=== PATIENT | female | born 1950 | race Caucasian/White ===

== ENCOUNTER 2018-03-14 12:08 | Inpatient (IN) | payer OTHER ==
[2018-03-14] MEDS ORDERED: IPRATROPIUM BROM 0.5MG/2.5ML ONE (12:58)
[2018-03-14] MEDS ORDERED: ALBUTEROL 2.5 MG/3 ML NEB SOL ONE (12:58)
[2018-03-14 13:13] LABS: Absolute Lymphocytes (CBC) 0.7 K/uL (0.7-4.9); Absolute Monocytes 0.8 K/uL (0.1-1.3); Absolute Neutrophil 6.7 K/uL (1.8-8.0); Basophils % 0.3 % (0-1.3); Eosinophils % 0.3 % (0-4.4); Hematocrit 43.4 % (36.0-45.0); Lymphocytes % 9.1 % (15.3-44.8); MPV 9.2 fL (7.6-11.3); Monocytes % 9.4 % (3.3-12.3); RBC Red Blood Cell Count 4.55 M/uL (3.86-4.86)
--- NOTE | 2018-03-14 13:13 | RAD REPORT ---
EXAM DESCRIPTION: Sergio Single View03/14/2018 1:00 pm CLINICAL HISTORY: Shortness of breath COMPARISON: 2014 FINDINGS: The lungs appear clear of acute infiltrate. The heart is normal size IMPRESSION: No acute abnormalities displayed
[2018-03-14 13:14] LABS: Protime INR 0.92
[2018-03-14 14:31] LABS: ALT/SGPT 37 U/L (12-78); AST/SGOT 31 U/L (15-37); Albumin 2.9 g/dL (3.4-5.0); Alkaline Phosphatase 77 U/L (45-117); BUN Blood Urea Nitrogen 13 mg/dL (7-18); Bicarbonate 36 mmol/L (21-32); Bilirubin Direct 0.3 mg/dL (0-0.2); Bilirubin Total 0.6 mg/dL (0.2-1.0); Glucose Level 99 mg/dL (74-106); Magnesium 1.9 mg/dL (1.8-2.4); NT PRO-BNP 479 pg/mL (<125); Potassium 4.1 mmol/L (3.5-5.1); Protein, Total 6.2 g/dL (6.4-8.2); Troponin (Emerg Dept Use Only) < 0.02 ng/mL (0.0-0.045)
[2018-03-14 14:34] LABS: Sodium Level 111 mmol/L (136-145)
[2018-03-14] MEDS ORDERED: NA CHLORIDE 3% 100 ML IV ONE ×2 (15:00)
--- NOTE | 2018-03-14 15:26 | ER ---
Nurse's Notes [facility] Name: Earnest Baker Age: 67 yrs Sex: Female : 1950 Arrival Date: 03/14/2018 Time: 12:10 Bed 18 Private MD: Diagnosis: Hyponatremia ;Chronic obstructive pulmonary disease, unspecified;Urinary tract infection, site not specified Presentation: 03/14 12:10 Presenting complaint: EMS states: called out for depression for several days, pt em reports loss of appetite for 2 weeks, pt reports wants to shoot herself. Transition of care: patient was not received from another setting of care. Onset of symptoms was February 2018. Risk Assessment: Do you want to hurt yourself or someone else? Patient reports desire/thoughts of hurting themselves or someone else. Provider notified. Initial Sepsis Screen: Does the patient meet any 2 criteria? No. Patient's initial sepsis screen is negative. Does the patient have a suspected source of infection? No. Patient's initial sepsis screen is negative. Care prior to arrival: None. 12:10 Method Of Arrival: EMS: [facility] em 12:25 Acuity: AMANDA 2 iw Triage Assessment: 12:14 General: Appears in no apparent distress. comfortable, Behavior is calm, cooperative, em flat. Pain: Complains of pain in lumbar area. Historical: - Allergies: 12:14 No Known Allergies; em - Home Meds: 12:14 lisinopril 10 mg Oral tab [Active]; em - PMHx: 12:14 COPD; Hypertension; em - Immunization history:: Adult Immunizations up to date. - Social history:: Smoking status: Patient uses tobacco products, smokes one pack cigarettes per day. - Ebola Screening: : Patient negative for fever greater than or equal to 101.5 degrees Fahrenheit, and additional compatible Ebola Virus Disease symptoms Patient denies exposure to infectious person Patient denies travel to an Ebola-affected area in the 21 days before illness onset No symptoms or risks identified at this time. Screenin:19 Abuse screen: Denies threats or abuse. Nutritional screening: No deficits noted. em Tuberculosis screening: No symptoms or risk factors identified. Fall Risk None identified. Assessment: 12:14 General: Appears in no apparent distress. uncomfortable, Behavior is calm, drowsy, em flat, doesn't want to keep going with life, reports depression. Pain: Complains of pain in lumbar area Pain currently is 8 out of 10 on a pain scale. Quality of pain is described as pressure. Neuro: Level of Consciousness is awake, obeys commands, drowsy. Oriented to person, place, time, situation, Weakness Speech is slurred. Cardiovascular: Denies chest pain. Respiratory: Airway is patent Respiratory effort is even, unlabored, Respiratory pattern is regular, symmetrical, Breath sounds with wheezes bilaterally. GI: Abdomen is obese, Reports intolerance of fluids, intolerance of food, nausea. Derm: Skin is intact, Skin is pink, warm \T\ dry. Rash noted that is on buttocks. Musculoskeletal: Range of motion: intact in all extremities. 12:30 Reassessment: I agree with above assessment by Dewey Gonzalez LVN. iw 13:30 Reassessment: Patient appears in no apparent distress at this time. Patient and/or em family updated on plan of care and expected duration. Pain level reassessed. drowsy and sleepy, family at bedside. 14:30 Reassessment: Patient appears in no apparent distress at this time. Patient and/or em family updated on plan of care and expected duration. Pain level reassessed. family at bedside. 15:30 Cardiovascular: Rhythm is pt had one run of V-tach noted at 1529 on vehicle monitor technician, tw2 FABY Bustamante notified, EKG printed from monitor for her chart. 15:48 Reassessment: Patient appears in no apparent distress at this time. Patient and/or em family updated on plan of care and expected duration. Pain level reassessed. NA Chloride 3% complete. 16:23 Reassessment: Dr. Tellez at bedside to assess pt, verbal order received to hold second iw infusion of 3% sodium Chloride, orders for repeat BMP now and start patient on NS infusion at 60 ml/hr. 16:48 Reassessment: Patient appears in no apparent distress at this time. Patient and/or em family updated on plan of care and expected duration. Pain level reassessed. Patient is alert, oriented x 3, equal unlabored respirations, skin warm/dry/pink. resting comfortably in bed, pending ICU admission, pt still drowsy, answers questions appropriately, wakes up with verbal stimuli. 17:29 Reassessment: Patient appears in no apparent distress at this time. Patient and/or em family updated on plan of care and expected duration. Pain level reassessed. Patient is alert, oriented x 3, equal unlabored respirations, skin warm/dry/pink. Dr. Tellez notified of repeat BMP per FABY Best, no new orders given, pending room assignment. 18:02 Reassessment: Patient appears in no apparent distress at this time. Patient and/or em family updated on plan of care and expected duration. Pain level reassessed. Patient is alert, oriented x 3, equal unlabored respirations, skin warm/dry/pink. melt house supervisor notified, waiting for ICU room to be cleaned before room assignment. Psych: 12:15 Subjective: Patient's mood is hopeless, Delusions are denied, Hallucinations are denied em Having thoughts of suicide. Objective: Patient is uncooperative, Speech is normal, Affect is flat. Interventions: Removed personal items and placed in bag. Patient placed in hospital gown. Searched person for dangerous items. Belonging list filled out. Suicide Risk Assessment: Sad Person Scale: Sex of patient: Female: Score 0 points. Age of patient: Score 1 point if patient is over 65. Depression: Score 1 point if signs of depression are present. Organized Plan: Score 1 point if patient had a plan in place. Safety Checks: No visitors are present at this time. Commitment: Patient will be a voluntary commitment. Vital Signs: 12:14 BP 140 / 57; Pulse 73; Resp 22; Temp 97.5(O); Pulse Ox 96% on 2 lpm NC; Weight 75.75 em kg; Height 5 ft. 3 in. (160.02 cm); Pain 8/10; 13:04 BP 108 / 71; Pulse 69; Resp 20; Pulse Ox 100% on Nebulizer Mask; ag 14:00 BP 103 / 60; Pulse 70; Resp 20; Pulse Ox 100% on 2 lpm NC; em 15:00 BP 102 / 56; Pulse 77; Resp 18; Pulse Ox 99% on 2 lpm NC; em 15:51 BP 126 / 64; Pulse 69; Resp 17; Pulse Ox 97% on 2 lpm NC; em 16:15 BP 117 / 61; Pulse 66; Resp 20; Pulse Ox 98% on 2 lpm NC; em 16:55 BP 126 / 67; Pulse 71; Resp 18; Pulse Ox 99% on 2 lpm NC; em 17:37 BP 127 / 71; Pulse 77; Resp 16; Pulse Ox 98% on 2 lpm NC; iw 18:05 BP 131 / 65; Pulse 77; Resp 16; Pulse Ox 100% on 2 lpm NC; em 12:14 Body Mass Index 29.58 (75.75 kg, 160.02 cm) em ED Course: 12:10 Patient arrived in ED. em 12:14 Arm band placed on. em 12:25 Triage completed. iw 12:27 Nasir Angeles PA is PHCP. jr8 12:27 Tai Hall MD is Attending Physician. jr8 12:43 Dewey Gonzalez LVN is Primary Nurse. em 12:49 Missed attempt(s): 22 gauge hand. ag4 13:00 X-ray completed. Portable x-ray completed in exam room. Patient tolerated procedure jb2 well. 13:00 Initial lab(s) drawn, by me, sent to lab. Inserted saline lock: 20 gauge in right em antecubital area, using aseptic technique. Blood collected. 13:02 XRAY Chest (1 view) In Process Unspecified. EDMS 13:03 Safety checks: Items removed: Door open/sign placed on door: yes. Family/friend ag present: yes. Family/friends encouraged to stay with patient. Sitter present: Yes. Side rails up X2. hall monitor on. Pulse ox on. NIBP on. Sitter at bedside. 13:15 Safety checks: Items removed: yes. Door open/sign placed on door: yes. Family/friend ag present: yes. Sitter present: Yes. 13:30 Safety checks: Items removed: yes. Door open/sign placed on door: yes. Family/friend ag present: yes. Sitter present: Yes. 13:45 Safety checks: Items removed: yes. Door open/sign placed on door: yes. Family/friend ag present: no. Sitter present: Yes. 14:00 Safety checks: Items removed: yes. Door open/sign placed on door: yes. Family/friend ag present: yes. Sitter present: Yes. 14:15 Safety checks: Items removed: yes. Door open/sign placed on door: yes. Family/friend ag present: yes. Sitter present: Yes. 14:30 Safety checks: Items removed: yes. Door open/sign placed on door: yes. Family/friend ag present: yes. Sitter present: Yes. 14:30 Assisted to bedside commode. Bath given. Linen changed. ag 14:45 Safety checks: Items removed: yes. Door open/sign placed on door: yes. Family/friend ag present: yes. Sitter present: Yes. 15:24 Damion Tellez MD is Hospitalizing Provider. jr8 16:05 Lo cath inserted, using sterile technique, 18 Fr., by ks, balloon inflated, to em gravity drainage, urine specimen collected. returned sanam urine. Patient tolerated well. 18:39 Patient admitted, IV remains in place. em 18:40 No provider procedures requiring assistance completed. em Administered Medications: 12:57 Drug: Albuterol - atroVENT (3:1) (2.5 mg - 0.5 mg) 3 ml Route: Nebulizer; em 15:28 Follow up: Response: No adverse reaction em 15:24 Drug: sodium chloride 3% 100 ml Route: IV; Rate: 1 calculated rate; Site: right em antecubital; 15:48 Follow up: Response: No adverse reaction; IV Status: Completed infusion; IV Intake: em 150ml 16:45 Drug: NS 0.9% 1000 ml Route: IV; Rate: 60 ml/hr; Site: right antecubital; iw 17:22 Drug: Rocephin 1 grams Route: IV; Rate: calculated rate; Site: right antecubital; iw 17:34 Follow up: Response: No adverse reaction; IV Status: Completed infusion; IV Intake: 10mlem Intake: 15:48 IV: 150ml; Total: 150ml. em 17:34 IV: 10ml; Total: 160ml. em Outcome: 15:25 Decision to Hospitalize by Provider. jr8 18:39 Admitted to ICU accompanied by nurse, accompanied by tech, via stretcher, room 7, with em oxygen, on monitor, with chart, Report called to MANAV Watts 18:39 Condition: good 18:39 Instructed on the need for admit, Demonstrated understanding of instructions. 18:43 Patient left the ED. em Signatures: Dispatcher [employer] Jean Carlos Sims jb2 Dewey Gonzalez, PRINTING PLATE SETTER PRINTING PLATE SETTER em Yin Alex RN RN iw Nasir Angeles PA PA jr8 Martha Cárdenas Tara RN RN tw2 Shaggy Nam ag4 Corrections: (The following items were deleted from the chart) 16:50 12:14 Neuro: Level of Consciousness is awake, alert, obeys commands, Oriented to em person, place, time, situation, Weakness Speech is slurred, em 16:50 12:14 Respiratory: Airway is patent Breath sounds with wheezes bilaterally. em em 16:50 12:14 Derm: Skin is intact, Skin is pink, warm \T\ dry. em em 16:53 16:48 Reassessment: Patient appears in no apparent distress at this time. em em
--- NOTE | 2018-03-14 15:26 | EDPHYS ---
Physician Documentation [facility] Name: Earnest Baker Age: 67 yrs Sex: Female : 1950 Arrival Date: 03/14/2018 Time: 12:10 Bed 18 Private MD: ED Physician Tai Hall HPI: 03/14 14:15 This 67 yrs old Female presents to ER via EMS with complaints of Depression, jr8 cough, not sleeping well. 14:15 Patient stated that she goes through bouts of depression. Lasting longer this time. Has jr8 not been eating or sleeping well. History of COPD and feels that she is getting more short of breath. Told family that she wanted to kill herself. Denies plan. Stated that she really does not want to kill herself but is having a hard time coping with everything on top of her chronic illnesses . Severity of symptoms: At their worst the symptoms were moderate in the emergency department the symptoms are unchanged. It is unknown whether or not the patient has had similar symptoms in the past. The patient has not recently seen a physician. Historical: - Allergies: 12:14 No Known Allergies; em - Home Meds: 12:14 lisinopril 10 mg Oral tab [Active]; em - PMHx: 12:14 COPD; Hypertension; em - Immunization history:: Adult Immunizations up to date. - Social history:: Smoking status: Patient uses tobacco products, smokes one pack cigarettes per day. - Ebola Screening: : Patient negative for fever greater than or equal to 101.5 degrees Fahrenheit, and additional compatible Ebola Virus Disease symptoms Patient denies exposure to infectious person Patient denies travel to an Ebola-affected area in the 21 days before illness onset No symptoms or risks identified at this time. ROS: 14:15 Eyes: Negative for injury, pain, redness, and discharge, ENT: Negative for injury, jr8 pain, and discharge, Neck: Negative for injury, pain, and swelling, Cardiovascular: Negative for chest pain, palpitations, and edema, Abdomen/GI: Negative for abdominal pain, nausea, vomiting, diarrhea, and constipation, Back: Negative for injury and pain, MS/Extremity: Negative for injury and deformity, Skin: Negative for injury, rash, and discoloration, Neuro: Negative for headache, weakness, numbness, tingling, and seizure. 14:15 Respiratory: Positive for cough, shortness of breath, wheezing. 14:15 Psych: Positive for depression. Exam: 14:15 Eyes: Pupils equal round and reactive to light, extra-ocular motions intact. Lids and jr8 lashes normal. Conjunctiva and sclera are non-icteric and not injected. Cornea within normal limits. Periorbital areas with no swelling, redness, or edema. ENT: Nares patent. No nasal discharge, no septal abnormalities noted. Tympanic membranes are normal and external auditory canals are clear. Oropharynx with no redness, swelling, or masses, exudates, or evidence of obstruction, uvula midline. Mucous membranes moist. Neck: Trachea midline, no thyromegaly or masses palpated, and no cervical lymphadenopathy. Supple, full range of motion without nuchal rigidity, or vertebral point tenderness. No Meningismus. Cardiovascular: Regular rate and rhythm with a normal S1 and S2. No gallops, murmurs, or rubs. Normal PMI, no JVD. No pulse deficits. Abdomen/GI: Soft, non-tender, with normal bowel sounds. No distension or tympany. No guarding or rebound. No evidence of tenderness throughout. Back: No spinal tenderness. No costovertebral tenderness. Full range of motion. Skin: Warm, dry with normal turgor. Normal color with no rashes, no lesions, and no evidence of cellulitis. MS/ Extremity: Pulses equal, no cyanosis. Neurovascular intact. Full, normal range of motion. Neuro: Awake and alert, GCS 15, oriented to person, place, time, and situation. Cranial nerves II-XII grossly intact. Motor strength 5/5 in all extremities. Sensory grossly intact. Cerebellar exam normal. Normal gait. 14:15 Respiratory: the patient does not display signs of respiratory distress, Respirations: normal, symetrical, no use of accessory muscles, no grunting, no evidence of nasal flaring, no prolonged exhalations, no pursed lip breathing, no retractions, no shallow respirations, no splinting, no tachypnea, Breath sounds: rhonchi, that are mild, are located in both bases, wheezing: expiratory that is mild, is heard diffusely. Vital Signs: 12:14 BP 140 / 57; Pulse 73; Resp 22; Temp 97.5(O); Pulse Ox 96% on 2 lpm NC; Weight 75.75 em kg; Height 5 ft. 3 in. (160.02 cm); Pain 8/10; 13:04 BP 108 / 71; Pulse 69; Resp 20; Pulse Ox 100% on Nebulizer Mask; ag 14:00 BP 103 / 60; Pulse 70; Resp 20; Pulse Ox 100% on 2 lpm NC; em 15:00 BP 102 / 56; Pulse 77; Resp 18; Pulse Ox 99% on 2 lpm NC; em 15:51 BP 126 / 64; Pulse 69; Resp 17; Pulse Ox 97% on 2 lpm NC; em 16:15 BP 117 / 61; Pulse 66; Resp 20; Pulse Ox 98% on 2 lpm NC; em 16:55 BP 126 / 67; Pulse 71; Resp 18; Pulse Ox 99% on 2 lpm NC; em 17:37 BP 127 / 71; Pulse 77; Resp 16; Pulse Ox 98% on 2 lpm NC; iw 18:05 BP 131 / 65; Pulse 77; Resp 16; Pulse Ox 100% on 2 lpm NC; em 12:14 Body Mass Index 29.58 (75.75 kg, 160.02 cm) em MDM: 12:27 Patient medically screened. jr8 15:18 Data reviewed: vital signs, nurses notes, lab test result(s), radiologic studies, plain jr8 films, and as a result, I will admit patient. Data interpreted: Pulse oximetry: on room air is 100 %. Interpretation: normal. Counseling: I had a detailed discussion with the patient and/or guardian regarding: the historical points, exam findings, and any diagnostic results supporting the discharge/admit diagnosis, lab results, radiology results, the need for further work-up and treatment in the hospital. Physician consultation: Damion Tellez MD was called at 15:24, was contacted at 15:24, regarding admission, to the ICU, consult, patient's condition, and will see patient. ED course: Dr. Harrington consulted for nephrology and will see patient. Wants us to do 3% NS 100 ml IV push over 20 min. See if she opens up. If not to give second dose and then recheck bmp. Send to ICU. 03/14 12:39 Order name: CBC with Diff; Complete Time: 13:24 jr8 03/14 12:39 Order name: PT-INR; Complete Time: 13:24 jr8 03/14 13:44 Order name: Basic Metabolic Panel; Complete Time: 14:49 [facility] 03/14 13:44 Order name: Liver (Hepatic) Function; Complete Time: 14:49 [facility] 03/14 12:39 Order name: XRAY Chest (1 view); Complete Time: 13:24 [facility] 03/14 13:44 Order name: Troponin (Emerg Dept Use Only); Complete Time: 14:49 [facility] 03/14 13:44 Order name: NT PRO-BNP; Complete Time: 14:49 [facility] 03/14 13:44 Order name: Magnesium; Complete Time: 14:49 [facility] 03/14 14:49 Order name: Osmolality, Serum; Complete Time: 16:53 [facility] 03/14 16:26 Order name: BMP iw 03/14 16:59 Order name: UDS [facility] 03/14 17:00 Order name: Urine Microscopic Only [facility] 03/14 17:10 Order name: Urine Dipstick--Ancillary (enter results) 03/14 17:11 Order name: Basic Metabolic Panel; Complete Time: 17:13 [facility] 03/14 17:16 Order name: Urine Microscopic Only; Complete Time: 17:17 [facility] 03/14 17:16 Order name: Urine Dipstick-Ancillary; Complete Time: 17:17 [facility] 03/14 17:30 Order name: Urine Drug Screen; Complete Time: 18:03 [facility] 03/14 12:39 Order name: EKG; Complete Time: 12:40 [facility] 03/14 12:39 Order name: Cardiac monitoring; Complete Time: 12:44 [facility] 03/14 12:39 Order name: EKG - Nurse/Tech; Complete Time: 12:44 [facility] 03/14 12:39 Order name: IV Saline Lock; Complete Time: 12:44 [facility] 03/14 12:39 Order name: Labs collected and sent; Complete Time: 12:43 [facility] 03/14 12:39 Order name: O2 Per Protocol; Complete Time: 12:43 [facility] 03/14 12:39 Order name: O2 Sat Monitoring; Complete Time: 12:43 [facility] 03/14 15:26 Order name: Misc. Order: To give the 3% NS over 20 min. Wait 30 minutes. If better do [facility] not give second infusion and recheck BMP. If not repeat; Complete Time: 16:26 Administered Medications: 12:57 Drug: Albuterol - atroVENT (3:1) (2.5 mg - 0.5 mg) 3 ml Route: Nebulizer; em 15:28 Follow up: Response: No adverse reaction em 15:24 Drug: sodium chloride 3% 100 ml Route: IV; Rate: 1 calculated rate; Site: right em antecubital; 15:48 Follow up: Response: No adverse reaction; IV Status: Completed infusion; IV Intake: em 150ml 16:45 Drug: NS 0.9% 1000 ml Route: IV; Rate: 60 ml/hr; Site: right antecubital; iw 17:22 Drug: Rocephin 1 grams Route: IV; Rate: calculated rate; Site: right antecubital; iw 17:34 Follow up: Response: No adverse reaction; IV Status: Completed infusion; IV Intake: 10mlem Disposition: 03/15 09:31 Co-signature as Attending Physician, Tai Hall MD. Disposition: 03/14/18 15:25 Hospitalization ordered by Damion Tellez for Inpatient Admission. Preliminary diagnosis are Hyponatremia , Chronic obstructive pulmonary disease, unspecified, Urinary tract infection, site not specified. - Bed requested for Intensive Care Unit. - Status is Inpatient Admission. em - Condition is Stable. - Problem is new. - Symptoms have improved. UTI on Admission? Yes Signatures: Dispatcher [employer] EDMS Dewey Gonzalez, SPECIAL EDUCATION KINDERGARTEN TEACHER SPECIAL EDUCATION [employer]ER[employer] TEACHER em Yin Alex RN RN iw Roszak, Josh, PA PA jr8 Yasmine Butler RN RN df Starr, Gregory, MD MD Corrections: (The following items were deleted from the chart) 03/14 13:16 12:40 BASIC METABOLIC PANEL+C.LAB.BRZ ordered. EDMS EDMS 13:16 12:40 HEPATIC FUNCTION+C.LAB.BRZ ordered. EDMS EDMS 13:16 12:40 MAGNESIUM+C.LAB.BRZ ordered. EDMS EDMS 13:16 12:40 PROBNP+C.LAB.BRZ ordered. EDMS EDMS 13:16 12:40 TROPONIN (EMERG DEPT USE ONLY)+C.LAB.BRZ ordered. EDMS EDMS 13:39 13:17 Basic Metabolic Panel ordered. EDMS EDMS 13:39 13:17 Liver (Hepatic) Function ordered. [facility] EDIA 13:39 13:17 Troponin (Emerg Dept Use Only) ordered. [facility] EDIA 13:39 13:17 NT PRO-BNP ordered. [facility] EDIA 13:39 13:17 Magnesium ordered. [facility] 17:17 15:25 Hospitalization Ordered by Damion Tellez MD for Inpatient Admission. Preliminary jr8 diagnosis is Hyponatremia ; Chronic obstructive pulmonary disease, unspecified. Bed requested for Intensive Care Unit. Status is Inpatient Admission. Condition is Stable. Problem is new. Symptoms have improved. UTI on Admission? No. jr8 18:13 17:17 03/14/2018 15:25 Hospitalization Ordered by Damion Tellez MD for Inpatient df Admission. Preliminary diagnosis is Hyponatremia ; Chronic obstructive pulmonary disease, unspecified; Urinary tract infection, site not specified. Bed requested for Intensive Care Unit. Status is Inpatient Admission. Condition is Stable. Problem is new. Symptoms have improved. UTI on Admission? Yes. jr8 18:43 18:13 03/14/2018 15:25 Hospitalization Ordered by Damion Tellez MD for Inpatient em Admission. Preliminary diagnosis is Hyponatremia ; Chronic obstructive pulmonary disease, unspecified; Urinary tract infection, site not specified. Bed requested for Intensive Care Unit. Status is Inpatient Admission. Condition is Stable. Problem is new. Symptoms have improved. UTI on Admission? Yes. df
--- NOTE | 2018-03-14 16:01 | EKG ---
Test Date: 2018-03-14 Test Time: 12:51:50 Door To Door Selling Agent: LOIS MEASUREMENT RESULTS: Intervals: Rate: 74 AL: 178 QRSD: 78 QT: 378 QTc: 419 [place]: P: 73 AL: 178 QRS: 45 T: 56 INTERPRETIVE STATEMENTS: Normal sinus rhythm Anteroseptal infarct, age undetermined Abnormal ECG Compared to ECG 06/23/2014 16:11:01 No significant changes Electronically Signed On 03-14-18 16:00:53 VICE PRESIDENT OF SOFTWARE DEVELOPMENT by Art Perez
[2018-03-14] MEDS ORDERED: NA CHLORIDE 0.9% 1,000 ML ONE (16:51)
[2018-03-14] MEDS ORDERED: NA CHLORIDE 0.9% 1,000 ML IV SCH ×2 (17:00→20:00)
[2018-03-14 17:15] LABS: Urine Bacteria LOADED /HPF (<20); Urine Culture Reflex Order REFLEXED; Urine Mucus 2+ /HPF (NONE SEEN)
[2018-03-14 17:16] LABS: Urine Blood 1+ (NEG); Urine Glucose NEGATIVE (NEG); Urine Protein 1+ (NEG)
[2018-03-14 17:29] LABS: Barbiturates NEGATIVE (NEGATIVE); Benzodiazepines POSITIVE (NEGATIVE); Cocaine NEGATIVE (NEGATIVE); METHAMPHETAM NEGATIVE (NEGATIVE); Methadone NEGATIVE (NEGATIVE); Opiates POSITIVE (NEGATIVE); Phencyclidine NEGATIVE (NEGATIVE); THC Cannibis NEGATIVE (NEGATIVE)
[2018-03-14] MEDS ORDERED: CEFTRIAXONE/SWI 1gm 1 GM/10 ML SYR ONE (17:29)
[2018-03-14] MEDS ORDERED: ACETAMINOPHEN 500 MG TAB PO PRN (18:22)
[2018-03-14] MEDS ORDERED: ONDANSETRON 4 MG/2 ML VIAL IV PRN (18:22)
[2018-03-14] MEDS: ENOXAPARIN 40 MG/0.4 ML SQ SCH (20:42)
[2018-03-14] MEDS: ALBUTEROL 2.5 MG/3 ML NEB SOL NEB PRN (21:19)
[2018-03-14] MEDS: IPRATROPIUM BROM 0.5MG/2.5ML NEB PRN (21:19)
[2018-03-14 23:10] LABS: Potassium 3.9 mmol/L (3.5-5.1)
[2018-03-15] MEDS ORDERED: NA CHLORIDE 0.9% 1,000 ML IV SCH ×2 (02:00→14:00)
[2018-03-15 04:16] LABS: Absolute Lymphocytes (CBC) 0.8 K/uL (0.7-4.9); Absolute Monocytes 0.8 K/uL (0.1-1.3); Absolute Neutrophil 6.7 K/uL (1.8-8.0); Basophils % 0.3 % (0-1.3); Eosinophils % 0.2 % (0-4.4); Hematocrit 40.8 % (36.0-45.0); Lymphocytes % 9.9 % (15.3-44.8); MPV 8.8 fL (7.6-11.3); Monocytes % 9.1 % (3.3-12.3); RBC Red Blood Cell Count 4.25 M/uL (3.86-4.86)
--- NOTE | 2018-03-15 04:20 | HP ---
Date of Admission: 03/14/2018 Chief Complaint: Altered mental status and generalized weakness. Code Status: Full. History Of Present Illness: Patient is a 67-year-old female with past medical history of the COPD, h ypothyroidism, hypertension, morbid obesity. Patient also has history of depression. She was in her usual state of health until 2 weeks prior to admission when the patient started having some generali zed weakness, not tolerating her food, not eating well, not sleeping well. Patient told her family t hat she wanted to kill herself. However, in the ER, patient denies any plan to kill herself. Accord ing to the , she states that patient does get depressed from holidays and has hard time coping . Discussing with the patient directly, she denies any suicidal ideation or intention. Patient's wo rkup revealed sodium level of 111, which was normal back in February 2018. WBC count was normal. UA was positive for urinary tract infection. Patient's symptoms were constant, moderate, and progressi vely worsening. Patient was referred for admission for hyponatremia. Dr. Harrington with Nephrology was consulted by the ER. He recommended hypertonic saline 100 mL over 20 minutes, which was given. However, her repeat sodium level did not improve. Patient's mental status remained the same as well. Patient was then referred for admission. When seen in the ER, she was awake, alert, oriented x3. However, somewhat lethargic and drowsy. Of note, patient is on chronic pain medications Channahon, unabl e to tell me how much she is taking today. Past Medical History: COPD, hypertension, chronic pain syndrome, on narcotics; major depressive diso rder. Past Surgical History: None. Allergies: NO KNOWN DRUG ALLERGIES. Medications: List reviewed. Family History: No premature coronary artery disease in the family. Social History: Patient is , lives with her . Has a daughter. Does use an assistive ambulatory device for ambulation. Denies any alcohol use or illicit drug use. Patient does smoke 1 pack per day. Review of Systems: Somewhat limited due to patient's medical condition, however, 10-point system reviewed and negative e xcept as per HPI. Physical Examination: VITAL SIGNS: Blood pressure 140/57, pulse 73, respirations 22, temperature 97.5, O2 96% on 2 L via n jagdish cannula. GENERAL: Awake, but drowsy, oriented x3, in some mild distress. Elderly female, ill appearing, morb idly obese. HEENT: Normocephalic, atraumatic. PERRLA. EOMI. Dry mucous membranes. Poor dentition. Conjuncti vae anicteric. NECK: Supple. No JVD. Trachea midline. CV: S1, S2. Regular rate and rhythm. Peripheral pulses are present. No murmurs. RESPIRATORY: Moving air well bilaterally. No wheezing or stridor. No use of accessory muscles. GASTROINTESTINAL: Abdomen is soft, nontender, nondistended. Positive bowel sounds. EXTREMITIES: No clubbing, cyanosis, or edema. No calf tenderness. NEURO: Cranial nerves 2 through 12 intact grossly. There is no focal neurological deficit. Speech is normal. SKIN: Patient does have stage I decubitus ulcer on the sacrum. Has multiple ecchymoses on her lower extremities, more numerous on the left lower extremity from recent fall. Laboratory Data: Sodium 111, potassium 4.1, chloride 70, CO2 36, BUN 13, creatinine 0.65, glucose 99 , serum osmolality 233, calcium 8.2, magnesium 1.9. Troponin less than 0.02. BNP 479. INR 0.92. W BC 8.2, H and H 15.2 and 43.4, platelets 286, neutrophils 80%. Repeat sodium level is still 111. UA ; nitrite negative, leukocyte esterase positive, 5-10 rbc's, 20-50 wbc's, loaded bacteria. UDS posit luh for opiates and benzodiazepines. Chest x-ray personally reviewed, shows no acute abnormality. EKG, sinus rhythm, rate of 74, anteroseptal infarct, age undetermined. No significant changes compar ed to previous. Assessment And Plan: A 67-year-old female with: 1.Acute metabolic encephalopathy likely related to hyponatremia. 2.Severe hyponatremia. Patient has been given hypertonic saline. We will switch to normal saline a t 60 mL/hour. Goal is to increase sodium by half to 1 millimoles/hour to avoid central pontine myeli nolysis. Appreciate Dr. Harrington's input. We will continue to monitor her BMP q.6 hours. Serum os molality is low. Patient is hypovolemic. 3.Major depressive disorder, current episode. We will hold Effexor, likely cause of hyponatremia. Patient is not suicidal at this time. 4.Chronic obstructive pulmonary disease, chronic bronchitis, not on oxygen. We will continue with n ebulizer treatments as needed. 5.Acute cystitis with hematuria. We will continue with Rocephin. 6.Essential hypertension, stable. 7.Morbid obesity. 8.Stage I decubitus ulcer, present on admission. 9.Gastrointestinal and deep venous thrombosis prophylaxis addressed with PPI and Lovenox. Plan: Admit patient to ICU, place as inpatient with remote cardiac telemetry. /TASH Voice ID: [id number]
[2018-03-15 04:38] LABS: Thyroid Stimulating Hormone 1.53 uIU/mL (0.360-3.740); Uric Acid 7.2 mg/dL (2.6-6.0)
[2018-03-15 04:48] LABS: ALT/SGPT 33 U/L (12-78); AST/SGOT 27 U/L (15-37); Albumin 2.7 g/dL (3.4-5.0); Alkaline Phosphatase 69 U/L (45-117); BUN Blood Urea Nitrogen 14 mg/dL (7-18); Bicarbonate 31 mmol/L (21-32); Bilirubin Total 0.6 mg/dL (0.2-1.0); Glucose Level 98 mg/dL (74-106); Protein, Total 5.8 g/dL (6.4-8.2)
[2018-03-15 04:49] LABS: Sodium Level 114 mmol/L (136-145)
[2018-03-15] MEDS: CEFTRIAXONE/SWI 1gm 1 GM/10 ML SYR IVP SCH (08:16)
[2018-03-15] MEDS: ENOXAPARIN 40 MG/0.4 ML SQ SCH (08:16)
--- NOTE | 2018-03-15 08:21 | RAD REPORT ---
EXAM DESCRIPTION: RAD - Chest Single View - 03/14/2018 11:24 pm CLINICAL HISTORY: PICC line placement A preliminary report was provided at the time of the study and reviewed prior to final report. COMPARISON: March 14 FINDINGS: Portable chest was obtained following placement of a right upper extremity PICC line. The catheter tip is in the mid SVC.
--- NOTE | 2018-03-15 08:21 | RAD REPORT ---
EXAM DESCRIPTION: RAD - Chest Single View - 03/14/2018 10:19 pm CLINICAL HISTORY: PICC line placement A preliminary report was provided at the time of the study and reviewed prior to final report. COMPARISON: March 14 FINDINGS: Portable chest was obtained following placement of a right upper extremity PICC line. The catheter tip is overlying the left side of the chest believed to be artifact of significant rotation on this examination. Tip is likely in the proximal to mid SVC. This could be confirmed with a follow- up examination with optimal patient positioning.
[2018-03-15 12:08] LABS: BUN Blood Urea Nitrogen 14 mg/dL (7-18); Bicarbonate 31 mmol/L (21-32); Glucose Level 106 mg/dL (74-106); Potassium 4.2 mmol/L (3.5-5.1)
[2018-03-15 12:09] LABS: Sodium Level 113 mmol/L (136-145)
--- NOTE | 2018-03-15 12:32 | PN ---
Date of Progress Note: 03/15/2018 Subjective: The patient is seen and examined. Chart reviewed, and case discussed with RN and Nephro logy. The patient is still confused, however, arousable. Uneventful night. Medications: List reviewed. Physical Examination: Vital Signs: Temperature 98.3, heart rate 83, blood pressure 132/61, respirations 20, O2 of 95% on 2 L via nasal cannula. General: Awake, alert, oriented x1. A confused, elderly female, morbidly obese, ill-appearing. CV: S1 and S2. Regular rate and rhythm. Peripheral pulses present. Respiratory: Moving air well bilaterally. No wheezing. Gastrointestinal: Abdomen is soft, nontender, nondistended. Positive bowel sounds. Extremities: No clubbing or cyanosis. The patient has pedal edema. NEURO: Nonfocal. SKIN: Multiple ecchymoses on the bilateral lower extremities. Laboratory Data: Sodium 114, potassium 4, chloride 73, CO2 of 31, BUN 14, creatinine 0.65, glucose 9 8, calcium 8.1, albumin 2.7. WBC 8.3, H and H 14.1 and 40.8, platelets 246, neutrophils 80%. Urine culture growing out gram-negative rods. Chest x-ray shows right upper extremity PICC line in place. Assessment: A 67-year-old female with: 1.Acute metabolic encephalopathy secondary to hyponatremia and urinary tract infection. 2.Severe hyponatremia. We will continue with gradual replacement of sodium to avoid central pontine myelinolysis. Nephrology on board. Sodium is 114. We will adjust IV fluids as needed. We will co ntinue to monitor sodium levels periodically. Hyponatremia in the setting of hypovolemia. 3.Acute cystitis with hematuria. We will continue Rocephin. Cultures growing gram-negative rods. We will follow up on ID and sensitivity. 4.Major depressive disorder. We will hold SSRI due to hyponatremia. 5.Chronic obstructive pulmonary disease, chronic bronchitis. Not on home O2. Continue p.r.n. nebul izers. 6.Essential hypertension, stable. 7.Morbid obesity, BMI 47. 8.Stage I decubitus ulcer, present on admission. Continue offloading. 9.Gastrointestinal and deep venous thrombosis prophylaxis with PPI and Lovenox. Plan: Continue to monitor in ICU setting. SA/MODL Voice ID: [id number] Report ID: [id number]
[2018-03-15] MEDS: NA CHLORIDE 0.9% 1,000 ML IV SCH (13:47)
[2018-03-15] MEDS ORDERED: NA CHLORIDE 0.9% 1,000 ML ONE (13:54)
--- NOTE | 2018-03-15 16:52 | CON ---
Date of Consultation: 03/15/2018 Additional Consulting Physician: Dr. Tellez. Reason For Consultation: Hyponatremia. History Of Present Illness: All the information has been obtained from the record. The patient has altered mental status. This is a pleasant 67-year-old female with significant past medical history o f COPD, hypertension, obesity, depression. The patient was in her regular state of health until 2 we eks ago when the patient started feeling weak with leg pain with a questionable hallucination and saw cidal. The patient's started giving her ibuprofen 2 tablets every 8 hours for the last few d ays. The patient's mental status got deteriorated. The patient had poor intake for the last few wee ks, for that reason was brought to the hospital. When she arrived, found to have sodium down to 111 with altered mental status. The patient, over the night, was given hypertonic fluid. Workup showed urine sodium of 7, sodium in the serum has been increased from 111 to 114. The patient still has dec reased urine output. Past Medical History: Include: 1.COPD. 2.Hypertension. 3.Low back pain. Past Surgical History: Negative. Allergies: NO KNOWN DRUG ALLERGIES. Family History: Positive for coronary artery disease. Social History: Lives with . Denies smoking. Denies drinking. Denies drugs abuse. Medications: Home medications include: 1.Tramadol. 2.Lisinopril. 3.Lidocaine. 4.Levothyroxine. Current medications in the hospital include Cipro, breathing treatment, levothyroxine. Review of Systems: Not obtainable. Physical Examination: Vital Signs: When I saw the patient, blood pressure 147/62, pulse of 80. Chest: Clear to auscultation. Heart: S1, S2. Regular. Abdomen: Soft, nontender. Extremities: No edema. Neuro: Moving 4 extremities. Nonfocal. Not alert. Laboratory Data: WBC 8.3, H and H 14.1/40.8, platelets 246. Sodium 113, potassium 4.2, bicarb 31, B UN 14, creatinine 0.6, calcium 8.1, uric acid 7.2, cortisol level of 31, TSH 1.5. Urinalysis; specif ic gravity of 1.020, wbc of 50, urine sodium of 7, urine osmolality of 463. Assessment And Plan: 1.Hyponatremia, multifactorial, secondary to depletional prerenal, superimposed with nonsteroidal us e and HENRI inhibitor. I am going to bolus the patient with 1 L and increase IV fluid to 100, and we w ill repeat urine electrolyte now and after 3 hours, then we will adjust the fluid depending on that. 2.Alkalosis secondary to contraction alkalosis. We will follow up with the hydration. 3.Altered mental status, as by primary. ELI/TASH Voice ID: [id number] Report ID: [id number]
[2018-03-15] MEDS ORDERED: KETOROLAC 30 MG/ML INJ IV ONE (17:01)
[2018-03-15 17:52] LABS: Urine Appearance CLOUDY; Urine Blood 3+ (NEG); Urine Color YELLOW; Urine Glucose NEGATIVE (NEG); Urine Protein 1+ (NEG); Urine Specific Gravity 1.025 (1.005-1.030); Urine pH 6.5 (5.0-7.0)
[2018-03-15 18:33] LABS: BUN Blood Urea Nitrogen 13 mg/dL (7-18); Bicarbonate 29 mmol/L (21-32); Glucose Level 94 mg/dL (74-106); Potassium 4.1 mmol/L (3.5-5.1)
[2018-03-15 18:40] LABS: Sodium Level 114 mmol/L (136-145)
[2018-03-15 18:45] LABS: Urine Bilirubin 1+ (NEG); Urine Microscopic Reflex ORDER UMIC
[2018-03-15] MEDS ORDERED: FUROSEMIDE 20 MG/ 2ML VIAL IV ONE (18:45)
[2018-03-15 18:55] LABS: Urine Bacteria 20-50 /HPF (<20); Urine Culture Reflex Order REFLEXED
[2018-03-16] MEDS: NA CHLORIDE 0.9% 1,000 ML IV SCH ×2 (00:14→09:31)
[2018-03-16 01:00] LABS: BUN Blood Urea Nitrogen 12 mg/dL (7-18); Bicarbonate 31 mmol/L (21-32); Glucose Level 92 mg/dL (74-106); Potassium 3.8 mmol/L (3.5-5.1); Sodium Level 115 mmol/L (136-145)
[2018-03-16 05:47] LABS: Absolute Lymphocytes (CBC) 0.9 K/uL (0.7-4.9); Absolute Monocytes 0.6 K/uL (0.1-1.3); Absolute Neutrophil 4.7 K/uL (1.8-8.0); Basophils % 0.3 % (0-1.3); Eosinophils % 0.6 % (0-4.4); Hematocrit 40.9 % (36.0-45.0); Lymphocytes % 14.9 % (15.3-44.8); Monocytes % 9.3 % (3.3-12.3); RBC Red Blood Cell Count 4.23 M/uL (3.86-4.86)
[2018-03-16] MEDS: LEVOTHYROXINE SOD 0.05 MG TABLET PO SCH (05:58)
[2018-03-16 06:16] LABS: ALT/SGPT 32 U/L (12-78); AST/SGOT 23 U/L (15-37); Albumin 2.6 g/dL (3.4-5.0); Alkaline Phosphatase 68 U/L (45-117); BUN Blood Urea Nitrogen 11 mg/dL (7-18); Bicarbonate 30 mmol/L (21-32); Bilirubin Total 0.5 mg/dL (0.2-1.0); Glucose Level 85 mg/dL (74-106); Phosphorus 1.6 mg/dL (2.5-4.9); Potassium 3.9 mmol/L (3.5-5.1); Protein, Total 5.8 g/dL (6.4-8.2)
[2018-03-16 06:30] LABS: Sodium Level 117 mmol/L (136-145)
[2018-03-16] MEDS: ENOXAPARIN 40 MG/0.4 ML SQ SCH (08:54)
[2018-03-16] MEDS: CEFTRIAXONE/SWI 1gm 1 GM/10 ML SYR IVP SCH (08:54)
[2018-03-16] MEDS ORDERED: FUROSEMIDE 20 MG/ 2ML VIAL IV SCH (12:00)
--- NOTE | 2018-03-16 12:56 | RAD REPORT ---
EXAM DESCRIPTION: RAD - Chest Single View - 03/16/2018 12:51 pm CLINICAL HISTORY: crackles Chest pain. COMPARISON: Chest Single View dated 03/14/2018; Chest Single View dated 03/14/2018; Chest Single View dated 03/14/2018; Abdomen 1 View (KUB) dated 11/23/2015 FINDINGS: Portable technique limits examination quality. The lungs are grossly clear. The heart is normal in size. No displaced fractures.Right-sided PICC last e has tip in the SVC. IMPRESSION: No acute intrathoracic process suspected.
[2018-03-16] MEDS ORDERED: POTASSIUM PHOS 20 MM in NA CHLORIDE 0.9% 500 ML IV ONE (14:00)
[2018-03-16] MEDS ORDERED: SODIUM CHLORIDE 1 GM TAB PO SCH (17:00)
--- NOTE | 2018-03-16 17:20 | PN ---
Date of Progress Note: 03/16/2018 The patient seen and examined. Chart reviewed and case discussed with RN. The patient is still conf used, somewhat better than yesterday, not as drowsy and not complaining of any pain. Medications: List reviewed. Physical Examination: Vital Signs: Temperature 97.3, heart rate 78, blood pressure 154/64, respirations 23, O2 95% on 2 L via nasal cannula. General: Awake, alert, oriented x1, in no acute distress. Morbidly obese, ill-appearing female. CV: S1, S2. Regular rate and rhythm. Peripheral pulses present. Respiratory: Moving air well bilaterally. No wheezing. Gastrointestinal: Abdomen is soft, nontender, nondistended. Positive bowel sounds. Extremities: No clubbing, cyanosis. Trace pedal edema. Skin: Sacral decubitus ulcer, stage I. Neurologic: Nonfocal. Laboratory Data: Sodium 117, potassium is 3.9, chloride is 78, CO2 30, BUN 11, creatinine 0.47, gluc ose 85, calcium 7.6, phosphorus 1.6, albumin is 2.6. WBC 6.3, H and H 14.1 and 40.9, platelets 215, neutrophils 74%. Urine culture growing out E. coli sensitive to Rocephin. Assessment And Plan: A 67-year-old female with: 1.Acute metabolic encephalopathy secondary to hyponatremia and urinary tract infection, improving. The patient is still confused, however, not as lethargic. 2.Severe hyponatremia, hypovolemic. We will continue gradual replacement of sodium currently at 117 . We will adjust IV fluids as necessary. Appreciate Dr. Segovia's input. Monitor sodium levels cl osely. 3.Acute cystitis with hematuria secondary to Escherichia coli, sensitive to Rocephin. We will racheal nue with IV antibiotics. 4.Major depressive disorder. SSRI on hold due to hyponatremia. 5.Chronic obstructive pulmonary disease, chronic bronchitis. Continue nebulizer treatments. 6.Essential hypertension, stable. 7.Morbid obesity, BMI 47. 8.Stage I decubitus ulcer, present on admission, will continue offloading. 9.Gastrointestinal and deep venous thrombosis prophylaxis with PPI and Lovenox. Plan: Continue to monitor in the ICU setting. SA/MODL Voice ID: [id number] Report ID: [id number]
--- NOTE | 2018-03-16 17:45 | PN ---
Date of Progress Note: 03/16/2018 NEPHROLOGY FOLLOWUP Subjective: The patient is more awake today. The patient yesterday received Lasix, has better urine output. Her sodium is trending up. Objective: Vital Signs: Blood pressure 153/71, pulse of 82, afebrile. The patient had urine output of 850 today. Chest: Crackles, bilateral base. Heart: S1, S2. Regular. Abdomen: Soft, nontender. Extremities: Plus edema. Laboratory Data: WBC 6.3, H and H 14.1/40.9, platelets 250. Sodium up to 117, potassium 3.9, bicarb 30, BUN 11, creatinine 0.4, calcium 7.6, phosphorus of 1.6, albumin 2.6. Cortisol level within norm al limit. Urine electrolyte; sodium of 17, potassium of 18. Current Medications: The patient is on include ceftriaxone, breathing treatment, Toradol, normal timbo ine at 100 per hour. Assessment And Plan: 1.Hyponatremia, trending up. I am going to go ahead and add salt tablet. We will place the patient on regular daily dose of Lasix, and we will send for chest x-ray for evaluation for her fluid status , and we will follow up. 2.Hypertension, controlled, optimal. Continue current medication. 3.Hypokalemia, hypophosphatemia. Again, supplement and we will follow up the patient. 4.Urinary tract infection, culture growing Escherichia coli, resistant to quinolone, sensitive to ce phalosporin. We will continue cephalosporin for the time being. Patient if needed to be switched to oral can be switched to Macrobid down in the row. 5.Altered mental status, encephalopathy, recovered, resolved. ELI/TASH Voice ID: [id number] Report ID: [id number]
[2018-03-17 05:41] VITALS: BMI 48.7
[2018-03-17] MEDS: LEVOTHYROXINE SOD 0.05 MG TABLET PO SCH (06:03)
[2018-03-17 06:21] LABS: Absolute Lymphocytes (CBC) 1.1 K/uL (0.7-4.9); Absolute Monocytes 0.9 K/uL (0.1-1.3); Basophils % 0.7 % (0-1.3); Hematocrit 40.2 % (36.0-45.0); Lymphocytes % 15.5 % (15.3-44.8); MPV 9.2 fL (7.6-11.3); RBC Red Blood Cell Count 4.18 M/uL (3.86-4.86)
[2018-03-17 06:42] LABS: ALT/SGPT 31 U/L (12-78); AST/SGOT 20 U/L (15-37); Albumin 2.7 g/dL (3.4-5.0); Alkaline Phosphatase 66 U/L (45-117); BUN Blood Urea Nitrogen 8 mg/dL (7-18); Bicarbonate 36 mmol/L (21-32); Bilirubin Total 0.5 mg/dL (0.2-1.0); Glucose Level 98 mg/dL (74-106); Magnesium 1.9 mg/dL (1.8-2.4); Phosphorus 1.7 mg/dL (2.5-4.9); Potassium 3.4 mmol/L (3.5-5.1); Protein, Total 5.8 g/dL (6.4-8.2); Sodium Level 120 mmol/L (136-145)
[2018-03-17] MEDS ORDERED: POTASSIUM PHOS IN 0.9 % NACL 15 MMOL/250 ML BAG IV ONE (08:18)
[2018-03-17] MEDS: CEFTRIAXONE/SWI 1gm 1 GM/10 ML SYR IVP SCH (08:24)
[2018-03-17] MEDS: FUROSEMIDE 40 MG/4 ML VIAL IV SCH (08:24)
[2018-03-17] MEDS: ENOXAPARIN 40 MG/0.4 ML SQ SCH (08:25)
[2018-03-17] MEDS ORDERED: POTASSIUM 25 MEQ EFFERV TAB PO ONE (09:00)
[2018-03-17] MEDS: ALBUTEROL 2.5 MG/3 ML NEB SOL NEB PRN (09:16)
[2018-03-17] MEDS: IPRATROPIUM BROM 0.5MG/2.5ML NEB PRN (09:16)
[2018-03-17 14:26] LABS: Potassium 3.5 mmol/L (3.5-5.1)
--- NOTE | 2018-03-17 15:34 | PN ---
Subjective: Case discussed with RN and Nephrology. Patient more alert, however, still confused. No acute events overnight. Medications: List reviewed. Physical Examination: Vital Signs: Temperature 97.1, heart rate 81, blood pressure 128/61, respirations 21, O2 98% on nasa l cannula 2 L. General: Awake, alert, oriented x1, no acute distress. Ill-appearing elderly female, morbidly obese. CV: S1, S2. Regular rate and rhythm. Peripheral pulses present. Respiratory: Diminished breath sounds at the bases. No wheezing or stridor. Gastrointestinal: Abdomen is soft, nontender, nondistended. Positive bowel sounds. Extremities: No clubbing or cyanosis. The patient has trace pedal edema. Neurologic: Nonfocal. Skin: Had multiple ecchymoses on the lower extremities and abdomen. Laboratory Data: Sodium 120, potassium 3.4, chloride 77, CO2 of 36, BUN 8, creatinine 0.47, glucose 98, calcium 7.8, phosphorus 1.7, magnesium 1.9, albumin 2.7. WBC 7.1, H and H 13.8 and 40.2, platele ts 271. Cultures growing E coli, sensitive to Rocephin. Assessment And Plan: A 67-year-old female with 1.Acute metabolic encephalopathy secondary to hyponatremia and urinary tract infection. The patient is less agitated and less confused, however, still not oriented and not as lethargic. 2.Hyponatremia, hypovolemic. Continue gradual replacement of sodium. Avoid central pontine myelino lysis. Sodium currently at 120. We will discontinue salt tablets. Continue IV fluids. Appreciate Nephrology input. We will continue to monitor sodium levels closely. 3.Acute cystitis with hematuria secondary to Escherichia coli, sensitive to Rocephin. Continue anti biotics. 4.Major depressive disorder. SSRI on hold due to hyponatremia. 5.Chronic obstructive pulmonary disease, chronic bronchitis. Continue albuterol and ipratropium emerson atments as needed. 6.Essential hypertension, stable. 7.Morbid obesity, BMI of 47. 8.Stage I decubitus ulcer, present on admission. Continue offloading and DuoDerm as needed. 9.Gastrointestinal and deep venous thrombosis prophylaxis with PPI and Lovenox. Plan: Continue monitor in ICU setting. Adjust IV fluids, will replace electrolytes. /MODL Voice ID: [id number] Report ID: [id number]
[2018-03-17 20:32] LABS: BUN Blood Urea Nitrogen 8 mg/dL (7-18); Bicarbonate 40 mmol/L (21-32); Glucose Level 105 mg/dL (74-106); Potassium 3.8 mmol/L (3.5-5.1); Sodium Level 122 mmol/L (136-145)
[2018-03-17] MEDS ORDERED: KCL 20 MEQ/100 mL IVPB 20 MEQ/100 ML BAG IV SCH (21:00)
--- NOTE | 2018-03-18 02:35 | PN ---
Date of Progress Note: 03/17/2018 Chief Complaint: Hyponatremia. Hpi: Severe hyponatremia associated with multiple electrolyte abnormalities including hypophosphatem ia, hypokalemia, and hypomagnesemia. The patient remains in ICU. She was found to have urinary trac t infection and urine culture showed E. coli resistant to fluoroquinolones, but sensitive to cephalos porin. The patient has severe encephalopathy, although her mental status gradually improved. The alecia sher is on breathing treatment, Toradol and normal saline 100 mL per hour. She was on sodium chlori de tablets to stabilize severe hyponatremia. She was screened for adrenal insufficiency and cortisol level was within normal limits. Urine osmolality test was ordered and is pending. Urine sodium is 16 and urine potassium 23. The patient was found to have 1+ proteinuria and urinalysis showed micros copic hematuria and leukocyturia. The patient is evaluated for possible urinary tract infection and urine culture showed E. coli. The patient is treated for urinary tract infection with antibiotics. The patient was found to have severe hyponatremia. On arrival to the hospital, sodium level was 111. On March 14, sodium level was 111 and on March 15, 114. On March 16, 117, this morning was 1 20. The patient has nonoliguric urine output. Sodium chloride tablets were stopped and IV fluids we re adjusted. Sodium level was checked today on 2 more occasions and is gradually improving to 121 and 122. BUN is 8 and creatinine 0.57. Uric acid was done and was 7.2. Review of Systems: The patient is encephalopathic, confused, cannot provide review of systems. Physical Examination: Lungs: Few crackles at bases. Heart: S1, S2. Abdomen: Soft, benign. Extremities: No edema. Lab Work: Sodium 122, potassium 3.8, chloride 76, CO2 40, BUN 8, creatinine 0.57, calcium 8.4, phosp horus 1.7, magnesium 1.9. Impression And Plan: Hyponatremia, hyperosmolar severe. Plan is to check TSH level, adjust hydration with IV normal saline as needed and to limit p.o. fluid intake. The patient has nonoliguric urine output. Monitor DICTATION ENDS HERE EB/MODL Voice ID: [id number] Report ID: [id number]
[2018-03-18] MEDS: LEVOTHYROXINE SOD 0.05 MG TABLET PO SCH (05:12)
[2018-03-18 05:39] LABS: Absolute Lymphocytes (CBC) 1.2 K/uL (0.7-4.9); Absolute Monocytes 0.9 K/uL (0.1-1.3); Absolute Neutrophil 4.8 K/uL (1.8-8.0); Basophils % 0.5 % (0-1.3); Eosinophils % 1.4 % (0-4.4); Hematocrit 39.7 % (36.0-45.0); Lymphocytes % 17.3 % (15.3-44.8); MPV 8.9 fL (7.6-11.3)
[2018-03-18 06:42] LABS: ALT/SGPT 36 U/L (12-78); AST/SGOT 28 U/L (15-37); Albumin 2.7 g/dL (3.4-5.0); Alkaline Phosphatase 65 U/L (45-117); BUN Blood Urea Nitrogen 9 mg/dL (7-18); Bicarbonate 39 mmol/L (21-32); Bilirubin Total 0.4 mg/dL (0.2-1.0); Glucose Level 92 mg/dL (74-106); Phosphorus 1.7 mg/dL (2.5-4.9); Potassium 3.6 mmol/L (3.5-5.1); Protein, Total 5.9 g/dL (6.4-8.2); Sodium Level 123 mmol/L (136-145)
[2018-03-18] MEDS: FUROSEMIDE 40 MG/4 ML VIAL IV SCH (07:52)
[2018-03-18] MEDS: CEFTRIAXONE/SWI 1gm 1 GM/10 ML SYR IVP SCH (07:52)
[2018-03-18] MEDS: ENOXAPARIN 40 MG/0.4 ML SQ SCH (07:52)
[2018-03-18] MEDS ORDERED: POTASSIUM PHOS IN 0.9 % NACL 15 MMOL/250 ML BAG IV ONE (08:11)
--- NOTE | 2018-03-18 12:14 | P.PN ---
Subjective Date of Service: 03/18/18 Subjective: Improving pt admitted For AMS , hyponatremia, utox +ve na improved on IVF today Na 123, will start on salt tablet and protein supplements need fluid restriction 1200ml/day Physical Examination - Vital Signs Temperature: 98.7 F Blood Pressure: 119/96 Pulse: 81 Respirations: 28 Pulse Ox (%): 97 - Physical Exam General: Oriented x3, Mild distress HEENT: Atraumatic Neck: Supple, Without JVD or thyroid abnormality Respiratory: Diminished, Inspiratory wheezes Cardiovascular: No edema, Regular rate/rhythm, Normal S1 S2 Gastrointestinal: Normal bowel sounds, Non-distended Assessment And Plan - Current Problems (Diagnosis) (1) Hyponatremia Onset Date: 03/17/18 Current Visit: Yes Status: Acute - Plan hyponatremia likely depletional with poor oral inttake and increased fluid intake Off IVF start fluid restriction start on salt tablet and protein supplement TSH and cortisol ok uric acid 7.7 urine osmol na <10 UTI e.coli Cont abx COPD cont inhalers Pt/OT
[2018-03-18] MEDS: SODIUM CHLORIDE 1 GM TAB PO SCH ×2 (12:56→17:43)
--- NOTE | 2018-03-18 13:40 | RAD REPORT ---
EXAM DESCRIPTION: Sergio Single View03/18/2018 1:23 pm CLINICAL HISTORY: Shortness of breath COMPARISON: March 16, 2018 FINDINGS: The lungs appear clear of acute infiltrate. The heart is normal size. A central venous li ne has its tip in the superior vena cava IMPRESSION: No acute abnormalities displayed
[2018-03-18] MEDS: IPRATROPIUM BROM 0.5MG/2.5ML NEB PRN (13:45)
[2018-03-18] MEDS: ALBUTEROL 2.5 MG/3 ML NEB SOL NEB PRN (13:45)
[2018-03-18 17:29] LABS: BUN Blood Urea Nitrogen 13 mg/dL (7-18); Glucose Level 98 mg/dL (74-106); Potassium 3.5 mmol/L (3.5-5.1); Sodium Level 124 mmol/L (136-145)
[2018-03-18 17:32] LABS: Bicarbonate 42 mmol/L (21-32)
[2018-03-18] MEDS ORDERED: KCL 20 MEQ/100 mL IVPB 20 MEQ/100 ML BAG IV SCH (18:00)
--- NOTE | 2018-03-18 18:32 | P.PN ---
Subjective Date of Service: 03/18/18 Subjective: Improving Patient seen and examined at bedside. at bedside. Patient more alert and awake today. Less confused, eating better. No acute events overnight. Review of Systems 10-point ROS is otherwise unremarkable Physical Examination - Vital Signs Temperature: 97.5 F Blood Pressure: 141/76 Pulse: 88 Respirations: 27 Pulse Ox (%): 93 - Physical Exam General: Alert, In no apparent distress, Oriented x2 HEENT: Atraumatic, PERRLA, EOMI Neck: Supple, JVD not distended Respiratory: Diminished Cardiovascular: Regular rate/rhythm, Normal S1 S2 Gastrointestinal: Normal bowel sounds, No tenderness Musculoskeletal: No tenderness Integumentary: No rashes Neurological: Normal speech, Normal tone, Normal affect Lymphatics: No axilla or inguinal lymphadenopathy Assessment And Plan - Plan : A 67-year-old female with 1. Acute metabolic encephalopathy secondary to hyponatremia and urinary tract infection. The patient is less agitated and less confused, however, still not oriented and not as lethargic. 2. Hyponatremia, hypovolemic. Continue gradual replacement of sodium. Avoid central pontine myelinolysis. Sodium currently at 120. Appreciate Nephrology input. We will continue to monitor sodium levels closely. 3. Acute cystitis with hematuria secondary to Escherichia coli, sensitive to Rocephin. Continue antibiotics. 4. Major depressive disorder. SSRI on hold due to hyponatremia. 5. Chronic obstructive pulmonary disease, chronic bronchitis. Continue albuterol and ipratropium treatments as needed. 6. Essential hypertension, stable. 7. Morbid obesity, BMI of 47. 8. Stage I decubitus ulcer, present on admission. Continue offloading and DuoDerm as needed. 9. Gastrointestinal and deep venous thrombosis prophylaxis with PPI and Lovenox. Plan: Continue monitor in ICU setting. Adjust IV fluids, will replace electrolytes.
[2018-03-18] MEDS: ENSURE HIGH PROTEIN 237 ML CAN PO SCH (20:44)
[2018-03-19 05:32] LABS: Albumin 2.8 g/dL (3.4-5.0); BUN Blood Urea Nitrogen 11 mg/dL (7-18); Bicarbonate 40 mmol/L (21-32); Glucose Level 100 mg/dL (74-106); Magnesium 2.1 mg/dL (1.8-2.4); Phosphorus 2.3 mg/dL (2.5-4.9); Potassium 3.3 mmol/L (3.5-5.1); Sodium Level 125 mmol/L (136-145)
[2018-03-19] MEDS: LEVOTHYROXINE SOD 0.05 MG TABLET PO SCH (06:13)
[2018-03-19] MEDS ORDERED: KCL 20 MEQ/100 mL IVPB 20 MEQ/100 ML BAG IV SCH (06:30)
[2018-03-19] MEDS: CEFTRIAXONE/SWI 1gm 1 GM/10 ML SYR IVP SCH (08:19)
[2018-03-19] MEDS: ENOXAPARIN 40 MG/0.4 ML SQ SCH (08:19)
[2018-03-19] MEDS: SODIUM CHLORIDE 1 GM TAB PO SCH ×3 (08:20→18:25)
[2018-03-19] MEDS: FUROSEMIDE 40 MG/4 ML VIAL IV SCH (08:20)
[2018-03-19] MEDS: ENSURE HIGH PROTEIN 237 ML CAN PO SCH (08:32)
[2018-03-19] MEDS ORDERED: POTASSIUM PHOS IN 0.9 % NACL 15 MMOL/250 ML BAG IV ONE (09:00)
--- NOTE | 2018-03-19 09:20 | RAD REPORT ---
EXAM DESCRIPTION: Sergio Single View03/19/2018 8:12 am CLINICAL HISTORY: Cough COMPARISON: March 18, 2018 FINDINGS: Left lateral base is hazy. The heart is normal size. PICC line has its tip in the proximal superior vena cava IMPRESSION: Left lateral base is hazy probably secondary to overlying soft tissue. As an infiltrate can also have this appearance PA and lateral chest series recommended
--- NOTE | 2018-03-19 17:14 | PN ---
Date of Progress Note: 03/19/2018 NEPHROLOGY FOLLOWUP Subjective: The patient doing slightly better, more awake. The patient off IV fluid. The patient i s on Lasix for the last 2 days. Sodium start trending up. Physical Examination: General: When I saw the patient, the patient lying in bed comfortable, not on any distress. Vital Signs: Blood pressure 134/74, pulse of 78. The patient had urine output of 3 L. Chest: Faint crackles, bilateral base. Heart: S1, S2 regular. Abdomen: Soft, nontender. Extremities: Plus edema. Laboratory Data: WBC 7, H and H 13.5/39.7, platelets 216. Sodium 125, potassium 3.3, bicarb 40, BUN 11, creatinine 0.5, calcium 8.5, phosphorus 2.3, magnesium 2.1. Current Medications: The patient on include: 1.Ceftriaxone. 2.Lovenox. 3.Ensure. 4.Lasix 40 daily. 5.Levothyroxine. 6.Zofran. 7.Potassium phosphate. 8.Salt tablet 1 tablet 3 times a day, was started yesterday. Assessment And Plan: 1.Hyponatremia secondary to syndrome of inappropriate antidiuretic hormone secretion. I am going to continue salt tablet with Lasix. We will increase the salt tablet to 2 g and we will follow up the patient. 2.Hypertension, controlled, optimal. Continue current medication. 3.Urinary tract infection, Escherichia coli. Continue current antibiotic. We will follow up. TRENT Voice ID: [id number] Report ID: [id number]
[2018-03-19 17:37] VITALS: O2SAT 100
[2018-03-19 19:47] VITALS: BP 129/66; TEMP 97.7
--- NOTE | 2018-03-19 20:49 | P.PN ---
Subjective Date of Service: 03/19/18 Subjective: Improving Patient seen and examined at bedside. No family at bedside. Patient more alert and awake today. Less confused, eating better. No acute events overnight. Review of Systems 10-point ROS is otherwise unremarkable Physical Examination - Vital Signs Temperature: 97.7 F Blood Pressure: 129/66 Pulse: 84 Respirations: 27 Pulse Ox (%): 96 - Physical Exam General: Alert, In no apparent distress, Oriented x3 HEENT: Atraumatic, PERRLA, EOMI Neck: Supple, JVD not distended Respiratory: Clear to auscultation bilaterally, Normal air movement Cardiovascular: Regular rate/rhythm, Normal S1 S2 Gastrointestinal: Normal bowel sounds, No tenderness Musculoskeletal: No tenderness Integumentary: No rashes Neurological: Normal speech, Normal tone, Normal affect Lymphatics: No axilla or inguinal lymphadenopathy Assessment And Plan - Plan : A 67-year-old female with 1. Acute metabolic encephalopathy secondary to hyponatremia and urinary tract infection. The patient is less agitated and less confused, however, still not oriented and not as lethargic. 2. Hyponatremia, hypovolemic. Continue gradual replacement of sodium with salt tablets. Avoid central pontine myelinolysis. Sodium currently at 125. Appreciate Nephrology input. We will continue to monitor sodium levels closely. 3. Acute cystitis with hematuria secondary to Escherichia coli, sensitive to Rocephin. Continue antibiotics. 4. Major depressive disorder. SSRI on hold due to hyponatremia. 5. Chronic obstructive pulmonary disease, chronic bronchitis. Continue albuterol and ipratropium treatments as needed. 6. Essential hypertension, stable. 7. Morbid obesity, BMI of 47. 8. Stage I decubitus ulcer, present on admission. Continue offloading and DuoDerm as needed. 9. Gastrointestinal and deep venous thrombosis prophylaxis with PPI and Lovenox. Plan: Continue monitor in ICU setting. Adjust IV fluids, will replace electrolytes.
--- NOTE | 2018-03-20 07:40 | P.DS ---
Discharge Date: 03/19/18 Disposition: AMA-LEFT AGAINST MEDICAL ADVIC Discharge Condition: SERIOUS Consultations: Nephrology Brief History of Present Illness: Patient is a 67-year-old female who was admitted with severe hyponatremia. 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 This may have been from her antidepressant. Patient was treated to correct her sodium level. Patient was also alkalotic but an ABG was never performed. Patient also with taking pain medicine chronically. This was not restarted. Hospital Course: Patient and her were upset because of numerous concerns. They decided to leave against medical advice. We removed the Lo catheter and PICC line. Patient left AMA. Vital Signs/Physical Exam: Temp Pulse Resp BP Pulse Ox 97.7 F 84 27 H 129/66 96 03/19/18 20:49 03/19/18 20:49 03/19/18 20:49 03/19/18 20:49 03/19/18 20:49 Laboratory Data at Discharge: WBC 7.0 K/uL (4.3-10.9) 03/18/18 05:07 Hgb 13.5 g/dL (12.0-15.0) 03/18/18 05:07 Hct 39.7 % (36.0-45.0) 03/18/18 05:07 Plt Count 216 K/uL (152-406) D 03/18/18 05:07 PT 10.8 SECONDS (9.5-12.5) 03/14/18 12:50 INR 0.92 03/14/18 12:50 Sodium 125 mmol/L (136-145) L 03/19/18 04:45 Potassium 4.0 mmol/L (3.5-5.1) 03/19/18 15:00 BUN 11 mg/dL (7-18) 03/19/18 04:45 Creatinine 0.54 mg/dL (0.55-1.3) L 03/19/18 04:45 Glucose 100 mg/dL (74-106) 03/19/18 04:45 Uric Acid 7.2 mg/dL (2.6-6.0) H 03/15/18 03:56 Phosphorus 2.3 mg/dL (2.5-4.9) L 03/19/18 04:45 Magnesium 2.1 mg/dL (1.8-2.4) 03/19/18 04:45 Total Bilirubin 0.4 mg/dL (0.2-1.0) 03/18/18 05:07 AST 28 U/L (15-37) 03/18/18 05:07 ALT 36 U/L (12-78) 03/18/18 05:07 Alkaline Phosphatase 65 U/L (45-117) 03/18/18 05:07 Home Medications: Duloxetine HCl [Cymbalta] 1 tab PO DAILY 03/15/18 Hydrocodone Bit/Acetaminophen [[place] 7.5-325 Tablet] 1 each PO TID 03/15/18 Levothyroxine Sodium 50 mcg PO DAILY 03/15/18 Lidocaine 5% Patch [Lidoderm 5% Patch*] 1 patch TOP DAILY 03/15/18 Lisinopril 10 mg PO DAILY 03/15/18 Tramadol HCl [Ultram] 50 mg PO DAILY 03/15/18 Patient Discharge Instructions: Advice patient to return to the hospital if she continues to feel worse. Was unable to convince her to stay. Time spent managing pt's care (in minutes): 40
== END 2018-03-19 20:35 | disposition left against medical advice (07) | DRG 643 ==
LOC: ER 12:08 → ERHOLD 15:50 → 3RD-ICU 18:22
PROVIDERS: ADMIT Family Medicine; ATTEND Family Medicine
DX: E22.2 Syndrome of inappropriate secretion of antidiuretic hormone (principal); G93.41 Metabolic encephalopathy; N30.01 Acute cystitis with hematuria; Z68.42 Body mass index [BMI] 45.0-49.9, adult; E87.3 Alkalosis; E87.0 Hyperosmolality and hypernatremia; F32.9 Major depressive disorder, single episode, unspecified; J44.9 Chronic obstructive pulmonary disease, unspecified; I10 Essential (primary) hypertension; L89.151 Pressure ulcer of sacral region, stage 1; E66.01 Morbid (severe) obesity due to excess calories; E86.1 Hypovolemia; B96.20 Unspecified Escherichia coli [E. coli] as the cause of diseases classified elsewhere; E87.6 Hypokalemia; E83.39 Other disorders of phosphorus metabolism; E83.42 Hypomagnesemia; Z16.23 Resistance to quinolones and fluoroquinolones
CPT/HCPCS: 36415; 51702; 71045; 80048; 80053; 80069; 80076; 80307; 81003; 81015; 82533; 83735; 83880; 83930; 83935; 84132; 84300; 84443; 84484; 84550; 85025; 85610; 87077; 87086; 87088; 87186; 87493; 93005; 94640; 97116; 97163; 97530; 99285; J0696; J1650; J1940; J7030

== ENCOUNTER 2019-12-06 20:47 | Inpatient (IN) | payer OTHER ==
[2019-12-06 21:05] LABS: Absolute Lymphocytes (CBC) 2.3 K/uL (0.7-4.9); Basophils % 0.7 % (0-1.3); Hematocrit 45.6 % (36.0-45.0); Lymphocytes % 25.5 % (15.3-44.8); MPV 9.1 fL (7.6-11.3); RBC Red Blood Cell Count 4.66 M/uL (3.86-4.86)
[2019-12-06 21:09] LABS: Protime INR 0.97
[2019-12-06 21:17] LABS: Potassium 4.3 mmol/L (3.5-5.1)
--- NOTE | 2019-12-06 21:18 | RAD REPORT ---
EXAM DESCRIPTION: CT - Ct Stroke Brain Wo Cont - 12/06/2019 9:07 pm CLINICAL HISTORY: Confusion/alteration of awareness COMPARISON: none TECHNIQUE: Computed axial tomography of the head was obtained. All CT scans are performed using dose optimization technique as appropriate and may include automated exposure control or mA/KV adjustment according to patient size. FINDINGS: An intracranial bleed is not seen . The ventricles are normal in caliber. No extra-axial fluid collection is noted. Small low-density area right basal ganglia Fluid within the sinuses/ mastoids is not seen. IMPRESSION: Small low-density area right basal ganglia probably lacunar infarct. The age is indeterm inate. If clinically indicated further evaluation with MRI would be helpful Sudhakar of the emergency room was notified at 913 PM December 06, 2019
[2019-12-06 22:10] LABS: Urine Blood NEGATIVE (NEG); Urine Glucose NEGATIVE (NEG); Urine Protein NEGATIVE (NEG); Urine Specific Gravity 1.025 (1.005-1.030)
--- NOTE | 2019-12-06 22:15 | ER ---
Nurse's Notes [facility] Name: Earnest Baker Age: 69 yrs Sex: Female : 1950 Arrival Date: 12/06/2019 Time: 20:53 Bed 3 Private MD: Diagnosis: Cerebral Vascular Accident Presentation: 12/05 20:43 Chief complaint: EMS states: Called for patient for confusion and lift assist; Patient lp1 noted to be on floor on arrival of EMS, states patient had fall out of bed while he was at grocery store today; Patient noted to have slurred speech and confused. 20:43 Coronavirus screen: Unable to obtain; patient confused. Ebola Screen: No symptoms or lp1 risks identified at this time. Initial Sepsis Screen: Does the patient meet any 2 criteria? No. Patient's initial sepsis screen is negative. Does the patient have a suspected source of infection? No. Patient's initial sepsis screen is negative. Risk Assessment: Do you want to hurt yourself or someone else? Patient reports no desire to harm self or others. 20:43 Method Of Arrival: EMS: [facility] lp1 21:00 Onset of symptoms was December 06, 2019. lp1 21:00 Acuity: AMANDA 2 lp1 Historical: - Allergies: 21:16 No Known Allergies; lp1 - Home Meds: 21:16 lisinopril 10 mg Oral tab [Active]; lp1 - PMHx: 21:16 COPD; Hypertension; lp1 - PSHx: 21:16 Unable to obtain; lp1 - Immunization history:: Adult Immunizations unknown. - Social history:: Smoking status: unknown. Screenin:00 Patient has been NPO before screening. The patient is alert, able to follow commands. lp1 The patient exhibits slurred or garbled speech. patient appears to speak more clearly when repeated The patient does not exhibit difficulty understanding words. The patient is able to swallow own secretions with no drooling or need for suction. Patient tolerated one teaspoon of water. No drooling, immediate coughing, gurgling, or clearing of the throat was noted. The patient tolerated 90mL of water. No drooling, immediate coughing, gurgling, or clearing of the throat was noted. The patient passed the bedside swallow screening. Oral medications may be given as ordered. Contact Physician for further diet orders. Provider notified of bedside swallow screening results: Shaggy Lazo MD. 21:48 Abuse screen: Denies threats or abuse. Denies injuries from another. Nutritional lp1 screening: No deficits noted. Tuberculosis screening: No symptoms or risk factors identified. Fall Risk Total Garcia Fall Scale indicates High Risk Score (45 or more points). Fall prevention measures have been instituted. Side Rails Up X 2 Placed Close to Nursing Station Frequent Obs/Assessments Occuring As available patient and family educated on Fall Prevention Program and Strategies. Assessment: 21:00 General: Appears in no apparent distress. Behavior is restless. Pain: Denies pain. lp1 Neuro: Level of Consciousness is awake, obeys commands, confused, Oriented to person, Pc Maintenance Technician are equal bilaterally Moves all extremities. Speech is slurred, Facial droop on right, Pupils are PERRLA, Intact. Cardiovascular: Patient's skin is warm and dry. Respiratory: Airway is patent Trachea midline Respiratory effort is even, Respiratory pattern is symmetrical, Breath sounds with wheezes bilaterally. on expiration noted. GI: Abdomen is obese. : No signs and/or symptoms were reported regarding the genitourinary system. EENT: No signs and/or symptoms were reported regarding the EENT system. Derm: Skin is intact, Skin is dry, Skin is normal. Musculoskeletal: No deficits noted. 21:15 Reassessment: per small Lucanar infarct in the Right Basal Ganglia, cannot sg determine age. 21:30 Reassessment: Called , Austin Baker [phone]; States patient became lp1 confused yesterday evening about 1900, slurred speech began about 0300 this morning; Patient has been on floor since 1630 today, unable to lift her; Dr. Lazo spoke with Mr. Baker at this time for patient events. 21:40 Reassessment: Patient 88% on RA while sleeping; O2 via NC place at 2L. lp1 22:00 Reassessment: Patient appears restless in stretcher, states "Get me out of here, I want lp1 to go home"; Reoriented to place and patient continues to move around in bed; repositioned self. 23:00 Reassessment: Patient resting, eyes closed, respirations even at this time. lp1 23:50 Reassessment: Nelson chamberlain transported up to floor with patient. lp1 Vital Signs: 21:00 BP 150 / 85; Pulse 100; Resp 20; Temp 98.1(TE); Pulse Ox 94% on R/A; Weight 136.08 kg; lp1 21:30 BP 150 / 85; Pulse 90; Resp 19; Pulse Ox 94% on 2 lpm NC; lp1 22:30 BP 141 / 73; Pulse 89; Resp 22; Pulse Ox 94% on 2 lpm NC; lp1 23:00 BP 146 / 78; Pulse 86; Resp 21; Pulse Ox 94% on 2 lpm NC; lp1 23:24 BP 157 / 81; Pulse 82; Resp 20; Pulse Ox 95% on 50% Venturi mask; lp1 NIH Stroke Scale Scores: 21:00 NIHSS Score: 9 lp1 21:00 NIHSS Score: 9 7 ED Course: 20:45 Inserted saline lock: 20 gauge in right forearm, using aseptic technique. Blood lp1 collected. By MANAV Hernández. 20:[address] via stretcher. lp1 20:53 Patient arrived in ED. rr5 20:59 CT Stroke Brain w/o Contrast In Process Unspecified. EDMS 21:00 Patient has correct armband on for positive identification. Bed in low position. Side lp1 rails up X2. residential monitor on. Pulse ox on. NIBP on. 21:00 Arm band placed on left wrist. lp1 21:05 Lorraine Rose, MANAV is Primary Nurse. lp1 21:20 Stroke CXR 1 View In Process Unspecified. EDMS 21:25 Shaggy Lazo MD is Attending Physician. mh7 21:46 Triage completed. lp1 22:00 Straight cath inserted, using sterile technique, 16 Fr. Specimen obtained. lp1 22:08 UDS Sent. 4 22:14 Edgar Galvez MD is Hospitalizing Provider. mh7 23:15 covid. rr5 23:24 No provider procedures requiring assistance completed. Patient admitted, IV remains in lp1 place. Administered Medications: 22:20 Drug: Aspirin Chewable Tablet 324 mg Route: PO; lp1 23:41 Follow up: Response: No adverse reaction lp1 Outcome: 22:14 Decision to Hospitalize by Provider. mh7 23:29 Admitted to Med/surg via stretcher, room 201, with oxygen, with chart, Report called to dax Cronin RN 23:29 Condition: stable 23:29 Instructed on the need for admit, , Austin, aware of patient admission; states will come in the morning and bring patient's home medications 23:50 Patient left the ED. lp1 NIH Stroke Scale - NIH Stroke Score Date: 12/06/2019 Time: 21:00 Total Score = 9 1a. Level of Consciousness (LOC) - 1(Not Alert) 1b. Level of Consciousness (LOC) (Year \\T\\ Age) - 1(One) 1c. LOC Commands (Open \\T\\ Closes Eyes/Heel Burnisher) - 0(Both) 2. Best Gaze (Lateral Gaze Paresis) - 0(Normal) 3. Visual Field Loss - 0(No visual loss) 4. Facial Palsy - 1(Minor Paralysis) 5a. Left Arm: Motor (10-second hold) - 0(No drift) 5b. Right Arm: Motor (10-second hold) - 0(No drift) 6a. Left Leg: Motor (5-second hold - always test supine) - 1(Drift) 6b. Right Leg: Motor (5-second hold - always test supine) - 1(Drift) 7. Limb Ataxia (finger/nose \\T\\ heel/david - test with eyes open) - 0(Absent) 8. Sensory Loss (pinprick arms/legs/face) - 0(Normal) 9. Best Language: Aphasia (description/naming/reading) - 2(Severe aphasia) 10. Dysarthria (speech clarity - read or repeat words) - 2(Severe) 11. Extinction and Inattention (visual/tactile/auditory/spatial/personal) - 0(No abnormality) Initials: lp1 NIH Stroke Scale - NIH Stroke Score Date: 12/06/2019 Time: 21:00 Total Score = 9 1a. Level of Consciousness (LOC) - 1(Not Alert) 1b. Level of Consciousness (LOC) (Year \\T\\ Age) - 1(One) 1c. LOC Commands (Open \\T\\ Closes Eyes/Heel Burnisher) - 0(Both) 2. Best Gaze (Lateral Gaze Paresis) - 0(Normal) 3. Visual Field Loss - 0(No visual loss) 4. Facial Palsy - 1(Minor Paralysis) 5a. Left Arm: Motor (10-second hold) - 0(No drift) 5b. Right Arm: Motor (10-second hold) - 0(No drift) 6a. Left Leg: Motor (5-second hold - always test supine) - 1(Drift) 6b. Right Leg: Motor (5-second hold - always test supine) - 1(Drift) 7. Limb Ataxia (finger/nose \\T\\ heel/david - test with eyes open) - 0(Absent) 8. Sensory Loss (pinprick arms/legs/face) - 0(Normal) 9. Best Language: Aphasia (description/naming/reading) - 2(Severe aphasia) 10. Dysarthria (speech clarity - read or repeat words) - 2(Severe) 11. Extinction and Inattention (visual/tactile/auditory/spatial/personal) - 0(No abnormality) Initials: 7 Signatures: Dispatcher [employer] Sudhakar Pozo, RN RN sg Lorraine Rose RN RN lp1 Edgar Coronado RN RN rr5 Galen Luis 4 Shaggy Lazo MD MD 7
--- NOTE | 2019-12-06 22:16 | EDPHYS ---
Physician Documentation [facility] Name: Earnest Baker Age: 69 yrs Sex: Female : 1950 Arrival Date: 12/06/2019 Time: 20:53 Bed 3 Private MD: ED Physician Shaggy Lazo HPI: 12/05 22:57 This 69 yrs old Female presents to ER via EMS with complaints of mh7 Confusion.Weakness. 22:57 The patient's problem is reported as altered mental status, confused, weakness, that is mh7 generalized. Onset: The symptoms/episode began/occurred yesterday, at 19:00. Duration: The episode is continuous. Context: the episode(s) was witnessed, by family, , symptoms became apparent on December 05, 2019, at 19:00. occurred at home, occurred while the patient was lying down, Possible contributing factors include: Patient is a know diabetic. The symptoms are alleviated by nothing. The symptoms are aggravated by nothing. Associated signs and symptoms: Pertinent positives: confusion, weakness, Slurred speech. Severity of symptoms: At their worst the symptoms were moderate this morning, in the emergency department the symptoms are unchanged. Patient's states that she started to have confusion last night around 1900. She then started to have weakness this morning around 2:30 am and slurred speech around 3:00 am. He went to the store around 4:00 PM today she was laying in bed. he returned around 4:30 PM and she was on the floor next to the bed.. Historical: - Allergies: 21:16 No Known Allergies; lp1 - Home Meds: 21:16 lisinopril 10 mg Oral tab [Active]; lp1 - PMHx: 21:16 COPD; Hypertension; lp1 - PSHx: 21:16 Unable to obtain; lp1 - Immunization history:: Adult Immunizations unknown. - Social history:: Smoking status: unknown. ROS: 23:04 Unable to obtain ROS due to altered mental status, patient's speech is incomprehensible.mh7 Exam: 21:00 Musculoskeletal/extremity: ROM: limited active range of motion, in the right leg and mh7 left leg, Circulation is intact in all extremities. Pulses: are normal with no appreciated deficits, Perfusion: the patient is normally perfused throughout, Perfusion: the extremity is normally perfused throughout, Sensation intact. 21:00 Neuro: Orientation: to person, Mentation: confused, Memory: immediate memory is impaired, remote memory is impaired, recent memory is impaired, Cranial nerves: facial droop noted on right, Cerebellar function: the patient is unable to track right heel to left david, the patient is unable to track left heel to right david, Motor: strength is 5/5 in the right arm and left arm, strength is 4/5 in the right leg and left leg, Sensation: is normal, Gait: not tested. Deep tendon reflexes are normal, Babinski testing is normal, seizure activity, is not displayed by the patient, Abnormal movements: there are no abnormal movements. 23:04 Head/Face: Normocephalic, atraumatic. Eyes: Pupils equal round and reactive to light, mh7 extra-ocular motions intact. Lids and lashes normal. Conjunctiva and sclera are non-icteric and not injected. Cornea within normal limits. Periorbital areas with no swelling, redness, or edema. Neck: Trachea midline, no thyromegaly or masses palpated, and no cervical lymphadenopathy. Supple, full range of motion without nuchal rigidity, or vertebral point tenderness. No Meningismus. Chest/axilla: Normal chest wall appearance and motion. Nontender with no deformity. No lesions are appreciated. Cardiovascular: Regular rate and rhythm with a normal S1 and S2. No gallops, murmurs, or rubs. Normal PMI, no JVD. No pulse deficits. 23:04 Abdomen/GI: Soft, non-tender, with normal bowel sounds. No distension or tympany. No guarding or rebound. No evidence of tenderness throughout. Back: No spinal tenderness. No costovertebral tenderness. Full range of motion. Skin: Warm, dry with normal turgor. Normal color with no rashes, no lesions, and no evidence of cellulitis. 23:04 Constitutional: The patient appears in no acute distress, alert, awake, slurred speech 23:04 Respiratory: the patient does not display signs of respiratory distress, Respirations: normal, Breath sounds: rhonchi, that are mild, are scattered, Respiratory rate: 20 12/06 05:46 Musculoskeletal/extremity: ROM: mh7 05:55 Radiologist reports: small low density area right basal ganglia probable lacunar mh7 infarct indeterminate age Vital Signs: 12/05 21:00 BP 150 / 85; Pulse 100; Resp 20; Temp 98.1(TE); Pulse Ox 94% on R/A; Weight 136.08 kg; lp1 21:30 BP 150 / 85; Pulse 90; Resp 19; Pulse Ox 94% on 2 lpm NC; lp1 22:30 BP 141 / 73; Pulse 89; Resp 22; Pulse Ox 94% on 2 lpm NC; lp1 23:00 BP 146 / 78; Pulse 86; Resp 21; Pulse Ox 94% on 2 lpm NC; lp1 23:24 BP 157 / 81; Pulse 82; Resp 20; Pulse Ox 95% on 50% Venturi mask; lp1 NIH Stroke Scale Scores: 21:00 NIHSS Score: 9 lp1 21:00 NIHSS Score: 9 [facility] MDM: 21:26 Patient medically screened. [facility] 22:03 Physician consultation: Samuel Palomo MD was contacted at 21:58, regarding patient's mh7 condition, and will see patient in inpatient room. 22:12 Differential diagnosis: CVA, TIA, Dementia, Alzheimer disease, metabolic disorder, drug mh7 effects. Data reviewed: vital signs, nurses notes, EMS record, lab test result(s), cardiac enzymes, CBC, drug level(s), electrolytes, urinalysis, EKG, radiologic studies, CT scan, plain films. Data interpreted: Pulse oximetry: on 2L(s) per nasal canula, is 94 %. Interpretation: acceptable. Counseling: I had a detailed discussion with the patient and/or guardian regarding: the historical points, exam findings, and any diagnostic results supporting the discharge/admit diagnosis, the presence of at least one elevated blood pressure reading (>120/80) during this emergency department visit, lab results, radiology results, the need for further work-up and treatment in the hospital. Response to treatment: the patient's symptoms have mildly improved after treatment. 12/05 20:53 Order name: Basic Metabolic Panel; Complete Time: 21:25 rr5 12/05 20:53 Order name: CBC with Diff; Complete Time: 21:25 rr5 12/05 20:53 Order name: Protime (+inr); Complete Time: 21:25 rr5 12/05 20:53 Order name: Ptt, Activated; Complete Time: 21:25 rr5 12/05 21:28 Order name: UDS; Complete Time: 22:48 mh7 12/05 21:28 Order name: Troponin (emerg Dept Use Only); Complete Time: 21:58 mh7 12/05 20:53 Order name: CT Stroke Brain w/o Contrast; Complete Time: 21:25 rr5 12/05 20:53 Order name: Stroke CXR 1 View rr5 12/05 21:42 Order name: CPK; Complete Time: 22:06 mh7 12/05 22:08 Order name: Urine Dipstick--Ancillary (enter results) tt3 12/05 22:09 Order name: Urine Dipstick-Ancillary; Complete Time: 22:21 EDMS 12/05 22:45 Order name: FSBG - FOR PT WITH NO ID; Complete Time: 05:54 lp1 12/05 22:54 Order name: COVID-19 rr5 12/05 20:53 Order name: EKG; Complete Time: 20:54 rr5 12/05 20:53 Order name: Accucheck; Complete Time: 21:51 rr5 12/05 20:53 Order name: Cardiac monitoring; Complete Time: 21:21 rr5 12/05 20:53 Order name: EKG - Nurse/Tech; Complete Time: 21:21 rr5 12/05 20:53 Order name: IV Saline Lock; Complete Time: 21:51 rr5 12/05 20:53 Order name: Labs collected and sent; Complete Time: 21:51 rr5 12/05 20:53 Order name: NPO; Complete Time: 21:51 5 12/05 20:53 Order name: O2 Per Protocol; Complete Time: 21:51 rr5 12/05 20:53 Order name: O2 Sat Monitoring; Complete Time: 21:51 rr5 12/05 20:53 Order name: Stroke Swallow Screen; Complete Time: 21:51 5 12/05 21:28 Order name: Urine Dipstick-Ancillary (obtain specimen); Complete Time: 22:07 mh7 Administered Medications: 22:20 Drug: Aspirin Chewable Tablet 324 mg Route: PO; lp1 23:41 Follow up: Response: No adverse reaction lp1 Disposition: 12/06/19 22:14 Hospitalization ordered by Edgar Galvez for Inpatient Admission. Preliminary diagnosis is Cerebral Vascular Accident. - Bed requested for Telemetry/MedSurg (Inpatient). - Status is Inpatient Admission. lp1 - Condition is Stable. - Problem is new. - Symptoms have improved. NIH Stroke Scale - NIH Stroke Score Date: 12/06/2019 Time: 21:00 Total Score = 9 1a. Level of Consciousness (LOC) - 1(Not Alert) 1b. Level of Consciousness (LOC) (Year \T\ Age) - 1(One) 1c. LOC Commands (Open \T\ Closes Eyes/Equal Employment Opportunity Officer) - 0(Both) 2. Best Gaze (Lateral Gaze Paresis) - 0(Normal) 3. Visual Field Loss - 0(No visual loss) 4. Facial Palsy - 1(Minor Paralysis) 5a. Left Arm: Motor (10-second hold) - 0(No drift) 5b. Right Arm: Motor (10-second hold) - 0(No drift) 6a. Left Leg: Motor (5-second hold - always test supine) - 1(Drift) 6b. Right Leg: Motor (5-second hold - always test supine) - 1(Drift) 7. Limb Ataxia (finger/nose \T\ heel/david - test with eyes open) - 0(Absent) 8. Sensory Loss (pinprick arms/legs/face) - 0(Normal) 9. Best Language: Aphasia (description/naming/reading) - 2(Severe aphasia) 10. Dysarthria (speech clarity - read or repeat words) - 2(Severe) 11. Extinction and Inattention (visual/tactile/auditory/spatial/personal) - 0(No abnormality) Initials: lp1 NIH Stroke Scale - NIH Stroke Score Date: 12/06/2019 Time: 21:00 Total Score = 9 1a. Level of Consciousness (LOC) - 1(Not Alert) 1b. Level of Consciousness (LOC) (Year \T\ Age) - 1(One) 1c. LOC Commands (Open \T\ Closes Eyes/Equal Employment Opportunity Officer) - 0(Both) 2. Best Gaze (Lateral Gaze Paresis) - 0(Normal) 3. Visual Field Loss - 0(No visual loss) 4. Facial Palsy - 1(Minor Paralysis) 5a. Left Arm: Motor (10-second hold) - 0(No drift) 5b. Right Arm: Motor (10-second hold) - 0(No drift) 6a. Left Leg: Motor (5-second hold - always test supine) - 1(Drift) 6b. Right Leg: Motor (5-second hold - always test supine) - 1(Drift) 7. Limb Ataxia (finger/nose \T\ heel/david - test with eyes open) - 0(Absent) 8. Sensory Loss (pinprick arms/legs/face) - 0(Normal) 9. Best Language: Aphasia (description/naming/reading) - 2(Severe aphasia) 10. Dysarthria (speech clarity - read or repeat words) - 2(Severe) 11. Extinction and Inattention (visual/tactile/auditory/spatial/personal) - 0(No abnormality) Initials: [facility] Signatures: Dispatcher [employer] EDMS Lorraine Rose, RN RN lp1 Juan Stearns, DUE DILIGENCE COORDINATOR-C DUE DILIGENCE COORDINATOR-Cla1 Marcy Pratt, RN RN Edgar Quiñones, MANAV RN rr5 Shaggy Lazo MD MD 7 Corrections: (The following items were deleted from the chart) 23:06 22:14 Hospitalization Ordered by Edgar Galvez MD for Inpatient Admission. Preliminary diagnosis is Cerebral Vascular Accident. Bed requested for Telemetry/MedSurg (Inpatient). Status is Inpatient Admission. Condition is Stable. Problem is new. Symptoms have improved. [facility] 23:50 23:06 12/06/2019 22:14 Hospitalization Ordered by Edgar Galvez MD for lp1 Inpatient Admission. Preliminary diagnosis is Cerebral Vascular Accident. Bed requested for Telemetry/MedSurg (Inpatient). Status is Inpatient Admission. Condition is Stable. Problem is new. Symptoms have improved.
[2019-12-06 22:28] LABS: Barbiturates NEGATIVE (NEGATIVE); Benzodiazepines POSITIVE (NEGATIVE); Cocaine NEGATIVE (NEGATIVE); METHAMPHETAM NEGATIVE (NEGATIVE); Methadone NEGATIVE (NEGATIVE); Opiates POSITIVE (NEGATIVE); Phencyclidine NEGATIVE (NEGATIVE); THC Cannibis NEGATIVE (NEGATIVE)
[2019-12-06] MEDS ORDERED: ASPIRIN 81 MG CHEWABLE TABLET ONE (22:30)
--- NOTE | 2019-12-06 23:33 | P.HP ---
Certification for Inpatient Patient admitted to: Inpatient With expected LOS: >2 Midnights Patient will require the following post-hospital care: None Practitioner: I am a practitioner with admitting privileges, knowledge of patient current condition, hospital course, and medical plan of care. Services: Services provided to patient in accordance with Admission requirements found in Title 42 Section 412.3 of the Code of Federal Regulations <Juan Stearns - Last Filed: 12/06/19 23:21> Patient History Date of Service: 12/06/19 Primary Care Provider: Dr. Barrera Reason for admission: Ischemic CVA History of Present Illness: 69-year-old female with history of COPD, hypertension, hypothyroidism, major depressive disorder presented to the emergency department for slurred speech, altered mental status. Has been [place] reports that patient became confused yesterday evening around 1900 with slurred speech beginning at 3:00 a.m. this morning. Patient went to the grocery store and when he returned he found her to be laying next to the bed on the floor confused. EMS was called for that this cyst but noticed the symptoms of stroke with right- sided facial droop, slurred speech and transported to the hospital for further evaluation. Upon arrival to the emergency department patient was drowsy, oriented x1 with baseline mental status reported to be oriented x4. Has been had left the time I got to the room to examine the patient, attempted to call him but he did not answer, previous history obtained from previous medical records and ER nurses/chart. Patient reported to be baseline alert, oriented x4. Patient reportedly refused to come to hospital when she developed symptoms earlier this morning and last night. Workup in the emergency department revealed small low density area in the right basal ganglia, probably representing a lacunar infarct of indeterminate age. Recommend MRI for further evaluation. Patient very drowsy at time of exam but does appear to have some right-sided facial droop. Patient is also positive for benzodiazepines and opioids. From history patient does take Monroe at home for chronic pain. Patient will be admitted for further evaluation and management. - Past Medical/Surgical History Diabetic: No -: COPD -: Hypertension -: Chronic pain -: Major depressive disorder Past Surgical History: Unable to obtain Psychosocial/ Personal History: Unable to obtain at this time - Family History Family History: Reviewed- Non-Contributory - Social History Smoking Status: Unknown if ever smoked Alcohol use: Yes CD- Drugs: No Caffeine use: Yes Place of Residence: Home <Juan Stearns - Last Filed: 12/06/19 23:21> Date of Service: 12/09/19 <Edgar Galvez - Last Filed: 12/09/19 13:21> Allergies No Known Allergies Allergy (Verified 12/07/19 09:23) Home Medications: Hydrocodone Bit/Acetaminophen [Monroe 7.5-325 Tablet] 1 each PO TID 03/15/18 Levothyroxine Sodium 50 mcg PO DAILY 03/15/18 Lidocaine 4% Patch [Lidoderm 5% Patch*] 1 patch TOP DAILY PRN 03/15/18 Duloxetine HCl [Cymbalta] 60 mg PO DAILY 12/07/19 Montelukast Sodium [Singulair] 10 mg PO DAILY 12/07/19 Atorvastatin Calcium [Lipitor] 40 mg PO BEDTIME #30 tab 12/08/19 lisinopriL [Prinivil*] 10 mg PO DAILY #30 tab 12/08/19 Review of Systems is unable to be obtained <Juan Stearns - Last Filed: 12/06/19 23:21> Physical Examination - Physical Exam General: Other (Obtunded but arousable to verbal stimuli) HEENT: Atraumatic, Normocephalic, PERRLA, Mucous membr. moist/pink Neck: Supple Respiratory: Diminished (Bilaterally) Cardiovascular: No edema, Regular rate/rhythm, Normal S1 S2 Capillary refill: <2 Seconds Gastrointestinal: Normal bowel sounds, No tenderness Musculoskeletal: No contractures, No erythema, No tenderness Integumentary: No significant lesion, No tenderness/swelling Neurological: Other (Apparent right-sided facial droop, it exam extremely limi nick due to patient's decreased level of consciousness.), Abnormal speech (Speech is slurred) - Studies Laboratory Data (last 24 hrs) 12/06/19 20:50: PT 11.5, INR 0.97, APTT 39.6 H 12/06/19 20:50: WBC 9.0, Hgb 15.5 H, Hct 45.6 H, Plt Count 255 12/06/19 20:50: Sodium 137, Potassium 4.3, BUN 15, Creatinine 0.96, Glucose 103 <Juan Stearns - Last Filed: 12/06/19 23:21> Assessment and Plan - Plan Assessment Ischemic CVA COPD Hypertension Hypothyroidism Hyperlipidemia Suspected ANNA Plan Ischemic CVA: Aspirin, Plavix, folic acid, statin, Alber. Neurology consult in place, ED provider did speak with neurology. Patient outside the window for t- PA. Speech, physical therapy consult in place. Echo, carotid ultrasound, MRI stroke protocol ordered. Continue with fall and aspiration precautions. DVT prophylaxis Lovenox 40 mg subcutaneous once daily. Appreciate further input from neurology. COPD: Patient does not appear to take any daily medications or inhalers related to COPD. Will provide albuterol inhaler for p.r.n. use. Hypertension: Continue lisinopril 10 mg p.o. daily. Adjust as needed. Hypothyroidism: Continue levothyroxine 50 mcg p.o. daily, obtain thyroid panel morning labs. Hyperlipidemia: Initiate statin therapy. Check lipid panel with morning labs. Suspected ANNA: After examining patient she did fall asleep, patient with some snoring and saturations dropping in the high 80s. Suspect obstructive sleep apnea due to body habitus, will need further workup likely on outpatient basis. Discharge Plan: Home Plan to discharge in: Greater than 2 days - Advance Directives Does patient have a Living Will: No Does patient have a Durable POA for Healthcare: No - Code Status/Comfort Care Code Status Assessed: Yes (Patient is full code) Critical Care: No Time Spent Managing Pts Care (In Minutes): 55 <Juan Stearns - Last Filed: 12/06/19 23:21> Physician Review Additional Text: Plan of care discussed with Juan Stearns, and I agree with the management plan as noted above. <Edgar Galvez - Last Filed: 12/09/19 13:21>
[2019-12-06] MEDS ORDERED: LORazepam 2 MG/ML VIAL IV PRN (23:52)
[2019-12-06] MEDS ORDERED: ACETAMINOPHEN 500 MG TAB PO PRN (23:52)
[2019-12-06] MEDS ORDERED: ONDANSETRON 4 MG/2 ML VIAL IV PRN (23:52)
[2019-12-07 01:28] VITALS: BMI 45.0
[2019-12-07] MEDS: NA CHLORIDE 0.9% 1,000 ML IV SCH ×3 (01:38→19:52)
[2019-12-07 03:43] LABS: Creatine Phosphokinase 179 U/L (26-192); Troponin I < 0.02 ng/mL (0.0-0.045)
[2019-12-07 03:51] LABS: Absolute Lymphocytes (CBC) 1.8 K/uL (0.7-4.9); Hematocrit 44.7 % (36.0-45.0); Lymphocytes % 23.5 % (15.3-44.8); MPV 9.1 fL (7.6-11.3); RBC Red Blood Cell Count 4.56 M/uL (3.86-4.86)
[2019-12-07 03:52] LABS: Thyroid Stimulating Hormone 1.31 uIU/mL (0.360-3.740)
[2019-12-07] MEDS: LEVOTHYROXINE SOD 0.05 MG TABLET PO SCH (05:45)
--- NOTE | 2019-12-07 07:49 | RAD REPORT ---
EXAM DESCRIPTION: RAD - Chest Single View - 12/06/2019 9:20 pm CLINICAL HISTORY: stroke, Stroke protocol COMPARISON: March 2018 TECHNIQUE: AP portable chest image was obtained 12/06/2019 9:20 pm . FINDINGS: Lung volumes are low and respiratory motion is present. No infiltrate, edema or acute lung parenchymal finding. Heart and vasculature are normal. No measurable pleural effusion and no pneumot horax. No acute bony abnormality seen. No acute aortic findings suspected. IMPRESSION: No acute cardiopulmonary process.
[2019-12-07] MEDS: ENOXAPARIN 40 MG/0.4 ML SQ SCH (09:31)
[2019-12-07] MEDS: CLOPIDOGREL 75 MG TABLET PO SCH ×2 (09:32→10:30)
[2019-12-07] MEDS: FOLIC ACID 1 MG TABLET PO SCH ×2 (09:32→10:29)
[2019-12-07] MEDS: lisinopriL 10 MG TAB PO SCH ×2 (09:32→10:29)
--- NOTE | 2019-12-07 09:38 | P.PN ---
Subjective Date of Service: 12/07/19 Primary Care Provider: Dr. Barrera Chief Complaint: Ischemic CVA Subjective: No new changes (patient seems slightly more easily aroused per report. No acute events since admission) Review of Systems is unable to be obtained Physical Examination - Vital Signs Temperature: 97.2 F Blood Pressure: 165/72 Pulse: 78 Respirations: 32 Pulse Ox (%): 98 - Physical Exam General: Alert, Obese, Other (arousable to loud verbal stimuli for short periods of time ) Neck: Supple, No LAD Respiratory: Diminished (At bases bilaterally. Difficult exam due to patient's sleeping and snoring) Cardiovascular: No edema, Regular rate/rhythm, Normal S1 S2 Gastrointestinal: Soft and benign, Non-distended, No tenderness Integumentary: No rashes Neurological: Sensation intact (Difficult to fully ascertain the, however reported similar sensation on bilateral face, upper extremities, lower extremities. Initially did not feel/reacts to pain in bilateral feet, however she did a few seconds later on retest.), Other (Unable to fully evaluate cranial nerves. Patient only opens eyes and stays awake for few seconds at a time. ), Abnormal speech (And slight slurring) - Studies Laboratory Data (last 24 hrs) 12/06/19 20:50: PT 11.5, INR 0.97, APTT 39.6 H 12/06/19 20:50: WBC 9.0, Hgb 15.5 H, Hct 45.6 H, Plt Count 255 12/06/19 20:50: Sodium 137, Potassium 4.3, BUN 15, Creatinine 0.96, Glucose 103 Assessment & Plan Physician Review Additional Text: Ischemic CVA COPD Hypertension Hypothyroidism Hyperlipidemia Suspected ANNA Plan Ischemic CVA, basal ganglia -CT Brain: Small low density area in the right basal ganglial probably lacunar infarct -Aspirin, Plavix, folic acid, statin, ACEI. outside window for t-PA -Neurology consult in place, ED provider did speak with neurology. -Speech, physical therapy consult in place. -Echo, carotid ultrasound, MRI stroke protocol ordered. -Continue with fall and aspiration precautions. -difficult to fully examine neurologically at this time due to patient's inability to stay awake/converse. Will return later this morning, and will reac h out to family -DVT prophylaxis Lovenox 40 mg subcutaneous once daily. Suspected ANNA: -while asleep in ED: patient with some snoring and saturations dropping in the high 80s. Suspect obstructive sleep apnea due to body habitus, will need further workup likely on outpatient basis. COPD: Patient does not appear to take any daily medications or inhalers related to COPD. Will provide albuterol inhaler for p.r.n. use. Hypertension: Continue lisinopril 10 mg p.o. daily. Adjust as needed. Hypothyroidism: Continue levothyroxine 50 mcg p.o. daily, obtain thyroid panel morning labs. Hyperlipidemia: Initiate statin therapy. Check lipid panel with morning labs. Dispo: pending further evaluation, anticipate dc in 24-48 hrs Time Spent Managing Pts Care (In Minutes): 35
[2019-12-07 10:13] LABS: Creatine Phosphokinase 198 U/L (26-192); Troponin I < 0.02 ng/mL (0.0-0.045)
[2019-12-07] MEDS: DULOXETINE 30 MG CAP PO SCH (10:30)
[2019-12-07] MEDS: MONTELUKAST 10 MG TAB PO SCH (14:13)
[2019-12-07] MEDS ORDERED: ENSURE HIGH PROTEIN 237 ML CAN PO SCH (15:00)
--- NOTE | 2019-12-07 20:37 | RAD REPORT ---
EXAM DESCRIPTION: US - CP - 12/07/2019 8:17 pm CLINICAL HISTORY: cva Headache, drowsiness, CVA symptomology COMPARISON: Ct Stroke Brain Wo Cont dated 12/06/2019 TECHNIQUE: Real-time sonographic evaluation of both carotid systems was performed. Doppler interroga tion was performed with waveform tracing bilaterally. FINDINGS: Normal high resistance waveforms are noted in both external carotid arteries. The common c arotid arteries and internal carotid arteries show normal low resistance waveforms. Mild hard plaque is seen in both carotid bulbs. Peak systolic and end diastolic velocity values and t he ICA/CCA ratios are in the non-hemodynamically significant range. Antegrade flow seen in both vertebral arteries. IMPRESSION: Mild hard plaque is seen in both proximal internal carotid arteries. No evidence of a hemodynamically significant stenosis.
[2019-12-07] MEDS ORDERED: ATORVASTATIN 40 MG TAB PO SCH (21:00)
[2019-12-08] MEDS: NA CHLORIDE 0.9% 1,000 ML IV SCH ×2 (03:44→05:01)
[2019-12-08 06:20] LABS: Absolute Lymphocytes (CBC) 1.5 K/uL (0.7-4.9); Basophils % 0.9 % (0-1.3); Hematocrit 42.4 % (36.0-45.0); Lymphocytes % 19.8 % (15.3-44.8); MPV 9.1 fL (7.6-11.3); RBC Red Blood Cell Count 4.35 M/uL (3.86-4.86)
[2019-12-08 06:28] LABS: BUN Blood Urea Nitrogen 8 mg/dL (7-18); Bicarbonate 33 mmol/L (21-32); Glucose Level 98 mg/dL (74-106); Magnesium 2.1 mg/dL (1.8-2.4); Potassium 3.6 mmol/L (3.5-5.1); Sodium Level 138 mmol/L (136-145)
[2019-12-08] MEDS: LEVOTHYROXINE SOD 0.05 MG TABLET PO SCH (06:30)
[2019-12-08 08:18] VITALS: BP 155/80; TEMP 97.9
--- NOTE | 2019-12-08 08:44 | RAD REPORT ---
EXAM DESCRIPTION: CTHead angio12/07/2019 10:17 pm CLINICAL HISTORY: TIA COMPARISON: None TECHNIQUE: CT angiogram of the head was obtained. 3D MIPS reconstruction performed. All CT scans are performed using dose optimization technique as appropriate and may include automated exposure control or mA/KV adjustment according to patient size. FINDINGS: The basilar, internal carotid, anterior cerebral, middle cerebral and posterior cerebral a rteries are normal caliber. An aneurysm is not seen. Mild atherosclerotic disease involves the internal carotid arteries A significant stenosis is not noted. IMPRESSION: No acute abnormality is displayed
[2019-12-08] MEDS ORDERED: POTASSIUM CL SA 10 MEQ TAB PO ONE (09:00)
[2019-12-08] MEDS ORDERED: ENSURE HIGH PROTEIN 237 ML CAN PO SCH (09:00)
[2019-12-08 09:05] LABS: Arterial Blood Carboxyhemoglob 1.5 % (0-1.5); Blood O2 Saturation 96.6 % (92-98.5)
[2019-12-08 09:12] VITALS: O2SAT 97
[2019-12-08] MEDS: lisinopriL 10 MG TAB PO SCH (09:35)
[2019-12-08] MEDS: FOLIC ACID 1 MG TABLET PO SCH (09:35)
[2019-12-08] MEDS: DULOXETINE 30 MG CAP PO SCH (09:36)
[2019-12-08] MEDS: MONTELUKAST 10 MG TAB PO SCH (09:36)
[2019-12-08] MEDS: CLOPIDOGREL 75 MG TABLET PO SCH (09:36)
[2019-12-08] MEDS: ENOXAPARIN 40 MG/0.4 ML SQ SCH (09:36)
--- NOTE | 2019-12-08 11:07 | P.DS ---
Admission Date: 12/06/19 Discharge Date: 12/08/19 Primary Care Provider: Dr. Barrera Disposition: ROUTINE DISCHARGE Discharge Condition: FAIR Reason for Admission: Ischemic CVA Brief History of Present Illness: 69 year old morbidly obese woman with a history of hypothyroidism, COPD, chronic respiratory failure was brought to the emergency department due to episodes of altered mental status and slurred speech. There was also a question of left- sided facial droop. The patient was somnolent on arrival to the ED. CT head done in the ED showed a small density in basal ganglia suggestive of lacunar infarct. Patient toxicology screen was also positive for opiates and benzodiazepine. Patient was known to take [place] for chronic pain but not benzodiazepine. She was admitted for further workup for acute CVA. Hospital Course: Patient admitted to the medical floor. Work up for CVA done with carotid Doppler which was unremarkable. Patient also had a repeat CTA head we did not show any acute disease or any significant vascular issues. Noted patient was snoring loudly during sleep, and high bicarb in the blood chemistry indicating possible CO2 retention. Arterial blood gas done today showed PCO2 of 51. Patient altered mental status likely related to CO2 retention. She likely has obstructive sleep apnea compounded by the use of benzodiazepine and opioid together. This has been communicated to the patient and told she will benefit from outpatient sleep study to evaluate for obstructive sleep apnea. Patient mental status has improved. She has been up and ambulating. She currently has no complain. She has no focal weakness, no facial weakness. Patient be discharged to follow with pulmonary-Dr. Arteaga for further management. Vital Signs/Physical Exam: Temp Pulse Resp BP Pulse Ox 97.9 F 76 18 155/80 H 98 12/08/19 08:00 12/08/19 09:35 12/08/19 08:00 12/08/19 09:35 12/08/19 08:00 General: Alert, In no apparent distress, Oriented x3 HEENT: Mucous membr. moist/pink Neck: Supple, JVD not distended Respiratory: Clear to auscultation bilaterally, Normal air movement, Diminished Cardiovascular: No edema, Regular rate/rhythm, Normal S1 S2 Gastrointestinal: Normal bowel sounds, Soft and benign Musculoskeletal: No swelling, No erythema Integumentary: No rashes Neurological: Normal strength at 5/5 x4 extr Laboratory Data at Discharge: WBC 7.4 K/uL (4.3-10.9) 12/08/19 05:58 Hgb 14.3 g/dL (12.0-15.0) 12/08/19 05:58 Hct 42.4 % (36.0-45.0) 12/08/19 05:58 Plt Count 226 K/uL (152-406) 12/08/19 05:58 PT 11.5 SECONDS (9.5-12.5) 12/06/19 20:50 INR 0.97 12/06/19 20:50 APTT 39.6 SECONDS (24.3-36.9) H 12/06/19 20:50 Sodium 138 mmol/L (136-145) 12/08/19 05:58 Potassium 3.6 mmol/L (3.5-5.1) 12/08/19 05:58 BUN 8 mg/dL (7-18) 12/08/19 05:58 Creatinine 0.64 mg/dL (0.55-1.3) 12/08/19 05:58 Glucose 98 mg/dL (74-106) 12/08/19 05:58 Magnesium 2.1 mg/dL (1.8-2.4) 12/08/19 05:58 Troponin I < 0.02 ng/mL (0.0-0.045) 12/07/19 09:09 Triglycerides 95 mg/dL (<150) 12/07/19 03:14 Cholesterol 220 mg/dL (<200) H 12/07/19 03:14 HDL Cholesterol 72 mg/dL (40-60) H 12/07/19 03:14 Cholesterol/HDL Ratio 3.06 12/07/19 03:14 Home Medications: Hydrocodone Bit/Acetaminophen [[place] 7.5-325 Tablet] 1 each PO TID 03/15/18 Levothyroxine Sodium 50 mcg PO DAILY 03/15/18 Lidocaine 4% Patch [Lidoderm 5% Patch*] 1 patch TOP DAILY PRN 03/15/18 Duloxetine HCl [Cymbalta] 60 mg PO DAILY 12/07/19 Montelukast Sodium [Singulair] 10 mg PO DAILY 12/07/19 Atorvastatin Calcium [Lipitor] 40 mg PO BEDTIME #30 tab 12/08/19 lisinopriL [Prinivil*] 10 mg PO DAILY #30 tab 12/08/19 New Medications: Atorvastatin Calcium [Lipitor] 40 mg PO BEDTIME #30 tab lisinopriL [Prinivil*] 10 mg PO DAILY #30 tab Diet: AHA Activity: Ad zoë Followup: Luis A Arteaga MD [ACTIVE - CAN ADMIT] - 1-2 Weeks (Evaluate for Sleep apnea.) Time spent managing pt's care (in minutes): 40
[2019-12-09 14:04] LABS: C.diff Antigen/Toxin Ag neg : Tox neg (NEG : NEG)
--- OUTSIDE RECORDS SUMMARY | 2019-12-10 02:01 | XMS REPORT | Continuity of Care Document ---
:1950 Author Organization [facility] t Address [address] [place] [address] Dr. Escalante [address] [place] [id number] Care Team Providers Name Role Phone Unavailable Unavailable Unavailable Problems Condition Condition Condition Status Onset Resolution Last Treating Co mments Source Name Details Category Date Date Treatment Clinician Date Acquired Acquired Problem [facility] Arrhythmia Arrhythmia Problem [facility] IBS IBS Problem Active [facility] (irritable (irritable Mikaela kes - bowel bowel Mem[facility] syndrome) syndrome) l Outpati ent Clinics CKD CKD Problem Active [facility]chronic (chronic [facility] kidney kidney [facility] disease), disease), l stage IV stage IV Outpat i ent Clinics Chronic Chronic Problem Active [facility] fatigue fatigue [facility] Psoriasis Psoriasis Problem [facility] Encounter Encounter Problem Active [facility] for for [facility] - tobacco tobacco [facility] use use l cessation cessation Outp ati counseling counseling en t Clinics Coronary Coronary Problem [facility] artery artery [facility] - disease disease [facility] involving involving l [place]i coronary coronary ent artery artery Clinics without without angina angina pectoris, pectoris, unspecifie unspecifie d whether d whether [place] or transplant transplant ed heart ed heart CKD CKD Problem Active [facility] (chronic (chronic [facility] kidney kidney [facility] disease), disease), l stage III stage III Outp ati ent Clinics Cigarette Cigarette Problem Active [facility] nicotine nicotine [facility] - dependence dependence Me moria without without l complicati complicati Ou tpati on on ent Clinics HTN HTN Problem Active [facility] (hypertens (hypertens Mikaela kes - ion) ion) [facility] Depression Depression Problem [facility] COPD COPD Problem Active [facility] (chronic (chronic [facility] - obstructiv obstructiv Me moria e e l pulmonary pulmonary Outp ati disease) disease) ent Clinics Sinus Sinus Problem Active [facility] problem problem [facility] Osteoporos Osteoporos Problem Active [facility] is is [facility] Thyroid Thyroid Problem Active [facility] disease disease [facility] Anxiety Anxiety Problem [facility] Seasonal Seasonal Problem [facility] allergies allergies [facility] - [facility] Hyponatrem Hyponatrem Problem Active [facility] ia ia [facility] Prediabete Prediabete Problem Active [facility] History of History of Problem Active [facility] ASCVD ASCVD [facility] Supplement Supplement Problem Active [facility] al oxygen al oxygen Luke s - dependent dependent Mohinder paddy l [facility] Allergies, Adverse Reactions, Alerts This patient has no known allergies or adverse reactions. Medications Ordered Filled Start Stop Current Ordering Indication Dosage Frequency Signature Comments Components Source Medication Medication Date Date Medication? Clinician (SIG) Name Name Macrobid Macrobid 2019- No Na Barrera [address] [facility] 08-05 with food [facility] 00:00: 00:00 [facility] 00 :00 [facility] ent Clinics Procedures This patient has no known procedures. Encounters Start End Encounter Admission Attending Care Care Encounter Source Date/Time Date/Time Type Type Clinicians Facility Department ID 2019-08-27 2019-08-27 [facility] [id number] [facility] 08:35[facility]00 08:35:00 t [employer] [facility] 2019-08-10 2019-08-10 [facility] [id number] [facility] 14:58:00 14:58:00 t [employer] [facility] 2019-08-07 2019-08-07 [facility] [id number] [facility] 15:31:00 15:31:00 t [employer] [facility] 2019-08-06 2019-08-06 [facility] [id number] 08:00:00 08:00:00 t [employer] [facility] - Drive [facility] Medicine l Medicine Outpati ent Clinics 2019-07-06 2019-07-06 [facility] [id number] 16:34:00 16:34:00 t [employer] s - Drive [facility] l Medicine Outpati ent Clinics 2019-06-11 2019-06-11 [facility] [id number] 11:14:00 11:14:00 t [place] [facility] - Drive [facility] Medicine l Medicine Outpati ent Clinics 2019-05-28 2019-05-28 [facility] [id number] [facility] 16:13:00 16:13:00 t [employer] - Drive [facility] l Medicine Outpati ent Clinics 2019-03-19 2019-03-19 [facility] [id number] [facility] 16:53:00 16:53:00 t [place] [employer] - Drive [facility] Medicine Outpati ent Clinics 2019-03-17 2019-03-17 [facility] [id number] 08:02:00 08:02:00 t [employer] - Drive [facility] Medicine Outpati ent Clinics 2019-03-11 2019-03-11 [facility] [id number] [facility] 15:56:00 15:56:00 t [place] [employer] - Drive [facility] l Medicine Outpati ent Clinics 2019-03-11 2019-03-11 [facility] [id number] [facility] 08:53:00 08:53:00 t [place] [employer] - Drive [facility] Medicine Outpati ent Clinics 2019-03-10 2019-03-10 [facility] [id number] 13:40:00 13:40:00 t [place] - Drive [facility] Medicine Outpati ent Clinics 2018-10-28 2018-10-28 [facility] [id number] 11:44:00 11:44:00 t [place] - Drive [facility] l Medicine Outpati ent Clinics 2018-10-09 2018-10-09 [facility] [id number] [facility] 09:34:00 09:34:[address] [facility] - [address] [facility] Medicine Outpati ent Clinics 2018-09-01 2018-09-01 [facility] [id number] [address] 08:40:00 08:40:[address] [facility] s - Drive [facility] l Medicine Outpati ent Clinics 2018-08-29 2018-08-29 [facility] [id number] [facility] 13:39:00 13:39:00 t [place] [place] [facility] - Drive [facility] l Medicine Outpati ent Clinics 2018-06-13 2018-06-13 [facility] [id number] [facility] 14:41:00 14:41:00 t [place] [place] [facility] - Drive [facility] l Medicine Outpati ent Clinics 2018-06-11 2018-06-11 [facility] [id number] 09:59:00 09:59:00 t [place] [place] [facility] - Drive [facility] Medicine Outpati ent Clinics 2018-06-03 2018-06-03 [facility] [id number] [address] 11:00:00 11:00:00 t [place] [place] [facility] - Drive [facility] l Medicine Outpati ent Clinics 2018-05-12 2018-05-12 [facility] [id number] 09:43:00 09:43:00 t [place] - Drive [facility] Medicine Outpati ent Clinics 2018-04-17 2018-04-17 [facility] [id number] 13:45:00 13:45:00 t Specialty/U Mikaela kes - Specialty rology Memori a /Urology Clinic l Clinic Outpati ent Clinics 2018-04-03 2018-04-03 [facility] [id number] [address] 08:31:00 08:31:00 t [place] [place] [facility] - Drive [facility] l Medicine Outpati ent Clinics 2018-03-28 2018-03-28 [facility] [id number] 13:10:00 13:10:[address] [employer] [facility] 2018-03-28 2018-03-28 [facility] [id number] 10:52:00 10:52:00 t Specialty/U Mikaela orona - Specialty rology [facility] a /Urology Clinic l [facility] 2018-03-26 2018-03-26 [facility] [id number] 16:01:00 16:01:00 t [employer] [facility] ent [facility] 2018-03-25 2018-03-25 [facility] [id number] 08:15:00 08:15:00 t [employer] [facility] ent Clinics Results This patient has no known results.
--- NOTE | 2019-12-10 09:46 | ECHO ---
HEIGHT: 5 ft 4 in WEIGHT: 262 lb 0 oz DATE OF STUDY: 12/07/[address]: Juan Stearns NP 2-DIMENSIONAL: YES M.MODE: YES DOPPLER: YES COLOR FLOW: YES TDS: YES PORTABLE: NO DEFINITY: NO BUBBLE STUDY: NO DIAGNOSIS: CEREBRAL VASCULAR ACCIDENT CARDIAC HISTORY: CATHERIZATION: SURGERY: PROSTHETIC VALVE: PACEMAKER: MEASUREMENTS (cm) DIASTOLIC (NORMALS) SYSTOLIC (NORMALS) IVSd 0.9 (0.6-1.2) LA Diam (1.9-4.0) LVEF 65% LVIDd 4.4 (3.5-5.7) LVIDs 2.8 (2.0-3.5) %FS 35% LVPWd 1.1 (0.6-1.2) Ao Diam 2.6 (2.0-3.7) 2 DIMENSIONAL ASSESSMENT: RIGHT ATRIUM: NORMAL LEFT ATRIUM: NORMAL RIGHT VENTRICLE: NORMAL LEFT VENTRICLE: NORMAL TRICUSPID VALVE: NORMAL MITRAL VALVE: NORAML PULMONIC VALVE: NORMAL AORTIC VALVE: NORMAL PERICARDIAL EFFUSION: NONE AORTIC ROOT: NORMAL LEFT VENTRICULAR WALL MOTION: NORMAL DOPPLER/COLOR FLOW: NORMAL COMMENTS: NORMAL LEFT VENTRICULAR EJECTION FRACTION 55-60% WITH NORMAL WALL MOTION. TECHNOLOGIST: Anthony LE
== END 2019-12-08 12:44 | disposition home or self-care (01) | DRG 69 ==
LOC: ER 20:47 → ERHOLD 22:56 → 2ND 23:36
PROVIDERS: ADMIT Hospitalist; ATTEND Internal Medicine
DX: I67.82 Cerebral ischemia (principal); J96.02 Acute respiratory failure with hypercapnia; G93.41 Metabolic encephalopathy; Z68.42 Body mass index [BMI] 45.0-49.9, adult; E66.2 Morbid (severe) obesity with alveolar hypoventilation; R47.81 Slurred speech; E78.5 Hyperlipidemia, unspecified; J44.9 Chronic obstructive pulmonary disease, unspecified; I10 Essential (primary) hypertension; G89.29 Other chronic pain; E03.9 Hypothyroidism, unspecified; R41.82 Altered mental status, unspecified; R29.709 NIHSS score 9; R29.810 Facial weakness; Z79.891 Long term (current) use of opiate analgesic; Z79.899 Other long term (current) drug therapy; Z79.890 Hormone replacement therapy; Z20.828 Contact with and (suspected) exposure to other viral communicable diseases
CPT/HCPCS: 36415; 51702; 70450; 70496; 71045; 80048; 80061; 80307; 81003; 82550; 82805; 82947; 83735; 84439; 84443; 84484; 85025; 85610; 85730; 87324; 87449; 92610; 93005; 93306; 93880; 97112; 97116; 97161; 99285; J1650; J7030; Q9967; U0003

== ENCOUNTER 2020-12-17 13:17 | Inpatient (IN) | payer OTHER ==
[2020-12-17] MEDS ORDERED: VANCOMYCIN/NS 1 gm 1 GM/250 ML BAG IVPB ONE (14:00)
[2020-12-17] MEDS ORDERED: THIAMINE 200 MG/2 ML INJ ONE (14:11)
[2020-12-17] MEDS ORDERED: CEFEPIME 1 GM/VIAL ONE (14:11)
[2020-12-17] MEDS ORDERED: NA CHLORIDE 0.9% 2,000 ML ONE ×2 (14:12→16:21)
[2020-12-17] MEDS ORDERED: FAMOTIDINE 20 MG/2 ML VIAL IV ONE (14:12)
[2020-12-17] MEDS ORDERED: NA CHLORIDE 0.9% 100 ML ONE (14:12)
[2020-12-17] MEDS ORDERED: NA CHLORIDE 0.9% 1,000 ML with FOLIC ACID 1 MG, THIAMINE HCL 100 MG, MULTIVITAMINS INJ ... IV ONE ×4 (14:30)
[2020-12-17 14:31] LABS: Absolute Lymphocytes (CBC) 0.3 K/uL (0.7-4.9); Basophils % 0.1 % (0-1.3); Hematocrit 41.1 % (36.0-45.0); Lymphocytes % 4.7 % (15.3-44.8); RBC Red Blood Cell Count 4.26 M/uL (3.86-4.86)
[2020-12-17 14:39] LABS: Protime INR 0.86
[2020-12-17 14:50] LABS: Barbiturates NEGATIVE (NEGATIVE); Benzodiazepines NEGATIVE (NEGATIVE); Cocaine NEGATIVE (NEGATIVE); METHAMPHETAM NEGATIVE (NEGATIVE); Methadone NEGATIVE (NEGATIVE); Opiates POSITIVE (NEGATIVE); Phencyclidine NEGATIVE (NEGATIVE); THC Cannibis NEGATIVE (NEGATIVE)
--- NOTE | 2020-12-17 14:56 | RAD REPORT ---
EXAM DESCRIPTION: CT - Head C Spine Cap Wo Con - 12/17/2020 2:30 pm CLINICAL HISTORY: PAIN, fall, head, neck, chest and abdomen pain, found unresponsive COMPARISON: No comparisons TECHNIQUE: Axial [address] head images were obtained. Axial [address] cervical spine images were obtain ed with sagittal and coronal reconstruction images reviewed. Axial 5 mm images of the chest, abdomen and pelvis were obtained without IV contrast. Sagittal and coronal reconstruction of the chest, abdo men and pelvis performed. All CT scans are performed using dose optimization technique as appropriate and may include automated exposure control or mA/KV adjustment according to patient size. FINDINGS: No intracranial hemorrhage, mass or edema. No midline shift or abnormal fluid collection. Mastoid air cells and paranasal sinuses are clear. No skull fracture. CT cervical spine shows normal height and alignment. Prominent degenerative changes are present. No f racture or acute finding. No disc space narrowing. No suspicious soft tissue finding. Central canal d etail is inherently limited. CT chest shows no pneumothorax, pulmonary contusion or pleural fluid collection. No mediastinal hemat juan a and the aorta and pulmonary arteries are unremarkable for non contrast study. No chest will mass or abnormal axillary finding. No displaced rib fracture or other significant bony finding. CT abdomen and pelvis show no injury to the solid abdominal viscera. Diffuse fatty infiltration the l iver is present. No acute gallbladder finding. Wall assessment cannot be made accurately on this stud y. Gallstones and sludge can be occult on CT imaging. No biliary tree dilatation. No bowel injury or significant finding. No free air, free fluid or abnormal stranding. No urinary bladder abnormality. Disc and bone degenerative changes are present. 20% wedge compression fracture deformity is present i n the L3 body with posterior wall height preserved. Age of the fracture is uncertain. Acute fracture is possible. No other compression fracture deformity seen. L3 changes do not involve the pedicles or posterior elements. IMPRESSION: No significant CT Head finding. No significant CT cervical spine finding. Degenerative changes are present. No acute traumatic CT chest finding. No acute traumatic soft tissue CT abdomen or pelvis finding. L3 20% wedge compression fracture deformity is present age uncertain. Acute fracture cannot be exclud ed. Posterior wall height preserved with no encroachment into the central canal. Correlation is neede d with any mid lumbar pain symptoms.
[2020-12-17 15:18] LABS: ALT/SGPT 98 U/L (12-78); AST/SGOT 202 U/L (15-37); Albumin 3.1 g/dL (3.4-5.0); Alkaline Phosphatase 210 U/L (45-117); BUN Blood Urea Nitrogen 85 mg/dL (7-18); Bicarbonate 17 mmol/L (21-32); Bilirubin Direct 1.8 mg/dL (0-0.2); Bilirubin Total 2.4 mg/dL (0.2-1.0); CKMB Creatine Kinase MB 17.4 ng/mL (1.0-3.6); Creatine Phosphokinase 2995 U/L (26-192); Glucose Level 93 mg/dL (74-106); Lipase 94 U/L (73-393); NT PRO-BNP 1070 pg/mL (<125); Protein, Total 6.8 g/dL (6.4-8.2); Sodium Level 120 mmol/L (136-145); Troponin (Emerg Dept Use Only) 0.02 ng/mL (0.0-0.045)
[2020-12-17 15:38] LABS: Arterial Blood Carboxyhemoglob 1.7 % (0-1.5); Blood Gas Oxyhemoglobin 91.6 % (94-97); Blood O2 Saturation 94.4 % (92-98.5)
[2020-12-17 15:44] LABS: Blood Morphology Comment NOT SEEN (NOT SEEN); Platelet Estimate ADEQ; White Blood Cell Scan OK (OK)
[2020-12-17] MEDS ORDERED: ALBUTEROL 2.5 MG/3 ML NEB SOL ONE ×2 (15:57→16:17)
[2020-12-17] MEDS ORDERED: SOD POLYSTYREN SUL 15 GM/60 ML UCUP ONE (15:58)
[2020-12-17] MEDS ORDERED: INSULIN -REGULAR HUMAN 50 UNIT/0.5 ML ML ONE (15:58)
[2020-12-17] MEDS ORDERED: CALCIUM GLUCONATE 1 GM IVPB 1 GM/50 ML BAG IV ONE (15:59)
[2020-12-17] MEDS ORDERED: D50W 25 GM/50 ML SYRINGE IV ONE (15:59)
[2020-12-17] MEDS ORDERED: IPRATROPIUM BROM 0.5MG/2.5ML ONE (16:17)
--- NOTE | 2020-12-17 16:26 | RAD REPORT ---
EXAM DESCRIPTION: RAD - Pelvis - 12/17/2020 3:26 pm CLINICAL HISTORY: PAIN, fall COMPARISON: PELVIS dated 12/06/2010 TECHNIQUE: AP imaging of the pelvis was obtained. FINDINGS: Exam has technical limitations due to very large body habitus affects and imaging techniqu e. No gross fracture deformity of the pelvis. No fracture or dislocation of either proximal femur. No acute soft tissue finding seen. Lumbar degenerative change with left convex curvature noted. IMPRESSION: No fracture or acute finding identifiable. Exam has significant technical limitation. If patient has pain symptoms out of proportion to these ra diographic findings, CT imaging could be performed.
--- NOTE | 2020-12-17 16:27 | RAD REPORT ---
EXAM DESCRIPTION: RAD - Chest Single View - 12/17/2020 3:26 pm CLINICAL HISTORY: COUGH, patient found down, fall COMPARISON: December 2019 TECHNIQUE: AP portable chest image was obtained 12/17/2020 3:26 pm . FINDINGS: Lungs are clear. Heart and vasculature are normal. No measurable pleural effusion and no p neumothorax. No acute bony abnormality seen. No acute aortic findings suspected. IMPRESSION: No acute cardiopulmonary process.
--- NOTE | 2020-12-17 16:33 | ER ---
Nurse's Notes [facility] Name: Earnest Baker Age: 70 yrs Sex: Female : 1950 Arrival Date: 12/17/2020 Time: 13:27 Bed 27 Private MD: Diagnosis: Hypotension, unspecified;Acute kidney failure, unspecified;Hyperkalemia;COPD/ Chronic obstructive pulmonary disease with (acute) exacerbation;Morbid (severe) obesity due to excess calories;Alcohol abuse;Alcohol abuse with intoxication;Fall on same level, unspecified;Pain in right lower leg;Cellulitis and acute lymphangitis of other parts of limb-thigh;Severe sepsis without septic shock Presentation: 12/17 13:21 Chief complaint: EMS states: Pt found down by , unknown downtime. left [facility] for work at 0600 and came home at 1200. Pt's right leg was bent behind her, appeared to fall onto bed, pillows and floor. Pt binge drinking liquor for the past 2 weeks. Pt drowsy and oriented x3 to self, place, time on arrival. 13:21 Method Of Arrival: EMS: [facility] 13:21 Coronavirus screen: At this time, the client does not indicate any symptoms associated [facility] with coronavirus-19. Ebola Screen: No symptoms or risks identified at this time. Risk Assessment: Do you want to hurt yourself or someone else? Patient reports no desire to harm self or others. Onset of symptoms is unknown. 13:21 Acuity: AMANDA 2 7 13:21 Care prior to arrival: None. Mechanism of Injury: Fall from standing position. Trauma jl7 event details: Injury occurred in the [facility], Injury occurred: at home. Injury occurred: December 17, 2020. 14:28 Initial Sepsis Screen: Does the patient meet any 2 criteria? No. Patient's initial jl7 sepsis screen is negative. Does the patient have a suspected source of infection? No. Patient's initial sepsis screen is negative. Trauma Activation: Alert Physician: ED Physician; Name: Gurpreet; Notified At: 13:21; Arrived At: 13:21 Physician: General Surgeon; Name: ; Notified At: 13:21; Arrived At: Physician: Radiology; Name: Isela; Notified At: 13:21; Arrived At: 13:25 Physician: Respiratory; Name: ; Notified At: 13:21; Arrived At: Physician: Lab; Name: ; Notified At: 13:21; Arrived At: Historical: - Allergies: 14:17 No Known Allergies; jl7 - PMHx: 14:17 COPD; Hypertension; jl7 - Immunization history:: Client reports receiving the 2nd dose of the Covid vaccine. - Social history:: Patient uses alcohol, on a daily basis. patient/guardian reports recent binge of alcohol consumption. Smoking status: unknown. - Immunization history: Last tetanus immunization: unknown. - Family history:: not pertinent. Screenin:21 Abuse screen: Denies threats or abuse. Denies injuries from another. Tuberculosis jl7 screening: No symptoms or risk factors identified. 14:26 Nutritional screening: No deficits noted. Fall Risk Fall in past 12 months (25 points). jl7 IV access (20 points). Total Garcia Fall Scale indicates High Risk Score (45 or more points). Fall prevention measures have been instituted. Side Rails Up X 2 Placed Close to Nursing Station Frequent Obs/Assessments Occuring As available patient and family educated on Fall Prevention Program and Strategies. Primary Survey: 13:21 NO uncontrolled hemorrhage observed. A: Airway: patent. Breathing/Chest: Respiratory jl7 pattern: regular, Respiratory effort: spontaneous, grunting, Breath sounds: wheezes, bilaterally, Chest inspection: symmetrical rise and fall of the chest. Circulation: Pulses: palpable right femoral artery, right dorsalis pedis artery, left femoral artery and left dorsalis pedis artery. Skin color: mottled. Disability Verbal Stimuli. Exposure/Environment: All clothing and personal items were removed. Forensic evidence collection is not deemed to be indicated at this time. Items placed in patient belonging bag. There is no evidence of uncontrolled external bleeding. Obvious injury(ies) are noted at this time: bruising and abrasions noted to bilateral legs and arms, right leg appears externally rotated and shortened A warming method has been applied: A warm blanket has been provided to the patient. 13:45 Reassessment Airway Airway Patent Breathing/Chest Respiratory pattern Regular jl7 Respiratory effort Spontaneous Grunting Breath sounds Wheezes Chest inspection Symmetrical Circulation Heart tones Present Pulses Palpable Color [place] Temperature Warm. Assessment: 13:30 Reassessment: Pt with dried fecal matter all over body, under finger nails, bruising jl7 from left lateral thigh extending up and along buttocks and to small of back. Pt's body wiped down, brief placed on pt. 13:30 General: Appears in no apparent distress. uncomfortable, obese, unkempt, Behavior is jl7 agitated, drowsy, restless, uncooperative, Smells of urine and feces. Pain: Complains of pain in all over. Neuro: Level of Consciousness is obeys commands, Oriented to person, place, time, Speech is slurred. EENT: Oral mucosa is dry. Cardiovascular: Patient's skin is warm and dry. Respiratory: Airway is patent Respiratory effort is even, unlabored, Respiratory pattern is regular, symmetrical, Breath sounds with wheezes bilaterally. GI: Last BM was December 17, 2020. Derm: Skin temperature is cool Wound noted low back area, buttocks and right knee Bruising that is bright red, dark purple, on low back area, buttocks, left hip and lateral aspect of left thigh. 13:45 Reassessment: Gerald asked pt if she feels safe at home, pt states "Sometimes." jl7 MANAV Arambula stated "What do you mean?" Pt states "I don't want to talk about it.". 15:02 Reassessment: Patient and/or family updated on plan of care and expected duration. Pain ap3 level reassessed. Patient is alert, oriented x 3, equal unlabored respirations, skin warm/dry/pink. X-Ray at the bedside. 17:00 Reassessment: Pt refusing to sign transfer form, ERD notified and at bedside, pt jl7 continues to refuse transfer at this time. notified and reports he is on his way. 18:00 Reassessment: at bedside with Dr. Vázquez, pt continues to refuse transfer at jl7 this time. 19:00 Reassessment: VO received from MARY Martinez to stop additional NS bolus's and start 1/2 NS jl7 at 100 cc/hr. 19:12 Reassessment: APS contacted. . ap3 20:19 Reassessment: Pt cleaned up, linens and brief changed. Lo in place. Pt complaining wg of the cold room, advised we did not have control over the room temp. Pt has blankets in place. Pt is not febrile. Pt states she wants to go home but clearly unable to even stand, let alone care for self at home. Pt refusing to go to [place] because she wants to be with family. Advised that her family wants her to be in [place] and could only have one visitor in a 24 hour period here. Cardiovascular: Denies chest pain, nausea, shortness of breath, Pulses are all present. Rhythm is sinus rhythm. Respiratory: Airway is patent Trachea midline Respiratory effort is even, unlabored, Respiratory pattern is regular, symmetrical, Breath sounds are clear bilaterally. GI: Abdomen is round obese, Bowel sounds present X 4 quads. : Lo in place to gravity drainage. Derm: Bruising that is bright red, dark purple, on left leg and lateral aspect of left thigh and right gluteus johnathan and left gluteus johnathan and right leg. 12/18 14:22 Reassessment: Allison (sister) [phone]. jd3 Vital Signs: 12/17 13:21 Pulse 62; Resp 19; Temp 98.7; Weight 113.4 kg (R); jl7 13:21 BP 104 / 92; Pulse 62; Resp 20; Temp 98.9; Pulse Ox 97% ; jl7 14:00 BP 112 / 59; Pulse 73; Resp 16; Pulse Ox 99% on R/A; jl7 14:45 BP 120 / 95; Pulse 75; Resp 22; Pulse Ox 99% ; jl7 15:02 Pulse 61; Resp 20; Pulse Ox 94% on R/A; ap3 15:30 BP 101 / 79; Pulse 75; Resp 19; Pulse Ox 99% ; jl7 16:30 BP 92 / 62; Pulse 77; Resp 20; Pulse Ox 100% ; jl7 17:30 BP 90 / 56; Pulse 75; Resp 15; Pulse Ox 100% ; jl7 20:19 BP 104 / 47; Pulse 68; Resp 18; Temp 97.8; Pulse Ox 98% on R/A; Pain 5/10; wg Vitals: 20:19 Cardiac Rhythm Assessment Regular Sinus rhythm. wg [place] Coma Score: 13:21 Eye Response: to voice(3). Verbal Response: oriented(5). Motor Response: obeys jl7 commands(6). Total: 14. 14:45 Eye Response: spontaneous(4). Verbal Response: oriented(5). Motor Response: obeys jl7 commands(6). Total: 15. 15:30 Eye Response: spontaneous(4). Verbal Response: oriented(5). Motor Response: obeys jl7 commands(6). Total: 15. 16:30 Eye Response: spontaneous(4). Verbal Response: oriented(5). Motor Response: obeys jl7 commands(6). Total: 15. 17:30 Eye Response: spontaneous(4). Verbal Response: oriented(5). Motor Response: obeys jl7 commands(6). Total: 15. 12/21 09:21 Eye Response: to pain(2). Verbal Response: incomprehensible(2). Motor Response: tw5 localizes pain(5). Total: 9. Trauma Score (Adult): 12/17 13:21 Eye Response: to voice(0); Verbal Response: oriented(1); Motor Response: obeys jl7 commands(2); Systolic BP: > 89 mm Hg(4); Respiratory Rate: 10 to 29 per min(4); [place] Score: 14; Trauma Score: 11 ED Course: 13:21 Patient has correct armband on for positive identification. Placed in gown. Bed in low jl7 position. Call light in reach. Side rails up X2. 13:21 gambling monitor on. Pulse ox on. NIBP on. Warm blanket given. jl7 13:21 Arm band placed on right wrist. Patient placed in an exam room, on a stretcher, on jl7 oxygen, on cardiac nurse specialist, on pulse oximetry. 13:21 Patient maintains SpO2 saturation greater than 95% on room air. Thermoregulation: warm jl7 blanket given to patient. 13:27 Patient arrived in ED. eb 13:30 Jaxon Vázquez MD is Attending Physician. malachi 13:41 Tyesha Tobin RN is Primary Nurse. jl7 14:00 Initial lab(s) drawn, by ky, sent to lab. First set of blood cultures drawn by mic palmer Urine collected: Lo catheter specimen, cloudy, sanam colored, COVID swab sent to lab. Inserted saline lock: 22 gauge in right hand, using aseptic technique. Blood collected. 14:00 Lo cath inserted, using sterile technique, 16 Fr., by me, balloon inflated, to jl7 gravity drainage, urine specimen collected. returned sanam urine. Patient tolerated well. 14:15 Second set of blood cultures drawn by me. Inserted saline lock: 22 gauge in right jl7 antecubital area, using aseptic technique. Blood collected. 14:17 Triage completed. jl7 14:30 CT Traumagram (Head C Spine CAP wo con) In Process Unspecified. EDMS 15:25 XRAY Chest (1 view) In Process Unspecified. EDMS 15:26 Pelvis XRAY In Process Unspecified. EDMS 16:10 Assisted provider with central line placement. Set up central line tray. Triple lumen jl7 line placed in right femoral. Line placed by Jaxon Vázquez MD Placement verified by blood return, Dressed with Tape, Tegaderm, Blood was collected. Patient tolerated well. Before procedure, did Practitioner(s) obtain informed consent? No. Patient \\T\\ family education about procedure, CLABSI prevention and S/S of infection? Yes. Time-out/Briefing performed prior to start of procedure? Yes. Was handwashing/sanitizing done immediately prior to procedure? Yes. Was patient positioned to in a way to prevent air embolism? Yes. Was procedure site sterilized? Yes, with chlorhexidine. Was the site allowed to dry? Yes. Was local anesthetic and/or sedation utilized? Yes. During the procedure, did the Practitioner(s) maintain a sterile field? Yes. Were unused ports clamped during insertion? Yes. Was a 2nd qualified MD obtained after 3 unsuccessful insertion attempts? No. Was blood aspirated from each lumen? Yes. After the procedure, did the Practitioner(s) clean the site and apply a sterile dressing? Yes. 16:[address] Vázquez with Sveta Zabala from the [facility]. / per Sveta they will have to decline the transfer due to being at ICU capacity. 16:[address] Vázquez with Olga Fish Rn from the [facility]. 16:[address] Owen the hand candle molder science consultant for [facility] with Dr. bj Vázquez for patient transfer consultation. 16:44 administrative approval given by Olga Fish Rn/ patient has been accepted to [facility] ICU/ Dr. Erma Owen has accepted the patient in transfer/ report to be called to [phone]. 16:52 Tib Fib Right XRAY In Process Unspecified. EDMS 16:52 Femur Right XRAY In Process Unspecified. EDMS 17:17 Patient transferred, IV remains in place. intact, No redness/swelling at site. jl7 18:08 Edgar Galvez MD is Hospitalizing Provider. malachi 18:11 Hospitalizing Provider role handed off by Edgar Galvez MD la1 18:11 Apollo Mix DO is Hospitalizing Provider. la1 19:44 Osmolality, Serum Sent. wg 19:44 AMMONIA Sent. wg 19:44 Basic Metabolic Panel Sent. wg 19:44 CBC with Diff Sent. wg 12/18 07:40 Primary Nurse role handed off by Tyesha Tobin RN tw2 07:40 La Camara RN is Primary Nurse. tw2 Administered Medications: 12/17 14:00 Drug: Pepcid (famotidine) 20 mg Route: IVP; Site: right antecubital; jl7 14:10 Follow up: Response: No adverse reaction jl7 14:00 Drug: Thiamine 100 mg Route: IV; Rate: bolus; Site: right antecubital; jl7 14:10 Follow up: Response: No adverse reaction; IV Status: Completed infusion jl7 14:25 Drug: Cefepime 1 grams Route: IVPB; Rate: 200 ml/hr; Infused Over: 30 mins; Site: right ap3 antecubital; 14:55 Follow up: Response: No adverse reaction; IV Status: Completed infusion jl7 14:26 Drug: NS 0.9% 1000 ml Route: IV; Rate: 1 bolus; Site: right antecubital; ap3 15:30 Follow up: Response: No adverse reaction; IV Status: Completed infusion; IV Intake: jl7 1000ml 14:26 Drug: NS 0.9% 1000 ml Route: IV; Rate: 1 bolus; Site: right antecubital; ap3 16:00 Follow up: Response: No adverse reaction; IV Status: Completed infusion; IV Intake: jl7 1000ml 15:11 Drug: Banana Bag - (NS 0.9% 1000 ml, foLIC Acid 1 mg, Thiamine 100 mg, Multivitamin 1 ap3 amp) Route: IV; Rate: 150 ml/hr; Site: left wrist; 17:19 Follow up: Response: No adverse reaction; IV Status: Infusion continued upon transfer jl7 15:35 Drug: Calcium Gluconate 1 grams Route: IVPB; Infused Over: 10 mins; Site: right jl7 antecubital; 16:38 Follow up: IV Status: Completed infusion ap3 15:45 Drug: D50W 50 ml Route: IVP; Site: right antecubital; jl7 17:16 Follow up: Response: No adverse reaction jl7 15:50 Drug: Insulin Regular Human 10 units {Co-Signature: ap3 (Mindy Schafer RN).} Route: jl7 IVP; Site: right antecubital; 17:16 Follow up: Response: No adverse reaction jl7 15:52 Drug: Sodium Bicarbonate 1 amp Route: IVP; Site: right antecubital; jl7 17:16 Follow up: Response: No adverse reaction jl7 16:00 Drug: Kayexalate (polystyrene) 45 grams Route: PO; jl7 17:16 Follow up: Response: No adverse reaction jl7 16:34 Drug: NS 0.9% 1000 ml Route: IV; Rate: 1 bolus; Site: right femoral; jl7 19:02 Follow up: Response: No adverse reaction; IV Status: Completed infusion; IV Intake: jl7 1000ml 16:36 Drug: Albuterol - atroVENT (ipratropium) (3:1) (2.5 mg - 0.5 mg) 3 ml Route: Nebulizer; jl7 17:17 Follow up: Response: No adverse reaction jl7 16:50 Drug: Solu-CORTEF (hyrdoCORTISONE) 100 mg Route: IVP; Site: right wrist; ap3 17:16 Follow up: Response: No adverse reaction jl7 16:51 Drug: vancoMYCIN 1 grams Route: IVPB; Infused Over: 2 hrs; Site: right femoral; ap3 17:21 Follow up: Response: No adverse reaction; IV Status: Infusion continued upon transfer jl7 17:27 Not Given (Duplicate Order): fentaNYL (PF) 25 mcg IVP once; RASS on ADMIN: Combtv4, malachi Very Agttd3, Agttd2, Rstlss1, AlertClm0, Drwsy-1, Lt Sdtn-2, Mod Sdtn-3, Dp Sdtn-4, UnArsble-5 18:22 Drug: NS 0.9% 1000 ml Route: IV; Rate: 1 bolus; Site: right femoral; ap3 19:00 Follow up: Response: No adverse reaction; IV Status: Completed infusion; Order to jl7 discontinue infusion; IV Intake: 800ml 18:23 Drug: fentaNYL (PF) 25 mcg {Note: rass0.} Route: IVP; Site: right femoral; ap3 18:52 Follow up: Response: No adverse reaction; Pain is decreased jl7 18:23 Drug: Zofran (Ondansetron) 4 mg Route: IVP; Site: right femoral; ap3 18:53 Follow up: Response: No adverse reaction jl7 18:52 Drug: NS 0.9% 1000 ml Route: IV; Rate: 1 bolus; Site: right femoral; ap3 19:00 Follow up: IV Status: Completed infusion; Order to discontinue infusion; IV Intake: jl7 100ml 19:43 Drug: NS 0.45 % 1000 ml Route: IV; Rate: 100 ml/hr; Site: right femoral; 12/18 06:03 Follow up: IV Status: Completed infusion; IV Intake: 1000ml Intake: 12/17 15:30 IV: 1000ml; Total: 1000ml. jl7 16:00 IV: 1000ml; Total: 2000ml. jl7 19:00 IV: 3402ml; Total: 5402ml. jl7 19:00 IV: 100ml; Total: 5502ml. jl7 19:00 IV: 800ml; Total: 6302ml. jl7 19:02 IV: 1000ml; Total: 7302ml. jl7 12/18 06:03 IV: 1000ml; Total: 8302ml. Output: 12/17 19:00 Urine: 300ml (Lo); Total: 300ml. 7 Outcome: 16:33 ER care complete, transfer ordered by MD. malachi 18:11 Decision to Hospitalize by Provider. malachi 19:10 Admitted to ER Hold. Please see [facility] for further documentation. jl7 19:10 Condition: stable 19:10 Discharge instructions given to patient, family, Instructed on the need for admit, the need for transfer, Demonstrated understanding of Pt refusing transfer, wants to go home, unable to care for self at this time, instructs pt to stay at the hospital 19:34 Patient's length of stay in the Emergency Department was greater than 2 hours. jl7 Patient's length of stay was extended due to no available ICU beds in the hospital. Due to and pt refusal to be transferred to appropriate facilityPatient's length of stay extended due to 12/29 16:25 Patient left the ED. ll1 Signatures: Dispatcher [employer] EDMS Jaxon Vázquez MD MD cha Attema, Lee, PLUM[employer] PIPE FITTING-C PLUMBER PIPE FITTING-Cla1 La Camara, RN RN tw2 Tyesha Tobin RN RN jl7 Derian Frey RN RN jMindy Jackson RN RN ap3 Sveta Avilez Lynsay RN RN ll1 Dereje Munguia RN wg Wood, Tiffany tw5 Mindy Schafer RN ap3 Corrections: (The following items were deleted from the chart) 12/18 07:28 06:04 IV Status: Completed infusion; IV Intake: 1000ml wg jl7 07 06:04 IV Status: Completed infusion; IV Intake: 1000ml wg jl7
--- NOTE | 2020-12-17 16:33 | EDPHYS ---
Physician Documentation [facility] Name: Earnest Baker Age: 70 yrs Sex: Female : 1950 Arrival Date: 12/17/2020 Time: 13:27 Bed 27 Private MD: TANVI Physician Jaxon Vázquez HPI: 12/17 16:23 This 70 yrs old Female presents to ER via EMS with complaints of alcoholic , malachi found down. 16:23 The patient presents with decreased range of motion, pain. The complaints affect the malachi right hip, right gluteal fold, right inner thigh and right upper thigh. Context: The problem was sustained at home. Onset: The symptoms/episode began/occurred 2 day(s) ago. Modifying factors: The symptoms are alleviated by nothing. the symptoms are aggravated by movement. Associated signs and symptoms: Pertinent positives: nausea, weakness. obese alcoholic, low bp, dry mm, a and o x3. The patient has experienced near-syncope. Duration: This was a single episode, that is still ongoing. The patient presents with dizziness, feeling faint, generalized weakness, lightheadedness. Historical: - Allergies: 14:17 No Known Allergies; jl7 - PMHx: 14:17 COPD; Hypertension; jl7 - Immunization history:: Client reports receiving the 2nd dose of the Covid vaccine. - Social history:: Patient uses alcohol, on a daily basis. patient/guardian reports recent binge of alcohol consumption. Smoking status: unknown. - Immunization history: Last tetanus immunization: unknown. - Family history:: not pertinent. ROS: 16:23 Constitutional: Negative for fever, chills, and weight loss, Eyes: Negative for injury, malachi pain, redness, and discharge, ENT: Negative for injury, pain, and discharge, Neck: Negative for injury, pain, and swelling, Cardiovascular: Negative for chest pain, palpitations, and edema, Respiratory: Negative for shortness of breath, cough, wheezing, and pleuritic chest pain, Back: Negative for injury and pain, : Negative for injury, bleeding, discharge, and swelling, Skin: Negative for injury, rash, and discoloration, Psych: Negative for depression, anxiety, suicide ideation, homicidal ideation, and hallucinations, Allergy/Immunology: Negative for hives, rash, and allergies, Endocrine: Negative for neck swelling, polydipsia, polyuria, polyphagia, and marked weight changes, Hematologic/Lymphatic: Negative for swollen nodes, abnormal bleeding, and unusual bruising. 16:23 Cardiovascular: Negative for chest pain. 16:23 Respiratory: Positive for cough, shortness of breath, at rest. 16:23 Abdomen/GI: Positive for abdominal distension. 16:23 Back: Positive for decreased range of motion, pain at rest, pain with movement, of the lumbar area. 16:23 MS/extremity: Positive for decreased range of motion, pain, tenderness, of the right leg. Exam: 16:23 Constitutional: This is a well developed, well nourished patient who is awake, alert, malachi and in no acute distress. Head/Face: Normocephalic, atraumatic. Eyes: Pupils equal round and reactive to light, extra-ocular motions intact. Lids and lashes normal. Conjunctiva and sclera are non-icteric and not injected. Cornea within normal limits. Periorbital areas with no swelling, redness, or edema. Neck: Trachea midline, no thyromegaly or masses palpated, and no cervical lymphadenopathy. Supple, full range of motion without nuchal rigidity, or vertebral point tenderness. No Meningismus. Chest/axilla: Normal chest wall appearance and motion. Nontender with no deformity. No lesions are appreciated. Cardiovascular: Regular rate and rhythm with a normal S1 and S2. No gallops, murmurs, or rubs. Normal PMI, no JVD. No pulse deficits. Abdomen/GI: Soft, non-tender, with normal bowel sounds. No distension or tympany. No guarding or rebound. No evidence of tenderness throughout. Female : Normal external genitalia. Neuro: Awake and alert, GCS 15, oriented to person, place, time, and situation. Cranial nerves II-XII grossly intact. Motor strength 5/5 in all extremities. Sensory grossly intact. Cerebellar exam normal. Normal gait. Psych: Awake, alert, with orientation to person, place and time. Behavior, mood, and affect are within normal limits. 16:23 ENT: Mouth: Oral mucosa: dry, Tongue: is elevated, Posterior pharynx: no acute changes, Airway: normal, no evidence of obstruction. 16:23 ECG was reviewed by the Attending Physician. Vital Signs: 13:21 Pulse 62; Resp 19; Temp 98.7; Weight 113.4 kg (R); jl7 13:21 BP 104 / 92; Pulse 62; Resp 20; Temp 98.9; Pulse Ox 97% ; jl7 14:00 BP 112 / 59; Pulse 73; Resp 16; Pulse Ox 99% on R/A; jl7 14:45 BP 120 / 95; Pulse 75; Resp 22; Pulse Ox 99% ; jl7 15:02 Pulse 61; Resp 20; Pulse Ox 94% on R/A; ap3 15:30 BP 101 / 79; Pulse 75; Resp 19; Pulse Ox 99% ; jl7 16:30 BP 92 / 62; Pulse 77; Resp 20; Pulse Ox 100% ; jl7 17:30 BP 90 / 56; Pulse 75; Resp 15; Pulse Ox 100% ; jl7 20:19 BP 104 / 47; Pulse 68; Resp 18; Temp 97.8; Pulse Ox 98% on R/A; Pain 5/10; wg [place] Coma Score: 13:21 Eye Response: to voice(3). Verbal Response: oriented(5). Motor Response: obeys jl7 commands(6). Total: 14. 14:45 Eye Response: spontaneous(4). Verbal Response: oriented(5). Motor Response: obeys jl7 commands(6). Total: 15. 15:30 Eye Response: spontaneous(4). Verbal Response: oriented(5). Motor Response: obeys jl7 commands(6). Total: 15. 16:30 Eye Response: spontaneous(4). Verbal Response: oriented(5). Motor Response: obeys jl7 commands(6). Total: 15. 17:30 Eye Response: spontaneous(4). Verbal Response: oriented(5). Motor Response: obeys jl7 commands(6). Total: 15. 12/21 09:21 Eye Response: to pain(2). Verbal Response: incomprehensible(2). Motor Response: tw5 localizes pain(5). Total: 9. Trauma Score (Adult): 12/17 13:21 Eye Response: to voice(0); Verbal Response: oriented(1); Motor Response: obeys jl7 commands(2); Systolic BP: > 89 mm Hg(4); Respiratory Rate: 10 to 29 per min(4); Trudy Score: 14; Trauma Score: 11 MDM: 13:30 Patient medically screened. malachi 16:29 Differential diagnosis: closed fracture, contusion. Differential Diagnosis altered malachi mental status, sepsis. Differential Diagnosis: cardiac arrhythmia, cerebrovascular accident, GI bleed, sepsis, vasovagal episode, cardiac arrhythmia, CVA, generalized weakness, GI bleed, head injury, hypovolemia, idiopathic dizziness, near-syncope, sepsis, TIA. Data reviewed: vital signs, nurses notes, EMS record, lab test result(s), EKG, radiologic studies, CT scan, plain films. Data interpreted: quality assurance monitor: rate is 61 beats/min, Pulse oximetry: on room air. Test interpretation: by ED physician or midlevel provider: ECG, plain radiologic studies. Counseling: I had a detailed discussion with the patient and/or guardian regarding: the historical points, exam findings, and any diagnostic results supporting the discharge/admit diagnosis, lab results, radiology results, the need to transfer to another facility. 12/17 13:34 Order name: Basic Metabolic Panel [facility] 12/17 13:34 Order name: CBC with Diff [facility] 12/17 13:34 Order name: LFT's; Complete Time: 15:27 [facility] 12/17 13:34 Order name: Magnesium; Complete Time: 15:27 [facility] 12/17 13:34 Order name: NT PRO-BNP; Complete Time: 15:27 [facility] 12/17 13:34 Order name: PT-INR; Complete Time: 15:25 [facility] 12/17 13:34 Order name: Troponin (emerg Dept Use Only); Complete Time: 15:27 [facility] 12/17 13:34 Order name: CK; Complete Time: 15:27 [facility] 12/17 13:34 Order name: Ckmb; Complete Time: 15:27 [facility] 12/17 13:34 Order name: Lipase; Complete Time: 15:27 [facility] 12/17 13:34 Order name: Urine Culture; Complete Time: 16:46 [facility] 12/17 13:34 Order name: Lactate; Complete Time: 15:25 [facility] 12/17 13:34 Order name: Blood Culture Adult (2); Complete Time: 16:46 [facility] 12/17 13:34 Order name: Acetaminophen; Complete Time: 15:27 [facility] 12/17 13:34 Order name: ETOH Level; Complete Time: 15:25 [facility] 12/17 13:34 Order name: Ptt, Activated; Complete Time: 15:25 [facility] 12/17 13:34 Order name: Salicylate; Complete Time: 15:25 [facility] 12/17 13:34 Order name: Urine Drug Screen; Complete Time: 15:25 [facility] 12/17 13:35 Order name: Basic Metabolic Panel; Complete Time: 15:27 [facility] 12/17 13:35 Order name: CBC with Automated Diff; Complete Time: 16:13 [facility] 12/17 13:57 Order name: AMMONIA [facility] 12/17 13:57 Order name: Ammonia; Complete Time: 15:25 [facility] 12/17 14:22 Order name: ABG; Complete Time: 16:13 [facility] 12/17 14:40 Order name: CBC Smear Scan; Complete Time: 16:13 [facility] 12/17 16:14 Order name: Osmolality, Serum [facility] 12/17 16:14 Order name: Urine Osmolality; Complete Time: 19:03 [facility] 12/17 16:14 Order name: Urine Sodium Random; Complete Time: 17:20 [facility] 12/17 16:14 Order name: Osmolality, Serum; Complete Time: 19:03 [facility] 12/17 16:18 Order name: Chem 7: repeat; Complete Time: 17:20 12/17 16:26 Order name: SARS-COV-2 RT PCR; Complete Time: 17:26 [facility] 12/17 18:36 Order name: Lactate Sepsis 2 HR Follow-up; Complete Time: 18:46 [facility] 12/17 20:50 Order name: BMP la1 12/17 21:32 Order name: Basic Metabolic Panel; Complete Time: 22:37 [facility] 12/18 00:29 Order name: Troponin I; Complete Time: 16:46 [facility] 12/18 01:20 Order name: ABG la1 12/18 01:44 Order name: ABG Arterial Blood Gas; Complete Time: 16:46 [facility] 12/18 02:47 Order name: Basic Metabolic Panel; Complete Time: 16:46 [facility] 12/18 02:48 Order name: Lactate; Complete Time: 16:46 [facility] 12/18 05:06 Order name: CBC with Automated Diff; Complete Time: 16:46 [facility] 12/18 05:32 Order name: Lactate; Complete Time: 16:46 [facility] 12/18 05:55 Order name: Basic Metabolic Panel; Complete Time: 16:46 [facility] 12/18 05:55 Order name: Creatine Phosphokinase; Complete Time: 16:46 [facility] 12/18 05:55 Order name: CKMB Creatine Kinase MB; Complete Time: 16:46 [facility] 12/18 05:55 Order name: Lipid Profile; Complete Time: 16:46 [facility] 12/18 05:55 Order name: T4 Free; Complete Time: 16:46 [facility] 12/18 05:55 Order name: Magnesium; Complete Time: 16:46 [facility] 12/18 05:55 Order name: Thyroid Stimulating Hormone; Complete Time: 16:46 [facility] 12/18 05:59 Order name: Procalcitonin; Complete Time: 16:46 [facility] 12/18 05:59 Order name: Ammonia; Complete Time: 16:46 [facility] 12/18 06:05 Order name: Troponin I; Complete Time: 16:46 [facility] 12/18 08:35 Order name: Lactate Sepsis 2 HR Follow-up; Complete Time: 16:46 [facility] 12/18 09:54 Order name: Basic Metabolic Panel; Complete Time: 16:46 [facility] 12/18 10:32 Order name: Gram Stain--Aerobic Bottle; Complete Time: 16:46 [facility] 12/18 10:32 Order name: Gram Stain--Anaerobic Bottle; Complete Time: 16:46 [facility] 12/18 13:51 Order name: Basic Metabolic Panel; Complete Time: 16:46 [facility] 12/18 15:06 Order name: UR POTASSIUM; Complete Time: 16:46 [facility] 12/18 15:18 Order name: Ur Protein; Complete Time: 16:46 [facility] 12/18 15:18 Order name: UR SODIUM; Complete Time: 16:46 [facility] 12/18 15:30 Order name: Cortisol; Complete Time: 16:46 [facility] 12/18 16:22 Order name: Urinalysis; Complete Time: 16:46 [facility] 12/18 16:32 Order name: Urine Microscopic Only; Complete Time: 16:46 [facility] 12/18 22:07 Order name: Osmolality, Serum; Complete Time: 16:46 [facility] 12/19 04:58 Order name: CBC with Automated Diff; Complete Time: 16:46 [facility] 12/19 05:09 Order name: Ammonia; Complete Time: 16:46 [facility] 12/19 05:48 Order name: Renal Panel; Complete Time: 16:46 [facility] 12/19 05:48 Order name: Uric Acid; Complete Time: 16:46 [facility] 12/19 05:48 Order name: Creatine Phosphokinase; Complete Time: 16:46 [facility] 12/19 05:48 Order name: CKMB Creatine Kinase MB; Complete Time: 16:46 [facility] 12/19 05:48 Order name: Magnesium; Complete Time: 16:46 [facility] 12/19 06:20 Order name: PTH Intact; Complete Time: 16:46 [facility] 12/19 09:36 Order name: Alcohol Serum/Plasma; Complete Time: 16:46 [facility] 12/19 09:54 Order name: Comprehensive Metabolic Panel; Complete Time: 16:46 [facility] 12/19 09:58 Order name: ABG Arterial Blood Gas; Complete Time: 16:46 [facility] 12/19 10:58 Order name: Osmolality, Serum; Complete Time: 16:46 [facility] 12/19 11:58 Order name: Urinalysis W/Microscopic; Complete Time: 16:46 [facility] 12/19 12:12 Order name: ABG Arterial Blood Gas; Complete Time: 16:46 [facility] 12/19 15:02 Order name: Miscellaneous Test Lab; Complete Time: 16:46 [facility] 12/19 15:03 Order name: Miscellaneous Test Lab; Complete Time: 16:46 [facility] 12/19 22:20 Order name: Basic Metabolic Panel; Complete Time: 16:46 [facility] 12/20 01:13 Order name: Vancomycin Level Trough; Complete Time: 16:46 [facility] 12/20 05:34 Order name: CBC with Automated Diff; Complete Time: 16:46 [facility] 12/20 06:10 Order name: Comprehensive Metabolic Panel; Complete Time: 16:46 [facility] 12/20 06:10 Order name: Renal Panel; Complete Time: 16:46 [facility] 12/20 06:10 Order name: Creatine Phosphokinase; Complete Time: 16:46 [facility] 12/20 06:10 Order name: CKMB Creatine Kinase MB; Complete Time: 16:46 [facility] 12/20 06:10 Order name: Magnesium; Complete Time: 16:46 [facility] 12/20 06:35 Order name: Manual Differential; Complete Time: 16:46 [facility] 12/20 06:39 Order name: ABG Arterial Blood Gas; Complete Time: 16:46 [facility] 12/20 14:10 Order name: Blood Culture [facility] 12/20 15:24 Order name: Lactic Dehydrogenase; Complete Time: 16:46 [facility] 12/20 15:24 Order name: Transferrin Sat/Iron Binding; Complete Time: 16:46 [facility] 12/20 15:24 Order name: Ferritin; Complete Time: 16:46 [facility] 12/20 15:24 Order name: Vitamin B12 Level; Complete Time: 16:46 [facility] 12/20 16:18 Order name: ABG Arterial Blood Gas; Complete Time: 16:46 [facility] 12/20 18:18 Order name: CORTISOL--BASE; Complete Time: 16:46 [facility] 12/20 18:31 Order name: CORTISOL--30MIN; Complete Time: 16:46 [facility] 12/20 19:12 Order name: CORTISOL--60MIN; Complete Time: 16:46 [facility] 12/20 19:37 Order name: CORTISOL--90MIN; Complete Time: 16:46 [facility] 12/21 05:30 Order name: Phosphorus; Complete Time: 16:46 [facility] 12/21 05:46 Order name: CBC with Automated Diff; Complete Time: 16:46 [facility] 12/21 05:46 Order name: Comprehensive Metabolic Panel; Complete Time: 16:46 [facility] 12/21 05:46 Order name: Renal Panel; Complete Time: 16:46 [facility] 12/21 05:46 Order name: Magnesium; Complete Time: 16:46 [facility] 12/21 06:53 Order name: Blood Culture; Complete Time: 16:46 [facility] 12/21 07:10 Order name: ABG Arterial Blood Gas; Complete Time: 16:46 [facility] 12/21 09:48 Order name: Cortisol; Complete Time: 16:46 [facility] 12/22 05:19 Order name: Lactate; Complete Time: 16:46 [facility] 12/22 05:24 Order name: CBC with Automated Diff; Complete Time: 16:46 [facility] 12/22 05:30 Order name: Ammonia; Complete Time: 16:46 [facility] 12/22 05:31 Order name: Sedimentation Rate, [place]; Complete Time: 16:46 [facility] 12/22 05:39 Order name: Comprehensive Metabolic Panel; Complete Time: 16:46 [facility] 12/22 05:39 Order name: Phosphorus; Complete Time: 16:46 [facility] 12/22 05:39 Order name: NT PRO-BNP; Complete Time: 16:46 [facility] 12/22 05:39 Order name: C-Reactive Protein; Complete Time: 16:46 [facility] 12/22 05:39 Order name: T4 Free; Complete Time: 16:46 [facility] 12/22 05:39 Order name: Magnesium; Complete Time: 16:46 [facility] 12/22 05:39 Order name: Lipase; Complete Time: 16:46 [facility] 12/22 05:39 Order name: Thyroid Stimulating Hormone; Complete Time: 16:46 [facility] 12/22 05:39 Order name: Iron; Complete Time: 16:46 [facility] 12/22 05:39 Order name: Folic Acid, (Folate); Complete Time: 16:46 [facility] 12/22 05:57 Order name: ABG Arterial Blood Gas; Complete Time: 16:46 [facility] 12/22 06:09 Order name: Procalcitonin; Complete Time: 16:46 [facility] 12/22 14:41 Order name: Creatine Phosphokinase; Complete Time: 16:46 [facility] 12/22 14:44 Order name: ABG Arterial Blood Gas; Complete Time: 16:46 [facility] 12/22 21:45 Order name: Vitamin D,1,25 Dihydroxy; Complete Time: 16:46 [facility] 12/17 13:34 Order name: XRAY Chest (1 view); Complete Time: 16:40 [facility] 12/17 13:34 Order name: EKG; Complete Time: 13:36 [facility] 12/17 13:34 Order name: Cardiac monitoring; Complete Time: 13:42 [facility] 12/17 13:34 Order name: EKG - Nurse/Tech; Complete Time: 16:49 [facility] 12/17 13:34 Order name: IV Saline Lock; Complete Time: 14:26 [facility] 12/17 13:34 Order name: Labs collected and sent; Complete Time: 14:26 [facility] 12/17 13:34 Order name: O2 Per Protocol; Complete Time: 13:42 [facility] 12/17 13:34 Order name: O2 Sat Monitoring; Complete Time: 13:42 [facility] 12/17 13:34 Order name: Lo; Complete Time: 13:42 [facility] 12/17 13:34 Order name: CT Traumagram (Head C Spine CAP wo con); Complete Time: 15:25 [facility] 12/17 13:34 Order name: Urine Dipstick-Ancillary (obtain specimen); Complete Time: 14:26 [facility] 12/17 13:34 Order name: Pelvis XRAY; Complete Time: 16:40 [facility] 12/17 13:34 Order name: Suicide Screening ([place]); Complete Time: 13:42 [facility] 12/17 13:34 Order name: IV Saline Lock - Large Bore; Complete Time: 15:12 [facility] 12/17 15:27 Order name: Central Line Kit; Complete Time: 16:33 [facility] 12/17 16:24 Order name: Tib Fib Right XRAY; Complete Time: 18:46 eb 12/17 16:24 Order name: Femur Right XRAY; Complete Time: 18:46 eb 12/17 19:03 Order name: Misc. Order: repeat BMP \T\ 1999; Complete Time: 07:28 la1 12/18 08:52 Order name: RAD; Complete Time: 16:47 [facility] 12/18 10:01 Order name: US; Complete Time: 16:47 [facility] 12/19 07:26 Order name: RAD; Complete Time: 16:47 [facility] 12/19 17:06 Order name: MRI; Complete Time: 16:47 [facility] 12/20 14:02 Order name: RAD; Complete Time: 16:47 [facility] 12/22 13:52 Order name: RAD; Complete Time: 16:47 [facility] 12/22 16:01 Order name: RAD; Complete Time: 16:47 [facility] 12/23 06:50 Order name: Renal Panel; Complete Time: 16:46 [facility] 12/23 06:50 Order name: Magnesium; Complete Time: 16:46 [facility] 12/23 10:57 Order name: ABG Arterial Blood Gas; Complete Time: 16:46 [facility] 12/23 15:49 Order name: Hepatitis Panel,Acute; Complete Time: 16:47 [facility] 12/23 21:35 Order name: Haptoglobin; Complete Time: 16:46 [facility] 12/24 05:25 Order name: CBC with Automated Diff; Complete Time: 16:46 [facility] 12/24 05:29 Order name: Comprehensive Metabolic Panel; Complete Time: 16:46 [facility] 12/24 05:29 Order name: Phosphorus; Complete Time: 16:47 [facility] 12/24 05:29 Order name: Magnesium; Complete Time: 16:47 [facility] 12/24 06:07 Order name: ABG Arterial Blood Gas; Complete Time: 16:46 [facility] 12/24 08:52 Order name: Manual Differential; Complete Time: 16:46 [facility] 12/24 08:56 Order name: ABG Arterial Blood Gas; Complete Time: 16:46 [facility] 12/24 12:48 Order name: ABG Arterial Blood Gas; Complete Time: 16:46 [facility] 12/24 17:34 Order name: ACTH Baseline; Complete Time: 16:47 [facility] 12/24 17:35 Order name: ACTH Baseline; Complete Time: 16:47 [facility] 12/25 00:11 Order name: Glucose, Ancillary Testing; Complete Time: 16:46 [facility] 12/25 05:21 Order name: CBC with Automated Diff; Complete Time: 16:46 [facility] 12/25 05:31 Order name: Comprehensive Metabolic Panel; Complete Time: 16:46 [facility] 12/25 05:31 Order name: Renal Panel; Complete Time: 16:47 [facility] 12/25 06:14 Order name: Vitamin D, 25 (OH), TOTAL; Complete Time: 16:46 [facility] 12/25 17:21 Order name: Glucose, Ancillary Testing [facility] 12/25 17:23 Order name: Glucose, Ancillary Testing [facility] 12/26 05:27 Order name: CBC with Automated Diff [facility] 12/26 05:30 Order name: Ammonia [facility] 12/26 05:40 Order name: Comprehensive Metabolic Panel [facility] 12/26 05:40 Order name: Creatine Phosphokinase [facility] 12/26 05:40 Order name: NT PRO-BNP [facility] 12/26 05:40 Order name: Magnesium [facility] 12/26 05:56 Order name: Cortisol [facility] 12/26 06:08 Order name: Procalcitonin [facility] 12/26 07:55 Order name: Glucose, Ancillary Testing [facility] 12/26 08:40 Order name: CT EDMS 12/26 09:32 Order name: RAD EDMS 12/26 09:55 Order name: RAD EDMS 12/26 12:40 Order name: Glucose, Ancillary Testing EDMS 12/26 14:06 Order name: RAD EDMS 12/26 16:58 Order name: Glucose, Ancillary Testing ED[facility] 12/26 20:02 Order name: REILLY IFA Screen w/Reflex [facility] 12/26 20:31 Order name: REILLY, Titer and Pattern [facility] 12/27 12:13 Order name: Glucose, Ancillary Testing [facility] 12/27 12:14 Order name: CBC with Automated Diff [facility] 12/27 12:14 Order name: Comprehensive Metabolic Panel [facility] 12/27 12:14 Order name: Magnesium ED[facility] 12/27 12:14 Order name: ABG Arterial Blood Gas [facility] 12/27 12:14 Order name: Glucose, Ancillary Testing EDMS 12/27 16:59 Order name: Glucose, Ancillary Testing ED[facility] 12/28 00:41 Order name: Glucose, Ancillary Testing ED[facility] 12/28 06:15 Order name: ABG Arterial Blood Gas [facility] 12/28 06:23 Order name: CBC with Automated Diff [facility] 12/28 06:36 Order name: Comprehensive Metabolic Panel [facility] 12/28 06:36 Order name: Magnesium EDMS 12/28 08:42 Order name: Urine Culture [facility] 12/28 10:27 Order name: Glucose, Ancillary Testing EDMS 12/28 12:57 Order name: RAD EDMS 12/28 13:15 Order name: Glucose, Ancillary Testing EDMS 12/28 13:17 Order name: RAD EDMS 12/28 13:55 Order name: ABG Arterial Blood Gas ED[facility] 12/28 18:18 Order name: Glucose, Ancillary Testing EDMS 12/29 00:22 Order name: Glucose, Ancillary Testing ED[facility] 12/29 05:39 Order name: Comprehensive Metabolic Panel [facility] 12/29 05:39 Order name: Magnesium ED[facility] 12/29 05:47 Order name: CBC with Automated Diff [facility] 12/29 06:49 Order name: CBC Smear Scan [facility] 12/29 07:35 Order name: RAD [facility] 12/29 12:45 Order name: Glucose, Ancillary Testing ED[facility] EC:23 Rate is 81 beats/min. Rhythm is regular. QRS [place] is Normal. QRS interval is normal. QT malachi interval is normal. No Q waves. T waves are Peaked in leads II, III, aVF, V3, V4, V5, V6. No ST changes noted. Clinical impression: Normal ECG, Suggests hyperkalemia, and No evidence of ischemia. Interpreted by me. Reviewed by me. Administered Medications: 14:00 Drug: Pepcid (famotidine) 20 mg Route: IVP; Site: right antecubital; [facility] 14:10 Follow up: Response: No adverse reaction [facility] 14:00 Drug: Thiamine 100 mg Route: IV; Rate: bolus; Site: right antecubital; jl7 14:10 Follow up: Response: No adverse reaction; IV Status: Completed infusion jl7 14:25 Drug: Cefepime 1 grams Route: IVPB; Rate: 200 ml/hr; Infused Over: 30 mins; Site: right ap3 antecubital; 14:55 Follow up: Response: No adverse reaction; IV Status: Completed infusion jl7 14:26 Drug: NS 0.9% 1000 ml Route: IV; Rate: 1 bolus; Site: right antecubital; ap3 15:30 Follow up: Response: No adverse reaction; IV Status: Completed infusion; IV Intake: jl7 1000ml 14:26 Drug: NS 0.9% 1000 ml Route: IV; Rate: 1 bolus; Site: right antecubital; ap3 16:00 Follow up: Response: No adverse reaction; IV Status: Completed infusion; IV Intake: jl7 1000ml 15:11 Drug: Banana Bag - (NS 0.9% 1000 ml, foLIC Acid 1 mg, Thiamine 100 mg, Multivitamin 1 ap3 amp) Route: IV; Rate: 150 ml/hr; Site: left wrist; 17:19 Follow up: Response: No adverse reaction; IV Status: Infusion continued upon transfer jl7 15:35 Drug: Calcium Gluconate 1 grams Route: IVPB; Infused Over: 10 mins; Site: right jl7 antecubital; 16:38 Follow up: IV Status: Completed infusion ap3 15:45 Drug: D50W 50 ml Route: IVP; Site: right antecubital; jl7 17:16 Follow up: Response: No adverse reaction jl7 15:50 Drug: Insulin Regular Human 10 units {Co-Signature: ap3 (Mindy Schafer RN).} Route: jl IVP; Site: right antecubital; 17:16 Follow up: Response: No adverse reaction jl7 15:52 Drug: Sodium Bicarbonate 1 amp Route: IVP; Site: right antecubital; jl7 17:16 Follow up: Response: No adverse reaction jl7 16:00 Drug: Kayexalate (polystyrene) 45 grams Route: PO; jl7 17:16 Follow up: Response: No adverse reaction jl7 16:34 Drug: NS 0.9% 1000 ml Route: IV; Rate: 1 bolus; Site: right femoral; jl7 19:02 Follow up: Response: No adverse reaction; IV Status: Completed infusion; IV Intake: jl7 1000ml 16:36 Drug: Albuterol - atroVENT (ipratropium) (3:1) (2.5 mg - 0.5 mg) 3 ml Route: Nebulizer; jl7 17:17 Follow up: Response: No adverse reaction jl7 16:50 Drug: Solu-CORTEF (hyrdoCORTISONE) 100 mg Route: IVP; Site: right wrist; ap3 17:16 Follow up: Response: No adverse reaction jl7 16:51 Drug: vancoMYCIN 1 grams Route: IVPB; Infused Over: 2 hrs; Site: right femoral; ap3 17:21 Follow up: Response: No adverse reaction; IV Status: Infusion continued upon transfer jl7 17:27 Not Given (Duplicate Order): fentaNYL (PF) 25 mcg IVP once; RASS on ADMIN: Combtv4, malachi Very Agttd3, Agttd2, Rstlss1, AlertClm0, Drwsy-1, Lt Sdtn-2, Mod Sdtn-3, Dp Sdtn-4, UnArsble-5 18:22 Drug: NS 0.9% 1000 ml Route: IV; Rate: 1 bolus; Site: right femoral; ap3 19:00 Follow up: Response: No adverse reaction; IV Status: Completed infusion; Order to [facility] discontinue infusion; IV Intake: 800ml 18:23 Drug: fentaNYL (PF) 25 mcg {Note: rass0.} Route: IVP; Site: right femoral; ap3 18:52 Follow up: Response: No adverse reaction; Pain is decreased jl7 18:23 Drug: Zofran (Ondansetron) 4 mg Route: IVP; Site: right femoral; ap3 18:53 Follow up: Response: No adverse reaction jl7 18:52 Drug: NS 0.9% 1000 ml Route: IV; Rate: 1 bolus; Site: right femoral; ap3 19:00 Follow up: IV Status: Completed infusion; Order to discontinue infusion; IV Intake: jl7 100ml 19:43 Drug: NS 0.45 % 1000 ml Route: IV; Rate: 100 ml/hr; Site: right femoral; 12/18 06:03 Follow up: IV Status: Completed infusion; IV Intake: 1000ml wg Disposition Summary: 12/17/20 18:11 Hospitalization Ordered Hospitalization Status: Inpatient Admission malachi Condition: Serious(12/17/20 18:11) malachi Problem: new(12/17/20 18:11) malachi Symptoms: have improved(12/17/20 18:11) malachi Bed/Room Type: Standard malachi Provider: Apollo Mix(12/17/20 18:11) laAdalberto Location: [facility] ER HOLD(12/18/20 00:21) cg Room Assignment: ERHOLD-(12/18/20 00:28) cg Diagnosis - Hypotension, unspecified malachi - Acute kidney failure, unspecified(12/17/20 18:11) malachi - Hyperkalemia(12/17/20 18:11) malachi - COPD/ Chronic obstructive pulmonary disease with (acute) exacerbation malachi - Morbid (severe) obesity due to excess calories malachi - Alcohol abuse(12/17/20 18:11) malachi - Alcohol abuse with intoxication malachi - Fall on same level, unspecified malachi - Pain in right lower leg malachi - Cellulitis and acute lymphangitis of other parts of limb - thigh malachi - Severe sepsis without septic shock(12/17/20 18:37) malachi Forms: - Medication Reconciliation Form malachi - SBAR form malachi Signatures: Dispatcher [employer] EDMS Jaxon Vázquez MD MD cha Mickail, Joel, PA PA Juan Hankins, INCINERATOR OPERATOR-C INCINERATOR OPERATOR-Cla1 Marcy Pratt RN RN cg Tyesha Tobin RN RN jl7 Mindy Schafer RN RN ap3 Dereje Munguia RN Mindy Schafer RN ap3 Corrections: (The following items were deleted from the chart) 12/17 16:26 13:36 CORONAVIRUS+MR.LAB.BRZ ordered. EDMS EDMS 18:07 16:33 to icu malachi malachi 18:07 16:33 [facility] malachi malachi 18:07 16:33 Higher level of care malachi malachi 18:07 16:33 Serious malachi malachi 18:07 16:33 new malachi malachi 18:07 16:33 have improved malachi malachi 18:07 16:33 Weakness malachi malachi 18:07 16:33 Severe sepsis without septic shock malachi malachi 18:07 16:33 Alcohol dependence malachi malachi 18:07 16:33 Alcohol abuse malachi malachi 18:07 16:33 Acute kidney failure, unspecified malachi malachi 18:07 16:33 Hyperkalemia malachi malachi 18:07 16:33 Morbid (severe) obesity with alveolar hypoventilation malachi maalchi 18:11 18:11 Edgar Galvez malachi la1 19:27 18:11 Intensive Care Unit malachi cg 19:27 18:11 malachi cg 12/18 00:21 12/17 19:27 [facility] ER HOLD cg cg 12/18 00:21 12/17 19:27 ERHOLD- cg cg 12/18 00:28 00:21 cg cg
[2020-12-17] MEDS ORDERED: HYDROCORTISONE SUC 100 MG INJ ONE (17:08)
[2020-12-17 17:11] LABS: Potassium 5.6 mmol/L (3.5-5.1)
--- NOTE | 2020-12-17 18:37 | RAD REPORT ---
EXAM DESCRIPTION: RAD - Tib Fib Right - 12/17/2020 4:52 pm CLINICAL HISTORY: PAIN, fall with leg pain COMPARISON: <Comparisons> FINDINGS: No fracture is identified. There is no dislocation or periosteal reaction noted. No acute or suspicious bony finding. Knee joint degenerative changes are present. No foreign body or other soft tissue abnormality. IMPRESSION: Negative right tibia & fibula examination for acute finding.
--- NOTE | 2020-12-17 18:39 | RAD REPORT ---
EXAM DESCRIPTION: RAD - Femur Right - 12/17/2020 4:52 pm CLINICAL HISTORY: PAIN, fall COMPARISON: No comparisonsNo comparisonsNo comparisons FINDINGS: No fracture, dislocation or periosteal reaction noted. No acute or suspicious bony finding . Hip joint degenerative changes are present. Right femoral vascular access catheter is in place. Deg enerative changes are knee joint. No air or foreign body in the soft tissues. Very large amount of soft tissue limits detail on this ex amination. Detail at the hip joint is substantially reduced. IMPRESSION: Limited right femur examination shows no acute finding.
[2020-12-17] MEDS ORDERED: FENTANYL CITR 100 MCG/2 ML ONE (18:42)
[2020-12-17] MEDS ORDERED: ONDANSETRON 4 MG/2 ML VIAL ONE ×2 (18:43→23:16)
[2020-12-17] MEDS ORDERED: NA CHLORIDE 0.9% 1,000 ML ONE (19:02)
--- NOTE | 2020-12-17 19:45 | P.HP ---
Certification for Inpatient Patient admitted to: Inpatient With expected LOS: >2 Midnights Patient will require the following post-hospital care: None Practitioner: I am a practitioner with admitting privileges, knowledge of patient current condition, hospital course, and medical plan of care. Services: Services provided to patient in accordance with Admission requirements found in Title 42 Section 412.3 of the Code of Federal Regulations Patient History Date of Service: 12/17/20 Primary Care Provider: Dr. Barrera Reason for admission: Acute renal failure, hypotension, hyponatremia History of Present Illness: 70-year-old female with history of hypertension, COPD, hypothyroidism presented to the emergency department for weakness, fall injury. reports that he left for work around 600 and came home around noon and found patient down on the floor with right leg bent behind her. reports that she has been binge drinking whiskey the past 2 weeks, approximately 5 bottles over the course of the last 2 weeks. Patient was found covered in dried fecal matter further work-up in the emergency department revealed labs significant for sodium 120 potassium 7 chloride 80 bicarb 17 BUN 85 creatinine 2.57 GFR 18 lactic acid 5.4 CPK 2995 CK-MB 17.4 magnesium 3.0T bili 2.4D bili 1.8 AST 202 ALT 98 alk phos 210 ammonia 56 alcohol level 79. Patient oriented x3 at this time, transfer was initiated to [facility] for ICU bed/higher level of care given acute renal failure/liver injury/hyponatremia/hypotension. Patient adamantly refuses transfer to another facility states that under no circumstances does she want to leave this hospital. Patient again oriented x3, spoke with patient at length concerning the fact that we do not have ICU bed or staffing, if she were to require dialysis and was still hypotensive we would not be able to perform this and she would benefit best from higher level of care. Patient again adamantly refuses and is oriented. Patient's at bedside and has called to discuss with other family members who are all in agreement they would prefer patient be transferred but she refuses. Patient was given sepsis fluid bolus in the emergency department labs were repeated there was some improvement with sodium 126 potassium 5.6 chloride 87 bicarb 18 BUN 80 creatinine 2.41. Lactic acid was initially 5.4 and increased to 5.6. Case was discussed with nephrology, will switch fluids to half-normal saline and admit to ICU for further evaluation and management. Allergies No Known Allergies Allergy (Verified 12/07/19 09:23) Home Medications: Hydrocodone Bit/Acetaminophen [[place] 7.5-325 Tablet] 1 each PO TID 03/15/18 Levothyroxine Sodium 50 mcg PO DAILY 03/15/18 Lidocaine 4% Patch [Lidoderm 5% Patch*] 1 patch TOP DAILY PRN 03/15/18 Duloxetine HCl [Cymbalta] 60 mg PO DAILY 12/07/19 Montelukast Sodium [Singulair] 10 mg PO DAILY 12/07/19 Atorvastatin Calcium [Lipitor] 40 mg PO BEDTIME #30 tab 12/08/19 lisinopriL [Prinivil*] 10 mg PO DAILY #30 tab 12/08/19 - Past Medical/Surgical History Diabetic: No -: COPD -: Hypertension -: Chronic pain -: Major depressive disorder Past Surgical History: Unable to obtain Psychosocial/ Personal History: Unemployed,, lives at home with her - Family History Family History: Reviewed- Non-Contributory - Social History Smoking Status: Current every day smoker Counseled patient to stop smoking for: less than 10 minutes Smoking therapy provided: No (Patient refused) Alcohol use: Yes CD- Drugs: No Caffeine use: Yes Place of Residence: Home Review of Systems 10-point ROS is otherwise unremarkable General: Weakness, Malaise Musculoskeletal: Leg Pain (Right leg pain) Physical Examination - Physical Exam General: Alert, In no apparent distress, Oriented x3, Obese, Other (Unkempt) HEENT: Other (Mucous membranes dry) Neck: Supple Respiratory: Diminished Cardiovascular: No edema, Normal S1 S2 Capillary refill: <2 Seconds Gastrointestinal: Soft and benign, No tenderness, No masses, No rebound Musculoskeletal: No contractures, No erythema, No tenderness Integumentary: Erythema, Other (Area of excoriation to left thigh) Neurological: Normal speech, Normal strength at 5/5 x4 extr, Normal tone, Sensation intact - Studies Laboratory Data (last 24 hrs) 12/17/20 16:28: Sodium 126 L, Potassium 5.6 H*, BUN 80 H, Creatinine 2.41 H, Glucose 156 H 12/17/20 14:10: PT 9.9, INR 0.86, APTT 28.8 12/17/20 14:10: WBC 7.10, Hgb 14.1, Hct 41.1, Plt Count 160 12/17/20 14:10: Sodium 120 L, Potassium 7.0 H*, BUN 85 H, Creatinine 2.57 H, Glucose 93, Magnesium 3.0 H D, Total Bilirubin 2.4 H, AST 202 H, ALT 98 H, Alkaline Phosphatase 210 H, Lipase 94 Assessment and Plan - Plan Assessment: Rhabdomyolysis, acute renal failure: Hyponatremia: Acute liver injury secondary to alcohol abuse: Hypotension: Plan: Rhabdomyolysis, acute renal failure: Continue with IV fluids likely related to dehydration/prerenal. Complete abdominal ultrasound ordered. Nephrology consulted will monitor with labs. Monitor CPK levels daily. Hyponatremia: Case was discussed with nephrology, patient received 3 L normal saline fluid resuscitation in the emergency department sodium increased from 120-126, fluids switch to 0.5 NS, will monitor sodium level every 4 hours and aim for no more than 130. If sodium is greater than 130 may require D5W Acute liver injury secondary to alcohol abuse: Patient has been binge drinking approximately 5 bottles of whiskey over the course the last 2 weeks reports that she "has a lot on her mind". Patient denies suicidal ideations at this time. Will obtain ultrasound/hepatitis panel. EtOH withdrawal assessments and as needed Ativan. Hypotension currently with hypotension: Continue as above. Patient may require vasopressor therapy if blood pressure does not significantly improve, central line is in place. DVT PPX: Heparin Code status: Full Discharge Plan: Home Plan to discharge in: Greater than 2 days - Advance Directives Does patient have a Living Will: No Does patient have a Durable POA for Healthcare: No - Code Status/Comfort Care Code Status Assessed: Yes (Full code) Critical Care: No Time Spent Managing Pts Care (In Minutes): 65
[2020-12-17] MEDS ORDERED: NACHLORIDE 0.45% 1,000 ML IV ONE (19:57)
[2020-12-17 21:32] LABS: Potassium 5.7 mmol/L (3.5-5.1)
[2020-12-17] MEDS: HEPARIN 5000 UNIT/ML 1 ML VIAL SQ SCH (22:42)
[2020-12-17] MEDS: NACHLORIDE 0.45% 1,000 ML IV SCH (22:42)
[2020-12-17] MEDS: MORPHINE 2 MG/ML SYR IV PRN (22:59)
[2020-12-17] MEDS: LORazepam 2 MG/ML VIAL IV PRN (22:59)
[2020-12-17] MEDS: ONDANSETRON 4 MG/2 ML VIAL IV PRN (22:59)
[2020-12-17] MEDS ORDERED: VANCOMYCIN 1 GM in NA CHLORIDE 0.9% 250 ML IVPB ONE (23:00)
[2020-12-17] MEDS ORDERED: MORPHINE 2 MG/ML SYR ONE (23:15)
[2020-12-17] MEDS ORDERED: LORazepam 2 MG/ML VIAL ONE (23:15)
[2020-12-17] MEDS ORDERED: HEPARIN 5000 UNIT/ML 1 ML VIAL ONE (23:15)
[2020-12-18] MEDS ORDERED: NACHLORIDE 0.45% 1,000 ML IV ONE ×2 (00:29→08:15)
[2020-12-18] MEDS ORDERED: NOREPINEPHRINE 4mg/D5W 250mL 4 MG/250 ML BAG IV ONE ×2 (00:48→23:21)
[2020-12-18 01:40] LABS: Blood Gas Oxyhemoglobin 95.6 % (94-97); Blood O2 Saturation 97.6 % (92-98.5)
[2020-12-18 02:47] LABS: Potassium 5.8 mmol/L (3.5-5.1)
[2020-12-18 05:05] LABS: Absolute Lymphocytes (CBC) 0.2 K/uL (0.7-4.9); Basophils % 0.1 % (0-1.3); Hematocrit 40.9 % (36.0-45.0); Lymphocytes % 3.1 % (15.3-44.8); MPV 9.5 fL (7.6-11.3); RBC Red Blood Cell Count 4.17 M/uL (3.86-4.86)
[2020-12-18 05:53] LABS: Magnesium 2.5 mg/dL (1.8-2.4); Thyroid Stimulating Hormone 1.61 uIU/mL (0.360-3.740)
[2020-12-18 05:55] LABS: CKMB Creatine Kinase MB 44.9 ng/mL (1.0-3.6)
--- NOTE | 2020-12-18 06:26 | P.PN ---
Subjective Date of Service: 12/18/20 Primary Care Provider: Dr. Barrera Chief Complaint: Acute renal failure, hypotension, hyponatremia Subjective: Other (Patient requires BiPAP.) Physical Examination - Vital Signs Temperature: 98.7 F Blood Pressure: 101/73 Pulse: 90 Respirations: 25 Pulse Ox (%): 99 - Studies Laboratory Data (last 24 hrs) 12/17/20 16:28: Sodium 126 L, Potassium 5.6 H*, BUN 80 H, Creatinine 2.41 H, Glucose 156 H 12/17/20 14:10: PT 9.9, INR 0.86, APTT 28.8 12/17/20 14:10: WBC 7.10, Hgb 14.1, Hct 41.1, Plt Count 160 12/17/20 14:10: Sodium 120 L, Potassium 7.0 H*, BUN 85 H, Creatinine 2.57 H, Glucose 93, Magnesium 3.0 H D, Total Bilirubin 2.4 H, AST 202 H, ALT 98 H, Alkaline Phosphatase 210 H, Lipase 94 Assessment & Plan Discharge Plan: Home Plan to discharge in: Greater than 2 days Physician Review Additional Text: COVID: negative CXR: COMPARISON: December 2019 TECHNIQUE: AP portable chest image was obtained 12/17/2020 3:26 pm . FINDINGS: Lungs are clear. Heart and vasculature are normal. No measurable pleural effusion and no pneumothorax. No acute bony abnormality seen. No acute aortic findings suspected. IMPRESSION: No acute cardiopulmonary process. Pelvic xray: COMPARISON: PELVIS dated 12/06/2010 TECHNIQUE: AP imaging of the pelvis was obtained. FINDINGS: Exam has technical limitations due to very large body habitus affects and imaging technique. No gross fracture deformity of the pelvis. No fracture or dislocation of either proximal femur. No acute soft tissue finding seen. Lumbar degenerative change with left convex curvature noted. IMPRESSION: No fracture or acute finding identifiable. Exam has significant technical limitation. If patient has pain symptoms out of proportion to these radiographic findings, CT imaging could be performed. Femur xray: COMPARISON: No comparisonsNo comparisonsNo comparisons FINDINGS: No fracture, dislocation or periosteal reaction noted. No acute or suspicious bony finding. Hip joint degenerative changes are present. Right femoral vascular access catheter is in place. Degenerative changes are knee joint. No air or foreign body in the soft tissues. Very large amount of soft tissue limits detail on this examination. Detail at the hip joint is substantially reduced. IMPRESSION: Limited right femur examination shows no acute finding. Tibia Xray: COMPARISON: <Comparisons> FINDINGS: No fracture is identified. There is no dislocation or periosteal reaction noted. No acute or suspicious bony finding. Knee joint degenerative changes are present. No foreign body or other soft tissue abnormality. IMPRESSION: Negative right tibia & fibula examination for acute finding. CT Head/Chest/Ab: COMPARISON: No comparisons TECHNIQUE: Axial [address] head images were obtained. Axial [address] cervical spine images were obtained with sagittal and coronal reconstruction images reviewed. Axial 5 mm images of the chest, abdomen and pelvis were obtained without IV contrast. Sagittal and coronal reconstruction of the chest, abdomen and pelvis performed. All CT scans are performed using dose optimization technique as appropriate and may include automated exposure control or mA/KV adjustment according to patient size. FINDINGS: No intracranial hemorrhage, mass or edema. No midline shift or abnormal fluid collection. Mastoid air cells and paranasal sinuses are clear. No skull fracture. CT cervical spine shows normal height and alignment. Prominent degenerative changes are present. No fracture or acute finding. No disc space narrowing. No suspicious soft tissue finding. Central canal detail is inherently limited. CT chest shows no pneumothorax, pulmonary contusion or pleural fluid collection. No mediastinal hematoma and the aorta and pulmonary arteries are unremarkable for non contrast study. No chest will mass or abnormal axillary finding. No displaced rib fracture or other significant bony finding. CT abdomen and pelvis show no injury to the solid abdominal viscera. Diffuse fatty infiltration the liver is present. No acute gallbladder finding. Wall assessment cannot be made accurately on this study. Gallstones and sludge can be occult on CT imaging. No biliary tree dilatation. No bowel injury or significant finding. No free air, free fluid or abnormal stranding. No urinary bladder abnormality. Disc and bone degenerative changes are present. 20% wedge compression fracture deformity is present in the L3 body with posterior wall height preserved. Age of the fracture is uncertain. Acute fracture is possible. No other compression fracture deformity seen. L3 changes do not involve the pedicles or posterior elements. IMPRESSION: No significant CT Head finding. No significant CT cervical spine finding. Degenerative changes are present. No acute traumatic CT chest finding. No acute traumatic soft tissue CT abdomen or pelvis finding. L3 20% wedge compression fracture deformity is present age uncertain. Acute fracture cannot be excluded. Posterior wall height preserved with no encroachment into the central canal. Correlation is needed with any mid lumbar pain symptoms. ABUS: COMPARISON: none FINDINGS: The liver has an increased echotexture. Liver appears mildly enlarged A gallstone is not seen. The gallbladder wall is not thickened. The biliary tree is normal caliber. Small amount of sludge The right kidney measures 8 centimeters with a normal echotexture. The left kidney measures 10 centimeters with a normal echotexture. The spleen measures 7 centimeters. Small echogenic areas may represent granulomas Limited evaluation of abdominal aorta, pancreas and inferior vena cava secondary to body habitus and overlying bowel gas IMPRESSION: Increased hepatic echotexture consistent with fatty infiltration Mild hepatomegaly Physical exam: General: Alert. Patient disheveled. Currently on BiPAP. HEENT: Other (Mucous membranes dry) Neck: Supple Respiratory: Diminished bilateral. Currently on BiPAP. Cardiovascular: No edema, Normal S1 S2 Capillary refill: <2 Seconds Gastrointestinal: Soft and benign, No tenderness, No masses, No rebound Musculoskeletal: No contractures, No erythema, No tenderness Integumentary: Erythema, Other (Area of excoriation to left thigh) Neurological: Normal speech, Normal strength at 5/5 x4 extr, Normal tone, Sensation intact Impression: Acute encephalopathy secondary to acute renal failure with acute rhabdomyolysis complicated with hyponatremia, hyperkalemia, high anion gap metabolic acidosis with contraction alkalosis Elevated liver function likely related to alcohol abuse with underlying fatty liver and mild hepatomegaly Sepsis with bacteremia etiology unknown Excoriation to the left upper thigh likely from fall and rug burn Suspect underlying obstructive sleep apnea GERD Obesity, BMI greater than 45 Plan: Acute encephalopathy secondary to acute renal failure with acute rhabdomyolysis complicated with hyponatremia, hyperkalemia, hypocalcemia, high anion gap metabolic acidosis with contraction alkalosis: Continue aggressive fluids. Case discussed in detail with nephrology. Due to her worsening renal function and hyperkalemia patient will need emergent dialysis. Case discussed with surgery to place dialysis catheter. Dialysis will be performed tonight. Continue with IV fluids and bicarbonate drip. IV hydrocortisone added. Patient on antibiotic therapyRocephin and vancomycin to cover for bacteremia. Etiology unknown. Will make sure echocardiogram is obtained. Continue wean off BiPAP. Critical care/pulmonology consulted for further evaluation. Will monitor closely. Case discussed with in detail. He reports that patient has not taking any antifreeze or other unusual alcoholic cocktail. He reports patient has been drinking. Linotype Mechanic reported binge drinking. Continue to monitor CPK and lab closely. Electrolyte protocol in place. Further orders to come from nephrology. I will turn the service over to the hospitalist team tomorrow. I will go over the plan of care with him. Elevated liver function likely related to alcohol abuse with underlying fatty liver and mild hepatomegaly: Continue with above plan of care. Will monitor closely. Will obtain hepatitis panel. Will monitor for alcohol withdrawal. Provide folic acid and thiamine. Sepsis with bacteremia etiology unknown: Sepsis suspected. Etiology unknown. Will obtain echocardiogram. Continue Rocephin and vancomycin. Blood, urine cultures obtained. Patient on Levophed to maintain MAP of greater than 65 or s ystolic greater than 90. Excoriation to the left upper thigh likely from fall and rug burn: Will monitor closely. Suspect underlying obstructive sleep apnea: Continue with BiPAP. Wean off. GERD: Continue Protonix Obesity, BMI greater than 45: We will address lifestyle modification education when more alert DVT PPX: Heparin Code status: Full Discharge Plan: Home at discharge Time Spent Managing Pts Care (In Minutes): 55
[2020-12-18] MEDS ORDERED: HEPARIN 5000 UNIT/ML 1 ML VIAL ONE ×4 (08:15→22:17)
[2020-12-18] MEDS: NACHLORIDE 0.45% 1,000 ML IV SCH (08:42)
[2020-12-18] MEDS: HEPARIN 5000 UNIT/ML 1 ML VIAL SQ SCH ×2 (08:47→21:00)
--- NOTE | 2020-12-18 08:52 | RAD REPORT ---
EXAM DESCRIPTION: Sergio Single View12/18/2020 7:30 am CLINICAL HISTORY: sob COMPARISON: December 17, 2020 FINDINGS: The lungs appear clear of acute infiltrate. The heart is normal size IMPRESSION: No acute abnormalities displayed
[2020-12-18] MEDS ORDERED: FOLIC ACID 1 MG TABLET PO SCH (09:00)
[2020-12-18] MEDS ORDERED: THIAMINE HCL 100 MG TABLET PO SCH (09:00)
[2020-12-18] MEDS ORDERED: VANCOMYCIN/NS 1 gm 1 GM/250 ML BAG IVPB SCH (09:00)
--- NOTE | 2020-12-18 09:27 | P.CNS ---
Date of Consult: 12/18/20 Reason for Consult: Hyponatremia Requesting Physician: Apollo Mix Primary Care Provider: Dr. Barrera Chief Complaint: Acute renal failure, hypotension, hyponatremia History of Present Illness: 70-year-old female with history of hypertension, COPD, hypothyroidism presented to the emergency department for weakness, fall injury. reports that he left for work around 600 and came home around noon and found patient down on the floor with right leg bent behind her. reports that she has been binge drinking whiskey the past 2 weeks, approximately 5 bottles over the course of the last 2 weeks. Patient was found covered in dried fecal matter further work-up in the emergency department revealed labs significant for sodium 120 potassium 7 chloride 80 bicarb 17 BUN 85 creatinine 2.57 GFR 18 lactic acid 5.4 CPK 2995 CK-MB 17.4 magnesium 3.0T bili 2.4D bili 1.8 AST 202 ALT 98 alk phos 210 ammonia 56 alcohol level 79. Patient oriented x3 at this time, transfer was initiated to [facility] for ICU bed/higher level of care given acute renal failure/liver injury/hyponatremia/hypotension. Patient adamantly refuses transfer to another facility states that under no ci rcumstances does she want to leave this hospital. Patient again oriented x3, spoke with patient at length concerning the fact that we do not have ICU bed or staffing, if she were to require dialysis and was still hypotensive we would not be able to perform this and she would benefit best from higher level of care. Patient again adamantly refuses and is oriented. Patient's at bedside and has called to discuss with other family members who are all in agreement they would prefer patient be transferred but she refuses. Patient was given sepsis fluid bolus in the emergency department labs were repeated there was some improvement with sodium 126 potassium 5.6 chloride 87 bicarb 18 BUN 80 creatinine 2.41. Lactic acid was initially 5.4 and increased to 5.6. Case was discussed with nephrology, will switch fluids to half-normal saline and admit to ICU for further evaluation and management. 16:23 This 70 yrs old Female presents to ER via EMS with complaints of alcoholic , malachi found down. 16:23 The patient presents with decreased range of motion, pain. The complaints affect the malachi right hip, right gluteal fold, right inner thigh and right upper thigh. Context: The problem was sustained at home. Onset: The symptoms/episode began/occurred 2 day(s) ago. Modifying factors: The symptoms are alleviated by nothing. the symptoms are aggravated by movement. Associated signs and symptoms: Pertinent positives: nausea, weakness. obese alcoholic, low bp, dry mm, a and o x3. The patient has experienced near-syncope. Duration: This was a single episode, that is still ongoing. The patient presents with dizziness, feeling faint, generalized weakness, lightheadedness. Allergies No Known Allergies Allergy (Verified 12/07/19 09:23) Home medications list reviewed: Yes Home Medications: Hydrocodone Bit/Acetaminophen [[place] 7.5-325 Tablet] 1 each PO TID 03/15/18 Levothyroxine Sodium 50 mcg PO DAILY 03/15/18 Lidocaine 4% Patch [Lidoderm 5% Patch*] 1 patch TOP DAILY PRN 03/15/18 Duloxetine HCl [Cymbalta] 60 mg PO DAILY 12/07/19 Montelukast Sodium [Singulair] 10 mg PO DAILY 12/07/19 Atorvastatin Calcium [Lipitor] 40 mg PO BEDTIME #30 tab 12/08/19 lisinopriL [Prinivil*] 10 mg PO DAILY #30 tab 12/08/19 - Past Medical/Surgical History Diabetic: No -: COPD -: Hypertension -: Chronic pain -: Major depressive disorder Psychosocial/ Personal History: Unemployed,, lives at home with her - Social History Smoking Status: Unknown if ever smoked Alcohol use: Yes CD- Drugs: No Caffeine use: Yes Place of Residence: Home Review of Systems is unable to be obtained General: Weakness, Malaise Respiratory: Shortness of Breath Neurological: Weakness Physical Examination Temp Pulse Resp BP Pulse Ox 98.7 F 79 25 H 89/79 L 98 12/18/20 06:26 12/18/20 07:30 12/18/20 07:30 12/18/20 07:30 12/18/20 07:30 General: Mild distress HEENT: Atraumatic Neck: Supple Respiratory: Diminished Cardiovascular: No edema, Regular rate/rhythm Gastrointestinal: Soft and benign, Non-distended Musculoskeletal: No clubbing, No contractures Integumentary: No rashes, No cyanosis Laboratory Data (last 24 hrs) 12/17/20 16:28: Sodium 126 L, Potassium 5.6 H*, BUN 80 H, Creatinine 2.41 H, Glucose 156 H 12/17/20 14:10: PT 9.9, INR 0.86, APTT 28.8 12/17/20 14:10: WBC 7.10, Hgb 14.1, Hct 41.1, Plt Count 160 12/17/20 14:10: Sodium 120 L, Potassium 7.0 H*, BUN 85 H, Creatinine 2.57 H, Glucose 93, Magnesium 3.0 H D, Total Bilirubin 2.4 H, AST 202 H, ALT 98 H, Alkaline Phosphatase 210 H, Lipase 94 Imagings Data: EXAM DESCRIPTION: RADChest Single View12/18/2020 7:30 am CLINICAL HISTORY: sob COMPARISON: December 17, 2020 FINDINGS: The lungs appear clear of acute infiltrate. The heart is normal size IMPRESSION: No acute abnormalities displayed EXAM DESCRIPTION: CT - Head C Spine Cap Wo Con - 12/17/2020 2:30 pm CLINICAL HISTORY: PAIN, fall, head, neck, chest and abdomen pain, found unresponsive COMPARISON: No comparisons TECHNIQUE: Axial [address] head images were obtained. Axial [address] cervical spine images were obtained with sagittal and coronal reconstruction images reviewed. Axial 5 mm images of the chest, abdomen and pelvis were obtained without IV contrast. Sagittal and coronal reconstruction of the chest, abdomen and pelvis performed. All CT scans are performed using dose optimization technique as appropriate and may include automated exposure control or mA/KV adjustment according to patient size. FINDINGS: No intracranial hemorrhage, mass or edema. No midline shift or abnormal fluid collection. Mastoid air cells and paranasal sinuses are clear. No skull fracture. CT cervical spine shows normal height and alignment. Prominent degenerative changes are present. No fracture or acute finding. No disc space narrowing. No suspicious soft tissue finding. Central canal detail is inherently limited. CT chest shows no pneumothorax, pulmonary contusion or pleural fluid collection. No mediastinal hematoma and the aorta and pulmonary arteries are unremarkable for non contrast study. No chest will mass or abnormal axillary finding. No displaced rib fracture or other significant bony finding. CT abdomen and pelvis show no injury to the solid abdominal viscera. Diffuse fatty infiltration the liver is present. No acute gallbladder finding. Wall assessment cannot be made accurately on this study. Gallstones and sludge can be occult on CT imaging. No biliary tree dilatation. No bowel injury or significant finding. No free air, free fluid or abnormal stranding. No urinary bladder abnormality. Disc and bone degenerative changes are present. 20% wedge compression fracture deformity is present in the L3 body with posterior wall height preserved. Age of the fracture is uncertain. Acute fracture is possible. No other compression fracture deformity seen. L3 changes do not involve the pedicles or posterior elements. IMPRESSION: No significant CT Head finding. No significant CT cervical spine finding. Degenerative changes are present. Conclusions/Impression: BREANN in the setting of rhabdomyolysis and hypotension Acute Rhabdomyolysis -Increase IVF NS at 150ml/hr Hyponatremia in the setting of excessive EtOH intake -Continue IVF with NS -Monitor sodium q4h Hyperkalemia -Continue IVF -Kayexalate prn AG Acidosis, mild -Continue IVF to improve BREANN Hypocalcemia -Consider Calcitriol -Check PO4 level HTN complicated by hypotension -Continue IVF -IVF bolus as needed -Vasopressor as needed Hyperglycemia -RISS as needed -Check A1C Acute respiratory failure -Bipap as needed Toxic metabolic encephalopathy -Continue supportive care Case reviewed with Dr. Mix Critical Care: Yes (>30min)
[2020-12-18] MEDS ORDERED: Levofloxacin 750mg IV 750 MG/150 ML BAG IV ONE ×2 (10:00→11:05)
[2020-12-18] MEDS ORDERED: NA CHLORIDE 0.9% 1,000 ML IV SCH (10:00)
--- NOTE | 2020-12-18 10:01 | RAD REPORT ---
EXAM DESCRIPTION: US - Abdomen Exam Complete - 12/17/2020 11:54 pm CLINICAL HISTORY: Abdominal pain COMPARISON: none FINDINGS: The liver has an increased echotexture. Liver appears mildly enlarged A gallstone is not seen. The gallbladder wall is not thickened. The biliary tree is normal caliber. S mall amount of sludge The right kidney measures 8 centimeters with a normal echotexture. The left kidney measures 10 centimeters with a normal echotexture. The spleen measures 7 centimeters. Small echogenic areas may represent granulomas Limited evaluation of abdominal aorta, pancreas and inferior vena cava secondary to body habitus and overlying bowel gas IMPRESSION: Increased hepatic echotexture consistent with fatty infiltration Mild hepatomegaly
[2020-12-18] MEDS ORDERED: NA CHLORIDE 0.9% 1,000 ML ONE ×3 (11:05→14:38)
[2020-12-18] MEDS: LORazepam 2 MG/ML VIAL IV PRN (11:59)
[2020-12-18] MEDS ORDERED: LORazepam 2 MG/ML VIAL ONE (12:21)
[2020-12-18] MEDS: CEFTRIAXONE 1 GM/NS 50 ML 1 GM/50 ML BAG IV SCH ×2 (13:00→21:00)
[2020-12-18] MEDS ORDERED: NA CHLORIDE 0.9% 1,000 ML IV ONE ×2 (13:49→13:57)
[2020-12-18 13:51] LABS: Potassium 5.6 mmol/L (3.5-5.1)
[2020-12-18] MEDS ORDERED: VANCOMYCIN 2 GM in NA CHLORIDE 0.9% 500 ML IVPB SCH (14:00)
[2020-12-18] MEDS: VANCOMYCIN 2 GM in NA CHLORIDE 0.9% 500 ML IVPB SCH (14:00)
[2020-12-18] MEDS ORDERED: HYDROCORTISONE SUC 100 MG INJ ONE (14:02)
[2020-12-18] MEDS ORDERED: HYDROCORTISONE SUC 100 MG INJ IV ONE (14:18)
[2020-12-18 15:18] LABS: UR PROTEIN 308.9 mg/dL (<11.9); Urine Protein/Creatinine Ratio 1.73 ratio (<0.15)
--- NOTE | 2020-12-18 15:23 | CON ---
Date of Consultation: 12/18/2020 Reason For Consultation: Hyperkalemia, acute kidney injury, hyponatremia. History Of Present Illness: All the information has been obtained from the record as the patient is on BiPAP, altered mental status. No family by bedside. I obtained the history from the record and from the nurse by bedside. This is a 70-year-old female with significant past medical history of hypertension, COPD, hypothyroidism. The patient was brought to the emergency room because of altered mental status. The patient was found by the lying on the floor with a period of 6 hours. Upon arrival to the hospital, the patient found to be hyponatremic and hyperkalemic. For that reason, we have been consulted. The patient is still oliguric. According to the record, there is no mention for any nonsteroidal intake. The patient is taking hydrocodone as pain medication and the patient has been on lisinopril. Past Medical History: Includes: 1. Hypertension. 2. COPD. 3. Low back pain. 4. Depression. Social History: Active alcohol. Active smoker. Family History: None obtainable. Home Medications: Include hydrocodone, levothyroxine, lidocaine, Singulair, atorvastatin, lisinopril. Allergies: NO KNOWN DRUGS ALLERGY. Review of Systems: None obtainable. Physical Examination: Vital Signs: When I saw the patient; blood pressure marginally low of 91/62, pulse of 83, afebrile. The patient had urine output of 400. Chest: Crackles bilateral. Heart: S1, S2. Tachycardic. Abdomen: Soft, nontender. Extremities: No edema. Neuro: The patient moving 4 extremities without any focality. Laboratory Data: WBC 7.4, H and H 13.7/40.9, platelets 181. Upon arrival to the hospital; sodium 120, potassium 7, bicarb 17, BUN 85, creatinine 2.5, calcium 8.6. AST and ALT elevated. CK 2995. BNP 1070. Albumin 3.1. Lactic acid 5.4. Latest lab data; sodium 124, potassium 6, bicarb 18, BUN 76, creatinine 2.5, glucose 139, lactic acid of 3, calcium 7.2, magnesium 2.5. CK continued to rise of 10,435. TSH 1.6. Urinalysis is still pending. Random sodium less than 5. TSH 1.6. Cortisol still pending. Current Medications: The patient on include ceftriaxone, vancomycin, Levophed, normal saline 150 per hour, thiamin. Renal ultrasound, 8 x 10. ABG; pH 7.24, CO2 42, O2 124, base access -8. Assessment And Plan: 1. Acute kidney injury, multifactorial, secondary to prerenal, low perfusion ATN. 2. Rhabdomyolysis. 3. To rule out any intoxication, salicylate has been ruled out.with the present of Osmolar GAP to R/o ethlyn Glyco The patient has alcohol intoxication to rule out any ethylene glycol or isopropyl. The patient is still behind on IV fluid. I will bolus the patient with another L of normal saline given the acute kidney injury and worsening rhabdomyolysis that means the patient is still on activity. I am going to start the patient on bicarb drip given the hyponatremia with renal failure. The patient will need isotonic fluid. I am going to change the IV fluid to half-normal with 1.5 amp of bicarb and run it at 150 per hour and we will follow up. We will bolus the patient with another L and we will follow up. 4. Hyponatremia, multifactorial, depletional, secondary to possible BREANN / liver failure to r/u adrenal inss The urine electrolyte more support of depletional. We will send for uric acid and hypothyroidism has been ruled out with the presence of hyperkalemia. Adrenal insufficiency to be ruled out. I am going to send for cortisol level. We will follow up with the patient. Currently, as I said, we will bolus the patient with another L of normal saline and we will maintain the patient on isotonic fluid as blood pressure still marginal and volume override the electrolyte. 5. Hyperkalemia, multifactorial, secondary to renal failure and rhabdomyolysis with the presence of hyponatremia to rule out any adrenal insufficiency. We will start the patient on hydrocortisone. We will send for cortisol level and we will follow up with the patient. 6. High anion gap metabolic acidosis with contraction alkalosis secondary to renal failure to rule out any intoxication. I am going to send for an ethylene glycol level. We will send for serum osmolality and we will calculate any osmolar gap. We will start the patient on aggressive hydration depending on the osmolar gap and the result of the urine to evaluate if there is any ethylene glycol intoxication. 7. Rhabdomyolysis. The patient is still on contraction with acute kidney injury. The patient needs more IV fluid. We will bolus the patient. We will start the patient on bicarb drip. 8. Altered mental status. Reviewing the record with rhabdomyolysis to rule out any seizure induced by the alcohol intoxication, we will follow up with the primary. We will start on the banana bag. We will follow up with Neurology. 9. Hypocalcemia. Given the current symptoms, the patient's altered mental status and with the presence of rhabdomyolysis, I am going to avoid supplement for the time being to avoid any calcification. We will send for the phosphorus. 10. Alcohol intoxication as above. time spend exam the patient face to face , reviewing data including radiology and lab , placing order discussing the case with other steam finisher including hospitalist , and the surgeon for the HD cath and arranging for HD 75 min ELI/TASH Voice ID: [id number] Report ID: [id number] MTDD
[2020-12-18] MEDS: NACHLORIDE 0.45% 1,000 ML with NA BICARB 8.4% 75 MEQ IV SCH ×4 (15:31→21:10)
[2020-12-18 16:20] LABS: Urine Appearance TURBID (Clear); Urine Blood 3+ (Negative); Urine Color Red (Yellow); Urine Glucose NEGATIVE (Negative); Urine Protein 2+ (Negative)
[2020-12-18 16:21] LABS: Urine Microscopic Reflex ORDER UMIC
[2020-12-18 16:31] LABS: Urine RBC <5 /HPF (NONE SEEN)
[2020-12-18 16:32] LABS: Urine Amorphous Sediment 2+ /HPF (NONE SEEN); Urine Bacteria >50 /HPF (<20); Urine Coarse Granular Casts 0-5 /LPF (NONE SEEN)
[2020-12-18 16:35] LABS: Urine Bilirubin 3+ (Negative)
[2020-12-18] MEDS ORDERED: SODIUM CHLORIDE 0.9% 10ML INJ IV PRN (18:07)
[2020-12-18] MEDS ORDERED: LIDOCAINE 1% MPF 5 ML VIAL ONE (20:34)
--- NOTE | 2020-12-18 21:05 | OP ---
Date of Procedure: 12/17/2020 Surgeon: Gaudencio Dee MD Procedure: This is an emergent act G[place] hemodialysis catheter placement. Please see my consult p reviously discussed. Procedure In Detail: The patient was placed in flat position. A time-out was called. The right fem oral region was prepped and draped in a sterile fashion. Lidocaine 1% plain injected as local anesth etic. from the previous central line seems to be in position. We tried a wire through th at area into the femoral region into the superior vena cava. The central line was removed and dilato rs were placed through the guidewire and then a Gaston catheter was placed in that area and secured in place with 3-0 nylon. Excellent backflow and inflow. The line was flushed, reconnected 1 of the lines that patient medication she was getting through the central line through this catheter, and we expect to use catheter until other lines are available. The patient tolerated the procedure well. T he hemodialysis was called emergently. ANDREI/TASH Voice ID: [id number] Report ID: [id number]
--- NOTE | 2020-12-18 21:21 | CON ---
Date of Consultation: 12/18/2020 This is an emergent consult on emergent placement of a hemodialysis catheter. History Of Present Illness: This is a case of a 70-year-old patient apparently came to the ER, broug ht by the and he describes she has been in a 2-week binge of drinking alcohol. She was found colored and dry fecal matter, brought emergently to the ER, found to be in acute renal failure. Pipo Cabrales saw the patient and need emergent hemodialysis catheter. The patient cannot give any info rmation. Information obtained from the chart when the gave to the ER physician. Review of Systems: Unable to be obtained. Past Medical Problems: COPD, hypertension, depressive disorder, and morbid obesity. Past Surgical History: Unknown. Social History: Social habits as above. Family History: Unknown. Medications: Reviewed. Physical Examination: General: The patient is sedated. Chest: Bilateral breath sounds. Abdomen: Soft and depressible. Extremities: With lymphedema both sides, morbidly obese. She has anasarca over the body and includi ng the thigh region. No cyanosis. Neurologic: As above. Laboratory Data: Blood work shows WBC count of 7.4 with hemoglobin of 13. INR of 0.86, potassium 5. 6, creatinine is 2.8. Assessment: A 70-year-old patient with acute renal failure and they need to access. We have no acce ss to this lady. One peripheral line in that area, central line on the right femoral and I need to p ut the dialysis catheter in that region. She is still swollen and morbidly obese that basically the access is very limit. So, we are going to have to put her line on the right femoral region now. We are going to have to use that access for also some other medications just dialysis until s he becomes more stable and we can take it to the OR, and under the guidance and fluoroscopy, we can d o more procedures. This an emergency situation wanted to be done right away, so we are going to ____ catheter at this moment. She has very short neck, the chest is all swollen, and morbidly obes e, and line in that area may be somehow dangerous, so we are going to put on the right femoral region . Under aseptic condition after time-out, we proceed that to do this. The benefits, alternatives, a nd risks fully explained to the , which include infection, bleeding, damage to adjacent struct ures as complication, bleeding. They also understand this is a temporary procedure. They understood and consent was given over the phone. JULIO Voice ID: [id number] Report ID: [id number]
[2020-12-18] MEDS ORDERED: NA CHLORIDE 0.9% 50 ML ONE (21:52)
[2020-12-18] MEDS ORDERED: CEFTRIAXONE 1000 MG/VIAL ONE (21:52)
[2020-12-18] MEDS: FENTANYL CITR 100 MCG/2 ML IV PRN (22:31)
[2020-12-18] MEDS ORDERED: FENTANYL CITR 100 MCG/2 ML ONE (22:50)
[2020-12-19] MEDS ORDERED: NOREPINEPHRINE 4mg/D5W 250mL 4 MG/250 ML BAG IV ONE ×3 (01:39→23:36)
[2020-12-19] MEDS ORDERED: VANCOMYCIN 1 GM/VIAL ONE (02:20)
[2020-12-19] MEDS ORDERED: NA CHLORIDE 0.9% 250 ML ONE (02:20)
[2020-12-19 04:56] LABS: Absolute Lymphocytes (CBC) 0.3 K/uL (0.7-4.9); Basophils % 0.2 % (0-1.3); Hematocrit 35.4 % (36.0-45.0); Lymphocytes % 2.7 % (15.3-44.8); MPV 9.7 fL (7.6-11.3); RBC Red Blood Cell Count 3.59 M/uL (3.86-4.86)
[2020-12-19 05:44] LABS: Albumin 2.1 g/dL (3.4-5.0); Phosphorus 3.3 mg/dL (2.5-4.9); Potassium 4.3 mmol/L (3.5-5.1); Uric Acid 6.7 mg/dL (2.6-6.0)
[2020-12-19] MEDS: NACHLORIDE 0.45% 1,000 ML with NA BICARB 8.4% 75 MEQ IV SCH ×2 (07:00)
--- NOTE | 2020-12-19 07:25 | RAD REPORT ---
EXAM DESCRIPTION: RAD - Chest Single View - 12/19/2020 6:00 am CLINICAL HISTORY: follow up ANNA, Dyspnea COMPARISON: Chest Single View dated 12/18/2020; Chest Single View dated 12/17/2020; Chest Single Vie w dated 12/06/2019; Chest Single View dated 03/19/2018Chest Single View dated 12/18/2020; Chest Single View dated 12/17/2020; Chest Single View dated 12/06/2019; Chest Single View dated 03/19/2018 FINDINGS: Lines: None. Lungs: No evidence of edema or pneumonia. Pleural: No significant pleural effusions or pneumothorax. Cardiac: The heart size is within normal limits. Bones: No acute fractures. Other: IMPRESSION: No acute cardiopulmonary disease.
[2020-12-19] MEDS: FOLIC ACID 1 MG in NA CHLORIDE 0.9% 50 ML IV SCH (08:34)
[2020-12-19] MEDS: HEPARIN 5000 UNIT/ML 1 ML VIAL SQ SCH ×2 (08:35→20:47)
[2020-12-19] MEDS: PANTOPRAZOLE 40 MG INJ IVP SCH (08:35)
[2020-12-19] MEDS: THIAMINE 200 MG/2 ML INJ IVP SCH (08:35)
[2020-12-19] MEDS: CEFTRIAXONE 1 GM/NS 50 ML 1 GM/50 ML BAG IV SCH ×2 (08:35→20:18)
[2020-12-19] MEDS ORDERED: PANTOPRAZOLE 40 MG INJ ONE (08:40)
[2020-12-19] MEDS ORDERED: THIAMINE 200 MG/2 ML INJ ONE (08:40)
[2020-12-19] MEDS ORDERED: HEPARIN 5000 UNIT/ML 1 ML VIAL ONE ×2 (08:40→20:38)
[2020-12-19] MEDS ORDERED: FOLIC ACID 5 MG/ML VIAL IVP SCH (09:00)
[2020-12-19] MEDS ORDERED: NACHLORIDE 0.45% 1,000 ML with NA BICARB 8.4% 75 MEQ IV SCH ×2 (09:00)
--- NOTE | 2020-12-19 09:01 | EKG ---
Test Date: 2020-12-17 Test Time: 15:28:03 [employer] Technology Education Teacher: YURY MEASUREMENT RESULTS: Intervals: Rate: 81 UT: 196 QRSD: 94 QT: 436 QTc: 506 Patriot: P: 49 UT: 196 QRS: 28 T: 58 INTERPRETIVE STATEMENTS: Sinus rhythm with frequent premature ventricular complexes Low voltage QRS Cannot rule out Anteroseptal infarct, age undetermined Abnormal ECG Compared to ECG 12/06/2019 21:16:06 Ventricular premature complex(es) now present Atrial premature complex(es) no longer present Myocardial infarct finding still present Electronically Signed On 12-19-20 08:57:37 CDT by Vik Sauceda
[2020-12-19 09:50] LABS: Bilirubin Total 0.7 mg/dL (0.2-1.0); Potassium 4.2 mmol/L (3.5-5.1); Protein, Total 5.1 g/dL (6.4-8.2)
[2020-12-19 09:55] LABS: Arterial Blood Carboxyhemoglob 0.7 % (0-1.5); Blood Gas Oxyhemoglobin 97.2 % (94-97); Blood O2 Saturation 99.1 % (92-98.5)
[2020-12-19] MEDS: NACHLORIDE 0.45% 1,000 ML IV SCH ×2 (10:54→21:00)
[2020-12-19] MEDS ORDERED: NACHLORIDE 0.45% 1,000 ML IV ONE ×2 (11:14→22:04)
[2020-12-19 11:55] LABS: Urine Appearance TURBID (Clear); Urine Blood 3+ (Negative); Urine Color Red (Yellow); Urine Glucose TRACE (Negative); Urine Protein 2+ (Negative)
[2020-12-19 11:58] LABS: Urine Bilirubin 2+ (Negative)
[2020-12-19 12:07] LABS: Urine Bacteria <20 /HPF (<20); Urine Coarse Granular Casts 0-5 /LPF (NONE SEEN); Urine Mucus 2+ /HPF (NONE SEEN)
[2020-12-19 12:10] LABS: Arterial Blood Carboxyhemoglob 0.7 % (0-1.5); Blood Gas Oxyhemoglobin 96.9 % (94-97); Blood O2 Saturation 98.8 % (92-98.5)
--- NOTE | 2020-12-19 12:13 | P.CNS ---
Date of Consult: 12/19/20 Reason for Consult: Respiratory failure Primary Care Provider: Dr. Barrera Chief Complaint: Acute renal failure, hypotension, hyponatremia History of Present Illness: Patient is 70 years of age metabolic syndrome hypertension COPD alcoholic mated with electrolyte abnormality altered mental status respiratory failure and is currently on BiPAP minimally responsive Allergies No Known Allergies Allergy (Verified 12/07/19 09:23) Home Medications: Hydrocodone Bit/Acetaminophen [[place] 7.5-325 Tablet] 1 each PO TID 03/15/18 Levothyroxine Sodium 50 mcg PO DAILY 03/15/18 Lidocaine 4% Patch [Lidoderm 5% Patch*] 1 patch TOP DAILY PRN 03/15/18 Duloxetine HCl [Cymbalta] 60 mg PO DAILY 12/07/19 Montelukast Sodium [Singulair] 10 mg PO DAILY 12/07/19 Atorvastatin Calcium [Lipitor] 40 mg PO BEDTIME #30 tab 12/08/19 lisinopriL [Prinivil*] 10 mg PO DAILY #30 tab 12/08/19 - Past Medical/Surgical History Diabetic: No -: COPD -: Hypertension -: Chronic pain -: Major depressive disorder Psychosocial/ Personal History: Unemployed,, lives at home with her - Social History Smoking Status: Unknown if ever smoked Alcohol use: Yes CD- Drugs: No Caffeine use: Yes Place of Residence: Home Review of Systems is unable to be obtained Physical Examination Temp Pulse Resp BP Pulse Ox 97.9 F 76 25 H 114/56 L 100 12/19/20 11:45 12/19/20 12:00 12/19/20 12:00 12/19/20 12:00 12/19/20 12:00 General: Unresponsive Respiratory: Expiratory wheezes Cardiovascular: No edema, Normal S1 S2 Gastrointestinal: Normal bowel sounds, Soft and benign - Problems (1) Respiratory failure Current Visit: Yes Status: Acute Plan: Patient is 70 years of age alcoholic mated with multiple medical problems hypotensive metabolic acidosis respiratory failure multiorgan failure with renal insufficiency elevated liver enzymes and rhabdo blood cultures positive results pending chest x-ray clear medications reviewed no change otherwise stable patient does take pain medications at home Qualifiers: Chronicity: acute
[2020-12-19] MEDS ORDERED: ALBUMIN HUMAN 25% 100 ML IV ONE (12:46)
[2020-12-19] MEDS ORDERED: ALBUMIN HUMAN 25% 50 ML IV ONE (14:34)
--- NOTE | 2020-12-19 17:05 | RAD REPORT ---
EXAM DESCRIPTION: MRI - Brain Wo Cont - 12/19/2020 4:47 pm CLINICAL HISTORY: AMS COMPARISON: Head C Spine Cap Wo Con dated 12/17/2020 TECHNIQUE: Sagittal T1-weighted images were obtained along with axial PD, heavily T2-weighted and T2 -FLAIR images. Axial DWI and ADC mapping sequences were also obtained along with coronal heavily T2-w eighted images. FINDINGS: Exam has substantial motion degradation with repeated sequences showing only marginally im proved image quality. Diffusion sequencing shows no acute infarction. There is no evidence for hemorrhage, mass or cerebral edema. No midline shift. Atrophy is minimal. Patient does have scattered chronic ischemic change in the cerebral white matter unlikely in the brainstem as well. Basal ganglia chronic ischemic changes a re believed to be minimal with no significant thalamus chronic ischemic change. No extra-axial fluid collections. Miller-matter/white matter junction is preserved. Signal voids are seen as a normal findin g in the major intracranial vessels. Ventricles are normal. No sella or supra sella mass identified. No globe or orbital content abnormality. No acute or significant mastoid or paranasal sinus finding. IMPRESSION: Substantially motion degraded study shows no acute infarction. No hemorrhage, mass or ac [place] intracranial finding. Patient has little if any identifiable atrophy and only mild chronic ischemic change.
[2020-12-19] MEDS ORDERED: ALBUTEROL 2.5 MG/3 ML NEB SOL ONE (18:02)
[2020-12-19] MEDS ORDERED: IPRATROPIUM BROM 0.5MG/2.5ML ONE (18:03)
[2020-12-19] MEDS ORDERED: IPRATROPIUM BROM 0.5MG/2.5ML NEB SCH (20:00)
[2020-12-19] MEDS ORDERED: ALBUTEROL 2.5 MG/3 ML NEB SOL NEB SCH (20:00)
[2020-12-19] MEDS ORDERED: ALBUTEROL 2.5 MG/3 ML NEB SOL NEB PRN (20:00)
[2020-12-19] MEDS ORDERED: IPRATROPIUM BROM 0.5MG/2.5ML NEB PRN (20:00)
[2020-12-19] MEDS ORDERED: CEFTRIAXONE 1000 MG/VIAL ONE (20:38)
[2020-12-19] MEDS ORDERED: NA CHLORIDE 0.9% 50 ML ONE (20:39)
[2020-12-19 22:18] LABS: Potassium 3.9 mmol/L (3.5-5.1)
[2020-12-20] MEDS: LORazepam 2 MG/ML VIAL IV PRN ×3 (01:29→19:57)
[2020-12-20] MEDS: VANCOMYCIN 2 GM in NA CHLORIDE 0.9% 500 ML IVPB SCH (01:31)
[2020-12-20] MEDS ORDERED: LORazepam 2 MG/ML VIAL ONE ×3 (01:49→20:20)
[2020-12-20] MEDS ORDERED: NA CHLORIDE 0.9% 250 ML ONE ×2 (01:49→23:12)
[2020-12-20] MEDS ORDERED: VANCOMYCIN 1 GM/VIAL ONE (01:49)
[2020-12-20 05:28] LABS: Absolute Lymphocytes (CBC) 0.6 K/uL (0.7-4.9); Basophils % 0.2 % (0-1.3); Hematocrit 29.7 % (36.0-45.0); MPV 8.6 fL (7.6-11.3); RBC Red Blood Cell Count 3.03 M/uL (3.86-4.86)
[2020-12-20 06:08] LABS: Bilirubin Total 0.7 mg/dL (0.2-1.0); Magnesium 1.8 mg/dL (1.8-2.4); Phosphorus 2.9 mg/dL (2.5-4.9); Potassium 3.8 mmol/L (3.5-5.1); Protein, Total 4.8 g/dL (6.4-8.2)
[2020-12-20 06:34] LABS: Blood Morphology Comment NOTED (NOT SEEN); Platelet Estimate ADEQ
[2020-12-20 06:35] LABS: Basophilic Stippling 1+; Hypochromasia 1+
[2020-12-20] MEDS: NACHLORIDE 0.45% 1,000 ML IV SCH (07:00)
[2020-12-20] MEDS: FOLIC ACID 1 MG in NA CHLORIDE 0.9% 50 ML IV SCH (08:24)
[2020-12-20] MEDS: THIAMINE 200 MG/2 ML INJ IVP SCH (08:25)
[2020-12-20] MEDS: CEFTRIAXONE 1 GM/NS 50 ML 1 GM/50 ML BAG IV SCH (08:25)
[2020-12-20] MEDS: PANTOPRAZOLE 40 MG INJ IVP SCH (08:25)
[2020-12-20] MEDS: HEPARIN 5000 UNIT/ML 1 ML VIAL SQ SCH ×2 (08:25→21:00)
[2020-12-20] MEDS ORDERED: HEPARIN 5000 UNIT/ML 1 ML VIAL ONE ×2 (08:43→21:36)
[2020-12-20] MEDS ORDERED: PANTOPRAZOLE 40 MG INJ ONE (08:44)
[2020-12-20] MEDS ORDERED: THIAMINE 200 MG/2 ML INJ ONE ×2 (08:44→22:57)
[2020-12-20] MEDS ORDERED: Levofloxacin500mg IV 500 MG/100 ML BAG IV SCH (09:00)
[2020-12-20] MEDS ORDERED: NACHLORIDE 0.45% 1,000 ML IV ONE (10:10)
--- NOTE | 2020-12-20 10:50 | P.PN ---
Subjective Date of Service: 12/19/20 Chart is been reviewed. Spoke with family member including and sister. Patient is clinically doing a little bit better from her labs standpoint after multiple dialysis sessions. MRI of the brain is pending. EEG is pending. Neurologic consultation as well. Patient was some respiratory acidosis and this is being corrected by BiPAP. Repeat ABGs. Patient with alcohol abuse. The states she was drinking every day. The sister does not think she was drinking every day. Not really sure exactly what is causing her symptoms but she will be monitored closely. Hopefully her neurologic status improves. Review of Systems 10-point ROS is otherwise unremarkable Physical Examination - Vital Signs Temperature: 97.9 F Blood Pressure: 140/57 Pulse: 80 Respirations: 20 Pulse Ox (%): 94 - Physical Exam General: Alert, In no apparent distress, Oriented x3 Respiratory: Diminished, Crackles/rales Cardiovascular: Regular rate/rhythm, Normal S1 S2, No murmurs Gastrointestinal: Normal bowel sounds, Soft and benign, Non-distended, No tenderness Musculoskeletal: No clubbing, No swelling, No tenderness Neurological: Other (Patient not really waking up following the commands at this time. She does move around in bed and most occasionally) - Studies Medications List Reviewed: Yes Assessment & Plan - Problems (Diagnosis) (1) Rhabdomyolysis Current Visit: Yes Status: Acute (2) Acute renal failure Current Visit: Yes Status: Acute (3) Respiratory acidosis Current Visit: Yes Status: Acute (4) Hypercapnic respiratory failure Current Visit: Yes Status: Acute (5) Respiratory failure Current Visit: Yes Status: Acute Qualifiers: Chronicity: acute (6) COPD exacerbation Onset Date: 06/24/14 Current Visit: No Status: Acute (7) Essential hypertension Onset Date: 03/17/18 Current Visit: No Status: Acute - Plan Plan: 1. Continue with hemodialysis 2. Continue with BiPAP support 3. MRI of the brain 4. EEG 5. Continue with Nephrology and neurologic consultation 6. Adjust BiPAP to improve respiratory acidosis and monitor bicarb for metabolic acidosis-baseline is 40 7. Once mentation improves we should be able to get her off of BiPAP 8. Unlikely to have any intoxication 9. GI and DVT prophylaxis Discharge Plan: Home Plan to discharge in: Greater than 2 days - Advance Directives Does patient have a Living Will: No Does patient have a Durable POA for Healthcare: No - Code Status/Comfort Care Code Status Assessed: Yes Code Status: Full Code Critical Care: Yes Time Spent Managing PTS Care (In Minutes): 45
--- NOTE | 2020-12-20 10:51 | P.PN ---
Date of Service: 12/20/20 Subjective Patient is letahrgic; not following commands; working on weaning off BIPAP; nephrology ordered numerous studies Review of Systems 10-point ROS is otherwise unremarkable Physical Examination - Vital Signs Reviewed - Physical Exam General: Follows some commands Respiratory: Diminished, Crackles/rales Cardiovascular: Regular rate/rhythm, Normal S1 S2, No murmurs Gastrointestinal: Normal bowel sounds, Soft and benign, Non-distended, No tenderness Musculoskeletal: No clubbing, No swelling, No tenderness Neurological: Other (Patient not really waking up following the commands at this time. She does move around in bed and most occasionally) - Studies Medications List Reviewed: Yes Assessment & Plan - Problems (Diagnosis) (1) Rhabdomyolysis Current Visit: Yes Status: Acute (2) Acute renal failure Current Visit: Yes Status: Acute (3) Respiratory acidosis Current Visit: Yes Status: Acute (4) Hypercapnic respiratory failure Current Visit: Yes Status: Acute (5) Respiratory failure Current Visit: Yes Status: Acute Qualifiers: Chronicity: acute (6) COPD exacerbation Onset Date: 06/24/14 Current Visit: No Status: Acute (7) Essential hypertension Onset Date: 03/17/18 Current Visit: No Status: Acute - Plan Plan: 1. Continue with hemodialysis 2. Off BiPAP; ABGs with metabolic acidosis 3. MRI pending 4. EEG pending 5. Continue with Nephrology and neurologic consultation 6. May give bicarb to fix metabolic acidosis(baseline bicarb at 45) 7. Once mentation improves we should be able to get her off of BiPAP 8. GI and DVT prophylaxis Discharge Plan: Home Plan to discharge in: Greater than 2 days - Advance Directives Does patient have a Living Will: No Does patient have a Durable POA for Healthcare: No - Code Status/Comfort Care Code Status Assessed: Yes Code Status: Full Code Critical Care: Yes Time Spent Managing PTS Care (In Minutes): 40
--- NOTE | 2020-12-20 12:42 | P.PN ---
Subjective Date of Service: 12/20/20 Primary Care Provider: Dr. Barrera Chief Complaint: Respiratory failure Subjective: Other (Remains obtunded, in shock.) Physical Examination - Vital Signs Temperature: 97.9 F Blood Pressure: 120/55 Pulse: 85 Respirations: 20 Pulse Ox (%): 92 - Physical Exam General: Other (Appears acutely ill) HEENT: Atraumatic, Normocephalic Neck: Supple, JVD not distended Respiratory: Other (Symmetric chest expansion) Cardiovascular: No rubs, No murmurs Gastrointestinal: Soft and benign, Non-distended Musculoskeletal: No clubbing, Other (+presacral edema) Integumentary: Other (Normal temp) Neurological: Other (Obtunded) Urinary: Loza catheter External genitalia: Deferred Rectal: Deferred - Studies Medications List Reviewed: Yes Assessment And Plan - Plan # BREANN 2/2 rhabdomyolysis + ischemic ATN from shock Baseline SCr 0.5-0.7 as of Dec 2019 Currently anuric, in full blown ATN iPTH 400, indicative of renal fxn decline has been ongoing for the past several wks/mos, which means that her HD dependence is expected to last for at least several weeks HD received yesterday Cont HD daily (SLEDD mode x 3h per session if she remains in shock) or qMWF (if no longer in shock) Next HD tomorrow (SLEDD mode, BFR 200, DFR 400, 3 hrs, UF zero) Insensible water loss about 0.5 cc/d Keep fluid balance net even per day d/t full blown ATN Dc NS gtt now Plan for total volume intake 0.5cc/d, no more than 1L/d Plan to start NG tube feeding or TPN/Clinimix in the next 1-2d Cont IV pressor, titrate MAP > 65 Cont loza Strict I/O Monitor renal panel # Shock likely distributive/septic, likely pulmonary source Extremities warm, obstructive/pulmo embolism/cardiogenic etiology unlikely Abx per primary team, to add anaerobic coverage for ? aspiration event +Pyuria but urine culture neg ? contamination on initial BCx samples Reordered BCx x 2 today TSH wnl F/u serum B12 level, 8am serum cortisol + ACTH Ordered Cosyntropin stim test today # Acute alcoholic hepatitis Discriminant fxn score low CIWA protocol # Chronic respi acidosis 2/2 COPD in acute exacerbation Baseline ABG pH 7.20+, pCO2 around 60, HCO3 30-31 Bipap off this AM Recheck ABG this pm Empiric abx as above Inhalers per other services # Anemia, thrombocytopenia F/u iron panel, LDH, haptoglobin, serum B12 # Metabolic encephalopathy Brain MRI neg Give Thiamine higher dose at 500 mg IV q8h x 6 doses
--- NOTE | 2020-12-20 12:42 | P.PN ---
Subjective Date of Service: 12/20/20 Primary Care Provider: Dr. Barrera Chief Complaint: Respiratory failure Patient's condition is patient's condition is stable minimally responsive oxygenation satisfactory Review of Systems is unable to be obtained Physical Examination - Vital Signs Temperature: 97.9 F Blood Pressure: 120/55 Pulse: 85 Respirations: 20 Pulse Ox (%): 92 - Physical Exam General: Unresponsive - Studies Medications List Reviewed: Yes Assessment & Plan - Problems (Diagnosis) (1) Respiratory failure Current Visit: Yes Status: Acute Plan: Patient admitted with respiratory patient admitted with respiratory failure labs reviewed mildly anemic trial of high flow nasal oxygen chest x-ray is clear continue with IV fluids DC vancomycin change Rocephin to once a day vital signs stable start nasogastric tube feeds rhabdomyolysis renal insufficiency continue with IV fluids oxygenation satisfactory Qualifiers: Chronicity: acute
--- NOTE | 2020-12-20 12:53 | PN ---
Date of Progress Note: 12/19/2020 Chief Complaint: Acute kidney injury associated with multiple electrolyte abnormalities including hyperkalemia, hyponatremia, and metabolic acidosis. History Of Present Illness: The patient is on pressors for severe hypotension. She was found to have rhabdomyolysis, elevated liver function test. She is initiated on hemodialysis due to the fact that the patient has metabolic acidosis and oliguria. Sodium level has gradually improved over the last 48 hours. The patient was treated for severe hyperkalemia. Potassium level was 7 and there was metabolic acidosis present. Bicarbonate on arrival to the hospital was 17 and subsequently with treatment improved to 28 gradually over the last 48 hours. Patient had work-up done for metabolic acidosis and she was found to have ethanol 70 mg/dL. Serum osmolality today is 288. At the same time, sodium 135, potassium 4.2, chloride 98 , CO2 28, BUN 43, creatinine 1.79, glucose 139. She had elevated AST up to 399, ALT to 126. Calcium level is 6.7, albumin is 2.0. CK level was severely elevated 97149. The patient has rhabdomyolysis, electrolytes abnormalities are stabilizing. Review of Systems: The patient is oriented to self and place, although she is somnolent, she remains on BiPAP and she was found to have respiratory acidosis. BiPAP was adjusted by Pulmonary team. The patient is on norepinephrine drip . Patient tolerated dialysis today. Last night she was initiated on dialysis via temporary dialysis catheter and after dialysis lab work was done in the morning. It showed sodium 133, potassium 4.3, chloride 98, CO2 28, BUN 42, creatinine 1.6, glucose 169, and GFR 32, calcium 6.7, uric acid 6.7, phosphorus 3.0, magnesium 2.0, ammonia level is 19. Physical Examination: General: Patient is arousable. Lungs: Clear to auscultation bilaterally. Heart: S1, S2. Abdomen: Soft, benign. Extremities: Some peripheral edema. Impression And Plan: 1. Acute kidney injury. Patient will have dialysis tomorrow for metabolic clearance, monitor renal panel, avoid nephrotoxic medications. 2. Hyponatremia, gradually improved. Monitor electrolytes and adjust IV fluids. Repeat lab work is pending this evening. 3. Altered mental status. Encephalopathy. The patient is consulted by Pulmonary team for respiratory acidosis. MRI of the brain without contrast was done. Further recommendation from primary team. EB/MODL Voice ID: [id number] Report ID: [id number] NITESH
[2020-12-20] MEDS: THIAMINE HCL IV SCH ×2 (14:00→22:00)
[2020-12-20] MEDS: NA CHLORIDE 0.9% IV SCH ×2 (14:00→22:00)
[2020-12-20] MEDS ORDERED: THIAMINE 200 MG/2 ML INJ IVP SCH (14:00)
--- NOTE | 2020-12-20 14:01 | RAD REPORT ---
EXAM DESCRIPTION: RAD - Chest Single View - 12/20/2020 6:37 am CLINICAL HISTORY: follow up ANNA, Dyspnea COMPARISON: Portable December 19 TECHNIQUE: AP portable chest image was obtained 12/20/2020 6:37 am . FINDINGS: No acute lung parenchymal process seen. Interstitial pattern matches comparison. Cardiac s ilhouette is magnified by shallow inspiration, portable technique and rotation. No significant failur e or volume overload seen. No measurable pleural effusion and no pneumothorax. No acute bony abnormality seen. No acute aortic findings suspected. IMPRESSION: No acute cardiopulmonary process. No significant change from comparison study.
[2020-12-20 15:24] LABS: Ferritin 835.1 ng/mL (8-388)
[2020-12-20] MEDS ORDERED: COSYNTROPIN 0.25 MG VIAL IV ONE (16:00)
[2020-12-20 16:17] LABS: Arterial Blood Carboxyhemoglob 0.9 % (0-1.5); Blood Gas Oxyhemoglobin 94.2 % (94-97); Blood O2 Saturation 96.4 % (92-98.5)
[2020-12-20] MEDS: HEPARIN 500 UNIT/5 ML SYR IV PRN (18:52)
[2020-12-20] MEDS ORDERED: HEPARIN 500 UNIT/5 ML SYR IV ONE (19:09)
[2020-12-20 20:11] VITALS: BMI 49.2
[2020-12-20] MEDS: FENTANYL CITR 100 MCG/2 ML IV PRN (21:48)
[2020-12-20] MEDS ORDERED: FENTANYL CITR 100 MCG/2 ML ONE (22:11)
[2020-12-21] MEDS: LORazepam 2 MG/ML VIAL IV PRN ×6 (04:00→20:00)
[2020-12-21] MEDS ORDERED: LORazepam 2 MG/ML VIAL ONE ×4 (04:22→20:30)
[2020-12-21] MEDS ORDERED: NOREPINEPHRINE 4mg/D5W 250mL 4 MG/250 ML BAG IV ONE (04:23)
[2020-12-21] MEDS: NA CHLORIDE 0.9% IV SCH ×3 (05:41→22:00)
[2020-12-21] MEDS: THIAMINE HCL IV SCH ×3 (05:41→22:00)
[2020-12-21 05:44] LABS: Absolute Lymphocytes (CBC) 0.9 K/uL (0.7-4.9); Basophils % 0.3 % (0-1.3); Hematocrit 29.2 % (36.0-45.0); Lymphocytes % 9.1 % (15.3-44.8); MPV 9.1 fL (7.6-11.3); RBC Red Blood Cell Count 2.93 M/uL (3.86-4.86)
[2020-12-21 05:45] LABS: Bilirubin Total 0.5 mg/dL (0.2-1.0); Magnesium 1.9 mg/dL (1.8-2.4); Phosphorus 3.1 mg/dL (2.5-4.9); Potassium 4.2 mmol/L (3.5-5.1); Protein, Total 4.8 g/dL (6.4-8.2)
[2020-12-21] MEDS ORDERED: HEPARIN 500 UNIT/5 ML SYR IV ONE ×4 (06:26→10:54)
[2020-12-21 07:08] LABS: Arterial Blood Carboxyhemoglob 1.1 % (0-1.5); Blood O2 Saturation 97.3 % (92-98.5)
[2020-12-21] MEDS: HEPARIN 500 UNIT/5 ML SYR IV PRN ×4 (07:35→12:05)
[2020-12-21] MEDS ORDERED: COSYNTROPIN 0.25 MG VIAL IV ONE (08:00)
[2020-12-21] MEDS ORDERED: COSYNTROPIN 0.25 MG VIAL IV SCH (08:00)
[2020-12-21] MEDS: FENTANYL CITR 100 MCG/2 ML IV PRN ×4 (08:10→21:50)
[2020-12-21] MEDS ORDERED: FENTANYL CITR 100 MCG/2 ML ONE ×2 (08:26→22:11)
[2020-12-21] MEDS: HEPARIN 5000 UNIT/ML 1 ML VIAL SQ SCH ×2 (09:00→21:00)
[2020-12-21] MEDS: CEFTRIAXONE 1 GM/NS 50 ML 1 GM/50 ML BAG IV SCH (09:00)
[2020-12-21] MEDS: FOLIC ACID 1 MG in NA CHLORIDE 0.9% 50 ML IV SCH (09:00)
[2020-12-21] MEDS ORDERED: HEPARIN 5000 UNIT/ML 1 ML VIAL ONE ×2 (10:08→22:14)
[2020-12-21] MEDS ORDERED: Magnesium Sulfate 2gm IVPB 2 G/50 ML BAG IV ONE ×2 (12:56→14:37)
[2020-12-21] MEDS ORDERED: HYDROCORTISONE SUC 100 MG INJ IV ONE (12:56)
--- NOTE | 2020-12-21 14:18 | PN ---
Date of Progress Note: 12/21/2020 Subjective: The patient was admitted with altered mental status, acute kidney injury, rhabdomyolysis, shock. The patient upon admission found to have osmolar gap around 50. The patient was initiated on dialysis because of the marginal blood pressure. The patient being placed on SLED form to be able to dialyze her as we do not have CRRT. The patient has still mental status, only responds to voice, not opening eyes. Physical Examination: Vital Signs: Blood pressure 110/60, pulse of 88. Chest: Crackles bilateral. Heart: S1, S2. Abdomen: Soft, morbidly obese. Could not appreciate any organomegaly. Extremities: Trace edema. Neuro: The patient responds to chest rub and simple voice command. Moving 4 extremities. No focality. Not opening eyes. Laboratory Data: WBC 9.8, H and H 9.9/29.2, platelet 154. Sodium 134, potassium 4.2, bicarb 28, BUN 40, creatinine 2.5, GFR of 19, calcium 7.3, phosphorus 3.1, magnesium 1.9, AST 366, ALT 137, albumin of 2. Corrected calcium is 8.9. ABG; pH 7.26, CO2 58, O2 95. Alcohol level of 79. Vancomycin trough of 15. Serum osmolality upon admission 310, currently osmolar gap has been close. Stimulation test for cosyntropin was okay. PTH of 440. Current Medications: The patient on include ceftriaxone, norepinephrine, breathing treatment, Zofran, fentanyl, thiamin. Assessment And Plan: 1. Acute kidney injury, multifactorial, secondary to rhabdomyolysis, poor perfusion, ATN, questionable of ethylene glycol supported with osmolar gap upon presentation. Currently, the patient is oliguric. The patient is going to require to be maintained on dialysis. Unfortunately with the marginal low blood pressure, we are trying to use SLED to maintain good clearance and we will follow up. 2. Hyponatremia secondary to renal failure/depletion, recovered, resolved. 3. Liver shock/alcoholic liver as by primary. 4. Acidosis with contraction alkalosis. We will follow up. With dialysis, acidosis is going to be corrected. We will continue BiPAP as a component of acute respiratory acidosis. Also, we will follow up with Pulmonary. 5. Osmolar gap, possible intoxication. Currently, osmolar gap has been close. No need for further. We will follow up. 6. Secondary hyperparathyroidism. I am going to start the patient on calcitriol. 7. Rhabdomyolysis with acute kidney injury, anuric. We will continue on the dialysis SLED. No need for bicarb drip. 8. Altered mental status, multifactorial, possible secondary to seizure/alcohol intoxication/other intoxication. We will follow up with Neurology and primary. 9. Septic shock. The patient is on pressor. Continue current antibiotic, dose adjusted. 10. Urosepsis secondary to Klebsiella pneumonia. Continue Rocephin. Family requesting transfer. We need transfer to facility, can provide CRRT. Time spent examining the patient, [id number], reviewing data including radiology and lab, discussing the case with the hospitalist and our subspecialty 45 minutes. TRENT Voice ID: [id number] Report ID: [id number] MTDD
[2020-12-21] MEDS ORDERED: NA CHLORIDE 0.9% 1,000 ML ONE (14:35)
[2020-12-21] MEDS ORDERED: HYDROCORTISONE SUC 100 MG INJ ONE ×2 (14:36→22:08)
[2020-12-21] MEDS ORDERED: ALBUMIN HUMAN 25% 100 ML IV ONE (15:39)
[2020-12-21] MEDS ORDERED: ALBUMIN HUMAN 25% 50 ML IV ONE ×2 (16:07→16:10)
[2020-12-21] MEDS: HYDROCORTISONE SUC 100 MG INJ IV SCH (21:00)
[2020-12-22] MEDS: LORazepam 2 MG/ML VIAL IV PRN ×2 (00:13→09:14)
[2020-12-22] MEDS ORDERED: LORazepam 2 MG/ML VIAL ONE ×2 (00:35→09:37)
[2020-12-22] MEDS ORDERED: VANCOMYCIN 2 GM in NA CHLORIDE 0.9% 500 ML IVPB SCH (02:00)
[2020-12-22] MEDS: MORPHINE 2 MG/ML SYR IV PRN (02:05)
[2020-12-22] MEDS ORDERED: MORPHINE 2 MG/ML SYR ONE (02:25)
[2020-12-22 05:20] LABS: Absolute Lymphocytes (CBC) 0.6 K/uL (0.7-4.9); Basophils % 0.1 % (0-1.3); Hematocrit 27.4 % (36.0-45.0); Lymphocytes % 7.4 % (15.3-44.8); MPV 8.6 fL (7.6-11.3); RBC Red Blood Cell Count 2.77 M/uL (3.86-4.86)
[2020-12-22 05:39] LABS: Albumin 2.2 g/dL (3.4-5.0); Bilirubin Total 0.5 mg/dL (0.2-1.0); Folic Acid, (Folate) 7.8 ng/mL (3.1-17.5); Magnesium 2.3 mg/dL (1.8-2.4); Phosphorus 3.4 mg/dL (2.5-4.9); Potassium 4.3 mmol/L (3.5-5.1); Protein, Total 5.2 g/dL (6.4-8.2); Thyroid Stimulating Hormone 1.47 uIU/mL (0.360-3.740)
[2020-12-22 05:56] LABS: Arterial Blood Carboxyhemoglob 1.1 % (0-1.5); Blood Gas Oxyhemoglobin 93.6 % (94-97); Blood O2 Saturation 95.9 % (92-98.5)
[2020-12-22] MEDS: THIAMINE HCL IV SCH (06:00)
[2020-12-22] MEDS: NA CHLORIDE 0.9% IV SCH (06:00)
--- NOTE | 2020-12-22 07:57 | EEG ---
CHART: [id number] TEST ID#: [id number] DATE OF STUDY: 12/20/2020 THE EEG WAS RECORDED PORTABLE IN THE EMERGENCY ROOM (ICU HOLD) ON A 17 CHANNEL MACHINE. ELECTRODES WERE APPLIED IN THE USUAL MANNER USING THE INTERNATIONAL 10-20 SYSTEM. THE WAKING BACKGROUND RHYTHM IN THIS RECORD CONSISTS OF PORRLY DEVELOPED AND POORLY ORGANIZED WAVES OF 4-6 HZ., IN A WIDE DISTRIBUTION WHICH ATTENUATE NORMALLY WITH EYE OPENING. MODERATE VOLTAGE 1.5-3 HZ ACTIVITY IS EXPRESSED INTERMITTENTLY IN THE FRONTAL AND CENTRAL REGIONS. THERE ARE NO FOCAL OR LATERALIZING FEATURES. NO EPILEPTIFORM ACTIVITY APPEARS. SLEEP DID NOT OCCUR. HYPERVENTILATION WAS NOT PERFORMED. PHOTIC STIMULATION PRODUCED NO DRIVING BILATERALLY. IMPRESSION: THIS IS A MODERATELY ABNORMAL ROUTINE AWAKE EEG DUE TO THE PRESENCE OF A DIFFUSELY SLOW BACKGROUND AND NO EXPRESSED POSTERIOR DOMINANT RHYTHM. THESE FINDINGS INDICATE THE PRESENCE OF A MODERATE DIFFUSE DISTURBANCE IN CEREBRAL FUNCTION. HOWEVER, THIS IS A NON-SPECIFIC FINDING.
[2020-12-22] MEDS: HEPARIN 5000 UNIT/ML 1 ML VIAL SQ SCH ×2 (08:43→21:15)
[2020-12-22] MEDS: FOLIC ACID 1 MG in NA CHLORIDE 0.9% 50 ML IV SCH (08:43)
[2020-12-22] MEDS ORDERED: HEPARIN 5000 UNIT/ML 1 ML VIAL ONE ×2 (08:53→21:24)
[2020-12-22] MEDS ORDERED: HYDROCORTISONE SUC 100 MG INJ ONE ×2 (08:53→21:24)
[2020-12-22] MEDS: CEFTRIAXONE 1 GM/NS 50 ML 1 GM/50 ML BAG IV SCH (08:59)
[2020-12-22] MEDS: HYDROCORTISONE SUC 100 MG INJ IV SCH ×2 (09:00→21:15)
[2020-12-22] MEDS ORDERED: HEPARIN 500 UNIT/5 ML SYR IV ONE (09:52)
[2020-12-22] MEDS: FENTANYL CITR 100 MCG/2 ML IV PRN ×2 (11:03→21:15)
[2020-12-22] MEDS ORDERED: FENTANYL CITR 100 MCG/2 ML ONE ×2 (11:25→21:26)
--- NOTE | 2020-12-22 12:58 | P.PN ---
Subjective Date of Service: 12/22/20 Primary Care Provider: Dr. Barrera Chief Complaint: Respiratory failure Patient is currently on BiPAP unresponsive on hemodialysis Review of Systems is unable to be obtained Physical Examination - Vital Signs Temperature: 97.5 F Blood Pressure: 101/55 Pulse: 83 Respirations: 21 Pulse Ox (%): 95 - Physical Exam General: Unresponsive Respiratory: Clear to auscultation bilaterally - Studies Microbiology Data (last 24 hrs): 12/17/20 14:23 Catheterized Urine [place] Count - Final <10,000 CFU/ML. 12/17/20 14:23 Catheterized Urine - Final Klebsiella Pneumoniae Medications List Reviewed: Yes Assessment & Plan - Problems (Diagnosis) (1) Respiratory failure Current Visit: Yes Status: Acute Plan: Respiratory failure titrate O2 to a sat of 90% on nasal cannula oxygen DC BiPAP she is chronically hypercapnic we will recheck ABG abnormal liver function test vital signs otherwise stable normal white count mildly anemic patient is encephalopathic start tube feeds insert Dobbhoff patient is on Rocephin Klebsiella isolated in the blood reduce dose of hydrocortisone Qualifiers: Chronicity: acute
--- NOTE | 2020-12-22 13:00 | P.PN ---
Date of Service: 12/21/20 Subjective Patient is more awake and alert; following some commands; patient with increased tonicity; fix magnesium and add IV steroids Review of Systems 10-point ROS is otherwise unremarkable Physical Examination - Vital Signs Reviewed - Physical Exam General: Follows some commands Respiratory: Diminished, Crackles/rales Cardiovascular: Regular rate/rhythm, Normal S1 S2, No murmurs Gastrointestinal: Normal bowel sounds, Soft and benign, Non-distended, No tenderness Musculoskeletal: No clubbing, No swelling, No tenderness Neurological: Other (Patient not really waking up following the commands at this time. She does move around in bed and most occasionally) - Studies Medications List Reviewed: Yes Assessment & Plan - Problems (Diagnosis) (1) Rhabdomyolysis Current Visit: Yes Status: Acute (2) Acute renal failure Current Visit: Yes Status: Acute (3) Respiratory acidosis Current Visit: Yes Status: Acute (4) Hypercapnic respiratory failure Current Visit: Yes Status: Acute (5) Respiratory failure Current Visit: Yes Status: Acute Qualifiers: Chronicity: acute (6) COPD exacerbation Onset Date: 06/24/14 Current Visit: No Status: Acute (7) Essential hypertension Onset Date: 03/17/18 Current Visit: No Status: Acute - Plan Plan: 1. Continue with hemodialysis 2. Continue with BiPAP support; ABGs with metabolic acidosis 3. MRI of the brain poor study but no CVA 4. EEG with evidence of metabolic abnormality 5. Continue with Nephrology and neurologic consultation 6. Adjust BiPAP to improve respiratory acidosis; also bicarb to fix metabolic acidosis(baseline bicarb at 45) 7. Once mentation improves we should be able to get her off of BiPAP 8. Will speak with poison Control him 9. GI and DVT prophylaxis Discharge Plan: Home Plan to discharge in: Greater than 2 days - Advance Directives Does patient have a Living Will: No Does patient have a Durable POA for Healthcare: No - Code Status/Comfort Care Code Status Assessed: Yes Code Status: Full Code Critical Care: Yes Time Spent Managing PTS Care (In Minutes): 40
--- NOTE | 2020-12-22 13:51 | RAD REPORT ---
EXAM DESCRIPTION: RAD - Abdomen 1 View (KUB) - 12/22/2020 1:28 pm CLINICAL HISTORY: ngt COMPARISON: Abdomen 1 View (KUB) dated 11/23/2015 FINDINGS: NG tube tip overlies the stomach. IMPRESSION: The NG tube tip overlies the stomach.
[2020-12-22 14:42] LABS: Blood Gas Oxyhemoglobin 92.4 % (94-97); Blood O2 Saturation 94.7 % (92-98.5)
[2020-12-22] MEDS ORDERED: PARICALCITOL 2 MCG/ML VIAL IV SCH (15:00)
--- NOTE | 2020-12-22 16:00 | RAD REPORT ---
EXAM DESCRIPTION: RAD - Chest Single View - 12/22/2020 3:46 pm CLINICAL HISTORY: COPD COMPARISON: Abdomen 1 View (KUB) dated 12/22/2020; Chest Single View dated 12/20/2020; Chest Single View dated 12/19/2020; Chest Single View dated 12/18/2020 FINDINGS: Lines: NG tube overlying the stomach. Lungs: Mild bibasilar airspace disease. Pleural: No significant pleural effusions or pneumothorax. Cardiac: The heart size is within normal limits. Bones: No acute fractures. Other: IMPRESSION: Mild bibasilar airspace disease could represent atelectasis and/or pneumonia. .
--- NOTE | 2020-12-22 16:01 | PN ---
Date of Progress Note: 12/22/2020 Subjective: The patient was admitted with acute kidney injury, respiratory failure, rhabdomyolysis. The patient developed intoxication unknown with osmolar gap. The patient was started on dialysis, b eing dialyzed in a daily basis. Osmolar gap has been closed. The patient is still obtunded. Physical Examination: Vital Signs: Blood pressure 112/67, pulse of 91, afebrile. The patient is still oliguric/anuric, 60 over the last 24 hours. Chest: Crackles bilateral. Heart: S1, S2. Systolic murmur. Abdomen: Morbidly obese, could not appreciate any organomegaly. Extremity: Trace edema. Neuro: The patient moving 4 extremities. No focality. Laboratory Data: The patient's H and H 9.2/27.4, WBC 7.7. Sodium 135, potassium 4.3, bicarb 25, BUN 37, creatinine 2.5, GFR of 18, calcium 7.9, phosphorus 3.4, magnesium 2.3. C-reactive protein of 68 . BNP 10,100. TSH 1.4. Urine analysis negative for infection. PC ratio is 1.3. Current Medications: The patient on include: 1.Ceftriaxone. 2.Albumin. 3.Heparin. 4.Folic acid. 5.Zofran. 6.Magnesium oxide. 7.Fentanyl. 8.Thiamine. Assessment And Plan: 1.Acute kidney injury, multifactorial, poor perfusion, acute tubular necrosis/intoxication, possible secondary to rhabdo/ethylene glycol. Currently osmolar gap has been closed. I do not see the need to do dialysis for today. We will switch the patient to dialysis 3 times a week and we will monitor the patient closely as the patient just weaned from Levophed. We will give the patient a holiday for today. We will do dialysis tomorrow. We will increase the blood flow to have better clearance and we will try to establish better volume control. 2.Hyponatremia secondary to renal failure/depletion, all recovered, resolved. 3.Liver shock, alcohol liver as by primary. 4.Acidosis, multifactorial, secondary to renal failure/ethylene glycol ingestion, currently correcte d, resolve. Osmolar gap has been closed. Keep holding any bicarb drip going to be corrected with di alysis. 5.Secondary hyperparathyroidism supported of baseline of chronic kidney disease. We will start on c alcitriol. 6.Rhabdomyolysis secondary questionable to seizure. With acute kidney injury, patient anuric, we wi ll continue dialysis 3 times a day. We will follow up CK. 7.Altered mental status, questionable of status epileptic. We will follow up with primary and Neuro logy. 8.Septic shock. Continue current antibiotic for the urosepsis. Time spent examining the patient, placing order [id number], examining the patient, reviewing data i ncluding radiology and lab, discussing the case with the senior engineering team leader including Nursing, hospitalist a nd other subspecialty 45 minutes. ELI/TASH Voice ID: [id number] Report ID: [id number]
[2020-12-22 21:44] LABS: Vitamin D 1,25-Dihydroxy Total 9 pg/mL (18-72); Vitamin D,1,25-OH2, D2 <8 pg/mL
[2020-12-23] MEDS ORDERED: FENTANYL CITR 100 MCG/2 ML ONE ×2 (01:29→05:37)
[2020-12-23] MEDS: FENTANYL CITR 100 MCG/2 ML IV PRN ×2 (01:34→05:35)
--- NOTE | 2020-12-23 06:36 | P.PN ---
Subjective Date of Service: 12/23/20 Primary Care Provider: Dr. Barrera Chief Complaint: Respiratory failure Subjective: Other (Received HD yesterday. On bipap.) Physical Examination - Vital Signs Temperature: 98.5 F Blood Pressure: 104/64 Pulse: 95 Respirations: 21 Pulse Ox (%): 97 - Physical Exam General: Other (appears acutely ill.) HEENT: Atraumatic, Normocephalic Neck: Supple, JVD not distended Respiratory: Other (symmetric chest expansion) Cardiovascular: No rubs, No murmurs Gastrointestinal: Soft and benign Musculoskeletal: No clubbing, Other (+R femoral HD catheter in place) Integumentary: No warmth Neurological: Other (+AMS) Lymphatics: No axilla or inguinal lymphadenopathy Urinary: Loza catheter External genitalia: Deferred Rectal: Deferred - Studies Microbiology Data (last 24 hrs): 12/17/20 14:10 Blood - Blood Aerobic Blood Culture - Final No growth in 5 days. 12/17/20 14:10 Blood - Blood Anaerobic Blood Culture - Final No growth in 5 days. Medications List Reviewed: Yes Assessment And Plan - Plan # BREANN 2/2 rhabdomyolysis + ischemic ATN from shock Baseline SCr 0.5-0.7 as of Dec 2019 Remains anuric Now off IV pressor HD received today Cont HD qMWF until sig renal recovery HD access: R femoral HD catheter iPTH 400, indicative of renal fxn decline has been ongoing for the past several wks/mos, which means that her HD dependence is expected to last for at least several weeks Plan on IJ vein permacath placement early next wk & remove R femoral HD catheter Keep fluid balance net even per day d/t full blown ATN Plan for total volume intake no more than 1L/d Start NG tube feeding today MAP goal > 65 Cont loza Strict I/O Monitor renal panel # Shock likely distributive/septic, likely pulmonary source Resolved Extremities warm, obstructive/pulmo embolism/cardiogenic etiology unlikely Initial BCx +CoNS. ? contamination on initial BCx samples. Repeat BCx NGTD. +Pyuria but urine culture neg Abx per primary team TSH wnl, serum B12 not low Cosyntropin stim test showed no e/o primary adrenal insufficiency. 8am serum cortisol wnl F/u 8am serum ACTH. # Acute alcoholic hepatitis Discriminant fxn score low CIWA protocol # Chronic respi acidosis 2/2 COPD in acute exacerbation Baseline ABG pCO2 around 60 Bipap d/c'ed today Dc IV bicarb F/u repeat ABG Empiric abx as above Inhalers per other services # Anemia, thrombocytopenia Haptoglobin not low, LDH high--> no clear e/o TMA Iron panel showed adeq iron stores Monitor # Metabolic encephalopathy Brain MRI neg Received high dose Thiamine IV trial Monitor
[2020-12-23 06:50] LABS: Albumin 2.2 g/dL (3.4-5.0); Magnesium 2.5 mg/dL (1.8-2.4); Phosphorus 3.3 mg/dL (2.5-4.9); Potassium 4.4 mmol/L (3.5-5.1)
[2020-12-23] MEDS ORDERED: THIAMINE 200 MG/2 ML INJ IVP SCH (09:00)
[2020-12-23] MEDS: FOLIC ACID 1 MG in NA CHLORIDE 0.9% 50 ML IV SCH (09:30)
[2020-12-23] MEDS: HYDROCORTISONE SUC 100 MG INJ IV SCH (09:30)
[2020-12-23] MEDS: THIAMINE 200 MG/2 ML INJ IVP SCH (09:30)
[2020-12-23] MEDS: CEFTRIAXONE 1 GM/NS 50 ML 1 GM/50 ML BAG IV SCH (09:30)
[2020-12-23] MEDS: HEPARIN 5000 UNIT/ML 1 ML VIAL SQ SCH ×2 (09:40→21:00)
[2020-12-23] MEDS ORDERED: HYDROCORTISONE SUC 100 MG INJ ONE ×2 (09:59→19:37)
[2020-12-23] MEDS ORDERED: HEPARIN 5000 UNIT/ML 1 ML VIAL ONE ×2 (09:59→21:37)
[2020-12-23] MEDS ORDERED: THIAMINE 200 MG/2 ML INJ ONE (09:59)
[2020-12-23] MEDS ORDERED: D5W 1,000 ML with NA BICARB 8.4% 50 MEQ IV SCH ×2 (10:00)
--- NOTE | 2020-12-23 10:16 | P.PN ---
Date of Service: 12/22/20 Subjective Patient continues to be more responsive. She is really contracted in the upper lower extremity. Spoke to Neurology regarding this and they bleed increased tonicity is related to electrolyte abnormality. Patient does have a baseline bicarb of close to 40. Currently her bicarb is at 24 in the setting of a respiratory acidosis. I then we need to increase her bicarb. Will give her 2 amps of bicarb. Give her 24 hrs of Hydrocortisone. Recheck ABGs in the morning. Awaiting transfer per family's request. Started tube feedings per pulmonary request Review of Systems 10-point ROS is otherwise unremarkable Physical Examination - Vital Signs Reviewed - Physical Exam General: Follows some commands HEENT: Patient is squinting and opening her eyes to command. Pupils are equal and reactive no other abnormalities Respiratory: Diminished, Crackles/rales Cardiovascular: Regular rate/rhythm, Normal S1 S2, No murmurs Gastrointestinal: Normal bowel sounds, Soft and benign, Non-distended, No tenderness Musculoskeletal: No clubbing, No swelling, No tenderness Neurological: Other (Patient not really waking up following the commands at this time. She does move around in bed and most occasionally; rigid and increased tonicity) Skin: Patient with a rash on her left leg. Extends to the back of the leg - Studies Medications List Reviewed: Yes Assessment & Plan - Problems (Diagnosis) (1) Rhabdomyolysis Current Visit: Yes Status: Acute (2) Acute renal failure Current Visit: Yes Status: Acute (3) Respiratory acidosis Current Visit: Yes Status: Acute (4) Hypercapnic respiratory failure Current Visit: Yes Status: Acute (5) Respiratory failure Current Visit: Yes Status: Acute Qualifiers: Chronicity: acute (6) COPD exacerbation Onset Date: 06/24/14 Current Visit: No Status: Acute (7) Essential hypertension Onset Date: 03/17/18 Current Visit: No Status: Acute - Plan Plan: 1. Continue with hemodialysis 2. Off BiPAP; ABGs with metabolic acidosis as her baseline bicarb is 40; patient also with a respiratory acidosis but she is close to her baseline while she is on the BiPAP 3. MRI no acute infarct 4. EEG diffuse metabolic slowing 5. Continue with Nephrology and neurologic consultation; spoke with Neurology about her increased in density 6. May give bicarb to fix metabolic acidosis(baseline bicarb at 45) 7. Mentation is slowly improving. 8. GI and DVT prophylaxis Discharge Plan: Home Plan to discharge in: Greater than 2 days - Advance Directives Does patient have a Living Will: No Does patient have a Durable POA for Healthcare: No - Code Status/Comfort Care Code Status Assessed: Yes Code Status: Full Code Critical Care: Yes Time Spent Managing PTS Care (In Minutes): 40
[2020-12-23 10:41] LABS: Arterial Blood Carboxyhemoglob 1.1 % (0-1.5); Blood Gas Oxyhemoglobin 92.3 % (94-97); Blood O2 Saturation 94.8 % (92-98.5)
[2020-12-23] MEDS ORDERED: SODIUM BICARB 50 MEQ/50ML VIAL ONE (11:40)
[2020-12-23] MEDS ORDERED: ALBUMIN HUMAN 25% 100 ML IV ONE ×2 (12:30→19:00)
[2020-12-23] MEDS: MORPHINE 2 MG/ML SYR IV PRN (13:35)
[2020-12-23] MEDS: ONDANSETRON 4 MG/2 ML VIAL IV PRN (13:36)
[2020-12-23] MEDS ORDERED: ONDANSETRON 4 MG/2 ML VIAL ONE (13:55)
[2020-12-23] MEDS ORDERED: MORPHINE 2 MG/ML SYR ONE (13:55)
[2020-12-23] MEDS: VITAL AF 1,000 ML BOT FT SCH (15:17)
[2020-12-23 15:48] LABS: HBsAG Nonreactive (Nonreactive)
[2020-12-23] MEDS: NOREPINEPHRINE 4 MG in D5W 250 ML IV SCH (18:21)
[2020-12-23] MEDS ORDERED: HYDROCORTISONE SUC 100 MG INJ IV ONE (18:30)
[2020-12-23] MEDS ORDERED: HYDROCORTISONE SUC 100 MG INJ IV SCH (21:00)
[2020-12-23] MEDS: LORazepam 2 MG/ML VIAL IV PRN (21:28)
[2020-12-23] MEDS ORDERED: LORazepam 2 MG/ML VIAL ONE (21:52)
[2020-12-24] MEDS: LORazepam 2 MG/ML VIAL IV PRN ×3 (02:30→20:39)
[2020-12-24] MEDS ORDERED: LORazepam 2 MG/ML VIAL ONE ×3 (02:50→20:13)
[2020-12-24] MEDS: FENTANYL CITR 100 MCG/2 ML IV PRN ×4 (02:50→19:51)
[2020-12-24] MEDS ORDERED: FENTANYL CITR 100 MCG/2 ML ONE ×5 (02:51→20:14)
[2020-12-24 05:13] LABS: Absolute Lymphocytes (CBC) 0.9 K/uL (0.7-4.9); Basophils % 0.1 % (0-1.3); Hematocrit 27.7 % (36.0-45.0); Lymphocytes % 9.2 % (15.3-44.8); MPV 8.5 fL (7.6-11.3); RBC Red Blood Cell Count 2.77 M/uL (3.86-4.86)
[2020-12-24 05:28] LABS: Bilirubin Total 0.7 mg/dL (0.2-1.0); Phosphorus 2.9 mg/dL (2.5-4.9); Potassium 4.1 mmol/L (3.5-5.1)
[2020-12-24 05:29] LABS: Albumin 2.9 g/dL (3.4-5.0); Magnesium 2.4 mg/dL (1.8-2.4); Protein, Total 5.7 g/dL (6.4-8.2)
[2020-12-24 06:05] LABS: Arterial Blood Carboxyhemoglob 1.1 % (0-1.5); Blood Gas Oxyhemoglobin 93.7 % (94-97)
--- NOTE | 2020-12-24 08:02 | P.PN ---
Date of Service: 12/23/20 Subjective ABGs from this afternoon showed 7.18/86/80s/24; patient placed back on BiPAP support. Continue with IV fluids. Mentation stable; CPK improved; minimal UOP Review of Systems 10-point ROS is otherwise unremarkable Physical Examination - Vital Signs Reviewed - Physical Exam General: Follows some commands HEENT: Patient is squinting and opening her eyes to command. Pupils are equal and reactive no other abnormalities Respiratory: Diminished, Crackles/rales Cardiovascular: Regular rate/rhythm, Normal S1 S2, No murmurs Gastrointestinal: Normal bowel sounds, Soft and benign, Non-distended, No tenderness Musculoskeletal: No clubbing, No swelling, No tenderness Neurological: Tone is improved today; Skin: Patient with a rash on her left leg. Extends to the back of the leg - Studies Medications List Reviewed: Yes Assessment & Plan - Problems (Diagnosis) (1) Rhabdomyolysis Current Visit: Yes Status: Acute (2) Acute renal failure Current Visit: Yes Status: Acute (3) Respiratory acidosis Current Visit: Yes Status: Acute (4) Hypercapnic respiratory failure Current Visit: Yes Status: Acute (5) COPD exacerbation Onset Date: 06/24/14 Current Visit: No Status: Acute (6) Essential hypertension Onset Date: 03/17/18 Current Visit: No Status: Acute - Plan Plan: 1. Continue with hemodialysis 2. Off BiPAP; ABGs with respiratory and metabolic acidosis as her baseline bicarb is 40; replace BIPAP 3. MRI no acute infarct 4. EEG diffuse metabolic slowing; repeat on Saturday 5. Continue with Nephrology and neurologic consultation; spoke with Neurology about her increased tone; replaced magnesium; holding off muscle relaxers because of mentation 6. Started low dose bicarb to fix metabolic acidosis(baseline bicarb at 45) 7. Mentation is slowly improving. 8. GI and DVT prophylaxis Discharge Plan: Home Plan to discharge in: Greater than 2 days - Advance Directives Does patient have a Living Will: No Does patient have a Durable POA for Healthcare: No - Code Status/Comfort Care Code Status Assessed: Yes Code Status: Full Code Critical Care: Yes Time Spent Managing PTS Care (In Minutes): 40
[2020-12-24] MEDS ORDERED: CEFTRIAXONE 1000 MG/VIAL ONE (08:13)
[2020-12-24] MEDS ORDERED: HEPARIN 5000 UNIT/ML 1 ML VIAL ONE ×2 (08:13→20:11)
[2020-12-24] MEDS ORDERED: THIAMINE 200 MG/2 ML INJ ONE (08:13)
[2020-12-24] MEDS ORDERED: HYDROCORTISONE SUC 100 MG INJ ONE ×2 (08:13→20:52)
[2020-12-24] MEDS ORDERED: FOLIC ACID 5 MG/ML VIAL ONE (08:14)
[2020-12-24] MEDS ORDERED: NA CHLORIDE 0.9% 0 ML ONE (08:15)
[2020-12-24] MEDS: HEPARIN 5000 UNIT/ML 1 ML VIAL SQ SCH ×2 (08:29→20:22)
[2020-12-24] MEDS: FOLIC ACID 1 MG in NA CHLORIDE 0.9% 50 ML IV SCH (08:29)
[2020-12-24] MEDS: THIAMINE 200 MG/2 ML INJ IVP SCH (08:30)
[2020-12-24] MEDS: HYDROCORTISONE SUC 100 MG INJ IV SCH ×2 (08:30→20:27)
[2020-12-24] MEDS: CEFTRIAXONE 1 GM/NS 50 ML 1 GM/50 ML BAG IV SCH (08:30)
[2020-12-24 08:51] LABS: Anisocytosis SLIGHT; Blood Morphology Comment NOTED (NOT SEEN); Hypochromasia 1+; Platelet Estimate ADEQ
[2020-12-24 08:52] LABS: Basophilic Stippling 1+
[2020-12-24 08:54] LABS: Arterial Blood Carboxyhemoglob 0.8 % (0-1.5); Blood Gas Oxyhemoglobin 91.2 % (94-97); Blood O2 Saturation 93.3 % (92-98.5)
[2020-12-24] MEDS: FUROSEMIDE 40 MG/4 ML VIAL IV SCH ×2 (08:56→17:00)
[2020-12-24] MEDS ORDERED: FUROSEMIDE 40 MG/4 ML VIAL ONE ×2 (09:13→17:16)
--- NOTE | 2020-12-24 11:24 | P.PN ---
Subjective Date of Service: 12/24/20 Primary Care Provider: Dr. Barrera Chief Complaint: Respiratory failure Patient continues to remain on BiPAP unresponsive tolerating tube feeds Review of Systems is unable to be obtained Physical Examination - Vital Signs Temperature: 97.1 F Blood Pressure: 143/94 Pulse: 89 Respirations: 23 Pulse Ox (%): 97 - Physical Exam General: Unresponsive Respiratory: Clear to auscultation bilaterally, Diminished - Studies Medications List Reviewed: Yes Assessment & Plan - Problems (Diagnosis) (1) Respiratory failure Current Visit: Yes Status: Acute Plan: Respiratory failure continues to remain on BiPAP normal oxygen requirement blood gases show severe hypercapnia yesterday thyroid function test is normal abnormal liver function test CPK is elevated normal thyroid function repeat blood cultures negative DC Rocephin patient is on Lasix renal function is improving MRI is negative for stroke Qualifiers: Chronicity: acute
[2020-12-24 12:46] LABS: Arterial Blood Carboxyhemoglob 1.2 % (0-1.5); Blood Gas Oxyhemoglobin 94.2 % (94-97); Blood O2 Saturation 96.7 % (92-98.5)
[2020-12-24] MEDS: NOREPINEPHRINE 4 MG in D5W 250 ML IV SCH (14:30)
[2020-12-24] MEDS ORDERED: HYDROCODONE/APAP 5/325 MG TAB PO ONE (21:25)
[2020-12-24] MEDS ORDERED: HYDROCODONE/APAP 5/325 MG TAB ONE (22:04)
[2020-12-24] MEDS ORDERED: GLUCAGON 1 MG/VIAL IM PRN (22:58)
[2020-12-24] MEDS ORDERED: D50W 25 GM/50 ML SYRINGE IV PRN (22:58)
--- NOTE | 2020-12-25 00:29 | PN ---
Date of Progress Note: 12/24/2020 Chief Complaint: Respiratory failure, acute kidney injury. History Of Present Illness: Patient is dialysis dependent. Urine output is borderline oliguric. The patient has fluid overload. She underwent dialysis with ultrafiltration yesterday. Baseline creatinine level is 0.5-0.6 as of December 2019. The patient developed severe acute kidney injury due to multiple causes including ischemic ATN from renal hypoperfusion due to shock and rhabdomyolysis. Patient is on dialysis and has been dialyzed on Saturday, Saturday, Saturday. Patient was found to have elevated intact PTH, which may be due to severe vitamin D deficiency. 25-hydroxy vitamin D level is pending. The patient developed shock likely due to sepsis with related to pulmonary source. Blood cultures were obtained. Cosyntropin test was ordered to rule out adrenal insufficiency. The patient has history of heavy alcohol intake. She presented to the hospital with altered mental status, metabolic encephalopathy and was found to have positive alcohol level. Osmolar gap was not significantly elevated and likely ethylene glycol and methanol ingestion were not a case. Patient received dialysis during this admission. After she was admitted to the hospital, temporary dialysis catheter was placed for dialysis access and she underwent daily dialysis. Review of Systems: unobtainable. Physical Examination: General: Patient is encephalopathic. Lungs: Clear to auscultation bilaterally. Heart: S1, S2. Abdomen: Soft, benign. Extremities: Edema present. Impression And Plan: 1. Acute kidney injury, but has no evidence of significant renal function recovery, plan is to initiate diuretics in attempt to induce diuresis in attemt to control volemia. Monitor electrolytes and continue dialysis with ultrafiltration. 2. Chronic respiratory acidosis secondary to chronic obstructive pulmonary disease and hypoventilation syndrome. Patient has severe obesity. Bicarbonate drip was stopped. Patient will continue BiPAP as per Pulmonary. 3. Metabolic encephalopathy. Patient is on thiamine. 4. Alcohol intake, acute alcoholic hepatitis, management by primary team. 5. Rhabdomyolysis and ischemic acute tubular necrosis. Monitor CK level. Monitor electrolytes including phosphorus and magnesium. Adjust treatment for electrolytes abnormality accordingly. EB/MODL Voice ID: [id number] Report ID: [id number] NITESH
[2020-12-25] MEDS: FUROSEMIDE 40 MG/4 ML VIAL IV SCH ×3 (00:43→17:34)
[2020-12-25] MEDS ORDERED: FUROSEMIDE 20 MG/ 2ML VIAL ONE (01:08)
[2020-12-25 05:19] LABS: Absolute Lymphocytes (CBC) 1.2 K/uL (0.7-4.9); Hematocrit 27.1 % (36.0-45.0); Lymphocytes % 12.8 % (15.3-44.8); MPV 8.7 fL (7.6-11.3); RBC Red Blood Cell Count 2.74 M/uL (3.86-4.86)
[2020-12-25 05:30] LABS: Albumin 2.6 g/dL (3.4-5.0); Bilirubin Total 0.5 mg/dL (0.2-1.0); Phosphorus 2.5 mg/dL (2.5-4.9); Potassium 4.2 mmol/L (3.5-5.1); Protein, Total 5.3 g/dL (6.4-8.2)
[2020-12-25] MEDS: INSULIN -REGULAR HUMAN 50 UNIT/0.5 ML ML SQ SCH ×4 (05:52→18:00)
[2020-12-25] MEDS: HYDROCODONE/APAP 5/325 MG TAB PO PRN ×3 (05:56→21:03)
[2020-12-25] MEDS ORDERED: HYDROCODONE/APAP 5/325 MG TAB ONE ×3 (06:20→21:27)
[2020-12-25] MEDS: HEPARIN 5000 UNIT/ML 1 ML VIAL SQ SCH ×2 (09:00→21:00)
[2020-12-25] MEDS: FOLIC ACID 1 MG in NA CHLORIDE 0.9% 50 ML IV SCH (09:00)
[2020-12-25] MEDS: HYDROCORTISONE SUC 100 MG INJ IV SCH (09:00)
[2020-12-25] MEDS: THIAMINE 200 MG/2 ML INJ IVP SCH (09:00)
--- NOTE | 2020-12-25 09:23 | P.PN ---
Date of Service: 12/24/20 Subjective Patient clinically is stable. Mentation is still diminished. She is moving around and tried to open her eyes up at times. She does follow commands every now and then. Blood gases are improved this morning. Still waiting for transfer to tertiary care facility per family's request. Patient is starting to make some urine. Patient with increased urine output. Blood pressure is stable. Continue with map greater than 70 for increase renal perfusion. Review of Systems 10-point ROS is otherwise unremarkable Physical Examination - Vital Signs Reviewed - Physical Exam General: Follows some commands occasionally; HEENT: Patient is squinting and opening her eyes to command. Pupils are equal and reactive; grimaces; no other abnormalities Respiratory: Diminished, Crackles/rales Cardiovascular: Regular rate/rhythm, Normal S1 S2, No murmurs Gastrointestinal: Normal bowel sounds, Soft and benign, Non-distended, No tenderness Musculoskeletal: No clubbing, No swelling, No tenderness Neurological: Tone is improved today; Skin: Patient with a rash on her left leg. Extends to the back of the leg - Studies Medications List Reviewed: Yes Assessment & Plan - Problems (Diagnosis) (1) Rhabdomyolysis Current Visit: Yes Status: Acute (2) Acute renal failure Current Visit: Yes Status: Acute (3) Respiratory acidosis Current Visit: Yes Status: Acute (4) Hypercapnic respiratory failure Current Visit: Yes Status: Acute (5) COPD exacerbation Onset Date: 06/24/14 Current Visit: No Status: Acute (6) Essential hypertension Onset Date: 03/17/18 Current Visit: No Status: Acute - Plan Plan: 1. Continue with hemodialysis 2. BiPAP at night. Continue monitoring ABGs. 3. MRI no acute infarct 4. EEG diffuse metabolic slowing; repeat on Saturday 5. Increased tonicity. This is somewhat improved; hold off all muscle relaxing because of mentation; CPK is improving 6. Started low dose bicarb to fix metabolic acidosis(baseline bicarb at 45) 7. Mentation is slowly improving. 8. GI and DVT prophylaxis Discharge Plan: Home Plan to discharge in: Greater than 2 days - Advance Directives Does patient have a Living Will: No Does patient have a Durable POA for Healthcare: No - Code Status/Comfort Care Code Status Assessed: Yes Code Status: Full Code Critical Care: Yes Time Spent Managing PTS Care (In Minutes): 35
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
[2020-12-25] MEDS ORDERED: HYDROCORTISONE SUC 100 MG INJ ONE (09:52)
[2020-12-25] MEDS ORDERED: FUROSEMIDE 40 MG/4 ML VIAL ONE ×2 (09:52→17:58)
[2020-12-25] MEDS ORDERED: HEPARIN 5000 UNIT/ML 1 ML VIAL ONE ×2 (09:52→21:26)
[2020-12-25] MEDS ORDERED: FOLIC ACID 1 MG TABLET ONE (09:52)
[2020-12-25] MEDS: NOREPINEPHRINE 4 MG in D5W 250 ML IV SCH (14:09)
[2020-12-25] MEDS: predniSONE 20 MG TAB PO SCH (21:03)
[2020-12-25] MEDS ORDERED: predniSONE 20 MG TAB ONE (21:26)
[2020-12-25] MEDS ORDERED: ALBUMIN HUMAN 25% 50 ML IV ONE ×2 (22:36→23:13)
[2020-12-26] MEDS: LORazepam 2 MG/ML VIAL IV PRN (00:15)
[2020-12-26] MEDS: FENTANYL CITR 100 MCG/2 ML IV PRN ×2 (00:15→20:30)
[2020-12-26] MEDS ORDERED: LORazepam 2 MG/ML VIAL ONE (00:40)
[2020-12-26] MEDS ORDERED: FENTANYL CITR 100 MCG/2 ML ONE ×2 (00:42→20:48)
[2020-12-26] MEDS: FUROSEMIDE 40 MG/4 ML VIAL IV SCH ×3 (01:00→17:10)
[2020-12-26] MEDS ORDERED: FUROSEMIDE 20 MG/ 2ML VIAL ONE (02:35)
[2020-12-26 05:19] LABS: Absolute Lymphocytes (CBC) 1.7 K/uL (0.7-4.9); Basophils % 0.2 % (0-1.3); Hematocrit 27.2 % (36.0-45.0); Lymphocytes % 16.5 % (15.3-44.8); MPV 9.1 fL (7.6-11.3); RBC Red Blood Cell Count 2.76 M/uL (3.86-4.86)
[2020-12-26 05:39] LABS: Albumin 2.7 g/dL (3.4-5.0); Bilirubin Total 0.5 mg/dL (0.2-1.0); Magnesium 2.2 mg/dL (1.8-2.4); Potassium 4.1 mmol/L (3.5-5.1); Protein, Total 5.3 g/dL (6.4-8.2)
[2020-12-26] MEDS: INSULIN -REGULAR HUMAN 50 UNIT/0.5 ML ML SQ SCH ×5 (06:00→23:36)
--- NOTE | 2020-12-26 08:40 | RAD REPORT ---
EXAM DESCRIPTION: CT - Head Brain Wo Cont - 12/26/2020 6:24 am CLINICAL HISTORY: AMS Headache, drowsiness COMPARISON: Head angio dated 12/07/2019; Ct Stroke Brain Wo Cont dated 12/06/2019 TECHNIQUE: All CT scans are performed using dose optimization technique as appropriate and may inclu de automated exposure control or mA/KV adjustment according to patient size. FINDINGS: No intracranial hemorrhage, hydrocephalus or extra-axial fluid collection.Mild generalized brain atrophy is present with mild periventricular and deep white matter chronic microvascular ische ofelia changes.No areas of brain edema or evidence of midline shift. The paranasal sinuses and mastoids are clear. The calvarium is intact. IMPRESSION: No acute intracranial abnormality.
[2020-12-26] MEDS: HEPARIN 5000 UNIT/ML 1 ML VIAL SQ SCH ×2 (08:52→20:52)
[2020-12-26] MEDS: predniSONE 20 MG TAB PO SCH ×2 (08:53→20:51)
[2020-12-26] MEDS: THIAMINE 200 MG/2 ML INJ IVP SCH (08:53)
[2020-12-26] MEDS: FOLIC ACID 1 MG in NA CHLORIDE 0.9% 50 ML IV SCH (08:53)
[2020-12-26] MEDS ORDERED: predniSONE 20 MG TAB ONE ×2 (09:13→21:14)
[2020-12-26] MEDS ORDERED: FUROSEMIDE 40 MG/4 ML VIAL ONE ×2 (09:14→17:36)
[2020-12-26] MEDS ORDERED: HEPARIN 5000 UNIT/ML 1 ML VIAL ONE ×2 (09:14→21:13)
--- NOTE | 2020-12-26 09:31 | RAD REPORT ---
EXAM DESCRIPTION: RAD - Chest Single View - 12/26/2020 6:06 am CLINICAL HISTORY: pneumonia Chest pain. COMPARISON: Chest Single View dated 12/22/2020; Abdomen 1 View (KUB) dated 12/22/2020; Chest Single View dated 12/20/2020; Chest Single View dated 12/19/2020 FINDINGS: Portable technique limits examination quality. Mild bilateral interstitial lung opacities are unchanged since comparative study. The heart is normal in size. Enteric tube tip descends into the upper abdomen. IMPRESSION: Stable chest since 12/22/2020.
--- NOTE | 2020-12-26 09:54 | RAD REPORT ---
EXAM DESCRIPTION: RAD - Abdomen 1 View (KUB) - 12/26/2020 8:22 am CLINICAL HISTORY: NG placement Pain COMPARISON: Abdomen 1 View (KUB) dated 12/22/2020; Abdomen 1 View (KUB) dated 11/23/2015 FINDINGS: Tip of the enteric tube is in the stomach.
[2020-12-26] MEDS: NOREPINEPHRINE 4 MG in D5W 250 ML IV SCH (10:08)
[2020-12-26] MEDS: HYDROCODONE/APAP 5/325 MG TAB PO PRN ×3 (11:20→22:08)
[2020-12-26] MEDS ORDERED: HYDROCODONE/APAP 5/325 MG TAB ONE ×3 (11:38→21:14)
[2020-12-26] MEDS ORDERED: ALTEPLASE 2 MG/VIAL IV SCH (12:00)
--- NOTE | 2020-12-26 13:21 | P.PN ---
Subjective Date of Service: 12/26/20 Primary Care Provider: Dr. Barrera Chief Complaint: Respiratory failure Subjective: Other (Patient remains with altered mental status. Overall stable.) Physical Examination - Vital Signs Temperature: 98.5 F Blood Pressure: 154/74 Pulse: 87 Respirations: 20 Pulse Ox (%): 95 - Studies Medications List Reviewed: Yes Assessment & Plan Discharge Plan: LTAC Plan to discharge in: 48 Hours Physician Review Additional Text: COVID: negative CXR: COMPARISON: December 2019 TECHNIQUE: AP portable chest image was obtained 12/17/2020 3:26 pm . FINDINGS: Lungs are clear. Heart and vasculature are normal. No measurable pleural effusion and no pneumothorax. No acute bony abnormality seen. No acute aortic findings suspected. IMPRESSION: No acute cardiopulmonary process. Pelvic xray: COMPARISON: PELVIS dated 12/06/2010 TECHNIQUE: AP imaging of the pelvis was obtained. FINDINGS: Exam has technical limitations due to very large body habitus affects and imaging technique. No gross fracture deformity of the pelvis. No fracture or dislocation of either proximal femur. No acute soft tissue finding seen. Lumbar degenerative change with left convex curvature noted. IMPRESSION: No fracture or acute finding identifiable. Exam has significant technical limitation. If patient has pain symptoms out of proportion to these radiographic findings, CT imaging could be performed. Femur xray: COMPARISON: No comparisonsNo comparisonsNo comparisons FINDINGS: No fracture, dislocation or periosteal reaction noted. No acute or suspicious bony finding. Hip joint degenerative changes are present. Right femoral vascular access catheter is in place. Degenerative changes are knee joint. No air or foreign body in the soft tissues. Very large amount of soft tissue limits detail on this examination. Detail at the hip joint is substantially reduced. IMPRESSION: Limited right femur examination shows no acute finding. Tibia Xray: COMPARISON: <Comparisons> FINDINGS: No fracture is identified. There is no dislocation or periosteal reaction noted. No acute or suspicious bony finding. Knee joint degenerative changes are present. No foreign body or other soft tissue abnormality. IMPRESSION: Negative right tibia & fibula examination for acute finding. CT Head/Chest/Ab: COMPARISON: No comparisons TECHNIQUE: Axial [address] head images were obtained. Axial [address] cervical spine images were obtained with sagittal and coronal reconstruction images reviewed. Axial 5 mm images of the chest, abdomen and pelvis were obtained without IV contrast. Sagittal and coronal reconstruction of the chest, abdomen and pelvis performed. All CT scans are performed using dose optimization technique as appropriate and may include automated exposure control or mA/KV adjustment according to patient size. FINDINGS: No intracranial hemorrhage, mass or edema. No midline shift or abnormal fluid collection. Mastoid air cells and paranasal sinuses are clear. No skull fracture. CT cervical spine shows normal height and alignment. Prominent degenerative changes are present. No fracture or acute finding. No disc space narrowing. No suspicious soft tissue finding. Central canal detail is inherently limited. CT chest shows no pneumothorax, pulmonary contusion or pleural fluid collection. No mediastinal hematoma and the aorta and pulmonary arteries are unremarkable for non contrast study. No chest will mass or abnormal axillary finding. No displaced rib fracture or other significant bony finding. CT abdomen and pelvis show no injury to the solid abdominal viscera. Diffuse fatty infiltration the liver is present. No acute gallbladder finding. Wall assessment cannot be made accurately on this study. Gallstones and sludge can be occult on CT imaging. No biliary tree dilatation. No bowel injury or significant finding. No free air, free fluid or abnormal stranding. No urinary bladder abnormality. Disc and bone degenerative changes are present. 20% wedge compression fracture deformity is present in the L3 body with posterior wall height preserved. Age of the fracture is uncertain. Acute fracture is possible. No other compression fracture deformity seen. L3 changes do not involve the pedicles or posterior elements. IMPRESSION: No significant CT Head finding. No significant CT cervical spine finding. Degenerative changes are present. No acute traumatic CT chest finding. No acute traumatic soft tissue CT abdomen or pelvis finding. L3 20% wedge compression fracture deformity is present age uncertain. Acute fracture cannot be excluded. Posterior wall height preserved with no encroachment into the central canal. Correlation is needed with any mid lumbar pain symptoms. ABUS: COMPARISON: none FINDINGS: The liver has an increased echotexture. Liver appears mildly enlarged A gallstone is not seen. The gallbladder wall is not thickened. The biliary tree is normal caliber. Small amount of sludge The right kidney measures 8 centimeters with a normal echotexture. The left kidney measures 10 centimeters with a normal echotexture. The spleen measures 7 centimeters. Small echogenic areas may represent granulomas Limited evaluation of abdominal aorta, pancreas and inferior vena cava secondary to body habitus and overlying bowel gas IMPRESSION: Increased hepatic echotexture consistent with fatty infiltration Mild hepatomegaly MRI Brain: COMPARISON: Head C Spine Cap Wo Con dated 12/17/2020 TECHNIQUE: Sagittal T1-weighted images were obtained along with axial PD, heavily T2-weighted and T2-FLAIR images. Axial DWI and ADC mapping sequences were also obtained along with coronal heavily T2-weighted images. FINDINGS: Exam has substantial motion degradation with repeated sequences showing only marginally improved image quality. Diffusion sequencing shows no acute infarction. There is no evidence for hemorrhage, mass or cerebral edema. No midline shift. Atrophy is minimal. Patient does have scattered chronic ischemic change in the cerebral white matter unlikely in the brainstem as well. Basal ganglia chronic ischemic changes are believed to be minimal with no significant thalamus chronic ischemic change. No extra-axial fluid collections. Miller-matter/white matter junction is preserved. Signal voids are seen as a normal finding in the major intracranial vessels. V entricles are normal. No sella or supra sella mass identified. No globe or orbital content abnormality. No acute or significant mastoid or paranasal sinus finding. IMPRESSION: Substantially motion degraded study shows no acute infarction. No hemorrhage, mass or acute intracranial finding. Patient has little if any identifiable atrophy and only mild chronic ischemic change. Follow up CT Head: COMPARISON: Head angio dated 12/07/2019; Ct Stroke Brain Wo Cont dated 12/06/2019 TECHNIQUE: All CT scans are performed using dose optimization technique as appropriate and may include automated exposure control or mA/KV adjustment according to patient size. FINDINGS: No intracranial hemorrhage, hydrocephalus or extra-axial fluid collection.Mild generalized brain atrophy is present with mild periventricular and deep white matter chronic microvascular ischemic changes.No areas of brain edema or evidence of midline shift. The paranasal sinuses and mastoids are clear. The calvarium is intact. IMPRESSION: No acute intracranial abnormality. Follow up CXR 12/26/2020: COMPARISON: Chest Single View dated 12/22/2020; Abdomen 1 View (KUB) dated ; Chest Single View dated 12/20/2020; Chest Single View dated 12/19/2020 FINDINGS: Portable technique limits examination quality. Mild bilateral interstitial lung opacities are unchanged since comparative study. The heart is normal in size. Enteric tube tip descends into the upper abdomen. IMPRESSION: Stable chest since 12/22/2020. Physical exam: General: Patient remains altered. Overall stable. Currently on BiPAP. HEENT: Other (Mucous membranes dry) Neck: Supple Respiratory: Diminished bilateral. Currently on BiPAP. Cardiovascular: No edema, Normal S1 S2 Capillary refill: <2 Seconds Gastrointestinal: Soft and benign, No tenderness, No masses, No rebound Musculoskeletal: No contractures, No erythema, No tenderness Integumentary: Erythema, Other (Area of excoriation to left thigh) Neurological: Patient remains with altered mental status changes. Impression: Acute encephalopathy secondary to acute renal failure with acute rhabdomyolysis complicated with hyponatremia, hyperkalemia, high anion gap metabolic acidosis with contraction alkalosis Elevated liver function likely related to alcohol abuse with underlying fatty liver and mild hepatomegaly Sepsis with bacteremiaStaph epidermidis and UTIKlebsiella Excoriation to the left upper thigh likely from fall and rug burn Acute on chronic respiratory failure with hypercapnia suspect underlying obstructive sleep apnea with hypoventilation syndrome GERD Obesity, BMI greater than 45 Plan: Acute encephalopathy secondary to acute renal failure with acute rhabdomyolysis complicated with hyponatremia, hyperkalemia, hypocalcemia, high anion gap metabolic acidosis with contraction alkalosis: Patient remains on hemodialysis. Patient likely would require hemodialysis in the future. Surgery to evaluate dialysis catheter as there was some dysfunction this morning. Nephrology continues with Lasix. Rhabdomyolysis resolved. Patient no longer on antibiotic therapy. Repeat blood culture negative. Will repeat urine culture. Repeat CT scan unremarkable. MRI shows no acute stroke. Patient still with encephalopathy likely metabolic. Nurse reports that has agreed to long- term acute care facility placement. Will discuss with . Continue with nephrology recommendations. Elevated liver function likely related to alcohol abuse with underlying fatty liver and mild hepatomegaly: Liver function tests have improved. Continue with folic acid and thiamine. Sepsis with bacteremiaStaph epidermidis and UTIKlebsiella: Patient has been treated with antibiotic therapy. Repeat blood culture negative. Will repeat urine culture. Patient remains on Levophed. Wean off to maintain MAP of greater than 70. Excoriation to the left upper thigh likely from fall and rug burn: Will monitor closely. Continue with wound care Acute on chronic respiratory failure with hypercapnia suspect underlying obstructive sleep apnea with hypoventilation syndrome: Patient remains on BiPAP. Continue to wean off. Continue with pulmonology recommendations. GERD: Continue Protonix Obesity, BMI greater than 45: Will address lifestyle modification education when more alert DVT PPX: Heparin Code status: Full code Discharge Plan: We will pursue long-term care facility placement. Nurse report is agreeable to long-term acute care facility placement. Time Spent Managing Pts Care (In Minutes): 55
--- NOTE | 2020-12-26 14:04 | RAD REPORT ---
EXAM DESCRIPTION: RAD - Abdomen 1 View (KUB) - 12/26/2020 1:58 pm CLINICAL HISTORY: Device placement nasogastric tube placement FINDINGS: The tip of a nasogastric tube lies within the distal stomach.
[2020-12-27] MEDS: FUROSEMIDE 40 MG/4 ML VIAL IV SCH ×3 (01:00→17:46)
[2020-12-27] MEDS ORDERED: FUROSEMIDE 20 MG/ 2ML VIAL ONE (01:27)
[2020-12-27] MEDS: LORazepam 2 MG/ML VIAL IV PRN ×2 (01:45→20:45)
[2020-12-27] MEDS ORDERED: LORazepam 2 MG/ML VIAL ONE ×2 (02:07→21:34)
[2020-12-27] MEDS: FENTANYL CITR 100 MCG/2 ML IV PRN ×3 (02:15→19:52)
[2020-12-27] MEDS ORDERED: FENTANYL CITR 100 MCG/2 ML ONE ×3 (02:43→20:13)
[2020-12-27] MEDS: HYDROCODONE/APAP 5/325 MG TAB PO PRN ×3 (03:00→17:54)
[2020-12-27] MEDS ORDERED: HYDROCODONE/APAP 5/325 MG TAB ONE ×3 (03:18→18:21)
[2020-12-27] MEDS ORDERED: HEPARIN 500 UNIT/5 ML SYR IV ONE (05:18)
[2020-12-27 05:26] LABS: Absolute Lymphocytes (CBC) 0.9 K/uL (0.7-4.9); Basophils % 0.1 % (0-1.3); Hematocrit 28.7 % (36.0-45.0); Lymphocytes % 8.5 % (15.3-44.8); MPV 9.1 fL (7.6-11.3); RBC Red Blood Cell Count 2.89 M/uL (3.86-4.86)
[2020-12-27 05:30] LABS: Albumin 2.8 g/dL (3.4-5.0); Bilirubin Total 0.5 mg/dL (0.2-1.0); Magnesium 2.3 mg/dL (1.8-2.4); Potassium 4.2 mmol/L (3.5-5.1); Protein, Total 5.4 g/dL (6.4-8.2)
[2020-12-27 05:45] LABS: Arterial Blood Carboxyhemoglob 1.1 % (0-1.5); Blood Gas Oxyhemoglobin 93.1 % (94-97); Blood O2 Saturation 95.4 % (92-98.5)
[2020-12-27] MEDS: INSULIN -REGULAR HUMAN 50 UNIT/0.5 ML ML SQ SCH ×3 (06:00→17:52)
--- NOTE | 2020-12-27 06:33 | P.PN ---
Subjective Date of Service: 12/27/20 Primary Care Provider: Dr. Barrera Chief Complaint: Respiratory failure Subjective: Other (Patient more alert this morning. Currently on BiPAP.) Physical Examination - Vital Signs Temperature: 93 F Blood Pressure: 118/55 Pulse: 85 Respirations: 22 Pulse Ox (%): 99 - Studies Medications List Reviewed: Yes Assessment & Plan Discharge Plan: LTAC Plan to discharge in: 48 Hours Physician Review Additional Text: COVID: negative CXR: COMPARISON: December 2019 TECHNIQUE: AP portable chest image was obtained 12/17/2020 3:26 pm . FINDINGS: Lungs are clear. Heart and vasculature are normal. No measurable pleural effusion and no pneumothorax. No acute bony abnormality seen. No acute aortic findings suspected. IMPRESSION: No acute cardiopulmonary process. Pelvic xray: COMPARISON: PELVIS dated 12/06/2010 TECHNIQUE: AP imaging of the pelvis was obtained. FINDINGS: Exam has technical limitations due to very large body habitus affects and imaging technique. No gross fracture deformity of the pelvis. No fracture or dislocation of either proximal femur. No acute soft tissue finding seen. Lumbar degenerative change with left convex curvature noted. IMPRESSION: No fracture or acute finding identifiable. Exam has significant technical limitation. If patient has pain symptoms out of proportion to these radiographic findings, CT imaging could be performed. Femur xray: COMPARISON: No comparisonsNo comparisonsNo comparisons FINDINGS: No fracture, dislocation or periosteal reaction noted. No acute or suspicious bony finding. Hip joint degenerative changes are present. Right femoral vascular access catheter is in place. Degenerative changes are knee joint. No air or foreign body in the soft tissues. Very large amount of soft tissue limits detail on this examination. Detail at the hip joint is substantially reduced. IMPRESSION: Limited right femur examination shows no acute finding. Tibia Xray: COMPARISON: <Comparisons> FINDINGS: No fracture is identified. There is no dislocation or periosteal reaction noted. No acute or suspicious bony finding. Knee joint degenerative changes are present. No foreign body or other soft tissue abnormality. IMPRESSION: Negative right tibia & fibula examination for acute finding. CT Head/Chest/Ab: COMPARISON: No comparisons TECHNIQUE: Axial [address] head images were obtained. Axial [address] cervical spine images were obtained with sagittal and coronal reconstruction images reviewed. Axial 5 mm images of the chest, abdomen and pelvis were obtained without IV contrast. Sagittal and coronal reconstruction of the chest, abdomen and pelvis performed. All CT scans are performed using dose optimization technique as appropriate and may include automated exposure control or mA/KV adjustment according to patient size. FINDINGS: No intracranial hemorrhage, mass or edema. No midline shift or abnormal fluid collection. Mastoid air cells and paranasal sinuses are clear. No skull fracture. CT cervical spine shows normal height and alignment. Prominent degenerative changes are present. No fracture or acute finding. No disc space narrowing. No suspicious soft tissue finding. Central canal detail is inherently limited. CT chest shows no pneumothorax, pulmonary contusion or pleural fluid collection. No mediastinal hematoma and the aorta and pulmonary arteries are unremarkable for non contrast study. No chest will mass or abnormal axillary finding. No displaced rib fracture or other significant bony finding. CT abdomen and pelvis show no injury to the solid abdominal viscera. Diffuse f atty infiltration the liver is present. No acute gallbladder finding. Wall assessment cannot be made accurately on this study. Gallstones and sludge can be occult on CT imaging. No biliary tree dilatation. No bowel injury or significant finding. No free air, free fluid or abnormal stranding. No urinary bladder abnormality. Disc and bone degenerative changes are present. 20% wedge compression fracture deformity is present in the L3 body with posterior wall height preserved. Age of the fracture is uncertain. Acute fracture is possible. No other compression fracture deformity seen. L3 changes do not involve the pedicles or posterior elements. IMPRESSION: No significant CT Head finding. No significant CT cervical spine finding. Degenerative changes are present. No acute traumatic CT chest finding. No acute traumatic soft tissue CT abdomen or pelvis finding. L3 20% wedge compression fracture deformity is present age uncertain. Acute fracture cannot be excluded. Posterior wall height preserved with no encroachment into the central canal. Correlation is needed with any mid lumbar pain symptoms. ABUS: COMPARISON: none FINDINGS: The liver has an increased echotexture. Liver appears mildly enlarged A gallstone is not seen. The gallbladder wall is not thickened. The biliary tree is normal caliber. Small amount of sludge The right kidney measures 8 centimeters with a normal echotexture. The left kidney measures 10 centimeters with a normal echotexture. The spleen measures 7 centimeters. Small echogenic areas may represent granulomas Limited evaluation of abdominal aorta, pancreas and inferior vena cava secondary to body habitus and overlying bowel gas IMPRESSION: Increased hepatic echotexture consistent with fatty infiltration Mild hepatomegaly MRI Brain: COMPARISON: Head C Spine Cap Wo Con dated 12/17/2020 TECHNIQUE: Sagittal T1-weighted images were obtained along with axial PD, heavily T2-weighted and T2-FLAIR images. Axial DWI and ADC mapping sequences were also obtained along with coronal heavily T2-weighted images. FINDINGS: Exam has substantial motion degradation with repeated sequences s howing only marginally improved image quality. Diffusion sequencing shows no acute infarction. There is no evidence for hemorrhage, mass or cerebral edema. No midline shift. Atrophy is minimal. Patie nt does have scattered chronic ischemic change in the cerebral white matter unlikely in the brainstem as well. Basal ganglia chronic ischemic changes are believed to be minimal with no significant thalamus chronic ischemic change. No extra-axial fluid collections. Miller-matter/white matter junction is preserved. Signal voids are seen as a normal finding in the major intracranial vessels. Ventricles are normal. No sella or supra sella mass identified. No globe or orbital content abnormality. No acute or significant mastoid or paranasal sinus finding. IMPRESSION: Substantially motion degraded study shows no acute infarction. No hemorrhage, mass or acute intracranial finding. Patient has little if any identifiable atrophy and only mild chronic ischemic change. Follow up CT Head: COMPARISON: Head angio dated 12/07/2019; Ct Stroke Brain Wo Cont dated 12/06/2019 TECHNIQUE: All CT scans are performed using dose optimization technique as appropriate and may include automated exposure control or mA/KV adjustment according to patient size. FINDINGS: No intracranial hemorrhage, hydrocephalus or extra-axial fluid collection.Mild generalized brain atrophy is present with mild periventricular and deep white matter chronic microvascular ischemic changes.No areas of brain edema or evidence of midline shift. The paranasal sinuses and mastoids are clear. The calvarium is intact. IMPRESSION: No acute intracranial abnormality. Follow up CXR 12/26/2020: COMPARISON: Chest Single View dated 12/22/2020; Abdomen 1 View (KUB) dated 12/22/2020; Chest Single View dated 12/20/2020; Chest Single View dated 12/19/2020 FINDINGS: Portable technique limits examination quality. Mild bilateral interstitial lung opacities are unchanged since comparative study. The heart is normal in size. Enteric tube tip descends into the upper abdomen. IMPRESSION: Stable chest since 12/22/2020. Physical exam: General: Patient remains altered. Overall stable. Currently on BiPAP. HEENT: Other (Mucous membranes dry) Neck: Supple Respiratory: Diminished bilateral. Currently on BiPAP. Cardiovascular: No edema, Normal S1 S2 Capillary refill: <2 Seconds Gastrointestinal: Soft and benign, No tenderness, No masses, No rebound Musculoskeletal: No contractures, No erythema, No tenderness Integumentary: Erythema, Other (Area of excoriation to left thigh) Neurological: Patient remains with altered mental status changes. Impression: Acute encephalopathy secondary to acute renal failure with acute rhabdomyolysis complicated with hyponatremia, hyperkalemia, high anion gap metabolic acidosis with contraction alkalosis Elevated liver function likely related to alcohol abuse with underlying fatty liver and mild hepatomegaly Sepsis with bacteremiaStaph epidermidis and UTIKlebsiella Excoriation to the left upper thigh likely from fall and rug burn Acute on chronic respiratory failure with hypercapnia suspect underlying obstructive sleep apnea with hypoventilation syndrome GERD Obesity, BMI greater than 45 Plan: Acute encephalopathy secondary to acute renal failure with acute rhabdomyolysis complicated with hyponatremia, hyperkalemia, hypocalcemia, high anion gap metabolic acidosis with contraction alkalosis: Patient remains on BiPAP. Surgery evaluated hemodialysis catheter. Surgery to replace hemodialysis catheter tomorrow. Will discuss with nephrology as patient will continue with dialysis. Continue with Lasix. Nephrology continues with Lasix. Rhabdomyolysis resolved. Patient no longer on antibiotic therapy. Repeat blood culture negative. Await repeat urine culture. Repeat CT scan unremarkable. MRI shows no acute stroke. Patient still with encephalopathy likely metabolic but improving. Spoke with yesterday concerning long-term acute care facility placement. He agrees with plan.. Elevated liver function likely related to alcohol abuse with underlying fatty liver and mild hepatomegaly: Liver function tests have improved. Continue with folic acid and thiamine. Sepsis with bacteremiaStaph epidermidis and UTIKlebsiella: Patient has been treated with antibiotic therapy. Repeat blood culture negative. Will repeat urine culture. Patient remains on Levophed. Wean off to maintain MAP of greater than 70. Excoriation to the left upper thigh likely from fall and rug burn: Will monitor closely. Continue with wound care Acute on chronic respiratory failure with hypercapnia suspect underlying obstructive sleep apnea with hypoventilation syndrome: Patient remains on BiPAP. Continue to wean off. Continue with pulmonology recommendations. GERD: Continue Protonix Obesity, BMI greater than 45: Will address lifestyle modification education when more alert DVT PPX: Heparin Code status: Full code Discharge Plan: Continue to pursue long-term care facility placement. is agreeable to long-term acute care facility placement. Time Spent Managing Pts Care (In Minutes): 55
[2020-12-27] MEDS: FOLIC ACID 1 MG in NA CHLORIDE 0.9% 50 ML IV SCH (09:10)
[2020-12-27] MEDS: HEPARIN 5000 UNIT/ML 1 ML VIAL SQ SCH ×2 (09:10→20:52)
[2020-12-27] MEDS: predniSONE 20 MG TAB PO SCH ×2 (09:10→21:00)
[2020-12-27] MEDS: THIAMINE 200 MG/2 ML INJ IV SCH (09:22)
[2020-12-27] MEDS ORDERED: predniSONE 20 MG TAB ONE ×2 (09:33→20:14)
[2020-12-27] MEDS ORDERED: HEPARIN 5000 UNIT/ML 1 ML VIAL ONE ×2 (09:33→20:11)
[2020-12-27] MEDS ORDERED: FUROSEMIDE 40 MG/4 ML VIAL ONE ×2 (09:33→18:09)
[2020-12-27] MEDS ORDERED: THIAMINE 200 MG/2 ML INJ ONE (09:47)
[2020-12-27] MEDS ORDERED: NA CHLORIDE 0.9% 250 ML ONE (09:51)
[2020-12-27] MEDS: NOREPINEPHRINE 4 MG in D5W 250 ML IV SCH (11:02)
[2020-12-27] MEDS: VITAL AF 1,000 ML BOT FT SCH (17:53)
--- NOTE | 2020-12-27 18:07 | PN ---
Date of Progress Note: 12/27/2020 Subjective: The patient was admitted with acute kidney injury, multifactorial, secondary to poor perfusion, ATN, questionable ethylene glycol intoxication, superimposed with rhabdo. The patient has not been awake. The patient received dialysis, was still oliguric. Physical Examination: Vital Signs: Blood pressure 118/55, pulse of 85, afebrile. The patient converted from oliguric to nonoliguric. Currently, the patient had urine output of 1 L. Chest: Crackles bilateral. Heart: S1, S2. Systolic murmur. Abdomen: Morbidly obese. Could not appreciate any organomegaly. Extremities: +1 edema. Laboratory Data: WBC 10.3, H and H 9.5/28.7. Sodium 140, potassium 4.2, bicarb 32, BUN 87, creatinine 3.4 continues to trend up. The patient's last dialysis was Saturday. GFR of 13. PTH 440. Current Medications: The patient on include; 1. Heparin. 2. Lasix 80 t.i.d. 3. Breathing treatment. 4. Zofran. 5. Hydrocodone. 6. Zemplar. 7. Thiamin. Assessment And Plan: 1. Acute kidney injury, multifactorial secondary to rhabdomyolysis, poor perfusion, ATN, toxic ATN secondary to ethyken gkyol ???currently nonoliguric, still on the over volume side. The patient had malfunction of her dialysis catheter. The patient is scheduled for PermCath tomorrow. We will dialyze after. 2. Altered mental status, possible secondary to uremia. Mostly, it was secondary to hypercapnic respiratory failure as her CO2 of 79. The patient was placed on BiPAP. 3. Intoxication, ethylene glycol, with osmolar gap has been closed. We will continue dialysis 3 times a week. 4. Rhabdomyolysis secondary to possible fall and seizure with acute kidney injury and acidosis, resolved. 5. Acidosis secondary to renal failure, intoxication. Follow up with primary. Currently being corrected with dialysis, off any bicarb. 6. Hypercapnic respiratory failure as by Pulmonary. 7. Secondary hyperparathyroidism. Continue calcitriol. 8. Hypotension, currently normal blood pressure. We will follow up. time spent exam the patient face to face placing order , reviewing the date lab and radiology , discussing with nursing stafe and discussing the case with other mental health consultant ICU and hospitalist [employer] TRENT Voice ID: [id number] Report ID: [id number] NITESH
--- NOTE | 2020-12-27 19:31 | PN ---
Date of Progress Note: 12/27/2020 Chief Complaint: Respiratory failure and acute kidney injury. History Of Present Illness: The patient remains borderline oliguric. The patient was to have dialys is today, although catheter was not functioning and the patient is scheduled to have a catheter repla cement. The patient needs a dialysis access, urine output is marginal. Despite diuretics, the patie nt has fluid overload and dialysis will be resumed as soon as the patient has a working catheter. Th e patient needs dialysis for volume control and azotemia continue. Today, electrolytes are stable. The patient developed severe acute kidney injury, and when she came to the hospital, her creatinine l evel was elevated and potassium was up to 7. She had metabolic acidosis. She had ATN secondary to r enal hypoperfusion with superimposed rhabdomyolysis. CK level was significantly elevated. Review of Systems: The patient remains confused and she cannot provide review of systems. She denies pain. Physical Examination: Lungs: Clear to auscultation bilaterally. Heart: S1 and S2. Abdomen: Soft and benign. Extremities: Edema present. Impression And Plan: 1.Acute kidney injury. There is no evidence of significant renal function recovering. Serum creati nine the patient has fluid overload and she will continue with hemodialysis for volume con trol and metabolic clearance. Diuretics will be although used in attempt to control volemia. Monito r electrolytes and renal panel and make further recommendation accordingly. 2.Chronic respiratory acidosis secondary to obstructive pulmonary disease and hypoventilation syndro me. The patient has severe obesity. She was primarily treated with bicarbonate to control potassium and metabolic acidosis. Currently, bicarbonate level has improved and bicarbonate drip is stopped. 3.Metabolic encephalopathy. The patient is on thiamine. The patient has history of heavy alcohol i ntake. 4.Alcohol intake. Acute alcoholic hepatitis management per primary team. EB/MODL Voice ID: [id number] Report ID: [id number]
[2020-12-28] MEDS: FUROSEMIDE 40 MG/4 ML VIAL IV SCH ×2 (01:00→09:42)
[2020-12-28] MEDS ORDERED: FUROSEMIDE 20 MG/ 2ML VIAL ONE ×2 (01:55→22:23)
[2020-12-28] MEDS: LORazepam 2 MG/ML VIAL IV PRN ×2 (04:00→21:30)
[2020-12-28] MEDS: FENTANYL CITR 100 MCG/2 ML IV PRN ×2 (04:24→21:44)
[2020-12-28] MEDS ORDERED: LORazepam 2 MG/ML VIAL ONE ×2 (04:34→21:38)
[2020-12-28] MEDS ORDERED: FENTANYL CITR 100 MCG/2 ML ONE ×3 (04:36→21:39)
[2020-12-28] MEDS: INSULIN -REGULAR HUMAN 50 UNIT/0.5 ML ML SQ SCH ×4 (06:00→18:00)
[2020-12-28 06:14] LABS: Arterial Blood Carboxyhemoglob 1.2 % (0-1.5); Blood Gas Oxyhemoglobin 86.9 % (94-97)
[2020-12-28 06:20] LABS: Absolute Lymphocytes (CBC) 1.5 K/uL (0.7-4.9); Basophils % 0.4 % (0-1.3); Hematocrit 27.8 % (36.0-45.0); MPV 9.7 fL (7.6-11.3); RBC Red Blood Cell Count 2.81 M/uL (3.86-4.86)
--- NOTE | 2020-12-28 06:20 | P.PN ---
Subjective Date of Service: 12/28/20 Primary Care Provider: Dr. Barrera Chief Complaint: Respiratory failure Subjective: Other (Increase sedation noted.) Physical Examination - Vital Signs Temperature: 98 F Blood Pressure: 122/69 Pulse: 79 Respirations: 20 Pulse Ox (%): 99 - Studies Medications List Reviewed: Yes Assessment & Plan Discharge Plan: LTAC Plan to discharge in: Greater than 2 days Physician Review Additional Text: COVID: negative CXR: COMPARISON: December 2019 TECHNIQUE: AP portable chest image was obtained 12/17/2020 3:26 pm . FINDINGS: Lungs are clear. Heart and vasculature are normal. No measurable pleural effusion and no pneumothorax. No acute bony abnormality seen. No acute aortic findings suspected. IMPRESSION: No acute cardiopulmonary process. Pelvic xray: COMPARISON: PELVIS dated 12/06/2010 TECHNIQUE: AP imaging of the pelvis was obtained. FINDINGS: Exam has technical limitations due to very large body habitus affects and imaging technique. No gross fracture deformity of the pelvis. No fracture or dislocation of either proximal femur. No acute soft tissue finding seen. Lumbar degenerative change with left convex curvature noted. IMPRESSION: No fracture or acute finding identifiable. Exam has significant technical limitation. If patient has pain symptoms out of proportion to these radiographic findings, CT imaging could be performed. Femur xray: COMPARISON: No comparisonsNo comparisonsNo comparisons FINDINGS: No fracture, dislocation or periosteal reaction noted. No acute or suspicious bony finding. Hip joint degenerative changes are present. Right femoral vascular access catheter is in place. Degenerative changes are knee joint. No air or foreign body in the soft tissues. Very large amount of soft tissue limits detail on this examination. Detail at the hip joint is substantially reduced. IMPRESSION: Limited right femur examination shows no acute finding. Tibia Xray: COMPARISON: <Comparisons> FINDINGS: No fracture is identified. There is no dislocation or periosteal reaction noted. No acute or suspicious bony finding. Knee joint degenerative changes are present. No foreign body or other soft tissue abnormality. IMPRESSION: Negative right tibia & fibula examination for acute finding. CT Head/Chest/Ab: COMPARISON: No comparisons TECHNIQUE: Axial [address] head images were obtained. Axial [address] cervical spine images were obtained with sagittal and coronal reconstruction images reviewed. Axial 5 mm images of the chest, abdomen and pelvis were obtained without IV contrast. Sagittal and coronal reconstruction of the chest, abdomen and pelvis performed. All CT scans are performed using dose optimization technique as appropriate and may include automated exposure control or mA/KV adjustment according to patient size. FINDINGS: No intracranial hemorrhage, mass or edema. No midline shift or abnormal fluid collection. Mastoid air cells and paranasal sinuses are clear. No skull fracture. CT cervical spine shows normal height and alignment. Prominent degenerative changes are present. No fracture or acute finding. No disc space narrowing. No suspicious soft tissue finding. Central canal detail is inherently limited. CT chest shows no pneumothorax, pulmonary contusion or pleural fluid collection. No mediastinal hematoma and the aorta and pulmonary arteries are unremarkable for non contrast study. No chest will mass or abnormal axillary finding. No displaced rib fracture or other significant bony finding. CT abdomen and pelvis show no injury to the solid abdominal viscera. Diffuse fatty infiltration the liver is present. No acute gallbladder finding. Wall assessment cannot be made accurately on this study. Gallstones and sludge can be occult on CT imaging. No biliary tree dilatation. No bowel injury or significant finding. No free air, free fluid or abnormal stranding. No urinary bladder abnormality. Disc and bone degenerative changes are present. 20% wedge compression fracture deformity is present in the L3 body with posterior wall height preserved. Age of the fracture is uncertain. Acute fracture is possible. No other compression fracture deformity seen. L3 changes do not involve the pedicles or posterior elements. IMPRESSION: No significant CT Head finding. No significant CT cervical spine finding. Degenerative changes are present. No acute traumatic CT chest finding. No acute traumatic soft tissue CT abdomen or pelvis finding. L3 20% wedge compression fracture deformity is present age uncertain. Acute fracture cannot be excluded. Posterior wall height preserved with no encroachment into the central canal. Correlation is needed with any mid lumbar pain symptoms. ABUS: COMPARISON: none FINDINGS: The liver has an increased echotexture. Liver appears mildly enlarged A gallstone is not seen. The gallbladder wall is not thickened. The biliary tree is normal caliber. Small amount of sludge The right kidney measures 8 centimeters with a normal echotexture. The left kidney measures 10 centimeters with a normal echotexture. The spleen measures 7 centimeters. Small echogenic areas may represent granulomas Limited evaluation of abdominal aorta, pancreas and inferior vena cava secondary to body habitus and overlying bowel gas IMPRESSION: Increased hepatic echotexture consistent with fatty infiltration Mild hepatomegaly MRI Brain: COMPARISON: Head C Spine Cap Wo Con dated 12/17/2020 TECHNIQUE: Sagittal T1-weighted images were obtained along with axial PD, heavily T2-weighted and T2-FLAIR images. Axial DWI and ADC mapping sequences were also obtained along with coronal heavily T2-weighted images. FINDINGS: Exam has substantial motion degradation with repeated sequences showing only marginally improved image quality. Diffusion sequencing shows no acute infarction. There is no evidence for hemorrhage, mass or cerebral edema. No midline shift. Atrophy is minimal. Patient does have scattered chronic ischemic change in the cerebral white matter unlikely in the brainstem as well. Basal ganglia chronic ischemic changes are believed to be minimal with no significant thalamus chronic ischemic change. No extra-axial fluid collections. Miller-matter/white matter junction is preserved. Signal voids are seen as a normal finding in the major intracranial vessels. Ventricles are normal. No sella or supra sella mass identified. No globe or orbital content abnormality. No acute or significant mastoid or paranasal sinus finding. IMPRESSION: Substantially motion degraded study shows no acute infarction. No hemorrhage, mass or acute intracranial finding. Patient has little if any identifiable atrophy and only mild chronic ischemic change. Follow up CT Head: COMPARISON: Head angio dated 12/07/2019; Ct Stroke Brain Wo Cont dated 12/06/2019 TECHNIQUE: All CT scans are performed using dose optimization technique as appropriate and may include automated exposure control or mA/KV adjustment according to patient size. FINDINGS: No intracranial hemorrhage, hydrocephalus or extra-axial fluid collection.Mild generalized brain atrophy is present with mild periventricular and deep white matter chronic microvascular ischemic changes.No areas of brain edema or evidence of midline shift. The paranasal sinuses and mastoids are clear. The calvarium is intact. IMPRESSION: No acute intracranial abnormality. Follow up CXR 12/26/2020: COMPARISON: Chest Single View dated 12/22/2020; Abdomen 1 View (KUB) dated 12/22/2020; Chest Single View dated 12/20/2020; Chest Single View dated 12/19/2020 FINDINGS: Portable technique limits examination quality. Mild bilateral interstitial lung opacities are unchanged since comparative study. The heart is normal in size. Enteric tube tip descends into the upper abdomen. IMPRESSION: Stable chest since 12/22/2020. Physical exam: General: Increase sedation noted. Currently on BiPAP. Patient responds to pain. HEENT: Other (Mucous membranes dry) Neck: Supple Respiratory: Diminished bilateral. Currently on BiPAP. Cardiovascular: No edema, Normal S1 S2 Capillary refill: <2 Seconds Gastrointestinal: Soft and benign, No tenderness, No masses, No rebound Musculoskeletal: No contractures, No erythema, No tenderness Integumentary: Erythema, Other (Area of excoriation to left thigh) Neurological: Increase sedation noted Impression: Acute encephalopathy secondary to acute renal failure with acute rhabdomyolysis complicated with hyponatremia, hyperkalemia, high anion gap metabolic acidosis with contraction alkalosis Elevated liver function likely related to alcohol abuse with underlying fatty liver and mild hepatomegaly Sepsis with bacteremiaStaph epidermidis and UTIKlebsiella now with repeat urine culture showing yeast Excoriation to the left upper thigh likely from fall and rug burn Acute on chronic respiratory failure with hypercapnia suspect underlying obstructive sleep apnea with hypoventilation syndrome GERD Obesity, BMI greater than 45 Plan: Acute encephalopathy secondary to acute renal failure with acute rhabdomyolysis complicated with hyponatremia, hyperkalemia, hypocalcemia, high anion gap metabolic acidosis with contraction alkalosis: Case discussed at length with pulmonology. Patient remains on BiPAP due to acute respiratory failure with hypercapnia. Spoke at length with surgery as dialysis catheter to be placed. Nephrology plans for dialysis today. Continue to monitor closely. Repeat urine culture shows yeast. Will start Diflucan. Continue with dialysis and monitor closely. Will discuss with with plan of care. Continue to pursue long- term acute care facility placement. Elevated liver function likely related to alcohol abuse with underlying fatty liver and mild hepatomegaly: Liver function tests have improved. Continue with folic acid and thiamine. Sepsis with bacteremiaStaph epidermidis and UTIKlebsiella now with repeat urine culture showing yeast: Repeat urine culture shows yeast. Will start Diflucan. Will repeat urine culture. Patient remains on Levophed. Wean off to maintain MAP of greater than 70. Excoriation to the left upper thigh likely from fall and rug burn: Will monitor closely. Continue with wound care Acute on chronic respiratory failure with hypercapnia suspect underlying obstructive sleep apnea with hypoventilation syndrome: Continue BiPAP. Continue with pulmonology recommendations. GERD: Continue Protonix Obesity, BMI greater than 45: Will address lifestyle modification education when more alert DVT PPX: Heparin Code status: Full code Discharge Plan: Continue to pursue long-term care facility placement. is agreeable to long-term acute care facility placement. Time Spent Managing Pts Care (In Minutes): 55
[2020-12-28 06:35] LABS: Albumin 2.7 g/dL (3.4-5.0); Bilirubin Total 0.5 mg/dL (0.2-1.0); Magnesium 2.2 mg/dL (1.8-2.4); Potassium 3.8 mmol/L (3.5-5.1); Protein, Total 5.3 g/dL (6.4-8.2)
[2020-12-28] MEDS: HEPARIN 5000 UNIT/ML 1 ML VIAL SQ SCH ×2 (08:02→21:00)
[2020-12-28] MEDS ORDERED: FUROSEMIDE 40 MG/4 ML VIAL ONE (08:39)
[2020-12-28] MEDS ORDERED: predniSONE 20 MG TAB ONE ×2 (08:39→21:40)
[2020-12-28] MEDS ORDERED: THIAMINE 200 MG/2 ML INJ ONE (08:40)
[2020-12-28] MEDS: FOLIC ACID 1 MG in NA CHLORIDE 0.9% 50 ML IV SCH (09:41)
[2020-12-28] MEDS: THIAMINE 200 MG/2 ML INJ IV SCH (09:42)
[2020-12-28] MEDS: predniSONE 20 MG TAB PO SCH ×2 (09:42→21:47)
[2020-12-28] MEDS ORDERED: NA CHLORIDE 0.9% 500 ML ONE (11:17)
[2020-12-28] MEDS ORDERED: NS 0.9% VIAL 10 ML ONE (11:24)
[2020-12-28] MEDS ORDERED: NA CHLORIDE 0.9% 100 ML IV ONE (11:24)
[2020-12-28] MEDS ORDERED: HEPARIN 5000 UNIT/ML 1 ML VIAL ONE ×2 (11:24→21:39)
[2020-12-28] MEDS ORDERED: LIDOCAINE 1% MPF 5 ML VIAL ONE (11:26)
[2020-12-28] MEDS ORDERED: MIDAZOLAM HCL 2 MG/2 ML INJ ONE (11:26)
[2020-12-28] MEDS ORDERED: ONDANSETRON 4 MG/2 ML VIAL ONE (11:26)
[2020-12-28] MEDS ORDERED: propofoL 200 MG/20 ML VIAL IV ONE (11:26)
[2020-12-28] MEDS ORDERED: CIPROFLOXACIN 400mg IV 400 MG/200 ML BAG IV ONE (12:06)
[2020-12-28] MEDS ORDERED: Phenylephrine HCl 10 MG/ML 1 ML VIAL ONE (12:07)
--- NOTE | 2020-12-28 12:36 | P.BOP ---
Preoperative diagnosis: ESRD, morbid obesity Postoperative diagnosis: same Primary procedure: 1. Placement right internal jugular tunneled hemoslpt dialysis cath Secondary procedure: 2. Interpretation of fluoroscopy Other procedure(s): 3. Right neck ultrasound Estimated blood loss: <10cc Specimen: none Findings: as above Anesthesia: MAC Complications: None Transferred to: Recovery Room Condition: Good
--- NOTE | 2020-12-28 12:57 | RAD REPORT ---
EXAM DESCRIPTION: RAD - Fluoroscopy <1 Hour - 12/28/2020 12:38 pm CLINICAL HISTORY: Venous catheter insertion. SPLIT CATH INSERTION COMPARISON: No comparisons FINDINGS: Fluoroscopic imaging is submitted from placement of a venous catheter. Details of the pro cedure not available. Fluoroscopy time: 0.5 minutes
--- NOTE | 2020-12-28 13:08 | PN ---
Date of Progress Note: 12/28/2020 Subjective: The patient was admitted with acute kidney injury secondary to rhabdo, ethylene glycol intoxication, altered mental status. The patient was started on dialysis. The patient's catheter did not work yesterday. The patient is scheduled for catheter exchange today. Physical Examination: Vital Signs: Blood pressure 128/65, pulse of 85, afebrile. The patient had good urine output of 1800. Chest: Clear to auscultation. Heart: S1, S2. Regular. Abdomen: Soft, nontender. Extremity: Trace edema. Neuro: Only responds to pain with open eyes. Not oriented. Laboratory Data: WBC 10.6, H and H 9.3/27.8. Sodium 141, potassium 3.8, bicarb 33, BUN 94, creatinine 3.4, GFR of 13, calcium 9, phosphorus 2.5, magnesium 2.2. Albumin is 2.7. Current Medications: The patient on include; 1. Albuterol. 2. Lorazepam. 3. Lasix 80 t.i.d. 4. Breathing treatment. 5. Prednisone. Assessment And Plan: 1. Acute kidney injury, multifactorial, secondary to rhabdomyolysis, poor perfusion, ATN, ethylene glycol intoxication, nonoliguric, normal volume. We will continue dialysis for the time being and we will follow up. 2. Hypertension, currently low blood pressure. We will keep utilizing the blood pressure to establish better volume control for the patient. I am going to change Lasix to oral to avoid hypotension. 3. Rhabdomyolysis secondary to fall, recovered. 4. Intoxication with ethylene glycol. Osmolar gap has been closed. We will continue dialysis. 5. Altered mental status as by primary. 6. Acidosis secondary to renal failure. Intoxication has been resolved. Continue dialysis. 7. Malfunction of dialysis catheter. Plan for exchange today. 8. Altered mental status secondary to hypercapnic respiratory failure as by primary. Continue BiPAP. 9. COVID pneumonia as by primary. time spent exam the patient face to face placing order , reviewing the date lab and radiology , discussing with nursing stafe and discussing the case with other medical economics consultant ICU and hospitalist [employer] ELI/TASH Voice ID: [id number] Report ID: [id number] NITESH
--- NOTE | 2020-12-28 13:17 | RAD REPORT ---
EXAM DESCRIPTION: RAD - Chest Single View - 12/28/2020 1:06 pm CLINICAL HISTORY: S/P HD CATH PLACEMENT Chest pain. COMPARISON: Abdomen 1 View (KUB) dated 12/26/2020; Abdomen 1 View (KUB) dated 12/26/2020; Chest Sing le View dated 12/26/2020; Chest Single View dated 12/22/2020 FINDINGS: Portable technique limits examination quality. Right-sided venous catheter has been placed with its tip in the upper SVC. A mild twisting is seen tu mageu the lower right neck region. No pneumothorax is evident. Enteric tube descends in the stomach.
--- NOTE | 2020-12-28 13:38 | OP ---
Date of Procedure: 12/28/2020 Surgeon: Gaudencio Dee MD Preoperative Diagnoses: End-stage renal disease, respiratory failure, morbid obesity. Postoperative Diagnoses: End-stage renal disease, respiratory failure, morbid obesity. Procedures: 1.Placement of right internal jugular tunnel HemoSplit hemodialysis catheter. 2.Interpretation of fluoroscopy. 3.Right neck ultrasound. Estimated Blood Loss: Less than 10 mL. Anesthesia: MAC plus local. Specimen: None. Findings: Patent jugular vein. Complications: None. Implant: HemoSplit hemodialysis catheter. Indications: This is the case of a 70-year-old patient, who has been for the last several weeks in [facility] ICU due to multiple problems that include also renal failure. She had an emergent femoral cathete r placed when she came initially. That catheter now is not more functional for hemodialysis, so they want a new dialysis catheter on the upper body area. She has still recurrent basal contractures. S he is still requiring assistant director of admissions with ventilation, but they also need the help for hemodialysis, so it was requested as an emergency. The benefits, alternatives, and risks were explained to the hospital , which include, but not limited to infection, bleeding, damage to adjacent structures, anesthesia co mplication, hemothorax, pneumothorax, PE, endocarditis, TN, and even . He also understands this may not relieve any symptoms. They might need more than one surgical intervention. They understood , signed a consent. Once again, before surgery, we sat together with the primary doctors, Dr. Mix , Dr. Elliott and discussed the pros and cons of this intervention with the request from [facility] a nd we understand the risks, but also the benefits, so decision was done to proceed specially after di scussion with the . Procedure In Detail: The patient was brought to the operating room, placed in supine position. Anes thesia was induced without complication. The right neck and chest were prepped and draped in usual s terile fashion. Lidocaine was applied for area to be incised after the time-out. Ultrasound of the neck was done to localize the internal jugular vein and 18-gauge needle was placed after found to be patent. An 18-gauge needle was placed in internal jugular vein at the first attempt. Guidewire was passed through. Needle was removed. Guidewire was got into superior vena cava using fluoroscopy. W e proceeded to make a small incision in the right upper chest, tunneled catheter underneath the skin to meet that new incision in the right upper neck. At that moment, I proceeded to place dilators thr ough the guidewire using fluoroscopy guidance and we have introducer catheter. Guidewire was removed . The catheter was placed in. This was in Trendelenburg position and then the introducer was peeled off. Excellent backflow and inflow. The line was secured in place with 3-0 nylon. The skin was cl osed in subcuticular fashion with 3-0 chromic and then 3-0 nylon to secure the catheter. The patient was brought back to normal position and the patient sent to recovery in stable condition and chest x -ray will be ordered stat. I discussed the case with the primary doctor and also Dr. Segovia. She is still requiring IV access. The IV access on her is very limited due to the body habitus, so they will be using the right femoral line as a central line to provide access that include the vasoconstri ctors and then they will remove it when it is no longer needed. She understands the limitations for her IV access. ANDREI/TASH Voice ID: [id number] Report ID: [id number]
[2020-12-28 13:49] LABS: Arterial Blood Carboxyhemoglob 0.9 % (0-1.5)
[2020-12-28 13:50] LABS: Blood Gas Oxyhemoglobin 96.7 % (94-97)
[2020-12-28] MEDS ORDERED: FLUCONAZOLE 100mg IVPB 100 MG/50 ML BAG IV SCH (15:00)
--- NOTE | 2020-12-28 15:11 | PN ---
Date of Progress Note: 12/28/2020 Reason For Service: Placement of a hemodialysis catheter. History Of Present Illness: This is a case of a 70-year-old patient who has been in the hospital for several weeks with multiple medical problems that include also a respiratory failure, for which she need bankruptcy assistant. She also comes with vital signs instability, for what she needs Levophed. We did an emergent femoral catheter several weeks ago, but that catheter does not want to function properly an ymore, and they are still to give a dialysis in this patient. She is still unresponsive and she is o n a BiPAP machine, still there, but I understand her situation of having to get dialysis f or this patient, so they asked for an emergent placement of a new hemodialysis catheter. She is morb idly obese, structures, but once again it is needed. She comes to the recovery today. We saw the patient yesterday and before we go to surgery. We also noticed the patient is un responsive, so we brought up here the interlocking installer and also the primary doctor. We have a conferenc e here next to the patient between us, anesthesia, primary doctor trying to determine the emergent of the situation and the need for that and apparently still need hemodialysis catheter. So, Anesthesia will proceed with the same plan with placement of hemodialysis catheter. We previously explained be fore the patient's family, in this case the ; the benefits, alternatives, and risks of placeme nt of a HemoSplit hemodialysis catheter on a normal situation, which include infection, bleeding, dam age to adjacent structures, anesthesia complication, DVT, pulmonary emboli, pneumothorax, hemothorax, SC, even . She is right now on blood pressure with Levophed, so that create some ot her risk which at this time maybe even . Still dialysis is needed and the catheter in the groin is not working anymore. It did at this time. It has been there for a long time. I understand that it cannot be used now for hemodialysis. So, we are going to try to place a new one in with the risk s and benefits fully explained. Her blood work today shows hemoglobin of 9.3 with WBC count of 10.6 and INR of last time was 0.8. ABG is still pending. Potassium is 3.8, with creatinine of 3.41. The Anesthesia will re-evaluate with the and then with the help with the primary doctor, they will decide if it is possible to undergo the surgery and if she is at least susceptible then we have to proceed accordingly. ANDREI/TASH Voice ID: [id number] Report ID: [id number]
[2020-12-28] MEDS: HYDROCODONE/APAP 5/325 MG TAB PO PRN (18:01)
[2020-12-28] MEDS: NOREPINEPHRINE 4 MG in D5W 250 ML IV SCH (18:25)
[2020-12-28] MEDS: FUROSEMIDE 40 MG TABLET PO SCH (21:00)
[2020-12-28] MEDS ORDERED: NOREPINEPHRINE 4mg/D5W 250mL 4 MG/250 ML BAG IV ONE (21:27)
[2020-12-29 00:05] VITALS: TEMP 98
[2020-12-29] MEDS: HYDROCODONE/APAP 5/325 MG TAB PO PRN ×2 (01:45→14:02)
[2020-12-29] MEDS ORDERED: HYDROCODONE/APAP 5/325 MG TAB ONE ×2 (02:10→14:27)
[2020-12-29] MEDS: FENTANYL CITR 100 MCG/2 ML IV PRN ×2 (02:48→11:02)
[2020-12-29] MEDS: LORazepam 2 MG/ML VIAL IV PRN ×2 (02:49→12:18)
[2020-12-29] MEDS ORDERED: LORazepam 2 MG/ML VIAL ONE ×2 (03:13→12:43)
[2020-12-29] MEDS ORDERED: FENTANYL CITR 100 MCG/2 ML ONE ×2 (03:13→11:27)
[2020-12-29] MEDS: INSULIN -REGULAR HUMAN 50 UNIT/0.5 ML ML SQ SCH ×3 (05:28→12:00)
[2020-12-29 05:37] LABS: Albumin 2.4 g/dL (3.4-5.0); Bilirubin Total 0.5 mg/dL (0.2-1.0); Magnesium 2.1 mg/dL (1.8-2.4)
[2020-12-29 05:38] LABS: Absolute Lymphocytes (CBC) 0.4 K/uL (0.7-4.9); Basophils % 0.3 % (0-1.3); Hematocrit 27.3 % (36.0-45.0); Lymphocytes % 3.9 % (15.3-44.8); MPV 9.8 fL (7.6-11.3); RBC Red Blood Cell Count 2.75 M/uL (3.86-4.86)
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
[2020-12-29 06:46] LABS: Platelet Estimate ADEQ; White Blood Cell Scan OK (OK)
[2020-12-29 06:47] LABS: Basophilic Stippling 1+; Blood Morphology Comment NOTED (NOT SEEN); Target Cells FEW
--- NOTE | 2020-12-29 07:35 | RAD REPORT ---
EXAM DESCRIPTION: RAD - Chest Single View - 12/29/2020 5:26 am CLINICAL HISTORY: Follow up resp. failure COMPARISON: December 28 TECHNIQUE: AP portable chest image was obtained 12/29/2020 5:26 am . FINDINGS: Lungs are clear. Heart and vasculature are normal. No measurable pleural effusion and no p neumothorax. No acute bony abnormality seen. No acute aortic finding. Right-sided double-lumen vascul ar access catheter is unchanged. Enteric tube remains in place with the tip below the diaphragm, off the field of view. IMPRESSION: No acute cardiopulmonary process. No significant change from comparison study.
[2020-12-29 08:27] VITALS: O2SAT 97
[2020-12-29] MEDS ORDERED: FUROSEMIDE 40 MG/4 ML VIAL ONE (08:49)
[2020-12-29] MEDS ORDERED: HEPARIN 5000 UNIT/ML 1 ML VIAL ONE (08:49)
[2020-12-29] MEDS ORDERED: predniSONE 20 MG TAB ONE (08:49)
[2020-12-29] MEDS ORDERED: THIAMINE 200 MG/2 ML INJ ONE (08:49)
[2020-12-29] MEDS: HEPARIN 5000 UNIT/ML 1 ML VIAL SQ SCH (08:53)
[2020-12-29] MEDS: predniSONE 20 MG TAB PO SCH (08:53)
[2020-12-29] MEDS: THIAMINE 200 MG/2 ML INJ IV SCH (08:53)
[2020-12-29] MEDS: FOLIC ACID 1 MG in NA CHLORIDE 0.9% 50 ML IV SCH (08:53)
[2020-12-29] MEDS: FUROSEMIDE 40 MG TABLET PO SCH (08:58)
[2020-12-29] MEDS ORDERED: FUROSEMIDE 40 MG TABLET ONE (09:24)
[2020-12-29 12:10] VITALS: BP 133/68
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
[2020-12-29] MEDS ORDERED: ARFORMOTEROL TARTRATE 15 MCG/2 ML VIAL.NEB NEB SCH (13:01)
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
[2020-12-29] MEDS ORDERED: MIDODRINE HCL 5 MG TABLET PO SCH (14:00)
== END 2020-12-29 16:00 | DRG 871 ==
LOC: ER 13:17 → ERHOLD 19:07
PROVIDERS: ADMIT Family Medicine; ATTEND Family Medicine
PROC: 06HM33Z Insertion of Infusion Device into Right Femoral Vein, Percutaneous Approach (ICD-10-PCS; 2020-12-17)
PROC: 5A09557 Assistance with Respiratory Ventilation, Greater than 96 Consecutive Hours, Continuous Positive Airway Pressure (ICD-10-PCS; 2020-12-17)
PROC: 5A1D70Z Performance of Urinary Filtration, Intermittent, Less than 6 Hours Per Day (ICD-10-PCS; 2020-12-18)
PROC: 5A1D70Z Performance of Urinary Filtration, Intermittent, Less than 6 Hours Per Day (ICD-10-PCS; 2020-12-19)
PROC: 5A1D70Z Performance of Urinary Filtration, Intermittent, Less than 6 Hours Per Day (ICD-10-PCS; 2020-12-21)
PROC: 5A1D70Z Performance of Urinary Filtration, Intermittent, Less than 6 Hours Per Day (ICD-10-PCS; 2020-12-23)
PROC: 5A1D70Z Performance of Urinary Filtration, Intermittent, Less than 6 Hours Per Day (ICD-10-PCS; 2020-12-26)
PROC: 05HM33Z Insertion of Infusion Device into Right Internal Jugular Vein, Percutaneous Approach (ICD-10-PCS; 2020-12-28)
PROC: 5A1D70Z Performance of Urinary Filtration, Intermittent, Less than 6 Hours Per Day (ICD-10-PCS; 2020-12-28)
PROC: 0JH63XZ Insertion of Tunneled Vascular Access Device into Chest Subcutaneous Tissue and Fascia, Percutaneous Approach (ICD-10-PCS; principal; 2020-12-28 11:15)
DX: A41.1 Sepsis due to other specified staphylococcus (principal); J96.22 Acute and chronic respiratory failure with hypercapnia; J96.21 Acute and chronic respiratory failure with hypoxia; N17.0 Acute kidney failure with tubular necrosis; G93.41 Metabolic encephalopathy; R65.21 Severe sepsis with septic shock; N39.0 Urinary tract infection, site not specified; M62.82 Rhabdomyolysis; E87.1 Hypo-osmolality and hyponatremia; E87.2 Acidosis; E87.3 Alkalosis; Z68.43 Body mass index [BMI] 50.0-59.9, adult; E66.2 Morbid (severe) obesity with alveolar hypoventilation; N25.81 Secondary hyperparathyroidism of renal origin; J44.1 Chronic obstructive pulmonary disease with (acute) exacerbation; B96.1 Klebsiella pneumoniae [K. pneumoniae] as the cause of diseases classified elsewhere; E87.5 Hyperkalemia; K70.0 Alcoholic fatty liver; S70.312A Abrasion, left thigh, initial encounter; W18.30XA Fall on same level, unspecified, initial encounter; K21.9 Gastro-esophageal reflux disease without esophagitis; G47.33 Obstructive sleep apnea (adult) (pediatric); J44.9 Chronic obstructive pulmonary disease, unspecified; E03.9 Hypothyroidism, unspecified; K70.10 Alcoholic hepatitis without ascites; R40.4 Transient alteration of awareness; F10.129 Alcohol abuse with intoxication, unspecified; F17.210 Nicotine dependence, cigarettes, uncomplicated; Z20.822 Contact with and (suspected) exposure to COVID-19
CPT/HCPCS: 36415; 51702; 70450; 70551; 71045; 71250; 72125; 72170; 74018; 76000; 76700; 80048; 80053; 80061; 80069; 80074; 80076; 80202; 80307; 80320; 80329; 81001; 81003; 81015; 82024; 82085; 82140; 82306; 82533; 82550; 82553; 82570; 82607; 82652; 82728; 82746; 82805; 82947; 83010; 83540; 83605; 83615; 83690; 83735; 83880; 83930; 83935; 83970; 84100; 84132; 84145; 84156; 84300; 84439; 84443; 84466; 84484; 84550; 85025; 85610; 85652; 85730; 86038; 86140; 87040; 87077; 87086; 87088; 87186; 87205; 90935; 92610; 93005; 94640; 94660; 95816; 99285; C1752; C9113; J0610; J0692; J0696; J0744; J0834; J1450; J1642; J1644; J1720; J1940; J2250; J2270; J2370; J2405; J2704; J3010; J3370; J3411; J3475; J7030; J7040; J7050; J7060; J7512; P9047; U0003

== ENCOUNTER 2021-02-17 13:23 | Inpatient (IN) | payer OTHER ==
--- OUTSIDE RECORDS SUMMARY | 2021-02-17 13:27 | XMS REPORT | Continuity of Care Document ---
:1950 Author Organization [facility] t Address [address] [place] [address] Care Team Providers Name Role Phone Syed Stout Attending Clinician Syed RADER Attending Clinician Unavailable Doctor Unassigned, Name Attending Clinician Unavailable Anh DUMONT Attending Clinician Unavailable Payers Payer Name Policy Type Policy Number Effective Date Expiration Date S ource Problems Condition Condition Condition Status Onset Resolution Last Treating Co mments Source Name Details Category Date Date Treatment Clinician Date No known No known Disease Unive rs active active ity of problems problems [facility] Allergies, Adverse Reactions, Alerts Allergy Allergy Status Severity Reaction(s) Onset Inactive Treating Comm ents Source Name Type Date Date Clinician NO KNOWN Drug Active Univers ALLERGIE Class ity of S [facility] Social History Social Habit Start Date Stop Date Quantity Comments Source History [facility] University o f Alcohol Std [place] [facility] History [facility] University o f Alcohol Binge [place] [facility] Exposure to Not sure University of SARS-CoV-2 [facility] (event) Branch Tobacco use and 2020-10-14 2020-10-14 Never used Universit y of exposure 00:00:00 00:00:00 [facility] Branch Alcohol intake 2020-10-14 2020-10-14 Lifetime University of 00:00:00 00:00:00 non-drinker [facility] (finding) Branch History SDOH 2020-10-14 2020-10-14 1 University o f Alcohol Frequency 00:00:00 00:00:00 [facility] edical [place] Sex Assigned At 1950-10-231950-10-23 Universit y of 00:00:00 00:00:00 [facility] Smoking Status Start Date Stop Date Source Unknown if ever smoked [facility] Never smoker [facility] Medications Ordered Filled Start Stop Current Ordering Indication Dosage Frequency Signature Comments Components Source Medication Medication Date Date Medication? Clinician (SIG) Name Name triamcinolo 2020- No [id number] 40mg Univers ne 10-14 ity of acetonide 17:00: 15:50 [place] (KENALOG) 00 :00 Medical injection Branch 40 mg triamcinolo 2020- No [id number] 40mg Univers ne 10-14 ity of acetonide 17:00: 15:49 [place] (KENALOG) 00 :00 Medical injection Branch 40 mg triamcinolo 2020- No [id number] 40mg 40 mg, Univers ne 10-14 Intramuscu ity of acetonide 17:00: 15:49 [place] 00 :00 1 dose, Medical injection Fri Branch 40 mg 10/14/20 at 1200, Routine triamcinolo 2020- No [id number] 40mg 40 mg, Univers ne 10-14 Intramuscu ity of acetonide 17:00: 15:50 [place]CE[place] ([place] 00 :00 1 dose, Medical injection Fri Branch 40 mg 10/14/20 at 1200, Routine triamcinolo 2020- No [id number] 40mg Univers ne 10-14 ity of acetonide 17:00: 15:50 [place] (KENALOG) 00 :00 Medical injection Branch 40 mg triamcinolo 2020- No [id number] 40mg Univers ne 10-14 ity of acetonide 17:00: 15:49 [place] (KENALOG) 00 :00 Medical injection Branch 40 mg triamcinolo 2020- No [id number] 40mg 40 mg, Univers ne 10-14 Intramuscu ity of acetonide 17:00: 15:49 [place]CE, [place] ([place] 00 :00 1 dose, Medical injection Fri Branch 40 mg 10/14/20 at 1200, Routine triamcinolo 2020-0 1- No [id number] 40mg 40 mg, Univers ne 10-14 Intramuscu ity of acetonide 17:00: 15:50 [place]CE, [place] (KE[place]LOG) 00 :00 1 dose, Medical injection Fri Branch 40 mg 10/14/20 at 1200, Routine albuterol 2020-0 Yes Univers 2.5 mg /3 7-29 ity of mL (0.083 00:00: [place] %) 00 Medical nebulizer Branch solution TRELEGY Yes Univers ELLIPTA 7-29 ity of 100-62.5-25 00:00: [place] mcg DsDv 00 Medical Branch gabapentin 0 Yes Univers 300 mg 7-29 ity of capsule 00:00: [place] 00 Medical Branch ipratropium 0 Yes Univer s 0.02 % 7-29 ity of nebulizer 00:00: [place] solution 00 Medical Branch albuterol Yes Univers 2.5 mg /3 7-29 ity of mL (0.083 00:00: [place] %) 00 Medical nebulizer Branch solution TRELEGY Yes Univers ELLIPTA 7-29 ity of 100-62.5-25 00:00: [place] mcg DsDv 00 Medical Branch gabapentin 0 Yes Univers 300 mg 7-29 ity of capsule 00:00: [place] 00 Medical Branch ipratropium 0 Yes Univer s 0.02 % 7-29 ity of nebulizer 00:00: [place] solution 00 Medical Branch albuterol 0 Yes Univers 2.5 mg /3 7-29 ity of mL (0.083 00:00: [place] %) 00 Medical nebulizer Branch solution TRELEGY 0 Yes Univers ELLIPTA 7-29 ity of 100-62.5-25 00:00: [place] mcg DsDv 00 Medical Branch gabapentin 0 Yes Univers 300 mg 7-29 ity of capsule 00:00: [place] 00 Medical Branch ipratropium 0 Yes Univer s 0.02 % 7-29 ity of nebulizer 00:00: [place] solution 00 Medical Branch albuterol 2020-0 Yes Univers 2.5 mg /3 7-29 ity of mL (0.083 00:00: [place] %) 00 Medical nebulizer Branch solution TRELEGY 0 Yes Univers ELLIPTA 7-29 ity of 100-62.5-25 00:00: [place] mcg DsDv 00 Medical Branch gabapentin 2020-0 Yes Univers 300 mg 7-29 ity of capsule 00:00: [place] 00 Medical Branch ipratropium 2020-0 Yes Univer s 0.02 % 7-29 ity of nebulizer 00:00: [place] solution 00 Medical Branch albuterol 2020-0 Yes Univers 2.5 mg /3 7-29 ity of mL (0.083 00:00: [place] %) 00 Medical nebulizer Branch solution TRELEGY 0 Yes Univers ELLIPTA 7-29 ity of 100-62.5-25 00:00: [place] mcg DsDv 00 Medical Branch gabapentin 2020-0 Yes Univers 300 mg 7-29 ity of capsule 00:00: [place] 00 Medical Branch ipratropium 2020-0 Yes Univer s 0.02 % 7-29 ity of nebulizer 00:00: [place] solution 00 Medical Branch fluticasone 2020-0 Yes Univer s propionate 6-23 ity of 50 00:00: [place] mcg/actuati 00 Medical on nasal Branch spray fluticasone 2020-0 Yes Univer s propionate 6-23 ity of 50 00:00: [place] mcg/actuati 00 Medical on nasal Branch spray fluticasone 2020-0 Yes Univer s propionate 6-23 ity of 50 00:00: [place] mcg/actuati 00 Medical on nasal Branch spray fluticasone 2020-0 Yes Univer s propionate 6-23 ity of 50 00:00: [place] mcg/actuati 00 Medical on nasal Branch spray fluticasone 2020-0 Yes Univer s propionate 6-23 ity of 50 00:00: [place] mcg/actuati 00 Medical on nasal Branch spray DULoxetine 2020-0 Yes Univers 60 mg 6-07 ity of capsule 00:00: [place] 00 Medical Branch atorvastati 2020-0 Yes Univer s n 40 mg 6-07 ity of tablet 00:00: [place] 00 Medical Branch levothyroxi 2020-0 Yes Univer s ne 50 mcg 6-07 ity of tablet 00:00: [place] 00 Medical Branch DULoxetine 2020-0 Yes Univers 60 mg 6-07 ity of capsule 00:00: [place] 00 Medical Branch atorvastati 2020-0 Yes Univer s n 40 mg 6-07 ity of tablet 00:00: [place] 00 Medical Branch levothyroxi 2020-0 Yes Univer s ne 50 mcg 6-07 ity of tablet 00:00: [place] 00 Medical Branch DULoxetine 1-0 Yes Univers 60 mg 6-07 ity of capsule 00:00: [place] 00 Medical Branch atorvastati 2020-0 Yes Univer s n 40 mg 6-07 ity of tablet 00:00: [place] [facility] levothyroxi 2020-0 Yes Univer s ne 50 mcg 6-07 ity of tablet 00:00: [place] [facility] DULoxetine 2020-0 Yes Univers 60 mg 6-07 ity of capsule 00:00: [place] [facility] atorvastati 2020-0 Yes Univer s n 40 mg 6-07 ity of tablet 00:00: [place] [facility] levothyroxi 2020-0 Yes Univer s ne 50 mcg 6-07 ity of tablet 00:00: [place] [address] Medical Branch DULoxetine 2020-0 Yes Univers 60 mg 6-07 ity of capsule 00:00: [place] [address] Medical Branch atorvastati 2020-0 Yes Univer s n 40 mg 6-07 ity of tablet 00:00: [place] [facility] levothyroxi 2020-0 Yes Univer s ne 50 mcg 6-07 ity of tablet 00:00: [place] 00 Medical Branch lisinopriL 2020-0 Yes Univers 20 mg 6-05 ity of tablet 00:00: [place] 00 Medical Branch potassium 2021-0 Yes Univers chloride 10 6-05 ity of mEq CR 00:00: [place] tablet 00 Medical Branch lisinopriL 2021-0 Yes Univers 20 mg 6-05 ity of tablet 00:00: [place] [address] Medical Branch potassium 2021-0 Yes Univers chloride 10 6-05 ity of mEq CR 00:00: [place] tablet 00 Medical Branch lisinopriL 2020-0 Yes Univers 20 mg 6-05 ity of tablet 00:00: [place] 00 Medical Branch potassium 2021-0 Yes Univers chloride 10 6-05 ity of mEq CR 00:00: [place] tablet 00 Medical Branch lisinopriL 2021-0 Yes Univers 20 mg 6-05 ity of tablet 00:00: [place] 00 [facility] potassium 2020-0 Yes Univers chloride 10 6-05 ity of mEq CR 00:00: [place] tablet 00 [facility] lisinopriL Yes Univers 20 mg 6-05 ity of tablet 00:00: [place] 00 [facility] potassium 2020-0 Yes Univers chloride 10 6-05 ity of mEq CR 00:00: [place] tablet 00 [facility] Macrobid Macrobid 2020- No Na Barrera [address] [facility] 08-05 [facility] Vital Signs Vital Name Observation Time Observation Value Comments Source Body height 2020-10-14 15:20:00 157.5 cm [facility] Body weight 2020-10-14 15:20:00 106.595 kg [facility] BMI 2020-10-14 15:20:00 42.98 kg/m2 [facility] Procedures Procedure Date / Time Performed Performing Clinician Faisal e XR KNEE 3 VW BILATERAL 2020-10-14 15:09:03 Aureliano aRder [facility] ASSIGNMENT OF BENEFITS 2020-10-14 14:47:40 Doctor Unassigned, No [facility] Encounters Start End Encounter Admission Attending Care Care Encounter Source Date/Time Date/Time Type Type Clinicians Facility Department ID 2020-10-14 2020-10-14 [facility] [id number] Univers 09:51:55 23:59:00 Encounter Aureliano [place] [id number] ity of [place] [id number] [place] [facility] [id number] [facility] hunter [address] [place] 2020-10-14 2020-10-14 [facility] [id number] Univers 10:14:41 11:07:28 Visit [facility] [id number] it y of Surgical [id number] Yaya as Specialti [id number] Me dical es 198 [facility] 2020-10-14 2020-10-14 Outpatient R DIOR [facility] [id number] Univers 00:00:00 00:00:00 AURELIANO [id number] [facility] 2020-10-14 2020-10-14 Outpatient Sendy RADER [facility] [id number] Univers 00:00:00 00:00:00 AURELIANO [facility] 2020-10-14 2020-10-14 Orders Doctor [place] [id number] Univers 00:00:00 00:00:00 Only Unassigned, [place] [id number] ity [facility] [id number] Yaya as [id number] [address] 2020-10-07 2020-10-07 Outpatient Sendy DUMONT [facility] [id number] Univers 08:30:00 08:30:00 ELLE [facility] 2020-10-03 2020-10-03 Outpatient [facility] [id number] [facility] 00[facility] 2020-09-27 2020-09-27 Outpatient [facility] [id number] [facility] 00:00[facility] 2020-09-27 2020-09-27 Outpatient [facility] [id number] [facility] 00[facility]00[facility]00 [facility] 2020-08-24 2020-08-24 Outpatient [facility] [id number] [facility] 00[facility] 2020-08-24 2020-08-24 Outpatient [facility] [id number] [facility] 00:[facility]00 [facility] 2020-03-30 2020-03-30 Outpatient [facility] [id number] [facility] 00:[facility] 2020-02-08 2020-02-08 Outpatient [facility] [id number] [facility] 2019-12-28 2019-12-28 Outpatient [facility] [id number] [facility] 2019-12-21 2019-12-21 Outpatient [facility] [id number] [facility] 2019-12-21 2019-12-21 Outpatient [facility] [id number] [facility] 2019-12-14 2019-12-14 Outpatient [facility] [id number] [facility] 2019-08-27 2019-08-27 [facility] [id number] 08:35:00 08:35:00 t [place] [facility] [employer] Luke s - Drive [facility] Medicine l Medicine Outpati ent Clinics 2019-08-10 2019-08-10 [facility] [id number] 14:58:00 14:58:00 t [place] [facility] [employer] It s - Drive [facility] Medicine l Medicine Outpati ent Clinics 2019-08-07 2019-08-07 [facility] [id number] 15:31:00 15:31:00 t Need[place] Need[place] [employer] s - Drive [facility] l Medicine Outpati ent Clinics 2019-08-06 2019-08-06 [facility] [id number] 08:00:00 08:00:00 t [place] [employer] s - Drive [facility] Medicine l Medicine Outpati ent Clinics 2019-07-06 2019-07-06 [facility] [id number] [facility] 16:34:00 16:34:00 t [place] [employer] [employer] s - Drive [facility] Medicine l Medicine Outpati ent Clinics 2019-06-11 2019-06-11 [facility] [id number] [facility] 11:14:00 11:14:00 t [place] [employer] [employer] s - Drive [facility] Medicine l Medicine Outpati ent Clinics 2019-05-28 2019-05-28 [facility] [id number] [facility] 16:13:00 16:13:[address] Luke s - Drive [facility] Medicine l Medicine Outpati ent Clinics 2019-03-19 2019-03-19 [facility] [id number] [facility] 16:53:00 16:53:[address] Luke s - Drive [facility] Medicine l Medicine Outpati ent Clinics 2019-03-17 2019-03-17 [facility] [id number] [facility] 08:02:00 08:02:[address] Luke s - Drive [facility] Medicine l Medicine Outpati ent Clinics 2019-03-11 2019-03-11 [facility] [id number] [facility] 15:56:00 15:56:[address] Luke s - Drive [facility] Medicine Outpati ent Clinics 2019-03-11 2019-03-11 [facility] [id number] 08:53:00 08:53:[address] Luke s - Drive [facility] [place] Medicine Outpati ent Clinics 2019-03-10 2019-03-10 [facility] [id number] [facility] 13:40:00 13:40:[address] Luke s - Drive [facility] Medicine Medicine Outpati ent Clinics 2018-10-28 2018-10-28 [facility] [id number] [facility] 11:44:00 11:44:[address] Luke s - Drive [facility] Medicine l Medicine Outpati ent Clinics 2018-10-09 2018-10-09 [facility] [id number] 09:34:00 09:34:[address] Luke s - Drive [facility] Medicine l Medicine Outpati ent Clinics 2018-09-01 2018-09-01 [facility] [id number] [facility] [facility] 08:40:00 08:40:[address] Luke s - Drive [facility] l Medicine Outpati ent Clinics 2018-08-29 2018-08-29 [facility] [id number] [facility] 13:39:00 13:39:[address] Luke s - Drive [facility] l Medicine Outpati ent Clinics 2018-06-13 2018-06-13 [facility] [id number] 14:41:00 14:41:00 t [place] [facility] [employer] Luke s - Drive [facility] Medicine Medicine Outpati ent Clinics 2018-06-11 2018-06-11 [facility] [id number] 09:59:00 09:59:00 t [place] [employer] [employer] s - Drive [facility] [place] Medicine Outpati ent Clinics 2018-06-03 2018-06-03 [facility] [id number] [facility] 11:00:00 11:00:00 t [place] [employer] s - Drive [facility] [place] Medicine Outpati ent Clinics 2018-05-12 2018-05-12 [facility] [id number] [facility] 09:43:00 09:43:00 t [place] [employer] s - Drive [facility] [place] Medicine Outpati ent Clinics 2018-04-17 2018-04-17 [facility] [id number] [facility] 13:45:00 13:45:00 t Specialty/U Mikaela kes - Specialty rology Memori a /Urology Clinic l Clinic Outpati ent Clinics 2018-04-03 2018-04-03 [facility] [id number] [facility] 08:31:00 08:31:00 t [place] [employer] s - Drive [facility] [place] Medicine Outpati ent Clinics 2018-03-28 2018-03-28 [facility] [id number] 13:10:00 13:10:00 t [place] [employer] s - Drive [facility] [place] Medicine Outpati ent Clinics 2018-03-28 2018-03-28 [facility] [id number] [facility] 10:52:00 10:52:00 t Specialty/U Mikaela kes - Specialty rology Memori a /Urology Clinic l Clinic Outpati ent Clinics 2018-03-26 2018-03-26 [facility] [id number] 16:01:00 16:01:00 t [place] [employer] s - Drive [facility] [place] Medicine Outpati ent Clinics 2018-03-25 2018-03-25 [facility] [id number] [facility] 08:15:00 08:15:00 [facility] 2017-12-16 2017-12-16 Outpatient [facility] [id number] [facility] 00:[facility] 00:00:00 [facility] ent [facility] Results Test Description Test Time Test Comments Results Result Sourc e Comments XR KNEE 3 VW 2020-10-02 1. University o f BILATERAL 3 ?Osteoarthritis. [facility] 17:10:44 RL: [id number] Branch HISTORY: ?bilateral knee pain COMPARISON: ?None. FINDINGS: 3 views of the bilateral knees demonstrate normal alignment. ?No fracture,foreign body, or focal osseous lesion is identified. Right greater than left osteoarthritis is present with joint spacenarrowing and osteophyte formation. [facility], Radiant Results Inft User - 10/14/2020 12:11 PM CDT HISTORY: bilateral knee pain COMPARISON: None.FINDINGS:3 views of the bilateral knees demonstrate normal alignment. No fracture,foreign body, or focal osseous lesion is identified.Right greater than left osteoarthritis is present with joint spacenarrowing and osteophyte formation.IMPRESSIO N1. Osteoarthritis.RL: 1105
[2021-02-17 13:48] LABS: Absolute Lymphocytes (CBC) 1.4 K/uL (0.7-4.9); Hematocrit 30.2 % (36.0-45.0); Lymphocytes % 26.1 % (15.3-44.8); MPV 9.5 fL (7.6-11.3); RBC Red Blood Cell Count 3.06 M/uL (3.86-4.86)
[2021-02-17 13:57] LABS: Protime INR 1.02
[2021-02-17 14:10] LABS: ALT/SGPT 30 U/L (12-78); AST/SGOT 21 U/L (15-37); Albumin 2.5 g/dL (3.4-5.0); Alkaline Phosphatase 98 U/L (45-117); BUN Blood Urea Nitrogen 15 mg/dL (7-18); Bicarbonate 40 mmol/L (21-32); Bilirubin Direct 0.2 mg/dL (0-0.2); Bilirubin Total 0.5 mg/dL (0.2-1.0); Glucose Level 104 mg/dL (74-106); Magnesium 1.7 mg/dL (1.8-2.4); NT PRO-BNP 552 pg/mL (<125); Potassium 4.1 mmol/L (3.5-5.1); Protein, Total 5.6 g/dL (6.4-8.2); Sodium Level 139 mmol/L (136-145); Troponin (Emerg Dept Use Only) < 0.02 ng/mL (0.0-0.045)
--- NOTE | 2021-02-17 14:21 | RAD REPORT ---
EXAM DESCRIPTION: RAD - Chest Single View - 02/17/2021 2:15 pm CLINICAL HISTORY: CHEST PAIN COMPARISON: Chest Single View dated 12/29/2020; Chest Single View dated 12/28/2020; Abdomen 1 View ( KUB) dated 12/26/2020; Abdomen 1 View (KUB) dated 12/26/2020 FINDINGS: Lines: None. Lungs: No evidence of edema or pneumonia. Pleural: No significant pleural effusions or pneumothorax. Cardiac: The heart size is within normal limits. Bones: No acute fractures. Other: IMPRESSION: No acute cardiopulmonary disease.
--- NOTE | 2021-02-17 16:02 | EDPHYS ---
Physician Documentation [facility] Name: Earnest Baker Age: 70 yrs Sex: Female : 1950 Arrival Date: 02/17/2021 Time: 13:24 Bed 2 Private MD: ED Physician Lobo Sauceda HPI: 02/17 17:27 This 70 yrs old Female presents to ER via EMS with complaints of Chest Pain. kdr 17:27 The patient or guardian reports chest pain that is located primarily in the substernal kdr area, anterior chest wall, left. Onset: suddenly, this morning. The pain radiates to the left arm, the left shoulder. Associated signs and symptoms: Pertinent positives: diaphoresis, shortness of breath. The chest pain is described as aching, dull, a heaviness, a pressure. Duration: The patient or guardian reports multiple episodes, that are intermittent, that wax and wane, with no pattern. Modifying factors: The symptoms are alleviated by nothing. the symptoms are aggravated by nothing. Severity of pain: At its worst the pain was mild in the emergency department the pain has resolved. The patient has not experienced similar symptoms in the past. The patient has not recently seen a physician. Patient complains of 6 out of 10 chest pain that began about an hour and a half in earnest prior to arrival. She did have some chest discomfort shortly after awaking this morning but it got precipitously worse just prior to arrival. She has not had pain exactly like this before but has had chest pain in the past. She felt diaphoretic and short of breath with the pain . Historical: - Allergies: 15:59 No Known Allergies; al4 - Home Meds: 15:59 duloxetine 30 mg oral cpDR 1 cap once daily [Active]; ergocalciferol (vitamin D2) 1,250 al4 mcg (50,000 unit) oral cap every saturday [Active]; folic acid 1 mg Oral tab 1 tab once daily [Active]; Lasix 40 mg Oral tab 1 tab once daily [Active]; melatonin 5 mg Oral tab nightly [Active]; multivitamin with minerals oral cap daily [Active]; potassium chloride 20 mEq oral TbER 1 tab once daily [Active]; prednisone 10 mg Oral tab 1 tab once daily [Active]; Prilosec 20 mg Oral cpDR 1 cap 2 times per day [Active]; thiamine HCl (vitamin B1) 100 mg oral tab daily [Active]; zinc sulfate 220 mg Oral cap daily [Active]; 17:54 lisinopril 10 mg Oral tab [Active]; al4 - PMHx: 13:29 COPD; Hypertension; al4 13:50 Hypothyroidism; Diabetes mellitus; Gastroesophageal reflux disease; al4 - Immunization history:: Client reports receiving the 2nd dose of the Covid vaccine, Pneumococcal vaccine is not up to date, Flu vaccine is not up to date. - Social history:: Smoking status: Patient/guardian denies using tobacco. ROS: 17:27 Constitutional: Negative for fever, chills, and weight loss, Eyes: Negative for injury, kdr pain, redness, and discharge, Neck: Negative for injury, pain, and swelling, Respiratory: Negative for shortness of breath, cough, wheezing, and pleuritic chest pain, Abdomen/GI: Negative for abdominal pain, nausea, vomiting, diarrhea, and constipation, Back: Negative for injury and pain, : Negative for injury, bleeding, discharge, and swelling, MS/Extremity: Negative for injury and deformity, Skin: Negative for injury, rash, and discoloration, Neuro: Negative for headache, weakness, numbness, tingling, and seizure activity. Psych: Negative for depression, anxiety, suicide ideation, homicidal ideation, and hallucinations, Allergy/Immunology: Negative for hives, rash, and allergies, Endocrine: Negative for neck swelling, polydipsia, polyuria, polyphagia, and marked weight changes, Hematologic/Lymphatic: Negative for swollen nodes, abnormal bleeding, and unusual bruising. 17:27 Cardiovascular: Positive for chest pain, Negative for edema, orthopnea, palpitations. Exam: 17:27 Constitutional: This is a well developed, well nourished patient who is awake, alert, kdr and in no acute distress. Patient is very obese and essentially bedbound Head/Face: Normocephalic, atraumatic. Eyes: Pupils equal round and reactive to light, extra-ocular motions intact. Lids and lashes normal. Conjunctiva and sclera are non-icteric and not injected. Cornea within normal limits. Periorbital areas with no swelling, redness, or edema. Neck: Trachea midline, no thyromegaly or masses palpated, and no cervical lymphadenopathy. Supple, full range of motion without nuchal rigidity, or vertebral point tenderness. No Meningismus. Chest/axilla: Normal chest wall appearance and motion. Nontender with no deformity. No lesions are appreciated. Cardiovascular: Regular rate and rhythm with a normal S1 and S2. No gallops, murmurs, or rubs. Normal PMI, no JVD. No pulse deficits. Respiratory: Lungs have equal breath sounds bilaterally, clear to auscultation and percussion. No rales, rhonchi or wheezes noted. No increased work of breathing, no retractions or nasal flaring. Abdomen/GI: Soft, non-tender, with normal bowel sounds. No distension or tympany. No guarding or rebound. No evidence of tenderness throughout. Back: No spinal tenderness. No costovertebral tenderness. Full range of motion. Skin: Warm, dry with normal turgor. Normal color with no rashes, no lesions, and no evidence of cellulitis. MS/ Extremity: Pulses equal, no cyanosis. Neurovascular intact. Full, normal range of motion. Neuro: Awake and alert, GCS 15, oriented to person, place, time, and situation. Cranial nerves II-XII grossly intact. Motor strength 5/5 in all extremities. Sensory grossly intact. Cerebellar exam normal. Normal gait. Psych: Awake, alert, with orientation to person, place and time. Behavior, mood, and affect are within normal limits. 17:27 Cardiovascular: Edema: 1+ edema to level of left ankle, left foot, left toes, right kdr ankle, right foot and right toes. Vital Signs: 13:26 BP 130 / 76; Pulse 99; Resp 18 S; Temp 98.6; Pulse Ox 100% on NC; Pain 7/10; al4 14:00 BP 127 / 70; Pulse 90; Resp 24 S; Pulse Ox 100% on NC; al4 15:00 BP 120 / 77; Pulse 93; Resp 23 S; Pulse Ox 100% on NC; al4 17:00 BP 123 / 80; Pulse 75; Resp 24 S; Pulse Ox 95% on NC; jd3 18:00 BP 131 / 65; Pulse 81; Resp 26 S; Pulse Ox 95% on R/A; al4 21:55 tw5 21:55 Patient refusing nursing staff to obtain vitals " I am not staying here!" tw5 MDM: 16:01 Patient medically screened. kdr 17:27 Data reviewed: vital signs, nurses notes, lab test result(s), radiologic studies. kdr Counseling: I had a detailed discussion with the patient and/or guardian regarding: the historical points, exam findings, and any diagnostic results supporting the discharge/admit diagnosis, lab results, radiology results, the need for further work-up and treatment in the hospital. 02/17 13:34 Order name: Basic Metabolic Panel; Complete Time: 16:00 kdr 02/17 13:34 Order name: CBC with Diff; Complete Time: 16:00 kdr 02/17 13:34 Order name: LFT's; Complete Time: 16:00 kdr 02/17 13:34 Order name: Magnesium; Complete Time: 16:00 kdr 02/17 13:34 Order name: NT PRO-BNP; Complete Time: 16:00 kdr 02/17 13:34 Order name: PT-INR; Complete Time: 16:00 kdr 02/17 13:34 Order name: Troponin (emerg Dept Use Only); Complete Time: 16:00 kdr 02/17 13:34 Order name: XRAY Chest (1 view); Complete Time: 16:00 kdr 02/17 13:34 Order name: EKG; Complete Time: 13:35 kdr 02/17 13:34 Order name: Cardiac monitoring; Complete Time: 13:35 kdr 02/17 13:34 Order name: EKG - Nurse/Tech; Complete Time: 13:35 kdr 02/17 13:34 Order name: IV Saline Lock; Complete Time: 13:35 kdr 02/17 18:41 Order name: COVID-19 SARS RT PCR (Document "Date of Onset" if Symptomatic) cs9 02/17 21:39 Order name: SARS-COV-2 RT PCR EDMS 02/17 13:34 Order name: Labs collected and sent; Complete Time: 13:35 kdr 02/17 13:34 Order name: O2 Per Protocol; Complete Time: 13:35 kdr 02/17 13:34 Order name: O2 Sat Monitoring; Complete Time: 13:35 kdr Administered Medications: No medications were administered Disposition Summary: 02/17/21 16:01 Hospitalization Ordered Hospitalization Status: Observation kdr Location: Telemetry/MedSurg (observation) kdr Condition: Fair kdr Problem: new kdr Symptoms: have improved kdr Bed/Room Type: Standard kdr Provider: Kavitha Saucedo(02/17/21 16:04) kdr Room Assignment: 218(02/17/21 22:04) prema Diagnosis - Chest pain, unspecified kdr Forms: - Medication Reconciliation Form kdr - SBAR form kdr Signatures: Dispatcher [employer] EDJaniya Loco RN RN mw Lobo Sauceda MD MD kdr Enmanuel Farnsworth Corrections: (The following items were deleted from the chart) 16:04 16:01 Rj Carrasquillo kdr kdr 22:04 16:01 kdr prema
--- NOTE | 2021-02-17 16:02 | ER ---
Nurse's Notes [facility] Name: Earnest Baker Age: 70 yrs Sex: Female : 1950 Arrival Date: 02/17/2021 Time: 13:24 Bed 2 Private MD: Diagnosis: Chest pain, unspecified Presentation: 02/17 13:26 Chief complaint: EMS states: "patient is complaining of chest pain 6/10 aggravated with al4 movement and L arm numbness. chest pain started about an hour and a half ago.". Coronavirus screen: Vaccine status: Patient reports receiving the 2nd dose of the covid vaccine. Ebola Screen: No symptoms or risks identified at this time. Initial Sepsis Screen: Does the patient meet any 2 criteria? No. Patient's initial sepsis screen is negative. Does the patient have a suspected source of infection? No. Patient's initial sepsis screen is negative. Risk Assessment: Do you want to hurt yourself or someone else? Patient reports no desire to harm self or others. Onset of symptoms was February 17, 2021. 13:26 Method Of Arrival: EMS: [facility] al4 13:26 Acuity: AMANDA 3 al4 Historical: - Allergies: 15:59 No Known Allergies; al4 - Home Meds: 15:59 duloxetine 30 mg oral cpDR 1 cap once daily [Active]; ergocalciferol (vitamin D2) 1,250 al4 mcg (50,000 unit) oral cap every saturday [Active]; folic acid 1 mg Oral tab 1 tab once daily [Active]; Lasix 40 mg Oral tab 1 tab once daily [Active]; melatonin 5 mg Oral tab nightly [Active]; multivitamin with minerals oral cap daily [Active]; potassium chloride 20 mEq oral TbER 1 tab once daily [Active]; prednisone 10 mg Oral tab 1 tab once daily [Active]; Prilosec 20 mg Oral cpDR 1 cap 2 times per day [Active]; thiamine HCl (vitamin B1) 100 mg oral tab daily [Active]; zinc sulfate 220 mg Oral cap daily [Active]; 17:54 lisinopril 10 mg Oral tab [Active]; al4 - PMHx: 13:29 COPD; Hypertension; al4 13:50 Hypothyroidism; Diabetes mellitus; Gastroesophageal reflux disease; al4 - Immunization history:: Client reports receiving the 2nd dose of the Covid vaccine, Pneumococcal vaccine is not up to date, Flu vaccine is not up to date. - Social history:: Smoking status: Patient/guardian denies using tobacco. Screenin:59 Abuse screen: Denies threats or abuse. Nutritional screening: No deficits noted. al4 Tuberculosis screening: No symptoms or risk factors identified. 17:51 Fall Risk IV access (20 points). Ambulatory Aid- Crutches/Cane/Walker (15 pts). Gait- al4 Weak (10 pts.). Mental Status- Overestimates/Forgets Limitations (15 pts.). Total Garcia Fall Scale indicates High Risk Score (45 or more points). Fall prevention measures have been instituted. Side Rails Up X 2 Placed Close to Nursing Station Frequent Obs/Assessments Occuring As available patient and family educated on Fall Prevention Program and Strategies. Assessment: 13:51 General: Appears in no apparent distress. comfortable, Behavior is calm, cooperative. al4 Pain: Complains of pain in left chest Pain radiates to left arm Pain began 2 hours ago. Neuro: Level of Consciousness is awake, alert, obeys commands, Oriented to person, place, time. Cardiovascular: Reports chest pain, "shortness of breath and sweating when pain started" Heart tones present Capillary refill < 3 seconds Patient's skin is warm and dry. Respiratory: Airway is patent Respiratory effort is unlabored, Respiratory pattern is symmetrical, tachypnea Breath sounds are clear. GI: No signs and/or symptoms were reported involving the gastrointestinal system. Bowel sounds present X 4 quads. Abd is soft and non tender. : No signs and/or symptoms were reported regarding the genitourinary system. EENT: No signs and/or symptoms were reported regarding the EENT system. Derm: No signs and/or symptoms reported regarding the dermatologic system. Musculoskeletal: Reports weakness in left arm numbness in left arm. 14:37 Reassessment: Delia Baker() [phone]. call with disposition/ride home. jd3 15:00 Reassessment: No changes from previously documented assessment. Patient is alert, al4 oriented x 3, equal unlabored respirations, skin warm/dry/pink. 16:00 Reassessment: No changes from previously documented assessment. Patient and/or family al4 updated on plan of care and expected duration. Pain level reassessed. 17:00 Reassessment: Patient and/or family updated on plan of care and expected duration. Pain al4 level reassessed. Patient is alert, oriented x 3, equal unlabored respirations, skin warm/dry/pink. 17:53 Reassessment: No changes from previously documented assessment. Patient and/or family al4 updated on plan of care and expected duration. Pain level reassessed. Patient is alert, oriented x 3, equal unlabored respirations, skin warm/dry/pink. 18:30 Reassessment: pt reported wanting to leave AMA. provider notified and Delia(family) jd3 notified. 18:45 Reassessment: Patient is alert, oriented x 3, equal unlabored respirations, skin jd3 warm/dry/pink. pt refusing to stay in hospital. pt signed AMA form. 18:50 Reassessment: pt unable to bear weight and lowered to the ground when attempting to jd3 move to wheelchair with with 2 nurse lift assist. 18:55 Reassessment: pt lifted to wheelchair with 4 nurse staff lift assist to wheelchair jd3 while Delia(family) arrived. 19:05 Reassessment: Patient is alert, oriented x 3, equal unlabored respirations, skin jd3 warm/dry/pink. pt assisted out to Delia's (family) vehicle while Delia is yelling at pt on how she should not be coming home. saying "what the fuck you mean your are going home. you can't even fucking stand up!" nursing staff explained that we can not hold pt against her will. nursing staff X 2: [place] attempted with Delia's help to help pt into vehicle. pt again unable to bear weight and lower to the ground. pt with deepak herrera, delia, and other pt's family assited pt back to wheelchair and brought back into ER lobby Delia refused to help any further repeating profane language and drove off. placed next to the pt phone with wheelchair in the ER lobby. Inessa EM charge nurse notified of situation. 19:36 Reassessment: pt assisted back to room with the help of Inessa EM charge nurse. jd3 19:40 Reassessment: Patient is alert, oriented x 3, equal unlabored respirations, skin jd3 warm/dry/pink. pt wheeling self out of room towards ER lobby. observed by Inessa EM and Deepak automotive lube technician. 20:36 General: Patient requested to be put back in the bed. Security had to be called to tw5 bedside to help lift patient. Took 5 people to get Ms. Baker into the bed. 21:49 General: Reports Patient is under the belief that she is able to walk up her stair at tw5 her house. Was talking to her cousin at the bedside and states " I will just get help.". Vital Signs: 13:26 BP 130 / 76; Pulse 99; Resp 18 S; Temp 98.6; Pulse Ox 100% on NC; Pain 7/10; al4 14:00 BP 127 / 70; Pulse 90; Resp 24 S; Pulse Ox 100% on NC; al4 15:00 BP 120 / 77; Pulse 93; Resp 23 S; Pulse Ox 100% on NC; al4 17:00 BP 123 / 80; Pulse 75; Resp 24 S; Pulse Ox 95% on NC; jd3 18:00 BP 131 / 65; Pulse 81; Resp 26 S; Pulse Ox 95% on R/A; al4 21:55 tw5 21:55 Patient refusing nursing staff to obtain vitals " I am not staying here!" tw5 ED Course: 13:24 Patient arrived in ED. ds1 13:29 Triage completed. al4 13:30 Arm band placed on. al4 13:34 Lobo Sauceda MD is Attending Physician. kdr 13:35 EKG done, by ED staff, reviewed by Lobo Sauceda MD. mb7 13:46 Enmanuel Farnsworth is Primary Nurse. al4 13:59 Patient has correct armband on for positive identification. Bed in low position. Side al4 rails up X2. bus driver/monitor on. Pulse ox on. NIBP on. Door closed. Noise minimized. 13:59 Oxygen administration via nasal cannula \\T\\ 3L/min. al4 14:15 XRAY Chest (1 view) In Process Unspecified. EDMS 16:01 Rj Carrasquillo is Hospitalizing Provider. kdr 16:04 Kavitha Saucedo MD is Hospitalizing Provider. kdr 18:25 IV discontinued, intact, bleeding controlled, No redness/swelling at site. Pressure jd3 dressing applied. 18:25 No provider procedures requiring assistance completed. jay 19:15 Primary Nurse role handed off by Enmanuel Farnsworth tw5 19:15 Ara Aguayo is Primary Nurse. tw5 22:44 COVID-19 SARS RT PCR (Document "Date of Onset" if Symptomatic) Sent. tw5 Administered Medications: No medications were administered Outcome: 16:01 Decision to Hospitalize by Provider. kdr 22:22 Admitted to Med/surg Report called to Attempted to call report. Was told Matt with is tw5 with another patient at this moment and will have to call back. 22:44 Condition: unchanged tw5 23:10 Patient left the ED. tw5 Signatures: Dispatcher [employer] EDMS Lobo Sauceda MD MD [facility] Shante Garcia ds1 Derian Frey RN RN Ara Sutton tw5 Pam Barba mb7 Enmanuel Farnsworth al4 Corrections: (The following items were deleted from the chart) 13:31 13:26 BP 130 / 76; Pulse 99bpm; Resp 18bpm; Spontaneous; Pulse Ox 100% Nasal Cannula; al4 Pain 7/10; al4 18:38 17:00 BP 123 / 80; Pulse 25bpm; Resp 20bpm; Spontaneous; Pulse Ox 95% Nasal Cannula; [id number] 19:23 13:51 Respiratory: Airway is patent Respiratory effort is unlabored, Respiratory al4 pattern is regular, symmetrical, al4 19:23 13:51 Respiratory: Airway is patent Respiratory effort is unlabored, Respiratory al4 pattern is regular, symmetrical, al4 19:23 19:22 Respiratory: Breath sounds are clear al4 al4 19:42 17:00 BP 123 / 80; Pulse 75bpm; Resp 20bpm; Spontaneous; Pulse Ox 95% Nasal Cannula; [id number] 19:43 13:51 Respiratory: Airway is patent Respiratory effort is unlabored, Respiratory al4 pattern is regular, symmetrical, Breath sounds are clear al4
--- NOTE | 2021-02-17 20:47 | P.HP ---
Certification for Inpatient Patient admitted to: Observation With expected LOS: <2 Midnights Patient will require the following post-hospital care: None Practitioner: I am a practitioner with admitting privileges, knowledge of patient current condition, hospital course, and medical plan of care. Services: Services provided to patient in accordance with Admission requirements found in Title 42 Section 412.3 of the Code of Federal Regulations Patient History Date of Service: 02/17/21 Reason for admission: chest pain History of Present Illness: Ms. Baker is a 70 yo F with COPD, HTN, DM, GERD, alcohol use disorder who presents to the ED for 6/10 chest pain and left arm numbness that began this afternoon. Pain is worse with movement. Initial troponin and EKG without acute findings. Patient is trying to leave AMA but is too weak to leave the facility. Patient refuses to answer questions about why she is here. came to tack picker the patient, but they were unable to lift her into the car, so the drove off. Will admit patient for observation. Allergies No Known Allergies Allergy (Verified 12/07/19 09:23) Home Medications: Hydrocodone Bit/Acetaminophen [[place] 7.5-325 Tablet] 1 each PO TID 03/15/18 Levothyroxine Sodium 50 mcg PO DAILY 03/15/18 Lidocaine 4% Patch [Lidoderm 5% Patch*] 1 patch TOP DAILY PRN 03/15/18 Duloxetine HCl [Cymbalta] 60 mg PO DAILY 12/07/19 Montelukast Sodium [Singulair] 10 mg PO DAILY 12/07/19 Atorvastatin Calcium [Lipitor] 40 mg PO BEDTIME #30 tab 12/08/19 lisinopriL [Prinivil*] 10 mg PO DAILY #30 tab 12/08/19 - Past Medical/Surgical History Diabetic: No -: COPD -: Hypertension -: Chronic pain -: Major depressive disorder Past Surgical History: Unable to obtain Psychosocial/ Personal History: Unemployed,, lives at home with her - Social History Smoking Status: Current every day smoker Alcohol use: Yes CD- Drugs: No Caffeine use: Yes Place of Residence: Home Review of Systems is unable to be obtained Physical Examination - Physical Exam General: Alert, In no apparent distress HEENT: Atraumatic, PERRLA, Mucous membr. moist/pink, EOMI, Sclerae nonicteric Neck: Supple, 2+ carotid pulse no bruit, No LAD, Without JVD or thyroid abnormality Respiratory: Clear to auscultation bilaterally, Normal air movement Cardiovascular: Regular rate/rhythm, Normal S1 S2 Gastrointestinal: Normal bowel sounds, No tenderness Musculoskeletal: No tenderness Integumentary: No rashes Neurological: Normal speech, Normal tone Lymphatics: No axilla or inguinal lymphadenopathy - Studies Laboratory Data (last 24 hrs) 02/17/21 13:40: PT 11.7, INR 1.02 02/17/21 13:40: WBC 5.40, Hgb 9.7 L, Hct 30.2 L, Plt Count 243 02/17/21 13:40: Sodium 139, Potassium 4.1, BUN 15, Creatinine 0.48 L, Glucose 104, Magnesium 1.7 L, Total Bilirubin 0.5, AST 21, ALT 30, Alkaline Phosphatase 98 Assessment and Plan - Problems (Diagnosis) (1) COPD (chronic obstructive pulmonary disease) Current Visit: Yes Status: Chronic Qualifiers: COPD type: unspecified COPD Qualified Code(s): J44.9 - Chronic obstructive pulmonary disease, unspecified (2) T2DM (type 2 diabetes mellitus) Current Visit: Yes Status: Chronic Qualifiers: Diabetes mellitus senior care insulin use: unspecified watermelon inspector insulin use status Diabetes mellitus complication status: without complication Qualified Code(s): E11.9 - Type 2 diabetes mellitus without complications (3) GERD (gastroesophageal reflux disease) Current Visit: Yes Status: Chronic Qualifiers: Esophagitis presence: without esophagitis Qualified Code(s): K21.9 - Gastro-esophageal reflux disease without esophagitis (4) Hypothyroid Current Visit: Yes Status: Chronic Qualifiers: Hypothyroidism type: unspecified Qualified Code(s): E03.9 - Hypothyroidism, unspecified (5) Alcohol use disorder Current Visit: Yes Status: Acute (6) Chest pain Current Visit: Yes Status: Acute Qualifiers: Chest pain type: unspecified Qualified Code(s): R07.9 - Chest pain, unspecified (7) Essential hypertension Onset Date: 03/17/18 Current Visit: No Status: Chronic - Plan on tele, repeat EKG trend troponins, lipid and thyroid panel pending continue asa, metoprolol, statin PRN morphine and nitroglycerin anemia workup pending alcohol withdrawal assessment reconcile and continue home medications DVT ppx Discharge Plan: Home Plan to discharge in: 24 Hours - Advance Directives Does patient have a Living Will: No Does patient have a Durable POA for Healthcare: No - Code Status/Comfort Care Code Status Assessed: Yes (full code ) Critical Care: No Time Spent Managing Pts Care (In Minutes): 70
[2021-02-18] MEDS: ATORVASTATIN 40 MG TAB PO SCH ×2 (00:49→21:30)
[2021-02-18] MEDS ORDERED: HYDRALAZINE HCL 20 MG/ML VIAL IV PRN (00:49)
[2021-02-18] MEDS ORDERED: NITROGLYCERIN 0.4 MG/TAB SL PRN (00:49)
[2021-02-18] MEDS ORDERED: ACETAMINOPHEN 500 MG TAB PO PRN (00:49)
[2021-02-18] MEDS ORDERED: ONDANSETRON 4 MG/2 ML VIAL IV PRN (00:49)
[2021-02-18] MEDS: INSULIN -REGULAR HUMAN 50 UNIT/0.5 ML ML SQ SCH ×5 (00:49→21:00)
[2021-02-18] MEDS ORDERED: ALBUTEROL 2.5 MG/3 ML NEB SOL NEB PRN (00:49)
[2021-02-18 06:00] LABS: Absolute Lymphocytes (CBC) 2.5 K/uL (0.7-4.9); Hematocrit 29.3 % (36.0-45.0); Lymphocytes % 31.7 % (15.3-44.8); MPV 9.7 fL (7.6-11.3); RBC Red Blood Cell Count 2.96 M/uL (3.86-4.86)
[2021-02-18 06:26] LABS: ALT/SGPT 28 U/L (12-78); AST/SGOT 18 U/L (15-37); Albumin 2.4 g/dL (3.4-5.0); Alkaline Phosphatase 87 U/L (45-117); BUN Blood Urea Nitrogen 16 mg/dL (7-18); Bicarbonate 38 mmol/L (21-32); Bilirubin Total 0.5 mg/dL (0.2-1.0); Ferritin 408.9 ng/mL (8-388); Glucose Level 77 mg/dL (74-106); HDL Cholesterol 76 mg/dL (40-60); LDL Cholesterol, Calculated 57 (<130); Magnesium 1.6 mg/dL (1.8-2.4); Phosphorus 2.6 mg/dL (2.5-4.9); Potassium 3.3 mmol/L (3.5-5.1); Protein, Total 5.4 g/dL (6.4-8.2); Sodium Level 136 mmol/L (136-145); Transferrin 152 mg/dL (200-360); Troponin I 0.02 ng/mL (0.0-0.045)
[2021-02-18] MEDS: METOPROLOL TAR 25 MG TAB PO SCH ×2 (06:29→18:36)
[2021-02-18 07:08] LABS: Urine Appearance CLOUDY (Clear); Urine Bilirubin NEGATIVE (Negative); Urine Blood NEGATIVE (Negative); Urine Color YELLOW (Yellow); Urine Glucose NEGATIVE (Negative); Urine Protein NEGATIVE (Negative); Urine Specific Gravity 1.015 (1.005-1.030); Urine pH 7.5 (5.0-7.0)
[2021-02-18 07:09] LABS: Urine Microscopic Reflex ORDER UMIC
[2021-02-18 07:33] LABS: Urine Bacteria >50 /HPF (<20); Urine RBC NONE SEEN /HPF (NONE SEEN)
[2021-02-18] MEDS ORDERED: MAGNESIUM SULFATE 1 gm IVPB 1 GM/100 ML BAG IV ONE (09:00)
[2021-02-18] MEDS ORDERED: POTASSIUM CL SA 10 MEQ TAB PO ONE (09:00)
[2021-02-18] MEDS: ENOXAPARIN 40 MG/0.4 ML SQ SCH (10:15)
[2021-02-18] MEDS: ASPIRIN EC 81 MG TAB PO SCH (10:15)
--- NOTE | 2021-02-18 12:28 | P.PN ---
Subjective Date of Service: 02/18/21 Chief Complaint: chest pain Subjective: No new changes (Admitted for atypical chest pain, patient very weak to be discharged Noted with UTI Seen today, very poor historian and slow to respond, has no recollection of why she is here) Physical Examination - Vital Signs Temperature: 98.2 F Blood Pressure: 157/68 Pulse: 85 Respirations: 20 Pulse Ox (%): 95 - Studies Laboratory Data (last 24 hrs) 02/17/21 13:40: PT 11.7, INR 1.02 02/17/21 13:40: WBC 5.40, Hgb 9.7 L, Hct 30.2 L, Plt Count 243 02/17/21 13:40: Sodium 139, Potassium 4.1, BUN 15, Creatinine 0.48 L, Glucose 104, Magnesium 1.7 L, Total Bilirubin 0.5, AST 21, ALT 30, Alkaline Phosphatase 98 Assessment And Plan - Current Problems (Diagnosis) (1) Chest pain Current Visit: Yes Status: Acute Qualifiers: Chest pain type: unspecified Qualified Code(s): R07.9 - Chest pain, unspe cified (2) COPD (chronic obstructive pulmonary disease) Current Visit: Yes Status: Chronic Qualifiers: COPD type: unspecified COPD Qualified Code(s): J44.9 - Chronic obstructive pulmonary disease, unspecified (3) GERD (gastroesophageal reflux disease) Current Visit: Yes Status: Chronic Qualifiers: Esophagitis presence: without esophagitis Qualified Code(s): K21.9 - Gastro-esophageal reflux disease without esophagitis (4) Hypothyroid Current Visit: Yes Status: Chronic Qualifiers: Hypothyroidism type: unspecified Qualified Code(s): E03.9 - Hypothyroidism, unspecified (5) T2DM (type 2 diabetes mellitus) Current Visit: Yes Status: Chronic Qualifiers: Diabetes mellitus parts counterman insulin use: unspecified parts counterman insulin use status Diabetes mellitus complication status: without complication Qualified Code(s): E11.9 - Type 2 diabetes mellitus without complications (6) Acute cystitis with hematuria Onset Date: 03/17/18 Current Visit: No Status: Acute (7) Acute renal failure Current Visit: No Status: Acute - Plan Physical examination Obese elderly female, on nasal cannula O2 HEENTPERRLA, EOMI, mild periorbital edema Neckno JVD no thyroid mass Respiratorydecreased breath sounds at bases, no overt crepitations Cardiovascular S1-S2 rate and rhythm regular GIfull, soft, bowel sounds positive Extremities1+ pedal edema bilaterally,no CT Neuro- lethargic + Labsreviewed Impression Acute UTI Metabolic encephalopathy Hypertension Atypical chest painresolved Mild fluid overload Hypertension History of COPD/hypothyroidism diabetes mellitus Plan We will start empiric antibiotics, follow urine culture We will hold off Cymbalta since mild drowsy state We will dose Lasix x1 today although chest x-ray within normal range Avoid sedative and meds inducing sedation /TSH within normal range, continue Synthroid Continue insulin sliding scale with Accu-Cheks We discussed with family regarding patient baseline status We will consult PT to help with ambulation We will consult case management for possible SNF
[2021-02-18] MEDS ORDERED: INFLUENZA VACCINE (for 6+ mo) 0.5 ML DOSE IMVAC ONE (14:00)
[2021-02-18] MEDS ORDERED: PNEUMOCOCCAL VACCINE 0.5 ML IMVAC ONE (14:00)
[2021-02-18] MEDS: MORPHINE 2 MG/ML SYR IV PRN (15:10)
[2021-02-18] MEDS: FERROUS SULFATE 325 MG TAB PO SCH (21:30)
[2021-02-19] MEDS: MORPHINE 2 MG/ML SYR IV PRN ×2 (02:21→20:38)
[2021-02-19 05:57] LABS: Hematocrit 29.3 % (36.0-45.0); MPV 9.4 fL (7.6-11.3); RBC Red Blood Cell Count 2.93 M/uL (3.86-4.86)
[2021-02-19] MEDS: METOPROLOL TAR 25 MG TAB PO SCH ×2 (06:00→17:32)
[2021-02-19 06:37] LABS: ALT/SGPT 31 U/L (12-78); AST/SGOT 26 U/L (15-37); Albumin 2.3 g/dL (3.4-5.0); Alkaline Phosphatase 85 U/L (45-117); BUN Blood Urea Nitrogen 10 mg/dL (7-18); Bicarbonate 36 mmol/L (21-32); Bilirubin Total 0.5 mg/dL (0.2-1.0); Glucose Level 77 mg/dL (74-106); Potassium 3.6 mmol/L (3.5-5.1); Protein, Total 5.3 g/dL (6.4-8.2); Sodium Level 138 mmol/L (136-145)
[2021-02-19] MEDS: INSULIN -REGULAR HUMAN 50 UNIT/0.5 ML ML SQ SCH ×4 (07:30→20:38)
[2021-02-19] MEDS: FERROUS SULFATE 325 MG TAB PO SCH ×2 (08:43→20:37)
[2021-02-19] MEDS: FOLIC ACID 1 MG TABLET PO SCH (08:43)
[2021-02-19] MEDS: ZINC SULFATE 220 MG CAP PO SCH (08:43)
[2021-02-19] MEDS: POTASSIUM CL SA 10 MEQ TAB PO SCH (08:43)
[2021-02-19] MEDS: ENOXAPARIN 40 MG/0.4 ML SQ SCH (08:43)
[2021-02-19] MEDS: predniSONE 10 MG TAB PO SCH (08:43)
[2021-02-19] MEDS: PANTOPRAZOLE 40MG TABLET PO SCH (08:43)
[2021-02-19] MEDS: THIAMINE HCL 100 MG TABLET PO SCH (08:43)
[2021-02-19] MEDS: ASPIRIN EC 81 MG TAB PO SCH (08:43)
[2021-02-19] MEDS: CEFTRIAXONE 1,000 MG in NA CHLORIDE 0.9% 50 ML IVPB SCH (08:44)
[2021-02-19] MEDS ORDERED: FUROSEMIDE 40 MG TABLET PO SCH (09:00)
--- NOTE | 2021-02-19 14:00 | P.PN ---
Subjective Date of Service: 02/19/21 Chief Complaint: chest pain Subjective: New changes, C/O voiced (right leg weakness, states chronic and reason for her snf stay - more awake today - states she left rehab and came here for myalgia , back and chest pain - will like to go back to snf) Physical Examination - Vital Signs Temperature: 97.6 F Blood Pressure: 136/73 Pulse: 88 Respirations: 19 Pulse Ox (%): 96 - Physical Exam General: Alert, In no apparent distress, Oriented x3, Obese HEENT: Atraumatic, Normocephalic, PERRLA Neck: Supple, 2+ carotid pulse no bruit, JVD not distended Respiratory: Clear to auscultation bilaterally, Diminished Cardiovascular: Normal pulses, Regular rate/rhythm, Normal S1 S2 Gastrointestinal: Normal bowel sounds, Soft and benign, Non-distended Musculoskeletal: No clubbing, No swelling Neurological: Normal speech, Sensation intact, Cranial nerves 3-12 intact, Normal reflexes 2+, Abnormal strength (bilateral leg weakness with symmetrical 3/5 power , ) External genitalia: No edema, No lesions Assessment And Plan - Current Problems (Diagnosis) (1) Chest pain Current Visit: Yes Status: Acute Qualifiers: Chest pain type: unspecified Qualified Code(s): R07.9 - Chest pain, unspecified (2) COPD (chronic obstructive pulmonary disease) Current Visit: Yes Status: Chronic Qualifiers: COPD type: unspecified COPD Qualified Code(s): J44.9 - Chronic obstructive pulmonary disease, unspecified (3) GERD (gastroesophageal reflux disease) Current Visit: Yes Status: Chronic Qualifiers: Esophagitis presence: without esophagitis Qualified Code(s): K21.9 - Gastro-esophageal reflux disease without esophagitis (4) Hypothyroid Current Visit: Yes Status: Chronic Qualifiers: Hypothyroidism type: unspecified Qualified Code(s): E03.9 - Hypothyroidism, unspecified (5) T2DM (type 2 diabetes mellitus) Current Visit: Yes Status: Chronic Qualifiers: Diabetes mellitus long term care pharmacist insulin use: unspecified long term care pharmacist insulin use status Diabetes mellitus complication status: without complication Qualified Code(s): E11.9 - Type 2 diabetes mellitus without complications (6) Acute cystitis with hematuria Onset Date: 03/17/18 Current Visit: No Status: Acute (7) Acute renal failure Current Visit: No Status: Acute - Plan Labsreviewed Impression Acute UTI Metabolic encephalopathy Hypertension Atypical chest painresolved Mild fluid overload Hypertension History of COPD/hypothyroidism diabetes mellitus Asthenia LE weakness- symmetrical , may be due to Asthenia Plan -We will consult physical therapy since persistent lower extremity weakness which has been giving her immobility issues for the last several weeks including a recent rehab stay after which she was discharged from rehab and came to the emergency room. Patient is was more for social admit as has refused to take at home from the emergency room and his admission for atypical chest pain Cardiac enzymes have been negative Patient self requesting going back to rehab, does not want to go home yet We will consult case management to look into issue if asymmetrical gait with physical therapy might need imaging of the lower back Continue empiric antibiotics, follow pending urine culture Continue to hold sedativeshold Cymbalta although more awake today -Still on chronic home O2 although chest x-ray within normal range Continue insulin sliding scale with Accu-Cheks Dispositionfor possible SNF
[2021-02-19] MEDS: ATORVASTATIN 40 MG TAB PO SCH (20:37)
[2021-02-20] MEDS: METOPROLOL TAR 25 MG TAB PO SCH ×2 (05:32→17:09)
[2021-02-20 06:01] LABS: Absolute Lymphocytes (CBC) 2.2 K/uL (0.7-4.9); Hematocrit 31.9 % (36.0-45.0); Lymphocytes % 30.6 % (15.3-44.8); MPV 9.4 fL (7.6-11.3); RBC Red Blood Cell Count 3.16 M/uL (3.86-4.86)
[2021-02-20 06:35] LABS: ALT/SGPT 34 U/L (12-78); AST/SGOT 22 U/L (15-37); Albumin 2.5 g/dL (3.4-5.0); Alkaline Phosphatase 93 U/L (45-117); BUN Blood Urea Nitrogen 11 mg/dL (7-18); Bilirubin Total 0.5 mg/dL (0.2-1.0); Glucose Level 94 mg/dL (74-106); Potassium 3.8 mmol/L (3.5-5.1); Protein, Total 5.7 g/dL (6.4-8.2); Sodium Level 140 mmol/L (136-145)
[2021-02-20 06:51] LABS: Bicarbonate 41 mmol/L (21-32)
[2021-02-20] MEDS: INSULIN -REGULAR HUMAN 50 UNIT/0.5 ML ML SQ SCH ×4 (07:30→20:25)
[2021-02-20] MEDS: PANTOPRAZOLE 40MG TABLET PO SCH (08:14)
[2021-02-20] MEDS: THIAMINE HCL 100 MG TABLET PO SCH (08:14)
[2021-02-20] MEDS: FERROUS SULFATE 325 MG TAB PO SCH ×2 (08:14→20:34)
[2021-02-20] MEDS: FOLIC ACID 1 MG TABLET PO SCH (08:14)
[2021-02-20] MEDS: POTASSIUM CL SA 10 MEQ TAB PO SCH (08:14)
[2021-02-20] MEDS: ASPIRIN EC 81 MG TAB PO SCH (08:14)
[2021-02-20] MEDS: ZINC SULFATE 220 MG CAP PO SCH (08:14)
[2021-02-20] MEDS: ENOXAPARIN 40 MG/0.4 ML SQ SCH (08:15)
[2021-02-20] MEDS: predniSONE 10 MG TAB PO SCH (08:15)
[2021-02-20] MEDS: CEFTRIAXONE 1,000 MG in NA CHLORIDE 0.9% 50 ML IVPB SCH (08:16)
--- NOTE | 2021-02-20 08:16 | EKG ---
Test Date: 2021-02-17 Test Time: 13:30:17 Hog Killer: MBB MEASUREMENT RESULTS: Intervals: Rate: 93 HI: 150 QRSD: 72 QT: 352 QTc: 437 [place]: P: 77 HI: 150 QRS: 48 T: 39 INTERPRETIVE STATEMENTS: Normal sinus rhythm Septal infarct, age undetermined Abnormal ECG Compared to ECG 12/17/2020 15:28:03 Ventricular premature complex(es) no longer present Myocardial infarct finding still present Electronically Signed On 02-20-21 08:12:47 CLIENT PARTNER by Vik Sauceda
[2021-02-20] MEDS: acetaZOLAMIDE 250 MG TAB PO SCH (08:24)
[2021-02-20] MEDS ORDERED: PNEUMOCOCCAL VACCINE 0.5 ML IMVAC ONE (12:00)
[2021-02-20] MEDS ORDERED: INFLUENZA VACCINE (for 6+ mo) 0.5 ML DOSE IMVAC ONE (12:00)
[2021-02-20] MEDS: MORPHINE 2 MG/ML SYR IV PRN (14:44)
--- NOTE | 2021-02-20 15:17 | P.PN ---
Subjective Date of Service: 02/20/21 Chief Complaint: chest pain Subjective: Improving, Doing well Physical Examination - Vital Signs Temperature: 96.9 F Blood Pressure: 116/56 Pulse: 76 Respirations: 17 Pulse Ox (%): 98 Assessment & Plan Discharge Plan: Other (detention facility) Plan to discharge in: 48 Hours Physician Review Additional Text: COVID: Negative Physical exam: General: Alert, In no apparent distress, Oriented x3, Obese HEENT: Atraumatic, Normocephalic, PERRLA Neck: Supple, 2+ carotid pulse no bruit, JVD not distended Respiratory: Clear to auscultation bilaterally, Diminished Cardiovascular: Normal pulses, Regular rate/rhythm, Normal S1 S2 Gastrointestinal: Normal bowel sounds, Soft and benign, Non-distended Musculoskeletal: No clubbing, No swelling Neurological: Normal speech, Sensation intact, Cranial nerves 3-12 intact, Normal reflexes 2+, Abnormal strength (bilateral leg weakness with symmetrical 3/5 power , ) External genitalia: No edema, No lesions Impression: Chest pain UTI COPD with hypercapnia Anemia chronic disease with iron deficiency GERD Diabetes mellitus type 2 Plan: Patient with UTI. Continue IV Rocephin. Blood cultures, urine culture pending. No further chest pain noted. Cardiac enzymes unremarkable. COPD with hypercapnia noted. Discontinue Lasix. Will start Diamox. Continue COPD treatment. Continue Protonix. Monitor hemoglobin hematocrit. Continue iron supplementation. Hemoglobin A1c well controlled5.0. Will monitor Accu-Cheks. Physical therapy and Occupational Therapy to evaluate. Patient desires to go to skilled placement. Social work to help with this. CODE STATUS: Full code DVT prophylaxis: Lovenox [facility] [id number] minutes: We will pursue skilled placement. Time Spent Managing Pts Care (In Minutes): 55
[2021-02-20] MEDS: ARFORMOTEROL TARTRATE 15 MCG/2 ML VIAL.NEB NEB SCH (20:15)
[2021-02-20] MEDS: ATORVASTATIN 40 MG TAB PO SCH (20:34)
[2021-02-20] MEDS: ASCORBIC ACID 500 MG TABLET PO SCH (20:34)
[2021-02-20] MEDS: JUVEN PACKET PO SCH (21:00)
[2021-02-21 04:33] LABS: Absolute Lymphocytes (CBC) 2.6 K/uL (0.7-4.9); Hematocrit 30.8 % (36.0-45.0); Lymphocytes % 36.8 % (15.3-44.8); MPV 9.3 fL (7.6-11.3); RBC Red Blood Cell Count 3.05 M/uL (3.86-4.86)
[2021-02-21 04:50] LABS: ALT/SGPT 28 U/L (12-78); AST/SGOT 17 U/L (15-37); Albumin 2.4 g/dL (3.4-5.0); Alkaline Phosphatase 89 U/L (45-117); BUN Blood Urea Nitrogen 11 mg/dL (7-18); Bicarbonate 38 mmol/L (21-32); Bilirubin Total 0.4 mg/dL (0.2-1.0); Glucose Level 97 mg/dL (74-106); Potassium 3.8 mmol/L (3.5-5.1); Protein, Total 5.5 g/dL (6.4-8.2); Sodium Level 140 mmol/L (136-145)
[2021-02-21] MEDS: METOPROLOL TAR 25 MG TAB PO SCH ×2 (05:01→17:05)
[2021-02-21] MEDS: MORPHINE 2 MG/ML SYR IV PRN (05:01)
--- NOTE | 2021-02-21 06:13 | P.PN ---
Subjective Date of Service: 02/21/21 Primary Care Provider: unknown Chief Complaint: chest pain Subjective: Doing well Physical Examination - Vital Signs Temperature: 97.2 F Blood Pressure: 140/62 Pulse: 82 Respirations: 18 Pulse Ox (%): 94 Assessment & Plan Discharge Plan: Other (SNF) Plan to discharge in: 48 Hours Physician Review Additional Text: COVID: Negative Physical exam: General: Alert, In no apparent distress, Oriented x3, Obese, vital signs stable. HEENT: Atraumatic, Normocephalic, PERRLA Neck: Supple, 2+ carotid pulse no bruit, JVD not distended Respiratory: Clear anteriorly. Currently on 2 L per nasal cannula. Cardiovascular: Normal pulses, Regular rate/rhythm, Normal S1 S2 Gastrointestinal: Normal bowel sounds, Soft and benign, Non-distended Musculoskeletal: No clubbing, No swelling Neurological: Strength good. No significant edema to the lower extremity. External genitalia: No edema, No lesions Impression: Chest pain, resolved Complicated UTI, urine culture positive for Klebsiella pneumoniaeESBL and E. coli COPD with hypercapnia complicated with hypoventilation syndrome and likely underlying sleep apnea Anemia chronic disease with iron deficiency GERD Diabetes mellitus type 2 Hypertension Hyperlipidemia Chronic pain with neuropathy Plan: Chest pain, resolved: No further chest pain noted. Cardiac enzymes unremarkable. No further work-up required at this time. Complicated UTI, urine culture positive for Klebsiella pneumoniaeESBL and E. coli: Will change IV antibiotic therapy to IV meropenem. Cultures reviewed. Klebsiella pneumoniaeESBL was indeterminate. E. coli sensitive to meropenem. Will consult infectious disease for recommendations. Will order PICC line as the patient will require IV antibiotic therapy. Continue IV meropenem 1 g twice daily for at least 7 days. Currently day 1. Await recommendations from infectious disease as additional medication may be required. Will have physical therapy and Occupational Therapy evaluate patient. Patient will need to go to skilled facility. Patient agreeable. Will discuss with director of social work. COPD with hypercapnia complicated with hypoventilation syndrome and likely underlying sleep apnea: Patient doing well. Continue with COPD treatmentalbuterol/Atrovent/Brovana. Wean off prednisone. Lasix was discontinued. Patient now on Diamox 250 mg 1 pill daily. CO2 improved. Continue to wean off oxygen. Anemia chronic disease with iron deficiency: Continue iron supplementationiron 325 mg 1 pill twice daily. GERD: Continue Protonix 40 mg daily. Diabetes mellitus type 2: Hemoglobin A1c 5.0. Well-controlled. Continue Accu- Cheks and sliding scale. Hypertension: Stable on metoprolol 12.5 mg 1 pill twice daily. Will monitor and adjust appropriately. Hyperlipidemia: Continue Lipitor 40 mg daily. Chronic pain with neuropathy: Continue with Cymbalta 30 mg daily. Will provide medication for pain. Physical therapy and Occupational Therapy to help ambulate. CODE STATUS: Full code DVT prophylaxis: Lovenox [facility] [id number] minutes: Continue to pursue skilled placement. Patient now with complicated UTI. Will need IV antibiotic therapy at skilled facility as well. Await further recomme ndations from infectious disease. Time Spent Managing Pts Care (In Minutes): 55
[2021-02-21] MEDS: INSULIN -REGULAR HUMAN 50 UNIT/0.5 ML ML SQ SCH ×4 (07:30→19:59)
[2021-02-21] MEDS ORDERED: TRAMADOL HCL 50 MG TAB PO PRN (07:46)
[2021-02-21] MEDS: ENOXAPARIN 40 MG/0.4 ML SQ SCH (08:22)
[2021-02-21] MEDS: POTASSIUM CL SA 10 MEQ TAB PO SCH (08:23)
[2021-02-21] MEDS: THIAMINE HCL 100 MG TABLET PO SCH (08:23)
[2021-02-21] MEDS: MULTIVIT W/ MINERAL TAB PO SCH (08:23)
[2021-02-21] MEDS: DULOXETINE 30 MG CAP PO SCH (08:23)
[2021-02-21] MEDS: ASPIRIN EC 81 MG TAB PO SCH (08:23)
[2021-02-21] MEDS: FERROUS SULFATE 325 MG TAB PO SCH ×2 (08:23→20:09)
[2021-02-21] MEDS: ZINC SULFATE 220 MG CAP PO SCH (08:23)
[2021-02-21] MEDS: PANTOPRAZOLE 40MG TABLET PO SCH (08:23)
[2021-02-21] MEDS: ASCORBIC ACID 500 MG TABLET PO SCH ×2 (08:23→20:09)
[2021-02-21] MEDS: predniSONE 10 MG TAB PO SCH (08:24)
[2021-02-21] MEDS: JUVEN PACKET PO SCH ×2 (08:24→20:15)
[2021-02-21] MEDS: FOLIC ACID 1 MG TABLET PO SCH (08:24)
[2021-02-21] MEDS: acetaZOLAMIDE 250 MG TAB PO SCH (08:24)
[2021-02-21] MEDS: ARFORMOTEROL TARTRATE 15 MCG/2 ML VIAL.NEB NEB SCH ×2 (08:36→19:50)
[2021-02-21] MEDS ORDERED: Meropenem 1,000 MG in NA CHLORIDE 0.9% 100 ML IV SCH (09:00)
[2021-02-21] MEDS ORDERED: POTASSIUM CL SA 10 MEQ TAB PO ONE (09:00)
[2021-02-21] MEDS ORDERED: [UNRECOGNIZED DRUG - OTHER] PO SCH (09:00)
--- NOTE | 2021-02-21 11:42 | P.CNS ---
Date of Consult: 02/21/21 Primary Care Provider: unknown Chief Complaint: chest pain History of Present Illness: The patient is a 7-year-old female with a past medical history of COPD, hypertension, morbid obesity, diabetes, GERD common alcohol use disorder presented to the emergency department secondary to chest pain left arm numbness. Initial troponin an EKG without acute findings. Patient tried to leave AMA but was too weak to leave the facility. Urine culture obtained on 02/18 growing ESBL producing Klebsiella and E coli. Infectious disease has been consulted to manage patient's antibiotic regimen. Patient initially placed on meropenem on 02/21. Patient currently denies nausea/vomiting/diarrhea/shortness breast/chest pain. Currently utilizing 2 L of oxygen via nasal cannula, states that she uses a set home has well. Allergies No Known Allergies Allergy (Verified 12/07/19 09:23) Home Medications: Acetaminophen [Tylenol] 2 tab PO Q6H PRN 02/18/21 Acetaminophen-Codeine Tablet 300-30 1 tab PO Q6HP PRN 02/18/21 [place] Packet 1 packet PO BID 02/18/21 Ascorbic Acid 500 mg PO BID 02/18/21 Duloxetine HCl 30 mg PO DAILY 02/18/21 Ergocalciferol (Vitamin D2) [Vitamin D 50,000 Unit Cap] 50,000 unit PO SEECOM 02/18/21 Folic Acid 1 mg PO DAILY 02/18/21 Furosemide [Lasix] 40 mg PO DAILY 02/18/21 Glucagon [Gvoke Syringe] 1 mg IM Q6HP PRN 02/18/21 Insulin Aspart [Novolog Flexpen] See Protocol SQ BID 02/18/21 Ipratropium/Albuterol Sulfate [Iprat-Albut 0.5-3(2.5) mg/3 ml] 3 ml IH Q6H PRN 02/18/21 Melatonin 5 mg PO BEDTIME 02/18/21 Multivitamins-Minerals 1 tab PO DAILY 02/18/21 Omeprazole Magnesium [Prilosec Otc] 20 mg PO DAILY 02/18/21 Potassium Chloride 2 tab PO DAILY 02/18/21 Prednisone [Sterapred Ds] 10 mg PO DAILY 02/18/21 Promethazine HCl 25 mg PO Q6H PRN 02/18/21 Protein Liquid 30 ml PO BID 02/18/21 Thiamine HCl 100 mg PO DAILY 02/18/21 Zinc Sulfate [Zinc Sulfate*] 220 mg PO DAILY 02/18/21 - Past Medical/Surgical History Diabetic: No -: COPD -: Hypertension -: Chronic pain -: Major depressive disorder Psychosocial/ Personal History: Unemployed,, lives at home with her - Social History Smoking Status: Unknown if ever smoked Alcohol use: Yes CD- Drugs: No Caffeine use: No Place of Residence: [facility] Review of Systems 10-point ROS is otherwise unremarkable Physical Examination Temp Pulse Resp BP Pulse Ox 97.2 F 77 18 99/49 L 97 02/21/21 11:08 02/21/21 11:08 02/21/21 11:08 02/21/21 11:08 02/21/21 11:08 General: Obese HEENT: Atraumatic, Normocephalic Neck: Supple, 2+ carotid pulse no bruit Respiratory: Clear to auscultation bilaterally, Normal air movement Cardiovascular: No edema, Regular rate/rhythm Gastrointestinal: Normal bowel sounds, Non-distended Musculoskeletal: No clubbing, No swelling, No contractures Conclusions/Impression: Antibiotics: Gentamicin Start: 02/21 Assessment/plan Urinary tract infection Urine culture obtained on 02/18 growing Klebsiella pneumoniae ESBL producing an E coli. Klebsiella producing E ESBL showing intermittent sensitivity to meropenem with an BRINA of 2. As such meropenem discontinued completion placed on gentamicin. Dose will be adjusted for body weight. Will obtain peak and trough levels on , closely monitoring a peak and trough levels with help of pharmacy. Continue to closely monitor renal function, recommend daily BMP. Recommend treating for 7 days. Anemia Protein caloric malnutrition: Moderate Diabetes S COPD Morbid obesity Hypothyroidism -medical management per primary team with -plan of care discussed Dr. Palacios -thank you for consultation
[2021-02-21] MEDS: NA CHLORIDE 0.9% IV SCH ×2 (13:42→20:11)
--- NOTE | 2021-02-21 19:31 | RAD REPORT ---
EXAM DESCRIPTION: RAD - Chest Single View - 02/21/2021 7:14 pm CLINICAL HISTORY: picc line placement COMPARISON: Chest Single View dated 02/17/2021; Chest Single View dated 12/29/2020; Chest Single Vie w dated 12/28/2020; Abdomen 1 View (KUB) dated 12/26/2020 FINDINGS: Lines: Right subclavian approach PICC with tip overlying the SVC in satisfactory position . Lungs: No evidence of edema or pneumonia. Pleural: No significant pleural effusions or pneumothorax. Cardiac: Mild cardiomegaly. Bones: No acute fractures. Other: IMPRESSION: No acute cardiopulmonary disease. PICC tip in satisfactory position overlying the SVC.
[2021-02-21] MEDS: LACTOBACILLUS/ACIDOPHILUS TAB PO SCH (20:09)
[2021-02-21] MEDS: HYDROCODONE/APAP 5/325 MG TAB PO PRN (20:09)
[2021-02-21] MEDS: ATORVASTATIN 40 MG TAB PO SCH (20:25)
[2021-02-22 00:22] VITALS: BMI 43.6
[2021-02-22] MEDS: NA CHLORIDE 0.9% IV SCH ×3 (03:36→21:04)
[2021-02-22 04:42] LABS: ALT/SGPT 29 U/L (12-78); AST/SGOT 21 U/L (15-37); Albumin 2.2 g/dL (3.4-5.0); Alkaline Phosphatase 102 U/L (45-117); BUN Blood Urea Nitrogen 16 mg/dL (7-18); Bicarbonate 34 mmol/L (21-32); Bilirubin Total 0.4 mg/dL (0.2-1.0); Glucose Level 106 mg/dL (74-106); Potassium 3.6 mmol/L (3.5-5.1); Protein, Total 5.2 g/dL (6.4-8.2); Sodium Level 138 mmol/L (136-145)
[2021-02-22] MEDS: METOPROLOL TAR 25 MG TAB PO SCH ×2 (06:07→16:43)
--- NOTE | 2021-02-22 06:13 | P.PN ---
Subjective Date of Service: 02/22/21 Primary Care Provider: unknown Chief Complaint: chest pain Physical Examination - Vital Signs Temperature: 97.3 F Blood Pressure: 122/53 Pulse: 68 Respirations: 19 Pulse Ox (%): 100 - Studies Microbiology Data (last 24 hrs): 02/18/21 06:53 Clean Catch Urine [place] Count - Final >100,000 CFU/ML. 02/18/21 06:53 Clean Catch Urine - Final Klebsiella Pneumoniae Esbl Escherichia Coli Assessment & Plan Physician Review Additional Text: COVID: Negative Physical exam: General: Alert, In no apparent distress, Oriented x3, Obese, vital signs stable. HEENT: Atraumatic, Normocephalic, PERRLA Neck: Supple, 2+ carotid pulse no bruit, JVD not distended Respiratory: Clear anteriorly. Currently on 2 L per nasal cannula. Cardiovascular: Normal pulses, Regular rate/rhythm, Normal S1 S2 Gastrointestinal: Normal bowel sounds, Soft and benign, Non-distended Musculoskeletal: No clubbing, No swelling Neurological: Strength good. No significant edema to the lower extremity. External genitalia: No edema, No lesions Impression: Chest pain, resolved Complicated UTI, urine culture positive for Klebsiella pneumoniaeESBL and E. coli COPD with hypercapnia complicated with hypoventilation syndrome and likely underlying sleep apnea Anemia chronic disease with iron deficiency GERD Diabetes mellitus type 2 Hypertension Hyperlipidemia Chronic pain with neuropathy Plan: Chest pain, resolved: No further chest pain noted. Cardiac enzymes unremarkable. No further work-up required at this time. Complicated UTI, urine culture positive for Klebsiella pneumoniaeESBL and E. coli: Will change IV antibiotic therapy to IV meropenem. Cultures reviewed. Klebsiella pneumoniaeESBL was indeterminate. E. coli sensitive to meropenem. Will consult infectious disease for recommendations. Will order PICC line as the patient will require IV antibiotic therapy. Continue IV meropenem 1 g twice daily for at least 7 days. Currently day 1. Await recommendations from infe ctious disease as additional medication may be required. Will have physical therapy and Occupational Therapy evaluate patient. Patient will need to go to skilled facility. Patient agreeable. Will discuss with hospice social worker. COPD with hypercapnia complicated with hypoventilation syndrome and likely underlying sleep apnea: Patient doing well. Continue with COPD treatm entalbuterol/Atrovent/Brovana. Wean off prednisone. Lasix was discontinued. Patient now on Diamox 250 mg 1 pill daily. CO2 improved. Continue to wean off oxygen. Anemia chronic disease with iron deficiency: Continue iron supplementationiron 325 mg 1 pill twice daily. GERD: Continue Protonix 40 mg daily. Diabetes mellitus type 2: Hemoglobin A1c 5.0. Well-controlled. Continue Accu- Cheks and sliding scale. Hypertension: Stable on metoprolol 12.5 mg 1 pill twice daily. Will monitor and adjust appropriately. Hyperlipidemia: Continue Lipitor 40 mg daily. Chronic pain with neuropathy: Continue with Cymbalta 30 mg daily. Will provide medication for pain. Physical therapy and Occupational Therapy to help ambulate. CODE STATUS: Full code DVT prophylaxis: Lovenox [facility] [id number] minutes: Continue to pursue skilled placement. Patient now with complicated UTI. Will need IV antibiotic therapy at skilled facility as well. Await further recommendations from infectious disease.
[2021-02-22] MEDS: INSULIN -REGULAR HUMAN 50 UNIT/0.5 ML ML SQ SCH ×4 (07:30→21:00)
[2021-02-22] MEDS: ARFORMOTEROL TARTRATE 15 MCG/2 ML VIAL.NEB NEB SCH ×2 (08:05→20:00)
[2021-02-22] MEDS: IPRATROPIUM BROM 0.5MG/2.5ML NEB PRN (08:05)
[2021-02-22] MEDS: DULOXETINE 30 MG CAP PO SCH (09:00)
[2021-02-22] MEDS: JUVEN PACKET PO SCH ×2 (09:00→21:00)
[2021-02-22] MEDS: ENOXAPARIN 40 MG/0.4 ML SQ SCH (09:06)
[2021-02-22] MEDS: FOLIC ACID 1 MG TABLET PO SCH (09:07)
[2021-02-22] MEDS: ASCORBIC ACID 500 MG TABLET PO SCH ×2 (09:07→21:00)
[2021-02-22] MEDS: FERROUS SULFATE 325 MG TAB PO SCH ×2 (09:07→21:05)
[2021-02-22] MEDS: LACTOBACILLUS/ACIDOPHILUS TAB PO SCH ×3 (09:07→21:04)
[2021-02-22] MEDS: HYDROCODONE/APAP 5/325 MG TAB PO PRN ×3 (09:07→22:41)
[2021-02-22] MEDS: ASPIRIN EC 81 MG TAB PO SCH (09:08)
[2021-02-22] MEDS: ZINC SULFATE 220 MG CAP PO SCH (09:08)
[2021-02-22] MEDS: PANTOPRAZOLE 40MG TABLET PO SCH (09:08)
[2021-02-22] MEDS: predniSONE 10 MG TAB PO SCH (09:08)
[2021-02-22] MEDS: MULTIVIT W/ MINERAL TAB PO SCH (09:08)
[2021-02-22] MEDS: THIAMINE HCL 100 MG TABLET PO SCH (09:08)
[2021-02-22] MEDS: POTASSIUM CL SA 10 MEQ TAB PO SCH (09:08)
[2021-02-22] MEDS: acetaZOLAMIDE 250 MG TAB PO SCH (09:08)
--- NOTE | 2021-02-22 09:59 | P.PN ---
Subjective Date of Service: 02/22/21 Primary Care Provider: unknown Chief Complaint: chest pain Subjective: Improving, Doing well Physical Examination - Vital Signs Temperature: 97.7 F Blood Pressure: 120/91 Pulse: 70 Respirations: 18 Pulse Ox (%): 95 - Studies Microbiology Data (last 24 hrs): 02/18/21 06:53 Clean Catch Urine [place] Count - Final >100,000 CFU/ML. 02/18/21 06:53 Clean Catch Urine - Final Klebsiella Pneumoniae Esbl Escherichia Coli Assessment & Plan Discharge Plan: Other (half-way facility) Plan to discharge in: 24 Hours Physician Review Additional Text: COVID: Negative Physical exam: General: Alert, In no apparent distress, Oriented x3, Obese, vital signs stable. HEENT: Atraumatic, Normocephalic, PERRLA Neck: Supple, 2+ carotid pulse no bruit, JVD not distended Respiratory: Clear anteriorly. Currently on 2 L per nasal cannula. Cardiovascular: Normal pulses, Regular rate/rhythm, Normal S1 S2 Gastrointestinal: Normal bowel sounds, Soft and benign, Non-distended Musculoskeletal: No clubbing, No swelling Neurological: Strength good. No significant edema to the lower extremity. External genitalia: No edema, No lesions Impression: Chest pain, resolved Complicated UTI, urine culture positive for Klebsiella pneumoniaeESBL and E. coli COPD with hypercapnia complicated with hypoventilation syndrome and likely underlying sleep apnea Anemia chronic disease with iron deficiency GERD Diabetes mellitus type 2 Hypertension Hyperlipidemia Chronic pain with neuropathy Plan: Chest pain, resolved: No further chest pain noted. Cardiac enzymes unremarkable. No further work-up required at this time. Complicated UTI, urine culture positive for Klebsiella pneumoniaeESBL and E. coli: Discussed with infectious disease yesterday. Patient now on Vabomere 4 gm IV TID for 7 days. Day 2. Continue with IV antibiotic therapy. Recheck urine culture tomorrow to monitor resolution. Social work working to get skilled placement. Awaiting to see if skilled placement will approve for antibiotic at the facility. If not patient will need to continue with treatment of IV tabetic therapy in the hospital then transition to skilled placement. COPD with hypercapnia complicated with hypoventilation syndrome and likely underlying sleep apnea: Patient doing well. Continue with COPD treatmentalbuterol/Atrovent/Brovana. Wean off prednisone. Patient stable on Diamox 250 mg 1 pill daily. Continue to wean off oxygen. Anemia chronic disease with iron deficiency: Continue iron supplementationiron 325 mg 1 pill twice daily. GERD: Continue Protonix 40 mg daily. Diabetes mellitus type 2: Hemoglobin A1c 5.0. Well-controlled. Continue Accu- Cheks and sliding scale. Hypertension: Stable on metoprolol 12.5 mg 1 pill twice daily. Will monitor and adjust appropriately. Hyperlipidemia: Continue Lipitor 40 mg daily. Chronic pain with neuropathy: Continue with Cymbalta 30 mg daily. Will provide medication for pain. Physical therapy and Occupational Therapy to help ambulate. CODE STATUS: Full code DVT prophylaxis: Lovenox [facility] [id number] minutes: Continue to pursue skilled placement. Patient now with complicated UTI. Will need to verify if assisted will approve antibioticVabomere. If so patient can be discharged to facility as PICC line is in place. If this is not approved then patient will need to remain in the hospital to continue treatment of complicated UTI. Then patient can be transitioned to skilled placement Time Spent Managing Pts Care (In Minutes): 55
--- NOTE | 2021-02-22 10:52 | P.PN ---
Subjective Date of Service: 02/22/21 Primary Care Provider: unknown Chief Complaint: chest pain Patient seen examined at bedside, resting comfortably. Tolerating antibiotics well with no nausea/vomiting/diarrhea. Review of Systems 10-point ROS is otherwise unremarkable Physical Examination - Vital Signs Temperature: 97.7 F Blood Pressure: 120/91 Pulse: 70 Respirations: 18 Pulse Ox (%): 95 - Studies Laboratory Last Values WBC 6.50 K/uL (4.3-10.9) D 02/19/21 05:18 RBC 2.93 M/uL (3.86-4.86) L 02/19/21 05:18 Hgb 9.5 g/dL (12.0-15.0) L 02/19/21 05:18 Hct 29.3 % (36.0-45.0) L 02/19/21 05:18 MCV 99.9 fL (80-100) 02/19/21 05:18 MCH 32.5 pg (27.0-35.0) 02/19/21 05:18 MCHC 32.6 g/dL (32.0-36.0) 02/19/21 05:18 RDW 17.4 % (12.1-15.2) H 02/19/21 05:18 Plt Count 211 K/uL (152-406) 02/19/21 05:18 MPV 9.4 fL (7.6-11.3) 02/19/21 05:18 Neutrophils % 57.3 % (41.7-73.7) 02/19/21 05:18 Lymphocytes % 31.0 % (15.3-44.8) 02/19/21 05:18 Monocytes % 10.0 % (3.3-12.3) 02/19/21 05:18 Eosinophils % 1.1 % (0-4.4) 02/19/21 05:18 Basophils % 0.6 % (0-1.3) 02/19/21 05:18 Absolute Neutrophils 3.7 K/uL (1.8-8.0) 02/19/21 05:18 Absolute Lymphocytes 2.0 K/uL (0.7-4.9) 02/19/21 05:18 Absolute Monocytes 0.6 K/uL (0.1-1.3) 02/19/21 05:18 Absolute Eosinophils 0.1 K/uL (0-0.5) 02/19/21 05:18 Absolute Basophils 0.0 K/uL (0-0.5) 02/19/21 05:18 PT 11.7 SECONDS (9.5-12.5) 02/17/21 13:40 INR 1.02 02/17/21 13:40 Sodium 138 mmol/L (136-145) 02/19/21 05:18 Potassium 3.6 mmol/L (3.5-5.1) 02/19/21 05:18 Chloride 96 mmol/L (98-107) L 02/19/21 05:18 Carbon Dioxide 36 mmol/L (21-32) H 02/19/21 05:18 BUN 10 mg/dL (7-18) 02/19/21 05:18 Creatinine 0.39 mg/dL (0.55-1.3) L 02/19/21 05:18 Estimated GFR > 90 mL/min (=/>90) 02/19/21 05:18 Glucose 77 mg/dL (74-106) 02/19/21 05:18 POC Glucose 95 mg/dL (65-120) 02/19/21 11:32 Hemoglobin A1c 5.0 % (4.2-6.3) 02/18/21 05:18 Calcium 8.5 mg/dL (8.5-10.1) 02/19/21 05:18 Phosphorus 2.6 mg/dL (2.5-4.9) 02/18/21 05:18 Magnesium 1.9 mg/dL (1.8-2.4) 02/19/21 05:18 Iron 34.0 ug/dL (50-170) L 02/18/21 05:18 TIBC 213 ug/dL (250-460) L 02/18/21 05:18 Transferrin 152 mg/dL (200-360) L 02/18/21 05:18 Transferrin % Sat 16.0 % (20.0-50.0) L 02/18/21 05:18 Ferritin 408.9 ng/mL (8-388) H 02/18/21 05:18 Total Bilirubin 0.5 mg/dL (0.2-1.0) 02/19/21 05:18 Direct Bilirubin 0.2 mg/dL (0-0.2) 02/17/21 13:40 AST 26 U/L (15-37) 02/19/21 05:18 ALT 31 U/L (12-78) 02/19/21 05:18 Alkaline Phosphatase 85 U/L (45-117) 02/19/21 05:18 Rapid Troponin I < 0.02 ng/mL (0.0-0.045) 02/17/21 13:40 Troponin I 0.02 ng/mL (0.0-0.045) 02/18/21 05:18 NT-Pro-B Natriuret Pep 552 pg/mL (<125) H 02/17/21 13:40 Serum Total Protein 5.3 g/dL (6.4-8.2) L 02/19/21 05:18 Albumin 2.3 g/dL (3.4-5.0) L 02/19/21 05:18 Globulin 3.0 g/dL (2.3-3.5) 02/19/21 05:18 Albumin/Globulin Ratio 0.8 (1.1-1.8) L 02/19/21 05:18 Triglycerides 104 mg/dL (<150) 02/18/21 05:18 Cholesterol 154 mg/dL (<200) 02/18/21 05:18 LDL Cholesterol, Calc 57 (<130) 02/18/21 05:18 HDL Cholesterol 76 mg/dL (40-60) H 02/18/21 05:18 Cholesterol/HDL Ratio 2.03 02/18/21 05:18 Vitamin B12 435 pg/mL (193-986) 02/18/21 05:18 TSH 4.330 uIU/mL (0.360-3.740) H 02/18/21 05:18 Free T4 1.14 ng/dL (0.76-1.46) 02/18/21 05:18 Urine Color Yellow (Yellow) 02/18/21 06:53 Urine Appearance Cloudy (Clear) 02/18/21 06:53 Urine pH 7.5 (5.0-7.0) H 02/18/21 06:53 Ur Specific [place] 1.015 (1.005-1.030) 02/18/21 06:53 Glucose (UA)(Auto) Negative (Negative) 02/18/21 06:53 Urine Ketones Negative (Negative) 02/18/21 06:53 Urine Blood Negative (Negative) 02/18/21 06:53 Urine Nitrite Positive (Negative) H 02/18/21 06:53 Urine Bilirubin Negative (Negative) 02/18/21 06:53 Urine Urobilinogen 1.0 mg/dL (0.2-1.0) 02/18/21 06:53 Ur Leukocyte Esterase Trace (Negative) H 02/18/21 06:53 Urine RBC None seen /HPF (NONE SEEN) 02/18/21 06:53 Urine WBC 5-10 /HPF (<5) H 02/18/21 06:53 Ur Squamous Epith Cells <5 /HPF (NONE SEEN) 02/18/21 06:53 Urine Bacteria >50 /HPF (<20) H 02/18/21 06:53 Urine Culture Reflexed Reflexed 02/18/21 06:53 Urine Total Protein Negative (Negative) 02/18/21 06:53 Plasma/Serum Alcohol < 10 mg/dL (<10) 02/18/21 01:00 SARS-CoV-2 Rap RNA(RT-PCR) Negative (NEGATIVE) 02/17/21 20:13 Microbiology Data (last 24 hrs): 02/18/21 06:53 Clean Catch Urine Girard Count - Final >100,000 CFU/ML. 02/18/21 06:53 Clean Catch Urine - Final Klebsiella Pneumoniae Esbl Escherichia Coli Assessment And Plan - Plan Physical exam: General: Obese HEENT: Atraumatic, Normocephalic Neck: Supple, 2+ carotid pulse no bruit Respiratory: Clear to auscultation bilaterally, Normal air movement Cardiovascular: No edema, Regular rate/rhythm Gastrointestinal: Normal bowel sounds, Non-distended Musculoskeletal: No clubbing, No swelling, No contractures Conclusions/Impression: Antibiotics: vabomere Start: 02/21 Assessment/plan Urinary tract infection Urine culture obtained on 02/18 growing Klebsiella pneumoniae ESBL producing an E coli. Klebsiella producing E ESBL showing intermittent sensitivity to meropenem with an BRINA of 2. Patient started vabomere. Continue to closely monitor renal function, recommend treating for 7 days. Anemia Protein caloric malnutrition: Moderate Diabetes COPD Morbid obesity Hypothyroidism -medical management per primary team with -plan of care discussed Dr. Palacios -thank you for consultation
[2021-02-22] MEDS: ATORVASTATIN 40 MG TAB PO SCH (21:04)
[2021-02-23] MEDS: NA CHLORIDE 0.9% IV SCH ×3 (03:47→20:50)
[2021-02-23 04:33] LABS: BUN Blood Urea Nitrogen 15 mg/dL (7-18); Bicarbonate 31 mmol/L (21-32); Glucose Level 94 mg/dL (74-106); Potassium 3.8 mmol/L (3.5-5.1); Sodium Level 138 mmol/L (136-145)
[2021-02-23] MEDS: METOPROLOL TAR 25 MG TAB PO SCH ×2 (05:41→18:15)
--- NOTE | 2021-02-23 06:03 | P.PN ---
Subjective Date of Service: 02/23/21 Primary Care Provider: unknown Chief Complaint: chest pain Subjective: Doing well Physical Examination - Vital Signs Temperature: 97.7 F Blood Pressure: 122/59 Pulse: 72 Respirations: 18 Pulse Ox (%): 93 Assessment & Plan Discharge Plan: Other ([facility] Plan to discharge in: Greater than 2 days Physician Review Additional Text: COVID: Negative Physical exam: General: Alert, In no apparent distress, Oriented x3, Obese, vital signs stable. HEENT: Atraumatic, Normocephalic, PERRLA Neck: Supple, 2+ carotid pulse no bruit, JVD not distended Respiratory: Clear anteriorly. Currently on 2 L per nasal cannula. Cardiovascular: Normal pulses, Regular rate/rhythm, Normal S1 S2 Gastrointestinal: Normal bowel sounds, Soft and benign, Non-distended Musculoskeletal: No clubbing, No swelling Neurological: Strength good. No significant edema to the lower extremity. External genitalia: No edema, No lesions Impression: Chest pain, resolved Complicated UTI, urine culture positive for Klebsiella pneumoniaeESBL and E. coli COPD with hypercapnia complicated with hypoventilation syndrome and likely underlying sleep apnea Anemia chronic disease with iron deficiency GERD Diabetes mellitus type 2 Hypertension Hyperlipidemia Chronic pain with neuropathy Plan: Chest pain, resolved: Patient doing well at this time. No further chest pain noted. Cardiac enzymes unremarkable. No further work-up required at this time. Complicated UTI, urine culture positive for Klebsiella pneumoniaeESBL and E. coli: Patient doing well on Vabomere 4 gm IV TID for 7 days. Day 3. Continue with IV antibiotic therapy. Recheck urine culture today. Case discussed in detail with social work. Social work reports patient not able to get this IV antibiotic therapy at the skilled facility due to cost. Therefore patient will need to remain in the hospital to continue IV antibiotic treatment. Once treatment has completed then a new authorization for [facility] will need to be resubmitted. This can occur on Saturday. COPD with hypercapnia complicated with hypoventilation syndrome and likely underlying sleep apnea: Patient doing well. Continue with COPD treatmentalbuterol/Atrovent/Brovana. Wean off prednisone. Patient stable on Diamox 250 mg 1 pill daily. Continue to wean off oxygen. Anemia chronic disease with iron deficiency: Continue iron supplementationiron 325 mg 1 pill twice daily. GERD: Continue Protonix 40 mg daily. Diabetes mellitus type 2: Hemoglobin A1c 5.0. Well-controlled. Continue Accu-Cheks and sliding scale. Hypertension: Stable on metoprolol 12.5 mg 1 pill twice daily. Will monitor and adjust appropriately. Hyperlipidemia: Continue Lipitor 40 mg daily. Chronic pain with neuropathy: Continue with Cymbalta 30 mg daily. Will provide medication for pain. Physical therapy and Occupational Therapy to help ambulate. CODE STATUS: Full code DVT prophylaxis: Dial[employer] Advance care [id number] minutes: Patient cannot go to skilled facility due to cost of IV antibiotic therapy at this time. Patient will need to complete treatment of IV tabetic therapy in the hospital. Last day of treatment will be Saturday. On that day new authorization for skilled can be resubmitted. Time Spent Managing Pts Care (In Minutes): 55
[2021-02-23] MEDS: INSULIN -REGULAR HUMAN 50 UNIT/0.5 ML ML SQ SCH ×4 (07:30→20:51)
[2021-02-23] MEDS: PANTOPRAZOLE 40MG TABLET PO SCH (08:58)
[2021-02-23] MEDS: FERROUS SULFATE 325 MG TAB PO SCH ×2 (08:58→20:50)
[2021-02-23] MEDS: THIAMINE HCL 100 MG TABLET PO SCH (08:58)
[2021-02-23] MEDS: ASCORBIC ACID 500 MG TABLET PO SCH ×2 (08:58→20:50)
[2021-02-23] MEDS: FOLIC ACID 1 MG TABLET PO SCH (08:58)
[2021-02-23] MEDS: acetaZOLAMIDE 250 MG TAB PO SCH (08:58)
[2021-02-23] MEDS: ZINC SULFATE 220 MG CAP PO SCH (08:58)
[2021-02-23] MEDS: MULTIVIT W/ MINERAL TAB PO SCH (08:59)
[2021-02-23] MEDS: LACTOBACILLUS/ACIDOPHILUS TAB PO SCH ×3 (08:59→20:50)
[2021-02-23] MEDS: predniSONE 10 MG TAB PO SCH (08:59)
[2021-02-23] MEDS: DULOXETINE 30 MG CAP PO SCH (08:59)
[2021-02-23] MEDS: POTASSIUM CL SA 10 MEQ TAB PO SCH (08:59)
[2021-02-23] MEDS: ASPIRIN EC 81 MG TAB PO SCH (08:59)
[2021-02-23] MEDS: ENOXAPARIN 40 MG/0.4 ML SQ SCH (09:00)
[2021-02-23] MEDS: JUVEN PACKET PO SCH ×2 (09:00→20:52)
[2021-02-23] MEDS: ARFORMOTEROL TARTRATE 15 MCG/2 ML VIAL.NEB NEB SCH ×2 (09:55→20:35)
--- NOTE | 2021-02-23 11:11 | P.PN ---
Subjective Date of Service: 02/23/21 Primary Care Provider: unknown Chief Complaint: chest pain Patient seen examined at bedside, no acute events. Review of Systems 10-point ROS is otherwise unremarkable Physical Examination - Vital Signs Temperature: 97.7 F Blood Pressure: 122/59 Pulse: 72 Respirations: 18 Pulse Ox (%): 93 - Studies Laboratory Last Values WBC 6.50 K/uL (4.3-10.9) D 02/19/21 05:18 RBC 2.93 M/uL (3.86-4.86) L 02/19/21 05:18 Hgb 9.5 g/dL (12.0-15.0) L 02/19/21 05:18 Hct 29.3 % (36.0-45.0) L 02/19/21 05:18 MCV 99.9 fL (80-100) 02/19/21 05:18 MCH 32.5 pg (27.0-35.0) 02/19/21 05:18 MCHC 32.6 g/dL (32.0-36.0) 02/19/21 05:18 RDW 17.4 % (12.1-15.2) H 02/19/21 05:18 Plt Count 211 K/uL (152-406) 02/19/21 05:18 MPV 9.4 fL (7.6-11.3) 02/19/21 05:18 Neutrophils % 57.3 % (41.7-73.7) 02/19/21 05:18 Lymphocytes % 31.0 % (15.3-44.8) 02/19/21 05:18 Monocytes % 10.0 % (3.3-12.3) 02/19/21 05:18 Eosinophils % 1.1 % (0-4.4) 02/19/21 05:18 Basophils % 0.6 % (0-1.3) 02/19/21 05:18 Absolute Neutrophils 3.7 K/uL (1.8-8.0) 02/19/21 05:18 Absolute Lymphocytes 2.0 K/uL (0.7-4.9) 02/19/21 05:18 Absolute Monocytes 0.6 K/uL (0.1-1.3) 02/19/21 05:18 Absolute Eosinophils 0.1 K/uL (0-0.5) 02/19/21 05:18 Absolute Basophils 0.0 K/uL (0-0.5) 02/19/21 05:18 PT 11.7 SECONDS (9.5-12.5) 02/17/21 13:40 INR 1.02 02/17/21 13:40 Sodium 138 mmol/L (136-145) 02/19/21 05:18 Potassium 3.6 mmol/L (3.5-5.1) 02/19/21 05:18 Chloride 96 mmol/L (98-107) L 02/19/21 05:18 Carbon Dioxide 36 mmol/L (21-32) H 02/19/21 05:18 BUN 10 mg/dL (7-18) 02/19/21 05:18 Creatinine 0.39 mg/dL (0.55-1.3) L 02/19/21 05:18 Estimated GFR > 90 mL/min (=/>90) 02/19/21 05:18 Glucose 77 mg/dL (74-106) 02/19/21 05:18 POC Glucose 95 mg/dL (65-120) 02/19/21 11:32 Hemoglobin A1c 5.0 % (4.2-6.3) 02/18/21 05:18 Calcium 8.5 mg/dL (8.5-10.1) 02/19/21 05:18 Phosphorus 2.6 mg/dL (2.5-4.9) 02/18/21 05:18 Magnesium 1.9 mg/dL (1.8-2.4) 02/19/21 05:18 Iron 34.0 ug/dL (50-170) L 02/18/21 05:18 TIBC 213 ug/dL (250-460) L 02/18/21 05:18 Transferrin 152 mg/dL (200-360) L 02/18/21 05:18 Transferrin % Sat 16.0 % (20.0-50.0) L 02/18/21 05:18 Ferritin 408.9 ng/mL (8-388) H 02/18/21 05:18 Total Bilirubin 0.5 mg/dL (0.2-1.0) 02/19/21 05:18 Direct Bilirubin 0.2 mg/dL (0-0.2) 02/17/21 13:40 AST 26 U/L (15-37) 02/19/21 05:18 ALT 31 U/L (12-78) 02/19/21 05:18 Alkaline Phosphatase 85 U/L (45-117) 02/19/21 05:18 Rapid Troponin I < 0.02 ng/mL (0.0-0.045) 02/17/21 13:40 Troponin I 0.02 ng/mL (0.0-0.045) 02/18/21 05:18 NT-Pro-B Natriuret Pep 552 pg/mL (<125) H 02/17/21 13:40 Serum Total Protein 5.3 g/dL (6.4-8.2) L 02/19/21 05:18 Albumin 2.3 g/dL (3.4-5.0) L 02/19/21 05:18 Globulin 3.0 g/dL (2.3-3.5) 02/19/21 05:18 Albumin/Globulin Ratio 0.8 (1.1-1.8) L 02/19/21 05:18 Triglycerides 104 mg/dL (<150) 02/18/21 05:18 Cholesterol 154 mg/dL (<200) 02/18/21 05:18 LDL Cholesterol, Calc 57 (<130) 02/18/21 05:18 HDL Cholesterol 76 mg/dL (40-60) H 02/18/21 05:18 Cholesterol/HDL Ratio 2.03 02/18/21 05:18 Vitamin B12 435 pg/mL (193-986) 02/18/21 05:18 TSH 4.330 uIU/mL (0.360-3.740) H 02/18/21 05:18 Free T4 1.14 ng/dL (0.76-1.46) 02/18/21 05:18 Urine Color Yellow (Yellow) 02/18/21 06:53 Urine Appearance Cloudy (Clear) 02/18/21 06:53 Urine pH 7.5 (5.0-7.0) H 02/18/21 06:53 Ur Specific [place] 1.015 (1.005-1.030) 02/18/21 06:53 Glucose (UA)(Auto) Negative (Negative) 02/18/21 06:53 Urine Ketones Negative (Negative) 02/18/21 06:53 Urine Blood Negative (Negative) 02/18/21 06:53 Urine Nitrite Positive (Negative) H 02/18/21 06:53 Urine Bilirubin Negative (Negative) 02/18/21 06:53 Urine Urobilinogen 1.0 mg/dL (0.2-1.0) 02/18/21 06:53 Ur Leukocyte Esterase Trace (Negative) H 02/18/21 06:53 Urine RBC None seen /HPF (NONE SEEN) 02/18/21 06:53 Urine WBC 5-10 /HPF (<5) H 02/18/21 06:53 Ur Squamous Epith Cells <5 /HPF (NONE SEEN) 02/18/21 06:53 Urine Bacteria >50 /HPF (<20) H 02/18/21 06:53 Urine Culture Reflexed Reflexed 02/18/21 06:53 Urine Total Protein Negative (Negative) 02/18/21 06:53 Plasma/Serum Alcohol < 10 mg/dL (<10) 02/18/21 01:00 SARS-CoV-2 Rap RNA(RT-PCR) Negative (NEGATIVE) 02/17/21 20:13 Assessment And Plan - Plan Physical exam: General: Obese HEENT: Atraumatic, Normocephalic Neck: Supple, 2+ carotid pulse no bruit Respiratory: Clear to auscultation bilaterally, Normal air movement Cardiovascular: No edema, Regular rate/rhythm Gastrointestinal: Normal bowel sounds, Non-distended Musculoskeletal: No clubbing, No swelling, No contractures Conclusions/Impression: Antibiotics: vabomere Start: 02/21 Assessment/plan Urinary tract infection Urine culture obtained on 02/18 growing Klebsiella pneumoniae ESBL producing an E coli. Klebsiella producing E ESBL showing intermittent sensitivity to meropenem with an BRINA of 2. As such, patient started vabomere. Continue to closely monitor renal function, recommend treating for 7 days. Anemia Protein caloric malnutrition: Moderate Diabetes COPD Morbid obesity Hypothyroidism -medical management per primary team with -plan of care discussed Dr. Palacios -thank you for consultation
[2021-02-23] MEDS: HYDROCODONE/APAP 5/325 MG TAB PO PRN (14:04)
[2021-02-23] MEDS: IPRATROPIUM BROM 0.5MG/2.5ML NEB PRN (20:35)
[2021-02-23] MEDS: ATORVASTATIN 40 MG TAB PO SCH (20:50)
[2021-02-24] MEDS: NA CHLORIDE 0.9% IV SCH ×3 (04:58→20:48)
[2021-02-24] MEDS: METOPROLOL TAR 25 MG TAB PO SCH ×2 (05:01→17:59)
--- NOTE | 2021-02-24 06:11 | P.PN ---
Subjective Date of Service: 02/24/21 Primary Care Provider: unknown Chief Complaint: chest pain Subjective: Improving, Doing well Physical Examination - Vital Signs Temperature: 97.3 F Blood Pressure: 139/71 Pulse: 79 Respirations: 17 Pulse Ox (%): 97 Assessment & Plan Discharge Plan: Other (snf facility) Plan to discharge in: Greater than 2 days Physician Review Additional Text: COVID: Negative Physical exam: General: Alert, In no apparent distress, Oriented x3, Obese, vital signs stable. HEENT: Atraumatic, Normocephalic, PERRLA Neck: Supple, 2+ carotid pulse no bruit, JVD not distended Respiratory: Clear anteriorly. Currently on 2 L per nasal cannula. Cardiovascular: Normal pulses, Regular rate/rhythm, Normal S1 S2 Gastrointestinal: Normal bowel sounds, Soft and benign, Non-distended Musculoskeletal: No clubbing, No swelling Neurological: Strength good. No significant edema to the lower extremity. External genitalia: No edema, No lesions Impression: Chest pain, resolved Complicated UTI, urine culture positive for Klebsiella pneumoniaeESBL and E. coli COPD with hypercapnia complicated with hypoventilation syndrome and likely underlying sleep apnea Anemia chronic disease with iron deficiency GERD Diabetes mellitus type 2 Hypertension Hyperlipidemia Chronic pain with neuropathy Plan: Chest pain, resolved: Patient continues to do well.. No further chest pain noted. Cardiac enzymes unremarkable. No further work-up required at this time. Complicated UTI, urine culture positive for Klebsiella pneumoniaeESBL and E. coli: Patient doing well on Vabomere 4 gm IV TID for 7 days. Day four. Continue with IV antibiotic therapy. Recheck urine culture today to monitor resolution of infection. Case discussed in detail with social work. Social work reports patient not able to get this IV antibiotic therapy at the skilled facility due to cost. Therefore patient will need to remain in the hospital to continue IV antibiotic treatment. Once treatment has completed then a new authorization for skilled will need to be resubmitted. This can occur on Saturday. COPD with hypercapnia complicated with hypoventilation syndrome and likely underlying sleep apnea: Patient doing well. Continue with COPD treatmentalbuterol/Atrovent/Brovana. Wean off prednisone. Patient stable on Diamox 250 mg 1 pill daily. Continue to wean off oxygen. Anemia chronic disease with iron deficiency: Continue iron supplementationiron 325 mg 1 pill twice daily. GERD: Continue Protonix 40 mg daily. Diabetes mellitus type 2: Hemoglobin A1c 5.0. Well-controlled. Continue Accu- Cheks and sliding scale. Hypertension: Stable on metoprolol 12.5 mg 1 pill twice daily. Will monitor and adjust appropriately. Hyperlipidemia: Continue Lipitor 40 mg daily. Chronic pain with neuropathy: Continue with Cymbalta 30 mg daily. Will provide medication for pain. Physical therapy and Occupational Therapy to help ambulate. CODE STATUS: Full code DVT prophylaxis: Lovenox [facility] care [id number] minutes: Patient cannot go to skilled facility due to cost of IV antibiotic therapy at this time. Patient will need to complete treatment of IV tabetic therapy in the hospital. Last day of treatment will be Saturday. On that day new authorization for skilled can be resubmitted. Time Spent Managing Pts Care (In Minutes): 55
[2021-02-24] MEDS: INSULIN -REGULAR HUMAN 50 UNIT/0.5 ML ML SQ SCH ×4 (07:30→20:49)
[2021-02-24] MEDS: ARFORMOTEROL TARTRATE 15 MCG/2 ML VIAL.NEB NEB SCH ×2 (08:21→20:20)
[2021-02-24] MEDS: JUVEN PACKET PO SCH ×2 (09:00→21:00)
[2021-02-24] MEDS: POTASSIUM CL SA 10 MEQ TAB PO SCH (09:39)
[2021-02-24] MEDS: FERROUS SULFATE 325 MG TAB PO SCH ×2 (09:39→20:49)
[2021-02-24] MEDS: ASCORBIC ACID 500 MG TABLET PO SCH ×2 (09:39→20:49)
[2021-02-24] MEDS: DULOXETINE 30 MG CAP PO SCH (09:39)
[2021-02-24] MEDS: THIAMINE HCL 100 MG TABLET PO SCH (09:39)
[2021-02-24] MEDS: acetaZOLAMIDE 250 MG TAB PO SCH (09:39)
[2021-02-24] MEDS: ZINC SULFATE 220 MG CAP PO SCH (09:39)
[2021-02-24] MEDS: ASPIRIN EC 81 MG TAB PO SCH (09:39)
[2021-02-24] MEDS: ENOXAPARIN 40 MG/0.4 ML SQ SCH (09:39)
[2021-02-24] MEDS: FOLIC ACID 1 MG TABLET PO SCH (09:39)
[2021-02-24] MEDS: MULTIVIT W/ MINERAL TAB PO SCH (09:39)
[2021-02-24] MEDS: PANTOPRAZOLE 40MG TABLET PO SCH (09:39)
[2021-02-24] MEDS: LACTOBACILLUS/ACIDOPHILUS TAB PO SCH ×3 (09:45→20:49)
[2021-02-24] MEDS: predniSONE 10 MG TAB PO SCH (09:45)
--- NOTE | 2021-02-24 12:10 | P.PN ---
Subjective Date of Service: 02/24/21 Primary Care Provider: unknown Chief Complaint: chest pain Patient seen examined at bedside, no acute events. Review of Systems 10-point ROS is otherwise unremarkable Physical Examination - Vital Signs Temperature: 97.0 F Blood Pressure: 118/58 Pulse: 87 Respirations: 16 Pulse Ox (%): 93 - Studies Laboratory Last Values WBC 6.50 K/uL (4.3-10.9) D 02/19/21 05:18 RBC 2.93 M/uL (3.86-4.86) L 02/19/21 05:18 Hgb 9.5 g/dL (12.0-15.0) L 02/19/21 05:18 Hct 29.3 % (36.0-45.0) L 02/19/21 05:18 MCV 99.9 fL (80-100) 02/19/21 05:18 MCH 32.5 pg (27.0-35.0) 02/19/21 05:18 MCHC 32.6 g/dL (32.0-36.0) 02/19/21 05:18 RDW 17.4 % (12.1-15.2) H 02/19/21 05:18 Plt Count 211 K/uL (152-406) 02/19/21 05:18 MPV 9.4 fL (7.6-11.3) 02/19/21 05:18 Neutrophils % 57.3 % (41.7-73.7) 02/19/21 05:18 Lymphocytes % 31.0 % (15.3-44.8) 02/19/21 05:18 Monocytes % 10.0 % (3.3-12.3) 02/19/21 05:18 Eosinophils % 1.1 % (0-4.4) 02/19/21 05:18 Basophils % 0.6 % (0-1.3) 02/19/21 05:18 Absolute Neutrophils 3.7 K/uL (1.8-8.0) 02/19/21 05:18 Absolute Lymphocytes 2.0 K/uL (0.7-4.9) 02/19/21 05:18 Absolute Monocytes 0.6 K/uL (0.1-1.3) 02/19/21 05:18 Absolute Eosinophils 0.1 K/uL (0-0.5) 02/19/21 05:18 Absolute Basophils 0.0 K/uL (0-0.5) 02/19/21 05:18 PT 11.7 SECONDS (9.5-12.5) 02/17/21 13:40 INR 1.02 02/17/21 13:40 Sodium 138 mmol/L (136-145) 02/19/21 05:18 Potassium 3.6 mmol/L (3.5-5.1) 02/19/21 05:18 Chloride 96 mmol/L (98-107) L 02/19/21 05:18 Carbon Dioxide 36 mmol/L (21-32) H 02/19/21 05:18 BUN 10 mg/dL (7-18) 02/19/21 05:18 Creatinine 0.39 mg/dL (0.55-1.3) L 02/19/21 05:18 Estimated GFR > 90 mL/min (=/>90) 02/19/21 05:18 Glucose 77 mg/dL (74-106) 02/19/21 05:18 POC Glucose 95 mg/dL (65-120) 02/19/21 11:32 Hemoglobin A1c 5.0 % (4.2-6.3) 02/18/21 05:18 Calcium 8.5 mg/dL (8.5-10.1) 02/19/21 05:18 Phosphorus 2.6 mg/dL (2.5-4.9) 02/18/21 05:18 Magnesium 1.9 mg/dL (1.8-2.4) 02/19/21 05:18 Iron 34.0 ug/dL (50-170) L 02/18/21 05:18 TIBC 213 ug/dL (250-460) L 02/18/21 05:18 Transferrin 152 mg/dL (200-360) L 02/18/21 05:18 Transferrin % Sat 16.0 % (20.0-50.0) L 02/18/21 05:18 Ferritin 408.9 ng/mL (8-388) H 02/18/21 05:18 Total Bilirubin 0.5 mg/dL (0.2-1.0) 02/19/21 05:18 Direct Bilirubin 0.2 mg/dL (0-0.2) 02/17/21 13:40 AST 26 U/L (15-37) 02/19/21 05:18 ALT 31 U/L (12-78) 02/19/21 05:18 Alkaline Phosphatase 85 U/L (45-117) 02/19/21 05:18 Rapid Troponin I < 0.02 ng/mL (0.0-0.045) 02/17/21 13:40 Troponin I 0.02 ng/mL (0.0-0.045) 02/18/21 05:18 NT-Pro-B Natriuret Pep 552 pg/mL (<125) H 02/17/21 13:40 Serum Total Protein 5.3 g/dL (6.4-8.2) L 02/19/21 05:18 Albumin 2.3 g/dL (3.4-5.0) L 02/19/21 05:18 Globulin 3.0 g/dL (2.3-3.5) 02/19/21 05:18 Albumin/Globulin Ratio 0.8 (1.1-1.8) L 02/19/21 05:18 Triglycerides 104 mg/dL (<150) 02/18/21 05:18 Cholesterol 154 mg/dL (<200) 02/18/21 05:18 LDL Cholesterol, Calc 57 (<130) 02/18/21 05:18 HDL Cholesterol 76 mg/dL (40-60) H 02/18/21 05:18 Cholesterol/HDL Ratio 2.03 02/18/21 05:18 Vitamin B12 435 pg/mL (193-986) 02/18/21 05:18 TSH 4.330 uIU/mL (0.360-3.740) H 02/18/21 05:18 Free T4 1.14 ng/dL (0.76-1.46) 02/18/21 05:18 Urine Color Yellow (Yellow) 02/18/21 06:53 Urine Appearance Cloudy (Clear) 02/18/21 06:53 Urine pH 7.5 (5.0-7.0) H 02/18/21 06:53 Ur Specific [place] 1.015 (1.005-1.030) 02/18/21 06:53 Glucose (UA)(Auto) Negative (Negative) 02/18/21 06:53 Urine Ketones Negative (Negative) 02/18/21 06:53 Urine Blood Negative (Negative) 02/18/21 06:53 Urine Nitrite Positive (Negative) H 02/18/21 06:53 Urine Bilirubin Negative (Negative) 02/18/21 06:53 Urine Urobilinogen 1.0 mg/dL (0.2-1.0) 02/18/21 06:53 Ur Leukocyte Esterase Trace (Negative) H 02/18/21 06:53 Urine RBC None seen /HPF (NONE SEEN) 02/18/21 06:53 Urine WBC 5-10 /HPF (<5) H 02/18/21 06:53 Ur Squamous Epith Cells <5 /HPF (NONE SEEN) 02/18/21 06:53 Urine Bacteria >50 /HPF (<20) H 02/18/21 06:53 Urine Culture Reflexed Reflexed 02/18/21 06:53 Urine Total Protein Negative (Negative) 02/18/21 06:53 Plasma/Serum Alcohol < 10 mg/dL (<10) 02/18/21 01:00 SARS-CoV-2 Rap RNA(RT-PCR) Negative (NEGATIVE) 02/17/21 20:13 Assessment And Plan - Plan Physical exam: General: Obese HEENT: Atraumatic, Normocephalic Neck: Supple, 2+ carotid pulse no bruit Respiratory: Clear to auscultation bilaterally, Normal air movement Cardiovascular: No edema, Regular rate/rhythm Gastrointestinal: Normal bowel sounds, Non-distended Musculoskeletal: No clubbing, No swelling, No contractures Conclusions/Impression: Antibiotics: vabomere Start: 02/21 Assessment/plan Urinary tract infection Urine culture obtained on 02/18 growing Klebsiella pneumoniae ESBL producing an E coli. Klebsiella producing E ESBL showing intermittent sensitivity to meropenem with an BRINA of 2. As such, patient started vabomere. Continue to closely monitor renal function, recommend treating for 7 days. Anemia Protein caloric malnutrition: Moderate Diabetes COPD Morbid obesity Hypothyroidism -medical management per primary team with -plan of care discussed Dr. Palacios -thank you for consultation Physician Review Additional Text: tment of IV tabetic therapy in the hospital. Last day of treatment will be Saturday. On that day new authorization for skilled can be resubmitted.
[2021-02-24] MEDS: HYDROCODONE/APAP 5/325 MG TAB PO PRN ×2 (12:14→20:48)
[2021-02-24] MEDS: ATORVASTATIN 40 MG TAB PO SCH (20:49)
[2021-02-25] MEDS: NA CHLORIDE 0.9% IV SCH ×3 (04:31→20:26)
[2021-02-25] MEDS: METOPROLOL TAR 25 MG TAB PO SCH ×2 (05:06→18:04)
--- NOTE | 2021-02-25 05:52 | P.PN ---
Subjective Date of Service: 02/25/21 Primary Care Provider: unknown Chief Complaint: chest pain Subjective: Improving, Doing well Physical Examination - Vital Signs Temperature: 97.5 F Blood Pressure: 124/53 Pulse: 89 Respirations: 16 Pulse Ox (%): 96 Assessment & Plan Discharge Plan: Home (Home with home health) Plan to discharge in: 48 Hours Physician Review Additional Text: COVID: Negative Physical exam: General: Alert, In no apparent distress, Oriented x3, Obese, vital signs stable. HEENT: Atraumatic, Normocephalic, PERRLA Neck: Supple, 2+ carotid pulse no bruit, JVD not distended Respiratory: Clear anteriorly. Currently on 2 L per nasal cannula. Cardiovascular: Normal pulses, Regular rate/rhythm, Normal S1 S2 Gastrointestinal: Normal bowel sounds, Soft and benign, Non-distended Musculoskeletal: No clubbing, No swelling Neurological: Strength good. No significant edema to the lower extremity. External genitalia: No edema, No lesions Impression: Chest pain, resolved Complicated UTI, urine culture positive for Klebsiella pneumoniaeESBL and E. coli COPD with hypercapnia complicated with hypoventilation syndrome and likely underlying sleep apnea Anemia chronic disease with iron deficiency GERD Diabetes mellitus type 2 Hypertension Hyperlipidemia Chronic pain with neuropathy Plan: Chest pain, resolved: Patient continues to do well. No further chest pain noted. Cardiac enzymes unremarkable. No further work-up required at this time. Complicated UTI, urine culture positive for Klebsiella pneumoniaeESBL and E. coli: Patient continues to do well. Patient remains on Vabomere 4 gm IV TID for 7 days. Day 5. Continue with IV antibiotic therapy for total of 7 days. Recheck urine culture done yesterday. Await results for resolution. Patient considering going home after treatment. This was addressed again today. She benjamin d considered skilled placement but would prefer to go home with home health. COPD with hypercapnia complicated with hypoventilation syndrome and likely underlying sleep apnea: Patient doing well. Continue with COPD treatmentalbuterol/Atrovent/Brovana. Wean off prednisone. Patient stable on Diamox 250 mg 1 pill daily. Continue to wean off oxygen. Anemia chronic disease with iron deficiency: Continue iron supplementationiron 325 mg 1 pill twice daily. GERD: Continue Protonix 40 mg daily. Diabetes mellitus type 2: Hemoglobin A1c 5.0. Well-controlled. Continue Accu- Cheks and sliding scale. Hypertension: Stable on metoprolol 12.5 mg 1 pill twice daily. Will monitor and adjust appropriately. Hyperlipidemia: Continue Lipitor 40 mg daily. Chronic pain with neuropathy: Continue with Cymbalta 30 mg daily. Will provide medication for pain. Physical therapy and Occupational Therapy to help ambulate. CODE STATUS: Full code DVT prophylaxis: Lovenox Advance care [id number] minutes: Patient remains in hospital to continue IV antibiotic treatment. Once resolved patient desires to go home at discharge with home health. She had initially planned for skilled placement but she would prefer to go home at discharge. Continue physical therapy. Time Spent Managing Pts Care (In Minutes): 55
[2021-02-25] MEDS: INSULIN -REGULAR HUMAN 50 UNIT/0.5 ML ML SQ SCH ×4 (07:30→19:38)
[2021-02-25] MEDS: JUVEN PACKET PO SCH ×2 (09:00→19:38)
[2021-02-25] MEDS: HYDROCODONE/APAP 5/325 MG TAB PO PRN (09:24)
[2021-02-25] MEDS: LACTOBACILLUS/ACIDOPHILUS TAB PO SCH ×3 (09:24→20:26)
[2021-02-25] MEDS: POTASSIUM CL SA 10 MEQ TAB PO SCH (09:24)
[2021-02-25] MEDS: ZINC SULFATE 220 MG CAP PO SCH (09:25)
[2021-02-25] MEDS: predniSONE 10 MG TAB PO SCH (09:25)
[2021-02-25] MEDS: ASCORBIC ACID 500 MG TABLET PO SCH ×2 (09:25→20:26)
[2021-02-25] MEDS: FOLIC ACID 1 MG TABLET PO SCH (09:25)
[2021-02-25] MEDS: PANTOPRAZOLE 40MG TABLET PO SCH (09:25)
[2021-02-25] MEDS: MULTIVIT W/ MINERAL TAB PO SCH (09:25)
[2021-02-25] MEDS: DULOXETINE 30 MG CAP PO SCH (09:25)
[2021-02-25] MEDS: FERROUS SULFATE 325 MG TAB PO SCH ×2 (09:25→20:26)
[2021-02-25] MEDS: THIAMINE HCL 100 MG TABLET PO SCH (09:26)
[2021-02-25] MEDS: acetaZOLAMIDE 250 MG TAB PO SCH (09:26)
[2021-02-25] MEDS: ASPIRIN EC 81 MG TAB PO SCH (09:26)
[2021-02-25] MEDS: ENOXAPARIN 40 MG/0.4 ML SQ SCH (09:27)
[2021-02-25] MEDS: ARFORMOTEROL TARTRATE 15 MCG/2 ML VIAL.NEB NEB SCH ×2 (11:05→19:30)
[2021-02-25] MEDS ORDERED: LACTULOSE 20 GM/30 ML UCUP PO PRN (11:21)
[2021-02-25] MEDS: ATORVASTATIN 40 MG TAB PO SCH (20:26)
[2021-02-26] MEDS: NA CHLORIDE 0.9% IV SCH ×3 (02:59→20:42)
[2021-02-26] MEDS: METOPROLOL TAR 25 MG TAB PO SCH ×2 (05:26→18:21)
--- NOTE | 2021-02-26 06:02 | P.PN ---
Subjective Date of Service: 02/26/21 Primary Care Provider: unknown Chief Complaint: chest pain Subjective: Improving, Doing well Physical Examination - Vital Signs Temperature: 97.5 F Blood Pressure: 110/67 Pulse: 89 Respirations: 16 Pulse Ox (%): 98 - Studies Laboratory Data (last 24 hrs) 02/18/21 05:18: Hct 32.2 Assessment & Plan Discharge Plan: Home (Home with home health and physical therapy) Plan to discharge in: 24 Hours Physician Review Additional Text: COVID: Negative Physical exam: General: Alert, In no apparent distress, Oriented x3, Obese, vital signs stable. HEENT: Atraumatic, Normocephalic, PERRLA Neck: Supple, 2+ carotid pulse no bruit, JVD not distended Respiratory: Clear anteriorly. Currently on 2 L per nasal cannula. Cardiovascular: Normal pulses, Regular rate/rhythm, Normal S1 S2 Gastrointestinal: Normal bowel sounds, Soft and benign, Non-distended Musculoskeletal: No clubbing, No swelling Neurological: Strength good. No significant edema to the lower extremity. External genitalia: No edema, No lesions Impression: Chest pain, resolved Complicated UTI, urine culture positive for Klebsiella pneumoniaeESBL and E. coli COPD with hypercapnia complicated with hypoventilation syndrome and likely underlying sleep apnea Anemia chronic disease with iron deficiency GERD Diabetes mellitus type 2 Hypertension Hyperlipidemia Chronic pain with neuropathy Plan: Chest pain, resolved: Patient continues to do well. No further chest pain noted. Cardiac enzymes unremarkable. No further work-up required at this time. Anticipate discharge tomorrow with home health and physical therapy after final day of treatment of UTI. Complicated UTI, urine culture positive for Klebsiella pneumoniaeESBL and E. coli: Patient continues to do well. Patient remains on Vabomere 4 gm IV TID for 7 days. Day 6. Continue with IV antibiotic therapy for total of 7 days which will end tomorrow. Repeat urine culture so far negative. Patient desires to go home at discharge. Patient was considering skilled placement. We will plan for discharge tomorrow. Social work to help arrange for home health and physical therapy along with home oxygen. I will turn the service over to the hospitalist team tomorrow. I will go over plan of care with him. COPD with hypercapnia complicated with hypoventilation syndrome and likely underlying sleep apnea: Patient doing well. Continue with COPD treatmentalbuterol/Atrovent/Brovana. Wean off prednisone. Patient stable on Diamox 250 mg 1 pill daily. Continue home oxygen. Currently on 2 L per nasal cannula. Anemia chronic disease with iron deficiency: Continue iron supplementationiron 325 mg 1 pill twice daily. GERD: Continue Protonix 40 mg daily. Diabetes mellitus type 2: Hemoglobin A1c 5.0. Well-controlled. No need for medication. Continue Accu-Cheks and sliding scale. Hypertension: Stable on metoprolol 12.5 mg 1 pill twice daily. Will monitor and adjust appropriately. Hyperlipidemia: Continue Lipitor 40 mg daily. Chronic pain with neuropathy: Continue with Cymbalta 30 mg daily. Will provide medication for pain. Physical therapy and Occupational Therapy to help ambulate. CODE STATUS: Full code DVT prophylaxis: Mary Advance care [id number] minutes: Patient remains in hospital to continue IV antibiotic treatment. She will finish this treatment tomorrow. Patient initially desired skilled placement but prefers to go home at discharge. Anticipate home discharge tomorrow with home health and physical therapy along with home oxygen. Time Spent Managing Pts Care (In Minutes): 55
[2021-02-26 06:17] LABS: Absolute Lymphocytes (CBC) 2.7 K/uL (0.7-4.9); Hematocrit 30.1 % (36.0-45.0); Lymphocytes % 36.8 % (15.3-44.8); MPV 9.4 fL (7.6-11.3)
[2021-02-26] MEDS: INSULIN -REGULAR HUMAN 50 UNIT/0.5 ML ML SQ SCH ×4 (07:30→20:43)
[2021-02-26] MEDS: ARFORMOTEROL TARTRATE 15 MCG/2 ML VIAL.NEB NEB SCH ×2 (08:42→19:20)
[2021-02-26] MEDS: ZINC SULFATE 220 MG CAP PO SCH (11:03)
[2021-02-26] MEDS: POTASSIUM CL SA 10 MEQ TAB PO SCH (11:03)
[2021-02-26] MEDS: JUVEN PACKET PO SCH ×2 (11:03→21:00)
[2021-02-26] MEDS: ENOXAPARIN 40 MG/0.4 ML SQ SCH (11:03)
[2021-02-26] MEDS: PANTOPRAZOLE 40MG TABLET PO SCH (11:03)
[2021-02-26] MEDS: LACTOBACILLUS/ACIDOPHILUS TAB PO SCH ×3 (11:03→20:42)
[2021-02-26] MEDS: FOLIC ACID 1 MG TABLET PO SCH (11:04)
[2021-02-26] MEDS: DULOXETINE 30 MG CAP PO SCH (11:04)
[2021-02-26] MEDS: ASPIRIN EC 81 MG TAB PO SCH (11:04)
[2021-02-26] MEDS: ASCORBIC ACID 500 MG TABLET PO SCH ×2 (11:04→20:42)
[2021-02-26] MEDS: DOCUSATE NA 100 MG CAP PO SCH (11:04)
[2021-02-26] MEDS: THIAMINE HCL 100 MG TABLET PO SCH (11:04)
[2021-02-26] MEDS: FERROUS SULFATE 325 MG TAB PO SCH ×2 (11:04→20:42)
[2021-02-26] MEDS: acetaZOLAMIDE 250 MG TAB PO SCH (11:04)
[2021-02-26] MEDS: MULTIVIT W/ MINERAL TAB PO SCH (11:04)
[2021-02-26] MEDS: ATORVASTATIN 40 MG TAB PO SCH (20:42)
[2021-02-26] MEDS: HYDROCODONE/APAP 5/325 MG TAB PO PRN (20:42)
[2021-02-27] MEDS: NA CHLORIDE 0.9% IV SCH ×2 (06:06→12:01)
[2021-02-27] MEDS: METOPROLOL TAR 25 MG TAB PO SCH ×2 (06:06→17:47)
[2021-02-27 06:50] LABS: Absolute Lymphocytes (CBC) 2.3 K/uL (0.7-4.9); BUN Blood Urea Nitrogen 18 mg/dL (7-18); Bicarbonate 30 mmol/L (21-32); Glucose Level 87 mg/dL (74-106); Hematocrit 30.1 % (36.0-45.0); Lymphocytes % 37.5 % (15.3-44.8); Magnesium 2.4 mg/dL (1.8-2.4); Phosphorus 2.6 mg/dL (2.5-4.9); Potassium 3.6 mmol/L (3.5-5.1); RBC Red Blood Cell Count 2.99 M/uL (3.86-4.86); Sodium Level 139 mmol/L (136-145)
[2021-02-27] MEDS: INSULIN -REGULAR HUMAN 50 UNIT/0.5 ML ML SQ SCH ×3 (07:30→16:20)
[2021-02-27] MEDS: ARFORMOTEROL TARTRATE 15 MCG/2 ML VIAL.NEB NEB SCH (08:18)
[2021-02-27] MEDS: THIAMINE HCL 100 MG TABLET PO SCH (08:39)
[2021-02-27] MEDS: ENOXAPARIN 40 MG/0.4 ML SQ SCH (08:39)
[2021-02-27] MEDS: MULTIVIT W/ MINERAL TAB PO SCH (08:39)
[2021-02-27] MEDS: FOLIC ACID 1 MG TABLET PO SCH (08:39)
[2021-02-27] MEDS: JUVEN PACKET PO SCH (08:39)
[2021-02-27] MEDS: acetaZOLAMIDE 250 MG TAB PO SCH (08:40)
[2021-02-27] MEDS: DULOXETINE 30 MG CAP PO SCH (08:40)
[2021-02-27] MEDS: ZINC SULFATE 220 MG CAP PO SCH (08:40)
[2021-02-27] MEDS: POTASSIUM CL SA 10 MEQ TAB PO SCH (08:40)
[2021-02-27] MEDS: PANTOPRAZOLE 40MG TABLET PO SCH (08:40)
[2021-02-27] MEDS: FERROUS SULFATE 325 MG TAB PO SCH (08:40)
[2021-02-27] MEDS: DOCUSATE NA 100 MG CAP PO SCH (08:40)
[2021-02-27] MEDS: LACTOBACILLUS/ACIDOPHILUS TAB PO SCH ×2 (08:41→14:03)
[2021-02-27] MEDS: ASCORBIC ACID 500 MG TABLET PO SCH (08:41)
[2021-02-27] MEDS: ASPIRIN EC 81 MG TAB PO SCH (08:41)
[2021-02-27] MEDS ORDERED: POTASSIUM 25 MEQ EFFERV TAB PO ONE (09:00)
[2021-02-27 09:06] VITALS: O2SAT 97
--- NOTE | 2021-02-27 11:56 | P.PN ---
Subjective Date of Service: 02/27/21 Primary Care Provider: unknown Chief Complaint: chest pain Patient seen examined at bedside, denies N/V/D tolerating antibioitcs well. Review of Systems 10-point ROS is otherwise unremarkable Physical Examination - Vital Signs Temperature: 97.0 F Blood Pressure: 122/60 Pulse: 58 Respirations: 16 Pulse Ox (%): 95 - Studies Laboratory Last Values WBC 6.50 K/uL (4.3-10.9) D 02/19/21 05:18 RBC 2.93 M/uL (3.86-4.86) L 02/19/21 05:18 Hgb 9.5 g/dL (12.0-15.0) L 02/19/21 05:18 Hct 29.3 % (36.0-45.0) L 02/19/21 05:18 MCV 99.9 fL (80-100) 02/19/21 05:18 MCH 32.5 pg (27.0-35.0) 02/19/21 05:18 MCHC 32.6 g/dL (32.0-36.0) 02/19/21 05:18 RDW 17.4 % (12.1-15.2) H 02/19/21 05:18 Plt Count 211 K/uL (152-406) 02/19/21 05:18 MPV 9.4 fL (7.6-11.3) 02/19/21 05:18 Neutrophils % 57.3 % (41.7-73.7) 02/19/21 05:18 Lymphocytes % 31.0 % (15.3-44.8) 02/19/21 05:18 Monocytes % 10.0 % (3.3-12.3) 02/19/21 05:18 Eosinophils % 1.1 % (0-4.4) 02/19/21 05:18 Basophils % 0.6 % (0-1.3) 02/19/21 05:18 Absolute Neutrophils 3.7 K/uL (1.8-8.0) 02/19/21 05:18 Absolute Lymphocytes 2.0 K/uL (0.7-4.9) 02/19/21 05:18 Absolute Monocytes 0.6 K/uL (0.1-1.3) 02/19/21 05:18 Absolute Eosinophils 0.1 K/uL (0-0.5) 02/19/21 05:18 Absolute Basophils 0.0 K/uL (0-0.5) 02/19/21 05:18 PT 11.7 SECONDS (9.5-12.5) 02/17/21 13:40 INR 1.02 02/17/21 13:40 Sodium 138 mmol/L (136-145) 02/19/21 05:18 Potassium 3.6 mmol/L (3.5-5.1) 02/19/21 05:18 Chloride 96 mmol/L (98-107) L 02/19/21 05:18 Carbon Dioxide 36 mmol/L (21-32) H 02/19/21 05:18 BUN 10 mg/dL (7-18) 02/19/21 05:18 Creatinine 0.39 mg/dL (0.55-1.3) L 02/19/21 05:18 Estimated GFR > 90 mL/min (=/>90) 02/19/21 05:18 Glucose 77 mg/dL (74-106) 02/19/21 05:18 POC Glucose 95 mg/dL (65-120) 02/19/21 11:32 Hemoglobin A1c 5.0 % (4.2-6.3) 02/18/21 05:18 Calcium 8.5 mg/dL (8.5-10.1) 02/19/21 05:18 Phosphorus 2.6 mg/dL (2.5-4.9) 02/18/21 05:18 Magnesium 1.9 mg/dL (1.8-2.4) 02/19/21 05:18 Iron 34.0 ug/dL (50-170) L 02/18/21 05:18 TIBC 213 ug/dL (250-460) L 02/18/21 05:18 Transferrin 152 mg/dL (200-360) L 02/18/21 05:18 Transferrin % Sat 16.0 % (20.0-50.0) L 02/18/21 05:18 Ferritin 408.9 ng/mL (8-388) H 02/18/21 05:18 Total Bilirubin 0.5 mg/dL (0.2-1.0) 02/19/21 05:18 Direct Bilirubin 0.2 mg/dL (0-0.2) 02/17/21 13:40 AST 26 U/L (15-37) 02/19/21 05:18 ALT 31 U/L (12-78) 02/19/21 05:18 Alkaline Phosphatase 85 U/L (45-117) 02/19/21 05:18 Rapid Troponin I < 0.02 ng/mL (0.0-0.045) 02/17/21 13:40 Troponin I 0.02 ng/mL (0.0-0.045) 02/18/21 05:18 NT-Pro-B Natriuret Pep 552 pg/mL (<125) H 02/17/21 13:40 Serum Total Protein 5.3 g/dL (6.4-8.2) L 02/19/21 05:18 Albumin 2.3 g/dL (3.4-5.0) L 02/19/21 05:18 Globulin 3.0 g/dL (2.3-3.5) 02/19/21 05:18 Albumin/Globulin Ratio 0.8 (1.1-1.8) L 02/19/21 05:18 Triglycerides 104 mg/dL (<150) 02/18/21 05:18 Cholesterol 154 mg/dL (<200) 02/18/21 05:18 LDL Cholesterol, Calc 57 (<130) 02/18/21 05:18 HDL Cholesterol 76 mg/dL (40-60) H 02/18/21 05:18 Cholesterol/HDL Ratio 2.03 02/18/21 05:18 Vitamin B12 435 pg/mL (193-986) 02/18/21 05:18 Folate >1000 ng/mL RBC (>280) 02/18/21 05:18 TSH 4.330 uIU/mL (0.360-3.740) H 02/18/21 05:18 Free T4 1.14 ng/dL (0.76-1.46) 02/18/21 05:18 Urine Color Yellow (Yellow) 02/18/21 06:53 Urine Appearance Cloudy (Clear) 02/18/21 06:53 Urine pH 7.5 (5.0-7.0) H 02/18/21 06:53 Ur Specific [place] 1.015 (1.005-1.030) 02/18/21 06:53 Glucose (UA)(Auto) Negative (Negative) 02/18/21 06:53 Urine Ketones Negative (Negative) 02/18/21 06:53 Urine Blood Negative (Negative) 02/18/21 06:53 Urine Nitrite Positive (Negative) H 02/18/21 06:53 Urine Bilirubin Negative (Negative) 02/18/21 06:53 Urine Urobilinogen 1.0 mg/dL (0.2-1.0) 02/18/21 06:53 Ur Leukocyte Esterase Trace (Negative) H 02/18/21 06:53 Urine RBC None seen /HPF (NONE SEEN) 02/18/21 06:53 Urine WBC 5-10 /HPF (<5) H 02/18/21 06:53 Ur Squamous Epith Cells <5 /HPF (NONE SEEN) 02/18/21 06:53 Urine Bacteria >50 /HPF (<20) H 02/18/21 06:53 Urine Culture Reflexed Reflexed 02/18/21 06:53 Urine Total Protein Negative (Negative) 02/18/21 06:53 Plasma/Serum Alcohol < 10 mg/dL (<10) 02/18/21 01:00 SARS-CoV-2 Rap RNA(RT-PCR) Negative (NEGATIVE) 02/17/21 20:13 Assessment And Plan - Plan Physical exam: General: Obese HEENT: Atraumatic, Normocephalic Neck: Supple, 2+ carotid pulse no bruit Respiratory: Clear to auscultation bilaterally, Normal air movement Cardiovascular: No edema, Regular rate/rhythm Gastrointestinal: Normal bowel sounds, Non-distended Musculoskeletal: No clubbing, No swelling, No contractures Conclusions/Impression: Antibiotics: vabomere Start: 02/21 Assessment/plan Urinary tract infection Urine culture obtained on 02/18 growing Klebsiella pneumoniae ESBL producing an E coli. Klebsiella producing E ESBL showing intermittent sensitivity to me ropenem with an BRINA of 2. As such, patient started vabomere. Continue to closely monitor renal function, recommend treating for 7 days. Anemia Protein caloric malnutrition: Moderate Diabetes COPD Morbid obesity Hypothyroidism -medical management per primary team with -plan of care discussed Dr. Palacios -thank you for consultation
[2021-02-27 16:51] VITALS: BP 134/63; TEMP 97.1
--- NOTE | 2021-03-06 00:32 | P.DS ---
Discharge Date: 02/27/21 Primary Care Provider: unknown Disposition: ROUTINE DISCHARGE Discharge Condition: GOOD Reason for Admission: chest pain Brief History of Present Illness: Ms. Baker is a 70 yo F with COPD, HTN, DM, GERD, alcohol use disorder who presents to the ED for 6/10 chest pain and left arm numbness that began this afternoon. Pain is worse with movement. Initial troponin and EKG without acute findings. Patient is trying to leave AMA but is too weak to leave the facility. Patient refuses to answer questions about why she is here. came to picker box operator the patient, but they were unable to lift her into the car, so the drove off. Will admit patient for observation. Hospital Course: Patient has been treated with antibiotics in the are arranged as an outpatient. At this time, patient is stable for discharge. Patient does not want to be in the hospital any longer. Will transport her by ambulance. Vital Signs/Physical Exam: Temp Pulse Resp BP Pulse Ox 97.1 F 76 18 134/63 94 02/27/21 16:00 02/27/21 17:47 02/27/21 16:00 02/27/21 17:47 02/27/21 16:00 General: Alert, In no apparent distress, Oriented x3 Laboratory Data at Discharge: WBC 6.20 K/uL (4.3-10.9) D 02/27/21 06:20 Hgb 9.6 g/dL (12.0-15.0) L 02/27/21 06:20 Hct 30.1 % (36.0-45.0) L 02/27/21 06:20 Plt Count 197 K/uL (152-406) 02/27/21 06:20 PT 11.7 SECONDS (9.5-12.5) 02/17/21 13:40 INR 1.02 02/17/21 13:40 Sodium 139 mmol/L (136-145) 02/27/21 06:20 Potassium 3.6 mmol/L (3.5-5.1) 02/27/21 06:20 BUN 18 mg/dL (7-18) 02/27/21 06:20 Creatinine 0.35 mg/dL (0.55-1.3) L 02/27/21 06:20 Glucose 87 mg/dL (74-106) 02/27/21 06:20 Phosphorus 2.6 mg/dL (2.5-4.9) 02/27/21 06:20 Magnesium 2.4 mg/dL (1.8-2.4) D 02/27/21 06:20 Total Bilirubin 0.4 mg/dL (0.2-1.0) 02/22/21 03:50 AST 21 U/L (15-37) 02/22/21 03:50 ALT 29 U/L (12-78) 02/22/21 03:50 Alkaline Phosphatase 102 U/L (45-117) 02/22/21 03:50 Troponin I 0.02 ng/mL (0.0-0.045) 02/18/21 05:18 Triglycerides 104 mg/dL (<150) 02/18/21 05:18 Cholesterol 154 mg/dL (<200) 02/18/21 05:18 HDL Cholesterol 76 mg/dL (40-60) H 02/18/21 05:18 Cholesterol/HDL Ratio 2.03 02/18/21 05:18 Home Medications: Acetaminophen [Tylenol] 2 tab PO Q6H PRN 02/18/21 Acetaminophen-Codeine Tablet 300-30 1 tab PO Q6HP PRN 02/18/21 [place] Packet 1 packet PO BID 02/18/21 Ascorbic Acid 500 mg PO BID 02/18/21 Duloxetine HCl 30 mg PO DAILY 02/18/21 Ergocalciferol (Vitamin D2) [Vitamin D 50,000 Unit Cap] 50,000 unit PO SEECOM 02/18/21 Folic Acid 1 mg PO DAILY 02/18/21 Furosemide [Lasix] 40 mg PO DAILY 02/18/21 Glucagon [Gvoke Pfs 1-Pack Syringe] 1 mg IM Q6HP PRN 02/18/21 Insulin Aspart [Novolog Flexpen] See Protocol SQ BID 02/18/21 Ipratropium/Albuterol Sulfate [Iprat-Albut 0.5-3(2.5) mg/3 ml] 3 ml IH Q6H PRN 02/18/21 Melatonin 5 mg PO BEDTIME 02/18/21 Multivitamins-Minerals 1 tab PO DAILY 02/18/21 Omeprazole Magnesium [Prilosec Otc] 20 mg PO DAILY 02/18/21 Potassium Chloride 2 tab PO DAILY 02/18/21 Prednisone [Sterapred Ds] 10 mg PO DAILY 02/18/21 Promethazine HCl 25 mg PO Q6H PRN 02/18/21 Protein Liquid 30 ml PO BID 02/18/21 Thiamine HCl 100 mg PO DAILY 02/18/21 Zinc Sulfate [Zinc Sulfate*] 220 mg PO DAILY 02/18/21 Atorvastatin Calcium [Lipitor] 40 mg PO BEDTIME #30 tab 02/27/21 Docusate [Colace Cap*] 100 mg PO DAILY #30 cap 02/27/21 Hydrocodone 5/APAP 325 [[place] 5/325*] 1 tab PO Q6H PRN #30 tab 02/27/21 Spencer [Spencer*] 1 pkt PO BID #60 powd.pack 02/27/21 Metoprolol Tartrate [Lopressor*] 12.5 mg PO BID 6AM 6PM #60 tab 02/27/21 New Medications: Docusate [Colace Cap*] 100 mg PO DAILY #30 cap Spencer [Spencer*] 1 pkt PO BID #60 powd.pack Atorvastatin Calcium [Lipitor] 40 mg PO BEDTIME #30 tab Metoprolol Tartrate [Lopressor*] 12.5 mg PO BID 6AM 6PM #60 tab Hydrocodone 5/APAP 325 [[place] 5/325*] 1 tab PO Q6H PRN #30 tab PRN Reason: Pain Scale 8-10 (Severe) Physician Discharge Instructions: OK TO DC IV AND DC HOME FOLLOW-UP WITH PRIMARY CARE PROVIDER IN 1-2 WEEKS FOLLOW-UP WITH CARDIOLOGY IN 1-2 WEEKS RETURN TO THE ER IF symptoms are worsening CALL or TEXT DR. BENNETT AT [phone] IF ANY QUESTIONS REGARDING HOSPITAL STAY. PLEASE CALL THE FLOOR AT [phone] IF ANY MEDICATION OR NURSING QUESTIONS. Diet: Low sodium Activity: Fall precautions Followup: Nick Gonsales MD [Primary Care Provider] - (call to schedule appointment) Time spent managing pt's care (in minutes): 35
== END 2021-02-27 18:41 | disposition home or self-care (01) | DRG 689 ==
LOC: ER 13:23 → ERHOLD 18:39 → 2ND 22:46 → OBSVTOIN 02-19 15:06
PROVIDERS: ADMIT Internal Medicine; ATTEND Hospitalist
DX: N30.01 Acute cystitis with hematuria (principal); G93.41 Metabolic encephalopathy; N17.9 Acute kidney failure, unspecified; Z68.41 Body mass index [BMI] 40.0-44.9, adult; E66.2 Morbid (severe) obesity with alveolar hypoventilation; E44.0 Moderate protein-calorie malnutrition; L89.152 Pressure ulcer of sacral region, stage 2; E03.9 Hypothyroidism, unspecified; J44.9 Chronic obstructive pulmonary disease, unspecified; E87.70 Fluid overload, unspecified; I10 Essential (primary) hypertension; D63.8 Anemia in other chronic diseases classified elsewhere; E11.40 Type 2 diabetes mellitus with diabetic neuropathy, unspecified; D50.9 Iron deficiency anemia, unspecified; E78.5 Hyperlipidemia, unspecified; K21.9 Gastro-esophageal reflux disease without esophagitis; F17.200 Nicotine dependence, unspecified, uncomplicated; B96.20 Unspecified Escherichia coli [E. coli] as the cause of diseases classified elsewhere; B96.1 Klebsiella pneumoniae [K. pneumoniae] as the cause of diseases classified elsewhere; R07.89 Other chest pain; R06.89 Other abnormalities of breathing; R53.1 Weakness; Z79.890 Hormone replacement therapy; Z79.52 Long term (current) use of systemic steroids; Z79.899 Other long term (current) drug therapy; Z79.4 Long term (current) use of insulin; Z79.82 Long term (current) use of aspirin; Z56.0 Unemployment, unspecified; Z20.822 Contact with and (suspected) exposure to COVID-19; Z23 Encounter for immunization
CPT/HCPCS: 36415; 36569; 71045; 80048; 80053; 80061; 80076; 80320; 81003; 81015; 82607; 82728; 82747; 82947; 83036; 83540; 83735; 83880; 84100; 84132; 84439; 84443; 84466; 84484; 85025; 85610; 87077; 87086; 87088; 87186; 90471; 90732; 93005; 94640; 94760; 97110; 97161; 97530; 99285; G0378; J1650; J2185; J2270; J2405; J3475; J7512; J7605; Q2035; U0003

== ENCOUNTER 2021-03-07 10:33 | Emergency (ER) | payer OTHER ==
--- OUTSIDE RECORDS SUMMARY | 2021-03-07 10:37 | XMS REPORT | Continuity of Care Document ---
:1950 Author Organization [facility] t Address [address] [place] [address] Care Team Providers Name Role Phone Syed [...] rs active active ity of problems problems [facility] Allergies, Adverse Reactions, Alerts Allergy Allergy Status Severity Reaction(s) Onset Inactive Treating Comm ents Source Name Type Date Date Clinician NO KNOWN Drug Active Univers ALLERGIE Class ity of S [facility] Social History Social Habit Start Date Stop Date Quantity Comments Source History [facility] University o f Alcohol Std [place] [facility] Drinks Branch History [facility] University o f Alcohol Binge [place] [facility] Exposure to Not sure University of SARS-CoV-2 [facility] (event) Branch Tobacco use and 2020-10-14 2020-10-14 Never used Universit y of exposure 00:00:00 00:00:00 [facility] Branch Alcohol intake 2020-10-14 2020-10-14 Lifetime University of 00:00:00 00:00:00 non-drinker [place] [facility] (finding) Branch History SDOH 2020-10-14 2020-10-14 1 University o f Alcohol Frequency 00:00:00 00:00:00 [facility] edical Branch Sex Ass[birth year] At [birth year] Universit y of 00:00:00 00:00:00 [facility] Smoking Status Start Date Stop Date Source Unknown if ever smoked [facility] Never smoker [facility] Medications Ordered Filled Start Stop Current Ordering Indication Dosage Frequency Signature Comments Components Source Medication Medication Date Date Medication? Clinician (SIG) Name Name triamcinolo 2020- No [id number] 40mg Univers ne 10-14 ity of acetonide 17:00: 15:50 [place] (KENALOG) 00 :00 Medical injection Branch 40 mg triamcinolo 2020- No [id number] 40mg Univers ne 10-14 ity of acetonide 17:00: 15:49 [place] (KENALOG) 00 :00 Medical injection Branch 40 mg triamcinolo 2020- No [id number] 40mg 40 mg, Univers ne 10-14 Intramuscu ity of acetonide 17:00: 15:49 [place] 00 :00 1 dose, Medical injection Fri Branch 40 mg 10/14/20 at 1200, Routine triamcinolo 2020- No [id number] 40mg 40 mg, Univers ne 10-14 Intramuscu ity of acetonide 17:00: 15:50 [place] 00 :00 1 dose, Medical injection Fri Branch 40 mg 10/14/20 at 1200, Routine triamcinolo 2020- No [id number] 40mg Univers ne 10-14 ity of acetonide 17:00: 15:50 [place] (KENALOG) 00 :00 Medical injection Branch 40 mg triamcinolo 2020- No [id number] 40mg Univers ne 10-14 ity of acetonide 17:00: 15:49 [place] (KENALOG) 00 :00 Medical injection Branch 40 mg triamcinolo 2020- No [id number] 40mg 40 mg, Univers ne 10-14 Intramuscu ity of acetonide 17:00: 15:49 [place] ([place] 00 :00 1 dose, Medical injection Fri Branch 40 mg 10/14/20 at 1200, Routine triamcinolo 2020-0 2020- No [id number] 40mg 40 mg, Univers ne 10-14 Intramuscu ity of acetonide 17:00: 15:50 [place]CE[place] ([place] 00 :00 1 dose, Medical injection Fri Branch 40 mg 10/14/20 at 1200, Routine albuterol Yes Univers 2.5 mg /3 7-29 ity of mL (0.083 00:00: [place] %) 00 Medical nebulizer Branch solution TRELEGY Yes Univers ELLIPTA 7-29 ity of 100-62.5-25 00:00: [place] mcg DsDv 00 Medical Branch gabapentin Yes Univers 300 mg 7-29 ity of capsule 00:00: [place] 00 Medical Branch ipratropium Yes Univer s 0.02 % 7-29 ity of nebulizer 00:00: [place] solution 00 Medical Branch albuterol Yes Univers 2.5 mg /3 7-29 ity of mL (0.083 00:00: [place] %) 00 Medical nebulizer Branch solution TRELEGY Yes Univers ELLIPTA 7-29 ity of 100-62.5-25 00:00: [place] mcg DsDv Medical Branch gabapentin Yes Univers 300 mg 7-29 ity of capsule 00:00: [place] 00 Medical Branch ipratropium 0 Yes Univer s 0.02 % 7-29 ity of nebulizer 00:00: [place] solution 00 Medical Branch albuterol Yes Univers 2.5 mg /3 7-29 ity of mL (0.083 00:00: [place] %) 00 Medical nebulizer Branch solution TRELEGY Yes Univers ELLIPTA 7-29 ity of 100-62.5-25 00:00: [place] mcg DsDv Medical Branch gabapentin Yes Univers 300 mg 7-29 ity of capsule 00:00: [place] 00 Medical Branch ipratropium Yes Univer s 0.02 % 7-29 ity [...] 00:00: [place] solution 00 Medical Branch fluticasone 0 Yes Univer s propionate 6-23 ity of 50 00:00: [place] mcg/actuati 00 Medical on nasal Branch spray fluticasone 0 Yes Univer s propionate 6-23 ity of 50 00:00: [place] mcg/actuati 00 Medical on nasal Branch spray fluticasone 0 Yes Univer s propionate 6-23 ity of 50 00:00: [place] mcg/actuati 00 Medical on nasal Branch spray fluticasone 2020-0 Yes Univer s propionate 6-23 ity of 50 00:00: [place] mcg/actuati 00 Medical on nasal Branch spray fluticasone 2020-0 Yes Univer s propionate 6-23 ity of 50 00:00: [place] mcg/actuati 00 Medical on nasal Branch spray levothyroxi 2020-0 Yes Univer s ne 50 mcg 6-07 ity of tablet 00:00: [place] 00 Medical Branch DULoxetine 2020-0 Yes Univers 60 mg 6-07 ity of capsule 00:00: [place] 00 Medical Branch atorvastati 2020-0 Yes Univer s n 40 mg 6-07 ity of tablet 00:00: [place] 00 Medical Branch levothyroxi 202-0 Yes Univer s ne 50 mcg 6-07 ity of tablet 00:00: [place] 00 Medical Branch DULoxetine 2021-0 Yes Univers 60 mg 6-07 ity of capsule 00:00: [place] [facility] atorvastati 2020-0 Yes Univer s n 40 mg 6-07 ity of tablet 00:00: [place] [facility] levothyroxi 2020-0 Yes Univer s ne 50 mcg 6-07 ity of tablet 00:00: [place] [facility] DULoxetine 2020-0 Yes Univers 60 mg 6-07 ity of capsule 00:00: [place] [facility] atorvastati 2020-0 Yes Univer s n 40 mg 6-07 ity of tablet 00:00: [place] [facility] levothyroxi 2020-0 Yes Univer s ne 50 mcg 6-07 ity of tablet 00:00: [place] [address] Medical Branch DULoxetine 2020-0 Yes Univers 60 mg 6-07 ity of capsule 00:00: [place] [facility] atorvastati 2020-0 Yes Univer s n 40 mg 6-07 ity of tablet 00:00: [place] [address] Medical Branch levothyroxi 2020-0 Yes Univer s ne 50 mcg 6-07 ity of tablet 00:00: [place] [facility] DULoxetine 2020-0 Yes Univers 60 mg 6-07 ity of capsule 00:00: [place] [facility] atorvastati 2020-0 Yes Univer s n 40 mg 6-07 ity of tablet 00:00: [place] [facility] lisinopriL 2021-0 Yes Univers 20 mg 6-05 ity of tablet 00:00: [place] 00 Medical Branch potassium 2021-0 Yes Univers chloride 10 6-05 ity of mEq CR 00:00: [place] tablet 00 Medical Branch lisinopriL 2021-0 Yes Univers 20 mg 6-05 ity of tablet 00:00: [place] [facility] potassium 2021-0 Yes Univers chloride 10 6-05 ity of mEq CR 00:00: [place] tablet 00 Medical Branch lisinopriL 2021-0 Yes Univers 20 mg 6-05 ity of tablet 00:00: [place] [address] Medical Branch potassium 2021-0 Yes Univers chloride 10 6-05 ity of mEq CR 00:00: [place] tablet 00 Medical Branch lisinopriL 2021-0 Yes Univers 20 mg 6-05 ity of tablet 00:00: [place] 00 [facility] potassium 2020- Yes Univers chloride 10 6-05 ity of mEq CR 00:00: [place] tablet 00 [facility] lisinopriL Yes Univers 20 mg 6-05 ity of tablet 00:00: [place] 00 [facility] potassium 2020-0 Yes Univers chloride 10 6-05 ity of mEq CR 00:00: [place] tablet 00 [facility] Macrobid Macrobid 2020- No Na Barrera [address] [facility] 08-05 [facility] food [facility] Vital Signs Vital Name Observation Time Observation Value Comments Source Body height 2020-10-14 15:20:00 157.5 cm [facility] Body weight 2020-10-14 15:20:00 106.595 kg [facility] BMI 2020-10-14 15:20:00 42.98 kg/m2 [facility] Procedures Procedure Date / Time Performed Performing Clinician Faiasl e XR KNEE 3 VW BILATERAL 2020-10-14 15:09:03 Shonda Rader [facility] ASSIGNMENT OF BENEFITS 2020-10-14 14:47:40 Doctor Unassigned, No [facility] Encounters Start End Encounter Admission Attending Care Care Encounter Source Date/Time Date/Time Type Type Clinicians Facility Department ID 2020-10-14 2020-10-14 [facility] [id number] Univers 09:51:55 23:59:00 Encounter Shonda Lynch Nolan [id number] ity of [place] [id number] [facility] [id number] [facility] hunter 807 Branch 2020-10-14 2020-10-14 [facility] [id number] Univers 10:14:41 11:07:28 Visit [facility] [id number] it y of Surgical [id number] Yaya as Specialti [id number] [place] dical es 198 [facility] 2020-10-14 2020-10-14 Outpatient R [facility] [id number] Univers 00:00:00 00:00:00 SHONDA [id number] [facility] [place] [facility] 2020-10-14 2020-10-14 Outpatient Sendy [facility] [id number] Univers 00:00:00 00:00:00 SHONDA [facility] [place] [facility] 2020-10-14 2020-10-14 Orders Doctor VASYL [id number] Univers 00:00:00 00:00:00 Only Unassigned, NIKOLE [id number] ity [facility] [id number] Yaya as [id number] [address] 2020-10-07 2020-10-07 Outpatient Sendy [facility] [id number] Univers 08:30:00 08:30:00 EL[facility] [place] [facility] 2020-10-03 2020-10-03 [facility] [id number] [facility] 00[facility]00 [facility] 2020-09-27 2020-09-27 [facility] [id number] [facility] 00[facility]00[facility]00 00[facility]00[facility] 2020-09-27 2020-09-27 [facility] [id number] [facility] 00[facility]00[facility]00 00[facility]00[facility] 2020-08-24 2020-08-24 [facility] [id number] [facility] 00[facility]00[facility]00 00[facility]00[facility] 2020-08-24 2020-08-24 [facility] [id number] [facility] 2020-03-30 2020-03-30 [facility] [id number] [facility] 00[facility]00[facility]00 00[facility]00[facility] 2020-02-08 2020-02-08 [facility] [id number] [facility] 2019-12-28 2019-12-28 Outpatient [facility] [id number] [facility] 2019-12-21 2019-12-21 Outpatient [facility] [id number] [facility] 2019-12-21 2019-12-21 Out[facility] [id number] [facility] 2019-12-14 2019-12-14 Out[facility] [id number] [facility] 2019-08-27 2019-08-27 [facility] [id number] [facility] 08:35:00 08:35:[address] [facility] - Drive [facility] Medicine l Medicine Outpati ent Clinics 2019-08-10 2019-08-10 [facility] [id number] [address] 14:58:00 14:58:00 [facility] [employer] [facility] - Drive [facility] Medicine l Medicine Outpati ent Clinics 2019-08-07 2019-08-07 [facility] [id number] 15:31:00 15:31:00 t [employer] [facility] - Drive [facility] Medicine l Medicine Outpati ent Clinics 2019-08-06 2019-08-06 [facility] [id number] 08:00:00 08:00:00 [facility] [employer] [facility] - Drive [facility] Medicine l Medicine Outpati ent Clinics 2019-07-06 2019-07-06 [facility] [id number] [address] 16:34:00 16:34:00 [facility] [employer] [facility] Medicine l Medicine Outpati ent Clinics 2019-06-11 2019-06-11 [facility] [id number] 11:14:00 11:14:00 [facility] [employer] [facility] Medicine l Medicine Outpati ent Clinics 2019-05-28 2019-05-28 [facility] [id number] 16:13:00 16:13:[address] Luke s - Drive [facility] Medicine l Medicine Outpati ent Clinics 2019-03-19 2019-03-19 [facility] [id number] 16:53:00 16:53:[address] Luke s - Drive [facility] l Medicine Outpati ent Clinics 2019-03-17 2019-03-17 [facility] [id number] 08:02:00 08:02:[address] Luke s - Drive [facility] Medicine l Medicine Outpati ent Clinics 2019-03-11 2019-03-11 [facility] [id number] 15:56:00 15:56:[address] Luke s - Drive [facility] l Medicine Outpati ent Clinics 2019-03-11 2019-03-11 [facility] [id number] 08:53:00 08:53:[address] Luke s - Drive [facility] l Medicine Outpati ent Clinics 2019-03-10 2019-03-10 [facility] [id number] 13:40:00 13:40:[address] Luke s - Drive [facility] l Medicine Outpati ent Clinics 2018-10-28 2018-10-28 [facility] [id number] 11:44:00 11:44:[address] Luke s - Drive [facility] l Medicine Outpati ent Clinics 2018-10-09 2018-10-09 [facility] [id number] 09:34:00 09:34:[address] Luke s - Drive [facility] l Medicine Outpati ent Clinics 2018-09-01 2018-09-01 [facility] [id number] 08:40:00 08:40:[address] Luke s - Drive [facility] l Medicine Outpati ent Clinics 2018-08-29 2018-08-29 [facility] [id number] 13:39:00 13:39:[address] Luke s - Drive [facility] l Medicine Outpati ent Clinics 2018-06-13 2018-06-13 [facility] [id number] 14:41:00 14:41:00 [facility] [employer] [facility] - [facility] Medicine Outpati ent Clinics 2018-06-11 2018-06-11 [facility] [id number] 09:59:00 09:59:00 t [place] - Drive [facility] Medicine Outpati ent Clinics 2018-06-03 2018-06-03 [facility] [id number] 11:00:00 11:00:00 [facility] [employer] [facility] - [facility] l Medicine Outpati ent Clinics 2018-05-12 2018-05-12 [facility] [id number] 09:43:00 09:43:00 t [place] - Drive [facility] Medicine Outpati ent Clinics 2018-04-17 2018-04-17 [facility] [id number] 13:45:00 13:45:00 t Specialty/U Mikaela kes - Specialty rology Memori a /Urology Clinic l Clinic Outpati ent Clinics 2018-04-03 2018-04-03 [facility] [id number] [facility] 08:31:00 08:31:00 t Force [place] [facility] - [facility] l Medicine Outpati ent Clinics 2018-03-28 2018-03-28 [facility] [id number] 13:10:00 13:10:00 t Force [place] s - Drive [facility] Medicine Outpati ent Clinics 2018-03-28 2018-03-28 [facility] [id number] 10:52:00 10:52:00 t Specialty/U Mikaela kes - Specialty rology Memori a /Urology Clinic l Clinic Outpati ent Clinics 2018-03-26 2018-03-26 [facility] [id number] 16:01:00 16:01:00 t Force [place] s - Drive [facility] Medicine Outpati ent Clinics 2018-03-25 2018-03-25 [facility] [id number] 08:15:00 08:15:00 t [facility] Medicine Outthe medical center ent Clinics 2017-12-16 2017-12-16 Outpatient [facility] [id number] [facility] 00:[facility] 00:[facility]:00 [facility] ent [facility] Results Test Description Test Time Test Comments Results Result Sourc e Comments XR KNEE 3 VW 2020-10-02 1. University o f BILATERAL 3 ?Osteoarthritis. [facility] 17:10:44 RL: [id number] Branch HISTORY: ?bilateral knee [...]
--- NOTE | 2021-03-07 11:57 | RAD REPORT ---
EXAM DESCRIPTION: Sergio Single View03/07/2021 11:49 am CLINICAL HISTORY: Shortness of breath COMPARISON: February 21, 2021 FINDINGS: The lungs appear clear of acute infiltrate. The heart is normal size IMPRESSION: No acute abnormalities displayed
[2021-03-07 13:10] LABS: Absolute Lymphocytes (CBC) 1.8 K/uL (0.7-4.9); Hematocrit 33.5 % (36.0-45.0); Lymphocytes % 29.4 % (15.3-44.8); RBC Red Blood Cell Count 3.36 M/uL (3.86-4.86)
[2021-03-07 13:12] LABS: Urine Blood Trace-intact (Negative); Urine Glucose Negative (Negative); Urine Protein 1+ (Negative); Urine Specific Gravity 1.025 (1.005-1.030)
[2021-03-07 13:33] LABS: BUN Blood Urea Nitrogen 10 mg/dL (7-18); Bicarbonate 32 mmol/L (21-32); Glucose Level 85 mg/dL (74-106); NT PRO-BNP 760 pg/mL (<125); Potassium 3.4 mmol/L (3.5-5.1); Sodium Level 142 mmol/L (136-145)
[2021-03-07 13:52] LABS: Urine Bacteria <20 /HPF (<20); Urine RBC <5 /HPF (NONE SEEN)
[2021-03-07 13:53] LABS: Urine Mucus 2+ /HPF (NONE SEEN)
--- NOTE | 2021-03-07 14:41 | EDPHYS ---
Physician Documentation [facility] Name: Earnest Baker Age: 70 yrs Sex: Female : 1950 Arrival Date: 03/07/2021 Time: 10:35 Bed 4 Private MD: ED Physician Brad Galvez HPI: 03/07 10:40 This 70 yrs old Female presents to ER via Unassigned with complaints of Trouble rn urinating. 10:40 The patient presents with urinary symptoms, dysuria, frequency. Onset: The rn symptoms/episode began/occurred yesterday. Modifying factors: The symptoms are alleviated by nothing, the symptoms are aggravated by nothing. Associated signs and symptoms: Pertinent positives: dysuria, urinary frequency, Pertinent negatives: fever, hematuria, vomiting. Severity of symptoms: At their worst the symptoms were moderate, in the emergency department the symptoms are unchanged. The patient has experienced a previous episode. The patient has been recently seen by a physician:. Patient reports difficulty urinating since last night, reports dysuria and increased frequency, states feels like decreased output total. EMS states her bed was soaked with urine. Patient reports drinks water and then has to urinate immediately. No fever. No trauma. Reports has had kidney failure before and wanted to make sure her kidneys are okay.. Historical: - Allergies: 10:51 No Known Allergies; bp - Home Meds: 10:51 duloxetine 30 mg Oral cpDR 1 cap once daily [Active]; ergocalciferol (vitamin D2) 1,250 bp mcg (50,000 unit) Oral cap every Saturday [Active]; folic acid 1 mg Oral tab 1 tab once daily [Active]; Lasix 40 mg Oral tab 1 tab once daily [Active]; lisinopril 10 mg Oral tab [Active]; melatonin 5 mg Oral tab nightly [Active]; multivitamin with minerals Oral cap daily [Active]; potassium chloride 20 mEq Oral TbER 1 tab once daily [Active]; thiamine HCl (vitamin B1) 100 mg Oral tab daily [Active]; Prilosec 20 mg Oral cpDR 1 cap 2 times per day [Active]; zinc sulfate 220 mg Oral cap daily [Active]; prednisone 10 mg Oral tab 1 tab once daily [Active]; - PMHx: 10:51 COPD; diabetes mellitus; Gastroesophageal reflux disease; Hypertension; Hypothyroidism; bp - Immunization history:: Adult Immunizations up to date. - Social history:: Smoking status: Patient denies any tobacco usage or history of. - Family history:: not pertinent. - Hospitalizations: : The patient was recently seen at [facility]. ROS: 10:40 Constitutional: Negative for fever, chills, and weight loss, Eyes: Negative for injury, rn pain, redness, and discharge, Neck: Negative for injury, pain, and swelling, Cardiovascular: Negative for chest pain, palpitations, and edema, Respiratory: Negative for shortness of breath, cough, wheezing, and pleuritic chest pain, Abdomen/GI: Negative for abdominal pain, nausea, vomiting, diarrhea, and constipation, Back: Negative for injury and pain, : Negative for injury, bleeding, discharge, and swelling, MS/Extremity: Negative for injury and deformity, Skin: Negative for injury, rash, and discoloration, Neuro: Negative for headache, numbness, tingling, and seizure. Exam: 10:40 Constitutional: Overweight female, no acute distress, mild tachypnea Head/Face: rn Normocephalic, atraumatic. Eyes: Periorbital areas with no swelling, redness, or edema. ENT: Moist mucous membranes Cardiovascular: Regular rate and rhythm. No pulse deficits. Respiratory: Mild tachypnea, no retractions, speaking full sentences Abdomen/GI: Soft, non-tender Skin: Warm, dry MS/ Extremity: Pulses equal, no cyanosis. Neurovascular intact. Full, normal range of motion. Equal circumference. No edema Neuro: Awake and alert, GCS 15 Vital Signs: 10:49 Pulse 80; Resp 17; Temp 98; Pulse Ox 98% ; bp 11:30 BP 160 / 87; Pulse 82; Resp 16; Pulse Ox 93% ; bp 12:30 BP 155 / 93; Pulse 77; Resp 16; Pulse Ox 96% ; bp 13:30 BP 157 / 79; Pulse 80; Resp 19; Pulse Ox 96% ; bp MDM: 10:35 Patient medically screened. rn 14:37 Differential diagnosis: urinary tract infection, dehydration, COPD, CHF. Data reviewed: rn vital signs, nurses notes, lab test result(s), radiologic studies, plain films, and as a result, I will discharge patient. Counseling: I had a detailed discussion with the patient and/or guardian regarding: the historical points, exam findings, and any diagnostic results supporting the discharge/admit diagnosis, lab results, radiology results, the need for outpatient follow up, to return to the emergency department if symptoms worsen or persist or if there are any questions or concerns that arise at home. Response to treatment: the patient's symptoms have mildly improved after treatment, and as a result, I will discharge patient. Special discussion: I discussed with the patient/guardian in detail that at this point there is no indication for admission to the hospital. It is understood, however, that if the symptoms persist or worsen the patient needs to return immediately for re-evaluation. ED course: No acute findings to suggest UTI or pyelonephritis. . 03/07 10:37 Order name: CBC with Diff rn 03/07 10:37 Order name: Basic Metabolic Panel; Complete Time: 14:36 rn 03/07 10:37 Order name: Urine Culture rn 03/07 10:37 Order name: Urine Microscopic Only; Complete Time: 14:36 rn 03/07 10:37 Order name: Blood Culture Adult (2) rn 03/07 10:37 Order name: Procalcitonin; Complete Time: 14:36 rn 03/07 10:37 Order name: IV Start; Complete Time: 13:05 rn 03/07 10:37 Order name: Urine Dipstick-Ancillary (obtain specimen); Complete Time: 13:30 rn 03/07 10:37 Order name: BNP; Complete Time: 14:36 rn 03/07 10:37 Order name: XRAY Chest (1 view); Complete Time: 12:04 rn 03/07 10:38 Order name: CBC with Automated Diff; Complete Time: 14:36 EDMS 03/07 13:13 Order name: Urine Dipstick-Ancillary; Complete Time: 14:36 EDMS Administered Medications: No medications were administered Disposition Summary: 03/07/21 14:40 Discharge Ordered Location: Home rn Problem: new rn Symptoms: have improved rn Condition: Stable rn Diagnosis - Person with feared health complaint in whom no diagnosis is made rn Followup: rn - With: Private Physician - When: As needed - Reason: Recheck today's complaints, Re-evaluation by your physician Discharge Instructions: - Discharge Summary Sheet rn - Chronic Obstructive Pulmonary Disease rn Forms: - Medication Reconciliation Form rn - Thank You Letter rn - Antibiotic director international - Prescription Opioid Use rn - SBAR form bp Signatures: Dispatcher [employer] Brad Lucero MD MD rn Peltier, Brian, RN RN bp
--- NOTE | 2021-03-07 14:41 | ER ---
Nurse's Notes [facility] Name: Earnest Baker Age: 70 yrs Sex: Female : 1950 Arrival Date: 03/07/2021 Time: 10:35 Bed 4 Private MD: Diagnosis: Person with feared health complaint in whom no diagnosis is made Presentation: 03/07 10:49 Chief complaint: EMS states: URINARY PROBLEMS. Coronavirus screen: At this time, the bp client does not indicate any symptoms associated with coronavirus-19. Ebola Screen: No symptoms or risks identified at this time. Initial Sepsis Screen: Does the patient meet any 2 criteria? No. Patient's initial sepsis screen is negative. Does the patient have a suspected source of infection? No. Patient's initial sepsis screen is negative. Risk Assessment: Do you want to hurt yourself or someone else? Patient reports no desire to harm self or others. Onset of symptoms was March 07, 2021. 10:49 Method Of Arrival: EMS: [facility] bp 10:49 Acuity: AMANDA 3 bp Triage Assessment: 10:51 General: Appears distressed, uncomfortable, obese, Behavior is cooperative, appropriate bp for age, anxious. Pain: Denies pain. EENT: No deficits noted. Neuro: Level of Consciousness is awake, alert, obeys commands, Oriented to Appropriate for age. Cardiovascular: No deficits noted. Respiratory: No deficits noted. GI: No signs and/or symptoms were reported involving the gastrointestinal system. : Reports inability to void. Derm: No deficits noted. Musculoskeletal: No deficits noted. Historical: - Allergies: 10:51 No Known Allergies; bp - Home Meds: 10:51 duloxetine 30 mg Oral cpDR 1 cap once daily [Active]; ergocalciferol (vitamin D2) 1,250 bp mcg (50,000 unit) Oral cap every Saturday [Active]; folic acid 1 mg Oral tab 1 tab once daily [Active]; Lasix 40 mg Oral tab 1 tab once daily [Active]; lisinopril 10 mg Oral tab [Active]; melatonin 5 mg Oral tab nightly [Active]; multivitamin with minerals Oral cap daily [Active]; potassium chloride 20 mEq Oral TbER 1 tab once daily [Active]; thiamine HCl (vitamin B1) 100 mg Oral tab daily [Active]; Prilosec 20 mg Oral cpDR 1 cap 2 times per day [Active]; zinc sulfate 220 mg Oral cap daily [Active]; prednisone 10 mg Oral tab 1 tab once daily [Active]; - PMHx: 10:51 COPD; diabetes mellitus; Gastroesophageal reflux disease; Hypertension; Hypothyroidism; bp - Immunization history:: Adult Immunizations up to date. - Social history:: Smoking status: Patient denies any tobacco usage or history of. - Family history:: not pertinent. - Hospitalizations: : The patient was recently seen at [facility]. Screenin:19 Abuse screen: Denies threats or abuse. Nutritional screening: No deficits noted. [facility] Tuberculosis screening: No symptoms or risk factors identified. Fall Risk Fall in past 12 months (25 points). Ambulatory Aid- Furniture (30 pts.). Assessment: 11:30 Reassessment: SEE TRIAGE NOTE. bp 13:30 Reassessment: No changes from previously documented assessment. Patient and/or family bp updated on plan of care and expected duration. Pain level reassessed. 16:00 Reassessment: PT D/C HOME VIA EMS. bp Vital Signs: 10:49 Pulse 80; Resp 17; Temp 98; Pulse Ox 98% ; bp 11:30 BP 160 / 87; Pulse 82; Resp 16; Pulse Ox 93% ; bp 12:30 BP 155 / 93; Pulse 77; Resp 16; Pulse Ox 96% ; bp 13:30 BP 157 / 79; Pulse 80; Resp 19; Pulse Ox 96% ; bp ED Course: 10:35 Patient arrived in ED. rn 10:35 Brad Galvez MD is Attending Physician. rn 10:49 Dylan Chambers, MANAV is Primary Nurse. bp 10:50 Triage completed. bp 10:51 Arm band placed on. bp 11:49 XRAY Chest (1 view) In Process Unspecified. EDMS 12:55 First set of blood cultures drawn by nv. Inserted saline lock: 22 gauge in right dh3 antecubital area, using aseptic technique. Blood collected. 12:58 Initial lab(s) drawn, by nv, sent to lab. Second set of blood cultures drawn by nv. 3 13:10 Straight cath inserted, using sterile technique, 14 Fr. Specimen obtained. [facility] 13:19 Bed in low position. Call light in reach. Side rails up X 1. jh6 13:30 CBC with Diff Sent. bp Administered Medications: No medications were administered Outcome: 14:40 Discharge ordered by . rn 16:36 Patient left the ED. [facility] Signatures: Dispatcher [employer] EDMS Brad Galvez MD MD rn Herrera, Re 3 Dylan Chambers RN RN Beau Gill RN RN [facility] Nilda Vega RN RN 6 Corrections: (The following items were deleted from the chart) 13:04 12:58 Initial lab(s) drawn, by nv, sent to lab. Second set of blood cultures drawn [place] [id number]
[2021-03-07 16:43] VITALS: TEMP 98
[2021-03-07 16:46] VITALS: O2SAT 96
[2021-03-07 16:48] VITALS: BP 157/79
== END 2021-03-07 16:36 | disposition home or self-care (01) ==
LOC: ER 10:33
DX: Z71.1 Person with feared health complaint in whom no diagnosis is made (principal); I10 Essential (primary) hypertension; E11.9 Type 2 diabetes mellitus without complications; J44.9 Chronic obstructive pulmonary disease, unspecified
CPT/HCPCS: 36415; 51702; 71045; 80048; 81003; 81015; 83880; 84145; 85025; 87040; 87086; 87088; 99284

== ENCOUNTER 2021-05-04 15:55 | Inpatient (IN) | payer OTHER ==
--- OUTSIDE RECORDS SUMMARY | 2021-05-04 15:58 | XMS REPORT | Continuity of Care Document ---
:1950 Author Organization [facility] t Address [address] [place] [address] Care Team Providers Name Role Phone Andrse Barrera Attending Clinician Unavailable Syed Stout Attending Clinician Syed RADER Attending Clinician Unavailable Doctor Unassigned, Name Attending Clinician Unavailable Andres DUMONT Attending Clinician Unavailable Payers Payer Name Policy Type Policy Number Effective Date Expiration Date S ource Problems Condition Condition Condition Status Onset Resolution Last Treating Co mments Source Name Details Category Date Date Treatment Clinician Date No known No known Disease Unive rs active active ity of problems problems [facility] Allergies, Adverse Reactions, Alerts Allergy Allergy Status Severity Reaction(s) Onset Inactive Treating Comm ents Source Name Type Date Date Clinician NO KNOWN Drug Active Univers ALLERGIE Class ity of S [facility] Social History Social Habit Start Date Stop Date Quantity Comments Source History SDTN University o f Alcohol Std [place] [facility] Branch History SDTN University o f Alcohol Binge [place] [facility] Exposure to Not sure University of SARS-CoV-2 [facility] (event) Branch Tobacco use and 2020-10-14 2020-10-14 Never used Universit y of exposure 00:00:00 00:00:00 [facility] Alcohol intake 2020-10-14 2020-10-14 Lifetime University of 00:00:00 00:00:00 non-drinker [facility] (finding) Branch History SDOH 2020-10-14 2020-10-14 1 University o f Alcohol Frequency 00:00:00 00:00:00 [facility] Sex Assigned At [birth year] Universit y of 00:00:00 00:00:00 [facility] Smoking Status Start Date Stop Date Source Unknown if ever smoked [facility] Never smoker [facility] Medications Ordered Filled Start Stop Current Ordering Indication Dosage Frequency Signature Comments Components Source Medication Medication Date Date Medication? Clinician (SIG) Name Name triamcinolo 2020- No [id number] 40mg Univers ne 10-14 ity of acetonide 17:00: 15:50 [place] (KENALOG) 00 :00 Medical injection Branch 40 mg triamcinolo 2020- No [id number] 40mg Univers ne 10-14 ity of acetonide 17:00: 15:49 [place] (KENALOG) 00 :00 Medical injection Branch 40 mg triamcinolo 2020- No [id number] 40mg 40 mg, Univers ne 10-14 Intramuscu ity of acetonide 17:00: 15:49 [place] 00 :00 1 dose, Medical injection Fri Branch 40 mg 10/14/20 at 1200, Routine triamcinolo 2020- No [id number] 40mg 40 mg, Univers ne 10-14 Intramuscu ity of acetonide 17:00: 15:50 [place] 00 :00 1 dose, Medical injection Fri Branch 40 mg 10/14/20 at 1200, Routine triamcinolo 2020- No [id number] 40mg Univers ne 10-14 ity of acetonide 17:00: 15:50 [place] (KENALOG) 00 :00 Medical injection Branch 40 mg triamcinolo 2020- No [id number] 40mg Univers ne 10-14 ity of acetonide 17:00: 15:49 [place] (KENALOG) 00 :00 Medical injection Branch 40 mg triamcinolo 2020- No [id number] 40mg 40 mg, Univers ne 10-14 Intramuscu ity of acetonide 17:00: 15:49 [place]CE[place] ([place] 00 :00 1 dose, Medical injection Fri Branch 40 mg 10/14/20 at 1200, Routine triamcinolo 2020-0 2020- No [id number] 40mg 40 mg, Univers ne 10-14- Intramuscu ity of acetonide 17:00: 15:50 lar, [...] ipratropium 2020-0 Yes Univer s 0.02 % 7- ity of nebulizer 00:00: [place] solution 00 [...] tablet 00:00: [place] 00 Medical Branch DULoxetine 1-0 Yes Univers 60 mg 6-07 ity of capsule 00:00: [place] [facility] atorvastati 2020-0 Yes Univer s n 40 mg 6-07 ity of tablet 00:00: [place] [facility] levothyroxi 2020-0 Yes Univer s ne 50 mcg 6-07 ity of tablet 00:00: [place] [facility] DULoxetine 1-0 Yes Univers 60 mg 6-07 ity of capsule 00:00: [place] [facility] atorvastati 2020-0 Yes Univer s n 40 mg 6-07 ity of tablet 00:00: [place] [address] Medical Branch levothyroxi 2020-0 Yes Univer s ne 50 mcg 6-07 ity of tablet 00:00: [place] [address] Medical Branch DULoxetine 2020-0 Yes Univers 60 mg 6-07 ity of capsule 00:00: [place] [address] Medical Branch atorvastati 2020-0 Yes Univer s n 40 mg 6-07 ity of tablet 00:00: [place] [facility] levothyroxi 2020-0 Yes Univer s ne 50 mcg 6-07 ity of tablet 00:00: [place] [address] Medical Branch DULoxetine 2020-0 Yes Univers 60 mg 6-07 ity of capsule 00:00: [place] [address] Medical Branch atorvastati 2020-0 Yes Univer s n 40 mg 6-07 ity of tablet 00:00: [place] [address] Medical Branch levothyroxi 2020-0 Yes Univer s ne 50 mcg 6-07 ity of tablet 00:00: [place] [facility] lisinopriL 2021-0 Yes Univers 20 mg 6-05 ity of tablet 00:00: [place] [address] Medical Branch potassium 2021-0 Yes Univers chloride 10 6-05 ity of mEq CR 00:00: [place] tablet 00 Medical Branch lisinopriL 2021-0 Yes Univers 20 mg 6-05 ity of tablet 00:00: [place] [address] Medical Branch potassium 2021-0 Yes Univers chloride 10 6-05 ity of mEq CR 00:00: [place] tablet 00 Medical Branch lisinopriL 2021-0 Yes Univers 20 mg 6-05 ity of tablet 00:00: [place] [address] Medical Branch potassium 2021-0 Yes Univers chloride 10 6-05 ity of mEq CR 00:00: [place] tablet 00 Medical Branch lisinopriL Yes Univers 20 mg 6-05 ity of tablet 00:00: [place] 00 [facility] potassium 2020-0 Yes Univers chloride 10 6-05 ity of mEq CR 00:00: [place] tablet 00 [facility] lisinopriL Yes Univers 20 mg 6-05 ity of tablet 00:00: [place] 00 [facility] potassium 2020-0 Yes Univers chloride 10 6-05 ity of mEq CR 00:00: [place] tablet 00 [facility] Macrobid Macrobid 0 2020- No Na Barrera [address] [facility] 08-05 with food [facility] Vital Signs Vital Name Observation Time Observation Value Comments Source Body height 2020-10-14 15:20:00 157.5 cm [facility] Body weight 2020-10-14 15:20:00 106.595 kg [facility] BMI 2020-10-14 15:20:00 42.98 kg/m2 [facility] Procedures Procedure Date / Time Performed Performing Clinician [facility] e XR KNEE 3 VW BILATERAL 2020-10-14 15:09:03 Shonda Rader [facility] ASSIGNMENT OF BENEFITS 2020-10-14 14:47:40 Doctor Unassigned, No [facility] Encounters Start End Encounter Admission Attending Care Care Encounter Source Date/Time Date/Time Type Type Clinicians Facility Department ID 2021-05-04 Outpatient Sophia Barrera STLMLC ST[facility] [id number] [facility] 09:33[facility]01 [facility] 2021-03-31 Outpatient Barrera, Na STLMLC STLMLC [id number] [facility] 12:05:00 [facility] 2021-03-29 Outpatient Bruce Na STLMLC STLMLC [id number] [facility] 14:32:33 [facility] 2021-03-29 Outpatient Bruce Na STLMLC STLMLC [id number] [facility] 13:38:02 [id number] [facility] 2021-03-29 Outpatient Barrera, Na STLMLC STLMLC [id number] [facility] 13:32:46 [id number] [facility] 2021-03-29 Outpatient Barrera, Na STLMLC STLMLC [id number] [facility] 13:30:24 [id number] [facility] 2021-03-29 Outpatient Barrera, Na STLMLC STLMLC [id number] [facility] 13:28:10 [id number] [facility] 2021-03-29 Outpatient Barrera, Na STLMLC STLMLC [id number] [facility] 13:18:02 [id number] [facility] 2021-03-29 Outpatient Barrera, Na STLMLC STLMLC [id number] [facility] 12:24:39 [id number] [facility] 2021-03-29 Outpatient Barrera, Na STLMLC STLMLC [id number] [facility] 12:21:13 [id number] [facility] 2021-03-29 Outpatient Barrera, Na STLMLC STLMLC [id number] [facility] 12:08:19 [id number] [facility] 2021-03-29 Outpatient Barrera, Na STLMLC STLMLC [id number] [facility] 12:03:10 [id number] [facility] 2021-03-29 Outpatient Barrera, Na STLMLC STLMLC [id number] [facility] 11:56:37 [id number] [facility] 2021-03-29 Outpatient Barrera, Na STLMLC STLMLC [id number] [facility] 11:56:07 [id number] [facility] 2021-03-29 Outpatient Barrera, Na STLMLC STLMLC [id number] [facility] 11:55:44 [id number] [facility] 2021-03-29 Outpatient Barrera, Na STLMLC STLMLC [id number] [facility] 11:17:10 [id number] [facility] 2021-03-29 Outpatient Barrera, Na STLMLC STLMLC [id number] [facility] 11:06:23 [id number] [facility] 2021-03-29 Outpatient Bruce, Na STLMLC STLMLC [id number] [facility] [facility] 10:58:22 [id number] [facility] 2021-04-24 2021-04-24 ambulatory [facility]LMLC [facility] [id number] [facility] 2021-04-24 2021-04-24 ambulatory [facility]LMLC [facility] [id number] [facility] 2021-04-18 2021-04-18 ambulatory [facility]MLC [facility] [id number] [facility] 2021-04-07 2021-04-07 ambulatory [facility]LMLC [facility] [id number] [facility] 2021-04-07 2021-04-07 ambulatory [facility]LMLC [facility] [id number] [facility] 2021-03-31 2021-03-31 ambulatory [facility]MLC [facility] [id number] [facility] 2021-03-28 2021-03-28 ambulatory [facility]C [facility] [id number] [facility] 2021-03-17 2021-03-17 ambulatory [facility]MLC [facility] [id number] [facility] 2021-03-16 2021-03-16 ambulatory [facility]MLC [facility] [id number] [facility] 2021-03-16 2021-03-16 ambulatory [facility]MLC [facility] [id number] [facility] 2021-03-13 2021-03-13 [facility] [id number] [facility] 2021-03-10 2021-03-10 ambulatory [facility]MLC [facility] [id number] [facility]00 [facility] 2020-10-14 2020-10-14 [facility] [id number] Univers 09:51:55 23:59:00 Encounter Shonda Lynch Ethel [id number] ity [id number] [id number] [facility] 807 [place] 2020-10-14 2020-10-14 [facility] [id number] Univers 10:14:41 11:07:28 Visit [facility] [id number] it y of Surgical [id number] Yaya as Specialti [id number] Al dical es 198 [facility] 2020-10-14 2020-10-14 [facility] [id number] Univers 00:00:00 00:00:00 SHONDA [id number] ity [facility] 2020-10-14 2020-10-14 [facility] [id number] Univers 00:00:00 00:00:00 SHONDA y [facility] 2020-10-14 2020-10-14 Orders Doctor VASYL [id number] Univers 00:00:00 00:00:00 Only Unassigned, NIKOLE [id number] ity of [facility] [id number] Yaya as [id number] [facility] 009 Branch 2020-10-07 2020-10-07 [facility]patient [facility] [id number] Univers 08:30:00 08:30:00 ELLE ity [facility] 2020-10-03 2020-10-03 [facility] [id number] [facility] 2020-09-27 2020-09-27 Outpatient [facility] [id number] [facility] 2020-09-27 2020-09-27 Outpatient [facility] [id number] [facility] 2020-08-24 2020-08-24 Outpatient [facility]C [facility] [id number] [facility] 2020-08-24 2020-08-24 Outpatient [facility] [id number] [facility] 2020-03-30 2020-03-30 Outpatient [facility] [id number] [facility] 2020-02-08 2020-02-08 Outpatient [facility] [id number] [facility] 2019-12-28 2019-12-28 Outpatient [facility] [id number] [facility] 2019-12-21 2019-12-21 Outpatient [facility] [id number] [facility] 2019-12-21 2019-12-21 Outpatient [facility] [id number] [facility] 2019-12-14 2019-12-14 Outpatient [facility]C [facility] [id number] [facility] 2019-08-27 2019-08-27 [facility] [id number] 08:35:00 08:35:00 [employer] [place] [facility] Outpati ent Clinics 2019-08-10 2019-08-10 [facility] [id number] 14:58:00 14:58:00 t Stewart Stewart [employer] [place] s - [facility] Medicine l Medicine Outpati ent Clinics 2019-08-07 2019-08-07 [facility] [id number] [facility] 15:31:00 15:31:00 t Stewart Stewart [employer] [place] s - Drive [facility] Medicine l Medicine Outpati ent Clinics 2019-08-06 2019-08-06 [facility] [id number] 08:00:00 08:00:00 t Stewart Stewart [employer] [place] s - Drive [facility] Medicine l Medicine Outpati ent Clinics 2019-07-06 2019-07-06 [facility] [id number] 16:34:00 16:34:00 t Stewart Stewart [employer] [place] s - Kyp [facility] l Medicine Outpati ent Clinics 2019-06-11 2019-06-11 [facility] [id number] 11:14:00 11:14:00 t Stewart Stewart [employer] [place] s - Kyp [facility] Medicine l Medicine Outpati ent Clinics 2019-05-28 2019-05-28 [facility] [id number] 16:13:00 16:13:00 t Stewart [employer] s - Kyp [facility] l Medicine Outpati ent Clinics 2019-03-19 2019-03-19 [facility] [id number] 16:53:00 16:53:00 t Stewart Stewart [employer] [place] s - Kyp [facility] Medicine Medicine Outpati ent Clinics 2019-03-17 2019-03-17 [facility] [id number] [facility] 08:02:00 08:02:00 t Stewart Stewart [employer] [place] s - Kyp [facility] Medicine l Medicine Outpati ent Clinics 2019-03-11 2019-03-11 [facility] [id number] [facility] 15:56:00 15:56:00 t Stewart Stewart [employer] [place] s - Drive [facility] l Medicine Outpati ent Clinics 2019-03-11 2019-03-11 [facility] [id number] 08:53:00 08:53:[address] Luke s - Drive [facility] Medicine l Medicine Outpati ent Clinics 2019-03-10 2019-03-10 [facility] [id number] 13:40:00 13:40:[address] Luke s - Drive [facility] l Medicine Outpati ent Clinics 2018-10-28 2018-10-28 [facility] [id number] [facility] 11:44:00 11:44:[address] Luke s - Drive [facility] l Medicine Outpati ent Clinics 2018-10-09 2018-10-09 [facility] [id number] [facility] 09:34:00 09:34:[address] Luke s - [address] [facility] Medicine Outpati ent Clinics 2018-09-01 2018-09-01 [facility] [id number] [facility] 08:40:00 08:40:00 t Stewart [employer] Luke s - Drive [facility] Medicine Outpati ent Clinics 2018-08-29 2018-08-29 [facility] [id number] [facility] 13:39:00 13:39:00 t Stewart [employer] [place] s - Drive [facility] Medicine Medicine Outpati ent Clinics 2018-06-13 2018-06-13 [facility] [id number] [facility] 14:41:00 14:41:00 t Stewart Stewart [employer] [place] s - Drive [facility] Medicine Outpati ent Clinics 2018-06-11 2018-06-11 [facility] [id number] 09:59:00 09:59:[address] Luke s - Drive [facility] Medicine Medicine Outpati ent Clinics 2018-06-03 2018-06-03 [facility] [id number] [facility] 11:00:00 11:00:00 t Stewart Stewart [employer] [place] s - Drive [facility] Medicine Outpati ent Clinics 2018-05-12 2018-05-12 [facility] [id number] 09:43:00 09:43:[address] Luke s - Drive [facility] Medicine l Medicine Outpati ent Clinics 2018-04-17 2018-04-17 [facility] [id number] 13:45:00 13:45:00 t Specialty/U Mikaela kes - Specialty rology Memori a /Urology Clinic l Clinic Outpsychiatric ent Clinics 2018-04-03 2018-04-03 [facility] [id number] 08:31:00 08:31:00 t [facility] ent [facility] 2018-03-28 2018-03-28 [facility] [id number] 13:10:00 13:10:00 t [facility] ent [facility] 2018-03-28 2018-03-28 [facility] [id number] [facility] 10:52:00 10:52:00 t Specialty/U Mikaela [facility] ent [facility] 2018-03-26 2018-03-26 [facility] [id number] [facility] 16:01:00 16:01:00 t [facility] ent [facility] 2018-03-25 2018-03-25 [facility] [id number] [facility] 08:15:00 08:15:00 [facility] ent [facility] 2017-12-16 2017-12-16 Outpatient [facility]C [facility] [id number] [facility] 00:[facility] 00:00:00 [facility] Results Test Description Test Time Test Comments Results Result [facility] e Comments XR KNEE 3 VW 2020-10-02 1. University o f BILATERAL 3 ?Osteoarthritis. [facility] dicsd 17:10:44 RL: [id number] Branch HISTORY: ?bilateral knee [...]
[2021-05-04 16:40] LABS: Absolute Lymphocytes (CBC) 1.6 K/uL (0.7-4.9); Hematocrit 41.8 % (36.0-45.0); Lymphocytes % 24.4 % (15.3-44.8); MPV 9.2 fL (7.6-11.3); RBC Red Blood Cell Count 4.22 M/uL (3.86-4.86)
[2021-05-04] MEDS ORDERED: IPRATROPIUM BROM 0.5MG/2.5ML ONE (16:50)
[2021-05-04] MEDS ORDERED: NA CHLORIDE 0.9% 1,000 ML ONE ×2 (16:50→18:25)
[2021-05-04] MEDS ORDERED: NA CHLORIDE 0.9% 100 ML IV ONE (16:50)
[2021-05-04] MEDS ORDERED: PIPERACIL/TAZO 3.375 GM VIAL IV ONE (16:50)
[2021-05-04] MEDS ORDERED: ALBUTEROL 2.5 MG/3 ML NEB SOL ONE (16:50)
[2021-05-04] MEDS ORDERED: METHYLPREDNISOLONE 125 MG INJ ONE (16:50)
[2021-05-04 16:58] LABS: Arterial Blood Carboxyhemoglob 12.6 % (0-1.5); Blood Gas Oxyhemoglobin 79.3 % (94-97); Blood O2 Saturation 92.1 % (92-98.5)
[2021-05-04 16:59] LABS: ALT/SGPT 18 U/L (12-78); AST/SGOT 16 U/L (15-37); Albumin 3.2 g/dL (3.4-5.0); Alkaline Phosphatase 76 U/L (45-117); BUN Blood Urea Nitrogen 7 mg/dL (7-18); Bicarbonate 36 mmol/L (21-32); Bilirubin Total 0.2 mg/dL (0.2-1.0); Glucose Level 130 mg/dL (74-106); Magnesium 2.2 mg/dL (1.8-2.4); NT PRO-BNP 2109 pg/mL (<125); Potassium 4.9 mmol/L (3.5-5.1); Protein, Total 7.6 g/dL (6.4-8.2); Sodium Level 136 mmol/L (136-145)
[2021-05-04] MEDS ORDERED: RSI MEDICATION KIT IV ONE (17:04)
[2021-05-04 17:05] LABS: Bilirubin Direct < 0.1 mg/dL (0-0.2)
--- NOTE | 2021-05-04 17:21 | ER ---
Nurse's Notes [facility] Name: Earnest Baker Age: 70 yrs Sex: Female : 1950 Arrival Date: 05/04/2021 Time: 15:56 Bed 4 Private MD: Diagnosis: COPD/ Chronic obstructive pulmonary disease with (acute) exacerbation;Hypoxemia;Acute respiratory failure with hypercapnia;Obesity, unspecified Presentation: 05/04 15:59 Chief complaint: EMS states: EMS called for breathing but unresponsive, pt found in ph supine position w/ NC in place \T\ 2L/min, large amount of extension tubing to oxygen concentrator, initial Spo2 80%, pt responsive to painful stimuli only, Spo2 improved to 97 on 4L NC, BP 154/84, HR 110, smells strongly of urine. Coronavirus screen: At this time, unable to obtain information related to travel outside the [place] Ebola Screen: No symptoms or risks identified at this time. Initial Sepsis Screen: Does the patient meet any 2 criteria? Altered Mental Status. HR > 90 bpm. Yes Does the patient have a suspected source of infection? Yes: Dysuria/Frequency/Urgency/UTI. Risk Assessment: Do you want to hurt yourself or someone else? Unable to obtain. Onset of symptoms was May 04, 2021. 15:59 Method Of Arrival: EMS: [facility] 15:59 Acuity: AMANDA 2 ph Historical: - Allergies: 16:06 No Known Allergies; ph - PMHx: 16:06 COPD; diabetes mellitus; Gastroesophageal reflux disease; Hypertension; Hypothyroidism; ph - Immunization history:: Adult Immunizations unknown. - Social history:: Smoking status: unknown. Screenin:07 Abuse screen: Denies threats or abuse. Denies injuries from another. Nutritional ph screening: No deficits noted. Tuberculosis screening: No symptoms or risk factors identified. Fall Risk None identified. Assessment: 16:30 General: Behavior is unresponsive. Pain: Unable to use pain scale. Patient is ph unresponsive. Neuro: Level of Consciousness is unresponsive, opens eyes to voice or tactile stimuli. Cardiovascular: Capillary refill < 3 seconds in bilateral fingers Patient's skin is warm and dry. Respiratory: Airway is patent Respiratory effort is labored, Respiratory pattern is symmetrical. GI: Abdomen is round non-distended. Derm: Skin is intact, Skin is pink, warm \T\ dry. 17:00 Reassessment: ABGs abnormal, Dr Vázquez at bedside for intubation. ph 17:54 Reassessment: pts sister Vonnie ph#[phone] visited pt. took pts upper and lower tw2 dentures and gold chain necklace home at this time. 18:05 Reassessment: pt blinking eyes, and bucking the vent, medicated as per VO per Dr. irina Vázquez at 100%. 19:18 General: Appears obese. General: Patient appears restless. Opening eyes. . Pain: Unable tw5 to use pain scale. Patient is intubated. Neuro: Level of Consciousness is intubated. Cardiovascular: Capillary refill < 3 seconds is brisk in bilateral fingers. Respiratory: Ventilator assessment: ET Tube: 7.5 24 at the lip. 19:31 General: spoke to vonnie, the sister, gave her an update. . tw5 Vital Signs: 15:59 BP 166 / 89; Pulse 102; Resp 18; Temp 98.3(TE); Pulse Ox 100% on 5 lpm NC; ph 17:15 BP 132 / 68; Pulse 107; Resp 20 A; Pulse Ox 100% on 80% FiO2 ETT vent; tw2 17:45 BP 123 / 65; Pulse 96; Resp 14; Pulse Ox 100% on ETT vent; tw2 18:00 BP 148 / 88; Pulse 88; Resp 19; Pulse Ox 100% on R/A; tw2 18:15 BP 105 / 69; Pulse 87; Resp 16; Pulse Ox 100% on ETT vent; tw2 18:30 BP 123 / 70; Pulse 92; Resp 21; Pulse Ox 100% on ETT vent; tw2 18:45 BP 99 / 76; Pulse 86; Resp 17; Pulse Ox 100% on ETT vent; tw2 18:49 BP 96 / 60; Pulse 85; Resp 17; Pulse Ox 100% on ETT vent; tw2 18:53 BP 100 / 84; Pulse 86; Resp 17; Pulse Ox 100% on ETT vent; tw2 19:06 Weight 110 kg; ph 19:15 BP 111 / 79; Pulse 83; Resp 16; Pulse Ox 100% on ETT vent; tw5 19:25 BP 124 / 104; tw5 19:29 BP 95 / 49; Pulse 81; Pulse Ox 100% on ETT vent; ph 21:20 BP 114 / 48; Pulse 74; Resp 16; Pulse Ox 93% on ETT vent; ph 17:15 per Mita,RT rate 20, tv 490, will adjust to pts condition. tw2 ED Course: 15:56 Patient arrived in ED. ds1 16:06 Triage completed. ph 16:06 Arm band placed on Patient placed in an exam room, on desk monitor, on pulse ph oximetry. 16:07 Patient has correct armband on for positive identification. Bed in low position. Side ph rails up X2. security monitor on. Pulse ox on. NIBP on. 16:18 Jaxon Vázquez MD is Attending Physician. malachi 16:20 Inserted saline lock: 20 gauge in left antecubital area, using aseptic technique. Blood tp1 collected. 16:30 Bernarda Marin RN is Primary Nurse. ph 16:55 Lo cath inserted, using sterile technique, 16 Fr., by ED staff, balloon inflated, to ph gravity drainage, urine specimen collected. 17:11 Assisted provider with intubation using 7.5 mm ETT via oral route. ET tube secured at tw2 22cm at the lips. Set up intubation tray. Intubated by Jaxon Vázquez MD. 17:19 Edgar Galvez MD is Hospitalizing Provider. malachi 17:25 OG tube inserted by MANAV Smiley, verified by auscultation and return of gastric tw2 contents. 17:44 XRAY Chest (1 view) In Process Unspecified. EDMS 17:46 CXR XRAY In Process Unspecified. EDMS 19:10 Primary Nurse role handed off by Bernarda Marin RN cs9 19:15 Ara Aguayo is Primary Nurse. tw5 19:25 Patient admitted, IV remains in place. ph Restraints: 18:15 Non-Violent Restraint: Order obtained. Initiated on May 04, 2021 at 18:15 Unable to ph provide Restraint education. pt intubated and sedated, sister at bedside educated about the need for restraints. Actions/Behavior observed: Confused/disoriented, has impaired decision making, has decreased level of consciousness, unable to follow instructions, repeated attempts to remove artifical airway/mechanical resp support, Alternative interventions: Ineffective. Clinical justification for use: airway protection, line protection, Cognition: Unable to assess. Circulation: Within defined parameters (based on Cardiovascular assessment) Skin integrity: Within defined parameters (based on Integumentary assessment) Signs of injury related to restraint: No injuries noted. Restraint status: Side rails up x 4 Soft wrist restraint (Right) Started. Soft wrist restraint (Left) Soft ankle restraint (Right) Started. Administered Medications: 17:05 Drug: NS 0.9% 1000 ml Route: IV; Rate: 1 bolus; Site: left antecubital; ph 19:00 Follow up: Response: No adverse reaction; IV Status: Completed infusion; IV Intake: ph 1000ml 17:10 Drug: Etomidate 20 mg Route: IVP; Site: left antecubital; tw2 19:16 Follow up: Response: No adverse reaction tw5 17:10 Drug: Rocuronium 75 mg Route: IVP; Site: left antecubital; tw2 19:16 Follow up: Response: No adverse reaction tw5 17:13 CANCELLED (Duplicate Order): Etomidate 20 mg IVP once tw2 17:13 Not Given (Duplicate Order): Rocuronium 75 mg IVP once tw2 18:00 Drug: Zosyn (piperacillin-tazobactam) 3.375 grams Route: IVPB; Infused Over: 60 mins; ph Site: right antecubital; 19:00 Follow up: Response: No adverse reaction; IV Status: Completed infusion ph 18:08 Drug: Versed (midazolam) 4 mg Route: IVP; Site: left antecubital; tw2 19:16 Follow up: Response: No adverse reaction tw5 18:15 Drug: SOLU-Medrol (methylPrednisoLONE) 125 mg Route: IVP; Site: left antecubital; ph 19:26 Follow up: Response: No adverse reaction ph 18:15 Drug: NS 0.9% 1000 ml Route: IV; Rate: 125 ml/hr; Site: left antecubital; ph 19:26 Follow up: Response: No adverse reaction; IV Status: Infusion continued upon admission ph 18:35 Drug: Albuterol - atroVENT (ipratropium) (3:1) (2.5 mg - 0.5 mg) 3 ml Route: Nebulizer; ph 19:26 Follow up: Response: No adverse reaction ph 19:15 Drug: Propofol 5 mcg/kg/min Route: IV; Rate: calculated rate; Site: left antecubital; tw5 19:15 Follow up: BP 111 / 79; Pulse 83 bpm; Resp 16 bpm; Pulse Ox 100% FiO2 Vent; Rate change tw5 15 mcg/kg/min 19:25 Follow up: BP 124 / 104; Rate change 20 mcg/kg/min tw5 19:35 Drug: Ativan (LORazepam) 2 mg Route: IVP; Site: left antecubital; ph Intake: 19:00 IV: 1000ml; Total: 1000ml. ph Outcome: 17:20 Decision to Hospitalize by Provider. malachi 20:53 Admitted to ICU Report called to report given to renee tw5 21:27 Admitted to ICU ph 21:36 Admitted to ICU Report called to MANAV De La Rosa ph 22:12 Patient left the ED. tw5 Signatures: Dispatcher [employer] EDMS Jaxon Vázquez MD MD cha Sanford, Shante ds1 Bernarda Marin RN RN ph La Camara RN RN tw2 Olivier, Ara tw5 Yaquelin Herr [facility] Ara Alvarado 1 Corrections: (The following items were deleted from the chart) 21:21 19:29 BP 95 / 49; Pulse 81bpm; Pulse Ox 100% RA; tw5 ph
--- NOTE | 2021-05-04 17:21 | EDPHYS ---
Physician Documentation [facility] Name: Earnest Baker Age: 70 yrs Sex: Female : 1950 Arrival Date: 05/04/2021 Time: 15:56 Bed 4 Private MD: ED Physician Jaxon Vázquez HPI: 05/04 17:14 This 70 yrs old Female presents to ER via EMS with complaints of Altered malachi Mental Status. 17:14 The patient presents with confusion, decreased mental status, decreased responsiveness. malachi Onset: The symptoms/episode began/occurred 1 day(s) ago. Possible causes: CVA or TIA, drug use, alcohol, head injury, low blood sugar, sepsis. Associated signs and symptoms: Pertinent positives: obtunded, on oxygen at home. Current symptoms: In the emergency department the patient's symptoms are unchanged from the initial presentation. Patient's baseline: Neuro:. The patient has not experienced similar symptoms in the past. Historical: - Allergies: 16:06 No Known Allergies; ph - PMHx: 16:06 COPD; diabetes mellitus; Gastroesophageal reflux disease; Hypertension; Hypothyroidism; ph - Immunization history:: Adult Immunizations unknown. - Social history:: Smoking status: unknown. ROS: 17:15 Constitutional: Negative for fever, chills, and weight loss, Eyes: Negative for injury, malachi pain, redness, and discharge, ENT: Negative for injury, pain, and discharge, Neck: Negative for injury, pain, and swelling, Abdomen/GI: Negative for abdominal pain, nausea, vomiting, diarrhea, and constipation, Back: Negative for injury and pain, : Negative for injury, bleeding, discharge, and swelling, MS/Extremity: Negative for injury and deformity, Skin: Negative for injury, rash, and discoloration, Psych: Negative for depression, anxiety, suicide ideation, homicidal ideation, and hallucinations, Allergy/Immunology: Negative for hives, rash, and allergies, Endocrine: Negative for neck swelling, polydipsia, polyuria, polyphagia, and marked weight changes, Hematologic/Lymphatic: Negative for swollen nodes, abnormal bleeding, and unusual bruising. 17:15 Cardiovascular: Positive for palpitations. 17:15 Respiratory: Positive for shortness of breath. 17:15 Neuro: Positive for altered mental status. Exam: 17:15 Constitutional: This is a well developed, well nourished patient who is awake, alert, malachi and in no acute distress. Head/Face: Normocephalic, atraumatic. Eyes: Pupils equal round and reactive to light, extra-ocular motions intact. Lids and lashes normal. Conjunctiva and sclera are non-icteric and not injected. Cornea within normal limits. Periorbital areas with no swelling, redness, or edema. ENT: Nares patent. No nasal discharge, no septal abnormalities noted. Tympanic membranes are normal and external auditory canals are clear. Oropharynx with no redness, swelling, or masses, exudates, or evidence of obstruction, uvula midline. Mucous membranes moist. Neck: Trachea midline, no thyromegaly or masses palpated, and no cervical lymphadenopathy. Supple, full range of motion without nuchal rigidity, or vertebral point tenderness. No Meningismus. Chest/axilla: Normal chest wall appearance and motion. Nontender with no deformity. No lesions are appreciated. Cardiovascular: Regular rate and rhythm with a normal S1 and S2. No gallops, murmurs, or rubs. Normal PMI, no JVD. No pulse deficits. Abdomen/GI: Soft, non-tender, with normal bowel sounds. No distension or tympany. No guarding or rebound. No evidence of tenderness throughout. Back: No spinal tenderness. No costovertebral tenderness. Full range of motion. Skin: Warm, dry with normal turgor. Normal color with no rashes, no lesions, and no evidence of cellulitis. 17:15 Respiratory: moderate respiratory distress is noted, Breath sounds: decreased breath sounds, that are moderate, rhonchi, that are moderate, are scattered, stridor, is not appreciated, + upper airway congestion. Respiratory rate: 102 Vital Signs: 15:59 BP 166 / 89; Pulse 102; Resp 18; Temp 98.3(TE); Pulse Ox 100% on 5 lpm NC; ph 17:15 BP 132 / 68; Pulse 107; Resp 20 A; Pulse Ox 100% on 80% FiO2 ETT vent; tw2 17:45 BP 123 / 65; Pulse 96; Resp 14; Pulse Ox 100% on ETT vent; tw2 18:00 BP 148 / 88; Pulse 88; Resp 19; Pulse Ox 100% on R/A; tw2 18:15 BP 105 / 69; Pulse 87; Resp 16; Pulse Ox 100% on ETT vent; tw2 18:30 BP 123 / 70; Pulse 92; Resp 21; Pulse Ox 100% on ETT vent; tw2 18:45 BP 99 / 76; Pulse 86; Resp 17; Pulse Ox 100% on ETT vent; tw2 18:49 BP 96 / 60; Pulse 85; Resp 17; Pulse Ox 100% on ETT vent; tw2 18:53 BP 100 / 84; Pulse 86; Resp 17; Pulse Ox 100% on ETT vent; tw2 19:06 Weight 110 kg; ph 19:15 BP 111 / 79; Pulse 83; Resp 16; Pulse Ox 100% on ETT vent; tw5 19:25 BP 124 / 104; tw5 19:29 BP 95 / 49; Pulse 81; Pulse Ox 100% on ETT vent; ph 21:20 BP 114 / 48; Pulse 74; Resp 16; Pulse Ox 93% on ETT vent; ph 17:15 per Mita,RT rate 20, tv 490, will adjust to pts condition. tw2 Procedures: 17:24 Intubation: Ventilated with 100% NRB prior to procedure. Intubated orally using # 4 malachi Vicki blade with 7.5 mm ETT. was successful on first attempt. Ventilated with Ambu bag. ventilator. Tube secured with ETT lord at right side of mouth measured 24 cm at lip. Placement verified by CXR, CO2 detector with (+) color change, auscultating bilateral breath sounds, O2 saturation after procedure was 100 %. Patient tolerated well. MDM: 16:18 Patient medically screened. malachi 17:23 Differential diagnosis: asthma, Bronchitis Chronic Obstructive Pulmonary Disease malachi Myocardial Infarction pneumonia, pulmonary edema, Sepsis Unstable Angina. Antibiotic administration: zosyn. Differential Diagnosis altered mental status, sepsis, flu. Differential Diagnosis: CVA, electrolyte abnormality, alcohol intoxication, hypoglycemia, intracranial bleed, meningitis, overdose, pneumonia, sepsis, TIA, volume depletion. The patient's Wells Deep Vein Thrombosis Score was calculated as follows: Heart Rate >100 BPM (1.5 Pts) Total Score: 0-2 Pts- Low Risk. The patient's pulmonary embolism risk score was calculated as follows: the patients heart rate is greater than 100 beats per minute (1.5 Pts) Total Score: 0-2 points. This patient was found to be at low risk for a pulmonary embolism by using the Well's assessment criteria. Immunization status: Pneumococcal vaccine: Influenza vaccine: Data reviewed: vital signs, nurses notes, EMS record, lab test result(s), EKG, radiologic studies, CT scan, plain films. Data interpreted: house designer: rate is 107 beats/min, rhythm is regular, Pulse oximetry: on room air is 96 %. Test interpretation: by ED physician or midlevel provider: ECG, plain radiologic studies. Counseling: I had a detailed discussion with the patient and/or guardian regarding: the historical points, exam findings, and any diagnostic results supporting the discharge/admit diagnosis, lab results, radiology results, the need for further work-up and treatment in the hospital. 05/04 16:32 Order name: Basic Metabolic Panel; Complete Time: 17:43 [facility] 05/04 16:32 Order name: CBC with Diff; Complete Time: 17:43 [facility] 05/04 16:32 Order name: LFT's; Complete Time: 17:43 [facility] 05/04 16:32 Order name: Magnesium; Complete Time: 17:43 [facility] 05/04 16:32 Order name: NT PRO-BNP; Complete Time: 17:43 [facility] 05/04 16:32 Order name: PT-INR; Complete Time: 17:43 [facility] 05/04 16:32 Order name: Troponin HS; Complete Time: 17:43 [facility] 05/04 16:32 Order name: Blood Culture Adult (2) [facility] 05/04 16:32 Order name: COVID-19/FLU A+B/RSV (Document "Date of Onset" if Symptomatic) [facility] 05/04 16:32 Order name: Procalcitonin; Complete Time: 17:43 [facility] 05/04 16:32 Order name: Lactate; Complete Time: 17:43 [facility] 05/04 16:32 Order name: ABG; Complete Time: 17:43 [facility] 05/04 16:42 Order name: AMMONIA [facility] 05/04 16:42 Order name: Ammonia EDMS 05/04 16:32 Order name: XRAY Chest (1 view); Complete Time: 18:01 [facility] 05/04 16:32 Order name: CT Head Brain wo Cont [facility] 05/04 17:03 Order name: Acetaminophen [facility] 05/04 17:03 Order name: ETOH Level [facility] 05/04 17:03 Order name: Ptt, Activated [facility] 05/04 17:03 Order name: Salicylate [facility] 05/04 17:03 Order name: Urine Drug Screen [facility] 05/04 17:14 Order name: CXR XRAY; Complete Time: 18:01 05/04 19:42 Order name: Urine Dipstick-Ancillary EDTX 05/04 20:44 Order name: CT EDTX 05/04 16:32 Order name: EKG; Complete Time: 16:33 [facility] 05/04 16:32 Order name: Cardiac monitoring; Complete Time: 16:33 [facility] 05/04 16:32 Order name: EKG - Nurse/Tech; Complete Time: 21:21 [facility] 05/04 16:32 Order name: IV Saline Lock; Complete Time: 16:33 [facility] 05/04 16:32 Order name: Labs collected and sent; Complete Time: 16:33 [facility] 05/04 16:32 Order name: O2 Per Protocol; Complete Time: 16:33 [facility] 05/04 16:32 Order name: O2 Sat Monitoring; Complete Time: 16:33 [facility] 05/04 16:32 Order name: Lo; Complete Time: 16:55 [facility] 05/04 16:32 Order name: Blood Glucose Level; Complete Time: 17:26 [facility] 05/04 17:03 Order name: Urine Dipstick-Ancillary (obtain specimen); Complete Time: 19:42 [facility] 05/04 17:12 Order name: NG Tube; Complete Time: 17:25 [facility] 05/04 17:14 Order name: Intubation Setup; Complete Time: 17:25 [facility] 05/04 18:02 Order name: Restraint:Violent/Self Destructive (Adult:18yo or >); Complete Time: 18:13 [facility] Administered Medications: 17:05 Drug: NS 0.9% 1000 ml Route: IV; Rate: 1 bolus; Site: left antecubital; ph 19:00 Follow up: Response: No adverse reaction; IV Status: Completed infusion; IV Intake: ph 1000ml 17:10 Drug: Etomidate 20 mg Route: IVP; Site: left antecubital; tw2 19:16 Follow up: Response: No adverse reaction tw5 17:10 Drug: Rocuronium 75 mg Route: IVP; Site: left antecubital; tw2 19:16 Follow up: Response: No adverse reaction tw5 17:13 CANCELLED (Duplicate Order): Etomidate 20 mg IVP once tw2 17:13 Not Given (Duplicate Order): Rocuronium 75 mg IVP once tw2 18:00 Drug: Zosyn (piperacillin-tazobactam) 3.375 grams Route: IVPB; Infused Over: 60 mins; ph Site: right antecubital; 19:00 Follow up: Response: No adverse reaction; IV Status: Completed infusion ph 18:08 Drug: Versed (midazolam) 4 mg Route: IVP; Site: left antecubital; tw2 19:16 Follow up: Response: No adverse reaction tw5 18:15 Drug: SOLU-Medrol (methylPrednisoLONE) 125 mg Route: IVP; Site: left antecubital; ph 19:26 Follow up: Response: No adverse reaction ph 18:15 Drug: NS 0.9% 1000 ml Route: IV; Rate: 125 ml/hr; Site: left antecubital; ph 19:26 Follow up: Response: No adverse reaction; IV Status: Infusion continued upon admission ph 18:35 Drug: Albuterol - atroVENT (ipratropium) (3:1) (2.5 mg - 0.5 mg) 3 ml Route: Nebulizer; ph 19:26 Follow up: Response: No adverse reaction ph 19:15 Drug: Propofol 5 mcg/kg/min Route: IV; Rate: calculated rate; Site: left antecubital; tw5 19:15 Follow up: BP 111 / 79; Pulse 83 bpm; Resp 16 bpm; Pulse Ox 100% FiO2 Vent; Rate change tw5 15 mcg/kg/min 19:25 Follow up: BP 124 / 104; Rate change 20 mcg/kg/min tw5 19:35 Drug: Ativan (LORazepam) 2 mg Route: IVP; Site: left antecubital; ph Disposition Summary: 05/04/21 17:20 Hospitalization Ordered Hospitalization Status: Inpatient Admission malachi Provider: Edgar Galvez cha Condition: Serious malachi Problem: new malachi Symptoms: have improved malachi Bed/Room Type: Standard malachi Location: Intensive Care Unit(05/04/21 20:06) cg Room Assignment: 5-(05/04/21 20:06) cg Diagnosis - COPD/ Chronic obstructive pulmonary disease with (acute) exacerbation malachi - Hypoxemia malachi - Acute respiratory failure with hypercapnia malachi - Obesity, unspecified malachi Forms: - Medication Reconciliation Form malachi - SBAR form malachi Signatures: Dispatcher [employer] Jaxon Ann MD MD cha Attema, Lee, DIAMOND SETTER APPRENTICE-C DIAMOND SETTER APPRENTICE-Cla1 Bernarda Marin, RN RN Terence, Marcy RN RN La Camara RN RN tw2 Gerson Griffiths RN RN ja1 Ara Aguayo tw5 Corrections: (The following items were deleted from the chart) 17:13 17:12 Etomidate 20 mg IVP once ordered. [facility] tw2 17:25 17:03 Suicide Screening ([place]) ordered. [facility] ph 18:39 17:20 Int[facility] Care Unit [facility] 18:39 17:20 [facility] ja1 20:06 18:39 [facility]g 20:06 18:39 ERHOLD- ja1 cg
--- NOTE | 2021-05-04 17:58 | RAD REPORT ---
EXAM DESCRIPTION: RAD - Chest Single View - 05/04/2021 5:44 pm CLINICAL HISTORY: COUGH COMPARISON: Portable 03/07/2021 TECHNIQUE: AP portable chest image was obtained 05/04/2021 5:44 pm . FINDINGS: Lung volumes are low. Stranding is seen in each lung base that is most likely atelectasis. Interstitial edema or infiltrate would be possible. No diffuse or significant pulmonary edema patter n. Small pleural effusion on the left is possible. Heart size within normal range for portable imagin g. No pneumothorax. No acute bony abnormality seen. No acute aortic findings suspected. IMPRESSION: Limited shallow inspiration film showing lung base interstitial infiltrate, edema or ate lectasis, all accentuated due to shallow inspiration. Small left pleural effusion not excluded.
--- NOTE | 2021-05-04 17:59 | RAD REPORT ---
EXAM DESCRIPTION: RAD - Chest Single View - 05/04/2021 5:46 pm CLINICAL HISTORY: post intubation COMPARISON: Portable 05/04/2021 TECHNIQUE: AP portable chest image was obtained 05/04/2021 5:46 pm . FINDINGS: Endotracheal tube been placed. Tip is top of the aortic arch 4 cm above the foster. NG tub e has placed extending below the diaphragm. Tip is not visualized is likely in the gastric antrum. Lung field aeration has improved. Lung base interstitial markings are less prominent. No significant pulmonary edema or focal infiltrative process. Heart and vasculature are normal. No pneumothorax is seen. Hazy left hemidiaphragm left costophrenic angle blunting remain could indicate small left pleural effusion. No acute bony abnormality seen. No acute aortic findings suspected. IMPRESSION: Endotracheal tube in place with the tip top of the aortic arch 4 cm above the foster -go od positioning NG tube in place with the tip in the gastric antrum region well below the diaphragm.
[2021-05-04] MEDS ORDERED: MIDAZOLAM HCL 2 MG/2 ML INJ ONE ×2 (18:08)
[2021-05-04] MEDS ORDERED: propofoL 1,000 MG/100 ML VIAL IV ONE (18:31)
--- NOTE | 2021-05-04 19:18 | P.HP ---
Certification for Inpatient Patient admitted to: Inpatient With expected LOS: >2 Midnights Patient will require the following post-hospital care: None Practitioner: I am a practitioner with admitting privileges, knowledge of patient current condition, hospital course, and medical plan of care. Services: Services provided to patient in accordance with Admission requirements found in Title 42 Section 412.3 of the Code of Federal Regulations Patient History Date of Service: 05/04/21 Reason for admission: Respiratory failure History of Present Illness: 70-year-old female with history of COPD on chronic home oxygen therapy presents the emergency department unresponsive. Patient was transported by EMS who found her hypoxic while on her home oxygen with very long tubing with saturations in the 70s to 80s. Upon arrival to the emergency room and patient was intubated. Initial blood gas demonstrated hypercapnic respiratory failure also noted moderate elevation in BNP chest x-ray demonstrated good placement of ET tube with poor inspiration film. ED provider wishes to admit to ICU for acute on chronic hypercapnic respiratory failure. Allergies No Known Allergies Allergy (Verified 12/07/19 09:23) Home Medications: Acetaminophen [Tylenol] 2 tab PO Q6H PRN 02/18/21 Acetaminophen-Codeine Tablet 300-30 1 tab PO Q6HP PRN 02/18/21 Arginald Packet 1 packet PO BID 02/18/21 Ascorbic Acid 500 mg PO BID 02/18/21 Duloxetine HCl 30 mg PO DAILY 02/18/21 Ergocalciferol (Vitamin D2) [Vitamin D 50,000 Unit Cap] 50,000 unit PO SEECOM 02/18/21 Folic Acid 1 mg PO DAILY 02/18/21 Furosemide [Lasix] 40 mg PO DAILY 02/18/21 Glucagon [Gvoke Pfs 1-Pack Syringe] 1 mg IM Q6HP PRN 02/18/21 Insulin Aspart [Novolog Flexpen] See Protocol SQ BID 02/18/21 Ipratropium/Albuterol Sulfate [Iprat-Albut 0.5-3(2.5) mg/3 ml] 3 ml IH Q6H PRN 02/18/21 Melatonin 5 mg PO BEDTIME 02/18/21 Multivitamins-Minerals 1 tab PO DAILY 02/18/21 Omeprazole Magnesium [Prilosec Otc] 20 mg PO DAILY 02/18/21 Potassium Chloride 2 tab PO DAILY 02/18/21 Prednisone [Sterapred Ds] 10 mg PO DAILY 02/18/21 Promethazine HCl 25 mg PO Q6H PRN 02/18/21 Protein Liquid 30 ml PO BID 02/18/21 Thiamine HCl 100 mg PO DAILY 02/18/21 Zinc Sulfate [Zinc Sulfate*] 220 mg PO DAILY 02/18/21 Atorvastatin Calcium [Lipitor] 40 mg PO BEDTIME #30 tab 02/27/21 Docusate [Colace Cap*] 100 mg PO DAILY #30 cap 02/27/21 Hydrocodone 5/APAP 325 [[place]field 5/325*] 1 tab PO Q6H PRN #30 tab 02/27/21 Spencer [Spencer*] 1 pkt PO BID #60 powd.pack 02/27/21 Metoprolol Tartrate [Lopressor*] 12.5 mg PO BID 6AM 6PM #60 tab 02/27/21 - Past Medical/Surgical History Diabetic: No -: COPDon home oxygen -: Hypertension -: Chronic pain -: Major depressive disorder Past Surgical History: Unable to obtain Psychosocial/ Personal History: Unemployed,, lives at home with her - Family History Father History Unknown: Yes - Social History Smoking Status: Unknown if ever smoked Alcohol use: Yes CD- Drugs: No Caffeine use: No Place of Residence: Home Review of Systems is unable to be obtained (Intubated) Physical Examination - Physical Exam General: Unresponsive (On vent) Neck: Supple Respiratory: Diminished, Expiratory wheezes Cardiovascular: Normal pulses, Normal S1 S2 Capillary refill: <2 Seconds Gastrointestinal: Normal bowel sounds, No masses, No guarding Musculoskeletal: No contractures, No erythema, No tenderness Integumentary: No tenderness/swelling, No erythema, No warmth Neurological: Other (Sedated, on ventilator) - Studies Laboratory Data (last 24 hrs) 05/04/21 16:19: PT 11.5, INR 1.00 05/04/21 16:19: WBC 6.70, Hgb 13.6, Hct 41.8, Plt Count 340 05/04/21 16:19: Sodium 136, Potassium 4.9, BUN 7, Creatinine 0.82, Glucose 130 H, Magnesium 2.2, Total Bilirubin 0.2, AST 16, ALT 18, Alkaline Phosphatase 76 Assessment and Plan - Plan Assessment: Acute on chronic hypoxic, hypercapnic respiratory failure secondary to COPD with exacerbation, hypoventilation syndrome Diabetes mellitus type 2not insulin-dependent Hypertension Hyperlipidemia Chronic pain with neuropathy Plan: Acute on chronic hypoxic, hypercapnic respiratory failure secondary to COPD with exacerbation, hypoventilation syndrome: Patient was intubated in the emergency department continue with ICU level of care, ventilator management by pulmonary. Scheduled nebs, steroids. Admit to ICU. Repeat ABG this evening again in the morning. Patient mentation already improving, requiring sedation at this time. Appreciate further input from pulmonology. Diabetes mellitus type 2not insulin-dependent: During previous admission patient was no longer on medication for diabetes, unable to obtain more information at this time as patient is on ventilator. Will place on mild sliding scale. Get A1c in the morning. Hypertension: As needed antihypertensives at this time as patient will be n.p.o. Continue medications when appropriate. Hyperlipidemia: Continue home medications when appropriate Chronic pain with neuropathy: Continue home medications when appropriate. DVT PPX: Lovenox Code status:Full Discharge Plan: Home Plan to discharge in: Greater than 2 days - Advance Directives Does patient have a Living Will: No Does patient have a Durable POA for Healthcare: No - Code Status/Comfort Care Code Status Assessed: Yes (Full) Critical Care: No Time Spent Managing Pts Care (In Minutes): 55
[2021-05-04] MEDS ORDERED: LORazepam 2 MG/ML VIAL ONE (19:32)
[2021-05-04 19:42] LABS: Urine Blood Negative (Negative); Urine Glucose Negative (Negative); Urine Protein 1+ (Negative); Urine Specific Gravity 1.025 (1.005-1.030)
[2021-05-04 19:43] LABS: SARS-COV-2 RT PCR NEGATIVE (NEGATIVE)
[2021-05-04 20:20] LABS: Barbiturates NEGATIVE (NEGATIVE); Benzodiazepines NEGATIVE (NEGATIVE); Cocaine NEGATIVE (NEGATIVE); METHAMPHETAM NEGATIVE (NEGATIVE); Methadone NEGATIVE (NEGATIVE); Opiates POSITIVE (NEGATIVE); Phencyclidine NEGATIVE (NEGATIVE); THC Cannibis NEGATIVE (NEGATIVE)
--- NOTE | 2021-05-04 20:42 | RAD REPORT ---
EXAM DESCRIPTION: CT - Head Brain Wo Cont - 05/04/2021 8:20 pm CLINICAL HISTORY: MENTAL STATUS CHANGE COMPARISON: Head Brain Wo Cont dated 12/26/2020 TECHNIQUE: Axial 5 mm thick images of the head were obtained without IV contrast. All CT scans are performed using dose optimization technique as appropriate and may include automated exposure control or mA/KV adjustment according to patient size. FINDINGS: No intracranial hemorrhage, mass, edema or shift of mid-line structures. No acute cortical based infarction identified. No cortical edema or sulcal effacement. No significant atrophy changes are present. Ventricles are normal size. No abnormal extra-axial fluid collections. Cerebral white ma tter chronic ischemic changes are present similar to comparison. Mastoid air cells are clear. No air-fluid level in the paranasal sinuses. ET tube and NG tube are navdeep ce. No acute bony findings. IMPRESSION: No acute intracranial finding identifiable. Chronic ischemic pattern matches the December 2020 study. No significant atrophy.
[2021-05-04] MEDS ORDERED: ONDANSETRON 4 MG/2 ML VIAL IV PRN (21:28)
[2021-05-04] MEDS: ALBUTEROL 2.5 MG/3 ML NEB SOL NEB SCH (21:28)
[2021-05-04] MEDS: INSULIN -REGULAR HUMAN 50 UNIT/0.5 ML ML SQ SCH (21:28)
[2021-05-04] MEDS: IPRATROPIUM BROM 0.5MG/2.5ML NEB SCH (21:28)
[2021-05-04] MEDS: D5 0.45 NS 1,000 ML IV SCH (22:30)
[2021-05-04] MEDS: FAMOTIDINE 20 MG/2 ML VIAL IV SCH (23:02)
[2021-05-04] MEDS: propofoL 1,000 MG/100 ML VIAL IV PRN (23:40)
[2021-05-05] MEDS: METHYLPREDNISOLONE 40 MG INJ IV SCH ×3 (00:06→16:40)
[2021-05-05] MEDS: ALBUTEROL 2.5 MG/3 ML NEB SOL NEB SCH ×4 (01:11→20:10)
[2021-05-05] MEDS: IPRATROPIUM BROM 0.5MG/2.5ML NEB SCH ×4 (01:11→20:10)
[2021-05-05 04:43] LABS: Arterial Blood Carboxyhemoglob 1.5 % (0-1.5); Blood Gas Oxyhemoglobin 92.4 % (94-97); Blood O2 Saturation 94.9 % (92-98.5)
[2021-05-05] MEDS: propofoL 1,000 MG/100 ML VIAL IV PRN ×5 (04:55→23:08)
[2021-05-05 05:02] LABS: Absolute Lymphocytes (CBC) 0.5 K/uL (0.7-4.9); Hematocrit 37.6 % (36.0-45.0); Lymphocytes % 14.9 % (15.3-44.8); MPV 9.1 fL (7.6-11.3); RBC Red Blood Cell Count 3.92 M/uL (3.86-4.86)
[2021-05-05 05:23] LABS: Albumin 2.7 g/dL (3.4-5.0); Bilirubin Total 0.2 mg/dL (0.2-1.0); Potassium 3.8 mmol/L (3.5-5.1); Protein, Total 6.5 g/dL (6.4-8.2)
[2021-05-05 05:24] LABS: Magnesium 1.9 mg/dL (1.8-2.4)
--- NOTE | 2021-05-05 06:00 | P.PN ---
Date of Service: 05/05/21 Subjective: Remains intubated/sedated ABG improving No acute events since admission ROS: Unable to be obtained, intubated Physical exam GEN: Intubated, sedated HEENT: Normal conjunctiva, sclera anicteric CV: Regular rate and rhythm Pulm: Wheeze bilaterally ABD: Soft, nontender, nondistended Integumentary: No rashes Neuro: Normal speech, normal affect Problem List Acute on chronic hypoxic, hypercapnic respiratory failure secondary to COPD with exacerbation, hypoventilation syndrome Diabetes mellitus type 2not insulin-dependent Hypertension Hyperlipidemia Chronic pain with neuropathy Continue ICU level care Continue ventilator management, per pulmonary Continue nebs, steroids ABG with improved hypercarbia Likely extubation in the next 24 hours, wean vent Improving Restart home medications once taking p.o. VTE: Lovenox Code: Full Dispo: Likely home, ~2-3 days
[2021-05-05] MEDS: INSULIN -REGULAR HUMAN 50 UNIT/0.5 ML ML SQ SCH ×4 (07:30→20:51)
[2021-05-05] MEDS ORDERED: ENOXAPARIN 40 MG/0.4 ML SQ SCH (09:00)
[2021-05-05] MEDS ORDERED: Levofloxacin 750mg IV 750 MG/150 ML BAG IV SCH (09:00)
[2021-05-05] MEDS: FAMOTIDINE 20 MG/2 ML VIAL IV SCH ×2 (09:14→20:52)
[2021-05-05] MEDS: HYDROMORPHONE HCL 1 MG/ML INJ IV PRN ×2 (10:35→18:19)
--- NOTE | 2021-05-05 10:44 | P.CNS ---
Date of Consult: 05/05/21 Reason for Consult: Respiratory failure Chief Complaint: Respiratory failure History of Present Illness: Patient is 70 years of age with a history of COPD chronic oxygen therapy admitted with hypoxemic hypercapnic respiratory failure patient is intubated hemodynamically stable on a propofol drip has home O2 Allergies No Known Allergies Allergy (Verified 12/07/19 09:23) Home Medications: Cetirizine HCl [Zyrtec] 10 mg PO DAILY 05/05/21 Gabapentin 600 mg PO TID 05/05/21 Levothyroxine [Synthroid*] 50 mcg PO DAILY 05/05/21 Trazodone [Desyrel*] 50 mg PO BEDTIME PRN 05/05/21 - Past Medical/Surgical History Diabetic: No -: COPDon home oxygen -: Hypertension -: Chronic pain -: Major depressive disorder Psychosocial/ Personal History: Unemployed,, lives at home with her - Family History Father History Unknown: Yes - Social History Smoking Status: Unknown if ever smoked Alcohol use: Yes CD- Drugs: No Caffeine use: No Place of Residence: Home Review of Systems is unable to be obtained Physical Examination Temp Pulse Resp BP Pulse Ox 97.6 F 72 20 123/60 100 05/05/21 08:00 05/05/21 09:00 05/05/21 09:00 05/05/21 09:00 05/05/21 09:00 General: Unresponsive Respiratory: Diminished, Expiratory wheezes Cardiovascular: Normal S1 S2, Edema Gastrointestinal: Normal bowel sounds, Soft and benign Laboratory Data (last 24 hrs) 05/04/21 16:19: PT 11.5, INR 1.00 05/04/21 16:19: WBC 6.70, Hgb 13.6, Hct 41.8, Plt Count 340 05/04/21 16:19: Sodium 136, Potassium 4.9, BUN 7, Creatinine 0.82, Glucose 130 H, Magnesium 2.2, Total Bilirubin 0.2, AST 16, ALT 18, Alkaline Phosphatase 76 - Problems (1) Hypercapnic respiratory failure Current Visit: No Status: Acute Plan: Patient is 70 years of age admitted with acute on chronic respiratory failure hypoxic hypercarbia titrate sat down to 90% wean off propofol chest x-ray shows interstitial changes labs reviewed plan to wean off the ventilator patient may qualify for a noninvasive ventilator Qualifiers: Chronicity: acute on chronic Qualified Code(s): J96.22 - Acute and chronic respiratory failure with hypercapnia
--- NOTE | 2021-05-05 10:46 | RAD REPORT ---
EXAM DESCRIPTION: RAD - Chest Single View - 05/05/2021 5:16 am CLINICAL HISTORY: Left picc line placement COMPARISON: None. TECHNIQUE: XR CHEST 1 VIEW 05/05/2021 4:21 AM MICROBIOLOGY QUALITY CONTROL TECHNICIAN FINDINGS: The heart is borderline in size. There are minimal interstitial changes throughout both christopher ngs. There is no pleural effusion. There is no pneumothorax. There are no acute osseous findings. Lef t PICC line tip is in the mid SVC. Endotracheal tube tip is in the midtrachea. NG tube tip is in the stomach. IMPRESSION: Support equipment as described. Electronically signed by: Shubham Saldivar MD 05/05/2021 6:43 AM MICROBIOLOGY QUALITY CONTROL TECHNICIAN Due to temporary technical issues with the PACS/Fluency reporting system, reports are being signed by the in house radiologist without review as a courtesy to ensure prompt reporting. The interpreting r adiologist is fully responsible for the content of the report.
[2021-05-05] MEDS: LORazepam 2 MG/ML VIAL IV PRN ×2 (11:10→15:36)
[2021-05-05] MEDS: D5 0.45 NS 1,000 ML IV SCH (11:11)
--- NOTE | 2021-05-05 11:30 | EKG ---
Test Date: 2021-05-04 Test Time: 21:14:37 User Support Specialist: ANDREW MEASUREMENT RESULTS: Intervals: Rate: 81 IL: 154 QRSD: 64 QT: 354 QTc: 411 [place]: P: 38 IL: 154 QRS: 24 T: 37 INTERPRETIVE STATEMENTS: Sinus rhythm with occasional premature ventricular complexes Low voltage QRS Cannot rule out Anteroseptal infarct, age undetermined Abnormal ECG Compared to ECG 02/17/2021 13:30:17 Ventricular premature complex(es) now present Low QRS voltage now present Myocardial infarct finding still present Electronically Signed On 05-05-21 11:28:55 SINGE WINDER by Vik Sauceda
--- NOTE | 2021-05-05 14:17 | RAD REPORT ---
EXAM DESCRIPTION: CT - Chest Angio - 05/05/2021 1:25 pm CLINICAL HISTORY: sob COMPARISON: None. TECHNIQUE: Dynamically enhanced axial 3 mm thick images of the chest were obtained during administra tion of <100> mL Isovue 370 IV contrast. Coronal and oblique reconstruction images were generated and reviewed. Exam utilizes a protocol for optimal evaluation of pulmonary arterial tree. Maximum intensity projections 3D imaging was utilized All CT scans are performed using dose optimization technique as appropriate and may include automated exposure control or mA/KV adjustment according to patient size. FINDINGS: A pulmonary embolus is not seen. A thoracic aortic aneurysm is not noted. A pleural effusion is not seen. A pericardial effusion is not seen. A lung consolidation is not present. Mild right lower lobe atelectasis Endotracheal tube with its tip several centimeters above the foster in good position. Nasogastric tub e within the proximal stomach IMPRESSION: Negative for a pulmonary embolism.
--- NOTE | 2021-05-05 16:43 | RAD REPORT ---
EXAM DESCRIPTION: USExtrem Venous W Compress Bil05/05/2021 4:27 pm CLINICAL HISTORY: Leg swelling COMPARISON: 2008 FINDINGS: The common femoral, superficial femoral, popliteal and posterior tibial veins bilaterally are compressible and demonstrate augmentation. Doppler demonstrates good flow. IMPRESSION: No evidence of deep venous thrombosis involving either lower extremity.
[2021-05-05] MEDS ORDERED: ENOXAPARIN 100 MG/ML SYR SQ SCH (21:00)
[2021-05-06] MEDS: HYDROMORPHONE HCL 1 MG/ML INJ IV PRN ×3 (00:16→21:44)
[2021-05-06] MEDS: D5 0.45 NS 1,000 ML IV SCH (00:24)
[2021-05-06] MEDS: METHYLPREDNISOLONE 40 MG INJ IV SCH ×3 (00:24→16:34)
[2021-05-06] MEDS: ALBUTEROL 2.5 MG/3 ML NEB SOL NEB SCH ×4 (01:40→19:33)
[2021-05-06] MEDS: IPRATROPIUM BROM 0.5MG/2.5ML NEB SCH ×4 (01:40→19:33)
[2021-05-06] MEDS: propofoL 1,000 MG/100 ML VIAL IV PRN ×4 (02:37→21:05)
[2021-05-06] MEDS: LORazepam 2 MG/ML VIAL IV PRN (02:37)
[2021-05-06 05:36] LABS: Absolute Lymphocytes (CBC) 0.5 K/uL (0.7-4.9); Hematocrit 35.7 % (36.0-45.0); Lymphocytes % 3.9 % (15.3-44.8); MPV 9.5 fL (7.6-11.3); RBC Red Blood Cell Count 3.69 M/uL (3.86-4.86)
[2021-05-06 05:40] LABS: Arterial Blood Carboxyhemoglob 0.8 % (0-1.5); Blood Gas Oxyhemoglobin 88.7 % (94-97); Blood O2 Saturation 90.7 % (92-98.5)
[2021-05-06 05:50] LABS: Albumin 2.6 g/dL (3.4-5.0); Bilirubin Total 0.2 mg/dL (0.2-1.0); Magnesium 2.2 mg/dL (1.8-2.4); Protein, Total 6.1 g/dL (6.4-8.2)
--- NOTE | 2021-05-06 05:58 | P.PN ---
Date of Service: 05/06/21 Subjective: improving No acute events overnight Patient more alert, difficult to wean sedation due to agitation Vent weaning ROS: Unable to be obtained, intubated Physical exam GEN: Intubated, sedated, opens eyes, seems to understand some HEENT: Normal conjunctiva, sclera anicteric CV: Regular rate and rhythm Pulm: Wheeze bilaterally, on vent ABD: Soft, nontender, nondistended Integumentary: No rashes Neuro: Normal speech, normal affect loza in place Problem List Acute on chronic hypoxic, hypercapnic respiratory failure secondary to COPD with exacerbation, hypoventilation syndrome Diabetes mellitus type 2not insulin-dependent Hypertension Hyperlipidemia Chronic pain with neuropathy Continue ICU level care Continue ventilator management, per pulmonary wean as tolerated, possible extubation today Continue nebs, steroids ABG with improved hypercarbia Improving Restart home medications once taking p.o. VTE: Lovenox Code: Full Dispo: Likely home, ~2-3 days Son updated at bedside
[2021-05-06] MEDS: INSULIN -REGULAR HUMAN 50 UNIT/0.5 ML ML SQ SCH ×4 (07:20→21:00)
--- NOTE | 2021-05-06 07:47 | RAD REPORT ---
EXAM DESCRIPTION: RAD - Chest Single View - 05/06/2021 6:55 am CLINICAL HISTORY: vented COMPARISON: Chest Single View dated 05/05/2021; Chest Single View dated 05/04/2021; Chest Single View da nick 05/04/2021; Chest Single View dated 03/07/2021; Chest Angio dated 05/05/2021 FINDINGS: Lines: Endotracheal tube at the aortic arch in satisfactory position. Left subclavian appr oach PICC with tip overlying the SVC. Enteric tube below the diaphragm. Lungs: Basilar opacities are noted bilaterally. Pleural: No significant pleural effusions or pneumothorax. Cardiac: The heart size is within normal limits. Bones: No acute fractures. Other: IMPRESSION: Increased basilar opacities may reflect atelectasis . Support apparatus in stable positi oning.
[2021-05-06] MEDS: FAMOTIDINE 20 MG/2 ML VIAL IV SCH ×2 (08:09→20:32)
[2021-05-06 08:36] LABS: Platelet Estimate ADEQ
[2021-05-06 08:37] LABS: Blood Morphology Comment NOT SEEN (NOT SEEN)
--- NOTE | 2021-05-06 09:31 | P.PN ---
Subjective Date of Service: 05/06/21 Chief Complaint: Respiratory failure Subjective: Improving (Patient's condition is stable improving) Review of Systems is unable to be obtained Physical Examination - Vital Signs Temperature: 97.1 F Blood Pressure: 117/49 Pulse: 79 Respirations: 28 Pulse Ox (%): 95 - Physical Exam General: Unresponsive Respiratory: Clear to auscultation bilaterally, Diminished Cardiovascular: No edema, Regular rate/rhythm Assessment And Plan - Current Problems (Diagnosis) (1) Hypercapnic respiratory failure Current Visit: No Status: Acute Plan: Respiratory failure patient is improving plan to wean off from propofol and from the ventilator labs all reviewed cultures negative chest x-ray no change endotracheal tube satisfactory add some IV antibiotic sputum cultures hemodynamically stable stable Qualifiers: Chronicity: acute on chronic Qualified Code(s): J96.22 - Acute and chronic respiratory failure with hypercapnia
[2021-05-06] MEDS: ENOXAPARIN 40 MG/0.4 ML SQ SCH (10:59)
[2021-05-06] MEDS: Levofloxacin 750mg IV 750 MG/150 ML BAG IV SCH (11:00)
[2021-05-06 19:06] LABS: Urine Appearance TURBID (Clear); Urine Blood 3+ (Negative); Urine Color DK YELLOW (Yellow); Urine Glucose NEGATIVE (Negative); Urine Protein 2+ (Negative); Urine Specific Gravity 1.015 (1.005-1.030)
[2021-05-06 19:24] LABS: Urine Microscopic Reflex ORDER UMIC
[2021-05-06 19:30] LABS: Urine Bacteria 20-50 /HPF (<20); Urine RBC <5 /HPF (NONE SEEN)
[2021-05-06 19:33] LABS: Urine Bilirubin 1+ (Negative)
[2021-05-07] MEDS: propofoL 1,000 MG/100 ML VIAL IV PRN ×3 (00:28→09:02)
[2021-05-07] MEDS: METHYLPREDNISOLONE 40 MG INJ IV SCH ×3 (02:13→16:33)
[2021-05-07] MEDS: IPRATROPIUM BROM 0.5MG/2.5ML NEB SCH ×5 (02:24→19:45)
[2021-05-07] MEDS: ALBUTEROL 2.5 MG/3 ML NEB SOL NEB SCH ×4 (02:24→19:45)
[2021-05-07] MEDS: HYDROMORPHONE HCL 1 MG/ML INJ IV PRN ×6 (03:04→22:45)
[2021-05-07] MEDS: D5 0.45 NS 1,000 ML IV SCH ×3 (03:53→18:23)
[2021-05-07] MEDS: LORazepam 2 MG/ML VIAL IV PRN ×3 (04:20→22:27)
[2021-05-07 05:54] LABS: BUN Blood Urea Nitrogen 12 mg/dL (7-18); Bicarbonate 34 mmol/L (21-32); Glucose Level 144 mg/dL (74-106); Magnesium 2.4 mg/dL (1.8-2.4); Sodium Level 139 mmol/L (136-145)
--- NOTE | 2021-05-07 05:59 | P.PN ---
Date of Service: 05/07/21 Subjective: Patient very agitated/combative when propofol was weaned yesterday Vent settings as have been weaned ROS: Unable to be obtained, intubated Physical exam GEN: Intubated, sedated HEENT: Normal conjunctiva, sclera anicteric CV: Regular rate and rhythm Pulm: Diminished bilaterally at bases, mechanical ventilation ABD: Soft, nontender, nondistended Neuro: Sedated loza in place Problem List Acute on chronic hypoxic, hypercapnic respiratory failure secondary to COPD with exacerbation, hypoventilation syndrome Diabetes mellitus type 2not insulin-dependent Hypertension Hyperlipidemia Chronic pain with neuropathy Continue ICU level care Continue ventilator management, per pulmonary Likely extubation today Continue nebs, steroids ABG with improved hypercarbia Will need to monitor for alcohol withdrawal, review of EMR has noted alcohol dependence/abuse previously. Current status unknown Restart home medications once taking p.o. VTE: Lovenox Code: Full Dispo: Likely home, ~2 days
[2021-05-07] MEDS: INSULIN -REGULAR HUMAN 50 UNIT/0.5 ML ML SQ SCH ×4 (07:28→21:00)
[2021-05-07] MEDS: ENOXAPARIN 40 MG/0.4 ML SQ SCH (07:49)
[2021-05-07] MEDS: FAMOTIDINE 20 MG/2 ML VIAL IV SCH (07:50)
--- NOTE | 2021-05-07 10:04 | P.PN ---
Subjective Date of Service: 05/07/21 Chief Complaint: Respiratory failure Subjective: Improving (Patient's condition is stable continues to remain very agitated at the bedside) Review of Systems is unable to be obtained Physical Examination - Vital Signs Temperature: 97.3 F Blood Pressure: 122/69 Pulse: 67 Respirations: 13 Pulse Ox (%): 99 - Physical Exam General: Unresponsive Respiratory: Clear to auscultation bilaterally, Diminished Cardiovascular: Edema Assessment And Plan - Current Problems (Diagnosis) (1) Hypercapnic respiratory failure Current Visit: No Status: Acute Plan: Respiratory failure condition stable we will plan to wean off propofol and extubate use BiPAP probably chronic respiratory failure may qualify for a noninvasive ventilator patient has home O2 bronchodilators still continues to smoke chest x-ray clear sputum cultures pending Qualifiers: Chronicity: acute on chronic Qualified Code(s): J96.22 - Acute and chronic respiratory failure with hypercapnia
[2021-05-07] MEDS: Levofloxacin 750mg IV 750 MG/150 ML BAG IV SCH (11:51)
[2021-05-07] MEDS: HALOPERIDOL LACT 5 MG/ML INJ IV PRN (21:10)
[2021-05-07] MEDS ORDERED: ZIPRASIDONE MESYLA 20 MG/VIAL IM ONE (21:30)
[2021-05-07] MEDS ORDERED: WATER FOR INJ,STERILE 10 ML IM PRN (21:30)
[2021-05-08] MEDS: METHYLPREDNISOLONE 40 MG INJ IV SCH ×3 (00:37→20:07)
[2021-05-08] MEDS: IPRATROPIUM BROM 0.5MG/2.5ML NEB SCH ×4 (02:00→19:19)
[2021-05-08] MEDS: ALBUTEROL 2.5 MG/3 ML NEB SOL NEB SCH ×4 (02:00→19:19)
[2021-05-08] MEDS: LORazepam 2 MG/ML VIAL IV PRN ×2 (02:50→11:49)
[2021-05-08] MEDS: HYDROMORPHONE HCL 1 MG/ML INJ IV PRN ×3 (05:55→20:08)
--- NOTE | 2021-05-08 06:08 | P.PN ---
Date of Service: 05/08/21 Subjective: Extubated yesterday Agitated overnight, required Geodon ROS: awakens to voice, tired Physical exam GEN: sleeping, received sedative HEENT: Normal conjunctiva, sclera anicteric CV: Regular rate and rhythm Pulm: Diminished bilaterally at bases, on nasal cannula, transmitted upper airway noises ABD: Soft, nontender, nondistended Neuro: Moves all extremities loza in place Problem List Acute on chronic hypoxic, hypercapnic respiratory failure secondary to COPD with exacerbation, hypoventilation syndrome Diabetes mellitus type 2not insulin-dependent Hypertension Hyperlipidemia Chronic pain with neuropathy Continue ICU level care, continue monitor closely Extubated on 05/07, agitated and confused after extubation/night Continue nebs, steroids Nursing bedside swallow today Medication for delirium as needed History of alcohol dependence, family report has not had alcohol in quite some time Restart home medications once taking p.o. VTE: Lovenox Code: Full Dispo: Likely home, ~2 days
[2021-05-08 06:13] LABS: Hematocrit 38.4 % (36.0-45.0); MPV 9.6 fL (7.6-11.3); RBC Red Blood Cell Count 3.98 M/uL (3.86-4.86)
[2021-05-08 06:14] LABS: BUN Blood Urea Nitrogen 12 mg/dL (7-18); Bicarbonate 34 mmol/L (21-32); Glucose Level 114 mg/dL (74-106); Magnesium 2.5 mg/dL (1.8-2.4); Sodium Level 140 mmol/L (136-145)
[2021-05-08] MEDS: D5 0.45 NS 1,000 ML IV SCH ×2 (06:49→23:12)
--- NOTE | 2021-05-08 07:00 | ECHO ---
HEIGHT: 5 ft 4 in WEIGHT: 209 lb 0 oz DATE OF STUDY: 05/05/[address]: Luis A Arteaga MD 2-DIMENSIONAL: YES M.MODE: YES DOPPLER: YES COLOR FLOW: YES TDS: YES PORTABLE: NO DEFINITY: NO BUBBLE STUDY: NO DIAGNOSIS: RESPIRATORY FAILURE CARDIAC HISTORY: CATHERIZATION: SURGERY: PROSTHETIC VALVE: PACEMAKER: MEASUREMENTS (cm) DIASTOLIC (NORMALS) SYSTOLIC (NORMALS) IVSd 1.0 (0.6-1.2) LA Diam (1.9-4.0) LVEF 66% LVIDd 4.3 (3.5-5.7) LVIDs 2.7 (2.0-3.5) %FS 36% LVPWd 1.1 (0.6-1.2) Ao Diam (2.0-3.7) 2 DIMENSIONAL ASSESSMENT: RIGHT ATRIUM: NORMAL LEFT ATRIUM: NORMAL RIGHT VENTRICLE: NORMAL LEFT VENTRICLE: NORMAL TRICUSPID VALVE: NORMAL MITRAL VALVE: MITRAL ANNULAR CALCIFICATION PULMONIC VALVE: NORMAL AORTIC VALVE: NORMAL PERICARDIAL EFFUSION: NONE AORTIC ROOT: NORMAL LEFT VENTRICULAR WALL MOTION: NORMAL. DOPPLER/COLOR FLOW: MILD TRICUSPID REGURGITATION - NORMAL RIGHT VENTRICULAR SYSTOLIC PRESSURE. COMMENTS: MILD TRICUSPID REGURGITATION - NORMAL RIGHT VENTRICULAR SYSTOLIC PRESSURE. MITRAL ANNULAR CALCIFICATION. NORMAL LEFT VENTRICULAR SIZE AND FUNCTION. TECHNOLOGIST: FARIDA LEDEZMA
[2021-05-08] MEDS: INSULIN -REGULAR HUMAN 50 UNIT/0.5 ML ML SQ SCH ×4 (07:30→20:07)
[2021-05-08] MEDS ORDERED: ROCURONIUM 50 MG/5 ML VIAL IV ONE (08:55)
[2021-05-08] MEDS ORDERED: ETOMIDATE 20 MG/10 ML VIAL IV ONE (08:57)
[2021-05-08] MEDS ORDERED: GABAPENTIN 300 MG CAP PO SCH (09:00)
[2021-05-08] MEDS: LEVOTHYROXINE SOD 0.05 MG TABLET PO SCH (09:00)
[2021-05-08] MEDS: Levofloxacin 750mg IV 750 MG/150 ML BAG IV SCH (09:21)
[2021-05-08] MEDS: ENOXAPARIN 40 MG/0.4 ML SQ SCH (09:21)
--- NOTE | 2021-05-08 12:06 | P.PN ---
Subjective Date of Service: 05/08/21 Chief Complaint: COPD exacerbation Patient unresponsive today was extubated yesterday out snoring presumably has obstructive sleep apnea in addition to COPD Review of Systems is unable to be obtained Physical Examination - Vital Signs Temperature: 96.9 F Blood Pressure: 142/77 Pulse: 93 Respirations: 17 Pulse Ox (%): 97 - Physical Exam General: Delirious, Unresponsive Respiratory: Clear to auscultation bilaterally, Normal air movement Cardiovascular: No edema, Regular rate/rhythm Assessment And Plan - Current Problems (Diagnosis) (1) Hypercapnic respiratory failure Current Visit: No Status: Acute Plan: Patient extubated yesterday currently stable DC antibiotics arterial blood gases BiPAP as needed white count is normal labs medication list reviewed Qualifiers: Chronicity: acute on chronic Qualified Code(s): J96.22 - Acute and chronic respiratory failure with hypercapnia
[2021-05-08] MEDS: HALOPERIDOL LACT 5 MG/ML INJ IV PRN ×2 (12:47→20:41)
[2021-05-08 12:55] LABS: Blood Gas Oxyhemoglobin 94.1 % (94-97); Blood O2 Saturation 96.4 % (92-98.5)
[2021-05-08] MEDS ORDERED: DEXMEDETOMIDINE HCL 200 MCG in NA CHLORIDE 0.9% 98 ML IV SCH ×4 (14:00)
[2021-05-09] MEDS: IPRATROPIUM BROM 0.5MG/2.5ML NEB SCH ×4 (00:45→19:11)
[2021-05-09] MEDS: ALBUTEROL 2.5 MG/3 ML NEB SOL NEB SCH ×4 (00:45→19:11)
[2021-05-09] MEDS: HYDROMORPHONE HCL 1 MG/ML INJ IV PRN ×5 (04:16→22:24)
[2021-05-09 05:11] VITALS: BMI 35.5
[2021-05-09 05:37] LABS: BUN Blood Urea Nitrogen 15 mg/dL (7-18); Bicarbonate 34 mmol/L (21-32); Glucose Level 177 mg/dL (74-106); Magnesium 2.5 mg/dL (1.8-2.4); Potassium 4.2 mmol/L (3.5-5.1); Sodium Level 140 mmol/L (136-145)
[2021-05-09] MEDS: INSULIN -REGULAR HUMAN 50 UNIT/0.5 ML ML SQ SCH ×4 (07:30→20:14)
[2021-05-09] MEDS: D5 0.45 NS 1,000 ML IV SCH ×2 (08:08→21:28)
[2021-05-09] MEDS: LEVOTHYROXINE SOD 0.05 MG TABLET PO SCH (08:12)
[2021-05-09] MEDS: METHYLPREDNISOLONE 40 MG INJ IV SCH ×2 (08:12→20:14)
[2021-05-09] MEDS: ENOXAPARIN 40 MG/0.4 ML SQ SCH (08:12)
[2021-05-09] MEDS: HALOPERIDOL LACT 5 MG/ML INJ IV PRN ×2 (14:33→21:47)
[2021-05-09] MEDS ORDERED: WATER FOR INJ,STERILE 10 ML IM PRN (15:18)
[2021-05-09] MEDS ORDERED: ZIPRASIDONE MESYLA 20 MG/VIAL IM ONE (16:00)
--- NOTE | 2021-05-09 16:11 | P.PN ---
Subjective Date of Service: 05/09/21 Chief Complaint: COPD exacerbation Patient was seen initially sleeping quietly on Precedex drip this morning. Precedex drip weaned off but she became agitated and pulled out her PICC line. Her oxygen saturation is 99% on 2 L O2. Asked nurse to try her on room air. Physical Examination - Vital Signs Temperature: 98.0 F Blood Pressure: 135/70 Pulse: 101 Respirations: 24 Pulse Ox (%): 92 Assessment And Plan - Plan Physical exam GEN: Sedated with Precedex drip HEENT: Normal conjunctiva, sclera anicteric CV: Regular rate and rhythm Pulm: Diminished bilaterally at bases, no rales or crackles. ABD: Soft, nontender, nondistended Neuro: Moves all extremities loza in place Problem List Acute on chronic hypoxic, hypercapnic respiratory failure secondary to COPD with exacerbation, hypoventilation syndrome Diabetes mellitus type 2not insulin-dependent Hypertension Hyperlipidemia Chronic pain with neuropathy Continue ICU level care. Trial of room air Continue nebs, steroids Nursing staff report patient is eating well. Advance diet as tolerated Haldol and Geodon as needed for agitation. Watch for alcohol withdrawal symptoms. Restart home medications once taking p.o. VTE: Lovenox Code: Full
[2021-05-09] MEDS ORDERED: DEXMEDETOMIDINE HCL 200 MCG in NA CHLORIDE 0.9% 98 ML IV SCH (17:00)
[2021-05-10] MEDS: HALOPERIDOL LACT 5 MG/ML INJ IV PRN (01:18)
[2021-05-10] MEDS: IPRATROPIUM BROM 0.5MG/2.5ML NEB SCH ×4 (01:24→19:18)
[2021-05-10] MEDS: ALBUTEROL 2.5 MG/3 ML NEB SOL NEB SCH ×2 (01:24→08:00)
[2021-05-10 04:57] LABS: Absolute Lymphocytes (CBC) 0.5 K/uL (0.7-4.9); Hematocrit 36.9 % (36.0-45.0); Lymphocytes % 7.5 % (15.3-44.8); MPV 9.2 fL (7.6-11.3); RBC Red Blood Cell Count 3.93 M/uL (3.86-4.86)
[2021-05-10 05:14] LABS: BUN Blood Urea Nitrogen 15 mg/dL (7-18); Bicarbonate 32 mmol/L (21-32); Glucose Level 116 mg/dL (74-106); Sodium Level 139 mmol/L (136-145)
[2021-05-10] MEDS: INSULIN -REGULAR HUMAN 50 UNIT/0.5 ML ML SQ SCH ×4 (07:30→21:00)
[2021-05-10] MEDS ORDERED: ALBUTEROL 2.5 MG/3 ML NEB SOL NEB PRN (08:23)
--- NOTE | 2021-05-10 08:23 | P.PN ---
Subjective Date of Service: 05/10/21 Chief Complaint: COPD exacerbation Patient doing well was extubated yesterday little disoriented Review of Systems Respiratory: Shortness of Breath Physical Examination - Vital Signs Temperature: 97.2 F Blood Pressure: 150/85 Pulse: 96 Respirations: 18 Pulse Ox (%): 96 - Physical Exam General: Cooperative Respiratory: Clear to auscultation bilaterally, Diminished Cardiovascular: No edema, Regular rate/rhythm - Studies Microbiology Data (last 24 hrs): 05/04/21 16:19 Blood - Blood Aerobic Blood Culture - Final No growth in 5 days. 05/04/21 16:19 Blood - Blood Anaerobic Blood Culture - Final No growth in 5 days. 05/04/21 16:09 Blood - Blood Aerobic Blood Culture - Final No growth in 5 days. 05/04/21 16:09 Blood - Blood Anaerobic Blood Culture - Final No growth in 5 days. Assessment And Plan - Current Problems (Diagnosis) (1) Hypercapnic respiratory failure Current Visit: No Status: Resolved Plan: Patient extubated yesterday currently stable DC antibiotics arterial blood gases BiPAP as needed white count is normal labs medication list reviewed Qualifiers: Chronicity: acute on chronic Qualified Code(s): J96.22 - Acute and chronic respiratory failure with hypercapnia (2) COPD exacerbation Onset Date: 06/24/14 Current Visit: No Status: Acute Plan: Patient admitted with COPD exacerbation doing well little disoriented I suspect she is chronic hypoxic hypercapnic respiratory failure we will try and set her up for a noninvasive ventilator at home we have the severity of her situation BiPAP will not be indicated patient will need a long-acting bronchodilator at home [facility] prednisone can be transferred to the floor evaluate for discharge
[2021-05-10] MEDS: ENOXAPARIN 40 MG/0.4 ML SQ SCH (08:33)
[2021-05-10] MEDS: LEVOTHYROXINE SOD 0.05 MG TABLET PO SCH (08:33)
[2021-05-10] MEDS: predniSONE 20 MG TAB PO SCH ×2 (08:33→20:58)
[2021-05-10] MEDS: DULERA 200/5 (MOMETASONE/FORMOTEROL) INHALER IH SCH ×2 (08:34→20:58)
[2021-05-10] MEDS ORDERED: HOME MED 1 EA UNK (Cetirizine Hcl [Zyrtec] 10 MG Capsule) PO SCH (09:00)
[2021-05-10] MEDS ORDERED: CETIRIZINE HCL 5 MG TABLET PO SCH (09:00)
[2021-05-10] MEDS: HYDROMORPHONE HCL 1 MG/ML INJ IV PRN (09:44)
[2021-05-10] MEDS: TRAMADOL HCL 50 MG TAB PO PRN (11:09)
[2021-05-10] MEDS: ALBUTEROL 2.5 MG/3 ML NEB SOL NEB PRN (19:18)
[2021-05-11] MEDS: TRAMADOL HCL 50 MG TAB PO PRN ×2 (01:00→08:47)
[2021-05-11] MEDS: IPRATROPIUM BROM 0.5MG/2.5ML NEB SCH ×4 (01:42→19:35)
[2021-05-11] MEDS: ALBUTEROL 2.5 MG/3 ML NEB SOL NEB PRN ×3 (01:42→14:40)
[2021-05-11] MEDS: LEVOTHYROXINE 0.05 MG PO SCH (05:56)
[2021-05-11] MEDS: INSULIN -REGULAR HUMAN 50 UNIT/0.5 ML ML SQ SCH ×4 (07:30→21:00)
[2021-05-11] MEDS: ENOXAPARIN 40 MG/0.4 ML SQ SCH (08:48)
[2021-05-11] MEDS: CETIRIZINE HCL 10 MG PO SCH (08:49)
[2021-05-11] MEDS: predniSONE 20 MG TAB PO SCH ×2 (08:55→20:59)
[2021-05-11] MEDS: DULERA 200/5 (MOMETASONE/FORMOTEROL) INHALER IH SCH ×2 (09:00→21:00)
--- NOTE | 2021-05-11 13:18 | P.PN ---
Subjective Date of Service: 05/11/21 Chief Complaint: COPD exacerbation No agitation reported. Patient is awake and interactive but pleasantly confused. She is tolerating oxygen by nasal cannula. Physical Examination - Vital Signs Temperature: 98.3 F Blood Pressure: 143/76 Pulse: 91 Respirations: 20 Pulse Ox (%): 96 Assessment And Plan - Plan Physical exam GEN: Awake, confused, not in acute distress. HEENT: Sclera anicteric CV: Regular rate and rhythm Pulm: Diminished bilaterally at bases, no rales or crackles. ABD: Soft, nontender, nondistended Neuro: No focal motor deficit Genitourinary: Lo catheter. Problem List Acute on chronic hypoxic, hypercapnic respiratory failure secondary to COPD with exacerbation, hypoventilation syndrome Diabetes mellitus type 2not insulin-dependent Hypertension Hyperlipidemia Chronic pain with neuropathy Wean oxygen as tolerated Continue nebs, steroids (on oral prednisone) Patient with chronic hypercapnic respiratory failure and obesity hypoventilation. Pulmonary is arranging for home NIV. Advance diet as tolerated Haldol and Geodon as needed for agitation. No symptoms of alcohol withdrawal. VTE: Lovenox Code: Full Disposition: I am told prefers patient to be discharged to home and he declined facility placement.
[2021-05-12] MEDS: IPRATROPIUM BROM 0.5MG/2.5ML NEB SCH ×2 (01:35→08:05)
[2021-05-12] MEDS: LEVOTHYROXINE 0.05 MG PO SCH (06:14)
[2021-05-12 06:37] LABS: Absolute Lymphocytes (CBC) 1.3 K/uL (0.7-4.9); Hematocrit 39.9 % (36.0-45.0); Lymphocytes % 22.4 % (15.3-44.8); MPV 9.4 fL (7.6-11.3); RBC Red Blood Cell Count 4.22 M/uL (3.86-4.86)
[2021-05-12] MEDS: INSULIN -REGULAR HUMAN 50 UNIT/0.5 ML ML SQ SCH ×2 (07:30→11:30)
[2021-05-12] MEDS: ALBUTEROL 2.5 MG/3 ML NEB SOL NEB PRN (08:05)
[2021-05-12 08:16] LABS: BUN Blood Urea Nitrogen 16 mg/dL (7-18); Bicarbonate 32 mmol/L (21-32); Glucose Level 104 mg/dL (74-106); Sodium Level 140 mmol/L (136-145)
[2021-05-12 08:17] LABS: Potassium 3.9 mmol/L (3.5-5.1)
[2021-05-12] MEDS: DULERA 200/5 (MOMETASONE/FORMOTEROL) INHALER IH SCH (09:00)
[2021-05-12] MEDS: CETIRIZINE HCL 10 MG PO SCH (09:00)
[2021-05-12] MEDS: predniSONE 20 MG TAB PO SCH (09:34)
[2021-05-12] MEDS: ENOXAPARIN 40 MG/0.4 ML SQ SCH (09:34)
[2021-05-12 09:43] VITALS: O2SAT 95
[2021-05-12 10:56] LABS: Arterial Blood Carboxyhemoglob 1.2 % (0-1.5); Blood Gas Oxyhemoglobin 87.8 % (94-97); Blood O2 Saturation 90.1 % (92-98.5)
[2021-05-12] MEDS ORDERED: POTASSIUM 25 MEQ EFFERV TAB PO ONE (11:03)
--- NOTE | 2021-05-12 11:09 | P.DS ---
Admission Date: 05/04/21 Discharge Date: 05/12/21 Disposition: DC HOME/HOME HEALTH CARE Discharge Condition: FAIR Reason for Admission: COPD exacerbation Brief History of Present Illness: History of Present Illness: 70-year-old female with history of COPD on chronic home oxygen therapy presented to the emergency department unresponsive. Patient was transported by EMS who found her hypoxic while on her home oxygen with very long tubing with saturations in the 70s to 80s. Upon arrival to the emergency room and patient was intubated. Initial blood gas demonstrated hypercapnic respiratory failure, also noted moderate elevation in BNP chest x-ray demonstrated good placement of ET tube. Patient admitted to ICU for acute on chronic hypercapnic respiratory failure. Hospital Course: Problem List Acute on chronic hypoxic, hypercapnic respiratory failure secondary to COPD with exacerbation, hypoventilation syndrome Diabetes mellitus type 2not insulin-dependent Hypertension Hyperlipidemia Chronic pain with neuropathy Patient admitted to the ICU and started on aggressive bronchodilator therapy, IV steroid and IV antibiotics. He was seen in consultation by pulmonary. Patient was kept intubated for days and subsequently weaned to BiPAP. She was somehow agitated and confused after extubation and this lingered for a couple of days. She needed Haldol, Geodon and Ativan as needed for agitation. Patient eventually tolerated low-flow oxygen by nasal cannula. Patient more awake today, communicating meaningfully. Not in respiratory distress. Patient desires to go home today, arterial blood gas on room air shows mild CO2 retention and mild hypoxia. Patient deemed stable for discharge per pulmonary. Pulmonary-Dr. Arteaga and social contact worker making arrangements for NIV at home. She is prescribed long-acting inhaler and low-dose prednisone per pulmonary recommendation. Vital Signs/Physical Exam: Temp Pulse Resp BP Pulse Ox 97.2 F 84 20 164/81 H 92 05/12/21 07:46 05/12/21 07:46 05/12/21 07:46 05/12/21 07:46 05/12/21 07:46 General: Alert, In no apparent distress, Obese HEENT: Mucous membr. moist/pink Neck: JVD not distended Respiratory: Diminished (Bilateral) Cardiovascular: Regular rate/rhythm, Normal S1 S2, Edema (Legs) Gastrointestinal: Normal bowel sounds, Non-distended, No tenderness Musculoskeletal: No clubbing, No swelling Integumentary: No rashes Neurological: Other (No focal motor deficit.) Laboratory Data at Discharge: WBC 5.90 K/uL (4.3-10.9) 05/12/21 06:22 Hgb 13.1 g/dL (12.0-15.0) 05/12/21 06:22 Hct 39.9 % (36.0-45.0) 05/12/21 06:22 Plt Count 228 K/uL (152-406) 05/12/21 06:22 PT 11.5 SECONDS (9.5-12.5) 05/04/21 16:19 INR 1.00 05/04/21 16:19 APTT 35.8 SECONDS (24.3-36.9) 05/05/21 04:59 Sodium 140 mmol/L (136-145) 05/12/21 06:22 Potassium 3.9 mmol/L (3.5-5.1) 05/12/21 06:22 BUN 16 mg/dL (7-18) 05/12/21 06:22 Creatinine 0.63 mg/dL (0.55-1.3) 05/12/21 06:22 Glucose 104 mg/dL (74-106) 05/12/21 06:22 Magnesium 2.5 mg/dL (1.8-2.4) H 05/09/21 04:30 Total Bilirubin 0.2 mg/dL (0.2-1.0) 05/06/21 05:00 AST 10 U/L (15-37) L 05/06/21 05:00 ALT 13 U/L (12-78) 05/06/21 05:00 Alkaline Phosphatase 50 U/L (45-117) 05/06/21 05:00 Home Medications: Cetirizine HCl [Zyrtec] 10 mg PO DAILY 05/05/21 Levothyroxine [Synthroid*] 50 mcg PO DAILY 05/05/21 Gabapentin 300 mg PO BEDTIME #30 05/12/21 Mometasone/Formoterol [Dulera 200 Mcg/5 Mcg Inhaler] 2 puff IH BID #1 inhaler 05/12/21 predniSONE [Deltasone*] 10 mg PO DAILY #70 tab 05/12/21 New Medications: predniSONE [Deltasone*] 10 mg PO DAILY #70 tab Mometasone/Formoterol [Dulera 200 Mcg/5 Mcg Inhaler] 2 puff IH BID #1 inhaler Gabapentin 300 mg PO BEDTIME #30 Followup: OOTJANEL [Primary Care Provider] - Time spent managing pt's care (in minutes): 38
[2021-05-12 11:58] VITALS: BP 131/69; TEMP 97.4
== END 2021-05-12 13:28 | disposition home health service (06) | DRG 208 ==
LOC: ER 15:55 → ERHOLD 18:32 → 3RD-ICU 20:54 → 2ND 05-10 17:30
PROVIDERS: ADMIT Hospitalist; ATTEND Hospitalist
PROC: 0BH17EZ Insertion of Endotracheal Airway into Trachea, Via Natural or Artificial Opening (ICD-10-PCS; principal; 2021-05-04)
PROC: 5A1945Z Respiratory Ventilation, 24-96 Consecutive Hours (ICD-10-PCS; 2021-05-04)
PROC: 02HV33Z Insertion of Infusion Device into Superior Vena Cava, Percutaneous Approach (ICD-10-PCS; 2021-05-05)
DX: J44.1 Chronic obstructive pulmonary disease with (acute) exacerbation (principal); J96.22 Acute and chronic respiratory failure with hypercapnia; J96.21 Acute and chronic respiratory failure with hypoxia; E66.2 Morbid (severe) obesity with alveolar hypoventilation; G93.40 Encephalopathy, unspecified; I10 Essential (primary) hypertension; E78.5 Hyperlipidemia, unspecified; G89.29 Other chronic pain; G62.9 Polyneuropathy, unspecified; Z68.35 Body mass index [BMI] 35.0-35.9, adult; E11.9 Type 2 diabetes mellitus without complications; Z99.81 Dependence on supplemental oxygen; Z20.822 Contact with and (suspected) exposure to COVID-19
CPT/HCPCS: 0241U; 31500; 36415; 36569; 51702; 70450; 71045; 71275; 80048; 80053; 80076; 80307; 80320; 80329; 81003; 81015; 82140; 82805; 82947; 83036; 83605; 83735; 83880; 84145; 84484; 85025; 85027; 85610; 85730; 87040; 87086; 87088; 93005; 93306; 93970; 94002; 94003; 94640; 94660; 96361; 96365; 96375; 99285; J1170; J1630; J1650; J2250; J2543; J2704; J2920; J2930; J3486; J7030; J7512; J7606; J7799; Q9967

== ENCOUNTER 2021-08-19 11:48 | Emergency (ER) | payer OTHER ==
--- OUTSIDE RECORDS SUMMARY | 2021-08-19 11:51 | XMS REPORT | Continuity of Care Document ---
:1950 Author Organization [facility] t Address [address] [place] [address] [address] [place] [address] Care Team Providers Name Role Phone Anh Barrera Attending Clinician Unavailable Dior GLOVER, S Attending Clinician Syed RADER Attending Clinician Unavailable [...] rs active active ity of problems problems [facility] Allergies, Adverse Reactions, Alerts Allergy Allergy Status Severity Reaction(s) Onset Inactive Treating Comm ents Source Name Type Date Date Clinician NO KNOWN Drug Active Univers ALLERGIE Class ity of S [facility] Social History Social Habit Start Date Stop Date Quantity Comments Source History SDAK University o f Alcohol Std [place] [facility] Drinks Branch History SDAK University o f Alcohol Binge [place] [facility] Exposure to Not sure University of SARS-CoV-2 [place] [facility] (event) [facility] Tobacco use and 2020-10-14 2020-10-14 Never used Universit y of exposure 00:00:00 00:00:00 [facility] Branch Alcohol intake 2020-10-14 2020-10-14 Lifetime University of 00:00:00 00:00:00 non-drinker [place] [facility] (finding) Branch History SDOH 2020-10-14 2020-10-14 1 University o f Alcohol Frequency 00:00:00 00:00:00 [facility] Sex Assigned At [birth year] Universit y of 00:00:00 00:00:00 [facility] Smoking Status Start Date Stop Date Source [facility] [place] [facility] [place] Never smoker [facility] Medications Ordered Filled Start Stop Current Ordering Indication Dosage Frequency Signature Comments Components Source Medication Medication Date Date Medication? Clinician (SIG) Name Name triamcinolo 2020- No [id number] 40mg Univers ne 10-14 ity of acetonide 17:00: 15:50 [place] (KENALOG) 00 :00 Medical injection Branch 40 mg triamcinolo 2020- No [id number] 40mg Univers ne 10-14 ity of acetonide 17:00: 15:49 [place] (KENALOG) 00 :00 Medical injection Branch 40 mg triamcinolo 2020- No [id number] 40mg 40 mg, Univers ne 10-14 Intramuscu ity of acetonide 17:00: 15:49 [place] 00 :00 1 dose, Medical injection Fri Branch 40 mg 10/14/20 at 1200, Routine triamcinolo 2020- No [id number] 40mg 40 mg, Univers ne 10-14 Intramuscu ity of acetonide 17:00: 15:50 [place] 00 :00 1 dose, Medical injection Fri Branch 40 mg 10/14/20 at 1200, Routine triamcinolo 2020- No [id number] 40mg Univers ne 10-14 ity of acetonide 17:00: 15:50 [place] (KENALOG) 00 :00 Medical injection Branch 40 mg triamcinolo 2020- No [id number] 40mg Univers ne 10-14 ity of acetonide 17:00: 15:49 [place] (KENALOG) 00 :00 Medical injection Branch 40 mg triamcinolo 2020- No [id number] 40mg 40 mg, Univers ne 10-14 Intramuscu ity of acetonide 17:00: 15:49 [place]CE, [place] ([place] 00 :00 1 dose, Medical injection Fri Branch 40 mg 10/14/20 at 1200, Routine triamcinolo 2020-0 1- No [id number] 40mg 40 mg, Univers ne 10-14 Intramuscu [...] %) 00 Medical nebulizer Branch solution TRELEGY 2020-0 Yes Univers ELLIPTA 7-29 ity of 100-62.5-25 00:00: [place] mcg DsDv 00 Medical Branch gabapentin 2020-0 Yes Univers 300 mg 7-29 ity of capsule 00:00: [place] 00 Medical Branch ipratropium 2020-0 Yes Univer s 0.02 % 7-29 ity of nebulizer 00:00: [place] solution 00 Medical Branch albuterol 2021-0 Yes Univers 2.5 mg /3 7-29 ity [...] 50 mcg 6-07 ity of tablet 00:00: [place] 00 Medical Branch DULoxetine 2021-0 Yes Univers 60 mg 6-07 ity of capsule 00:00: [place] [facility] atorvastati 2020-0 Yes Univer s n 40 mg 6-07 ity of tablet 00:00: [place] [facility] levothyroxi 2020-0 Yes Univer s ne 50 mcg 6-07 ity of tablet 00:00: [place] [facility] DULoxetine 1-0 Yes Univers 60 mg 6-07 ity of capsule 00:00: [place] [facility] atorvastati 2020-0 Yes Univer s n 40 mg 6-07 ity of tablet 00:00: [place] [facility] levothyroxi 2020-0 Yes Univer s ne 50 mcg 6-07 ity of tablet 00:00: [place] [facility] DULoxetine 2020-0 Yes Univers 60 mg 6-07 ity of capsule 00:00: [place] [facility] atorvastati 2020-0 Yes Univer s n 40 mg 6-07 ity of tablet 00:00: [place] [facility] levothyroxi 2020-0 Yes Univer s ne 50 mcg 6-07 ity of tablet 00:00: [place] [address] Medical Branch DULoxetine 2020-0 Yes Univers 60 mg 6-07 ity of capsule 00:00: [place] [facility] atorvastati 2020-0 Yes Univer s n 40 mg 6-07 ity of tablet 00:00: [place] [facility] levothyroxi 2020-0 Yes Univer s ne 50 mcg 6-07 ity of tablet 00:00: [place] [facility] potassium 2021-0 Yes Univers chloride 10 6-05 ity of mEq CR 00:00: [place] tablet 00 Medical Branch lisinopriL 1-0 Yes Univers 20 mg 6-05 ity of tablet 00:00: [place] [address] Medical Branch potassium 2021-0 Yes Univers chloride 10 6-05 ity of mEq CR 00:00: [place] tablet 00 Medical Branch lisinopriL 2021-0 Yes Univers 20 mg 6-05 ity of tablet 00:00: [place] [address] Medical Branch potassium 2021-0 Yes Univers chloride 10 6-05 ity of mEq CR 00:00: [place] tablet 00 Medical Branch lisinopriL 2020-0 Yes Univers 20 mg 6-05 ity of tablet 00:00: [place] [address] [facility] potassium 2020-0 Yes Univers chloride 10 6-05 ity of mEq CR 00:00: [place] tablet 00 [facility] Branch lisinopriL 2020-0 Yes Univers 20 mg 6-05 ity of tablet 00:00: [place] [address] [facility] potassium 2020-0 Yes Univers chloride 10 6-05 ity of mEq CR 00:00: [place] tablet [address] [facility] lisinopriL 2020-0 Yes Univers 20 mg 6-05 ity of tablet 00:00: [place] [address] [facility] Macrobid Macrobid 2019-0 2020- No Na Barrera 1 capsule Common 08-05 with food Spirit 00:00: 00:00 - [facility] 00 :00 [facility] Vital Signs Vital Name Observation Time Observation Value Comments Source Body height 2020-10-14 15:20:00 157.5 cm [facility] Body weight 2020-10-14 15:20:00 106.595 kg [facility] BMI 2020-10-14 15:20:00 42.98 kg/m2 [facility] Procedures Procedure Date / Time Performed Performing Clinician Faisal e XR KNEE 3 VW BILATERAL 2020-10-14 15:09:03 [facility] ASSIGNMENT OF BENEFITS 2020-10-14 14:47:40 Doctor Unassigned, No [facility] Encounters Start End Encounter Admission Attending Care Care Encounter Source Date/Time Date/Time Type Type Clinicians Facility Department ID 2021-08-15 Outpatient Barrera, Na STLMLC STLMLC [id number] Common 10:25:00 [facility] 2021-07-05 Outpatient Barrera, Na STLMLC STLMLC [id number] Common 14:12:01 [facility] 2021-06-27 Outpatient Barrera, Na STLMLC STLMLC [id number] 2 Common 09:59:00 [facility] 2021-06-07 Outpatient Barrera, Na STLMLC STLMLC [id number] 2 Common 15:30:01 [facility] 2021-05-04 Outpatient Barrera, Na STLMLC STLMLC [id number] 2 Common 09:33:01 [facility] 2021-03-31 Outpatient Barrera, Na STLMLC STLMLC [id number] 2 Common 12:05:00 [facility] 2021-03-29 Outpatient Barrera, Na STLMLC STLMLC [id number] Common 14:32:33 [facility] 2021-03-29 Outpatient Barrera, Na STLMLC STLMLC [id number] Common 13:38:02 [id number] [facility] 2021-03-29 Outpatient Barrera, Na STLMLC STLMLC [id number] Common 13:32:46 [id number] [facility] 2021-03-29 Outpatient Barrera, Na STLMLC STLMLC [id number] 2 Common 13:30:24 [id number] [facility] 2021-03-29 Outpatient Barrera, Na STLMLC STLMLC [id number] Common 13:28:10 [id number] [facility] 2021-03-29 Outpatient Barrera, Na STLMLC STLMLC [id number] 2 Common 13:18:02 [id number] [facility] 2021-03-29 Outpatient Barrera, Na STLMLC STLMLC [id number] Common 12:24:39 [id number] [facility] 2021-03-29 Outpatient Barrera, Na STLMLC STLMLC [id number] 2 Common 12:21:13 [id number] [facility] 2021-03-29 Outpatient Barrera, Na STLMLC STLMLC [id number] 2 Common 12:08:19 [id number] [facility] 2021-03-29 Outpatient Barrera, Na STLMLC STLMLC [id number] 2 Common 12:03:10 [id number] [facility] 2021-03-29 Outpatient Barrera, Na STLMLC STLMLC [id number] 2 Common 11:56:37 [id number] [facility] 2021-03-29 Outpatient Barrera, Na STLMLC STLMLC [id number] 2 Common 11:56:07 [id number] [facility] 2021-03-29 Outpatient Barrera, Na STLMLC STLMLC [id number] 2 Common 11:55:44 [id number] [facility] 2021-03-29 Outpatient Barrera, Na STLMLC STLMLC [id number] 2 Common 11:17:10 [id number] [facility] 2021-03-29 Outpatient Barrera, Na STLMLC STLMLC [id number] 2 Common 11:06:23 [id number] [facility] 2021-03-29 Outpatient Barrera, Na STLMLC STLMLC [id number] 2 Common 10:58:22 [id number] [facility] 2021-08-18 2021-08-18 ambulatory STLMLC STLMLC [id number] Common 00:00:00 00:00:00 [facility] 2021-08-16 2021-08-16 ambulatory STLMLC STLMLC [id number] Common 00:00:00 00:00:00 [facility] 2021-08-15 2021-08-15 ambulatory STLMLC STLMLC [id number] Common 00:00:00 00:00:00 [facility] 2021-08-08 2021-08-08 ambulatory STLMLC STLMLC [id number] Common 00:00:00 00:00:00 [facility] 2021-07-05 2021-07-05 ambulatory STLMLC STLMLC [id number] Common 00:00:00 00:00:00 [facility] 2021-07-03 2021-07-03 ambulatory STLMLC STLMLC [id number] Common 00:00:00 00:00:00 [facility] 2021-06-28 2021-06-28 ambulatory STLMLC STLMLC [id number] Common 00:00:00 00:00:00 [facility] 2021-06-21 2021-06-21 ambulatory STLMLC STLMLC [id number] Common 00:00:00 00:00:00 [facility] 2021-06-20 2021-06-20 ambulatory STLMLC STLMLC [id number] Common 00:00:00 00:00:00 [facility] 2021-06-07 2021-06-07 ambulatory STLMLC STLMLC [id number] Common 00:00:00 00:00:00 [facility] 2021-06-01 2021-06-01 ambulatory STLMLC STLMLC [id number] Common 00:00:00 00:00:00 [facility] 2021-06-01 2021-06-01 ambulatory STLMLC STLMLC [id number] Common 00:00:00 00:00:00 [facility] 2021-06-01 2021-06-01 ambulatory STLMLC STLMLC [id number] Common 00:00:00 00:00:00 [facility] 2021-05-22 2021-05-22 ambulatory STLMLC STLMLC [id number] Common 00:00:00 00:00:00 [facility] 2021-05-05 2021-05-05 ambulatory STLMLC STLMLC [id number] Common 00:00:00 00:00:00 [facility] 2021-04-24 2021-04-24 ambulatory STLMLC STLMLC [id number] Common 00:00:00 00:00:00 [facility] 2021-04-24 2021-04-24 ambulatory STLMLC STLMLC [id number] Common 00:00:00 00:00:00 [facility] 2021-04-18 2021-04-18 ambulatory STLMLC STLMLC [id number] Common 00:00:00 00:00:00 [facility] 2021-04-07 2021-04-07 ambulatory STLMLC STLMLC [id number] Common 00:00:00 00:00:00 [facility] 2021-04-07 2021-04-07 ambulatory STLMLC STLMLC [id number] Common 00:00:00 00:00:00 [facility] 2021-03-31 2021-03-31 ambulatory STLMLC STLMLC [id number] Common 00:00:00 00:00:00 [facility] 2021-03-28 2021-03-28 ambulatory STLMLC STLMLC [id number] Common 00:00:00 00:00:00 [facility] 2021-03-17 2021-03-17 ambulatory STLMLC STLMLC [id number] Common 00:00:00 00:00:00 [facility] 2021-03-16 2021-03-16 ambulatory STLMLC STLMLC [id number] Common 00:00:00 00:00:00 [facility] 2021-03-16 2021-03-16 ambulatory STLMLC STLMLC [id number] Common 00:00:00 00:00:00 [facility] 2021-03-13 2021-03-13 ambulatory STLMLC STLMLC [id number] Common 00:00:00 00:00:00 [facility] 2021-03-10 2021-03-10 ambulatory STLMLC STLMLC [id number] Common 00:00:00 00:00:00 [facility] 2020-10-14 2020-10-14 [facility] [id number] Univers 09:51:55 23:59:00 Encounter Shonda Lynch [place] [id number] ity of [place] [id number] [facility] [id number] [facility] [address] [place] 2020-10-14 2020-10-14 [facility] [id number] Univers 10:14:41 11:07:28 Visit [facility] [id number] it y of Surgical [id number] Yaya as [facility] [id number] Ca dical es [address] [facility] 2020-10-14 2020-10-14 [facility]patient [facility] [id number] Univers 00:00:00 00:00:00 SHONDA [id number] ity [facility] 2020-10-14 2020-10-14 [facility] [id number] Univers 00:00:00 00:00:00 SHONDA dalal [facility] 2020-10-14 2020-10-14 Orders Doctor VASYL [id number] Univers 00:00:00 00:00:00 Only Unassigned, NIKOLE [id number] [facility] [id number] [facility] [id number] [address] 2020-10-07 2020-10-07 Outpatient Send[facility] [id number] Univers 08:30:00 08:30:00 [facility] 2020-10[facility]03 2020-10-03 Outpatient STLMLC STLMLC [id number] Common 00:00:00 00:00:00 [facility] 2020-09-27 2020-09-27 Outpatient STLMLC STLMLC [id number] Common 00:00:00 00:00:00 [facility] 2020-09-27 2020-09-27 Outpatient STLMLC STLMLC [id number] Common 00:00:00 00:00:00 [facility] 2020-08-24 2020-08-24 Outpatient STLMLC STLMLC [id number] Common 00:00:00 00:00:00 [facility] 2020-08-24 2020-08-24 Outpatient STLMLC STLMLC [id number] Common 00:00:00 00:00:00 [facility] 2020-03-30 2020-03-30 Outpatient STLMLC STLMLC [id number] Common 00:00:00 00:00:00 [facility] 2020-02-08 2020-02-08 Outpatient STLMLC STLMLC [id number] Common 00:00:00 00:00:00 [facility] 2019-12-28 2019-12-28 Outpatient STLMLC STLMLC [id number] Common 00:00:00 00:00:00 [facility] 2019-12-21 2019-12-21 Outpatient STLMLC STLMLC [id number] Common 00:00:00 00:00:00 [facility] 2019-12-21 2019-12-21 Outpatient STLMLC STLMLC [id number] Common 00:00:00 00:00:00 [facility] 2019-12-14 2019-12-14 Outpatient STLMLC STLMLC [id number] Common 00:00:00 00:00:00 [facility] 2019-08-27 2019-08-27 [id number] Common 08:35:00 08:35:[address] [facility] 2019-08-10 2019-08-10 [facility] [id number] Common 14:58:00 14:58:[address] [facility] 2019-08-07 2019-08-07 [facility] [id number] Common 15:31:00 15:31:[address] [facility] 2019-08-06 2019-08-06 [facility] [id number] Common 08:00:00 08:00:[address] [facility] 2019-07-06 2019-07-06 [facility] [id number] Common 16:34:00 16:34:[address] [facility] 2019-06-11 2019-06-11 [facility] [id number] Common 11:14:00 11:14:[address] [facility] 2019-05-28 2019-05-28 [facility] [id number] Common 16:13:00 16:13:[address] [facility] 2019-03-19 2019-03-19 [facility] [id number] Common 16:53:00 16:53:[address] [facility] 2019-03-17 2019-03-17 [facility] [id number] Common 08:02:00 08:02:[address] [facility] 2019-03-11 2019-03-11 [facility] [id number] Common 15:56:00 15:56:[address] [facility] 2019-03-11 2019-03-11 [facility] [id number] Common 08:53:00 08:53:[address] [facility] 2019-03-10 2019-03-10 [facility] [id number] Common 13:40:00 13:40:[address] [facility] 2018-10-28 2018-10-28 [facility] [id number] Common 11:44:00 11:44:[address] [facility] 2018-10-09 2018-10-09 [facility] [id number] Common 09:34:00 09:34:[address] [facility] 2018-09-01 2018-09-01 [facility] [id number] Common 08:40:00 08:40:[address] [facility] 2018-08-29 2018-08-29 [facility] [id number] Common 13:39:00 13:39:[address] [facility] 2018-06-13 2018-06-13 [facility] [id number] Common 14:41:00 14:41:[address] [facility] 2018-06-11 2018-06-11 [facility] [id number] Common 09:59:00 09:59:[address] [facility] 2018-06-03 2018-06-03 [facility] [id number] Common 11:00:00 11:00:[address] [facility] 2018-05-12 2018-05-12 [facility] [id number] Common 09:43:00 09:43:[address] [facility] 2018-04-17 2018-04-17 [facility] [id number] Common 13:45:00 13:45:00 t Specialty/U Sp vesta Specialty rology - [facility] 2018-04-03 2018-04-03 [facility] [id number] Common 08:31:00 08:31:[address] [facility] 2018-03-28 2018-03-28 [facility] [id number] Common 13:10:00 13:10:[address] [facility] 2018-03-28 2018-03-28 [facility] [id number] Common 10:52:00 10:52:00 t Specialty/U Sp vesta Specialty rology - [facility] 2018-03-26 2018-03-26 [facility] [id number] Common 16:01:00 16:01:[address] [facility] 2018-03-25 2018-03-25 [facility] [id number] Common 08:15:00 08:15:[address] [facility] 2017-12-16 2017-12-16 Outpatient STLMLC STLMLC [id number] Common 00:00:00 00:00:00 [facility] Results Test Description Test Time Test Comments Results Result Sour e Comments XR KNEE 3 VW 2020-10-02 1. University o f BILATERAL 3 [facility] 17:10:44 RL: [id number] Branch HISTORY: ?bilateral knee [...]
--- NOTE | 2021-08-19 13:27 | RAD REPORT ---
EXAM DESCRIPTION: RAD - Chest Single View - 08/19/2021 1:13 pm CLINICAL HISTORY: Cough Chest pain. COMPARISON: Chest Single View dated 05/06/2021; Chest Single View dated 05/05/2021; Chest Single View da nick 05/04/2021; Chest Single View dated 05/04/2021 FINDINGS: Portable technique limits examination quality. Interstitial prominence is seen bilaterally probably related to bronchitis. The heart is upper limit normal in size. No displaced fractures.
--- NOTE | 2021-08-19 13:42 | ER ---
Nurse's Notes [facility] Name: Earnest Baker Age: 70 yrs Sex: Female : 1950 Arrival Date: 08/19/2021 Time: 11:49 Bed 8 Private MD: Sophia Barrera Diagnosis: Coronavirus infection, unspecified Presentation: 08/19 11:58 Chief complaint: Patient states: cough and congestion. Coronavirus screen: congestion, aa5 cough unrelated to allergies. Ebola Screen: No symptoms or risks identified at this time. Initial Sepsis Screen: Does the patient meet any 2 criteria? RR > 20 per min. Does the patient have a suspected source of infection? Yes: Productive cough/pneumonia. Risk Assessment: Do you want to hurt yourself or someone else? Patient reports no desire to harm self or others. Onset of symptoms was August 2021. 11:58 Acuity: AMANDA 3 aa5 11:58 Method Of Arrival: Wheelchair aa5 Triage Assessment: 14:05 General: Appears in no apparent distress. Behavior is calm, cooperative. Respiratory: benjamin Reports shortness of breath cough that is. Historical: - Allergies: 11:59 No Known Allergies; aa5 - PMHx: 11:59 COPD; diabetes mellitus; Gastroesophageal reflux disease; Hypertension; Hypothyroidism; aa5 Home Oxygen; - Immunization history:: Adult Immunizations unknown. - Social history:: Smoking status: Patient reports the use of cigarette tobacco products, smokes one-half pack cigarettes per day. Screenin:04 Abuse screen: Denies threats or abuse. Denies injuries from another. Nutritional benjamin screening: No deficits noted. Tuberculosis screening: No symptoms or risk factors identified. Fall Risk None identified. Assessment: 14:04 Pain: Denies pain. Cardiovascular: Patient's skin is warm and dry. Respiratory: Airway benjamin is patent Breath sounds are coarse bilaterally. Breath sounds are diminished. 14:04 Respiratory: Reports shortness of breath cough that is. benjamin Vital Signs: 11:59 BP 98 / 54; Pulse 82; Resp 24 S; Weight 99.79 kg (R); Height 5 ft. 2 in. (157.48 cm) aa5 (R); 12:12 BP 121 / 73; Pulse 78; Resp 18; Temp 98.3; Pulse Ox 92% on 4 lpm NC; benjamin 11:59 Body Mass Index 40.24 (99.79 kg, 157.48 cm) aa5 ED Course: 11:49 Patient arrived in ED. as 11:49 Sophia Barrera MD is Private Physician. as 11:53 Brigitte Yap FNP-C is [facility]. kb 11:53 Dasha Prince MD is Attending Physician. kb 11:58 Arm band placed on. aa5 11:59 Triage completed. aa5 12:12 Andreina Hernandez, RN is Primary Nurse. benjamin 13:11 X-ray completed. Portable x-ray completed in exam room. Patient tolerated procedure mh1 well. 13:14 Chest Single View XRAY In Process Unspecified. EDMS 14:04 Patient has correct armband on for positive identification. Bed in low position. benjamin 14:04 No provider procedures requiring assistance completed. Patient did not have IV access benjamin during this emergency room visit. Administered Medications: No medications were administered Medication: 14:04 VIS not applicable for this client. benjamin Outcome: 13:42 Discharge ordered by . kb 14:04 Discharged to home via wheelchair. benjamin 14:04 Condition: good 14:04 Discharge instructions given to patient. 14:05 Patient left the ED. benjamin Signatures: Dispatcher [employer] EDMS Brigitte Yap FNP-C FNP-Janiya [facility] Bhavya Dee Audri, RN RN aa Andreina Hernandez RN RN benjamin
--- NOTE | 2021-08-19 13:42 | EDPHYS ---
Physician Documentation [facility] Name: Earnest Baker Age: 70 yrs Sex: Female : 1950 Arrival Date: 08/19/2021 Time: 11:49 Bed 8 Private MD: Sophia Barrera ED Physician Dasha Prince HPI: 08/19 14:39 This 70 yrs old Female presents to ER via Wheelchair with complaints of Congestion, kb Shortness Of Breath. 12:01 "I'm sick and need some antibiotics. I couldn't get a hold of my doctor so I came here kb for a prescription. I just want a prescription for antibiotics with a refill and to go home.". 14:39 The patient or guardian reports cough, that is intermittent. kb 14:39 Onset: The symptoms/episode began/occurred 3 day(s) ago. Severity of symptoms: At their kb worst the symptoms were mild, moderate, in the emergency department the symptoms are unchanged. Modifying factors: The symptoms are alleviated by nothing, the symptoms are aggravated by nothing. Associated signs and symptoms: The patient has no apparent associated signs or symptoms. The patient has not experienced similar symptoms in the past. The patient has not recently seen a physician. Historical: - Allergies: 11:59 No Known Allergies; aa5 - PMHx: 11:59 COPD; diabetes mellitus; Gastroesophageal reflux disease; Hypertension; Hypothyroidism; aa5 Home Oxygen; - Immunization history:: Adult Immunizations unknown. - Social history:: Smoking status: Patient reports the use of cigarette tobacco products, smokes one-half pack cigarettes per day. ROS: 14:39 Constitutional: Negative for fever, chills, and weight loss. kb 14:39 ENT: Positive for sinus congestion. 14:39 Respiratory: Positive for cough. 14:39 All other systems are negative. Exam: 14:39 Constitutional: This is a well developed, well nourished patient who is awake, alert, kb and in no acute distress. Head/Face: Normocephalic, atraumatic. ENT: Moist Mucous membranes Cardiovascular: Regular rate and rhythm with a normal S1 and S2. No gallops, murmurs, or rubs. No pulse deficits. Respiratory: Respirations even and unlabored. No increased work of breathing. Talking in full sentences Skin: Warm, dry with normal turgor. Normal color. MS/ Extremity: Pulses equal, no cyanosis. Neurovascular intact. Full, normal range of motion. Neuro: Awake and alert, GCS 15, oriented to person, place, time, and situation. Moves all extremities. Normal gait. Psych: Awake, alert, with orientation to person, place and time. Behavior, mood, and affect are within normal limits. Vital Signs: 11:59 BP 98 / 54; Pulse 82; Resp 24 S; Weight 99.79 kg (R); Height 5 ft. 2 in. (157.48 cm) aa5 (R); 12:12 BP 121 / 73; Pulse 78; Resp 18; Temp 98.3; Pulse Ox 92% on 4 lpm NC; benjamin 11:59 Body Mass Index 40.24 (99.79 kg, 157.48 cm) aa5 MDM: 11:59 Patient medically screened. kb 14:39 Data reviewed: vital signs, nurses notes. Data interpreted: Pulse oximetry: on 3.5L(s) kb per nasal canula, home o2 is 97 %. Interpretation: normal. Counseling: I had a detailed discussion with the patient and/or guardian regarding: the historical points, exam findings, and any diagnostic results supporting the discharge/admit diagnosis, lab results, radiology results, the need for outpatient follow up, a family practitioner, to return to the emergency department if symptoms worsen or persist or if there are any questions or concerns that arise at home. 08/19 12:00 Order name: Flu; Complete Time: 13:31 kb 08/19 12:00 Order name: COVID-19 SARS RT PCR (Document "Date of Onset" if Symptomatic); Complete kb Time: 13:40 08/19 12:00 Order name: Chest Single View XRAY; Complete Time: 13:31 kb Administered Medications: No medications were administered Disposition Summary: 08/19/21 13:42 Discharge Ordered Location: Home kb Condition: Stable kb Diagnosis - Coronavirus infection, unspecified kb Followup: kb - With: Emergency Department - When: As needed - Reason: Worsening of condition Followup: kb - With: Private Physician - When: 2 - 3 days - Reason: Recheck today's complaints, Continuance of care, Re-evaluation by your physician Discharge Instructions: - Discharge Summary Sheet kb - Viral Respiratory Infection, [id number] kb - COVID-19 kb Forms: - Medication Reconciliation Form kb - Thank You Letter kb - Antibiotic Education kb - Prescription Opioid Use kb Signatures: Dispatcher [employer] Brigitte Gaines, CHRISSIE-Bambi DICKENS-Nicolle Lala, RN RN aa5 Corrections: (The following items were deleted from the chart) 14:40 14:39 Data interpreted: Pulse oximetry: on room air is 92 %. Interpretation: normal. kb kb
[2021-08-19 14:27] VITALS: BP 121/73; TEMP 98.3; O2SAT 92
== END 2021-08-19 14:05 | disposition home or self-care (01) ==
LOC: ER 11:48
DX: U07.1 COVID-19 (principal); J44.9 Chronic obstructive pulmonary disease, unspecified; E11.9 Type 2 diabetes mellitus without complications; I10 Essential (primary) hypertension; E03.9 Hypothyroidism, unspecified; F17.210 Nicotine dependence, cigarettes, uncomplicated
CPT/HCPCS: 87804 ×2; 71045; U0003; 99283

== ENCOUNTER 2022-01-27 03:08 | Inpatient (IN) | payer OTHER ==
--- OUTSIDE RECORDS SUMMARY | 2022-01-27 03:22 | XMS REPORT | Continuity of Care Document ---
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 2021-0 No QD traZODone HCl 50 MG HCl 50 MG -14 HCl 50 MG 00:00: 00 Macrobid Macrobid 2021- No 1{capsu BID Macrobid 100 MG 100 MG 03-17 le_with 100 MG 00:00: 00:00 _food} 00 :00 Macrobid Macrobid 2021- No 1{capsu BID Macrobid 100 MG 100 MG 03-17 le_with 100 MG 00:00: 00:00 _food} 00 :00 Macrobid Macrobid 2021- No 1{capsu BID Macrobid 100 MG 100 MG 03-17 le_with 100 MG 00:00: 00:00 _food} 00 :00 triamcinolo 2020- No [id number] 40mg [facility] of acetonide 17:00: 15:50 [place] (KE[place]LOG) 00 :00 Medical injection Branch 40 mg triamcinolo 2020- No [id number] 40mg [facility] ne 10-14 ity of acetonide 17:00: 15:49 [place] (KENALOG) 00 :00 Medical injection Branch 40 mg triamcinolo 2020- No [id number] 40mg 40 mg, [facility] ne 10-14 Intramuscu ity of acetonide 17:00: 15:49 [place] 00 :00 1 dose, Medical injection Fri Branch 40 mg 10/14/20 at 1200, Routine triamcinolo 2020- No [id number] 40mg 40 mg, [facility] ne 10-14 Intramuscu ity of acetonide 17:00: 15:50 [place] 00 :00 1 dose, Medical injection Fri Branch 40 mg 10/14/20 at 1200, Routine triamcinolo 2020- No [id number] 40mg [facility] ne 10-14 ity of acetonide 17:00: 15:50 [place] (KENALOG) 00 :00 Medical injection Branch 40 mg triamcinolo 2020- No [id number] 40mg [facility] ne 10-14 ity of acetonide 17:00: 15:49 [place] (KENALOG) 00 :00 Medical injection Branch 40 mg triamcinolo 2020- No [id number] 40mg 40 mg, [facility] ne 10-14 Intramuscu ity of acetonide 17:00: 15:49 [place], [place] 00 :00 1 dose, Medical injection Fri Branch 40 mg 10/14/20 at 1200, Routine triamcinolo 2020- No [id number] 40mg 40 mg, [facility] ne 10-14 Intramuscu [...] %) 00 Medical nebulizer Branch solution TRELEGY 2021-0 Yes [facility] ELLIPTA 7-29 ity of 100-62.5-25 [...] nebulizer 00:00: [place] solution 00 Medical Branch Cetirizine Cetirizine 2020-0 No 1{table Cetirizine HCl 10 MG HCl 10 MG 6-23 t} HCl 10 MG 00:00: 00 Cetirizine Cetirizine 2020-0 No 1{table Cetirizine HCl 10 MG HCl 10 MG 6-23 t} HCl 10 MG 00:00: 00 Cetirizine Cetirizine 2020-0 No 1{table Cetirizine HCl 10 MG HCl 10 MG 6-23 t} HCl 10 MG 00:00: 00 Cetirizine Cetirizine 2020-0 No 1{table Cetirizine HCl 10 MG HCl 10 MG 6-23 t} HCl 10 MG 00:00: 00 Cetirizine Cetirizine 2020-0 No 1{table Cetirizine HCl 10 MG HCl 10 MG 6-23 t} HCl 10 MG 00:00: 00 Cetirizine Cetirizine 2020-0 No 1{table Cetirizine HCl 10 MG HCl 10 MG 6-23 t} HCl 10 MG 00:00: 00 Cetirizine Cetirizine 2020-0 No 1{table Cetirizine HCl 10 MG HCl 10 MG 6-23 t} HCl 10 MG 00:00: 00 Cetirizine Cetirizine 2020-0 No 1{table Cetirizine HCl 10 MG HCl 10 MG 6-23 t} HCl 10 MG 00:00: 00 Cetirizine Cetirizine 2020-0 No 1{table Cetirizine HCl 10 MG HCl 10 MG 6-23 t} HCl 10 MG 00:00: 00 Cetirizine Cetirizine 2020-0 No 1{table Cetirizine HCl 10 MG HCl 10 MG 6-23 t} HCl 10 MG 00:00: 00 Cetirizine Cetirizine 2020-0 No 1{table Cetirizine HCl 10 MG HCl 10 MG 6-23 t} HCl 10 MG 00:00: 00 Cetirizine Cetirizine 2020-0 No 1{table Cetirizine HCl 10 MG HCl 10 MG 6-23 t} HCl 10 MG 00:00: 00 Cetirizine Cetirizine 2020-0 No 1{table Cetirizine HCl 10 MG HCl 10 MG 6-23 t} HCl 10 MG 00:00: 00 Cetirizine Cetirizine 2020-0 No 1{table Cetirizine HCl 10 MG HCl 10 MG 6-23 t} HCl 10 MG 00:00: 00 Cetirizine Cetirizine 2020-0 No 1{table Cetirizine HCl 10 MG HCl 10 MG 6-23 t} HCl 10 MG 00:00: 00 Cetirizine Cetirizine 2020-0 No 1{table Cetirizine HCl 10 MG HCl 10 MG 6-23 t} HCl 10 MG 00:00: 00 Cetirizine Cetirizine 2020-0 No 1{table Cetirizine HCl 10 MG HCl 10 MG 6-23 t} HCl 10 MG 00:00: 00 Cetirizine Cetirizine 2020-0 No 1{table Cetirizine HCl 10 MG HCl 10 MG 6-23 t} HCl 10 MG 00:00: 00 Cetirizine Cetirizine 2020-0 No 1{table Cetirizine HCl 10 MG HCl 10 MG 6-23 t} HCl 10 MG 00:00: 00 Cetirizine Cetirizine 2020-0 No 1{table Cetirizine HCl 10 MG HCl 10 MG 6-23 t} HCl 10 MG 00:00: 00 Cetirizine Cetirizine 2020-0 No 1{table Cetirizine HCl 10 MG HCl 10 MG 6-23 t} HCl 10 MG 00:00: 00 Cetirizine Cetirizine 2020-0 No 1{table Cetirizine HCl 10 MG HCl 10 MG 6-23 t} HCl 10 MG 00:00: 00 Cetirizine Cetirizine 2020-0 No 1{table Cetirizine HCl 10 MG HCl 10 MG 6-23 t} HCl 10 MG 00:00: 00 Cetirizine Cetirizine 2020-0 No 1{table HCl 10 MG HCl 10 MG 6-23 t} 00:00: 00 Cetirizine Cetirizine 2020-0 No 1{table Cetirizine HCl 10 MG HCl 10 MG 6-23 t} HCl 10 MG 00:00: 00 Cetirizine Cetirizine 2020-0 No 1{table HCl 10 MG HCl 10 MG 6-23 t} 00:00: 00 Cetirizine Cetirizine 2020-0 No 1{table Cetirizine HCl 10 MG HCl 10 MG 6-23 t} HCl 10 MG 00:00: 00 Cetirizine Cetirizine 2020-0 No 1{table Cetirizine HCl 10 MG HCl 10 MG 6-23 t} HCl 10 MG 00:00: 00 Cetirizine Cetirizine 2020-0 No 1{table Cetirizine HCl 10 MG HCl 10 MG 6-23 t} HCl 10 MG 00:00: 00 Cetirizine Cetirizine 2020-0 No 1{table Cetirizine HCl 10 MG HCl 10 MG 6-23 t} HCl 10 MG 00:00: 00 Cetirizine Cetirizine 2020-0 No 1{table Cetirizine HCl 10 MG HCl 10 MG 6-23 t} HCl 10 MG 00:00: 00 Cetirizine Cetirizine 2020-0 No 1{table Cetirizine HCl 10 MG HCl 10 MG 6-23 t} HCl 10 MG 00:00: 00 Cetirizine Cetirizine 2020-0 No 1{table Cetirizine HCl 10 MG HCl 10 MG 6-23 t} HCl 10 MG 00:00: 00 Cetirizine Cetirizine 2020-0 No 1{table Cetirizine HCl 10 MG HCl 10 MG 6-23 t} HCl 10 MG 00:00: 00 Cetirizine Cetirizine 2020-0 No 1{table Cetirizine HCl 10 MG HCl 10 MG 6-23 t} HCl 10 MG 00:00: 00 Cetirizine Cetirizine 2020-0 No 1{table Cetirizine HCl 10 MG HCl 10 MG 6-23 t} HCl 10 MG 00:00: 00 Cetirizine Cetirizine 2020-0 No 1{table Cetirizine HCl 10 MG HCl 10 MG 6-23 t} HCl 10 MG 00:00: 00 Cetirizine Cetirizine 2020-0 No 1{table Cetirizine HCl 10 MG HCl 10 MG 6-23 t} HCl 10 MG 00:00: 00 Cetirizine Cetirizine 2020-0 No 1{table Cetirizine HCl 10 MG HCl 10 MG 6-23 t} HCl 10 MG 00:00: 00 Cetirizine Cetirizine 2020-0 No 1{table Cetirizine HCl 10 MG HCl 10 MG 6-23 t} HCl 10 MG 00:00: 00 Cetirizine Cetirizine 2020-0 No 1{table Cetirizine HCl 10 MG HCl 10 MG 6-23 t} HCl 10 MG 00:00: 00 Cetirizine Cetirizine 2020-0 No 1{table Cetirizine HCl 10 MG HCl 10 MG 6-23 t} HCl 10 MG 00:00: 00 Cetirizine Cetirizine 2020-0 No 1{table Cetirizine HCl 10 MG HCl 10 MG 6-23 t} HCl 10 MG 00:00: 00 Cetirizine Cetirizine 2020-0 No 1{table Cetirizine HCl 10 MG HCl 10 MG 6-23 t} HCl 10 MG 00:00: 00 Cetirizine Cetirizine 2020-0 No 1{table Cetirizine HCl 10 MG HCl 10 MG 6-23 t} HCl 10 MG 00:00: 00 Cetirizine Cetirizine 2020-0 No 1{table Cetirizine HCl 10 MG HCl 10 MG 6-23 t} HCl 10 MG 00:00: 00 Cetirizine Cetirizine 2020-0 No 1{table Cetirizine HCl 10 MG HCl 10 MG 6-23 t} HCl 10 MG 00:00: 00 fluticasone 2020-0 Yes [facility] propionate 6-23 ity of 50 00:00: [place] mcg/actuati 00 Medical on nasal Branch spray fluticasone 2020-0 Yes [facility]iver s propionate 6-23 ity of 50 00:00: [place] mcg/actuati 00 Medical on nasal Branch spray fluticasone 0 Yes [facility]iver s propionate 6-23 ity of 50 00:00: [place] mcg/actuati Medical on nasal Branch spray fluticasone 2020-0 Yes Univer s propionate 6-23 ity of 50 00:00: [place] mcg/actuati 00 Medical on nasal Branch spray fluticasone 2020-0 Yes Univer s propionate 6-23 ity of 50 00:00: [place] mcg/actuati 00 Medical on nasal Branch spray DULoxetine 2020-0 Yes [facility] 60 mg 6-07 ity of capsule 00:00: [place] 00 Medical Branch atorvastati 2021-0 Yes Univer s n 40 mg 6-07 ity of tablet 00:00: [place] 00 Medical Branch levothyroxi 2021-0 Yes Univer s ne 50 mcg 6-07 ity of tablet 00:00: [place] 00 Medical Branch DULoxetine 2021-0 Yes [facility] 60 mg 6-07 ity of capsule 00:00: [place] 00 Medical Branch atorvastati 2021-0 Yes Univer s n 40 mg 6-07 ity of tablet 00:00: [place] 00 Medical Branch levothyroxi 2021-0 Yes Univer s ne 50 mcg 6-07 ity of tablet 00:00: [place] [id number] Medical Branch DULoxetine 2021-0 Yes [facility] 60 mg 6-07 ity of capsule 00:00: [place] [facility] atorvastati 2020-0 Yes Univer s n 40 mg 6-07 ity of tablet 00:00: [place] [address] Medical Branch levothyroxi 2021-0 Yes Univer s ne 50 mcg 6-07 ity of tablet 00:00: [place] [address] Medical Branch DULoxetine 1-0 Yes [facility] 60 mg 6-07 ity of capsule 00:00: [place] [address] Medical Branch atorvastati 1-0 Yes Univer s n 40 mg 6-07 ity of tablet 00:00: [place] [facility] levothyroxi 2021-0 Yes Univer s ne 50 mcg 6-07 ity of tablet 00:00: [place] [address] Medical Branch DULoxetine 2021-0 Yes [facility] 60 mg 6-07 ity of capsule 00:00: [place] [facility] atorvastati 2021-0 Yes Univer s n 40 mg 6-07 ity of tablet 00:00: [place] 00 Medical Branch levothyroxi 2021-0 Yes Univer s ne 50 mcg 6-07 ity of tablet 00:00: [place] [address] Medical Branch lisinopriL 2021-0 Yes [facility] 20 mg 6-05 ity of tablet 00:00: [place] 00 Medical Branch potassium 2021-0 Yes [facility] chloride 10 6-05 ity of mEq CR 00:00: [place] tablet 00 Medical Branch lisinopriL 2021-0 Yes [facility] 20 mg 6-05 ity of tablet 00:00: [place] [address] Medical Branch potassium 2021-0 Yes [facility] chloride 10 6-05 ity of mEq CR 00:00: [place] tablet 00 Medical Branch lisinopriL 0 Yes [facility] 20 mg 6-05 ity of tablet 00:00: [place] [facility] Branch potassium 2020-0 Yes [facility] chloride 10 6-05 ity of mEq CR 00:00: [place] tablet Medical Branch lisinopriL 2020-0 Yes [facility] 20 mg 6-05 ity of tablet 00:00: [place] [facility] potassium 2020-0 Yes [facility] chloride 10 6-05 ity of mEq CR 00:00: [place] tablet Medical Branch lisinopriL 2020-0 Yes [facility] 20 mg 6-05 ity of tablet 00:00: [place] [facility] potassium 2020-0 Yes [facility] chloride 10 6-05 ity of mEq CR 00:00: [place] tablet Medical Branch Macrobid Macrobid 2020-0 2020- No Na Barrera 1 capsule Common 08-05 with food Spirit 00:00: 00:00 - [facility] 00 :00 [facility] Oxygen- Oxygen- 2020-0 No Oxygen- Portable Portable 4-01 Portable concentrato concentrato 00:00: concentrat r r 00 or Oxygen- Oxygen- 2020-0 No Oxygen- Portable Portable 4-01 Portable concentrato concentrato 00:00: concentrat r r 00 or Oxygen- Oxygen- 2020-0 No Oxygen- Portable Portable 4-01 Portable concentrato concentrato 00:00: concentrat r r 00 or Oxygen- Oxygen- 2020-0 No Oxygen- Portable Portable 4-01 Portable concentrato concentrato 00:00: concentrat r r 00 or Oxygen- Oxygen- 2020-0 No Oxygen- Portable Portable 4-01 Portable concentrato concentrato 00:00: concentrat r r 00 or Oxygen- Oxygen- 2020-0 No Oxygen- Portable Portable 4-01 Portable concentrato concentrato 00:00: concentrat r r 00 or Oxygen- Oxygen- 2020-0 No Oxygen- Portable Portable 4-01 Portable concentrato concentrato 00:00: concentrat r r 00 or Oxygen- Oxygen- 2020-0 No Oxygen- Portable Portable 4-01 Portable concentrato concentrato 00:00: concentrat r r 00 or Oxygen- Oxygen- 2020-0 No Oxygen- Portable Portable 4-01 Portable concentrato concentrato 00:00: concentrat r r 00 or Oxygen- Oxygen- 2020-0 No Oxygen- Portable Portable 4-01 Portable concentrato concentrato 00:00: concentrat r r 00 or Oxygen- Oxygen- 2020-0 No Oxygen- Portable Portable 4-01 Portable concentrato concentrato 00:00: concentrat r r 00 or Oxygen- Oxygen- 2020-0 No Oxygen- Portable Portable 4-01 Portable concentrato concentrato 00:00: concentrat r r 00 or Oxygen- Oxygen- 2020-0 No Oxygen- Portable Portable 4-01 Portable concentrato concentrato 00:00: concentrat r r 00 or Oxygen- Oxygen- 2020-0 No Oxygen- Portable Portable 4-01 Portable concentrato concentrato 00:00: concentrat r r 00 or Oxygen- Oxygen- 2020-0 No Oxygen- Portable Portable 4-01 Portable concentrato concentrato 00:00: concentrat r r 00 or Oxygen- Oxygen- 2020-0 No Oxygen- Portable Portable 4-01 Portable concentrato concentrato 00:00: concentrat r r 00 or Oxygen- Oxygen- 2020-0 No Oxygen- Portable Portable 4-01 Portable concentrato concentrato 00:00: concentrat r r 00 or Oxygen- Oxygen- 2020-0 No Oxygen- Portable Portable 4-01 Portable concentrato concentrato 00:00: concentrat r r 00 or Oxygen- Oxygen- 2020-0 No Oxygen- Portable Portable 4-01 Portable concentrato concentrato 00:00: concentrat r r 00 or Oxygen- Oxygen- 2020-0 No Oxygen- Portable Portable 4-01 Portable concentrato concentrato 00:00: concentrat r r 00 or Oxygen- Oxygen- 2020-0 No Oxygen- Portable Portable 4-01 Portable concentrato concentrato 00:00: concentrat r r 00 or Oxygen- Oxygen- 2020-0 No Oxygen- Portable Portable 4-01 Portable concentrato concentrato 00:00: concentrat r r 00 or Oxygen- Oxygen- 2020-0 No Oxygen- Portable Portable 4-01 Portable concentrato concentrato 00:00: concentrat r r 00 or Oxygen- Oxygen- 2020-0 No Portable Portable 4-01 concentrato concentrato 00:00: r r 00 Oxygen- Oxygen- 2020-0 No Oxygen- Portable Portable 4-01 Portable concentrato concentrato 00:00: concentrat r r 00 or Oxygen- Oxygen- 2020-0 No Portable Portable 4-01 concentrato concentrato 00:00: r r 00 Oxygen- Oxygen- 2020-0 No Oxygen- Portable Portable 4-01 Portable concentrato concentrato 00:00: concentrat r r 00 or Oxygen- Oxygen- 2020-0 No Oxygen- Portable Portable 4-01 Portable concentrato concentrato 00:00: concentrat r r 00 or Oxygen- Oxygen- 2020-0 No Oxygen- Portable Portable 4-01 Portable concentrato concentrato 00:00: concentrat r r 00 or Oxygen- Oxygen- 2020-0 No Oxygen- Portable Portable 4-01 Portable concentrato concentrato 00:00: concentrat r r 00 or Oxygen- Oxygen- 2020-0 No Oxygen- Portable Portable 4-01 Portable concentrato concentrato 00:00: concentrat r r 00 or Oxygen- Oxygen- 2020-0 No Oxygen- Portable Portable 4-01 Portable concentrato concentrato 00:00: concentrat r r 00 or Oxygen- Oxygen- 2020-0 No Oxygen- Portable Portable 4-01 Portable concentrato concentrato 00:00: concentrat r r 00 or Oxygen- Oxygen- 2020-0 No Oxygen- Portable Portable 4-01 Portable concentrato concentrato 00:00: concentrat r r 00 or Oxygen- Oxygen- 2020-0 No Oxygen- Portable Portable 4-01 Portable concentrato concentrato 00:00: concentrat r r 00 or Oxygen- Oxygen- 2020-0 No Oxygen- Portable Portable 4-01 Portable concentrato concentrato 00:00: concentrat r r 00 or Oxygen- Oxygen- 2020-0 No Oxygen- Portable Portable 4-01 Portable concentrato concentrato 00:00: concentrat r r 00 or Oxygen- Oxygen- 2020-0 No Oxygen- Portable Portable 4-01 Portable concentrato concentrato 00:00: concentrat r r 00 or Oxygen- Oxygen- 2020-0 No Oxygen- Portable Portable 4-01 Portable concentrato concentrato 00:00: concentrat r r 00 or Oxygen- Oxygen- 2020-0 No Oxygen- Portable Portable 4-01 Portable concentrato concentrato 00:00: concentrat r r 00 or Oxygen- Oxygen- 2020-0 No Oxygen- Portable Portable 4-01 Portable concentrato concentrato 00:00: concentrat r r 00 or Oxygen- Oxygen- 2020-0 No Oxygen- Portable Portable 4-01 Portable concentrato concentrato 00:00: concentrat r r 00 or Oxygen- Oxygen- 2020-0 No Oxygen- Portable Portable 4-01 Portable concentrato concentrato 00:00: concentrat r r 00 or Oxygen- Oxygen- 2020-0 No Oxygen- Portable Portable 4-01 Portable concentrato concentrato 00:00: concentrat r r 00 or Oxygen- Oxygen- 2020-0 No Oxygen- Portable Portable 4- Portable concentrato concentrato 00:00: concentrat r r 00 or Oxygen- Oxygen- 2020-0 No Oxygen- Portable Portable 4- Portable concentrato concentrato 00:00: concentrat r r 00 or Oxygen- Oxygen- 2020-0 No Oxygen- Portable Portable 4- Portable concentrato concentrato 00:00: concentrat r r 00 or Syringe 23G Syringe 23G 2020-0 No Syringe X 1" 3 ML X 1" 3 ML 1-17 23G X 1" 3 00:00: ML 00 Syringe 23G Syringe 23G 2020-0 No Syringe X 1" 3 ML X 1" 3 ML 1-17 23G X 1" 3 00:00: ML 00 Syringe 23G Syringe 23G 2020-0 No Syringe X 1" 3 ML X 1" 3 ML 1-17 23G X 1" 3 00:00: ML 00 Syringe 23G Syringe 23G 2020-0 No Syringe X 1" 3 ML X 1" 3 ML 1-17 23G X 1" 3 00:00: ML 00 Syringe 23G Syringe 23G 2020-0 No Syringe X 1" 3 ML X 1" 3 ML 1-17 23G X 1" 3 00:00: ML 00 Syringe 23G Syringe 23G 2020-0 No Syringe X 1" 3 ML X 1" 3 ML 1-17 23G X 1" 3 00:00: ML 00 Syringe 23G Syringe 23G 2020-0 No Syringe X 1" 3 ML X 1" 3 ML 1-17 23G X 1" 3 00:00: ML 00 Syringe 23G Syringe 23G 2020-0 No Syringe X 1" 3 ML X 1" 3 ML 1-17 23G X 1" 3 00:00: ML 00 Syringe 23G Syringe 23G 2020-0 No Syringe X 1" 3 ML X 1" 3 ML 1-17 23G X 1" 3 00:00: ML 00 Syringe 23G Syringe 23G 2020-0 No Syringe X 1" 3 ML X 1" 3 ML 1-17 23G X 1" 3 00:00: ML 00 Syringe 23G Syringe 23G 2020-0 No Syringe X 1" 3 ML X 1" 3 ML 1-17 23G X 1" 3 00:00: ML 00 Syringe 23G Syringe 23G 2020-0 No Syringe X 1" 3 ML X 1" 3 ML 1-17 23G X 1" 3 00:00: ML 00 Syringe 23G Syringe 23G 2020-0 No Syringe X 1" 3 ML X 1" 3 ML 1-17 23G X 1" 3 00:00: ML 00 Syringe 23G Syringe 23G 2020-0 No Syringe X 1" 3 ML X 1" 3 ML 1-17 23G X 1" 3 00:00: ML 00 Syringe 23G Syringe 23G 2020-0 No Syringe X 1" 3 ML X 1" 3 ML 1-17 23G X 1" 3 00:00: ML 00 Syringe 23G Syringe 23G 2020-0 No Syringe X 1" 3 ML X 1" 3 ML 1-17 23G X 1" 3 00:00: ML 00 Syringe 23G Syringe 23G 2020-0 No Syringe X 1" 3 ML X 1" 3 ML 1-17 23G X 1" 3 00:00: ML 00 Syringe 23G Syringe 23G 2020-0 No Syringe X 1" 3 ML X 1" 3 ML 1-17 23G X 1" 3 00:00: ML 00 Syringe 23G Syringe 23G 2020-0 No Syringe X 1" 3 ML X 1" 3 ML 1-17 23G X 1" 3 00:00: ML 00 Syringe 23G Syringe 23G 2020-0 No Syringe X 1" 3 ML X 1" 3 ML 1-17 23G X 1" 3 00:00: ML 00 Syringe 23G Syringe 23G 2020-0 No Syringe X 1" 3 ML X 1" 3 ML 1-17 23G X 1" 3 00:00: ML 00 Syringe 23G Syringe 23G 2020-0 No Syringe X 1" 3 ML X 1" 3 ML 1-17 23G X 1" 3 00:00: ML 00 Syringe 23G Syringe 23G 2020-0 No Syringe X 1" 3 ML X 1" 3 ML 1-17 23G X 1" 3 00:00: ML 00 Syringe 23G Syringe 23G 2020-0 No X 1" 3 ML X 1" 3 ML 1-17 00:00: 00 Syringe 23G Syringe 23G 2020-0 No Syringe X 1" 3 ML X 1" 3 ML 1-17 23G X 1" 3 00:00: ML 00 Syringe 23G Syringe 23G 2020-0 No X 1" 3 ML X 1" 3 ML 1-17 00:00: 00 Syringe 23G Syringe 23G 2020-0 No Syringe X 1" 3 ML X 1" 3 ML 1-17 23G X 1" 3 00:00: ML 00 Syringe 23G Syringe 23G 2020-0 No Syringe X 1" 3 ML X 1" 3 ML 1-17 23G X 1" 3 00:00: ML 00 Syringe 23G Syringe 23G 2020-0 No Syringe X 1" 3 ML X 1" 3 ML 1-17 23G X 1" 3 00:00: ML 00 Syringe 23G Syringe 23G 2020-0 No Syringe X 1" 3 ML X 1" 3 ML 1-17 23G X 1" 3 00:00: ML 00 Syringe 23G Syringe 23G 2020-0 No Syringe X 1" 3 ML X 1" 3 ML 1-17 23G X 1" 3 00:00: ML 00 Syringe 23G Syringe 23G 2020-0 No Syringe X 1" 3 ML X 1" 3 ML 1-17 23G X 1" 3 00:00: ML 00 Syringe 23G Syringe 23G 2020-0 No Syringe X 1" 3 ML X 1" 3 ML 1-17 23G X 1" 3 00:00: ML 00 Syringe 23G Syringe 23G 2020-0 No Syringe X 1" 3 ML X 1" 3 ML 1-17 23G X 1" 3 00:00: ML 00 Syringe 23G Syringe 23G 2020-0 No Syringe X 1" 3 ML X 1" 3 ML 1-17 23G X 1" 3 00:00: ML 00 Syringe 23G Syringe 23G 2020-0 No Syringe X 1" 3 ML X 1" 3 ML 1-17 23G X 1" 3 00:00: ML 00 Syringe 23G Syringe 23G 2020-0 No Syringe X 1" 3 ML X 1" 3 ML 1-17 23G X 1" 3 00:00: ML 00 Syringe 23G Syringe 23G 2020-0 No Syringe X 1" 3 ML X 1" 3 ML 1-17 23G X 1" 3 00:00: ML 00 Syringe 23G Syringe 23G 2020-0 No Syringe X 1" 3 ML X 1" 3 ML 1-17 23G X 1" 3 00:00: ML 00 Syringe 23G Syringe 23G 2020-0 No Syringe X 1" 3 ML X 1" 3 ML 1-17 23G X 1" 3 00:00: ML 00 Syringe 23G Syringe 23G 2020-0 No Syringe X 1" 3 ML X 1" 3 ML 1-17 23G X 1" 3 00:00: ML 00 Syringe 23G Syringe 23G 2020-0 No Syringe X 1" 3 ML X 1" 3 ML 1-17 23G X 1" 3 00:00: ML 00 Syringe 23G Syringe 23G 2020-0 No Syringe X 1" 3 ML X 1" 3 ML 1-17 23G X 1" 3 00:00: ML 00 Syringe 23G Syringe 23G 2020-0 No Syringe X 1" 3 ML X 1" 3 ML 1-17 23G X 1" 3 00:00: ML 00 Syringe 23G Syringe 23G 2020-0 No Syringe X 1" 3 ML X 1" 3 ML 1-17 23G X 1" 3 00:00: ML 00 Syringe 23G Syringe 23G 2020-0 No Syringe X 1" 3 ML X 1" 3 ML 1-17 23G X 1" 3 00:00: ML 00 Syringe 23G Syringe 23G 2020-0 No Syringe X 1" 3 ML X 1" 3 ML 1-17 23G X 1" 3 00:00: ML 00 Flonase 50 Flonase 50 2019-0 No 2{spray QD Flonase 50 MCG/ACT MCG/ACT 8-27 _in_eac MCG/ACT 00:00: h_nostr 00 [place]} Flonase 50 Flonase 50 2019-0 No 2{spray QD Flonase 50 MCG/ACT MCG/ACT 8-27 _in_eac MCG/ACT 00:00: h_nostr 00 [place]} Flonase 50 Flonase 50 2019-0 No 2{spray QD Flonase 50 MCG/ACT MCG/ACT 8-27 _in_eac MCG/ACT 00:00: h_nostr 00 [place]} Flonase 50 Flonase 50 2019-0 No 2{spray QD Flonase 50 MCG/ACT MCG/ACT 8-27 _in_eac MCG/ACT 00:00: h_nostr 00 [place]} Flonase 50 Flonase 50 2019-0 No 2{spray QD Flonase 50 MCG/ACT MCG/ACT 8-27 _in_eac MCG/ACT 00:00: h_nostr 00 [place]} Flonase 50 Flonase 50 2019-0 No 2{spray QD Flonase 50 MCG/ACT MCG/ACT 8-27 _in_eac MCG/ACT 00:00: h_nostr 00 [place]} Flonase 50 Flonase 50 2019-0 No 2{spray QD Flonase 50 MCG/ACT MCG/ACT 8-27 _in_eac MCG/ACT 00:00: h_nostr 00 [place]} Flonase 50 Flonase 50 2019-0 No 2{spray QD Flonase 50 MCG/ACT MCG/ACT 8-27 _in_eac MCG/ACT 00:00: h_nostr 00 [place]} Flonase 50 Flonase 50 2019-0 No 2{spray QD Flonase 50 MCG/ACT MCG/ACT 8-27 _in_eac MCG/ACT 00:00: h_nostr 00 [place]} Flonase 50 Flonase 50 2019-0 No 2{spray QD Flonase 50 MCG/ACT MCG/ACT 8-27 _in_eac MCG/ACT 00:00: h_nostr 00 [place]} Flonase 50 Flonase 50 2019-0 No 2{spray QD Flonase 50 MCG/ACT MCG/ACT 8-27 _in_eac MCG/ACT 00:00: h_nostr 00 [place]} Flonase 50 Flonase 50 2019-0 No 2{spray QD Flonase 50 MCG/ACT MCG/ACT 8-27 _in_eac MCG/ACT 00:00: h_nostr 00 [place]} Flonase 50 Flonase 50 2019-0 No 2{spray QD Flonase 50 MCG/ACT MCG/ACT 8-27 _in_eac MCG/ACT 00:00: h_nostr 00 il} Flonase 50 Flonase 50 2019-0 No 2{spray QD Flonase 50 MCG/ACT MCG/ACT 8-27 _in_eac MCG/ACT 00:00: h_nostr 00 il} Flonase 50 Flonase 50 2019-0 No 2{spray QD Flonase 50 MCG/ACT MCG/ACT 8-27 _in_eac MCG/ACT 00:00: h_nostr 00 il} Flonase 50 Flonase 50 2019-0 No 2{spray QD Flonase 50 MCG/ACT MCG/ACT 8-27 _in_eac MCG/ACT 00:00: h_nostr 00 il} Flonase 50 Flonase 50 2019-0 No 2{spray QD Flonase 50 MCG/ACT MCG/ACT 8-27 _in_eac MCG/ACT 00:00: h_nostr 00 il} Flonase 50 Flonase 50 2019-0 No 2{spray QD Flonase 50 MCG/ACT MCG/ACT 8-27 _in_eac MCG/ACT 00:00: h_nostr 00 il} Flonase 50 Flonase 50 2018- No 2{spray QD Flonase 50 MCG/ACT MCG/ACT 8-27 _in_eac MCG/ACT 00:00: h_nostr 00 il} Flonase 50 Flonase 50 2018- No 2{spray QD Flonase 50 MCG/ACT MCG/ACT 8-27 _in_eac MCG/ACT 00:00: h_nostr 00 il} Flonase 50 Flonase 50 2018- No 2{spray QD Flonase 50 MCG/ACT MCG/ACT 8-27 _in_eac MCG/ACT 00:00: h_nostr 00 il} Flonase 50 Flonase 50 2018-0 No 2{spray QD Flonase 50 MCG/ACT MCG/ACT 8-27 _in_eac MCG/ACT 00:00: h_nostr 00 il} Flonase 50 Flonase 50 2019-0 No 2{spray QD Flonase 50 MCG/ACT MCG/ACT 8-27 _in_eac MCG/ACT 00:00: h_nostr 00 il} Flonase 50 Flonase 50 2019-0 No 2{spray QD MCG/ACT MCG/ACT 8-27 _in_eac 00:00: h_nostr 00 il} Flonase 50 Flonase 50 2019-0 No 2{spray QD Flonase 50 MCG/ACT MCG/ACT 8-27 _in_eac MCG/ACT 00:00: h_nostr 00 il} Flonase 50 Flonase 50 2019-0 No 2{spray QD MCG/ACT MCG/ACT 8-27 _in_eac 00:00: h_nostr 00 il} Flonase 50 Flonase 50 2019-0 No 2{spray QD Flonase 50 MCG/ACT MCG/ACT 8-27 _in_eac MCG/ACT 00:00: h_nostr 00 il} Flonase 50 Flonase 50 2019-0 No 2{spray QD Flonase 50 MCG/ACT MCG/ACT 8-27 _in_eac MCG/ACT 00:00: h_nostr 00 il} Flonase 50 Flonase 50 2019-0 No 2{spray QD Flonase 50 MCG/ACT MCG/ACT 8-27 _in_eac MCG/ACT 00:00: h_nostr 00 il} Flonase 50 Flonase 50 2019-0 No 2{spray QD Flonase 50 MCG/ACT MCG/ACT 8-27 _in_eac MCG/ACT 00:00: h_nostr 00 il} Flonase 50 Flonase 50 2019-0 No 2{spray QD Flonase 50 MCG/ACT MCG/ACT 8-27 _in_eac MCG/ACT 00:00: h_nostr 00 il} Flonase 50 Flonase 50 2019-0 No 2{spray QD Flonase 50 MCG/ACT MCG/ACT 8-27 _in_eac MCG/ACT 00:00: h_nostr 00 il} Flonase 50 Flonase 50 2019-0 No 2{spray QD Flonase 50 MCG/ACT MCG/ACT 8-27 _in_eac MCG/ACT 00:00: h_nostr 00 il} Flonase 50 Flonase 50 2019-0 No 2{spray QD Flonase 50 MCG/ACT MCG/ACT 8-27 _in_eac MCG/ACT 00:00: h_nostr 00 il} Flonase 50 Flonase 50 2019-0 No 2{spray QD Flonase 50 MCG/ACT MCG/ACT 8-27 _in_eac MCG/ACT 00:00: h_nostr 00 il} Flonase 50 Flonase 50 2019-0 No 2{spray QD Flonase 50 MCG/ACT MCG/ACT 8-27 _in_eac MCG/ACT 00:00: h_nostr 00 il} Flonase 50 Flonase 50 2019-0 No 2{spray QD Flonase 50 MCG/ACT MCG/ACT 8-27 _in_eac MCG/ACT 00:00: h_nostr 00 il} Flonase 50 Flonase 50 2019-0 No 2{spray QD Flonase 50 MCG/ACT MCG/ACT 8-27 _in_eac MCG/ACT 00:00: h_nostr 00 il} Flonase 50 Flonase 50 2019-0 No 2{spray QD Flonase 50 MCG/ACT MCG/ACT 8-27 _in_eac MCG/ACT 00:00: h_nostr 00 il} Flonase 50 Flonase 50 2019-0 No 2{spray QD Flonase 50 MCG/ACT MCG/ACT 8-27 _in_eac MCG/ACT 00:00: h_nostr 00 il} Flonase 50 Flonase 50 2018-0 No 2{spray QD Flonase 50 MCG/ACT MCG/ACT 8-27 _in_eac MCG/ACT 00:00: h_nostr 00 il} Flonase 50 Flonase 50 2018- No 2{spray QD Flonase 50 MCG/ACT MCG/ACT 8-27 _in_eac MCG/ACT 00:00: h_nostr 00 il} Flonase 50 Flonase 50 2018- No 2{spray QD Flonase 50 MCG/ACT MCG/ACT 8-27 _in_eac MCG/ACT 00:00: h_nostr 00 il} Flonase 50 Flonase 50 2018-0 No 2{spray QD Flonase 50 MCG/ACT MCG/ACT 8-27 _in_eac MCG/ACT 00:00: h_nostr 00 il} Flonase 50 Flonase 50 2019-0 No 2{spray QD Flonase 50 MCG/ACT MCG/ACT 8-27 _in_eac MCG/ACT 00:00: h_nostr 00 il} Flonase 50 Flonase 50 2019-0 No 2{spray QD Flonase 50 MCG/ACT MCG/ACT 8-27 _in_eac MCG/ACT 00:00: h_nostr 00 il} Flonase 50 Flonase 50 2018-0 No 2{spray QD Flonase 50 MCG/ACT MCG/ACT 8-27 _in_eac MCG/ACT 00:00: h_nostr 00 il} Montelukast Montelukast 2019-0 No 1{table QD Montelukas Sodium 10 Sodium 10 7-01 t} t Sodium MG MG 00:00: 10 MG 00 Kenalog Kenalog 2019-0 No 40mg Common (Triamcinol (Triamcinol 7-01 S pirit one) one) 00:00: - [facility] [place] Montelukast 2019-0 No 1{table QD Montelukas Sodium 10 Sodium 10 7-01 t} t Sodium MG MG 00:00: 10 MG 00 Kenalog Kenalog 2019-0 No 40mg Common (Triamcinol (Triamcinol 7-01 S pirit one) one) 00:00: - [facility] 00 [facility] [place] Montelukast 2019-0 No 1{table QD Montelukas Sodium 10 Sodium 10 7-01 t} t Sodium MG MG 00:00: 10 MG 00 Kenalog Kenalog 2019-0 No 40mg Common (Triamcinol (Triamcinol 7-01 S pirit one) one) 00:00: - [facility] 00 [facility] [place] 2019-0 No 1{table QD Montelukas Sodium 10 Sodium 10 7-01 t} t Sodium MG MG 00:00: 10 MG 00 Kenalog Kenalog 2019-0 No 40mg Common (Triamcinol (Triamcinol 7-01 S pirit one) one) 00:00: - [facility] 00 [facility] [place] Montelukast 2019-0 No 1{table QD Montelukas Sodium 10 Sodium 10 7-01 t} t Sodium MG MG 00:00: 10 MG 00 Kenalog Kenalog 2019-0 No 40mg Common (Triamcinol (Triamcinol 7-01 S pirit one) one) 00:00: - [facility] Montelukast Montelukast 2019-0 No 1{table QD Montelukas Sodium 10 Sodium 10 7-01 t} t Sodium MG MG 00:00: 10 MG 00 Kenalog Kenalog 2019-0 No 40mg Common (Triamcinol (Triamcinol 7-01 S pirit one) one) 00:00: - [facility] 00 [facility] [place] Montelukast 2019-0 No 1{table QD Montelukas Sodium 10 Sodium 10 7-01 t} t Sodium MG MG 00:00: 10 MG 00 Kenalog Kenalog 2019-0 No 40mg Common (Triamcinol (Triamcinol 7-01 S pirit one) one) 00:00: - [facility] 00 [facility] 2019-0 No 1{table QD Montelukas Sodium 10 Sodium 10 7-01 t} t Sodium MG MG 00:00: 10 MG 00 Kenalog Kenalog 2019-0 No 40mg Common (Triamcinol (Triamcinol 7-01 S pirit one) one) 00:00: - [facility] 00 [facility] 2019-0 No 1{table QD Montelukas Sodium 10 Sodium 10 7- t} t Sodium MG MG 00:00: 10 MG 00 Kenalog Kenalog 2019-0 No 40mg Common (Triamcinol (Triamcinol 7-01 S pirit one) one) 00:00: - [facility] 00 [facility] 2019-0 No 1{table QD Montelukas Sodium 10 Sodium 10 7- t} t Sodium MG MG 00:00: 10 MG 00 Kenalog Kenalog 2019-0 No 40mg Common (Triamcinol (Triamcinol 7-01 S pirit one) one) 00:00: - [facility] 00 [facility] 2019-0 No 1{table QD Montelukas Sodium 10 Sodium 10 7- t} t Sodium MG MG 00:00: 10 MG 00 Kenalog Kenalog 2019-0 No 40mg Common (Triamcinol (Triamcinol 7-01 S pirit one) one) 00:00: - [facility] 00 [facility] Kenalog Kenalog 2019-0 No 40mg Common (Triamcinol (Triamcinol 7-01 S pirit one) one) 00:00: - [facility] 00 [facility] Kenalog Kenalog 2019-0 No 40mg Common (Triamcinol (Triamcinol 7-01 S pirit one) one) 00:00: - [facility] 00 [facility] Kenalog Kenalog 2019-0 No 40mg Common (Triamcinol (Triamcinol 7-01 S pirit one) one) 00:00: - [facility] 00 [facility] Montelukast Montelukast 2019-0 No 1{table QD Montelukas Sodium 10 Sodium 10 7-01 t} t Sodium MG MG 00:00: 10 MG 00 Kenalog Kenalog 2019-0 No 40mg Common (Triamcinol (Triamcinol 7-01 S pirit one) one) 00:00: - [facility] 00 [facility] Kenalog Kenalog 2019-0 No 40mg Common (Triamcinol (Triamcinol 7-01 S pirit one) one) 00:00: - [facility] 00 [facility] Montelukast Montelukast 2019-0 No 1{table QD Montelukas Sodium 10 Sodium 10 7-01 t} t Sodium MG MG 00:00: 10 MG 00 Kenalog Kenalog 2019-0 No 40mg Common (Triamcinol (Triamcinol 7-01 S pirit one) one) 00:00: - [facility] 00 [facility] Kenalog Kenalog 2019-0 No 40mg Common (Triamcinol (Triamcinol 7-01 S pirit one) one) 00:00: - [facility] 00 [facility] Montelukast Montelukast 2019-0 No 1{table QD Montelukas Sodium 10 Sodium 10 7-01 t} t Sodium MG MG 00:00: 10 MG 00 Montelukast Montelukast 2019-0 No 1{table QD Montelukas Sodium 10 Sodium 10 7-01 t} t Sodium MG MG 00:00: 10 MG 00 Montelukast Montelukast 2019-0 No 1{table QD Montelukas Sodium 10 Sodium 10 7-01 t} t Sodium MG MG 00:00: 10 MG 00 Montelukast Montelukast 2019-0 No 1{table QD Montelukas Sodium 10 Sodium 10 7-01 t} t Sodium MG MG 00:00: 10 MG 00 Montelukast Montelukast 2019-0 No 1{table QD Montelukas Sodium 10 Sodium 10 7-01 t} t Sodium MG MG 00:00: 10 MG 00 Montelukast Montelukast 2019-0 No 1{table QD Sodium 10 Sodium 10 7-01 t} MG MG 00:00: 00 Montelukast Montelukast 2019-0 No 1{table QD Montelukas Sodium 10 Sodium 10 7-01 t} t Sodium MG MG 00:00: 10 MG 00 Montelukast Montelukast 2019-0 No 1{table QD Sodium 10 Sodium 10 7-01 t} MG MG 00:00: 00 Montelukast Montelukast 2019-0 No 1{table QD Montelukas Sodium 10 Sodium 10 7- t} t Sodium MG MG 00:00: 10 MG 00 Montelukast Montelukast 2019-0 No 1{table QD Montelukas Sodium 10 Sodium 10 7- t} t Sodium MG MG 00:00: 10 MG 00 Montelukast Montelukast 2019-0 No 1{table QD Montelukas Sodium 10 Sodium 10 7-01 t} t Sodium MG MG 00:00: 10 MG 00 Montelukast Montelukast 2019-0 No 1{table QD Montelukas Sodium 10 Sodium 10 7- t} t Sodium MG MG 00:00: 10 MG 00 Kenalog Kenalog 2019-0 No 40mg Common (Triamcinol (Triamcinol 7-01 S pirit one) one) 00:00: - [facility] 00 [facility] Montelukast Montelukast 2019-0 No 1{table QD Montelukas Sodium 10 Sodium 10 7-01 t} t Sodium MG MG 00:00: 10 MG 00 Kenalog Kenalog 2019-0 No 40mg Common (Triamcinol (Triamcinol 7-01 S pirit one) one) 00:00: - [facility] 00 [facility] Montelukast Montelukast 2019-0 No 1{table QD Montelukas Sodium 10 Sodium 10 7-01 t} t Sodium MG MG 00:00: 10 MG 00 Kenalog Kenalog 2019-0 No 40mg Common (Triamcinol (Triamcinol 7-01 S pirit one) one) 00:00: - [facility] 00 [facility] Montelukast Montelukast 2019-0 No 1{table QD Montelukas Sodium 10 Sodium 10 7-01 t} t Sodium MG MG 00:00: 10 MG 00 Kenalog Kenalog 2019-0 No 40mg Common (Triamcinol (Triamcinol 7-01 S pirit one) one) 00:00: - [facility] 00 [facility] 2019-0 No 1{table QD Montelukas Sodium 10 Sodium 10 7-01 t} t Sodium MG MG 00:00: 10 MG 00 Kenalog Kenalog 2019-0 No 40mg Common (Triamcinol (Triamcinol 7-01 S pirit one) one) [facility]table [facility]D Montelukas Sodium 10 Sodium 10 7-01 t} t Sodium MG MG 00:00: 10 MG 00 Kenalog Kenalog 2019-0 No 40mg Common (Triamcinol (Triamcinol 7-01 S pirit one) one) 00:[facility]: [facility]{table QD Montelukas Sodium 10 Sodium 10 7-01 t} t Sodium MG MG 00:00: 10 MG 00 Kenalog Kenalog 2019-0 No 40mg Common (Triamcinol (Triamcinol 7-01 S pirit one) one) 00:[facility]: [facility] No [facility]{table QD Montelukas Sodium 10 Sodium 10 7-01 t} t Sodium MG MG 00:00: 10 MG 00 Kenalog Kenalog 2019-0 No 40mg Common (Triamcinol (Triamcinol 7-01 S pirit one) one) 00:00: - [facility] No [facility]{table QD Montelukas Sodium 10 Sodium 10 7-01 t} t Sodium MG MG 00:00: 10 MG 00 Kenalog Kenalog 2019-0 No 40mg Common (Triamcinol (Triamcinol 7-01 S pirit one) one) 00:00: [facility] No 1{table QD Montelukas Sodium 10 Sodium 10 7-01 t} t Sodium MG MG 00:00: 10 MG 00 Kenalog Kenalog 2019-0 No 40mg Common (Triamcinol (Triamcinol 7-01 S pirit one) one) 00:00: - [facility] 00 [facility] [place] 2019-0 No 1{table QD Montelukas Sodium 10 Sodium 10 7-01 t} t Sodium MG MG 00:00: 10 MG 00 Kenalog Kenalog 2019-0 No 40mg Common (Triamcinol (Triamcinol 7-01 S pirit one) one) 00:00: - [facility] 00 [facility] [place] 2019-0 No 1{table QD Montelukas Sodium 10 Sodium 10 7-01 t} t Sodium MG MG 00:00: 10 MG 00 Kenalog Kenalog 2019-0 No 40mg Common (Triamcinol (Triamcinol 7-01 S pirit one) one) 00:00: - [facility] 00 [facility] [place] 2019-0 No 1{table QD Montelukas Sodium 10 Sodium 10 7-01 t} t Sodium MG MG 00:00: 10 MG 00 Kenalog Kenalog 2019-0 No 40mg Common (Triamcinol (Triamcinol 7-01 S pirit one) one) 00:00: - [facility] 00 [facility] [place] [place] 2019-0 No 1{table QD Montelukas Sodium 10 Sodium 10 7-01 t} t Sodium MG MG 00:00: 10 MG 00 Kenalog Kenalog 2019-0 No 40mg Common (Triamcinol (Triamcinol 7-01 S pirit one) one) 00:00: - [facility] 00 [facility] [place] Montelukast 2019-0 No 1{table QD Montelukas Sodium 10 Sodium 10 7-01 t} t Sodium MG MG 00:00: 10 MG 00 Kenalog Kenalog 2019-0 No 40mg Common (Triamcinol (Triamcinol 7-01 S pirit one) one) 00:00: - [facility] 00 [facility] [place] Montelukast 2019-0 No 1{table QD Montelukas Sodium 10 Sodium 10 7-01 t} t Sodium MG MG 00:00: 10 MG 00 Kenalog Kenalog 2019-0 No 40mg Common (Triamcinol (Triamcinol 7-01 S pirit one) one) 00:00: - [facility] 00 [facility] Montelukast Montelukast 2019-0 No 1{table QD Montelukas Sodium 10 Sodium 10 7-01 t} t Sodium MG MG 00:00: 10 MG 00 Kenalog Kenalog 2019-0 No 40mg Common (Triamcinol (Triamcinol 7-01 S pirit one) one) 00:00: - [facility] 00 [facility] Montelukast Montelukast 2019-0 No 1{table QD Montelukas Sodium 10 Sodium 10 7-01 t} t Sodium MG MG 00:00: 10 MG 00 Kenalog Kenalog 2019-0 No 40mg Common (Triamcinol (Triamcinol 7-01 S pirit one) one) 00:00: - [facility] 00 [facility] Kenalog Kenalog 2019-0 No 40mg Common (Triamcinol (Triamcinol 4-02 S pirit one) one) 00:00: - [facility] 00 [facility] Kenalog Kenalog 2019-0 No 40mg Common (Triamcinol (Triamcinol 4-02 S pirit one) one) 00:00: - [facility] 00 [facility] Kenalog Kenalog 2019-0 No 40mg Common (Triamcinol (Triamcinol 4-02 S pirit one) one) 00:00: - [facility] 00 [facility] Kenalog Kenalog 2019-0 No 40mg Common (Triamcinol (Triamcinol 4-02 S pirit one) one) 00:00: - [facility] 00 [facility] Kenalog Kenalog 2019-0 No 40mg Common (Triamcinol (Triamcinol 4-02 S pirit one) one) 00:00: - [facility] 00 [facility] Kenalog Kenalog 2019-0 No 40mg Common (Triamcinol (Triamcinol 4-02 S pirit one) one) 00:00: - [facility] 00 [facility] Kenalog Kenalog 2019-0 No 40mg Common (Triamcinol (Triamcinol 4-02 S pirit one) one) 00:00: - [facility] 00 [facility] Kenalog Kenalog 2019-0 No 40mg Common (Triamcinol (Triamcinol 4-02 S pirit one) one) 00:00: - [facility] 00 [facility] Kenalog Kenalog 2019-0 No 40mg Common (Triamcinol (Triamcinol 4-02 S pirit one) one) 00:00: - [facility] 00 [facility] Kenalog Kenalog 2019-0 No 40mg Common (Triamcinol (Triamcinol 4-02 S pirit one) one) 00:00: - [facility] 00 [facility] Kenalog Kenalog 2019-0 No 40mg Common (Triamcinol (Triamcinol 4-02 S pirit one) one) 00:00: - [facility] 00 [facility] Kenalog Kenalog 2019-0 No 40mg Common (Triamcinol (Triamcinol 4-02 S pirit one) one) 00:00: - [facility] 00 [facility] Kenalog Kenalog 2019-0 No 40mg Common (Triamcinol (Triamcinol 4-02 S pirit one) one) 00:00: - [facility] 00 [facility] Kenalog Kenalog 2019-0 No 40mg Common (Triamcinol (Triamcinol 4-02 S pirit one) one) 00:00: - [facility] 00 [facility] Kenalog Kenalog 2019-0 No 40mg Common (Triamcinol (Triamcinol 4-02 S pirit one) one) 00:00: - [facility] 00 [facility] Kenalog Kenalog 2019-0 No 40mg Common (Triamcinol (Triamcinol 4-02 S pirit one) one) 00:00: - [facility] 00 [facility] Kenalog Kenalog 2019-0 No 40mg Common (Triamcinol (Triamcinol 4-02 S pirit one) one) 00:00: - [facility] 00 [facility] Kenalog Kenalog 2019-0 No 40mg Common (Triamcinol (Triamcinol 4-02 S pirit one) one) 00:00: - [facility] 00 [facility] Kenalog Kenalog 2019-0 No 40mg Common (Triamcinol (Triamcinol 4-02 S pirit one) one) 00:00: - [facility] 00 [facility] Kenalog Kenalog 2019-0 No 40mg Common (Triamcinol (Triamcinol 4-02 S pirit one) one) 00:00: - [facility] 00 [facility] Kenalog Kenalog 2019-0 No 40mg Common (Triamcinol (Triamcinol 4-02 S pirit one) one) 00:00: - [facility] 00 [facility] Kenalog Kenalog 2019-0 No 40mg Common (Triamcinol (Triamcinol 4-02 S pirit one) one) 00:00: - [facility] 00 [facility] Kenalog Kenalog 2019-0 No 40mg Common (Triamcinol (Triamcinol 4-02 S pirit one) one) 00:00: - [facility] 00 [facility] Kenalog Kenalog 2019-0 No 40mg Common (Triamcinol (Triamcinol 4-02 S pirit one) one) 00:00: - [facility] 00 [facility] Kenalog Kenalog 2019-0 No 40mg Common (Triamcinol (Triamcinol 4-02 S pirit one) one) 00:00: - [facility] 00 [facility] Kenalog Kenalog 2019-0 No 40mg Common (Triamcinol (Triamcinol 4-02 S pirit one) one) 00:00: - [facility] 00 [facility] Kenalog Kenalog 2019-0 No 40mg Common (Triamcinol (Triamcinol 4-02 S pirit one) one) 00:00: - [facility] 00 [facility] Kenalog Kenalog 2019-0 No 40mg Common (Triamcinol (Triamcinol 4-02 S pirit one) one) 00:00: - [facility] 00 [facility] Kenalog Kenalog 2019-0 No 40mg Common (Triamcinol (Triamcinol 4-02 S pirit one) one) 00:00: - [facility] 00 [facility] Kenalog Kenalog 2019-0 No 40mg Common (Triamcinol (Triamcinol 4-02 S pirit one) one) 00:00: - [facility] 00 [facility] Kenalog Kenalog 2019-0 No 40mg Common (Triamcinol (Triamcinol 4-02 S pirit one) one) 00:00: - [facility] 00 [facility] Kenalog Kenalog 2019-0 No 40mg Common (Triamcinol (Triamcinol 4-02 S pirit one) one) 00:00: - [facility] 00 [facility] Kenalog Kenalog 2019-0 No 40mg Common (Triamcinol (Triamcinol 4-02 S pirit one) one) 00:00: - [facility] 00 [facility] Kenalog Kenalog 2019-0 No 40mg Common (Triamcinol (Triamcinol 4-02 S pirit one) one) 00:00: - [facility] 00 [facility] Kenalog Kenalog 2019-0 No 40mg Common (Triamcinol (Triamcinol 4-02 S pirit one) one) 00:00: - [facility] 00 [facility] [place] Kenalog 2019-0 No 40mg Common (Triamcinol (Triamcinol 4-02 S pirit one) one) 00:00: - [facility] 00 [facility] Augmentin Augmentin No 1{table BID Augmentin 500-125 MG 500-125 MG t} 500-125 MG Potassium Potassium No Potassium Chloride ER Chloride ER Chloride 10 MEQ 10 MEQ ER 10 MEQ predniSONE predniSONE No QD predniSONE 10 MG 10 MG 10 MG Cetirizine Cetirizine No 1{table Cetirizine HCl 10 MG HCl 10 MG t} HCl 10 MG valACYclovi valACYclovi No 1{table BID valACYclov r HCl 1 GM r HCl 1 GM t} ir HCl 1 GM traZODone traZODone No QD traZODone HCl 100 MG HCl 100 MG HCl 100 MG Famotidine Famotidine No 1{table BID Famotidine 20 MG 20 MG t} 20 MG Ipratropium Ipratropium No Ipratropiu [place] 0.02 % 0.02 % 0.02 % guaiFENesin guaiFENesin No 5{ml} QID guaiFENesi -Codeine -Codeine n-Codeine 100-10 100-10 100-10 MG/5ML MG/5ML MG/5ML Ipratropium Ipratropium No 3{ml_as QID Ipratropiu -Albuterol -Albuterol _needed m-Albutero 0.5-2.5 (3) 0.5-2.5 (3) } l 0.5-2.5 MG/3ML MG/3ML (3) MG/3ML Augmentin Augmentin No 1{table BID Augmentin 500-125 MG 500-125 MG t} 500-125 MG Albuterol Albuterol No 3{ml_as Albuterol Sulfate Sulfate _needed Sulfate (2.5 (2.5 } (2.5 MG/3ML) MG/3ML) MG/3ML) 0.083% 0.083% 0.083% guaiFENesin guaiFENesin No 5{ml} QID guaiFENesi -Codeine -Codeine n-Codeine 100-10 100-10 100-10 MG/5ML MG/5ML MG/5ML Lidocaine 5 Lidocaine 5 No 1{appli TID Lidocaine % % cation_ 5 % to_affe cted_ar ea_as_n eeded} Levothyroxi Levothyroxi No Levothyrox ne Sodium ne Sodium ine Sodium 50 MCG 50 MCG 50 MCG Augmentin Augmentin No 1{table BID Augmentin 500-125 MG 500-125 MG t} 500-125 MG Famotidine Famotidine No 1{table BID Famotidine 20 MG 20 MG t} 20 MG Atorvastati Atorvastati No 1{table QD Atorvastat n Calcium n Calcium t_at_be in Calcium 40 MG 40 MG dtime} 40 MG predniSONE predniSONE No QD predniSONE 10 MG 10 MG 10 MG Omeprazole Omeprazole No 1{capsu QD Omeprazole 40 MG 40 MG le} 40 MG Ipratropium Ipratropium No 3{ml_as QID Ipratropiu -Albuterol -Albuterol _needed m-Albutero 0.5-2.5 (3) 0.5-2.5 (3) } l 0.5-2.5 MG/3ML MG/3ML (3) MG/3ML HYDROcodone HYDROcodone No 1{table QID HYDROcodon -Acetaminop -Acetaminop t_as_ne e-Acetamin hen 10-325 hen 10-325 eded} ophen MG MG 10-325 MG Gabapentin Gabapentin No 2{capsu TID Gabapentin 300 MG 300 MG le} 300 MG Augmentin Augmentin No 1{table BID Augmentin 500-125 MG 500-125 MG t} 500-125 MG Ipratropium Ipratropium No Ipratropiu [place] 0.02 % 0.02 % 0.02 % valACYclovi valACYclovi No 1{table BID valACYclov r HCl 1 GM r HCl 1 GM t} ir HCl 1 GM Cheratussin Cheratussin No 5{ml} Cheratussi AC 100-10 AC 100-10 n AC MG/5ML MG/5ML 100-10 MG/5ML Cetirizine Cetirizine No 1{table Cetirizine HCl 10 MG HCl 10 MG t} HCl 10 MG traZODone traZODone No QD traZODone HCl 100 MG HCl 100 MG HCl 100 MG Triamcinolo Triamcinolo No BID Triamcinol ne ne one Acetonide Acetonide Acetonide 0.1 % 0.1 % 0.1 % Lisinopril Lisinopril No Lisinopril 20 MG 20 MG 20 MG Montelukast Montelukast No 1{table QD Montelukas Sodium 10 Sodium 10 t} t Sodium MG MG 10 MG Flonase 50 Flonase 50 No 2{spray QD Flonase 50 MCG/ACT MCG/ACT _in_eac MCG/ACT h_nostr il} Potassium Potassium No Potassium Chloride ER Chloride ER Chloride 10 MEQ 10 MEQ ER 10 MEQ Albuterol Albuterol No 3{ml_as Albuterol Sulfate Sulfate _needed Sulfate (2.5 (2.5 } (2.5 MG/3ML) MG/3ML) MG/3ML) 0.083% 0.083% 0.083% guaiFENesin guaiFENesin No 5{ml} QID guaiFENesi -Codeine -Codeine n-Codeine 100-10 100-10 100-10 MG/5ML MG/5ML MG/5ML Lidocaine 5 Lidocaine 5 No 1{appli TID Lidocaine % % cation_ 5 % to_affe cted_ar ea_as_n eeded} Levothyroxi Levothyroxi No Levothyrox ne Sodium ne Sodium ine Sodium 50 MCG 50 MCG 50 MCG Augmentin Augmentin No 1{table BID Augmentin 500-125 MG 500-125 MG t} 500-125 MG Famotidine Famotidine No 1{table BID Famotidine 20 MG 20 MG t} 20 MG Atorvastati Atorvastati No 1{table QD Atorvastat n Calcium n Calcium t_at_be in Calcium 40 MG 40 MG dtime} 40 MG predniSONE predniSONE No QD predniSONE 10 MG 10 MG 10 MG Omeprazole Omeprazole No 1{capsu QD Omeprazole 40 MG 40 MG le} 40 MG Ipratropium Ipratropium No 3{ml_as QID Ipratropiu -Albuterol -Albuterol _needed m-Albutero 0.5-2.5 (3) 0.5-2.5 (3) } l 0.5-2.5 MG/3ML MG/3ML (3) MG/3ML HYDROcodone HYDROcodone No 1{table QID HYDROcodon -Acetaminop -Acetaminop t_as_ne e-Acetamin hen 10-325 hen 10-325 eded} ophen MG MG 10-325 MG Gabapentin Gabapentin No 2{capsu TID Gabapentin 300 MG 300 MG le} 300 MG Augmentin Augmentin No 1{table BID Augmentin 500-125 MG 500-125 MG t} 500-125 MG Ipratropium Ipratropium No Ipratropiu [place] 0.02 % 0.02 % 0.02 % valACYclovi valACYclovi No 1{table BID valACYclov r HCl 1 GM r HCl 1 GM t} ir HCl 1 GM Cheratussin Cheratussin No 5{ml} Cheratussi AC 100-10 AC 100-10 n AC MG/5ML MG/5ML 100-10 MG/5ML Cetirizine Cetirizine No 1{table Cetirizine HCl 10 MG HCl 10 MG t} HCl 10 MG traZODone traZODone No QD traZODone HCl 100 MG HCl 100 MG HCl 100 MG Triamcinolo Triamcinolo No BID Triamcinol ne ne one Acetonide Acetonide Acetonide 0.1 % 0.1 % 0.1 % Lisinopril Lisinopril No Lisinopril 20 MG 20 MG 20 MG Montelukast Montelukast No 1{table QD Montelukas Sodium 10 Sodium 10 t} t Sodium MG MG 10 MG Flonase 50 Flonase 50 No 2{spray QD Flonase 50 MCG/ACT MCG/ACT _in_eac MCG/ACT h_nostr il} Potassium Potassium No Potassium Chloride ER Chloride ER Chloride 10 MEQ 10 MEQ ER 10 MEQ Albuterol Albuterol No 3{ml_as Albuterol Sulfate Sulfate _needed Sulfate (2.5 (2.5 } (2.5 MG/3ML) MG/3ML) MG/3ML) 0.083% 0.083% 0.083% guaiFENesin guaiFENesin No 5{ml} QID guaiFENesi -Codeine -Codeine n-Codeine 100-10 100-10 100-10 MG/5ML MG/5ML MG/5ML Lidocaine 5 Lidocaine 5 No 1{appli TID Lidocaine % % cation_ 5 % to_affe cted_ar ea_as_n eeded} Levothyroxi Levothyroxi No Levothyrox ne Sodium ne Sodium ine Sodium 50 MCG 50 MCG 50 MCG Augmentin Augmentin No 1{table BID Augmentin 500-125 MG 500-125 MG t} 500-125 MG Famotidine Famotidine No 1{table BID Famotidine 20 MG 20 MG t} 20 MG Atorvastati Atorvastati No 1{table QD Atorvastat n Calcium n Calcium t_at_be in Calcium 40 MG 40 MG dtime} 40 MG predniSONE predniSONE No QD predniSONE 10 MG 10 MG 10 MG Omeprazole Omeprazole No 1{capsu QD Omeprazole 40 MG 40 MG le} 40 MG Cheratussin Cheratussin No 5{ml} Cheratussi AC 100-10 AC 100-10 n AC MG/5ML MG/5ML 100-10 MG/5ML Ipratropium Ipratropium No 3{ml_as QID Ipratropiu -Albuterol -Albuterol _needed m-Albutero 0.5-2.5 (3) 0.5-2.5 (3) } l 0.5-2.5 MG/3ML MG/3ML (3) MG/3ML HYDROcodone HYDROcodone No 1{table QID HYDROcodon -Acetaminop -Acetaminop t_as_ne e-Acetamin hen 10-325 hen 10-325 eded} ophen MG MG 10-325 MG Gabapentin Gabapentin No 2{capsu TID Gabapentin 300 MG 300 MG le} 300 MG Augmentin Augmentin No 1{table BID Augmentin 500-125 MG 500-125 MG t} 500-125 MG Ipratropium Ipratropium No Ipratropiu [place] m [place] 0.02 % 0.02 % 0.02 % valACYclovi valACYclovi No 1{table BID valACYclov r HCl 1 GM r HCl 1 GM t} ir HCl 1 GM Cheratussin Cheratussin No 5{ml} Cheratussi AC 100-10 AC 100-10 n AC MG/5ML MG/5ML 100-10 MG/5ML Triamcinolo Triamcinolo No BID Triamcinol ne ne one Acetonide Acetonide Acetonide 0.1 % 0.1 % 0.1 % Cetirizine Cetirizine No 1{table Cetirizine HCl 10 MG HCl 10 MG t} HCl 10 MG traZODone traZODone No QD traZODone HCl 100 MG HCl 100 MG HCl 100 MG Triamcinolo Triamcinolo No BID Triamcinol ne ne one Acetonide Acetonide Acetonide 0.1 % 0.1 % 0.1 % Lisinopril Lisinopril No Lisinopril 20 MG 20 MG 20 MG Montelukast Montelukast No 1{table QD Montelukas Sodium 10 Sodium 10 t} t Sodium MG MG 10 MG Flonase 50 Flonase 50 No 2{spray QD Flonase 50 MCG/ACT MCG/ACT _in_eac MCG/ACT h_nostr il} Potassium Potassium No Potassium Chloride ER Chloride ER Chloride 10 MEQ 10 MEQ ER 10 MEQ Levothyroxi Levothyroxi No Levothyrox ne Sodium ne Sodium ine Sodium 50 MCG 50 MCG 50 MCG Gabapentin Gabapentin No 2{capsu TID Gabapentin 300 MG 300 MG le} 300 MG Cetirizine Cetirizine No 1{table Cetirizine HCl 10 MG HCl 10 MG t} HCl 10 MG Azithromyci Azithromyci No QD Azithromyc n 250 MG n 250 MG in 250 MG Augmentin Augmentin No 1{table BID Augmentin 500-125 MG 500-125 MG t} 500-125 MG Ipratropium Ipratropium No 3{ml_as QID Ipratropiu -Albuterol -Albuterol _needed m-Albutero 0.5-2.5 (3) 0.5-2.5 (3) } l 0.5-2.5 MG/3ML MG/3ML (3) MG/3ML traZODone traZODone No QD traZODone HCl 100 MG HCl 100 MG HCl 100 MG valACYclovi valACYclovi No 1{table BID valACYclov r HCl 1 GM r HCl 1 GM t} ir HCl 1 GM HYDROcodone HYDROcodone No 1{table QID HYDROcodon -Acetaminop -Acetaminop t_as_ne e-Acetamin hen 10-325 hen 10-325 eded} ophen MG MG 10-325 MG Lidocaine 5 Lidocaine 5 No 1{appli TID Lidocaine % % cation_ 5 % to_affe cted_ar ea_as_n eeded} Flonase 50 Flonase 50 No 2{spray QD Flonase 50 MCG/ACT MCG/ACT _in_eac MCG/ACT h_nostr il} Potassium Potassium No Potassium Chloride ER Chloride ER Chloride 10 MEQ 10 MEQ ER 10 MEQ Atorvastati Atorvastati No 1{table QD Atorvastat n Calcium n Calcium t_at_be in Calcium 40 MG 40 MG dtime} 40 MG Augmentin Augmentin No 1{table BID Augmentin 500-125 MG 500-125 MG t} 500-125 MG Albuterol Albuterol No 3{ml_as Albuterol Sulfate Sulfate _needed Sulfate (2.5 (2.5 } (2.5 MG/3ML) MG/3ML) MG/3ML) 0.083% 0.083% 0.083% guaiFENesin guaiFENesin No 5{ml} QID guaiFENesi -Codeine -Codeine n-Codeine 100-10 100-10 100-10 MG/5ML MG/5ML MG/5ML Atorvastati Atorvastati No 1{table QD Atorvastat n Calcium n Calcium t_at_be in Calcium 40 MG 40 MG dtime} 40 MG predniSONE predniSONE No QD predniSONE 10 MG 10 MG 10 MG Ipratropium Ipratropium No Ipratropiu [place] 0.02 % 0.02 % 0.02 % Lisinopril Lisinopril No Lisinopril 20 MG 20 MG 20 MG Triamcinolo Triamcinolo No BID Triamcinol ne ne one Acetonide Acetonide Acetonide 0.1 % 0.1 % 0.1 % Lidocaine 5 Lidocaine 5 No 1{appli TID Lidocaine % % cation_ 5 % to_affe cted_ar ea_as_n eeded} Montelukast Montelukast No 1{table QD Montelukas Sodium 10 Sodium 10 t} t Sodium MG MG 10 MG Omeprazole Omeprazole No 1{capsu QD Omeprazole 40 MG 40 MG le} 40 MG Cheratussin Cheratussin No 5{ml} Cheratussi AC 100-10 AC 100-10 n AC MG/5ML MG/5ML 100-10 MG/5ML Famotidine Famotidine No 1{table BID Famotidine 20 MG 20 MG t} 20 MG predniSONE predniSONE No QD predniSONE 10 MG 10 MG 10 MG Flonase 50 Flonase 50 No 2{spray QD Flonase 50 MCG/ACT MCG/ACT _in_eac MCG/ACT h_nostr il} Omeprazole Omeprazole No 1{capsu QD Omeprazole 40 MG 40 MG le} 40 MG HYDROcodone HYDROcodone No 1{table QID HYDROcodon -Acetaminop -Acetaminop t_as_ne e-Acetamin hen 10-325 hen 10-325 eded} ophen MG MG 10-325 MG Albuterol Albuterol No 3{ml_as Albuterol Sulfate Sulfate _needed Sulfate (2.5 (2.5 } (2.5 MG/3ML) MG/3ML) MG/3ML) 0.083% 0.083% 0.083% Levothyroxi Levothyroxi No Levothyrox ne Sodium ne Sodium ine Sodium 50 MCG 50 MCG 50 MCG Lisinopril Lisinopril No Lisinopril 20 MG 20 MG 20 MG Gabapentin Gabapentin No 2{capsu TID Gabapentin 300 MG 300 MG le} 300 MG Augmentin Augmentin No 1{table BID Augmentin 500-125 MG 500-125 MG t} 500-125 MG Potassium Potassium No Potassium Chloride ER Chloride ER Chloride 10 MEQ 10 MEQ ER 10 MEQ predniSONE predniSONE No QD predniSONE 10 MG 10 MG 10 MG Cetirizine Cetirizine No 1{table Cetirizine HCl 10 MG HCl 10 MG t} HCl 10 MG valACYclovi valACYclovi No 1{table BID valACYclov r HCl 1 GM r HCl 1 GM t} ir HCl 1 GM traZODone traZODone No QD traZODone HCl 100 MG HCl 100 MG HCl 100 MG Famotidine Famotidine No 1{table BID Famotidine 20 MG 20 MG t} 20 MG Ipratropium Ipratropium No Ipratropiu [place] 0.02 % 0.02 % 0.02 % guaiFENesin guaiFENesin No 5{ml} QID guaiFENesi -Codeine -Codeine n-Codeine 100-10 100-10 100-10 MG/5ML MG/5ML MG/5ML Ipratropium Ipratropium No 3{ml_as QID Ipratropiu -Albuterol -Albuterol _needed m-Albutero 0.5-2.5 (3) 0.5-2.5 (3) } l 0.5-2.5 MG/3ML MG/3ML (3) MG/3ML Augmentin Augmentin No 1{table BID Augmentin 500-125 MG 500-125 MG t} 500-125 MG Cheratussin Cheratussin No 5{ml} Cheratussi AC 100-10 AC 100-10 n AC MG/5ML MG/5ML 100-10 MG/5ML Triamcinolo Triamcinolo No BID Triamcinol ne ne one Acetonide Acetonide Acetonide 0.1 % 0.1 % 0.1 % Atorvastati Atorvastati No 1{table QD Atorvastat n Calcium n Calcium t_at_be in Calcium 40 MG 40 MG dtime} 40 MG Lidocaine 5 Lidocaine 5 No 1{appli TID Lidocaine % % cation_ 5 % to_affe cted_ar ea_as_n eeded} Flonase 50 Flonase 50 No 2{spray QD Flonase 50 MCG/ACT MCG/ACT _in_eac MCG/ACT h_nostr il} Omeprazole Omeprazole No 1{capsu QD Omeprazole 40 MG 40 MG le} 40 MG HYDROcodone HYDROcodone No 1{table QID HYDROcodon -Acetaminop -Acetaminop t_as_ne e-Acetamin hen 10-325 hen 10-325 eded} ophen MG MG 10-325 MG Albuterol Albuterol No 3{ml_as Albuterol Sulfate Sulfate _needed Sulfate (2.5 (2.5 } (2.5 MG/3ML) MG/3ML) MG/3ML) 0.083% 0.083% 0.083% Levothyroxi Levothyroxi No Levothyrox ne Sodium ne Sodium ine Sodium 50 MCG 50 MCG 50 MCG Lisinopril Lisinopril No Lisinopril 20 MG 20 MG 20 MG Gabapentin Gabapentin No 2{capsu TID Gabapentin 300 MG 300 MG le} 300 MG Augmentin Augmentin No 1{table BID Augmentin 500-125 MG 500-125 MG t} 500-125 MG Potassium Potassium No Potassium Chloride ER Chloride ER Chloride 10 MEQ 10 MEQ ER 10 MEQ predniSONE predniSONE No QD predniSONE 10 MG 10 MG 10 MG Cetirizine Cetirizine No 1{table Cetirizine HCl 10 MG HCl 10 MG t} HCl 10 MG valACYclovi valACYclovi No 1{table BID valACYclov r HCl 1 GM r HCl 1 GM t} ir HCl 1 GM traZODone traZODone No QD traZODone HCl 100 MG HCl 100 MG HCl 100 MG Famotidine Famotidine No 1{table BID Famotidine 20 MG 20 MG t} 20 MG Ipratropium Ipratropium No Ipratropiu [place] 0.02 % 0.02 % 0.02 % guaiFENesin guaiFENesin No 5{ml} QID guaiFENesi -Codeine -Codeine n-Codeine 100-10 100-10 100-10 MG/5ML MG/5ML MG/5ML Ipratropium Ipratropium No 3{ml_as QID Ipratropiu -Albuterol -Albuterol _needed m-Albutero 0.5-2.5 (3) 0.5-2.5 (3) } l 0.5-2.5 MG/3ML MG/3ML (3) MG/3ML Augmentin Augmentin No 1{table BID Augmentin 500-125 MG 500-125 MG t} 500-125 MG Albuterol Albuterol No 3{ml_as Albuterol Sulfate Sulfate _needed Sulfate (2.5 (2.5 } (2.5 MG/3ML) MG/3ML) MG/3ML) 0.083% 0.083% 0.083% guaiFENesin guaiFENesin No 5{ml} QID guaiFENesi -Codeine -Codeine n-Codeine 100-10 100-10 100-10 MG/5ML MG/5ML MG/5ML Lidocaine 5 Lidocaine 5 No 1{appli TID Lidocaine % % cation_ 5 % to_affe cted_ar ea_as_n eeded} Levothyroxi Levothyroxi No Levothyrox ne Sodium ne Sodium ine Sodium 50 MCG 50 MCG 50 MCG Augmentin Augmentin No 1{table BID Augmentin 500-125 MG 500-125 MG t} 500-125 MG Famotidine Famotidine No 1{table BID Famotidine 20 MG 20 MG t} 20 MG Atorvastati Atorvastati No 1{table QD Atorvastat n Calcium n Calcium t_at_be in Calcium 40 MG 40 MG dtime} 40 MG predniSONE predniSONE No QD predniSONE 10 MG 10 MG 10 MG Omeprazole Omeprazole No 1{capsu QD Omeprazole 40 MG 40 MG le} 40 MG Ipratropium Ipratropium No 3{ml_as QID Ipratropiu -Albuterol -Albuterol _needed m-Albutero 0.5-2.5 (3) 0.5-2.5 (3) } l 0.5-2.5 MG/3ML MG/3ML (3) MG/3ML HYDROcodone HYDROcodone No 1{table QID HYDROcodon -Acetaminop -Acetaminop t_as_ne e-Acetamin hen 10-325 hen 10-325 eded} ophen MG MG 10-325 MG Gabapentin Gabapentin No 2{capsu TID Gabapentin 300 MG 300 MG le} 300 MG Augmentin Augmentin No 1{table BID Augmentin 500-125 MG 500-125 MG t} 500-125 MG Ipratropium Ipratropium No Ipratropiu [place] 0.02 % 0.02 % 0.02 % valACYclovi valACYclovi No 1{table BID valACYclov r HCl 1 GM r HCl 1 GM t} ir HCl 1 GM Cheratussin Cheratussin No 5{ml} Cheratussi AC 100-10 AC 100-10 n AC MG/5ML MG/5ML 100-10 MG/5ML Cetirizine Cetirizine No 1{table Cetirizine HCl 10 MG HCl 10 MG t} HCl 10 MG traZODone traZODone No QD traZODone HCl 100 MG HCl 100 MG HCl 100 MG Triamcinolo Triamcinolo No BID Triamcinol ne ne one Acetonide Acetonide Acetonide 0.1 % 0.1 % 0.1 % Lisinopril Lisinopril No Lisinopril 20 MG 20 MG 20 MG Montelukast Montelukast No 1{table QD Montelukas Sodium 10 Sodium 10 t} t Sodium MG MG 10 MG Flonase 50 Flonase 50 No 2{spray QD Flonase 50 MCG/ACT MCG/ACT _in_eac MCG/ACT h_nostr il} Potassium Potassium No Potassium Chloride ER Chloride ER Chloride 10 MEQ 10 MEQ ER 10 MEQ Ventolin Ventolin No 2{puffs QID Ventolin HFA 108 (90 HFA 108 (90 _as_nee HFA 108 Base) Base) ded} (90 Base) MCG/ACT MCG/ACT MCG/ACT Ipratropium Ipratropium No Ipratropiu [place] 0.02 % 0.02 % 0.02 % Lisinopril Lisinopril No Lisinopril 20 MG 20 MG 20 MG Atorvastati Atorvastati No Atorvastat n Calcium n Calcium in Calcium 40 MG 40 MG 40 MG Omeprazole Omeprazole No 1{capsu QD Omeprazole 40 MG 40 MG le} 40 MG HYDROcodone HYDROcodone No 1{table QID HYDROcodon -Acetaminop -Acetaminop t_as_ne e-Acetamin hen 10-325 hen 10-325 eded} ophen MG MG 10-325 MG Triamcinolo Triamcinolo No BID Triamcinol ne ne one Acetonide Acetonide Acetonide 0.1 % 0.1 % 0.1 % Potassium Potassium No Potassium Chloride ER Chloride ER Chloride 10 MEQ 10 MEQ ER 10 MEQ Flonase 50 Flonase 50 No 2{spray QD Flonase 50 MCG/ACT MCG/ACT _in_eac MCG/ACT h_nostr il} Albuterol Albuterol No 3{ml_as Albuterol Sulfate Sulfate _needed Sulfate (2.5 (2.5 } (2.5 MG/3ML) MG/3ML) MG/3ML) 0.083% 0.083% 0.083% Trelegy Trelegy No 1{puff} QD Trelegy Ellipta Ellipta Ellipta 100-62.5-25 100-62.5-25 100-62.5-2 MCG/INH MCG/INH 5 MCG/INH Levothyroxi Levothyroxi No Levothyrox ne Sodium ne Sodium ine Sodium 50 MCG 50 MCG 50 MCG DULoxetine DULoxetine No DULoxetine HCl 60 MG HCl 60 MG HCl 60 MG Gabapentin Gabapentin No 2{capsu TID Gabapentin 300 MG 300 MG le} 300 MG Flonase 50 Flonase 50 No 2{spray QD Flonase 50 MCG/ACT MCG/ACT _in_eac MCG/ACT h_nostr il} Lisinopril Lisinopril No Lisinopril 20 MG 20 MG 20 MG Omeprazole Omeprazole No 1{capsu QD Omeprazole 40 MG 40 MG le} 40 MG DULoxetine DULoxetine No DULoxetine HCl 60 MG HCl 60 MG HCl 60 MG Trelegy Trelegy No 1{puff} QD Trelegy Ellipta Ellipta Ellipta 100-62.5-25 100-62.5-25 100-62.5-2 MCG/INH MCG/INH 5 MCG/INH Ventolin Ventolin No 2{puffs QID Ventolin HFA 108 (90 HFA 108 (90 _as_nee HFA 108 Base) Base) ded} (90 Base) MCG/ACT MCG/ACT MCG/ACT Atorvastati Atorvastati No Atorvastat n Calcium n Calcium in Calcium 40 MG 40 MG 40 MG Albuterol Albuterol No 3{ml_as Albuterol Sulfate Sulfate _needed Sulfate (2.5 (2.5 } (2.5 MG/3ML) MG/3ML) MG/3ML) 0.083% 0.083% 0.083% Potassium Potassium No Potassium Chloride ER Chloride ER Chloride 10 MEQ 10 MEQ ER 10 MEQ Ipratropium Ipratropium No Ipratropiu [place] 0.02 % 0.02 % 0.02 % Levothyroxi Levothyroxi No Levothyrox ne Sodium ne Sodium ine Sodium 50 MCG 50 MCG 50 MCG Gabapentin Gabapentin No 2{capsu TID Gabapentin 300 MG 300 MG le} 300 MG Triamcinolo Triamcinolo No BID Triamcinol ne ne one Acetonide Acetonide Acetonide 0.1 % 0.1 % 0.1 % HYDROcodone HYDROcodone No 1{table QID HYDROcodon -Acetaminop -Acetaminop t_as_ne e-Acetamin hen 10-325 hen 10-325 eded} ophen MG MG 10-325 MG Flonase 50 Flonase 50 No 2{spray QD Flonase 50 MCG/ACT MCG/ACT _in_eac MCG/ACT h_nostr il} Lisinopril Lisinopril No Lisinopril 20 MG 20 MG 20 MG Omeprazole Omeprazole No 1{capsu QD Omeprazole 40 MG 40 MG le} 40 MG DULoxetine DULoxetine No DULoxetine HCl 60 MG HCl 60 MG HCl 60 MG Trelegy Trelegy No 1{puff} QD Trelegy Ellipta Ellipta Ellipta 100-62.5-25 100-62.5-25 100-62.5-2 MCG/INH MCG/INH 5 MCG/INH Ventolin Ventolin No 2{puffs QID Ventolin HFA 108 (90 HFA 108 (90 _as_nee HFA 108 Base) Base) ded} (90 Base) MCG/ACT MCG/ACT MCG/ACT Atorvastati Atorvastati No Atorvastat n Calcium n Calcium in Calcium 40 MG 40 MG 40 MG Albuterol Albuterol No 3{ml_as Albuterol Sulfate Sulfate _needed Sulfate (2.5 (2.5 } (2.5 MG/3ML) MG/3ML) MG/3ML) 0.083% 0.083% 0.083% Potassium Potassium No Potassium Chloride ER Chloride ER Chloride 10 MEQ 10 MEQ ER 10 MEQ Ipratropium Ipratropium No Ipratropiu [place] 0.02 % 0.02 % 0.02 % Levothyroxi Levothyroxi No Levothyrox ne Sodium ne Sodium ine Sodium 50 MCG 50 MCG 50 MCG Gabapentin Gabapentin No 2{capsu TID Gabapentin 300 MG 300 MG le} 300 MG Triamcinolo Triamcinolo No BID Triamcinol ne ne one Acetonide Acetonide Acetonide 0.1 % 0.1 % 0.1 % HYDROcodone HYDROcodone No 1{table QID HYDROcodon -Acetaminop -Acetaminop t_as_ne e-Acetamin hen 10-325 hen 10-325 eded} ophen MG MG 10-325 MG Flonase 50 Flonase 50 No 2{spray QD Flonase 50 MCG/ACT MCG/ACT _in_eac MCG/ACT h_nostr il} Lisinopril Lisinopril No Lisinopril 20 MG 20 MG 20 MG Omeprazole Omeprazole No 1{capsu QD Omeprazole 40 MG 40 MG le} 40 MG DULoxetine DULoxetine No DULoxetine HCl 60 MG HCl 60 MG HCl 60 MG Trelegy Trelegy No 1{puff} QD Trelegy Ellipta Ellipta Ellipta 100-62.5-25 100-62.5-25 100-62.5-2 MCG/INH MCG/INH 5 MCG/INH Ventolin Ventolin No 2{puffs QID Ventolin HFA 108 (90 HFA 108 (90 _as_nee HFA 108 Base) Base) ded} (90 Base) MCG/ACT MCG/ACT MCG/ACT Atorvastati Atorvastati No Atorvastat n Calcium n Calcium in Calcium 40 MG 40 MG 40 MG Albuterol Albuterol No 3{ml_as Albuterol Sulfate Sulfate _needed Sulfate (2.5 (2.5 } (2.5 MG/3ML) MG/3ML) MG/3ML) 0.083% 0.083% 0.083% Potassium Potassium No Potassium Chloride ER Chloride ER Chloride 10 MEQ 10 MEQ ER 10 MEQ Ipratropium Ipratropium No Ipratropiu [place] 0.02 % 0.02 % 0.02 % Levothyroxi Levothyroxi No Levothyrox ne Sodium ne Sodium ine Sodium 50 MCG 50 MCG 50 MCG Gabapentin Gabapentin No 2{capsu TID Gabapentin 300 MG 300 MG le} 300 MG Triamcinolo Triamcinolo No BID Triamcinol ne ne one Acetonide Acetonide Acetonide 0.1 % 0.1 % 0.1 % HYDROcodone HYDROcodone No 1{table QID HYDROcodon -Acetaminop -Acetaminop t_as_ne e-Acetamin hen 10-325 hen 10-325 eded} ophen MG MG 10-325 MG DULoxetine DULoxetine No DULoxetine HCl 60 MG HCl 60 MG HCl 60 MG Flonase 50 Flonase 50 No 2{spray QD Flonase 50 MCG/ACT MCG/ACT _in_eac MCG/ACT h_nostr il} Omeprazole Omeprazole No 1{capsu QD Omeprazole 40 MG 40 MG le} 40 MG Gabapentin Gabapentin No 2{capsu TID Gabapentin 300 MG 300 MG le} 300 MG Trelegy Trelegy No 1{puff} QD Trelegy Ellipta Ellipta Ellipta 100-62.5-25 100-62.5-25 100-62.5-2 MCG/INH MCG/INH 5 MCG/INH Ventolin Ventolin No 2{puffs QID Ventolin HFA 108 (90 HFA 108 (90 _as_nee HFA 108 Base) Base) ded} (90 Base) MCG/ACT MCG/ACT MCG/ACT Atorvastati Atorvastati No Atorvastat n Calcium n Calcium in Calcium 40 MG 40 MG 40 MG Albuterol Albuterol No 3{ml_as Albuterol Sulfate Sulfate _needed Sulfate (2.5 (2.5 } (2.5 MG/3ML) MG/3ML) MG/3ML) 0.083% 0.083% 0.083% HYDROcodone HYDROcodone No 1{table QID HYDROcodon -Acetaminop -Acetaminop t_as_ne e-Acetamin hen 10-325 hen 10-325 eded} ophen MG MG 10-325 MG Ipratropium Ipratropium No Ipratropiu [place] 0.02 % 0.02 % 0.02 % Levothyroxi Levothyroxi No Levothyrox ne Sodium ne Sodium ine Sodium 50 MCG 50 MCG 50 MCG Potassium Potassium No Potassium Chloride ER Chloride ER Chloride 10 MEQ 10 MEQ ER 10 MEQ Triamcinolo Triamcinolo No BID Triamcinol ne ne one Acetonide Acetonide Acetonide 0.1 % 0.1 % 0.1 % Lisinopril Lisinopril No Lisinopril 20 MG 20 MG 20 MG DULoxetine DULoxetine No HCl 60 MG HCl 60 MG Flonase 50 Flonase 50 No 2{spray QD MCG/ACT MCG/ACT _in_eac h_nostr il} Omeprazole Omeprazole No 1{capsu QD 40 MG 40 MG le} Gabapentin Gabapentin No 2{capsu TID 300 MG 300 MG le} Trelegy Trelegy No 1{puff} QD Ellipta Ellipta 100-62.5-25 100-62.5-25 MCG/INH MCG/INH Ventolin Ventolin No 2{puffs QID HFA 108 (90 HFA 108 (90 _as_nee Base) Base) ded} MCG/ACT MCG/ACT Atorvastati Atorvastati No n Calcium n Calcium 40 MG 40 MG Albuterol Albuterol No 3{ml_as Sulfate Sulfate _needed (2.5 (2.5 } MG/3ML) MG/3ML) 0.083% 0.083% HYDROcodone HYDROcodone No 1{table QID -Acetaminop -Acetaminop t_as_ne hen 10-325 hen 10-325 eded} MG MG Ipratropium Ipratropium No [place] 0.02 % 0.02 % Levothyroxi Levothyroxi No ne Sodium ne Sodium 50 MCG 50 MCG Potassium Potassium No Chloride ER Chloride ER 10 MEQ 10 MEQ Triamcinolo Triamcinolo No BID ne ne Acetonide Acetonide 0.1 % 0.1 % Lisinopril Lisinopril No 20 MG 20 MG DULoxetine DULoxetine No DULoxetine HCl 60 MG HCl 60 MG HCl 60 MG Flonase 50 Flonase 50 No 2{spray QD Flonase 50 MCG/ACT MCG/ACT _in_eac MCG/ACT h_nostr il} Omeprazole Omeprazole No 1{capsu QD Omeprazole 40 MG 40 MG le} 40 MG Gabapentin Gabapentin No 2{capsu TID Gabapentin 300 MG 300 MG le} 300 MG Trelegy Trelegy No 1{puff} QD Trelegy Ellipta Ellipta Ellipta 100-62.5-25 100-62.5-25 100-62.5-2 MCG/INH MCG/INH 5 MCG/INH Ventolin Ventolin No 2{puffs QID Ventolin HFA 108 (90 HFA 108 (90 _as_nee HFA 108 Base) Base) ded} (90 Base) MCG/ACT MCG/ACT MCG/ACT Atorvastati Atorvastati No Atorvastat n Calcium n Calcium in Calcium 40 MG 40 MG 40 MG Albuterol Albuterol No 3{ml_as Albuterol Sulfate Sulfate _needed Sulfate (2.5 (2.5 } (2.5 MG/3ML) MG/3ML) MG/3ML) 0.083% 0.083% 0.083% HYDROcodone HYDROcodone No 1{table QID HYDROcodon -Acetaminop -Acetaminop t_as_ne e-Acetamin hen 10-325 hen 10-325 eded} ophen MG MG 10-325 MG Ipratropium Ipratropium No Ipratropiu [place] 0.02 % 0.02 % 0.02 % Levothyroxi Levothyroxi No Levothyrox ne Sodium ne Sodium ine Sodium 50 MCG 50 MCG 50 MCG Potassium Potassium No Potassium Chloride ER Chloride ER Chloride 10 MEQ 10 MEQ ER 10 MEQ Triamcinolo Triamcinolo No BID Triamcinol ne ne one Acetonide Acetonide Acetonide 0.1 % 0.1 % 0.1 % Lisinopril Lisinopril No Lisinopril 20 MG 20 MG 20 MG DULoxetine DULoxetine No HCl 60 MG HCl 60 MG Flonase 50 Flonase 50 No 2{spray QD MCG/ACT MCG/ACT _in_eac h_nostr il} Omeprazole Omeprazole No 1{capsu QD 40 MG 40 MG le} Gabapentin Gabapentin No 2{capsu TID 300 MG 300 MG le} Trelegy Trelegy No 1{puff} QD Ellipta Ellipta 100-62.5-25 100-62.5-25 MCG/INH MCG/INH Ventolin Ventolin No 2{puffs QID HFA 108 (90 HFA 108 (90 _as_nee Base) Base) ded} MCG/ACT MCG/ACT Atorvastati Atorvastati No n Calcium n Calcium 40 MG 40 MG Albuterol Albuterol No 3{ml_as Sulfate Sulfate _needed (2.5 (2.5 } MG/3ML) MG/3ML) 0.083% 0.083% HYDROcodone HYDROcodone No 1{table QID -Acetaminop -Acetaminop t_as_ne hen 10-325 hen 10-325 eded} MG MG Ipratropium Ipratropium No [place] 0.02 % 0.02 % Levothyroxi Levothyroxi No ne Sodium ne Sodium 50 MCG 50 MCG Potassium Potassium No Chloride ER Chloride ER 10 MEQ 10 MEQ Triamcinolo Triamcinolo No BID ne ne Acetonide Acetonide 0.1 % 0.1 % Lisinopril Lisinopril No 20 MG 20 MG DULoxetine DULoxetine No DULoxetine HCl 60 MG HCl 60 MG HCl 60 MG Flonase 50 Flonase 50 No 2{spray QD Flonase 50 MCG/ACT MCG/ACT _in_eac MCG/ACT h_nostr il} Omeprazole Omeprazole No 1{capsu QD Omeprazole 40 MG 40 MG le} 40 MG Gabapentin Gabapentin No 2{capsu TID Gabapentin 300 MG 300 MG le} 300 MG Trelegy Trelegy No 1{puff} QD Trelegy Ellipta Ellipta Ellipta 100-62.5-25 100-62.5-25 100-62.5-2 MCG/INH MCG/INH 5 MCG/INH Ventolin Ventolin No 2{puffs QID Ventolin HFA 108 (90 HFA 108 (90 _as_nee HFA 108 Base) Base) ded} (90 Base) MCG/ACT MCG/ACT MCG/ACT Atorvastati Atorvastati No Atorvastat n Calcium n Calcium in Calcium 40 MG 40 MG 40 MG Albuterol Albuterol No 3{ml_as Albuterol Sulfate Sulfate _needed Sulfate (2.5 (2.5 } (2.5 MG/3ML) MG/3ML) MG/3ML) 0.083% 0.083% 0.083% HYDROcodone HYDROcodone No 1{table QID HYDROcodon -Acetaminop -Acetaminop t_as_ne e-Acetamin hen 10-325 hen 10-325 eded} ophen MG MG 10-325 MG Ipratropium Ipratropium No Ipratropiu [place] 0.02 % 0.02 % 0.02 % Levothyroxi Levothyroxi No Levothyrox ne Sodium ne Sodium ine Sodium 50 MCG 50 MCG 50 MCG Potassium Potassium No Potassium Chloride ER Chloride ER Chloride 10 MEQ 10 MEQ ER 10 MEQ Triamcinolo Triamcinolo No BID Triamcinol ne ne one Acetonide Acetonide Acetonide 0.1 % 0.1 % 0.1 % Lisinopril Lisinopril No Lisinopril 20 MG 20 MG 20 MG DULoxetine DULoxetine No DULoxetine HCl 60 MG HCl 60 MG HCl 60 MG Flonase 50 Flonase 50 No 2{spray QD Flonase 50 MCG/ACT MCG/ACT _in_eac MCG/ACT h_nostr il} Omeprazole Omeprazole No 1{capsu QD Omeprazole 40 MG 40 MG le} 40 MG Gabapentin Gabapentin No 2{capsu TID Gabapentin 300 MG 300 MG le} 300 MG Trelegy Trelegy No 1{puff} QD Trelegy Ellipta Ellipta Ellipta 100-62.5-25 100-62.5-25 100-62.5-2 MCG/INH MCG/INH 5 MCG/INH Ventolin Ventolin No 2{puffs QID Ventolin HFA 108 (90 HFA 108 (90 _as_nee HFA 108 Base) Base) ded} (90 Base) MCG/ACT MCG/ACT MCG/ACT Atorvastati Atorvastati No Atorvastat n Calcium n Calcium in Calcium 40 MG 40 MG 40 MG Albuterol Albuterol No 3{ml_as Albuterol Sulfate Sulfate _needed Sulfate (2.5 (2.5 } (2.5 MG/3ML) MG/3ML) MG/3ML) 0.083% 0.083% 0.083% HYDROcodone HYDROcodone No 1{table QID HYDROcodon -Acetaminop -Acetaminop t_as_ne e-Acetamin hen 10-325 hen 10-325 eded} ophen MG MG 10-325 MG Ipratropium Ipratropium No Ipratropiu [place] 0.02 % 0.02 % 0.02 % Levothyroxi Levothyroxi No Levothyrox ne Sodium ne Sodium ine Sodium 50 MCG 50 MCG 50 MCG Potassium Potassium No Potassium Chloride ER Chloride ER Chloride 10 MEQ 10 MEQ ER 10 MEQ Triamcinolo Triamcinolo No BID Triamcinol ne ne one Acetonide Acetonide Acetonide 0.1 % 0.1 % 0.1 % Lisinopril Lisinopril No Lisinopril 20 MG 20 MG 20 MG DULoxetine DULoxetine No DULoxetine HCl 60 MG HCl 60 MG HCl 60 MG Flonase 50 Flonase 50 No 2{spray QD Flonase 50 MCG/ACT MCG/ACT _in_eac MCG/ACT h_nostr il} Gabapentin Gabapentin No 2{capsu TID Gabapentin 300 MG 300 MG le} 300 MG Omeprazole Omeprazole No 1{capsu QD Omeprazole 40 MG 40 MG le} 40 MG traZODone traZODone No traZODone HCl 50 MG HCl 50 MG HCl 50 MG Trelegy Trelegy No 1{puff} QD Trelegy Ellipta Ellipta Ellipta 100-62.5-25 100-62.5-25 100-62.5-2 MCG/INH MCG/INH 5 MCG/INH Ventolin Ventolin No 2{puffs QID Ventolin HFA 108 (90 HFA 108 (90 _as_nee HFA 108 Base) Base) ded} (90 Base) MCG/ACT MCG/ACT MCG/ACT Atorvastati Atorvastati No Atorvastat n Calcium n Calcium in Calcium 40 MG 40 MG 40 MG Albuterol Albuterol No 3{ml_as Albuterol Sulfate Sulfate _needed Sulfate (2.5 (2.5 } (2.5 MG/3ML) MG/3ML) MG/3ML) 0.083% 0.083% 0.083% HYDROcodone HYDROcodone No 1{table QID HYDROcodon -Acetaminop -Acetaminop t_as_ne e-Acetamin hen 10-325 hen 10-325 eded} ophen MG MG 10-325 MG Ipratropium Ipratropium No Ipratropiu [place] 0.02 % 0.02 % 0.02 % Levothyroxi Levothyroxi No Levothyrox ne Sodium ne Sodium ine Sodium 50 MCG 50 MCG 50 MCG Potassium Potassium No Potassium Chloride ER Chloride ER Chloride 10 MEQ 10 MEQ ER 10 MEQ Triamcinolo Triamcinolo No BID Triamcinol ne ne one Acetonide Acetonide Acetonide 0.1 % 0.1 % 0.1 % Lisinopril Lisinopril No Lisinopril 20 MG 20 MG 20 MG DULoxetine DULoxetine No DULoxetine HCl 60 MG HCl 60 MG HCl 60 MG Flonase 50 Flonase 50 No 2{spray QD Flonase 50 MCG/ACT MCG/ACT _in_eac MCG/ACT h_nostr il} Gabapentin Gabapentin No 2{capsu TID Gabapentin 300 MG 300 MG le} 300 MG Omeprazole Omeprazole No 1{capsu QD Omeprazole 40 MG 40 MG le} 40 MG traZODone traZODone No traZODone HCl 50 MG HCl 50 MG HCl 50 MG Trelegy Trelegy No 1{puff} QD Trelegy Ellipta Ellipta Ellipta 100-62.5-25 100-62.5-25 100-62.5-2 MCG/INH MCG/INH 5 MCG/INH Ventolin Ventolin No 2{puffs QID Ventolin HFA 108 (90 HFA 108 (90 _as_nee HFA 108 Base) Base) ded} (90 Base) MCG/ACT MCG/ACT MCG/ACT Atorvastati Atorvastati No Atorvastat n Calcium n Calcium in Calcium 40 MG 40 MG 40 MG Albuterol Albuterol No 3{ml_as Albuterol Sulfate Sulfate _needed Sulfate (2.5 (2.5 } (2.5 MG/3ML) MG/3ML) MG/3ML) 0.083% 0.083% 0.083% HYDROcodone HYDROcodone No 1{table QID HYDROcodon -Acetaminop -Acetaminop t_as_ne e-Acetamin hen 10-325 hen 10-325 eded} ophen MG MG 10-325 MG Ipratropium Ipratropium No Ipratropiu [place] 0.02 % 0.02 % 0.02 % Levothyroxi Levothyroxi No Levothyrox ne Sodium ne Sodium ine Sodium 50 MCG 50 MCG 50 MCG Potassium Potassium No Potassium Chloride ER Chloride ER Chloride 10 MEQ 10 MEQ ER 10 MEQ Triamcinolo Triamcinolo No BID Triamcinol ne ne one Acetonide Acetonide Acetonide 0.1 % 0.1 % 0.1 % Lisinopril Lisinopril No Lisinopril 20 MG 20 MG 20 MG DULoxetine DULoxetine No DULoxetine HCl 60 MG HCl 60 MG HCl 60 MG Flonase 50 Flonase 50 No 2{spray QD Flonase 50 MCG/ACT MCG/ACT _in_eac MCG/ACT h_nostr il} Gabapentin Gabapentin No 2{capsu TID Gabapentin 300 MG 300 MG le} 300 MG Omeprazole Omeprazole No 1{capsu QD Omeprazole 40 MG 40 MG le} 40 MG traZODone traZODone No traZODone HCl 50 MG HCl 50 MG HCl 50 MG Trelegy Trelegy No 1{puff} QD Trelegy Ellipta Ellipta Ellipta 100-62.5-25 100-62.5-25 100-62.5-2 MCG/INH MCG/INH 5 MCG/INH Ventolin Ventolin No 2{puffs QID Ventolin HFA 108 (90 HFA 108 (90 _as_nee HFA 108 Base) Base) ded} (90 Base) MCG/ACT MCG/ACT MCG/ACT Atorvastati Atorvastati No Atorvastat n Calcium n Calcium in Calcium 40 MG 40 MG 40 MG Albuterol Albuterol No 3{ml_as Albuterol Sulfate Sulfate _needed Sulfate (2.5 (2.5 } (2.5 MG/3ML) MG/3ML) MG/3ML) 0.083% 0.083% 0.083% HYDROcodone HYDROcodone No 1{table QID HYDROcodon -Acetaminop -Acetaminop t_as_ne e-Acetamin hen 10-325 hen 10-325 eded} ophen MG MG 10-325 MG Ipratropium Ipratropium No Ipratropiu [place] 0.02 % 0.02 % 0.02 % Levothyroxi Levothyroxi No Levothyrox ne Sodium ne Sodium ine Sodium 50 MCG 50 MCG 50 MCG Potassium Potassium No Potassium Chloride ER Chloride ER Chloride 10 MEQ 10 MEQ ER 10 MEQ Triamcinolo Triamcinolo No BID Triamcinol ne ne one Acetonide Acetonide Acetonide 0.1 % 0.1 % 0.1 % Lisinopril Lisinopril No Lisinopril 20 MG 20 MG 20 MG DULoxetine DULoxetine No DULoxetine HCl 60 MG HCl 60 MG HCl 60 MG Flonase 50 Flonase 50 No 2{spray QD Flonase 50 MCG/ACT MCG/ACT _in_eac MCG/ACT h_nostr il} Gabapentin Gabapentin No 2{capsu TID Gabapentin 300 MG 300 MG le} 300 MG Omeprazole Omeprazole No 1{capsu QD Omeprazole 40 MG 40 MG le} 40 MG traZODone traZODone No traZODone HCl 50 MG HCl 50 MG HCl 50 MG Trelegy Trelegy No 1{puff} QD Trelegy Ellipta Ellipta Ellipta 100-62.5-25 100-62.5-25 100-62.5-2 MCG/INH MCG/INH 5 MCG/INH Ventolin Ventolin No 2{puffs QID Ventolin HFA 108 (90 HFA 108 (90 _as_nee HFA 108 Base) Base) ded} (90 Base) MCG/ACT MCG/ACT MCG/ACT Atorvastati Atorvastati No Atorvastat n Calcium n Calcium in Calcium 40 MG 40 MG 40 MG Albuterol Albuterol No 3{ml_as Albuterol Sulfate Sulfate _needed Sulfate (2.5 (2.5 } (2.5 MG/3ML) MG/3ML) MG/3ML) 0.083% 0.083% 0.083% HYDROcodone HYDROcodone No 1{table QID HYDROcodon -Acetaminop -Acetaminop t_as_ne e-Acetamin hen 10-325 hen 10-325 eded} ophen MG MG 10-325 MG Ipratropium Ipratropium No Ipratropiu [place] 0.02 % 0.02 % 0.02 % Levothyroxi Levothyroxi No Levothyrox ne Sodium ne Sodium ine Sodium 50 MCG 50 MCG 50 MCG Potassium Potassium No Potassium Chloride ER Chloride ER Chloride 10 MEQ 10 MEQ ER 10 MEQ Triamcinolo Triamcinolo No BID Triamcinol ne ne one Acetonide Acetonide Acetonide 0.1 % 0.1 % 0.1 % Lisinopril Lisinopril No Lisinopril 20 MG 20 MG 20 MG HYDROcodone HYDROcodone No 1{table QID HYDROcodon -Acetaminop -Acetaminop t_as_ne e-Acetamin hen 10-325 hen 10-325 eded} ophen MG MG 10-325 MG Albuterol Albuterol No 3{ml_as Albuterol Sulfate Sulfate _needed Sulfate (2.5 (2.5 } (2.5 MG/3ML) MG/3ML) MG/3ML) 0.083% 0.083% 0.083% traZODone traZODone No traZODone HCl 50 MG HCl 50 MG HCl 50 MG Levothyroxi Levothyroxi No Levothyrox ne Sodium ne Sodium ine Sodium 50 MCG 50 MCG 50 MCG Flonase 50 Flonase 50 No 2{spray QD Flonase 50 MCG/ACT MCG/ACT _in_eac MCG/ACT h_nostr il} Triamcinolo Triamcinolo No BID Triamcinol ne ne one Acetonide Acetonide Acetonide 0.1 % 0.1 % 0.1 % Trelegy Trelegy No 1{puff} QD Trelegy Ellipta Ellipta Ellipta 100-62.5-25 100-62.5-25 100-62.5-2 MCG/INH MCG/INH 5 MCG/INH Omeprazole Omeprazole No 1{capsu QD Omeprazole 40 MG 40 MG le} 40 MG Potassium Potassium No Potassium Chloride ER Chloride ER Chloride 10 MEQ 10 MEQ ER 10 MEQ Lisinopril Lisinopril No Lisinopril 20 MG 20 MG 20 MG Ventolin Ventolin No 2{puffs QID Ventolin HFA 108 (90 HFA 108 (90 _as_nee HFA 108 Base) Base) ded} (90 Base) MCG/ACT MCG/ACT MCG/ACT DULoxetine DULoxetine No DULoxetine HCl 60 MG HCl 60 MG HCl 60 MG Gabapentin Gabapentin No 2{capsu TID Gabapentin 300 MG 300 MG le} 300 MG Atorvastati Atorvastati No Atorvastat n Calcium n Calcium in Calcium 40 MG 40 MG 40 MG Ipratropium Ipratropium No Ipratropiu [place] 0.02 % 0.02 % 0.02 % HYDROcodone HYDROcodone No 1{table QID HYDROcodon -Acetaminop -Acetaminop t_as_ne e-Acetamin hen 10-325 hen 10-325 eded} ophen MG MG 10-325 MG Albuterol Albuterol No 3{ml_as Albuterol Sulfate Sulfate _needed Sulfate (2.5 (2.5 } (2.5 MG/3ML) MG/3ML) MG/3ML) 0.083% 0.083% 0.083% traZODone traZODone No traZODone HCl 50 MG HCl 50 MG HCl 50 MG Levothyroxi Levothyroxi No Levothyrox ne Sodium ne Sodium ine Sodium 50 MCG 50 MCG 50 MCG Flonase 50 Flonase 50 No 2{spray QD Flonase 50 MCG/ACT MCG/ACT _in_eac MCG/ACT h_nostr il} Triamcinolo Triamcinolo No BID Triamcinol ne ne one Acetonide Acetonide Acetonide 0.1 % 0.1 % 0.1 % Trelegy Trelegy No 1{puff} QD Trelegy Ellipta Ellipta Ellipta 100-62.5-25 100-62.5-25 100-62.5-2 MCG/INH MCG/INH 5 MCG/INH Omeprazole Omeprazole No 1{capsu QD Omeprazole 40 MG 40 MG le} 40 MG Potassium Potassium No Potassium Chloride ER Chloride ER Chloride 10 MEQ 10 MEQ ER 10 MEQ Lisinopril Lisinopril No Lisinopril 20 MG 20 MG 20 MG Ventolin Ventolin No 2{puffs QID Ventolin HFA 108 (90 HFA 108 (90 _as_nee HFA 108 Base) Base) ded} (90 Base) MCG/ACT MCG/ACT MCG/ACT DULoxetine DULoxetine No DULoxetine HCl 60 MG HCl 60 MG HCl 60 MG Gabapentin Gabapentin No 2{capsu TID Gabapentin 300 MG 300 MG le} 300 MG Atorvastati Atorvastati No Atorvastat n Calcium n Calcium in Calcium 40 MG 40 MG 40 MG Ipratropium Ipratropium No Ipratropiu [place] 0.02 % 0.02 % 0.02 % HYDROcodone HYDROcodone No 1{table QID HYDROcodon -Acetaminop -Acetaminop t_as_ne e-Acetamin hen 10-325 hen 10-325 eded} ophen MG MG 10-325 MG Albuterol Albuterol No 3{ml_as Albuterol Sulfate Sulfate _needed Sulfate (2.5 (2.5 } (2.5 MG/3ML) MG/3ML) MG/3ML) 0.083% 0.083% 0.083% traZODone traZODone No traZODone HCl 50 MG HCl 50 MG HCl 50 MG Levothyroxi Levothyroxi No Levothyrox ne Sodium ne Sodium ine Sodium 50 MCG 50 MCG 50 MCG Flonase 50 Flonase 50 No 2{spray QD Flonase 50 MCG/ACT MCG/ACT _in_eac MCG/ACT h_nostr il} Triamcinolo Triamcinolo No BID Triamcinol ne ne one Acetonide Acetonide Acetonide 0.1 % 0.1 % 0.1 % Trelegy Trelegy No 1{puff} QD Trelegy Ellipta Ellipta Ellipta 100-62.5-25 100-62.5-25 100-62.5-2 MCG/INH MCG/INH 5 MCG/INH Omeprazole Omeprazole No 1{capsu QD Omeprazole 40 MG 40 MG le} 40 MG Potassium Potassium No Potassium Chloride ER Chloride ER Chloride 10 MEQ 10 MEQ ER 10 MEQ Lisinopril Lisinopril No Lisinopril 20 MG 20 MG 20 MG Ventolin Ventolin No 2{puffs QID Ventolin HFA 108 (90 HFA 108 (90 _as_nee HFA 108 Base) Base) ded} (90 Base) MCG/ACT MCG/ACT MCG/ACT DULoxetine DULoxetine No DULoxetine HCl 60 MG HCl 60 MG HCl 60 MG Gabapentin Gabapentin No 2{capsu TID Gabapentin 300 MG 300 MG le} 300 MG Atorvastati Atorvastati No Atorvastat n Calcium n Calcium in Calcium 40 MG 40 MG 40 MG Ipratropium Ipratropium No Ipratropiu [place] 0.02 % 0.02 % 0.02 % HYDROcodone HYDROcodone No 1{table QID HYDROcodon -Acetaminop -Acetaminop t_as_ne e-Acetamin hen 10-325 hen 10-325 eded} ophen MG MG 10-325 MG Albuterol Albuterol No 3{ml_as Albuterol Sulfate Sulfate _needed Sulfate (2.5 (2.5 } (2.5 MG/3ML) MG/3ML) MG/3ML) 0.083% 0.083% 0.083% traZODone traZODone No traZODone HCl 50 MG HCl 50 MG HCl 50 MG Levothyroxi Levothyroxi No Levothyrox ne Sodium ne Sodium ine Sodium 50 MCG 50 MCG 50 MCG Flonase 50 Flonase 50 No 2{spray QD Flonase 50 MCG/ACT MCG/ACT _in_eac MCG/ACT h_nostr il} Triamcinolo Triamcinolo No BID Triamcinol ne ne one Acetonide Acetonide Acetonide 0.1 % 0.1 % 0.1 % Trelegy Trelegy No 1{puff} QD Trelegy Ellipta Ellipta Ellipta 100-62.5-25 100-62.5-25 100-62.5-2 MCG/INH MCG/INH 5 MCG/INH Omeprazole Omeprazole No 1{capsu QD Omeprazole 40 MG 40 MG le} 40 MG Potassium Potassium No Potassium Chloride ER Chloride ER Chloride 10 MEQ 10 MEQ ER 10 MEQ Lisinopril Lisinopril No Lisinopril 20 MG 20 MG 20 MG Ventolin Ventolin No 2{puffs QID Ventolin HFA 108 (90 HFA 108 (90 _as_nee HFA 108 Base) Base) ded} (90 Base) MCG/ACT MCG/ACT MCG/ACT DULoxetine DULoxetine No DULoxetine HCl 60 MG HCl 60 MG HCl 60 MG Gabapentin Gabapentin No 2{capsu TID Gabapentin 300 MG 300 MG le} 300 MG Atorvastati Atorvastati No Atorvastat n Calcium n Calcium in Calcium 40 MG 40 MG 40 MG Ipratropium Ipratropium No Ipratropiu [place] 0.02 % 0.02 % 0.02 % Gabapentin Gabapentin No QD Gabapentin 300 MG 300 MG 300 MG Atorvastati Atorvastati No Atorvastat n Calcium n Calcium in Calcium 40 MG 40 MG 40 MG Flonase 50 Flonase 50 No 2{spray QD Flonase 50 MCG/ACT MCG/ACT _in_eac MCG/ACT h_nostr il} DULoxetine DULoxetine No DULoxetine HCl 60 MG HCl 60 MG HCl 60 MG Trelegy Trelegy No 1{puff} QD Trelegy Ellipta Ellipta Ellipta 100-62.5-25 100-62.5-25 100-62.5-2 MCG/INH MCG/INH 5 MCG/INH Lisinopril Lisinopril No Lisinopril 20 MG 20 MG 20 MG Ventolin Ventolin No 2{puffs QID Ventolin HFA 108 (90 HFA 108 (90 _as_nee HFA 108 Base) Base) ded} (90 Base) MCG/ACT MCG/ACT MCG/ACT valACYclovi valACYclovi No 1{table BID valACYclov r HCl 1 GM r HCl 1 GM t} ir HCl 1 GM Omeprazole Omeprazole No 1{capsu QD Omeprazole 40 MG 40 MG le} 40 MG Albuterol Albuterol No 3{ml_as Albuterol Sulfate Sulfate _needed Sulfate (2.5 (2.5 } (2.5 MG/3ML) MG/3ML) MG/3ML) 0.083% 0.083% 0.083% Lidocaine 5 Lidocaine 5 No 1{appli TID Lidocaine % % cation_ 5 % to_affe cted_ar ea_as_n eeded} Levothyroxi Levothyroxi No Levothyrox ne Sodium ne Sodium ine Sodium 50 MCG 50 MCG 50 MCG Gabapentin Gabapentin No 2{capsu TID Gabapentin 300 MG 300 MG le} 300 MG traZODone traZODone No traZODone HCl 50 MG HCl 50 MG HCl 50 MG Potassium Potassium No Potassium Chloride ER Chloride ER Chloride 10 MEQ 10 MEQ ER 10 MEQ Ipratropium Ipratropium No Ipratropiu [place] 0.02 % 0.02 % 0.02 % HYDROcodone HYDROcodone No 1{table QID HYDROcodon -Acetaminop -Acetaminop t_as_ne e-Acetamin hen 10-325 hen 10-325 eded} ophen MG MG 10-325 MG Triamcinolo Triamcinolo No BID Triamcinol ne ne one Acetonide Acetonide Acetonide 0.1 % 0.1 % 0.1 % Gabapentin Gabapentin No QD Gabapentin 300 MG 300 MG 300 MG Atorvastati Atorvastati No Atorvastat n Calcium n Calcium in Calcium 40 MG 40 MG 40 MG Flonase 50 Flonase 50 No 2{spray QD Flonase 50 MCG/ACT MCG/ACT _in_eac MCG/ACT h_nostr il} DULoxetine DULoxetine No DULoxetine HCl 60 MG HCl 60 MG HCl 60 MG Trelegy Trelegy No 1{puff} QD Trelegy Ellipta Ellipta Ellipta 100-62.5-25 100-62.5-25 100-62.5-2 MCG/INH MCG/INH 5 MCG/INH Lisinopril Lisinopril No Lisinopril 20 MG 20 MG 20 MG Ventolin Ventolin No 2{puffs QID Ventolin HFA 108 (90 HFA 108 (90 _as_nee HFA 108 Base) Base) ded} (90 Base) MCG/ACT MCG/ACT MCG/ACT valACYclovi valACYclovi No 1{table BID valACYclov r HCl 1 GM r HCl 1 GM t} ir HCl 1 GM Omeprazole Omeprazole No 1{capsu QD Omeprazole 40 MG 40 MG le} 40 MG Albuterol Albuterol No 3{ml_as Albuterol Sulfate Sulfate _needed Sulfate (2.5 (2.5 } (2.5 MG/3ML) MG/3ML) MG/3ML) 0.083% 0.083% 0.083% Lidocaine 5 Lidocaine 5 No 1{appli TID Lidocaine % % cation_ 5 % to_affe cted_ar ea_as_n eeded} Levothyroxi Levothyroxi No Levothyrox ne Sodium ne Sodium ine Sodium 50 MCG 50 MCG 50 MCG Gabapentin Gabapentin No 2{capsu TID Gabapentin 300 MG 300 MG le} 300 MG traZODone traZODone No traZODone HCl 50 MG HCl 50 MG HCl 50 MG Potassium Potassium No Potassium Chloride ER Chloride ER Chloride 10 MEQ 10 MEQ ER 10 MEQ Ipratropium Ipratropium No Ipratropiu [place] 0.02 % 0.02 % 0.02 % HYDROcodone HYDROcodone No 1{table QID HYDROcodon -Acetaminop -Acetaminop t_as_ne e-Acetamin hen 10-325 hen 10-325 eded} ophen MG MG 10-325 MG Triamcinolo Triamcinolo No BID Triamcinol ne ne one Acetonide Acetonide Acetonide 0.1 % 0.1 % 0.1 % Atorvastati Atorvastati No Atorvastat n Calcium n Calcium in Calcium 40 MG 40 MG 40 MG Omeprazole Omeprazole No 1{capsu QD Omeprazole 40 MG 40 MG le} 40 MG Lisinopril Lisinopril No Lisinopril 20 MG 20 MG 20 MG valACYclovi valACYclovi No 1{table BID valACYclov r HCl 1 GM r HCl 1 GM t} ir HCl 1 GM HYDROcodone HYDROcodone No 1{table QID HYDROcodon -Acetaminop -Acetaminop t_as_ne e-Acetamin hen 10-325 hen 10-325 eded} ophen MG MG 10-325 MG Albuterol Albuterol No 3{ml_as Albuterol Sulfate Sulfate _needed Sulfate (2.5 (2.5 } (2.5 MG/3ML) MG/3ML) MG/3ML) 0.083% 0.083% 0.083% Potassium Potassium No Potassium Chloride ER Chloride ER Chloride 10 MEQ 10 MEQ ER 10 MEQ Lidocaine 5 Lidocaine 5 No 1{appli TID Lidocaine % % cation_ 5 % to_affe cted_ar ea_as_n eeded} Ventolin Ventolin No 2{puffs QID Ventolin HFA 108 (90 HFA 108 (90 _as_nee HFA 108 Base) Base) ded} (90 Base) MCG/ACT MCG/ACT MCG/ACT Triamcinolo Triamcinolo No BID Triamcinol ne ne one Acetonide Acetonide Acetonide 0.1 % 0.1 % 0.1 % Levothyroxi Levothyroxi No Levothyrox ne Sodium ne Sodium ine Sodium 50 MCG 50 MCG 50 MCG Ipratropium Ipratropium No Ipratropiu [place] 0.02 % 0.02 % 0.02 % traZODone traZODone No QD traZODone HCl 100 MG HCl 100 MG HCl 100 MG Flonase 50 Flonase 50 No 2{spray QD Flonase 50 MCG/ACT MCG/ACT _in_eac MCG/ACT h_nostr il} Gabapentin Gabapentin No 2{capsu TID Gabapentin 300 MG 300 MG le} 300 MG traZODone traZODone No QD traZODone HCl 100 MG HCl 100 MG HCl 100 MG Triamcinolo Triamcinolo No BID Triamcinol ne ne one Acetonide Acetonide Acetonide 0.1 % 0.1 % 0.1 % Flonase 50 Flonase 50 No 2{spray QD Flonase 50 MCG/ACT MCG/ACT _in_eac MCG/ACT h_nostr il} Potassium Potassium No Potassium Chloride ER Chloride ER Chloride 10 MEQ 10 MEQ ER 10 MEQ Augmentin Augmentin No 1{table BID Augmentin 500-125 MG 500-125 MG t} 500-125 MG Lidocaine 5 Lidocaine 5 No 1{appli TID Lidocaine % % cation_ 5 % to_affe cted_ar ea_as_n eeded} valACYclovi valACYclovi No 1{table BID valACYclov r HCl 1 GM r HCl 1 GM t} ir HCl 1 GM Gabapentin Gabapentin No 2{capsu TID Gabapentin 300 MG 300 MG le} 300 MG Omeprazole Omeprazole No 1{capsu QD Omeprazole 40 MG 40 MG le} 40 MG HYDROcodone HYDROcodone No 1{table QID HYDROcodon -Acetaminop -Acetaminop t_as_ne e-Acetamin hen 10-325 hen 10-325 eded} ophen MG MG 10-325 MG Albuterol Albuterol No 3{ml_as Albuterol Sulfate Sulfate _needed Sulfate (2.5 (2.5 } (2.5 MG/3ML) MG/3ML) MG/3ML) 0.083% 0.083% 0.083% Levothyroxi Levothyroxi No Levothyrox ne Sodium ne Sodium ine Sodium 50 MCG 50 MCG 50 MCG Ventolin Ventolin No 2{puffs QID Ventolin HFA 108 (90 HFA 108 (90 _as_nee HFA 108 Base) Base) ded} (90 Base) MCG/ACT MCG/ACT MCG/ACT Ipratropium Ipratropium No Ipratropiu [place] 0.02 % 0.02 % 0.02 % Atorvastati Atorvastati No Atorvastat n Calcium n Calcium in Calcium 40 MG 40 MG 40 MG Lisinopril Lisinopril No Lisinopril 20 MG 20 MG 20 MG traZODone traZODone No QD traZODone HCl 100 MG HCl 100 MG HCl 100 MG Triamcinolo Triamcinolo No BID Triamcinol ne ne one Acetonide Acetonide Acetonide 0.1 % 0.1 % 0.1 % Flonase 50 Flonase 50 No 2{spray QD Flonase 50 MCG/ACT MCG/ACT _in_eac MCG/ACT h_nostr il} Potassium Potassium No Potassium Chloride ER Chloride ER Chloride 10 MEQ 10 MEQ ER 10 MEQ Augmentin Augmentin No 1{table BID Augmentin 500-125 MG 500-125 MG t} 500-125 MG Lidocaine 5 Lidocaine 5 No 1{appli TID Lidocaine % % cation_ 5 % to_affe cted_ar ea_as_n eeded} valACYclovi valACYclovi No 1{table BID valACYclov r HCl 1 GM r HCl 1 GM t} ir HCl 1 GM Gabapentin Gabapentin No 2{capsu TID Gabapentin 300 MG 300 MG le} 300 MG Omeprazole Omeprazole No 1{capsu QD Omeprazole 40 MG 40 MG le} 40 MG HYDROcodone HYDROcodone No 1{table QID HYDROcodon -Acetaminop -Acetaminop t_as_ne e-Acetamin hen 10-325 hen 10-325 eded} ophen MG MG 10-325 MG Albuterol Albuterol No 3{ml_as Albuterol Sulfate Sulfate _needed Sulfate (2.5 (2.5 } (2.5 MG/3ML) MG/3ML) MG/3ML) 0.083% 0.083% 0.083% Levothyroxi Levothyroxi No Levothyrox ne Sodium ne Sodium ine Sodium 50 MCG 50 MCG 50 MCG Ventolin Ventolin No 2{puffs QID Ventolin HFA 108 (90 HFA 108 (90 _as_nee HFA 108 Base) Base) ded} (90 Base) MCG/ACT MCG/ACT MCG/ACT Ipratropium Ipratropium No Ipratropiu [place] 0.02 % 0.02 % 0.02 % Atorvastati Atorvastati No Atorvastat n Calcium n Calcium in Calcium 40 MG 40 MG 40 MG Lisinopril Lisinopril No Lisinopril 20 MG 20 MG 20 MG traZODone traZODone No QD traZODone HCl 100 MG HCl 100 MG HCl 100 MG Triamcinolo Triamcinolo No BID Triamcinol ne ne one Acetonide Acetonide Acetonide 0.1 % 0.1 % 0.1 % Flonase 50 Flonase 50 No 2{spray QD Flonase 50 MCG/ACT MCG/ACT _in_eac MCG/ACT h_nostr il} Potassium Potassium No Potassium Chloride ER Chloride ER Chloride 10 MEQ 10 MEQ ER 10 MEQ Augmentin Augmentin No 1{table BID Augmentin 500-125 MG 500-125 MG t} 500-125 MG Lidocaine 5 Lidocaine 5 No 1{appli TID Lidocaine % % cation_ 5 % to_affe cted_ar ea_as_n eeded} valACYclovi valACYclovi No 1{table BID valACYclov r HCl 1 GM r HCl 1 GM t} ir HCl 1 GM Gabapentin Gabapentin No 2{capsu TID Gabapentin 300 MG 300 MG le} 300 MG Omeprazole Omeprazole No 1{capsu QD Omeprazole 40 MG 40 MG le} 40 MG HYDROcodone HYDROcodone No 1{table QID HYDROcodon -Acetaminop -Acetaminop t_as_ne e-Acetamin hen 10-325 hen 10-325 eded} ophen MG MG 10-325 MG Albuterol Albuterol No 3{ml_as Albuterol Sulfate Sulfate _needed Sulfate (2.5 (2.5 } (2.5 MG/3ML) MG/3ML) MG/3ML) 0.083% 0.083% 0.083% Levothyroxi Levothyroxi No Levothyrox ne Sodium ne Sodium ine Sodium 50 MCG 50 MCG 50 MCG Ventolin Ventolin No 2{puffs QID Ventolin HFA 108 (90 HFA 108 (90 _as_nee HFA 108 Base) Base) ded} (90 Base) MCG/ACT MCG/ACT MCG/ACT Ipratropium Ipratropium No Ipratropiu [place] 0.02 % 0.02 % 0.02 % Atorvastati Atorvastati No Atorvastat n Calcium n Calcium in Calcium 40 MG 40 MG 40 MG Lisinopril Lisinopril No Lisinopril 20 MG 20 MG 20 MG traZODone traZODone No QD traZODone HCl 100 MG HCl 100 MG HCl 100 MG Triamcinolo Triamcinolo No BID Triamcinol ne ne one Acetonide Acetonide Acetonide 0.1 % 0.1 % 0.1 % Flonase 50 Flonase 50 No 2{spray QD Flonase 50 MCG/ACT MCG/ACT _in_eac MCG/ACT h_nostr il} Potassium Potassium No Potassium Chloride ER Chloride ER Chloride 10 MEQ 10 MEQ ER 10 MEQ Augmentin Augmentin No 1{table BID Augmentin 500-125 MG 500-125 MG t} 500-125 MG Lidocaine 5 Lidocaine 5 No 1{appli TID Lidocaine % % cation_ 5 % to_affe cted_ar ea_as_n eeded} valACYclovi valACYclovi No 1{table BID valACYclov r HCl 1 GM r HCl 1 GM t} ir HCl 1 GM Gabapentin Gabapentin No 2{capsu TID Gabapentin 300 MG 300 MG le} 300 MG Omeprazole Omeprazole No 1{capsu QD Omeprazole 40 MG 40 MG le} 40 MG HYDROcodone HYDROcodone No 1{table QID HYDROcodon -Acetaminop -Acetaminop t_as_ne e-Acetamin hen 10-325 hen 10-325 eded} ophen MG MG 10-325 MG Albuterol Albuterol No 3{ml_as Albuterol Sulfate Sulfate _needed Sulfate (2.5 (2.5 } (2.5 MG/3ML) MG/3ML) MG/3ML) 0.083% 0.083% 0.083% Levothyroxi Levothyroxi No Levothyrox ne Sodium ne Sodium ine Sodium 50 MCG 50 MCG 50 MCG Ventolin Ventolin No 2{puffs QID Ventolin HFA 108 (90 HFA 108 (90 _as_nee HFA 108 Base) Base) ded} (90 Base) MCG/ACT MCG/ACT MCG/ACT Ipratropium Ipratropium No Ipratropiu [place] 0.02 % 0.02 % 0.02 % Atorvastati Atorvastati No Atorvastat n Calcium n Calcium in Calcium 40 MG 40 MG 40 MG Lisinopril Lisinopril No Lisinopril 20 MG 20 MG 20 MG Triamcinolo Triamcinolo No BID Triamcinol ne ne one Acetonide Acetonide Acetonide 0.1 % 0.1 % 0.1 % Flonase 50 Flonase 50 No 2{spray QD Flonase 50 MCG/ACT MCG/ACT _in_eac MCG/ACT h_nostr il} traZODone traZODone No QD traZODone HCl 100 MG HCl 100 MG HCl 100 MG Potassium Potassium No Potassium Chloride ER Chloride ER Chloride 10 MEQ 10 MEQ ER 10 MEQ Augmentin Augmentin No 1{table BID Augmentin 500-125 MG 500-125 MG t} 500-125 MG valACYclovi valACYclovi No 1{table BID valACYclov r HCl 1 GM r HCl 1 GM t} ir HCl 1 GM Levothyroxi Levothyroxi No Levothyrox ne Sodium ne Sodium ine Sodium 50 MCG 50 MCG 50 MCG Ventolin Ventolin No 2{puffs QID Ventolin HFA 108 (90 HFA 108 (90 _as_nee HFA 108 Base) Base) ded} (90 Base) MCG/ACT MCG/ACT MCG/ACT Albuterol Albuterol No 3{ml_as Albuterol Sulfate Sulfate _needed Sulfate (2.5 (2.5 } (2.5 MG/3ML) MG/3ML) MG/3ML) 0.083% 0.083% 0.083% HYDROcodone HYDROcodone No 1{table QID HYDROcodon -Acetaminop -Acetaminop t_as_ne e-Acetamin hen 10-325 hen 10-325 eded} ophen MG MG 10-325 MG Lidocaine 5 Lidocaine 5 No 1{appli TID Lidocaine % % cation_ 5 % to_affe cted_ar ea_as_n eeded} Gabapentin Gabapentin No 2{capsu TID Gabapentin 300 MG 300 MG le} 300 MG Omeprazole Omeprazole No 1{capsu QD Omeprazole 40 MG 40 MG le} 40 MG Ipratropium Ipratropium No Ipratropiu [place] 0.02 % 0.02 % 0.02 % Atorvastati Atorvastati No Atorvastat n Calcium n Calcium in Calcium 40 MG 40 MG 40 MG Lisinopril Lisinopril No Lisinopril 20 MG 20 MG 20 MG Lidocaine 5 Lidocaine 5 No 1{appli TID Lidocaine % % cation_ 5 % to_affe cted_ar ea_as_n eeded} Lisinopril Lisinopril No Lisinopril 20 MG 20 MG 20 MG Triamcinolo Triamcinolo No BID Triamcinol ne ne one Acetonide Acetonide Acetonide 0.1 % 0.1 % 0.1 % Albuterol Albuterol No 3{ml_as Albuterol Sulfate Sulfate _needed Sulfate (2.5 (2.5 } (2.5 MG/3ML) MG/3ML) MG/3ML) 0.083% 0.083% 0.083% Levothyroxi Levothyroxi No Levothyrox ne Sodium ne Sodium ine Sodium 50 MCG 50 MCG 50 MCG valACYclovi valACYclovi No 1{table BID valACYclov r HCl 1 GM r HCl 1 GM t} ir HCl 1 GM HYDROcodone HYDROcodone No 1{table QID HYDROcodon -Acetaminop -Acetaminop t_as_ne e-Acetamin hen 10-325 hen 10-325 eded} ophen MG MG 10-325 MG Atorvastati Atorvastati No Atorvastat n Calcium n Calcium in Calcium 40 MG 40 MG 40 MG Omeprazole Omeprazole No 1{capsu QD Omeprazole 40 MG 40 MG le} 40 MG Potassium Potassium No Potassium Chloride ER Chloride ER Chloride 10 MEQ 10 MEQ ER 10 MEQ Ventolin Ventolin No 2{puffs QID Ventolin HFA 108 (90 HFA 108 (90 _as_nee HFA 108 Base) Base) ded} (90 Base) MCG/ACT MCG/ACT MCG/ACT Flonase 50 Flonase 50 No 2{spray QD Flonase 50 MCG/ACT MCG/ACT _in_eac MCG/ACT h_nostr il} Gabapentin Gabapentin No 2{capsu TID Gabapentin 300 MG 300 MG le} 300 MG Ipratropium Ipratropium No Ipratropiu [place] 0.02 % 0.02 % 0.02 % traZODone traZODone No QD traZODone HCl 100 MG HCl 100 MG HCl 100 MG Augmentin Augmentin No 1{table BID Augmentin 500-125 MG 500-125 MG t} 500-125 MG Levothyroxi Levothyroxi No Levothyrox ne Sodium ne Sodium ine Sodium 50 MCG 50 MCG 50 MCG valACYclovi valACYclovi No 1{table BID valACYclov r HCl 1 GM r HCl 1 GM t} ir HCl 1 GM Triamcinolo Triamcinolo No BID Triamcinol ne ne one Acetonide Acetonide Acetonide 0.1 % 0.1 % 0.1 % Gabapentin Gabapentin No 2{capsu TID Gabapentin 300 MG 300 MG le} 300 MG Albuterol Albuterol No 3{ml_as Albuterol Sulfate Sulfate _needed Sulfate (2.5 (2.5 } (2.5 MG/3ML) MG/3ML) MG/3ML) 0.083% 0.083% 0.083% Atorvastati Atorvastati No Atorvastat n Calcium n Calcium in Calcium 40 MG 40 MG 40 MG Ipratropium Ipratropium No Ipratropiu [place] 0.02 % 0.02 % 0.02 % Ventolin Ventolin No 2{puffs QID Ventolin HFA 108 (90 HFA 108 (90 _as_nee HFA 108 Base) Base) ded} (90 Base) MCG/ACT MCG/ACT MCG/ACT Lisinopril Lisinopril No Lisinopril 20 MG 20 MG 20 MG Flonase 50 Flonase 50 No 2{spray QD Flonase 50 MCG/ACT MCG/ACT _in_eac MCG/ACT h_nostr il} HYDROcodone HYDROcodone No 1{table QID HYDROcodon -Acetaminop -Acetaminop t_as_ne e-Acetamin hen 10-325 hen 10-325 eded} ophen MG MG 10-325 MG Lidocaine 5 Lidocaine 5 No 1{appli TID Lidocaine % % cation_ 5 % to_affe cted_ar ea_as_n eeded} Potassium Potassium No Potassium Chloride ER Chloride ER Chloride 10 MEQ 10 MEQ ER 10 MEQ Augmentin Augmentin No 1{table BID Augmentin 500-125 MG 500-125 MG t} 500-125 MG Omeprazole Omeprazole No 1{capsu QD Omeprazole 40 MG 40 MG le} 40 MG traZODone traZODone No QD traZODone HCl 100 MG HCl 100 MG HCl 100 MG Levothyroxi Levothyroxi No Levothyrox ne Sodium ne Sodium ine Sodium 50 MCG 50 MCG 50 MCG valACYclovi valACYclovi No 1{table BID valACYclov r HCl 1 GM r HCl 1 GM t} ir HCl 1 GM Triamcinolo Triamcinolo No BID Triamcinol ne ne one Acetonide Acetonide Acetonide 0.1 % 0.1 % 0.1 % Gabapentin Gabapentin No 2{capsu TID Gabapentin 300 MG 300 MG le} 300 MG Albuterol Albuterol No 3{ml_as Albuterol Sulfate Sulfate _needed Sulfate (2.5 (2.5 } (2.5 MG/3ML) MG/3ML) MG/3ML) 0.083% 0.083% 0.083% Atorvastati Atorvastati No Atorvastat n Calcium n Calcium in Calcium 40 MG 40 MG 40 MG Ipratropium Ipratropium No Ipratropiu [place] 0.02 % 0.02 % 0.02 % Ventolin Ventolin No 2{puffs QID Ventolin HFA 108 (90 HFA 108 (90 _as_nee HFA 108 Base) Base) ded} (90 Base) MCG/ACT MCG/ACT MCG/ACT Lisinopril Lisinopril No Lisinopril 20 MG 20 MG 20 MG Flonase 50 Flonase 50 No 2{spray QD Flonase 50 MCG/ACT MCG/ACT _in_eac MCG/ACT h_nostr il} HYDROcodone HYDROcodone No 1{table QID HYDROcodon -Acetaminop -Acetaminop t_as_ne e-Acetamin hen 10-325 hen 10-325 eded} ophen MG MG 10-325 MG Lidocaine 5 Lidocaine 5 No 1{appli TID Lidocaine % % cation_ 5 % to_affe cted_ar ea_as_n eeded} Potassium Potassium No Potassium Chloride ER Chloride ER Chloride 10 MEQ 10 MEQ ER 10 MEQ Augmentin Augmentin No 1{table BID Augmentin 500-125 MG 500-125 MG t} 500-125 MG Omeprazole Omeprazole No 1{capsu QD Omeprazole 40 MG 40 MG le} 40 MG traZODone traZODone No QD traZODone HCl 100 MG HCl 100 MG HCl 100 MG Atorvastati Atorvastati No Atorvastat n Calcium n Calcium in Calcium 40 MG 40 MG 40 MG Albuterol Albuterol No 3{ml_as Albuterol Sulfate Sulfate _needed Sulfate (2.5 (2.5 } (2.5 MG/3ML) MG/3ML) MG/3ML) 0.083% 0.083% 0.083% Levothyroxi Levothyroxi No Levothyrox ne Sodium ne Sodium ine Sodium 50 MCG 50 MCG 50 MCG Ipratropium Ipratropium No Ipratropiu [place] 0.02 % 0.02 % 0.02 % Ventolin Ventolin No 2{puffs QID Ventolin HFA 108 (90 HFA 108 (90 _as_nee HFA 108 Base) Base) ded} (90 Base) MCG/ACT MCG/ACT MCG/ACT Gabapentin Gabapentin No 2{capsu TID Gabapentin 300 MG 300 MG le} 300 MG Lisinopril Lisinopril No Lisinopril 20 MG 20 MG 20 MG Potassium Potassium No Potassium Chloride ER Chloride ER Chloride 10 MEQ 10 MEQ ER 10 MEQ Lidocaine 5 Lidocaine 5 No 1{appli TID Lidocaine % % cation_ 5 % to_affe cted_ar ea_as_n eeded} valACYclovi valACYclovi No 1{table BID valACYclov r HCl 1 GM r HCl 1 GM t} ir HCl 1 GM HYDROcodone HYDROcodone No 1{table QID HYDROcodon -Acetaminop -Acetaminop t_as_ne e-Acetamin hen 10-325 hen 10-325 eded} ophen MG MG 10-325 MG Triamcinolo Triamcinolo No BID Triamcinol ne ne one Acetonide Acetonide Acetonide 0.1 % 0.1 % 0.1 % Flonase 50 Flonase 50 No 2{spray QD Flonase 50 MCG/ACT MCG/ACT _in_eac MCG/ACT h_nostr il} Augmentin Augmentin No 1{table BID Augmentin 500-125 MG 500-125 MG t} 500-125 MG Omeprazole Omeprazole No 1{capsu QD Omeprazole 40 MG 40 MG le} 40 MG traZODone traZODone No QD traZODone HCl 100 MG HCl 100 MG HCl 100 MG Levothyroxi Levothyroxi No Levothyrox ne Sodium ne Sodium ine Sodium 50 MCG 50 MCG 50 MCG traZODone traZODone No QD traZODone HCl 100 MG HCl 100 MG HCl 100 MG valACYclovi valACYclovi No 1{table BID valACYclov r HCl 1 GM r HCl 1 GM t} ir HCl 1 GM HYDROcodone HYDROcodone No 1{table QID HYDROcodon -Acetaminop -Acetaminop t_as_ne e-Acetamin hen 10-325 hen 10-325 eded} ophen MG MG 10-325 MG Lidocaine 5 Lidocaine 5 No 1{appli TID Lidocaine % % cation_ 5 % to_affe cted_ar ea_as_n eeded} Atorvastati Atorvastati No Atorvastat n Calcium n Calcium in Calcium 40 MG 40 MG 40 MG Flonase 50 Flonase 50 No 2{spray QD Flonase 50 MCG/ACT MCG/ACT _in_eac MCG/ACT h_nostr il} Lisinopril Lisinopril No Lisinopril 20 MG 20 MG 20 MG Ventolin Ventolin No 2{puffs QID Ventolin HFA 108 (90 HFA 108 (90 _as_nee HFA 108 Base) Base) ded} (90 Base) MCG/ACT MCG/ACT MCG/ACT Potassium Potassium No Potassium Chloride ER Chloride ER Chloride 10 MEQ 10 MEQ ER 10 MEQ Omeprazole Omeprazole No 1{capsu QD Omeprazole 40 MG 40 MG le} 40 MG Augmentin Augmentin No 1{table BID Augmentin 500-125 MG 500-125 MG t} 500-125 MG Gabapentin Gabapentin No 2{capsu TID Gabapentin 300 MG 300 MG le} 300 MG Albuterol Albuterol No 3{ml_as Albuterol Sulfate Sulfate _needed Sulfate (2.5 (2.5 } (2.5 MG/3ML) MG/3ML) MG/3ML) 0.083% 0.083% 0.083% Triamcinolo Triamcinolo No BID Triamcinol ne ne one Acetonide Acetonide Acetonide 0.1 % 0.1 % 0.1 % Ipratropium Ipratropium No Ipratropiu [place] 0.02 % 0.02 % 0.02 % Levothyroxi Levothyroxi No Levothyrox ne Sodium ne Sodium ine Sodium 50 MCG 50 MCG 50 MCG traZODone traZODone No QD traZODone HCl 100 MG HCl 100 MG HCl 100 MG valACYclovi valACYclovi No 1{table BID valACYclov r HCl 1 GM r HCl 1 GM t} ir HCl 1 GM HYDROcodone HYDROcodone No 1{table QID HYDROcodon -Acetaminop -Acetaminop t_as_ne e-Acetamin hen 10-325 hen 10-325 eded} ophen MG MG 10-325 MG Lidocaine 5 Lidocaine 5 No 1{appli TID Lidocaine % % cation_ 5 % to_affe cted_ar ea_as_n eeded} Atorvastati Atorvastati No Atorvastat n Calcium n Calcium in Calcium 40 MG 40 MG 40 MG Flonase 50 Flonase 50 No 2{spray QD Flonase 50 MCG/ACT MCG/ACT _in_eac MCG/ACT h_nostr il} Lisinopril Lisinopril No Lisinopril 20 MG 20 MG 20 MG Ventolin Ventolin No 2{puffs QID Ventolin HFA 108 (90 HFA 108 (90 _as_nee HFA 108 Base) Base) ded} (90 Base) MCG/ACT MCG/ACT MCG/ACT Potassium Potassium No Potassium Chloride ER Chloride ER Chloride 10 MEQ 10 MEQ ER 10 MEQ Omeprazole Omeprazole No 1{capsu QD Omeprazole 40 MG 40 MG le} 40 MG Augmentin Augmentin No 1{table BID Augmentin 500-125 MG 500-125 MG t} 500-125 MG Gabapentin Gabapentin No 2{capsu TID Gabapentin 300 MG 300 MG le} 300 MG Albuterol Albuterol No 3{ml_as Albuterol Sulfate Sulfate _needed Sulfate (2.5 (2.5 } (2.5 MG/3ML) MG/3ML) MG/3ML) 0.083% 0.083% 0.083% Triamcinolo Triamcinolo No BID Triamcinol ne ne one Acetonide Acetonide Acetonide 0.1 % 0.1 % 0.1 % Ipratropium Ipratropium No Ipratropiu [place] 0.02 % 0.02 % 0.02 % HYDROcodone HYDROcodone No 1{table QID HYDROcodon -Acetaminop -Acetaminop t_as_ne e-Acetamin hen 10-325 hen 10-325 eded} ophen MG MG 10-325 MG Lidocaine 5 Lidocaine 5 No 1{appli TID Lidocaine % % cation_ 5 % to_affe cted_ar ea_as_n eeded} Atorvastati Atorvastati No Atorvastat n Calcium n Calcium in Calcium 40 MG 40 MG 40 MG Flonase 50 Flonase 50 No 2{spray QD Flonase 50 MCG/ACT MCG/ACT _in_eac MCG/ACT h_nostr il} Potassium Potassium No Potassium Chloride ER Chloride ER Chloride 10 MEQ 10 MEQ ER 10 MEQ Lisinopril Lisinopril No Lisinopril 20 MG 20 MG 20 MG Omeprazole Omeprazole No 1{capsu QD Omeprazole 40 MG 40 MG le} 40 MG Augmentin Augmentin No 1{table BID Augmentin 500-125 MG 500-125 MG t} 500-125 MG valACYclovi valACYclovi No 1{table BID valACYclov r HCl 1 GM r HCl 1 GM t} ir HCl 1 GM Levothyroxi Levothyroxi No Levothyrox ne Sodium ne Sodium ine Sodium 50 MCG 50 MCG 50 MCG traZODone traZODone No QD traZODone HCl 100 MG HCl 100 MG HCl 100 MG Ventolin Ventolin No 2{puffs QID Ventolin HFA 108 (90 HFA 108 (90 _as_nee HFA 108 Base) Base) ded} (90 Base) MCG/ACT MCG/ACT MCG/ACT Albuterol Albuterol No 3{ml_as Albuterol Sulfate Sulfate _needed Sulfate (2.5 (2.5 } (2.5 MG/3ML) MG/3ML) MG/3ML) 0.083% 0.083% 0.083% Gabapentin Gabapentin No 2{capsu TID Gabapentin 300 MG 300 MG le} 300 MG Triamcinolo Triamcinolo No BID Triamcinol ne ne one Acetonide Acetonide Acetonide 0.1 % 0.1 % 0.1 % Ipratropium Ipratropium No Ipratropiu [place] 0.02 % 0.02 % 0.02 % Flonase 50 Flonase 50 No 2{spray QD Flonase 50 MCG/ACT MCG/ACT _in_eac MCG/ACT h_nostr il} HYDROcodone HYDROcodone No 1{table QID HYDROcodon -Acetaminop -Acetaminop t_as_ne e-Acetamin hen 10-325 hen 10-325 eded} ophen MG MG 10-325 MG Potassium Potassium No Potassium Chloride ER Chloride ER Chloride 10 MEQ 10 MEQ ER 10 MEQ Lisinopril Lisinopril No Lisinopril 20 MG 20 MG 20 MG Atorvastati Atorvastati No Atorvastat n Calcium n Calcium in Calcium 40 MG 40 MG 40 MG Omeprazole Omeprazole No 1{capsu QD Omeprazole 40 MG 40 MG le} 40 MG Augmentin Augmentin No 1{table BID Augmentin 500-125 MG 500-125 MG t} 500-125 MG Levothyroxi Levothyroxi No Levothyrox ne Sodium ne Sodium ine Sodium 50 MCG 50 MCG 50 MCG valACYclovi valACYclovi No 1{table BID valACYclov r HCl 1 GM r HCl 1 GM t} ir HCl 1 GM Lidocaine 5 Lidocaine 5 No 1{appli TID Lidocaine % % cation_ 5 % to_affe cted_ar ea_as_n eeded} traZODone traZODone No QD traZODone HCl 100 MG HCl 100 MG HCl 100 MG Ventolin Ventolin No 2{puffs QID Ventolin HFA 108 (90 HFA 108 (90 _as_nee HFA 108 Base) Base) ded} (90 Base) MCG/ACT MCG/ACT MCG/ACT Albuterol Albuterol No 3{ml_as Albuterol Sulfate Sulfate _needed Sulfate (2.5 (2.5 } (2.5 MG/3ML) MG/3ML) MG/3ML) 0.083% 0.083% 0.083% Gabapentin Gabapentin No 2{capsu TID Gabapentin 300 MG 300 MG le} 300 MG Triamcinolo Triamcinolo No BID Triamcinol ne ne one Acetonide Acetonide Acetonide 0.1 % 0.1 % 0.1 % Ipratropium Ipratropium No Ipratropiu [place] 0.02 % 0.02 % 0.02 % guaiFENesin guaiFENesin No 5{ml} QID guaiFENesi -Codeine -Codeine n-Codeine 100-10 100-10 100-10 MG/5ML MG/5ML MG/5ML predniSONE predniSONE No QD predniSONE 10 MG 10 MG 10 MG valACYclovi valACYclovi No 1{table BID valACYclov r HCl 1 GM r HCl 1 GM t} ir HCl 1 GM Augmentin Augmentin No 1{table BID Augmentin 500-125 MG 500-125 MG t} 500-125 MG Cetirizine Cetirizine No 1{table Cetirizine HCl 10 MG HCl 10 MG t} HCl 10 MG Ventolin Ventolin No 2{puffs QID Ventolin HFA 108 (90 HFA 108 (90 _as_nee HFA 108 Base) Base) ded} (90 Base) MCG/ACT MCG/ACT MCG/ACT Flonase 50 Flonase 50 No 2{spray QD Flonase 50 MCG/ACT MCG/ACT _in_eac MCG/ACT h_nostr il} traZODone traZODone No QD traZODone HCl 100 MG HCl 100 MG HCl 100 MG Ipratropium Ipratropium No 3{ml_as QID Ipratropiu -Albuterol -Albuterol _needed m-Albutero 0.5-2.5 (3) 0.5-2.5 (3) } l 0.5-2.5 MG/3ML MG/3ML (3) MG/3ML Augmentin Augmentin No 1{table BID Augmentin 500-125 MG 500-125 MG t} 500-125 MG Ipratropium Ipratropium No Ipratropiu [place] 0.02 % 0.02 % 0.02 % Albuterol Albuterol No 3{ml_as Albuterol Sulfate Sulfate _needed Sulfate (2.5 (2.5 } (2.5 MG/3ML) MG/3ML) MG/3ML) 0.083% 0.083% 0.083% Potassium Potassium No Potassium Chloride ER Chloride ER Chloride 10 MEQ 10 MEQ ER 10 MEQ Omeprazole Omeprazole No 1{capsu QD Omeprazole 40 MG 40 MG le} 40 MG Famotidine Famotidine No 1{table BID Famotidine 20 MG 20 MG t} 20 MG Triamcinolo Triamcinolo No BID Triamcinol ne ne one Acetonide Acetonide Acetonide 0.1 % 0.1 % 0.1 % Cheratussin Cheratussin No 5{ml} Cheratussi AC 100-10 AC 100-10 n AC MG/5ML MG/5ML 100-10 MG/5ML Gabapentin Gabapentin No 2{capsu TID Gabapentin 300 MG 300 MG le} 300 MG Lidocaine 5 Lidocaine 5 No 1{appli TID Lidocaine % % cation_ 5 % to_affe cted_ar ea_as_n eeded} Lisinopril Lisinopril No Lisinopril 20 MG 20 MG 20 MG HYDROcodone HYDROcodone No 1{table QID HYDROcodon -Acetaminop -Acetaminop t_as_ne e-Acetamin hen 10-325 hen 10-325 eded} ophen MG MG 10-325 MG Atorvastati Atorvastati No Atorvastat n Calcium n Calcium in Calcium 40 MG 40 MG 40 MG Levothyroxi Levothyroxi No Levothyrox ne Sodium ne Sodium ine Sodium 50 MCG 50 MCG 50 MCG Omeprazole Omeprazole No 1{capsu QD Omeprazole 40 MG 40 MG le} 40 MG Triamcinolo Triamcinolo No BID Triamcinol ne ne one Acetonide Acetonide Acetonide 0.1 % 0.1 % 0.1 % valACYclovi valACYclovi No 1{table BID valACYclov r HCl 1 GM r HCl 1 GM t} ir HCl 1 GM Cheratussin Cheratussin No 5{ml} Cheratussi AC 100-10 AC 100-10 n AC MG/5ML MG/5ML 100-10 MG/5ML Lisinopril Lisinopril No Lisinopril 20 MG 20 MG 20 MG Lidocaine 5 Lidocaine 5 No 1{appli TID Lidocaine % % cation_ 5 % to_affe cted_ar ea_as_n eeded} Flonase 50 Flonase 50 No 2{spray QD Flonase 50 MCG/ACT MCG/ACT _in_eac MCG/ACT h_nostr il} Albuterol Albuterol No 3{ml_as Albuterol Sulfate Sulfate _needed Sulfate (2.5 (2.5 } (2.5 MG/3ML) MG/3ML) MG/3ML) 0.083% 0.083% 0.083% Atorvastati Atorvastati No Atorvastat n Calcium n Calcium in Calcium 40 MG 40 MG 40 MG Levothyroxi Levothyroxi No Levothyrox ne Sodium ne Sodium ine Sodium 50 MCG 50 MCG 50 MCG Gabapentin Gabapentin No 2{capsu TID Gabapentin 300 MG 300 MG le} 300 MG Augmentin Augmentin No 1{table BID Augmentin 500-125 MG 500-125 MG t} 500-125 MG Potassium Potassium No Potassium Chloride ER Chloride ER Chloride 10 MEQ 10 MEQ ER 10 MEQ predniSONE predniSONE No QD predniSONE 10 MG 10 MG 10 MG Cetirizine Cetirizine No 1{table Cetirizine HCl 10 MG HCl 10 MG t} HCl 10 MG HYDROcodone HYDROcodone No 1{table QID HYDROcodon -Acetaminop -Acetaminop t_as_ne e-Acetamin hen 10-325 hen 10-325 eded} ophen MG MG 10-325 MG traZODone traZODone No QD traZODone HCl 100 MG HCl 100 MG HCl 100 MG Famotidine Famotidine No 1{table BID Famotidine 20 MG 20 MG t} 20 MG Ipratropium Ipratropium No Ipratropiu [place] 0.02 % 0.02 % 0.02 % guaiFENesin guaiFENesin No 5{ml} QID guaiFENesi -Codeine -Codeine n-Codeine 100-10 100-10 100-10 MG/5ML MG/5ML MG/5ML Ipratropium Ipratropium No 3{ml_as QID Ipratropiu -Albuterol -Albuterol _needed m-Albutero 0.5-2.5 (3) 0.5-2.5 (3) } l 0.5-2.5 MG/3ML MG/3ML (3) MG/3ML Augmentin Augmentin No 1{table BID Augmentin 500-125 MG 500-125 MG t} 500-125 MG Omeprazole Omeprazole No 1{capsu QD Omeprazole 40 MG 40 MG le} 40 MG Triamcinolo Triamcinolo No BID Triamcinol ne ne one Acetonide Acetonide Acetonide 0.1 % 0.1 % 0.1 % valACYclovi valACYclovi No 1{table BID valACYclov r HCl 1 GM r HCl 1 GM t} ir HCl 1 GM Cheratussin Cheratussin No 5{ml} Cheratussi AC 100-10 AC 100-10 n AC MG/5ML MG/5ML 100-10 MG/5ML Lisinopril Lisinopril No Lisinopril 20 MG 20 MG 20 MG Lidocaine 5 Lidocaine 5 No 1{appli TID Lidocaine % % cation_ 5 % to_affe cted_ar ea_as_n eeded} Flonase 50 Flonase 50 No 2{spray QD Flonase 50 MCG/ACT MCG/ACT _in_eac MCG/ACT h_nostr il} Albuterol Albuterol No 3{ml_as Albuterol Sulfate Sulfate _needed Sulfate (2.5 (2.5 } (2.5 MG/3ML) MG/3ML) MG/3ML) 0.083% 0.083% 0.083% Atorvastati Atorvastati No Atorvastat n Calcium n Calcium in Calcium 40 MG 40 MG 40 MG Levothyroxi Levothyroxi No Levothyrox ne Sodium ne Sodium ine Sodium 50 MCG 50 MCG 50 MCG Gabapentin Gabapentin No 2{capsu TID Gabapentin 300 MG 300 MG le} 300 MG Augmentin Augmentin No 1{table BID Augmentin 500-125 MG 500-125 MG t} 500-125 MG Potassium Potassium No Potassium Chloride ER Chloride ER Chloride 10 MEQ 10 MEQ ER 10 MEQ predniSONE predniSONE No QD predniSONE 10 MG 10 MG 10 MG Cetirizine Cetirizine No 1{table Cetirizine HCl 10 MG HCl 10 MG t} HCl 10 MG HYDROcodone HYDROcodone No 1{table QID HYDROcodon -Acetaminop -Acetaminop t_as_ne e-Acetamin hen 10-325 hen 10-325 eded} ophen MG MG 10-325 MG traZODone traZODone No QD traZODone HCl 100 MG HCl 100 MG HCl 100 MG Famotidine Famotidine No 1{table BID Famotidine 20 MG 20 MG t} 20 MG Ipratropium Ipratropium No Ipratropiu [place] 0.02 % 0.02 % 0.02 % guaiFENesin guaiFENesin No 5{ml} QID guaiFENesi -Codeine -Codeine n-Codeine 100-10 100-10 100-10 MG/5ML MG/5ML MG/5ML Ipratropium Ipratropium No 3{ml_as QID Ipratropiu -Albuterol -Albuterol _needed m-Albutero 0.5-2.5 (3) 0.5-2.5 (3) } l 0.5-2.5 MG/3ML MG/3ML (3) MG/3ML Augmentin Augmentin No 1{table BID Augmentin 500-125 MG 500-125 MG t} 500-125 MG Cheratussin Cheratussin No 5{ml} Cheratussi AC 100-10 AC 100-10 n AC MG/5ML MG/5ML 100-10 MG/5ML Triamcinolo Triamcinolo No BID Triamcinol ne ne one Acetonide Acetonide Acetonide 0.1 % 0.1 % 0.1 % valACYclovi valACYclovi No 1{table BID valACYclov r HCl 1 GM r HCl 1 GM t} ir HCl 1 GM Lidocaine 5 Lidocaine 5 No 1{appli TID Lidocaine % % cation_ 5 % to_affe cted_ar ea_as_n eeded} Atorvastati Atorvastati No Atorvastat n Calcium n Calcium in Calcium 40 MG 40 MG 40 MG Omeprazole Omeprazole No 1{capsu QD Omeprazole 40 MG 40 MG le} 40 MG Levothyroxi Levothyroxi No Levothyrox ne Sodium ne Sodium ine Sodium 50 MCG 50 MCG 50 MCG Albuterol Albuterol No 3{ml_as Albuterol Sulfate Sulfate _needed Sulfate (2.5 (2.5 } (2.5 MG/3ML) MG/3ML) MG/3ML) 0.083% 0.083% 0.083% Flonase 50 Flonase 50 No 2{spray QD Flonase 50 MCG/ACT MCG/ACT _in_eac MCG/ACT h_nostr il} HYDROcodone HYDROcodone No 1{table QID HYDROcodon -Acetaminop -Acetaminop t_as_ne e-Acetamin hen 10-325 hen 10-325 eded} ophen MG MG 10-325 MG Gabapentin Gabapentin No 2{capsu TID Gabapentin 300 MG 300 MG le} 300 MG Augmentin Augmentin No 1{table BID Augmentin 500-125 MG 500-125 MG t} 500-125 MG Potassium Potassium No Potassium Chloride ER Chloride ER Chloride 10 MEQ 10 MEQ ER 10 MEQ predniSONE predniSONE No QD predniSONE 10 MG 10 MG 10 MG Cetirizine Cetirizine No 1{table Cetirizine HCl 10 MG HCl 10 MG t} HCl 10 MG Lisinopril Lisinopril No Lisinopril 20 MG 20 MG 20 MG traZODone traZODone No QD traZODone HCl 100 MG HCl 100 MG HCl 100 MG Famotidine Famotidine No 1{table BID Famotidine 20 MG 20 MG t} 20 MG Ipratropium Ipratropium No Ipratropiu [place] 0.02 % 0.02 % 0.02 % guaiFENesin guaiFENesin No 5{ml} QID guaiFENesi -Codeine -Codeine n-Codeine 100-10 100-10 100-10 MG/5ML MG/5ML MG/5ML Ipratropium Ipratropium No 3{ml_as QID Ipratropiu -Albuterol -Albuterol _needed m-Albutero 0.5-2.5 (3) 0.5-2.5 (3) } l 0.5-2.5 MG/3ML MG/3ML (3) MG/3ML Augmentin Augmentin No 1{table BID Augmentin 500-125 MG 500-125 MG t} 500-125 MG Cheratussin Cheratussin No 5{ml} Cheratussi AC 100-10 AC 100-10 n AC MG/5ML MG/5ML 100-10 MG/5ML Triamcinolo Triamcinolo No BID Triamcinol ne ne one Acetonide Acetonide Acetonide 0.1 % 0.1 % 0.1 % Atorvastati Atorvastati No 1{table QD Atorvastat n Calcium n Calcium t_at_be in Calcium 40 MG 40 MG dtime} 40 MG Lidocaine 5 Lidocaine 5 No 1{appli TID Lidocaine % % cation_ 5 % to_affe cted_ar ea_as_n eeded} Flonase 50 Flonase 50 No 2{spray QD Flonase 50 MCG/ACT MCG/ACT _in_eac MCG/ACT h_nostr il} Omeprazole Omeprazole No 1{capsu QD Omeprazole 40 MG 40 MG le} 40 MG HYDROcodone HYDROcodone No 1{table QID HYDROcodon -Acetaminop -Acetaminop t_as_ne e-Acetamin hen 10-325 hen 10-325 eded} ophen MG MG 10-325 MG Albuterol Albuterol No 3{ml_as Albuterol Sulfate Sulfate _needed Sulfate (2.5 (2.5 } (2.5 MG/3ML) MG/3ML) MG/3ML) 0.083% 0.083% 0.083% Levothyroxi Levothyroxi No Levothyrox ne Sodium ne Sodium ine Sodium 50 MCG 50 MCG 50 MCG Lisinopril Lisinopril No Lisinopril 20 MG 20 MG 20 MG Gabapentin Gabapentin No 2{capsu TID Gabapentin 300 MG 300 MG le} 300 MG Augmentin Augmentin No 1{table BID Augmentin 500-125 MG 500-125 MG t} 500-125 MG Potassium Potassium No Potassium Chloride ER Chloride ER Chloride 10 MEQ 10 MEQ ER 10 MEQ predniSONE predniSONE No QD predniSONE 10 MG 10 MG 10 MG Cetirizine Cetirizine No 1{table Cetirizine HCl 10 MG HCl 10 MG t} HCl 10 MG valACYclovi valACYclovi No 1{table BID valACYclov r HCl 1 GM r HCl 1 GM t} ir HCl 1 GM traZODone traZODone No QD traZODone HCl 100 MG HCl 100 MG HCl 100 MG Famotidine Famotidine No 1{table BID Famotidine 20 MG 20 MG t} 20 MG Ipratropium Ipratropium No Ipratropiu [place] 0.02 % 0.02 % 0.02 % guaiFENesin guaiFENesin No 5{ml} QID guaiFENesi -Codeine -Codeine n-Codeine 100-10 100-10 100-10 MG/5ML MG/5ML MG/5ML Ipratropium Ipratropium No 3{ml_as QID Ipratropiu -Albuterol -Albuterol _needed m-Albutero 0.5-2.5 (3) 0.5-2.5 (3) } l 0.5-2.5 MG/3ML MG/3ML (3) MG/3ML Augmentin Augmentin No 1{table BID Augmentin 500-125 MG 500-125 MG t} 500-125 MG Cheratussin Cheratussin No 5{ml} Cheratussi AC 100-10 AC 100-10 n AC MG/5ML MG/5ML 100-10 MG/5ML Triamcinolo Triamcinolo No BID Triamcinol ne ne one Acetonide Acetonide Acetonide 0.1 % 0.1 % 0.1 % Atorvastati Atorvastati No 1{table QD Atorvastat n Calcium n Calcium t_at_be in Calcium 40 MG 40 MG dtime} 40 MG Lidocaine 5 Lidocaine 5 No 1{appli TID Lidocaine % % cation_ 5 % to_affe cted_ar ea_as_n eeded} Flonase 50 Flonase 50 No 2{spray QD Flonase 50 MCG/ACT MCG/ACT _in_eac MCG/ACT h_nostr il} Omeprazole Omeprazole No 1{capsu QD Omeprazole 40 MG 40 MG le} 40 MG HYDROcodone HYDROcodone No 1{table QID HYDROcodon -Acetaminop -Acetaminop t_as_ne e-Acetamin hen 10-325 hen 10-325 eded} ophen MG MG 10-325 MG Albuterol Albuterol No 3{ml_as Albuterol Sulfate Sulfate _needed Sulfate (2.5 (2.5 } (2.5 MG/3ML) MG/3ML) MG/3ML) 0.083% 0.083% 0.083% Levothyroxi Levothyroxi No Levothyrox ne Sodium ne Sodium ine Sodium 50 MCG 50 MCG 50 MCG Lisinopril Lisinopril No Lisinopril 20 MG 20 MG 20 MG Gabapentin Gabapentin No 2{capsu TID Gabapentin 300 MG 300 MG le} 300 MG Vital Signs Vital Name Observation Time Observation Value Comments Source height 2021-09-12 16:20:00 62.00 [in_i] [facility] weight 2021-09-12 16:20:00 252 [lb_av] [facility] bmi 2021-09-12 16:20:00 46.09 kg/m2 [facility] height 2021-06-20 09:40:00 62.00 [in_i] [facility] weight 2021-06-20 09:40:00 252 [lb_av] [facility] temperature 2021-06-20 09:40:00 97.2 [degF] [facility] bmi 2021-06-20 09:40:00 46.09 kg/m2 [facility] oximetry 2021-06-20 09:40:00 94 % [facility] respiratory rate 2021-06-20 09:40:00 18 /min Comm on [facility] blood pressure 2021-06-20 09:40:00 116 mm[Hg] [facility] - systolic [facility] blood pressure 2021-06-20 09:40:00 62 mm[Hg] [facility] - diastolic [facility] height 2021-06-01 11:40:00 62.00 [in_i] [facility] weight 2021-06-01 11:40:00 252 [lb_av] [facility] temperature 2021-06-01 11:40:00 99.2 [degF] [facility] bmi 2021-06-01 11:40:00 46.09 kg/m2 [facility] oximetry 2021-06-01 11:40:00 92 % [facility] Body height 2020-10-14 15:20:00 157.5 cm [facility] Body weight 2020-10-14 15:20:00 106.595 kg [facility] BMI 2020-10-14 15:20:00 42.98 kg/m2 [facility] Systolic (mm Hg) 2021-11-17 20:59:00 [facility] Diastolic (mm Hg) 2021-11-17 20:59:00 [facility] Heart Rate 2021-11-17 20:59:00 [facility] Respitory Rate 2021-11-17 20:59:00 [facility] Systolic (mm Hg) 2021-09-15 14:41:00 Mohinder rial [facility] Diastolic (mm Hg) 2021-09-15 14:41:00 [facility] Heart Rate 2021-09-15 14:41:00 [facility] Respitory Rate 2021-09-15 14:41:00 [facility] Systolic (mm Hg) 2021-07-18 21:21:00 Mohinder rial [facility] Diastolic (mm Hg) 2021-07-18 21:21:00 [facility] Heart Rate 2021-07-18 21:21:00 [facility] Respitory Rate 2021-07-18 21:21:00 [facility] Systolic (mm Hg) 2021-04-27 17:01:00 Mohinder rial [facility] Diastolic (mm Hg) 2021-04-27 17:01:00 [facility] Heart Rate 2021-04-27 17:01:00 [facility] Respitory Rate 2021-04-27 17:01:00 Katie [facility] Procedures Procedure Date / Time Performed Performing Clinician Sourc e XR KNEE 3 VW BILATERAL 2020-10-14 15:09:03 Shonda Butterfield [facility] ASSIGNMENT OF BENEFITS 2020-10-14 14:47:40 Doctor Unassigned, No [facility] procedure<sup>1</sup> Encounters Start End Encounter Admission Attending Care Care Encounter Source Date/Time Date/Time Type Type Clinicians Facility Department ID 2021-11-27 Outpatient Barrera, Na STLMLC ST[facility] [id number] 2 Common 15:22:00 [facility] 2021-10-10 Outpatient Barrera, Na STLMLC STLMLC [id number] 2 Common 10:59:00 [facility] 2021-08-15 Outpatient Barrera, Na STLMLC STLMLC [id number] 2 Common 10:25:00 [facility] 2021-07-05 Outpatient Barrera, Na STLMLC STLMLC [id number] 2 Common 14:12:01 [facility] 2021-06-27 Outpatient Barrera, Na STLMLC STLMLC [id number] 2 Common 09:59:00 [facility] 2021-06-07 Outpatient Barrera, Na STLMLC STLMLC [id number] 2 Common 15:30:01 [facility] 2021-05-04 Outpatient Barrera, Na STLMLC STLMLC [id number] 2 Common 09:33:01 [facility] 2021-03-31 Outpatient Barrera, Na STLMLC STLMLC [id number] 2 Common 12:05:00 [facility] 2021-03-29 Outpatient Barrera, Na STLMLC STLMLC [id number] 2 Common 14:32:33 [facility] 2021-03-29 Outpatient Barrera, Na STLMLC STLMLC [id number] 2 Common 13:38:02 [id number] [facility] 2021-03-29 Outpatient Barrera, Na STLMLC STLMLC [id number] 2 Common 13:32:46 [id number] [facility] 2021-03-29 Outpatient Barrera, Na STLMLC STLMLC [id number] 2 Common 13:30:24 [id number] [facility] 2021-03-29 Outpatient Barrera, Na STLMLC STLMLC [id number] 2 Common 13:28:10 [id number] [facility] 2021-03-29 Outpatient Barrera, Na STLMLC STLMLC [id number] 2 Common 13:18:02 [id number] [facility] 2021-03-29 Outpatient Barrera, Na STLMLC STLMLC [id number] 2 Common 12:24:39 [id number] [facility] 2021-03-29 Outpatient Barrera, Na STLMLC STLMLC [id number] 2 Common 12:21:13 [id number] [facility] 2021-03-29 Outpatient Barrera, Na STLMLC STLMLC [id number] 2 Common 12:08:19 [id number] [facility] 2021-03-29 Outpatient Barrera, Na STLMLC STLMLC [id number] 2 Common 12:03:10 [id number] [facility] 2021-03-29 Outpatient Barrera, Na STLMLC STLMLC [id number] 2 Common 11:56:37 [id number] [facility] 2021-03-29 Outpatient Barrera, Na STLMLC STLMLC [id number] 2 Common 11:56:07 [id number] [facility] 2021-03-29 Outpatient Barrera, Na STLMLC STLMLC [id number] 2 Common 11:55:44 [id number] [facility] 2021-03-29 Outpatient Barrera, Na STLMLC STLMLC [id number] 2 Common 11:17:10 [id number] [facility] 2021-03-29 Outpatient Barrera, Na STLMLC STLMLC [id number] 2 Common 11:06:23 [id number] [facility] 2021-03-29 Outpatient Barrera, Na STLMLC STLMLC [id number] 2 Common 10:58:22 [id number] [facility] 2022-02-16 2022-02-16 Outpatient MHIE MHIE [id number] Memoria 15:15:00 15:15:00 05 andres OconnellMaribel 2022-01-09 2022-01-09 (TEL) STLMLC STLMLC [id number] Co mmon 00:00:00 00:00:00 [facility] 2021-12-11 2021-12-11 (TEL) STLMLC STLMLC [id number] Co mmon 00:00:00 00:00:00 [facility] 2021-12-07 2021-12-07 (TEL) STLMLC STLMLC [id number] Co mmon 00:00:00 00:00:00 [facility] 2021-11-29 2021-11-29 OL DIG E/M STLMLC STLMLC [id number] Common 00:00:00 00:00:00 [facility] [facility] 2021-11-22 2021-11-22 (TEL) STLMLC STLMLC [id number] Co mmon 00:00:00 00:00:00 [facility] 2021-11-17 2021-11-18 Outpatient nullFlavo MNA [id number] Memoria 21:00:00 04:59:59 r Neurology 04 andres Gore 2021-11-17 2021-11-17 Outpatient DORON CorderoSCHER [id number] 16:00:00 23:59:59 Saul Cameron Read 2021-11-17 2021-11-17 Outpatient MHIE MHIE [id number] Memoria 16:00:00 16:00:00 04 andres Gore 2021-11-16 2021-11-16 (TEL) STLMLC STLMLC [id number] Co mmon 00:00:00 00:00:00 [facility] 2021-11-14 2021-11-14 (TEL) STLMLC STLMLC [id number] Co mmon 00:00:00 00:00:00 [facility] 2021-10-17 2021-10-17 (TEL) STLMLC STLMLC [id number] Co mmon 00:00:00 00:00:00 [facility] 2021-10-11 2021-10-11 (TEL) STLMLC STLMLC [id number] Co mmon 00:00:00 00:00:00 [facility] 2021-10-11 2021-10-11 OL DIG E/M STLMLC STLMLC [id number] Common 00:00:00 00:00:00 [facility] [place] [facility] 2021-10-06 2021-10-06 (TEL) STLMLC STLMLC [id number] Co mmon 00:00:00 00:00:00 [facility] 2021-09-18 2021-09-18 (TEL) STLMLC STLMLC [id number] Co mmon 00:00:00 00:00:00 [facility] 2021-09-15 2021-09-16 Outpatient nullFlavo MNA [id number] Memoria 15:00:00 04:59:59 r Neurology 03 andres Gore 2021-09-15 2021-09-15 Outpatient JAIME CorderoMISCHER JAIMEMISCHER [id number] 10:00:00 23:59:59 Saul 03 Jacek 2021-09-15 2021-09-15 Outpatient MHIE MHIE [id number] Memoria 10:00:00 10:00:00 03 l Bao 2021-09-12 2021-09-12 OL DIG E/M STLMLC STLMLC [id number] Common 00:00:00 00:00:00 [facility] it [facility] 2021-09-07 2021-09-07 (TEL) STLMLC STLMLC [id number] Co mmon 00:00:00 00:00:00 [facility] 2021-09-06 2021-09-06 (TEL) STLMLC STLMLC [id number] Co mmon 00:00:00 00:00:00 [facility] 2021-08-30 2021-08-30 (TEL) STLMLC STLMLC [id number] Co mmon 00:00:00 00:00:00 [facility] 2021-08-21 2021-08-21 (TEL) STLMLC STLMLC [id number] Co mmon 00:00:00 00:00:00 [facility] 2021-08-18 2021-08-18 (TEL) STLMLC STLMLC [id number] Co mmon 00:00:00 00:00:00 [facility] 2021-08-16 2021-08-16 (TEL) STLMLC STLMLC [id number] Co mmon 00:00:00 00:00:00 [facility] 2021-08-15 2021-08-15 (TEL) STLMLC STLMLC [id number] Co mmon 00:00:00 00:00:00 [facility] 2021-08-08 2021-08-08 (TEL) STLMLC STLMLC [id number] Co mmon 00:00:00 00:00:00 [facility] 2021-07-18 2021-07-19 Outpatient nullFlavo MNA [id number] Memoria 21:15:00 04:59:59 r Neurology 02 andres Gore 2021-07-18 2021-07-18 Outpatient Krell, MHMISCHER MHMISCHER [id number] 16:15:00 23:59:59 Saul 02 Jacek 2021-07-18 2021-07-18 Outpatient MHIE MHIE [id number] Memoria 16:15:00 16:15:00 02 l Bao 2021-07-05 2021-07-05 OL DIG E/M STLMLC STLMLC [id number] Common 00:00:00 00:00:00 SVC 11-20 Spir it MIN - [facility] 2021-07-03 2021-07-03 (TEL) STLMLC STLMLC [id number] Co mmon 00:00:00 00:00:00 [facility] 2021-06-28 2021-06-28 OFFICE STLMLC STLMLC [id number] Co mmon 00:00:00 00:00:00 VISIT [facility] PT - [facility] LEVEL 4 [facility] 2021-06-21 2021-06-21 (TEL) STLMLC STLMLC [id number] Co mmon 00:00:00 00:00:00 [facility] 2021-06-20 2021-06-20 OFFICE STLMLC STLMLC [id number] Co mmon 00:00:00 00:00:00 VISIT EST Spir it PT LEVEL 3 - [facility] 2021-06-07 2021-06-07 (TEL) STLMLC STLMLC [id number] Co mmon 00:00:00 00:00:00 [facility] 2021-06-01 2021-06-01 (TEL) STLMLC STLMLC [id number] Co mmon 00:00:00 00:00:00 [facility] 2021-06-01 2021-06-01 OFFICE STLMLC STLMLC [id number] Co mmon 00:00:00 00:00:00 VISIT EST Spir it PT LEVEL 3 [facility] 2021-06-01 2021-06-01 (TEL) STLMLC STLMLC [id number] Co mmon 00:00:00 00:00:00 [facility] 2021-05-25 2021-05-25 Ambulatory nullFlavo MNA [id number] Memoria 18:00:00 18:00:00 Pre-Reg r Neurology 01 l Amrik Gore 2021-05-25 2021-05-25 Outpatient JAIMEIE LUCIA [id number] Memoria 13:00:00 13:00:00 01 andres Gore 2021-05-25 2021-05-25 Outpatient DORON Cordero [id number] 13:00:00 13:00:00 Saul 01 Jacek 2021-05-22 2021-05-22 (TEL) STLMLC STLMLC [id number] Co mmon 00:00:00 00:00:00 [facility] 2021-05-05 2021-05-05 (TEL) STLMLC STLMLC [id number] Co mmon 00:00:00 00:00:00 [facility] 2021-04-27 2021-04-28 Outpatient nullFlavo MNA [id number] Memoria 17:00:00 05:59:59 r Neurology 00 l Shelbyvelia Gore 2021-04-27 2021-04-27 [facility] [id number] 11:00:00 23:59:59 Saul 00 Jacek 2021-04-27 2021-04-27 Outpatient MHIE MHIE [id number] Memoria 11:00:00 11:00:00 00 l Bao 2021-04-24 2021-04-24 (TEL) STLMLC STLMLC [id number] Co mmon 00:00:00 00:00:00 [facility] 2021-04-24 2021-04-24 (TEL) STLMLC STLMLC [id number] Co mmon 00:00:00 00:00:00 [facility] 2021-04-18 2021-04-18 (TEL) STLMLC STLMLC [id number] Co mmon 00:00:00 00:00:00 [facility] 2021-04-07 2021-04-07 (TEL) STLMLC STLMLC [id number] Co mmon 00:00:00 00:00:00 [facility] 2021-04-07 2021-04-07 (TEL) STLMLC STLMLC [id number] Co mmon 00:00:00 00:00:00 [facility] 2021-03-31 2021-03-31 (TEL) STLMLC STLMLC [id number] Co mmon 00:00:00 00:00:00 [facility] 2021-03-28 2021-03-28 (TEL) STLMLC STLMLC [id number] Co mmon 00:00:00 00:00:00 [facility] 2021-03-17 2021-03-17 (TEL) STLMLC STLMLC [id number] Co mmon 00:00:00 00:00:00 [facility] 2021-03-16 2021-03-16 (TEL) STLMLC STLMLC [id number] Co mmon 00:00:00 00:00:00 [facility] 2021-03-16 2021-03-16 (TEL) STLMLC STLMLC [id number] Co mmon 00:00:00 00:00:00 [facility] 2021-03-13 2021-03-13 OFFICE STLMLC STLMLC [id number] Co mmon 00:00:00 00:00:00 VISIT [facility] 4 [facility] 2021-03-10 2021-03-10 (TEL) STLMLC STLMLC [id number] Co mmon 00:00:00 00:00:00 [facility] 2020-10-14 2020-10-14 [facility] [id number] Univers 09:51:55 23:59:00 Encounter Shonda Lynch [place] [id number] ity of [place] [id number] [facility] [id number] [facility] [address] [place] 2020-10-14 2020-10-14 [facility] [id number] Univers 10:14:41 11:07:28 Visit [facility] [id number] it y of Surgical [id number] Yaya as Special [id number] Wa dical es 198 [facility] 2020-10-14 2020-10-14 [facility] [id number] Univers 00:00:00 00:00:00 [facility] 2020-10-14 2020-10-14 Orders Doctor [place] [id number] Univers 00:00:00 00:00:00 Only Unassigned, NIKOLE [id number] ity of [facility] [id number] [facility] [place] [id number] [address] 2020-10-07 2020-10-07 Outpatient Sendy [place], [facility] [id number] Univers 08:30:00 08:30:00 ELLE dalal [facility] 2020-10-03 2020-10-03 Outpatient STLMLC STLMLC [id number] Common 00:00:00 00:00:00 [facility] 2020-09-27 2020-09-27 Outpatient STLMLC STLMLC [id number] Common 00:00:00 00:00:00 [facility] 2020-09-27 2020-09-27 Outpatient STLMLC STLMLC [id number] Common 00:00:00 00:00:00 [facility] 2020-08-24 2020-08-24 Outpatient STLMLC STLMLC [id number] Common 00:00:00 00:00:00 [facility] 2020-08-24 2020-08-24 Outpatient STLMLC STLMLC [id number] Common 00:00:00 00:00:00 [facility] 2020-03-30 2020-03-30 Outpatient STLMLC STLMLC [id number] Common 00:00:00 00:00:00 [facility] 2020-02-08 2020-02-08 Outpatient STLMLC STLMLC [id number] Common 00:00:00 00:00:00 [facility] 2019-12-28 2019-12-28 Outpatient STLMLC STLMLC [id number] Common 00:00:00 00:00:00 [facility] 2019-12-21 2019-12-21 Outpatient STLMLC STLMLC [id number] Common 00:00:00 00:00:00 [facility] 2019-12-21 2019-12-21 Outpatient STLMLC STLMLC [id number] Common 00:00:00 00:00:00 [facility] 2019-12-14 2019-12-14 Outpatient STLMLC STLMLC [id number] Common 00:00:00 00:00:00 [facility] 2019-08-27 2019-08-27 [facility] [id number] Common 08:35:00 08:35:[address] [facility] 2019-08-10 2019-08-10 [facility] [id number] Common 14:58:00 14:58:[address] [facility] 2019-08-07 2019-08-07 [facility] [id number] Common 15:31:00 15:31:[address] [facility] 2019-08-06 2019-08-06 [facility] [id number] Common 08:00:00 08:00:[address] [facility] 2019-07-06 2019-07-06 [facility] [id number] Common 16:34:00 16:34:[address] [facility] 2019-06-11 2019-06-11 [facility] [id number] Common 11:14:00 11:14:[address] [facility] 2019-05-28 2019-05-28 [facility] [id number] Common 16:13:00 16:13:[address] [facility] 2019-03-19 2019-03-19 Out[facility] [id number] Common 16:53:00 16:53:[address] [facility] 2019-03-17 2019-03-17 Out[facility] [id number] Common 08:02:00 08:02:[address] [facility] 2019-03-11 2019-03-11 [facility] [id number] Common 15:56:00 15:56:[address] [facility] 2019-03-11 2019-03-11 Out[facility] [id number] Common 08:53:00 08:53:[address] [facility] 2019-03-10 2019-03-10 [facility] [id number] Common 13:40:00 13:40:[address] [facility] 2018-10-28 2018-10-28 Out[facility] [id number] Common 11:44:00 11:44:[address] [facility] 2018-10-09 2018-10-09 Out[facility] [id number] Common 09:34:00 09:34:[address] [facility] 2018-09-01 2018-09-01 Out[facility] [id number] Common 08:40:00 08:40:[address] [facility] 2018-08-29 2018-08-29 [facility] [id number] Common 13:39:00 13:39:[address] [facility] 2018-06-13 2018-06-13 Out[facility] 25 Common 14:41:00 14:41:[address] [facility] 2018-06-11 2018-06-11 Out[facility] [id number] Common 09:59:00 09:59:[address] [facility] 2018-06-03 2018-06-03 Out[facility] [id number] Common 11:00:00 11:00:00 [address] [facility] 2018-05-12 2018-05-12 Out[facility] [id number] Common 09:43:00 09:43:[address] [facility] 2018-04-17 2018-04-17 Out[facility] [id number] Common 13:45:00 13:45:00 t Specialty/U Sp vesta Specialty rology - [facility] 2018-04-03 2018-04-03 [facility] [id number] Common 08:31:00 08:31:[address] [facility] 2018-03-28 2018-03-28 [facility] [id number] Common 13:10:00 13:10:[address] [facility] 2018-03-28 2018-03-28 Out[facility] [id number] Common 10:52:00 10:52:00 t Specialty/U Sp vesta Specialty rology - [facility] /[facility] Clinic [facility] 2018-03-26 2018-03-26 [facility] [id number] Common 16:01:00 16:01:[address] [facility] 2018-03-25 2018-03-25 Out[facility] [id number] Common 08:15:00 08:15:[address] [facility] 2017-12-16 2017-12-16 Outpatient STLMLC STLMLC [id number] Common 00:00:00 00:00:00 [facility] Results Test Description Test Time Test Comments Results Result [facility] e Comments XR KNEE 3 VW 2020-10-02 1. University o f BILATERAL 3 ?Osteoarthritis. [facility] dicri 17:10:44 RL: [address] HISTORY: ?bilateral knee [...]
[2022-01-27] MEDS ORDERED: LEVALBUTEROL 1.25 MG/3 ML NEB ONE (03:27)
[2022-01-27] MEDS ORDERED: METHYLPREDNISOLONE 125 MG INJ ONE (03:27)
[2022-01-27 03:53] LABS: Absolute Lymphocytes (CBC) 2.6 K/uL (0.7-4.9); Hematocrit 39.2 % (36.0-45.0); Lymphocytes % 18.1 % (15.3-44.8); MCV 99.2 fL (80-100); MPV 8.4 fL (7.6-11.3); RBC Red Blood Cell Count 3.96 M/uL (3.86-4.86)
[2022-01-27 03:55] LABS: Protime INR 1.04
[2022-01-27 04:12] LABS: ALT/SGPT 22 U/L (12-78); AST/SGOT 17 U/L (15-37); Albumin 3.1 g/dL (3.4-5.0); Alkaline Phosphatase 95 U/L (45-117); BUN Blood Urea Nitrogen 23 mg/dL (7-18); Bicarbonate 28 mmol/L (21-32); Bilirubin Direct < 0.1 mg/dL (0-0.2); Bilirubin Total 0.3 mg/dL (0.2-1.0); Glomerular Filtration Rate 39 ml/min (=/>90); Glucose Level 90 mg/dL (74-106); NT PRO-BNP 4721 pg/mL (<125); Potassium 4.9 mmol/L (3.5-5.1); Sodium Level 134 mmol/L (136-145)
[2022-01-27 04:13] LABS: Troponin High Sensitivity 744.1 pg/mL (<58.9)
[2022-01-27] MEDS ORDERED: ASPIRIN 81 MG CHEWABLE TABLET ONE (04:19)
[2022-01-27] MEDS ORDERED: FENTANYL CITR 100 MCG/2 ML ONE (04:20)
[2022-01-27] MEDS ORDERED: ONDANSETRON 4 MG/2 ML VIAL ONE (04:20)
[2022-01-27 04:27] LABS: SARS-COV-2 RT PCR NEGATIVE (NEGATIVE)
--- NOTE | 2022-01-27 07:09 | RAD REPORT ---
EXAM DESCRIPTION: CT - Chest For Pe Angio - 01/27/2022 5:13 am CLINICAL HISTORY: shortness of breath COMPARISON: Chest Angio dated 05/05/2021hest Angio dated 05/05/2021 TECHNIQUE: Dynamically enhanced axial 3 mm thick images of the chest were obtained during administra tion of <100> mL Isovue 370 IV contrast. Coronal and oblique reconstruction images were generated and reviewed. Exam utilizes a protocol for optimal evaluation of pulmonary arterial tree. Maximum intensity projections 3D imaging was utilized All CT scans are performed using dose optimization technique as appropriate and may include automated exposure control or mA/KV adjustment according to patient size. FINDINGS: Chest Wall: No suspicious thyroid nodules or pathologic lymphadenopathy. Lungs: No acute abnormality. Emphysema. Pleura: No significant effusions or pneumothorax. Mediastinum/nicholas: No pathologic lymphadenopathy. Pulmonary arteries/Aorta: No filling defect identified. No aortic aneurysm. Heart: No significant pericardial effusion. Normal heart size. Aortic valve calcifications. Upper abdomen: No acute abnormality.Cirrhotic liver morphology. Bones: No acute abnormality. IMPRESSION: Negative for pulmonary embolism. No other acute findings within the chest.
--- NOTE | 2022-01-27 07:50 | ER ---
Nurse's Notes [facility] Name: Earnest Baker Age: 71 yrs Sex: Female : 1950 Arrival Date: 01/27/2022 Time: 03:10 Bed 16 Private MD: Diagnosis: Heart failure, unspecified;Elevated Troponin;Elevated WBC Presentation: 01/27 03:10 Chief complaint: EMS states: She woke up feeling pain in her chest on inspiration. Pt kd3 has had a cough but does not feel sick. She does have some expiratory wheezing. pt dropped to 85 on room air but is normally on 4 L N/C at home. pt placed on 4 L and pt came back up to the upper 90's. Ebola Screen: No symptoms or risks identified at this time. Risk Assessment: Do you want to hurt yourself or someone else? Patient reports no desire to harm self or others. Onset of symptoms was January 27, 2022. 03:10 Method Of Arrival: EMS: [facility] kd3 03:10 Acuity: AMANDA 3 kd3 03:28 Coronavirus screen: Vaccine status: Patient reports receiving the 2nd dose of the covid kd3 vaccine. Initial Sepsis Screen: Does the patient meet any 2 criteria? No. Patient's initial sepsis screen is negative. Does the patient have a suspected source of infection? No. Patient's initial sepsis screen is negative. Triage Assessment: 03:14 General: Appears in no apparent distress. Behavior is calm, cooperative. Pain: kd3 Complains of pain in chest. Respiratory: Reports shortness of breath at rest Onset: The symptoms/episode began/occurred this morning, the patient has moderate shortness of breath. Historical: - PMHx: 03:13 COPD; diabetes mellitus; Home Oxygen; Hypertension; Hypothyroidism; Gastroesophageal kd3 reflux disease; - Immunization history:: Adult Immunizations up to date. - Social history:: Smoking status: Patient denies any tobacco usage or history of. - Family history:: not pertinent. - Hospitalizations: : No recent hospitalization is reported. Screenin:14 Abuse screen: Denies threats or abuse. Denies injuries from another. Nutritional kd3 screening: No deficits noted. Tuberculosis screening: No symptoms or risk factors identified. Fall Risk None identified. Assessment: 03:14 Pain: Complains of pain in chest. Cardiovascular: Capillary refill < 3 seconds in kd3 bilateral fingers Patient's skin is warm and dry. Rhythm is regular. Respiratory: Airway is patent Respiratory effort is even, unlabored, Breath sounds with wheezes bilaterally. 07:00 Reassessment: No changes from previously documented assessment. report received from ll1 timber buyer RN. 08:00 Reassessment: No changes from previously documented assessment. Patient and/or family ll1 updated on plan of care and expected duration. Pain level reassessed. Patient is alert, oriented x 3, equal unlabored respirations, skin warm/dry/pink. 09:00 Reassessment: No changes from previously documented assessment. Patient and/or family ll1 updated on plan of care and expected duration. Pain level reassessed. Patient is alert, oriented x 3, equal unlabored respirations, skin warm/dry/pink. Vital Signs: 03:28 BP 109 / 58; Pulse 89; Resp 23; Temp 98.2(O); Pulse Ox 100% on 4 lpm NC; Weight 93.89 kd3 kg; 04:05 BP 111 / 52; Pulse 93; Resp 18; Pulse Ox 100% ; kd3 09:30 BP 143 / 71; Pulse 96; Resp 18; Pulse Ox 96% on NC; ll1 ED Course: 03:10 Patient arrived in ED. kd3 03:12 Brad Galvez MD is Attending Physician. rn 03:13 Triage completed. kd3 03:13 Arm band placed on right wrist. kd3 03:14 Patient has correct armband on for positive identification. Bed in low position. Call kd3 light in reach. 03:14 No provider procedures requiring assistance completed. kd3 03:28 Dianne Quach, MANAV is Primary Nurse. kd3 03:48 COVID-19/FLU A+B Sent. rv1 03:49 Basic Metabolic Panel Sent. kd3 03:49 CBC with Diff Sent. kd3 03:49 LFT's Sent. kd3 03:49 NT PRO-BNP Sent. kd3 03:49 PT-INR Sent. kd3 03:49 Troponin HS Sent. kd3 03:59 XRAY Chest (1 view) In Process Unspecified. EDMS 04:13 Notified ED physician of a critical lab result(s). Trop 744.1. tw5 05:15 Chest For Pe Angio In Process Unspecified. EDMS 07:25 Attending Physician role handed off by Brad Galvez MD ms3 07:25 Navneet Rodrigues DO is Attending Physician. ms3 07:49 Edgar Galvez MD is Hospitalizing Provider. ms3 07:51 Raheel Thomas MD is Hospitalizing Provider. ms3 09:47 Patient admitted, IV remains in place. ll1 Administered Medications: 03:44 Drug: SOLU-Medrol (methylPrednisoLONE) 125 mg Route: IVP; Site: right antecubital; kd3 09:47 Follow up: Response: No adverse reaction ll1 03:49 Drug: Xopenex (levalbuterol) (3) 1.25 mg Route: Inhalation; kd3 09:47 Follow up: Response: No adverse reaction ll1 04:29 Drug: fentaNYL (PF) 25 mcg Route: IVP; Site: left antecubital; kd3 09:47 Follow up: Response: No adverse reaction ll1 04:29 Drug: Zofran (Ondansetron) 4 mg Route: IVP; Site: right antecubital; kd3 09:47 Follow up: Response: No adverse reaction ll1 04:30 Not Given (given in route by emss): Aspirin Chewable Tablet 324 mg PO once; 81 mg kd3 tablets x 4 Medication: 03:30 VIS not applicable for this client. kd3 Outcome: 07:49 Decision to Hospitalize by Provider. ms3 09:47 Admitted to ER Hold. Please see [facility] for further documentation. ll1 09:47 Condition: stable 09:47 Instructed on the need for admit. 19:09 Patient left the ED. jl7 Signatures: Dispatcher [employer] EDMS Brad Galvez MD MD rn Leal, Jahala, RN RN jl7 Beau Gonzales RN RN ll1 Navneet Rodrigues DO DO ms3 Ara Aguayo tw5 Dianne Quach RN RN kd3 Cecilia Mcdonald rv1
--- NOTE | 2022-01-27 07:50 | EDPHYS ---
Physician Documentation [facility] Name: Earnest Baker Age: 71 yrs Sex: Female : 1950 Arrival Date: 01/27/2022 Time: 03:10 Bed 16 Private MD: ED Physician Navneet Rodrigues HPI: 01/27 03:18 This 71 yrs old Female presents to ER via EMS with complaints of Shortness Of Breath. rn 03:18 The patient has shortness of breath at rest. rn 03:20 The patient or guardian reports chest pain that is located primarily in the substernal rn area. The patient or guardian reports chest pain that is located primarily in the anterior chest wall, left. Onset: just prior to arrival. The pain does not radiate. Associated signs and symptoms: Pertinent positives: cough, shortness of breath, Pertinent negatives: abdominal pain, headache, lower extremity swelling. The chest pain is described as sharp, stabbing. Duration: The patient or guardian reports multiple episodes, that are intermittent. Modifying factors: The symptoms are alleviated by nothing. the symptoms are aggravated by deep breath. Severity of pain: At its worst the pain was moderate in the emergency department the pain has improved. The patient has experienced similar episodes in the past. The patient has not recently seen a physician. Historical: - PMHx: 03:13 COPD; diabetes mellitus; Home Oxygen; Hypertension; Hypothyroidism; Gastroesophageal kd3 reflux disease; - Immunization history:: Adult Immunizations up to date. - Social history:: Smoking status: Patient denies any tobacco usage or history of. - Family history:: not pertinent. - Hospitalizations: : No recent hospitalization is reported. ROS: 03:20 Constitutional: Negative for fever, chills, and weight loss, Eyes: Negative for injury, rn pain, redness, and discharge, Neck: Negative for injury, pain, and swelling, Cardiovascular: Negative for palpitations, and edema, Respiratory: + cough and sob, + wheezing Abdomen/GI: Negative for abdominal pain, nausea, vomiting, diarrhea, and constipation, MS/Extremity: Negative for injury and deformity, Skin: Negative for injury, rash, and discoloration, Neuro: Negative for headache, weakness, numbness, tingling, and seizure. Exam: 03:20 Constitutional: This is a well developed, well nourished patient who is awake, alert, rn and in no acute distress. Head/Face: Normocephalic, atraumatic. Cardiovascular: Regular rate and rhythm. No pulse deficits. Respiratory: + mild tachypnea, no retractions, + coarse bilateral breath sounds with exp wheezing Abdomen/GI: Soft, non-tender Skin: Warm, dry with normal turgor. Normal color with no rashes, no lesions, and no evidence of cellulitis. MS/ Extremity: Pulses equal, no cyanosis. Neurovascular intact. Full, normal range of motion. Equal circumference. Neuro: Awake and alert, GCS 15 03:49 ECG was reviewed by the Attending Physician. rn Vital Signs: 03:28 BP 109 / 58; Pulse 89; Resp 23; Temp 98.2(O); Pulse Ox 100% on 4 lpm NC; Weight 93.89 kd3 kg; 04:05 BP 111 / 52; Pulse 93; Resp 18; Pulse Ox 100% ; kd3 09:30 BP 143 / 71; Pulse 96; Resp 18; Pulse Ox 96% on NC; ll1 MDM: 03:12 Patient medically screened. rn 06:54 Transition of care: After a detail discussion of the patient's case, care is rn transferred to [facility]. 07:51 Data reviewed: vital signs, nurses notes, lab test result(s), EKG, radiologic studies, ms3 and as a result, I will admit patient. Data interpreted:. Counseling: I had a detailed discussion with the patient and/or guardian regarding: the historical points, exam findings, and any diagnostic results supporting the discharge/admit diagnosis, lab results, radiology results, the need for further work-up and treatment in the hospital. ED course: Discussed case with Dr Fajardo and he will consult. Discussed case with Dr Thomas and he accepts patient as admission.. 07:53 HEART Score: History: Slightly Suspicious (0), ECG: Non specific repolarization ms3 disturbance / LBTB / PM (1), Age: > or = 65 years (2), Risk Factors: 1 or 2 risk factors (1), Troponin: > or = 3 x Normal Limit (2), Total Score = 6. 07:54 The patient was not given aspirin in the Emergency Department. Administered by EMS. ms3 01/27 03:13 Order name: Basic Metabolic Panel; Complete Time: :14 rn 01/27 03:13 Order name: CBC with Diff; Complete Time: 04:07 rn 01/27 03:13 Order name: LFT's; Complete Time: 04:14 rn 01/27 03:13 Order name: NT PRO-BNP; Complete Time: 04:14 01/27 03:13 Order name: PT-INR; Complete Time: 04:07 rn 01/27 03:13 Order name: Troponin HS; Complete Time: 04:14 rn 01/27 03:14 Order name: COVID-19/FLU A+B; Complete Time: 04:34 rn 01/27 09:07 Order name: Urine Dipstick-Ancillary; Complete Time: 09:10 EDMN 01/27 09:12 Order name: Urine Microscopic Only [facility] 01/27 09:12 Order name: Urine Culture [facility] 01/27 10:01 Order name: Urine Microscopic Only; Complete Time: 10:11 EDMN 01/27 10:11 Order name: CKMB Creatine Kinase MB; Complete Time: 10:12 [facility] 01/27 10:11 Order name: Troponin High Sensitivity; Complete Time: 10:12 [facility] 01/27 10:14 Order name: NT PRO-BNP; Complete Time: 13:49 EDMN 01/27 03:13 Order name: XRAY Chest (1 view) 01/27 03:13 Order name: EKG; Complete Time: 03:14 01/27 03:13 Order name: Cardiac monitoring; Complete Time: 03:45 01/27 03:13 Order name: EKG - Nurse/Tech; Complete Time: 03:44 rn 01/27 03:13 Order name: IV Saline Lock; Complete Time: 03:44 rn 01/27 03:13 Order name: Labs collected and sent; Complete Time: 03:44 rn 01/27 04:34 Order name: Chest For Pe Angio; Complete Time: 07:36 EDMN 01/27 10:14 Order name: Thyroid Stimulating Hormone; Complete Time: 13:49 EDMN 01/27 16:51 Order name: CKMB Creatine Kinase MB [facility] 01/27 16:52 Order name: Troponin High Sensitivity [facility] 01/27 03:13 Order name: O2 Per Protocol; Complete Time: 03:44 rn 01/27 03:13 Order name: O2 Sat Monitoring; Complete Time: 03:44 rn EC:49 Rate is 88 beats/min. Rhythm is regular. QRS [place] is Normal. CT interval is normal. QRS rn interval is normal. QT interval is normal. No Q waves. T waves are Normal. No ST changes noted. Clinical impression: NSR w/ Non-specific ST/T Changes. Interpreted by me. Reviewed by me. Administered Medications: 03:44 Drug: SOLU-Medrol (methylPrednisoLONE) 125 mg Route: IVP; Site: right antecubital; kd3 09:47 Follow up: Response: No adverse reaction ll1 03:49 Drug: Xopenex (levalbuterol) (3) 1.25 mg Route: Inhalation; kd3 09:47 Follow up: Response: No adverse reaction ll1 04:29 Drug: fentaNYL (PF) 25 mcg Route: IVP; Site: left antecubital; kd3 09:47 Follow up: Response: No adverse reaction ll1 04:29 Drug: Zofran (Ondansetron) 4 mg Route: IVP; Site: right antecubital; kd3 09:47 Follow up: Response: No adverse reaction ll1 04:30 Not Given (given in route by emss): Aspirin Chewable Tablet 324 mg PO once; 81 mg kd3 tablets x 4 Disposition: 07:54 Critical Care:. ms3 Disposition Summary: 01/27/22 07:49 Hospitalization Ordered Hospitalization Status: Inpatient Admission ms3 Condition: Stable ms3 Problem: new ms3 Symptoms: are unchanged ms3 Bed/Room Type: Standard ms3 Provider: Raheel Thomas(01/27/22 07:51) ms3 Location: [facility] ER HOLD(01/27/22 11:19) jl7 Room Assignment: ERHOLD-(01/27/22 11:19) jl7 Diagnosis - Heart failure, unspecified ms3 - Elevated Troponin ms3 - Elevated WBC ms3 Forms: - Medication Reconciliation Form ms3 - SBAR form ms3 Critical care time excluding procedures: 07:54 Critical care time: Bedside Care: 25 minutes, Consultation: 10 minutes, Family ms3 Intervention: 5 minutes. Total time: 40 minutes Signatures: Dispatcher [employer] EDKaryn Valdovinos FNP-C FNP-Petar Landa PA PA jmm Nieto, Roman, MD MD rn Leal, Jahala, RN RN jl7 Navneet Rodrigues DO DO ms3 Dianne Quach RN RN kd3 Beau Gonzales RN ll1 Corrections: (The following items were deleted from the chart) 07:51 07:49 Edgar Galvez ms3 ms3 11:19 07:49 Telemetry/MedSurg (Inpatient) ms3 jl7 11:19 07:49 ms3 jl7
[2022-01-27] MEDS ORDERED: ONDANSETRON 4 MG/2 ML VIAL IV PRN (08:19)
[2022-01-27] MEDS ORDERED: MAGNESIUM HYDROXIDE 8% 30 ML PO PRN (08:19)
[2022-01-27] MEDS ORDERED: ACETAMINOPHEN 500 MG TAB PO PRN (08:19)
[2022-01-27] MEDS ORDERED: ALBUTEROL 2.5 MG/3 ML NEB SOL NEB PRN (08:19)
--- NOTE | 2022-01-27 08:57 | P.HP ---
Certification for Inpatient With expected LOS: >2 Midnights Patient will require the following post-hospital care: None Practitioner: I am a practitioner with admitting privileges, knowledge of patient current condition, hospital course, and medical plan of care. Services: Services provided to patient in accordance with Admission requirements found in Title 42 Section 412.3 of the Code of Federal Regulations <TompkinsKaryn - Last Filed: 01/27/22 08:52> Patient History Date of Service: 01/27/22 Primary Care Provider: Dr. Barrera Reason for admission: Chest pain, CHF, BREANN History of Present Illness: Mrs. Baker is a 71 yo female who presented to the ED last pm with midsternal chest pressure/pain 8/10, diaphoresis, and nausea. She was given aspirin and evaluated in the ED. Her labs are significant for elevated troponin (744.1), BNP (4721), WBC (14.6), and creatinine change from 0.7 on 08/02/21 to 1.64 today. Mrs. Baker is a poor historian, denies dialysis at anytime yet there is an op note from Dr. Dee regarding a dialysis catheter placement. She states she is not diabetic but home medications include insulin. She sees Dr. Macario for pain management. Her stated history includes CAD with [place] 15yr ago, HTN, and Hyperlipidemia. Home medications list reviewed: Yes - Past Medical/Surgical History Has patient received pneumonia vaccine in the past: No Diabetic: No -: COPDon home oxygen -: Hypertension -: Chronic pain -: Major depressive disorder -: hyst/bladder suspension, bilateral lens replacement Psychosocial/ Personal History: Unemployed,, lives at home with her - Social History Smoking Status: Current every day smoker Smoking therapy provided: Yes (rush patch) Alcohol use: Yes CD- Drugs: No Caffeine use: No <Karyn Tompkins - Last Filed: 01/27/22 08:52> Date of Service: 01/28/22 <Raheel Thomas - Last Filed: 01/28/22 02:29> Allergies No Known Allergies Allergy (Verified 12/07/19 09:23) Home Medications: Cetirizine HCl [Zyrtec] 10 mg PO DAILY 05/05/21 Levothyroxine [Synthroid*] 50 mcg PO DAILY 05/05/21 Gabapentin 300 mg PO BEDTIME #30 05/12/21 Mometasone/Formoterol [Dulera 200 Mcg/5 Mcg Inhaler] 2 puff IH BID #1 inhaler 05/12/21 predniSONE [Deltasone*] 10 mg PO DAILY #70 tab 05/12/21 Review of Systems General: Sweats Eyes: Unremarkable ENT: Unremarkable Respiratory: Shortness of Breath Cardiovascular: Chest Pain Gastrointestinal: Nausea, Vomiting Genitourinary: Dysuria, Frequency Musculoskeletal: Foot Pain Integumentary: Unremarkable Neurological: Unremarkable <Karyn oTmpkins - Last Filed: 01/27/22 08:52> Physical Examination - Vital Signs Temperature: 98.2 F Blood Pressure: 111/52 Pulse: 96 Respirations: 24 Pulse Ox (%): 100 (4L O2) - Physical Exam General: Alert, In no apparent distress HEENT: Atraumatic, Normocephalic Respiratory: Rhonchi/gurgles Cardiovascular: Normal pulses, Abnormal S1 S2 Capillary refill: <2 Seconds Gastrointestinal: Normal bowel sounds Musculoskeletal: No clubbing, No swelling Integumentary: Skin breakdown, Other ( scabbing to forearms) Neurological: Normal speech, Other (poor historian, c/o neuropathy - decreased sensation to left foot, increased sensitivity to toes) Lymphatics: No axilla or inguinal lymphadenopathy Urinary: Other (BREANN per labs) - Studies Laboratory Data (last 24 hrs) 01/27/22 03:30: PT 11.4, INR 1.04 01/27/22 03:30: WBC 14.60 H, Hgb 13.1, Hct 39.2, Plt Count 343 01/27/22 03:30: Sodium 134 L, Potassium 4.9, BUN 23 H, Creatinine 1.44 H, Glucose 90, Total Bilirubin 0.3, AST 17, ALT 22, Alkaline Phosphatase 95 <Karyn Tompkins - Last Filed: 01/27/22 08:52> - Studies Laboratory Data (last 24 hrs) 01/27/22 03:30: PT 11.4, INR 1.04 01/27/22 03:30: WBC 14.60 H, Hgb 13.1, Hct 39.2, Plt Count 343 01/27/22 03:30: Sodium 134 L, Potassium 4.9, BUN 23 H, Creatinine 1.44 H, Glucose 90, Total Bilirubin 0.3, AST 17, ALT 22, Alkaline Phosphatase 95 <Raheel Thomas - Last Filed: 01/28/22 02:29> Assessment and Plan - Problems (Diagnosis) (1) Acute renal insufficiency Status: Acute Plan: Manage Fluid I&O, CHF, assess for infection secondary to dysuria (2) COPD exacerbation Onset Date: 06/24/14 Status: Acute Plan: Continue nebs, low dose prednisone with GI protection, rocephin 1gm iv daily for exacerbation (3) Chest pain Status: Acute Plan: Serial enzyme, heparin, aspirin, consult Dr. Fajardo Qualifiers: Chest pain type: unspecified Qualified Code(s): R07.9 - Chest pain, unspecified Discharge Plan: Home Plan to discharge in: 72 Hours - Advance Directives Does patient have a Living Will: No Does patient have a Durable POA for Healthcare: No - Code Status/Comfort Care Code Status Assessed: Yes Code Status: Full Code Time Spent Managing Pts Care (In Minutes): 70 <Karyn Tompkins - Last Filed: 01/27/22 08:52> Physician Review: Patient Assessed, Agree with Above Assessment and Plan <Raheel Thomas - Last Filed: 01/28/22 02:29>
[2022-01-27] MEDS ORDERED: CEFTRIAXONE 1,000 MG in NA CHLORIDE 0.9% 50 ML IVPB SCH (09:00)
[2022-01-27] MEDS ORDERED: HEPARIN 5000 UNIT/ML 1 ML VIAL SQ SCH (09:00)
[2022-01-27 09:07] LABS: Urine Blood 1+ (Negative); Urine Glucose Negative (Negative); Urine Protein Trace (Negative); Urine Specific Gravity 1.015 (1.005-1.030); Urine pH 5.5 (5.0-7.0)
[2022-01-27] MEDS ORDERED: SODIUM CHLORIDE 0.9% 10ML INJ IV PRN (09:39)
[2022-01-27] MEDS ORDERED: MORPHINE 2 MG/ML SYR IV PRN (09:47)
[2022-01-27 09:54] VITALS: O2SAT 96
[2022-01-27 10:01] LABS: Urine Bacteria <20 /HPF (<20); Urine Mucus Slight /HPF (None Seen); Urine RBC <5 /HPF (None Seen)
[2022-01-27 10:10] LABS: CKMB Creatine Kinase MB 10.9 ng/mL (1.0-3.6); Troponin High Sensitivity 384.8 pg/mL (<58.9)
[2022-01-27 10:14] LABS: Thyroid Stimulating Hormone 0.757 uIU/mL (0.360-3.740)
[2022-01-27] MEDS ORDERED: CEFTRIAXONE 1000 MG/VIAL ONE (10:36)
[2022-01-27] MEDS ORDERED: NA CHLORIDE 0.9% 50 ML IV ONE (10:36)
[2022-01-27] MEDS ORDERED: HEPARIN 5000 UNIT/ML 1 ML VIAL ONE (10:36)
[2022-01-27] MEDS ORDERED: IPRATROPIUM BROM 0.5MG/2.5ML IH PRN (10:51)
[2022-01-27 10:52] VITALS: BMI 37.3
[2022-01-27 12:20] VITALS: TEMP 98.7
--- NOTE | 2022-01-27 13:27 | CON ---
Date of Consultation: 01/27/2022 Reason For Consultation: Chest pain history and elevated troponin. History Of Present Illness: A 71-year-old female, presented to the emergency room with chest pressur e and nausea, diaphoresis. Pain is pressure like, radiates to left upper extremity, and troponins gr adually going up. The patient claimed that chest pain is going on and off. She has history of coron beverly artery disease and had an MS a long time ago. Past Medical History: COPD, hypertension, chronic kidney disease, congestive heart failure, coronary artery disease, and dyslipidemia. Medications: Refer to reconciliation sheet for detailed list. Allergies: NO KNOWN DRUG ALLERGIES. Family History: No premature coronary artery disease or cancer. Social History: She is a smoker. Does not drink or use any drugs. Review of Systems: All systems reviewed and they were negative except what mentioned in HPI. Physical Examination: Vital Signs: Reviewed. Head and Neck: Pupils are equal, reactive to light. Intact eye movements. No JVD. No cervical lym phadenopathy. Neck is supple. Thyroid is not enlarged. Lungs: Clear to auscultation bilaterally. No rhonchi, wheezing, or crackles. No accessory muscle u se. Heart: Regular rate and rhythm. No extra sounds. Abdomen: Soft, nontender. Bowel sounds positive. No organomegaly. No masses or hernia. No rigidi ty or rebound. Extremities: No edema, clubbing, or cyanosis. Intact pulses. Skin: No rash. Neurologic: Alert, awake, oriented x3. No acute focal deficits appreciated. Investigations: Troponin 744 and down to 384 with BUN is 23, creatinine 1.44, hemoglobin is 13.1. Assessment And Recommendations: 1.Non-ST elevation myocardial infarction. Start her on heparin drip, baby aspirin, and use nitrogly cerin p.r.n. for pain control and if blood pressure allows to, place a nitroglycerin patch on her 1 i nch q.8 hours to the upper chest wall and plan for coronary angiogram on Saturday. If condition worsen s or she starts having aggressive symptoms, then recommend a transfer for coronary angiogram. We orly l monitor the patient closely. 2.Chronic obstructive pulmonary disease with exacerbation. Continue current therapy. 3.Smoker. She was counseled against smoking in details. 4.Dyslipidemia. Continue statin. SR/MODL Voice ID: [id number] Report ID: [id number]
[2022-01-27] MEDS ORDERED: ENOXAPARIN 100 MG/ML SYR SQ SCH (15:00)
[2022-01-27] MEDS ORDERED: ENOXAPARIN 100 MG/ML SYR SQ ONE (17:08)
[2022-01-27] MEDS ORDERED: METOPROLOL TAR 25 MG TAB ONE (17:08)
[2022-01-27 17:14] VITALS: BP 155/65
[2022-01-27] MEDS ORDERED: METOPROLOL TAR 25 MG TAB PO SCH (18:00)
--- NOTE | 2022-01-27 19:05 | P.DS ---
Admission Date: 01/27/22 Discharge Date: 01/27/22 Primary Care Provider: Dr. Barrera Disposition: AMA-LEFT AGAINST MEDICAL ADVIC Discharge Condition: FAIR Reason for Admission: Chest pain, CHF, BREANN - Problems (1) NSTEMI (non-ST elevated myocardial infarction) Status: Acute (2) Essential hypertension Status: Chronic (3) T2DM (type 2 diabetes mellitus) Status: Chronic Qualifiers: Diabetes mellitus terminal makeup operator insulin use: unspecified care home insulin use status Diabetes mellitus complication status: without complication Qualified Code(s): E11.9 - Type 2 diabetes mellitus without complications (4) COPD exacerbation Status: Acute Brief History of Present Illness: Mrs. Baker is a 71 yo female who presented to the ED last pm with midsternal c hest pressure/pain 8/10, diaphoresis, and nausea. She was given aspirin and evaluated in the ED. Her labs are significant for elevated troponin (744.1), BNP (4721), WBC (14.6), and creatinine change from 0.7 on 08/02/21 to 1.64 today. Mrs. Baker is a poor historian, denies dialysis at anytime yet there is an op note from Dr. Dee regarding a dialysis catheter placement. She states she is not diabetic but home medications include insulin. She sees Dr. Macraio for pain management. Her stated history includes CAD with [place] 15yr ago, HTN, and Hyperlipidemia. Hospital Course: Started aspirin, atorvastatin, and renally dosed lovenox. Cardiology consulted. Patient was unhappy with the care she received from her nurse and wanted to leave. I explained the importance of her staying for further treatment and she refused. She signed out AMA. Vital Signs/Physical Exam: Temp Pulse Resp BP Pulse Ox 98.7 F 87 20 155/65 H 97 01/27/22 16:35 01/27/22 17:14 01/27/22 17:14 01/27/22 17:14 01/27/22 17:14 General: Alert, In no apparent distress, Obese HEENT: Atraumatic, PERRLA, EOMI Neck: Supple, JVD not distended Respiratory: Clear to auscultation bilaterally, Normal air movement Cardiovascular: Regular rate/rhythm, Normal S1 S2 Gastrointestinal: Normal bowel sounds, No tenderness Musculoskeletal: No tenderness Integumentary: No rashes Neurological: Normal speech, Normal tone, Normal affect Laboratory Data at Discharge: WBC 14.60 K/uL (4.3-10.9) H 01/27/22 03:30 Hgb 13.1 g/dL (12.0-15.0) 01/27/22 03:30 Hct 39.2 % (36.0-45.0) 01/27/22 03:30 Plt Count 343 K/uL (152-406) 01/27/22 03:30 PT 11.4 SECONDS (9.5-12.5) 01/27/22 03:30 INR 1.04 01/27/22 03:30 Sodium 134 mmol/L (136-145) L 01/27/22 03:30 Potassium 4.9 mmol/L (3.5-5.1) 01/27/22 03:30 BUN 23 mg/dL (7-18) H 01/27/22 03:30 Creatinine 1.44 mg/dL (0.55-1.3) H 01/27/22 03:30 Glucose 90 mg/dL (74-106) 01/27/22 03:30 Total Bilirubin 0.3 mg/dL (0.2-1.0) 01/27/22 03:30 AST 17 U/L (15-37) 01/27/22 03:30 ALT 22 U/L (12-78) 01/27/22 03:30 Alkaline Phosphatase 95 U/L (45-117) 01/27/22 03:30 Home Medications: Cetirizine HCl [Zyrtec] 10 mg PO DAILY 05/05/21 Levothyroxine [Synthroid*] 50 mcg PO DAILY 05/05/21 Gabapentin 300 mg PO BEDTIME #30 05/12/21 Mometasone/Formoterol [Dulera 200 Mcg/5 Mcg Inhaler] 2 puff IH BID #1 inhaler 0 05/12/21 predniSONE [Deltasone*] 10 mg PO DAILY #70 tab 05/12/21 Diet: ADA Followup: Sophia Barrera DO [ACTIVE - CAN ADMIT] - Physician Review: Patient Assessed, Agree with Above Assessment and Plan Time spent managing pt's care (in minutes): 10
[2022-01-27] MEDS ORDERED: ATORVASTATIN 40 MG TAB PO SCH (21:00)
[2022-01-28] MEDS ORDERED: TIOTROPIUM 5 SPRAYS/INHALER IH SCH (09:00)
[2022-01-28] MEDS ORDERED: FUROSEMIDE 40 MG TABLET PO SCH (09:00)
[2022-01-28] MEDS ORDERED: NICOTINE 14 MG/PAT TD SCH (09:00)
[2022-01-28] MEDS ORDERED: ASPIRIN EC 81 MG TAB PO SCH (09:00)
[2022-01-28] MEDS ORDERED: predniSONE 10 MG TAB PO SCH (09:00)
[2022-01-28] MEDS ORDERED: PANTOPRAZOLE 40 MG INJ IVP SCH (09:00)
--- NOTE | 2022-01-28 10:53 | RAD REPORT ---
EXAM DESCRIPTION: RAD - Chest Single View - 01/27/2022 3:57 am CLINICAL HISTORY: 71 years Female, Chest pain COMPARISON: 05/05/2021 TECHNIQUE: Single portable x-ray view of the chest performed on 01/27/2022 at 3:53 AM FINDINGS: The lungs are well expanded and are clear. There is no evidence of a pneumothorax. The cardiac silhouette is normal in size and configuration. The mediastinal contours are normal. No acute osseous abnormality is identified. No acute soft tissue abnormalities are seen. Lines and tubes: None. Free air: None IMPRESSION: No evidence of acute intrathoracic disease. Electronically signed by: Katt Seth DO 01/27/2022 5:59 AM DUST HANDLER Due to temporary technical issues with the PACS/Fluency reporting system, reports are being signed by the in house radiologists without review as a courtesy to insure prompt reporting. The interpreting radiologist is fully responsible for the content of the report.
--- NOTE | 2022-01-29 12:54 | EKG ---
Test Date: 2022-01-27 Test Time: 03:37:43 Trackwalker: RV MEASUREMENT RESULTS: Intervals: Rate: 88 FL: 180 QRSD: 78 QT: 358 QTc: 433 [place]: P: 69 FL: 180 QRS: 51 T: 45 INTERPRETIVE STATEMENTS: Normal sinus rhythm Low voltage QRS Septal infarct, age undetermined Abnormal ECG Compared to ECG 05/04/2021 21:14:37 Ventricular premature complex(es) no longer present Myocardial infarct finding still present Electronically Signed On 01-29-22 12:50:28 BEHAVIORAL HEALTH WORKER by Roger Fajardo
== END 2022-01-27 18:48 | disposition left against medical advice (07) | DRG 190 ==
LOC: ER 03:08 → ERHOLD 08:16
PROVIDERS: ADMIT Internal Medicine; ATTEND Internal Medicine
DX: J44.1 Chronic obstructive pulmonary disease with (acute) exacerbation (principal); I21.A1 Myocardial infarction type 2; N28.9 Disorder of kidney and ureter, unspecified; E11.9 Type 2 diabetes mellitus without complications; E03.9 Hypothyroidism, unspecified; K21.9 Gastro-esophageal reflux disease without esophagitis; I11.0 Hypertensive heart disease with heart failure; I50.9 Heart failure, unspecified; I25.10 Atherosclerotic heart disease of native coronary artery without angina pectoris; E78.5 Hyperlipidemia, unspecified; G89.29 Other chronic pain; I25.2 Old myocardial infarction; F17.200 Nicotine dependence, unspecified, uncomplicated; Z56.0 Unemployment, unspecified; Z96.1 Presence of intraocular lens; Z79.52 Long term (current) use of systemic steroids; Z99.81 Dependence on supplemental oxygen; Z53.29 Procedure and treatment not carried out because of patient's decision for other reasons; Z79.899 Other long term (current) drug therapy; Z79.890 Hormone replacement therapy; Z20.822 Contact with and (suspected) exposure to COVID-19
CPT/HCPCS: 0240U; 36415; 71045; 71275; 80048; 80076; 81003; 81015; 82553; 83880; 84443; 84484; 85025; 85610; 87086; 87088; 93005; 99285; J1644; J1650; J2405; J2930; J3010; J7614; Q9967

== ENCOUNTER 2022-11-03 06:57 | Observation (INO) | payer OTHER ==
--- OUTSIDE RECORDS SUMMARY | 2022-11-03 07:11 | XMS REPORT | Continuity of Care Document ---
:1950 Author Organization [facility] t Address [address] [place] [address] Care Team Providers Name Role Phone PCP, PATIENT DOES NOT HAVE A Primary Care Physician UnavailJennifer Barnard Attending Clinician Unavailable Adrián Richter Attending Clinician Unavailable Gaviota Goodwin Attending Clinician Unavailable Sophia Barrera Attending Clinician Unavailable RADIOLOGY Attending Clinician Unavailable Saul Cordero Attending Clinician Shonda Stout Attending Clinician SHONDA BUTTERFIELD Attending Clinician Unavailable Doctor Unassigned, [place] Attending Clinician Unavailable ELLE DUMONT Attending Clinician Unavailable Payers Payer Name Policy Type Policy Number Effective Date Expiration Date Syed vela [facility] [id number] 2020 DUAL COMP HMO D 00:00:00 SNP [facility] 53 [id number] 2020 [facility] ADVANTAGE 00:00:00 - [facility] Problems Condition Condition Condition Status Onset Resolution Last Treating Co mments Source Name Details Category Date Date Treatment Clinician Date No known No known Disease Unive rs active active ity of problems problems [facility] Acute COPD Problem Common exacerbati exacerbati Sp vesta on of COPD on - [facility] [id number] Encounter Problem Com mon for Spirit tobacco - [facility] use [facility] [id number] Allergic Problem Commo n rhinitis, Spirit unspecifie - CHI d St seasonalit [facility] y, Medical unspecifie Center d trigger Arrhythmia Arrhythmia Problem C [facility] [id number] Cigarette Problem Comm on nicotine Spirit dependence - [facility] without complicati [facility] on Medical Center Seasonal Seasonal Problem Commo n allergy allergies [facility] Thyroid Thyroid Problem Common disease disease [facility] Irritable IBS Problem Common bowel (irritable Spirit syndrome bowel - CHI syndrome) [facility] Acquired Acquired Problem Commo n hypothyroi hypothyroi Sp vesta dism dism [facility] [id number] Neuropathy Problem Co mmon [facility] [id number] Supplement Problem C ommon 07 al oxygen Spirit dependent [facility] [id number] Coronary Problem Comm on artery Spirit disease - [facility] involving [facility] coronary Medical artery Center without angina pectoris, unspecifie d whether [facility] or transplant ed heart Depression Depression Problem C [facility] Hypertensi HTN Problem Commo n on (hypertens Spirit ion) - [facility] Chronic CKD Problem Common kidney (chronic Spirit disease kidney - [facility] stage 4 disease), stage IV [facility] Psoriasis Psoriasis Problem Com mon [facility] [id number] Prediabete Problem Co mmon s [facility] Chronic Chronic Problem Common fatigue fatigue Spirit syndrome - [facility] [id number] Peripheral Problem Co mmon arterial Spirit disease [facility] [id number] History of Problem Co mmon ASCVD [facility] Hyponatrem Hyponatrem Problem C ommon ia ia Spirit [facility] [id number] SIADH Problem Common (syndrome Spirit of - CHI inappropri [facility] production Medica l ) Center [id number] Peripheral Problem Co mmon vascular Spirit disease, - [facility] unspecifie [facility] COPD - COPD Problem Common Chronic (chronic Spirit obstructiv obstructiv - CHI e e pulmonary pulmonary [place] s disease disease) Medical Center Anxiety Anxiety Problem Common [facility] Osteoporos Osteoporos Problem C ommon is is Spirit [facility] [id number] Unsteady Problem Commo n gait when Spirit walking - [facility] [id number] Obesity, Problem Comm on morbid, Spirit BMI - CHI 40.0-49.9 [facility] [id number] Fatty Problem Common liver Spirit - [facility] [id number] 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 [facility] [id number] Primary Problem Common insomnia [facility] - [facility] Cerebrovas Problem Resolve 2021-11-20 Memoria cular Cerebrovas d 03:08:35 l accident cular Bao (disorder) accident (disorder) Resolved Problem 11/20/2021 [facility] Neuro Hepatic Hepatic Problem Resolve 2021-11-20 M emoria failure failure d 03:08:35 l (disorder) (disorder) He rmann Resolved Problem 11/20/2021 [facility] Renal Renal Problem Resolve 2021-11-20 Mohinder paddy failure failure d 03:08:35 l syndrome syndrome Enrique n (disorder) (disorder) Resolved Problem 11/20/2021 [facility] Foot-drop Foot-drop Problem Active 2022-02-19 Memoria (finding) (finding) 02:19:49 l Active Bao Problem 02/19/2022 [facility] Hypothyroi Hypothyro Problem Active 2022-02-19 Memoria dism idism 02:19:49 l (disorder) (disorder) He rmann Active Problem 02/19/2022 [facility] Lumbar Lumbar Problem Active 2022-02-19 [facility] radiculopa radiculopa 02:19:49 l thy thy [place] (disorder) (disorder) Active Problem 02/19/2022 [facility] Lumbosacra Lumbosacr Problem Active 2022-02-19 Memoria l plexus al plexus 02:19:49 l neuropathy neuropathy He rmann (disorder) (disorder) Active Problem 02/19/2022 [facility] Paresthesi Paresthes Problem Active 2022-02-19 Memoria a ia 02:19:49 l (finding) (finding) Herm latricia Active Problem 02/19/2022 [facility] Transient Transient Problem Active 2022-02-19 Memoria ischemic ischemic 02:19:49 l attack attack Bao (disorder) (disorder) Active Problem 02/19/2022 [facility] [place] Allergies, Adverse Reactions, Alerts Allergy Allergy Status Severity Reaction(s) Onset Inactive Treating Comm ents Source Name Type Date Date Clinician NO KNOWN Drug Active Univers ALLERGIE Class ity of S [facility] Branch Pollen Pollen Active Micky Gore Social History Social Habit Start Date Stop Date Quantity Comments Source History SDOH University o f Alcohol Std [place] [facility] Drinks Branch History SDOH University o f Alcohol Binge [place] [facility] Branch Exposure to Not sure University SARS-CoV-2 [place] [facility] (event) Branch History of Current Smoker [facility]pi [facility] - Tobacco Use [facility] Sex Assigned At Common Sp vesta - [facility] Tobacco use and 2020-10-14 2020-10-14 Never used Universit y of exposure 00:00:00 00:00:00 [facility] Alcohol intake 2020-10-14 2020-10-14 Lifetime University of 00:00:00 00:00:00 non-drinker [facility] (finding) Branch History SDOH 2020-10-14 2020-10-14 1 University o f Alcohol Frequency 00:00:00 00:00:00 [facility] Branch Smoking Status Start Date Stop Date Source Unknown if ever smoked [facility] Tobacco smoking status 2021-11-17 21:01:03 Michelle Gore Never smoker [facility] Medications Ordered Filled Start Stop Current Ordering Indication Dosage Frequency Signature Comments Components Source Medication Medication Date Date Medication? Clinician (SIG) Name Name gabapentin Yes 600 mg = 2 M emoria 300 mg oral 9-16 cap, PO, l capsule 21:35: QID, # 240 Herm latricia 00 cap, 2 Refill(s), Pharmacy: [id number] gabapentin 2021-0 Yes 600 mg = 2 M emoria 300 mg oral 9-16 cap, PO, l capsule 21:35: QID, # 240 Herm latricia 00 cap, 2 Refill(s), Pharmacy: [facility][id number] gabapentin 2021-0 Yes 600 mg = 2 M emoria 300 mg oral 9-16 cap, PO, l capsule 21:35: QID, # 240 Herm latricia 00 cap, 2 Refill(s), Pharmacy: [facility][id number] gabapentin 2021-0 Yes 600 mg = 2 M emoria 300 mg oral 9-16 cap, PO, l capsule 21:35: QID, # 240 Herm latricia 00 cap, 2 Refill(s), Pharmacy: [facility][id number] nortriptyli 2021-0 Yes 10 mg = 1 M emoria ne 10 mg 9-02 cap, PO, l oral 19:16: Bedtime, # [place] capsule 00 30 cap, 3 Refill(s), Pharmacy: [id number] nortriptyli 2021-0 Yes 10 mg = 1 M emoria ne 10 mg 9-02 cap, PO, l oral 19:16: Bedtime, # [place] capsule 00 30 cap, 3 Refill(s), Pharmacy: [facility][id number] nortriptyli 2021-0 Yes 10 mg = 1 M emoria ne 10 mg 9-02 cap, PO, l oral 19:16: Bedtime, # [place] capsule 00 30 cap, 3 Refill(s), Pharmacy: [id number] nortriptyli 2021-0 Yes 10 mg = 1 M emoria [...] (90 Base) MCG/ACT MCG/ACT MCG/ACT Albuterol Albuterol 2022-0 No 2{puffs Albuterol Sulfate HFA Sulfate HFA [...] (90 Base) MCG/ACT MCG/ACT MCG/ACT Cefdinir Cefdinir 2021- No 1{capsu BID Cefdinir 300 MG 300 MG 8-10 08-20 le} 300 MG 00:00: 00:00 00 :00 Cefdinir Cefdinir 0 2- No 1{capsu BID Cefdinir 300 MG 300 MG 8-10 08-20 le} 300 MG 00:00: 00:00 00 :00 Cefdinir Cefdinir 0 2021- No 1{capsu BID Cefdinir 300 MG 300 MG 10-11 0820 le} 300 MG 00:00: 00:00 00 :00 DULoxetine 2022-0 Yes 60 mg = 1 Me moria 60 mg oral 7-15 cap, PO, l delayed 15:11: Daily, # Enrique n release 00 30 cap, 3 capsule Refill(s), Pharmacy: [facility][id number] gabapentin 2022-0 Yes 600 mg = 2 M emoria 300 mg oral 7-15 cap, PO, l capsule 15:11: TID, # 180 Herm latricia 00 cap, 2 Refill(s), Pharmacy: [facility][id number] gabapentin 2022-0 Yes 600 mg = 2 M emoria 300 mg oral 7-15 cap, PO, l capsule 15:11: TID, # 180 Herm latricia 00 cap, 2 Refill(s), Pharmacy: [facility][id number] DULoxetine 2022-0 Yes 60 mg = 1 Me moria 60 mg oral 7-15 cap, PO, l delayed 15:11: Daily, # Enrique n release 00 30 cap, 3 capsule Refill(s), Pharmacy: [id number] gabapentin 2022-0 Yes 600 mg = 2 M emoria 300 mg oral 7-15 cap, PO, l capsule 15:11: TID, # 180 Herm latricia 00 cap, 2 Refill(s), Pharmacy: [id number] DULoxetine 2022-0 Yes 60 mg = 1 Me moria 60 mg oral 7-15 cap, PO, l delayed 15:11: Daily, # Enrique n release 00 30 cap, 3 capsule Refill(s), Pharmacy: [id number] DULoxetine 2022-0 Yes 60 mg = 1 Me moria 60 mg oral 7-15 cap, PO, l delayed 15:11: Daily, # Enrique n release 00 30 cap, 3 capsule Refill(s), Pharmacy: [id number] gabapentin 2022-0 Yes 600 mg = 2 M emoria 300 mg oral 7-15 cap, PO, l capsule 15:11: TID, # 180 Herm latricia 00 cap, 2 Refill(s), Pharmacy: [id number] Ipratropium Ipratropium 2021-0 No 3{ml_as QID Ipratropiu -Albuterol -Albuterol 7-12 _needed m-Albutero 0.5-2.5 (3) 0.5-2.5 (3) 00:00: } l 0.5-2.5 MG/3ML MG/3ML 00 (3) MG/3ML Ipratropium Ipratropium 2022-0 No 3{ml_as QID Ipratropiu -Albuterol -Albuterol 7-12 _needed m-Albutero 0.5-2.5 (3) 0.5-2.5 (3) 00:00: } l 0.5-2.5 MG/3ML MG/3ML 00 (3) MG/3ML Ipratropium Ipratropium 2-0 No 3{ml_as QID Ipratropiu -Albuterol -Albuterol 7-12 [...] 00:00 100 MG 00 :00 Doxycycline Doxycycline 2- No 1{capsu BID Doxycyclin Hyclate 100 Hyclate 100 09-12 le} e Hyclate MG MG 00:00: 00:00 100 MG 00 :00 Doxycycline Doxycycline 2022- No 1{capsu BID Doxycyclin Hyclate 100 Hyclate 100 09-12 le} e Hyclate MG MG 00:00: 00:00 100 MG 00 :00 Azithromyci Azithromyci 2021-2021- No QD Azithromyc n 250 MG n 250 MG 09-12 in 250 MG 00:00: 00:00 00 :00 predniSONE predniSONE 2021-0 2- No QD predniSONE 20 MG 20 MG 09-12 20 MG 00:00: 00:00 00 :00 Azithromyci Azithromyci 2021-2- No QD Azithromyc n 250 MG n 250 MG 09-12 in 250 MG 00:00: 00:00 00 :00 predniSONE predniSONE 2021-0 2021- No QD predniSONE 20 MG 20 MG 09-12 20 MG 00:00: 00:00 00 :00 Benzonatate Benzonatate 2021-2021- No 1{capsu TID Benzonatat 200 MG 200 MG 08-23 le_as_n e 200 MG 00:00: 00:00 eeded} 00 :00 Benzonatate Benzonatate 2021-0 2021- No 1{capsu TID Benzonatat 200 MG 200 MG 08-23 le_as_n e 200 MG 00:00: 00:00 eeded} 00 :00 Cefdinir Cefdinir 2021-0 2021- No 1{capsu BID Cefdinir 300 MG 300 MG 08-22 le} 300 MG 00:00: 00:00 00 :00 Cefdinir Cefdinir 2021-0 2021- No 1{capsu BID Cefdinir 300 MG 300 MG 08-22 le} 300 MG 00:00: 00:00 00 :00 gabapentin 2-0 No 600 mg = 2 M emoria 300 mg oral 5-21 cap, PO, l capsule 00:37: BID, # 120 Herm latricia 00 cap, 0 Refill(s), Pharmacy: [id number] gabapentin 2021-0 No 600 mg = 2 M emoria 300 mg oral 5-21 cap, PO, l capsule 00:37: BID, # 120 Herm latricia 00 cap, 0 Refill(s), Pharmacy: [id number] gabapentin 2021-0 No 600 mg = 2 M emoria 300 mg oral 5-21 cap, PO, l capsule 00:37: BID, # 120 Herm latricia 00 cap, 0 Refill(s), Pharmacy: [id number] gabapentin 2021-0 No 600 mg = 2 M emoria 300 mg oral 5-21 cap, PO, l capsule 00:37: BID, # 120 Herm latricia 00 cap, 0 Refill(s), Pharmacy: [id number] Azelastine Azelastine 2021-0 No 2{spray QD Azelastine [...] HCl 10 MG 00:00: 00 Azelastine Azelastine 2-0 No 2{spray QD Azelastine HCl 0.1 % HCl 0.1 % 5-04 s_in_ea HCl 0.1 % 00:00: ch_nost 00 ril} Cetirizine Cetirizine 2-0 No 1{table Cetirizine HCl 10 MG HCl 10 MG 5-04 t} HCl 10 MG 00:00: 00 Azelastine Azelastine 2-0 No 2{spray QD Azelastine HCl 0.1 % [...] % 00:00: ch_nost 00 ril} Azelastine Azelastine 2-0 No 2{spray QD Azelastine HCl 0.1 % HCl 0.1 % 5-04 s_in_ea HCl 0.1 % 00:00: ch_nost 00 ril} Azelastine Azelastine 2-0 No 2{spray QD Azelastine HCl 0.1 % HCl 0.1 % 5-04 s_in_ea HCl 0.1 % 00:00: ch_nost 00 ril} Cetirizine Cetirizine 2-0 No 1{table Cetirizine HCl 10 MG HCl 10 MG 5-04 t} HCl 10 MG 00:00: 00 Azelastine Azelastine 2-0 No 2{spray QD Azelastine HCl 0.1 % HCl 0.1 % 5-04 s_in_ea HCl 0.1 % 00:00: ch_nost 00 ril} Cetirizine Cetirizine 2-0 No 1{table Cetirizine HCl 10 MG HCl 10 MG 5-04 t} HCl 10 MG 00:00: 00 Azelastine Azelastine 2-0 No 2{spray QD Azelastine HCl 0.1 % HCl 0.1 % 5-04 s_in_ea HCl 0.1 % 00:00: ch_nost 00 ril} Cetirizine Cetirizine 2-0 No 1{table Cetirizine HCl 10 MG HCl 10 MG 5-04 t} HCl 10 MG 00:00: 00 Azelastine Azelastine 2-0 No 2{spray QD Azelastine HCl 0.1 % HCl 0.1 % 5-04 s_in_ea HCl 0.1 % 00:00: ch_nost 00 ril} Cetirizine Cetirizine 2-0 No 1{table Cetirizine HCl 10 MG HCl 10 MG 5-04 t} HCl 10 MG 00:00: 00 Azelastine Azelastine 2-0 No 2{spray QD Azelastine HCl 0.1 % [...] t} 800 MG 00:00: 00 Symbicort Symbicort 2-0 No 2{puffs BID Symbicort 160-4.5 160-4.5 4-27 } 160-4.5 MCG/ACT MCG/ACT 00:00: MCG/ACT 00 Gabapentin Gabapentin 2022-0 No 1{table TID Gabapentin 800 MG 800 MG 4-27 t} 800 MG 00:00: 00 Symbicort Symbicort 2-0 No 2{puffs BID Symbicort 160-4.5 160-4.5 4-27 } 160-4.5 MCG/ACT MCG/ACT 00:00: MCG/ACT 00 Gabapentin Gabapentin 2022-0 No 1{table TID Gabapentin 800 MG 800 MG 4-27 t} 800 MG 00:00: 00 Symbicort Symbicort 2-0 No 2{puffs BID Symbicort 160-4.5 160-4.5 4-27 [...] t} 800 MG 00:00: 00 Gabapentin Gabapentin 2021-0 No 1{table TID Gabapentin 800 MG 800 MG 27 t} 800 MG 00:00: 00 Gabapentin Gabapentin 2-0 No 1{table TID Gabapentin 800 MG 800 MG 427 t} 800 MG 00:00: 00 Gabapentin Gabapentin 2-0 No 1{table TID Gabapentin 800 MG 800 MG 427 t} 800 MG 00:00: 00 Gabapentin Gabapentin 2-0 No 1{table TID Gabapentin 800 MG 800 MG 427 t} 800 MG 00:00: 00 Gabapentin Gabapentin 2-0 No 1{table TID Gabapentin 800 MG 800 MG 06-28 t} 800 MG 00:00: 00 Gabapentin Gabapentin 2-0 No 1{table TID Gabapentin 800 MG 800 MG 06-28 t} 800 MG 00:00: 00 Symbicort Symbicort 3- No 2{puffs BID Symbicort 160-4.5 160-4.5 06-2812 } 160-4.5 MCG/ACT MCG/ACT 00:00: 00:00 MCG/ACT 00 :00 Symbicort Symbicort 3- No 2{puffs BID Symbicort 160-4.5 160-4.5 06-2812 } 160-4.5 MCG/ACT MCG/ACT 00:00: 00:00 MCG/ACT 00 :00 Symbicort Symbicort 3- No 2{puffs BID Symbicort 160-4.5 160-4.5 06-28 } 160-4.5 MCG/ACT MCG/ACT 00:00: 00:00 MCG/ACT 00 :00 Symbicort Symbicort 3- No 2{puffs BID Symbicort 160-4.5 160-4.5 06-2812 } 160-4.5 MCG/ACT MCG/ACT 00:00: 00:00 MCG/ACT 00 :00 Symbicort Symbicort 3- No 2{puffs BID Symbicort 160-4.5 160-4.5 06-28- } 160-4.5 MCG/ACT MCG/ACT 00:00: 00:00 MCG/ACT [...] No 2{puffs BID Symbicort 160-4.5 160-4.5 06-28 1024 } 160-4.5 MCG/ACT MCG/ACT 00:00: 00:00 MCG/ACT 00 :00 Symbicort Symbicort 2- No 2{puffs BID Symbicort 160-4.5 160-4.5 06-2824 } 160-4.5 MCG/ACT MCG/ACT 00:00: 00:00 MCG/ACT 00 :00 Symbicort Symbicort 2- No 2{puffs BID Symbicort 160-4.5 160-4.5 06-28 1024 } 160-4.5 MCG/ACT MCG/ACT 00:00: 00:00 MCG/ACT 00 :00 Symbicort Symbicort 2- No 2{puffs BID Symbicort 160-4.5 160-4.5 06-2824 } 160-4.5 MCG/ACT MCG/ACT 00:00: 00:00 MCG/ACT 00 :00 Symbicort Symbicort 2- No 2{puffs BID Symbicort 160-4.5 160-4.5 06-2824 } 160-4.5 MCG/ACT MCG/ACT 00:00: 00:00 MCG/ACT 00 :00 Benzonatate Benzonatate 2- No 1{capsu Benzonatat 200 MG 200 MG 06-01 le_as_n e 200 MG 00:00: 00:00 eeded} 00 :00 Benzonatate Benzonatate 2- No 1{capsu Benzonatat 200 MG 200 MG 06-01 le_as_n e 200 MG 00:00: 00:00 eeded} 00 :00 Benzonatate Benzonatate 2- No 1{capsu Benzonatat 200 MG 200 MG 06-01 le_as_n e 200 MG 00:00: 00:00 eeded} 00 :00 Benzonatate Benzonatate 2021- No 1{capsu Benzonatat 200 MG 200 MG 06-01 le_as_n e 200 MG 00:00: 00:00 eeded} 00 :00 Cefdinir Cefdinir 2021-0 2021- No Cefdinir 300 MG 300 MG 06-01- 300 MG 00:00: 00:00 00 :00 Cefdinir Cefdinir 2021-0 2021- No Cefdinir 300 MG 300 MG 06-01- 300 MG 00:00: 00:00 00 :00 Cefdinir Cefdinir 2021-0 2021- No Cefdinir 300 MG 300 MG 06-01- 300 MG 00:00: 00:00 00 :00 Cefdinir Cefdinir 2021-0 2021- No Cefdinir 300 MG 300 MG 06-01 300 MG 00:00: 00:00 00 :00 albuterol Yes 0 Memoria 0.083% 2-24 Refill(s) l inhalation 17:47: [place] solution 00 trazodone Yes 50 mg = 1 Mem oria 50 mg oral 2-24 tab, PO, l tablet 17:47: Bedtime, # Yanira nn 00 30 tab, 1 Refill(s) Trelegy Yes = 1 Memoria Ellipta 100 2-24 inhalation l mcg-62.5 17:47: , [place] mcg-25 00 INHALATION mcg/inh , Daily, # inhalation 1 ea, 0 powder Refill(s) Metoprolol Yes 0 Memoria Tartrate 25 2-24 Refill(s) l mg oral 17:47: Bao tablet 00 levothyroxi Yes 0 Memori a ne 50 mcg 2-24 Refill(s) l (0.05 mg) 17:47: [place] oral tablet 00 Albuterol Yes 0 Memoria 0.83 MG/ML 2-24 Refill(s) l Inhalant 17:47: [place] Solution 00 DULoxetine Yes 0 Memoria 60 mg oral 2-24 Refill(s) l delayed 17:47: [place]ao release 00 capsule Trazodone Yes 50 mg = 1 Mem oria Hydrochlori 2-24 tab, PO, l de 50 MG 17:47: Bedtime, # Her veras Oral Tablet 00 30 tab, 1 Refill(s) Metoprolol Yes 0 Memoria Tartrate 25 2-24 Refill(s) l mg oral 17:47: [place] tablet 00 Albuterol Yes 0 Memoria 0.83 MG/ML 2-24 Refill(s) l Inhalant 17:47: [place]ao Solution 00 DULoxetine Yes 0 Memoria 60 mg oral 2-24 Refill(s) l delayed 17:47: Bao release 00 capsule Trazodone Yes 50 mg = 1 Mem oria Hydrochlori 2-24 tab, PO, l de 50 MG 17:47: Bedtime, # Her veras Oral Tablet 00 30 tab, 1 Refill(s) Trelegy Yes = 1 Memoria Ellipta 100 2-24 inhalation l mcg-62.5 17:47: , [place] mcg-25 00 INHALATION mcg/inh , Daily, # inhalation 1 ea, 0 powder Refill(s) Metoprolol Yes 0 Memoria Tartrate 25 2-24 Refill(s) l mg oral 17:47: [place] tablet 00 levothyroxi Yes 0 Memori a ne 50 mcg 2-24 Refill(s) l (0.05 mg) 17:47: Bao oral tablet 00 Albuterol Yes 0 Memoria 0.83 MG/ML 2-24 Refill(s) l Inhalant 17:47: [place]ao Solution 00 DULoxetine Yes 0 Memoria 60 mg oral 2-24 Refill(s) l delayed 17:47: Bao release capsule Trazodone Yes 50 mg = 1 Mem oria Hydrochlori 2-24 tab, PO, l de 50 MG 17:47: Bedtime, # Her veras Oral Tablet 00 30 tab, 1 Refill(s) Metoprolol 0 Yes 0 Memoria Tartrate 25 2-24 Refill(s) l mg oral 17:47: [place] tablet 00 albuterol 0 Yes 0 Memoria 0.083% 2-24 Refill(s) l inhalation 17:47: [place] solution 00 trazodone 0 Yes 50 mg = 1 Mem oria 50 mg oral 2-24 tab, PO, l tablet 17:47: Bedtime, # Yanira nn 00 30 tab, 1 Refill(s) Trelegy Yes = 1 Memoria Ellipta 100 2-24 inhalation l mcg-62.5 17:47: , Bao mcg-25 00 INHALATION mcg/inh , Daily, # inhalation 1 ea, 0 powder Refill(s) Metoprolol Yes 0 Memoria Tartrate 25 2-24 Refill(s) l mg oral 17:47: [place]ao tablet 00 levothyroxi Yes 0 Memori a ne 50 mcg 2-24 Refill(s) l (0.05 mg) 17:47: [place] oral tablet 00 Albuterol Yes 0 Memoria 0.83 MG/ML 2-24 Refill(s) l Inhalant 17:47: [place] Solution 00 DULoxetine Yes 0 Memoria 60 mg oral 2-24 Refill(s) l delayed 17:47: [place] release 00 capsule Trazodone Yes 50 mg = 1 Mem oria Hydrochlori 2-24 tab, PO, l de 50 MG 17:47: Bedtime, # Her veras Oral Tablet 00 30 tab, 1 Refill(s) Metoprolol Yes 0 Memoria Tartrate 25 2-24 Refill(s) l mg oral 17:47: Bao tablet 00 albuterol Yes 0 Memoria 0.083% 2-24 Refill(s) l inhalation 17:47: [place] solution 00 trazodone Yes 50 mg = 1 Mem oria 50 mg oral 2-24 tab, PO, l tablet 17:47: Bedtime, # Yanira nn 00 30 tab, 1 Refill(s) Trelegy Yes = 1 Memoria Ellipta 100 2-24 inhalation l mcg-62.5 17:47: , Bao mcg-25 00 INHALATION mcg/inh , Daily, # inhalation 1 ea, 0 powder Refill(s) Metoprolol 0 Yes 0 Memoria Tartrate 25 2-24 Refill(s) l mg oral 17:47: [place] tablet 00 levothyroxi Yes 0 Memori a ne 50 mcg 2-24 Refill(s) l (0.05 mg) 17:47: [place] oral tablet 00 ipratropium 2-0 Yes 0 Memori a 0.02% 2-24 Refill(s) l inhalation 17:46: [place] solution 00 gabapentin 2-0 Yes 600 mg = 2 M emoria 300 MG Oral 2-24 cap, 0 l Capsule 17:46: Refill(s) Yanira nn 00 Ipratropium 2022-0 Yes 0 Memori a Morgan 0.2 2-24 Refill(s) l MG/ML 17:46: [place] Inhalant 00 Solution gabapentin 2-0 Yes 600 mg = 2 M emoria 300 MG Oral 2-24 cap, 0 l Capsule 17:46: Refill(s) Yanira nn 00 Ipratropium 2-0 Yes 0 Memori a Morgan 0.2 2-24 Refill(s) l MG/ML 17:46: [place] Inhalant 00 Solution gabapentin 2-0 Yes 600 mg = 2 M emoria 300 MG Oral 2-24 cap, 0 l Capsule 17:46: Refill(s) Yanira nn 00 Ipratropium 2-0 Yes 0 Memori a Morgan 0.2 2-24 Refill(s) l MG/ML 17:46: [place] Inhalant 00 Solution ipratropium 2-0 Yes 0 Memori a 0.02% 2-24 Refill(s) l inhalation 17:46: [place] solution 00 gabapentin 2-0 Yes 600 mg = 2 M emoria 300 MG Oral 2-24 cap, 0 l Capsule 17:46: Refill(s) Yanira nn 00 Ipratropium 2-0 Yes 0 Memori a Morgan 0.2 2-24 Refill(s) l MG/ML 17:46: [place] Inhalant 00 Solution ipratropium 2-0 Yes 0 Memori a 0.02% 2-24 Refill(s) l inhalation 17:46: [place] solution 00 traZODone traZODone 2-0 No QD traZODone HCl 50 MG HCl 50 MG 1-14 HCl 50 MG 00:00: 00 traZODone traZODone 2-0 No QD traZODone HCl 50 MG HCl 50 MG 1-14 HCl 50 MG 00:00: 00 traZODone traZODone 2021-0 No QD traZODone HCl 50 MG HCl 50 MG 1-14 HCl 50 MG 00:00: 00 traZODone traZODone 2-0 No QD traZODone HCl 50 MG HCl 50 MG 1-14 HCl 50 MG 00:00: 00 traZODone traZODone 2021-0 No QD HCl 50 MG HCl 50 MG -14 00:00: 00 traZODone traZODone 2-0 No QD traZODone HCl 50 MG HCl [...] MG 1-14 HCl 50 MG 00:00: 00 Macrobid Macrobid 2021-0 2021- No 1{capsu BID Macrobid 100 MG 100 MG 03-17 le_with 100 MG 00:00: 00:00 _food} 00 :00 Macrobid Macrobid 2021-0 2021- No 1{capsu BID Macrobid 100 MG 100 MG 03-17 le_with 100 MG 00:00: 00:00 _food} 00 :00 Macrobid Macrobid 2021-0 2021- No 1{capsu BID Macrobid 100 MG 100 MG 03-17 le_with 100 MG 00:00: 00:00 _food} 00 :00 triamcinolo 2020-2020- No [id number] 40mg Univers ne 10-14 ity of acetonide 17:00: 15:50 [place] (KE[place]LOG) 00 :00 Medical injection Branch 40 mg triamcinolo 2020- No [id number] 40mg [facility]14 [facility] of acetonide 17:00: 15:49 [place] ([place]) 00 :00 Medical injection Branch 40 mg triamcinolo 2020- No [id number] 40mg 40 mg, [facility] 10[facility]14 [facility] of acetonide 17:00: 15:49 [place] 00 :00 1 dose, Medical injection Fri Branch 40 mg 10/14/20 at 1200, Routine triamcinolo 2020- No [id number] 40mg 40 mg, [facility] 10[facility]14 [facility] of acetonide 17:00: 15:50 [place], [place]CE[place] 00 :00 1 dose, Medical injection Fri Branch 40 mg 10/14/20 at 1200, Routine triamcinolo 2020- No [id number] 40mg [facility] of acetonide 17:00: 15:50 [place] ([place]) 00 :00 Medical injection Branch 40 mg triamcinolo 2020- No [id number] 40mg [facility]y of acetonide 17:00: 15:49 [place] ([place]) 00 :00 Medical injection Branch 40 mg triamcinolo 2020- No [id number] 40mg 40 mg, [facility] 10[facility]14 [facility] ity of acetonide 17:00: 15:49 lar, ONCE, [place] ([place]) 00 :00 1 dose, Medical injection Fri Branch 40 mg 10/14/20 at 1200, Routine triamcinolo 2020- No [id number] 40mg 40 mg, [facility] ne 10-14 Intramuscu [...] capsule 00:00: [place] 00 [facility] ipratropium 1-0 Yes Univer s 0.02 % 7-29 ity [...] mcg/actuati 00 Medical on nasal Branch spray Cetirizine Cetirizine 2020-0 No 1{table Cetirizine HCl [...] HCl 10 MG 00:00: 00 Cetirizine Cetirizine 1-0 No 1{table Cetirizine HCl 10 MG HCl [...] HCl 10 MG 00:00: 00 Cetirizine Cetirizine 1-0 No 1{table Cetirizine HCl 10 MG HCl 10 MG 6-23 t} HCl 10 MG 00:00: 00 Cetirizine Cetirizine 1-0 No 1{table Cetirizine HCl 10 MG HCl [...] HCl 10 MG 00:00: 00 Cetirizine Cetirizine 1-0 No 1{table Cetirizine HCl 10 MG HCl 10 MG 6-23 t} HCl 10 MG 00:00: 00 Cetirizine Cetirizine 2020-0 No 1{table HCl 10 MG HCl 10 MG 6-23 t} 00:00: 00 Cetirizine Cetirizine 1-0 No 1{table Cetirizine HCl 10 MG HCl 10 MG 6-23 t} HCl 10 MG 00:00: 00 Cetirizine Cetirizine 2020-0 No 1{table HCl 10 MG HCl 10 MG 6-23 t} 00:00: 00 Cetirizine Cetirizine 1-0 No 1{table Cetirizine HCl 10 MG HCl [...] 6-23 t} HCl 10 MG 00:00: 00 DULoxetine 1-0 Yes [facility] 60 mg 6-07 ity of capsule 00:00: [address] atorvastati 2020-0 Yes Univer s n 40 mg 6-07 ity of tablet 00:00: [address] levothyroxi 1-0 Yes Univer s ne 50 mcg 6-07 ity of tablet 00:00: [address] DULoxetine 1-0 Yes [facility] 60 mg 6-07 ity of capsule 00:00: [address] atorvastati 1-0 Yes Univer s n 40 mg 6-07 ity of tablet 00:00: [address] levothyroxi 1-0 Yes Univer s ne 50 mcg 6-07 ity of tablet 00:00: [address] DULoxetine 2021-0 Yes [facility] 60 mg 6-07 ity of capsule 00:00: [address] atorvastati 1-0 Yes Univer s n 40 mg 6-07 ity of tablet 00:00: [address] levothyroxi 2021-0 Yes Univer s ne 50 mcg 6-07 ity of tablet 00:00: [place] 00 [facility] DULoxetine 2020-0 Yes [facility] 60 mg 6-07 ity of capsule 00:00: [place] [facility] atorvastati 2020-0 Yes Univer s n 40 mg 6-07 ity of tablet 00:00: [place] [facility] levothyroxi 2020-0 Yes Univer s ne 50 mcg 6-07 ity of tablet 00:00: [place] [facility] DULoxetine 2020-0 Yes [facility] 60 mg 6-07 ity of capsule 00:00: [place] [facility] atorvastati 2020-0 Yes Univer s n 40 mg 6-07 ity of tablet 00:00: [place] [facility] levothyroxi 2020-0 Yes Univer s ne 50 mcg 6-07 ity of tablet 00:00: [place] [facility] lisinopriL 2020-0 Yes [facility] 20 mg 6-05 ity of tablet 00:00: [place] 00 [facility] potassium 2020-0 Yes [facility] chloride 10 6-05 ity of mEq CR 00:00: [place] tablet 00 [facility] lisinopriL 2020-0 Yes [facility] 20 mg 6-05 ity of tablet 00:00: [place] 00 [facility] potassium 2020-0 Yes [facility] chloride 10 6-05 ity of mEq CR 00:00: [place] tablet 00 [facility] lisinopriL 2020-0 Yes [facility] 20 mg 6-05 ity of tablet 00:00: [place] 00 [facility] potassium 1-0 Yes [facility] chloride 10 6-05 ity of mEq CR 00:00: [place] tablet 00 [facility] lisinopriL 2020-0 Yes [facility] 20 mg 6-05 ity of tablet 00:00: [place] 00 [facility] potassium 2020-0 Yes [facility] chloride 10 6-05 ity of mEq CR 00:00: [place] tablet 00 [facility] lisinopriL 2020-0 Yes [facility] 20 mg 6-05 ity of tablet 00:00: [place] 00 [facility] potassium 2020-0 Yes [facility] chloride 10 6-05 ity of mEq CR 00:00: [place] tablet 00 Medical [facility] Macrobid Macrobid 2020-0 2020- No Na Barrera 1 capsule Common 08-05 with food Spirit 00:00: 00:00 - [facility] :00 [facility] Oxygen- Oxygen- 2020-0 No Oxygen- Portable Portable [...] No 2{spray QD Flonase 50 MCG/ACT MCG/ACT 10-28 _in_eac MCG/ACT 00:00: h_nostr 00 il} Flonase [...] h_nostr 00 il} Flonase 50 Flonase 50 2019- No 2{spray QD Flonase 50 MCG/ACT MCG/ACT [...] h_nostr 00 il} Flonase 50 Flonase 50 2019- No 2{spray QD Flonase 50 MCG/ACT MCG/ACT [...] MCG/ACT 00:00: h_nostr 00 il} Montelukast Montelukast 2018- No 1{table QD Montelukas Sodium 10 Sodium 10 7-01 t} t Sodium MG MG 00:00: 10 MG 00 Kenalog Kenalog 2019-0 No 40mg Common (Triamcinol (Triamcinol 7-01 S pirit one) one) 00:00: - [facility] 00 [facility] Montekast Montekast 2019-0 No 1{table QD Montelukas Sodium 10 Sodium 10 7-01 t} t Sodium MG MG 00:00: 10 MG 00 Kenalog Kenalog 2019-0 No 40mg Common (Triamcinol (Triamcinol 7-01 S pirit one) one) 00:00: - [facility] 00 [facility] Montekast Montekast 2019-0 No 1{table QD Montelukas Sodium 10 Sodium 10 7-01 t} t Sodium MG MG 00:00: 10 MG 00 Kenalog Kenalog 2019-0 No 40mg Common (Triamcinol (Triamcinol 7-01 S pirit one) one) 00:00: - [facility] 00 [facility] No 1{table QD Montelukas Sodium 10 Sodium 10 7-01 t} t Sodium MG MG 00:00: 10 MG 00 Kenalog Kenalog 2019-0 No 40mg Common (Triamcinol (Triamcinol 7-01 S pirit one) one) 00:00: - [facility]table QD Montelukas Sodium 10 Sodium 10 7-01 t} t Sodium MG MG 00:00: 10 MG 00 Kenalog Kenalog 2019-0 No 40mg Common (Triamcinol (Triamcinol 7-01 S pirit one) one) 00:00: - [facility] 00 [facility] Montekast Montekast 2019-0 No 1{table QD Montelukas Sodium 10 Sodium 10 7-01 t} t Sodium MG MG 00:00: 10 MG 00 Kenalog Kenalog 2019-0 No 40mg Common (Triamcinol (Triamcinol 7-01 S pirit one) one) 00:00: [facility] No [facility]{table QD Montelukas Sodium 10 Sodium 10 7-01 t} t Sodium MG MG 00:00: 10 MG 00 Kenalog Kenalog 2019-0 No 40mg Common (Triamcinol (Triamcinol 7-01 S pirit one) one) 00:00: - [facility] 00 [facility] 2019-0 No 1{table QD Montelukas Sodium 10 Sodium 10 7-01 t} t Sodium MG MG 00:00: 10 MG 00 Kenalog Kenalog 2019-0 No 40mg Common (Triamcinol (Triamcinol 7-01 S pirit one) one) 00:00: - [facility] 00 [facility] 2019-0 No 1{table QD Montelukas Sodium 10 Sodium 10 7-01 t} t Sodium MG MG 00:00: 10 MG 00 Kenalog Kenalog 2019-0 No 40mg Common (Triamcinol (Triamcinol 7-01 S pirit one) one) 00:00: - [facility] 00 [facility] 2019-0 No 1{table QD Montelukas Sodium 10 Sodium 10 7-01 t} t Sodium MG MG 00:00: 10 MG 00 Kenalog Kenalog 2019-0 No 40mg Common (Triamcinol (Triamcinol 7-01 S pirit one) one) 00:00: - [facility] 00 [facility] 2019-0 No 1{table QD Montelukas Sodium 10 Sodium 10 7-01 t} t Sodium MG MG 00:00: 10 MG 00 Kenalog Kenalog 2019-0 No 40mg Common (Triamcinol (Triamcinol 7-01 S pirit one) one) 00:00: - [facility] 00 [facility] Kenalog Kenalog 2019-0 No 40mg Common (Triamcinol (Triamcinol 7-01 S pirit one) one) 00:00: - [facility] 00 [facility] Kenalog Kenalog 2019-0 No 40mg Common (Triamcinol (Triamcinol 7-01 S pirit one) one) 00:00: - [facility] 00 [facility] Kenalog Kenalog 2019-0 No 40mg Common (Triamcinol (Triamcinol 7-01 S pirit one) one) 00:00: - [facility] 00 [facility] Montelukast Montelukast 2019-0 No 1{table QD Montelukas Sodium 10 Sodium 10 7- t} t Sodium MG MG 00:00: 10 MG 00 Kenalog Kenalog 2019-0 No 40mg Common (Triamcinol (Triamcinol 7-01 S pirit one) one) 00:00: - [facility] 00 [facility] Kenalog Kenalog 2019-0 No 40mg Common (Triamcinol (Triamcinol 7-01 S pirit one) one) 00:00: - [facility] 00 [facility] Kenalog Kenalog 2019-0 No 40mg Common (Triamcinol (Triamcinol 7-01 S pirit one) one) 00:00: - [facility] 00 [facility] Kenalog Kenalog 2019-0 No 40mg Common (Triamcinol (Triamcinol 7-01 S pirit one) one) 00:00: - [facility] 00 [facility] Kenalog Kenalog 2019-0 No 40mg Common (Triamcinol (Triamcinol 7-01 S pirit one) one) 00:00: - [facility] 00 [facility] Kenalog Kenalog 2019-0 No 40mg Common (Triamcinol (Triamcinol 7-01 S pirit one) one) 00:00: - [facility] 00 [facility] Kenalog Kenalog 2019-0 No 40mg Common (Triamcinol (Triamcinol 7-01 S pirit one) one) 00:00: - [facility] 00 [facility] Kenalog Kenalog 2019-0 No 40mg Common (Triamcinol (Triamcinol 7-01 S pirit one) one) 00:00: - [facility] 00 [facility] Montelukast Montelukast 2019-0 No 1{table QD Montelukas Sodium 10 Sodium 10 7- t} t Sodium MG MG 00:00: 10 MG 00 Kenalog Kenalog 2019-0 No 40mg Common (Triamcinol (Triamcinol 7-01 S pirit one) one) 00:00: - [facility] 00 [facility] Kenalog Kenalog 2019-0 No 40mg Common (Triamcinol (Triamcinol 7-01 S pirit one) one) 00:00: - [facility] 00 [facility] Montelukast Montelukast 2019-0 No 1{table QD Montelukas [...] Kenalog 2019-0 No 40mg Common (Triamcinol (Triamcinol 09-01 S pirit one) one) 00:00: - [facility] 00 [facility] [place] Montelukast 2019-0 No 1{table QD Montelukas Sodium 10 Sodium 10 7-01 t} t Sodium MG MG 00:00: 10 MG 00 Kenalog Kenalog 2019-0 No 40mg Common (Triamcinol (Triamcinol 7-01 S pirit one) one) 00:00: - [facility] 00 [facility] [place] Montelukast 2019-0 No 1{table QD Montelukas Sodium 10 Sodium 10 7-01 t} t Sodium MG MG 00:00: 10 MG 00 Kenalog Kenalog 2019-0 No 40mg Common (Triamcinol (Triamcinol 7-01 S pirit one) one) 00:00: - [facility] 00 [facility] [place] Montelukast 2019-0 No 1{table QD Montelukas Sodium 10 Sodium 10 7-01 t} t Sodium MG MG 00:00: 10 MG 00 Kenalog Kenalog 2019-0 No 40mg Common (Triamcinol (Triamcinol 7-01 S pirit one) one) 00:00: - [facility] 00 [facility] [place] Montelukast 2019-0 No 1{table QD Montelukas Sodium 10 Sodium 10 7-01 t} t Sodium MG MG 00:00: 10 MG 00 Kenalog Kenalog 2019-0 No 40mg Common (Triamcinol (Triamcinol 7-01 S pirit one) one) 00:00: - [facility] 00 [facility] [place] Montelukast 2019-0 No 1{table QD Montelukas Sodium 10 Sodium 10 7-01 t} t Sodium MG MG 00:00: 10 MG 00 [place]og Kenalog 2019-0 No 40mg Common (Triamcinol (Triamcinol 7-01 S pirit one) one) 00:00: - [facility] 00 [facility] [place] Montelukast 2019-0 No 1{table QD Montelukas Sodium 10 Sodium 10 7-01 t} t Sodium MG MG 00:00: 10 MG 00 Kenalog Kenalog 2019-0 No 40mg Common (Triamcinol (Triamcinol 7-01 S pirit one) one) 00:00: - [facility] 00 [facility] [place] Montelukast 2019-0 No 1{table QD Montelukas Sodium 10 Sodium 10 7-01 t} t Sodium MG MG 00:00: 10 MG 00 Kenalog Kenalog 2019-0 No 40mg Common (Triamcinol (Triamcinol 7-01 S pirit one) one) 00:00: - [facility] 00 [facility] [place] Montelukast 2019-0 No 1{table QD Montelukas Sodium 10 Sodium 10 7-01 t} t Sodium MG MG 00:00: 10 MG 00 Kenalog Kenalog 2019-0 No 40mg Common (Triamcinol (Triamcinol 7-01 S pirit one) one) 00:00: - [facility] 00 [facility] [place] Montelukast 2019-0 No 1{table QD Montelukas Sodium 10 Sodium 10 7-01 t} t Sodium MG MG 00:00: 10 MG 00 Kenalog Kenalog 2019-0 No 40mg Common (Triamcinol (Triamcinol 7-01 S pirit one) one) 00:00: - [facility] 00 [facility] [place] Montelukast 2019-0 No 1{table QD Montelukas Sodium 10 Sodium 10 7-01 t} t Sodium MG MG 00:00: 10 MG 00 Kenalog Kenalog 2019-0 No 40mg Common (Triamcinol (Triamcinol 7-01 S pirit one) one) 00:00: - [facility] 00 [facility] [place] Montelukast 2019-0 No 1{table QD Montelukas Sodium 10 Sodium 10 7-01 t} t Sodium MG MG 00:00: 10 MG 00 Kenalog Kenalog 2019-0 No 40mg Common (Triamcinol (Triamcinol 7-01 S pirit one) one) 00:00: - [facility] 00 [facility] [place] Montelukast 2019-0 No 1{table QD Montelukas Sodium 10 Sodium 10 7-01 t} t Sodium MG MG 00:00: 10 MG 00 Kenalog Kenalog 2019-0 No 40mg Common (Triamcinol (Triamcinol 7-01 S pirit one) one) 00:00: - [facility] Montelukast Montelukast 2019-0 No 1{table QD Montelukas Sodium 10 Sodium 10 7-01 t} t Sodium MG MG 00:00: 10 MG 00 Kenalog Kenalog 2019-0 No 40mg Common (Triamcinol (Triamcinol 7-01 S pirit one) one) 00:00: - [facility] 00 [facility] Montelukast Montelukast 2019-0 No 1{table QD Montelukas Sodium 10 Sodium 10 7-01 t} t Sodium MG MG 00:00: 10 MG 00 Kenalog Kenalog 2019-0 No 40mg Common (Triamcinol (Triamcinol 7-01 S pirit one) one) 00:00: - [facility] 00 [facility] Montelukast Montelukast 2019-0 No 1{table QD Montelukas Sodium 10 Sodium 10 7-01 t} t Sodium MG MG 00:00: 10 MG 00 Kenalog Kenalog 2019-0 No 40mg Common (Triamcinol (Triamcinol 7-01 S pirit one) one) 00:00: - [facility] 00 [facility] Montelukast Montelukast 2019-0 No 1{table QD Montelukas Sodium 10 Sodium 10 7-01 t} t Sodium MG MG 00:00: 10 MG 00 [place]og Kenalog 2019-0 No 40mg Common (Triamcinol (Triamcinol 7-01 S pirit one) one) 00:00: - [facility] 00 [facility] Montelukast Montelukast 2019-0 No 1{table QD Montelukas Sodium 10 Sodium 10 7-01 t} t Sodium MG MG 00:00: 10 MG 00 [place]og Kenalog 2019-0 No 40mg Common (Triamcinol (Triamcinol 7-01 S pirit one) one) 00:00: - [facility] 00 [facility] Kenalog Kenalog 2019-0 No 40mg Common (Triamcinol (Triamcinol 4-02 S pirit one) one) 00:00: - [facility] 00 [facility] Kenalog Kenalog 2019-0 No 40mg Common (Triamcinol (Triamcinol 4-02 S pirit one) one) 00:00: - [facility] 00 [facility] Kenalog Kenalog 2019-0 No 40mg Common (Triamcinol (Triamcinol 4-02 S pirit one) one) 00:00: - [facility] 00 [facility] Kenalog Kenalog 2019-0 No 40mg Common (Triamcinol (Triamcinol 4-02 S pirit one) one) 00:00: - [facility] 00 [facility] Kenalog Kenalog 2019-0 No 40mg Common (Triamcinol (Triamcinol 4-02 S pirit one) one) 00:00: - [facility] 00 [facility] Kenalog Kenalog 2019-0 No 40mg Common (Triamcinol (Triamcinol 4-02 S pirit one) one) 00:00: - [facility] 00 [facility] Kenalog Kenalog 2019-0 No 40mg Common (Triamcinol (Triamcinol 4-02 S pirit one) one) 00:00: - [facility] 00 [facility] Kenalog Kenalog 2019-0 No 40mg Common (Triamcinol (Triamcinol 4-02 S pirit one) one) 00:00: - [facility] 00 [facility] Kenalog Kenalog 2019-0 No 40mg Common (Triamcinol (Triamcinol 4-02 S pirit one) one) 00:00: - [facility] 00 [facility] Kenalog Kenalog 2019-0 No 40mg Common (Triamcinol (Triamcinol 4-02 S pirit one) one) 00:00: - [facility] 00 [facility] Kenalog Kenalog 2019-0 No 40mg Common (Triamcinol (Triamcinol 4-02 S pirit one) one) 00:00: - [facility] 00 [facility] Kenalog Kenalog 2019-0 No 40mg Common (Triamcinol (Triamcinol 4-02 S pirit one) one) 00:00: - [facility] 00 [facility] Kenalog Kenalog 2019-0 No 40mg Common (Triamcinol (Triamcinol 4-02 S pirit one) one) 00:00: - [facility] 00 [facility] Kenalog Kenalog 2019-0 No 40mg Common (Triamcinol (Triamcinol 4-02 S pirit one) one) 00:00: - [facility] 00 [facility] Kenalog Kenalog 2019-0 No 40mg Common (Triamcinol (Triamcinol 4-02 S pirit one) one) 00:00: - [facility] 00 [facility] Kenalog Kenalog 2019-0 No 40mg Common (Triamcinol (Triamcinol 4-02 S pirit one) one) 00:00: - [facility] 00 [facility] Kenalog Kenalog 2019-0 No 40mg Common (Triamcinol (Triamcinol 4-02 S pirit one) one) 00:00: - [facility] 00 [facility] Kenalog Kenalog 2019-0 No 40mg Common (Triamcinol (Triamcinol 4-02 S pirit one) one) 00:00: - [facility] 00 [facility] Kenalog Kenalog 2019-0 No 40mg Common (Triamcinol (Triamcinol 4-02 S pirit one) one) 00:00: - [facility] 00 [facility] Kenalog Kenalog 2019-0 No 40mg Common (Triamcinol (Triamcinol 4-02 S pirit one) one) 00:00: - [facility] 00 [facility] Kenalog Kenalog 2019-0 No 40mg Common (Triamcinol (Triamcinol 4-02 S pirit one) one) 00:00: - [facility] 00 [facility] Kenalog Kenalog 2019-0 No 40mg Common (Triamcinol (Triamcinol 4-02 S pirit one) one) 00:00: - [facility] 00 [facility] Kenalog Kenalog 2019-0 No 40mg Common (Triamcinol (Triamcinol 4-02 S pirit one) one) 00:00: - [facility] 00 [facility] Kenalog Kenalog 2019-0 No 40mg Common (Triamcinol (Triamcinol 4-02 S pirit one) one) 00:00: - [facility] 00 [facility] Kenalog Kenalog 2019-0 No 40mg Common (Triamcinol (Triamcinol 4-02 S pirit one) one) 00:00: - [facility] 00 [facility] Kenalog Kenalog 2019-0 No 40mg Common (Triamcinol (Triamcinol 4-02 S pirit one) one) 00:00: - [facility] 00 [facility] Kenalog Kenalog 2019-0 No 40mg Common (Triamcinol (Triamcinol 4-02 S pirit one) one) 00:00: - [facility] 00 [facility] Kenalog Kenalog 2019-0 No 40mg Common (Triamcinol (Triamcinol 4-02 S pirit one) one) 00:00: - [facility] 00 [facility] Kenalog Kenalog 2019-0 No 40mg Common (Triamcinol (Triamcinol 4-02 S pirit one) one) 00:00: - [facility] 00 [facility] Kenalog Kenalog 2019-0 No 40mg Common (Triamcinol (Triamcinol 4-02 S pirit one) one) 00:00: - [facility] 00 [facility] Kenalog Kenalog 2019-0 No 40mg Common (Triamcinol (Triamcinol 4-02 S pirit one) one) 00:00: - [facility] 00 [facility] Kenalog Kenalog 2019-0 No 40mg Common (Triamcinol (Triamcinol 4-02 S pirit one) one) 00:00: - [facility] 00 [facility] Kenalog Kenalog 2019-0 No 40mg Common (Triamcinol (Triamcinol 4-02 S pirit one) one) 00:00: - [facility] 00 [facility] Kenalog Kenalog 2019-0 No 40mg Common (Triamcinol (Triamcinol 4-02 S pirit one) one) 00:00: - [facility] 00 [facility] Kenalog Kenalog 2019-0 No 40mg Common (Triamcinol (Triamcinol 4-02 S pirit one) one) 00:00: - [facility] 00 [facility] Kenalog Kenalog 2019-0 No 40mg Common (Triamcinol (Triamcinol 4-02 S pirit one) one) 00:00: - [facility] 00 [facility] Kenalog Kenalog 2019-0 No 40mg Common (Triamcinol (Triamcinol 4-02 S pirit one) one) 00:00: - [facility] 00 [facility] Alayna Catalan 2019-0 No 40mg Common (Triamcinol (Triamcinol 4-02 S pirit one) one) 00:00: - [facility] 00 [facility] Alayna Catalan 2019-0 No 40mg Common (Triamcinol (Triamcinol 4-02 S pirit one) one) 00:00: - [facility] 00 [facility] Alayna Catalan 2019-0 No 40mg Common (Triamcinol (Triamcinol 4-02 S pirit one) one) 00:00: - [facility] 00 [facility] Alayna Catalan 2018-0 No 40mg Common (Triamcinol (Triamcinol 4-02 S pirit one) one) 00:00: - [facility] 00 [facility] Alayna Catalan 2018-0 No 40mg Common (Triamcinol (Triamcinol 4-02 S pirit one) one) 00:00: - [facility] 00 [facility] Ipratropium Ipratropium No Ipratropiu Morgan Morgan m Morgan 0.02 % 0.02 % 0.02 % Levothyroxi [...] % 0.1 % Ipratropium Ipratropium No Ipratropiu Morgan Morgan m Morgan 0.02 % 0.02 % 0.02 % HYDROcodone [...] % 0.1 % Ipratropium Ipratropium No Ipratropiu Morgan Morgan m Morgan 0.02 % 0.02 % 0.02 % Flonase [...] % 0.1 % Ipratropium Ipratropium No Ipratropiu Morgan Morgan m Morgan 0.02 % 0.02 % 0.02 % guaiFENesin [...] t} 500-125 MG Ipratropium Ipratropium No Ipratropiu Morgan Morgan m Morgan 0.02 % 0.02 % 0.02 % Albuterol [...] t} 20 MG Ipratropium Ipratropium No Ipratropiu Morgan Morgan m Morgan 0.02 % 0.02 % 0.02 % guaiFENesin [...] t} 20 MG Ipratropium Ipratropium No Ipratropiu Morgan Morgan m Morgan 0.02 % 0.02 % 0.02 % guaiFENesin [...] t} 20 MG Ipratropium Ipratropium No Ipratropiu Morgan Morgan m Morgan 0.02 % 0.02 % 0.02 % guaiFENesin [...] t} 20 MG Ipratropium Ipratropium No Ipratropiu Morgan Morgan m Morgan 0.02 % 0.02 % 0.02 % guaiFENesin [...] t} 20 MG Ipratropium Ipratropium No Ipratropiu Morgan Morgan m Morgan 0.02 % 0.02 % 0.02 % guaiFENesin [...] t} 500-125 MG Ipratropium Ipratropium No Ipratropiu Morgan Morgan m Morgan 0.02 % 0.02 % 0.02 % valACYclovi [...] t} 500-125 MG Ipratropium Ipratropium No Ipratropiu Morgan Morgan m Morgan 0.02 % 0.02 % 0.02 % valACYclovi [...] t} 500-125 MG Ipratropium Ipratropium No Ipratropiu Morgan Morgan m Morgan 0.02 % 0.02 % 0.02 % valACYclovi [...] MG 10 MG Ipratropium Ipratropium No Ipratropiu Morgan Morgan m Morgan 0.02 % 0.02 % 0.02 % Lisinopril [...] 50 MCG/ACT MCG/ACT _in_eac MCG/ACT h_nostr il} Cetirizine Cetirizine No 1{table Cetirizine HCl 10 MG HCl 10 MG t} HCl 10 MG Albuterol Albuterol No 3{ml_as Albuterol Sulfate Sulfate _needed Sulfate (2.5 (2.5 } (2.5 MG/3ML) MG/3ML) MG/3ML) 0.083% 0.083% 0.083% guaiFENesin guaiFENesin No 5{ml} QID guaiFENesi -Codeine -Codeine n-Codeine 100-10 100-10 100-10 MG/5ML MG/5ML MG/5ML Ipratropium Ipratropium No 3{ml_as QID Ipratropiu -Albuterol -Albuterol _needed m-Albutero 0.5-2.5 (3) 0.5-2.5 (3) } l 0.5-2.5 MG/3ML MG/3ML (3) MG/3ML Ipratropium Ipratropium No Ipratropiu Morgan Morgan m Morgan 0.02 % 0.02 % 0.02 % valACYclovi valACYclovi No 1{table BID valACYclov r HCl 1 GM r HCl 1 GM t} ir HCl 1 GM Flonase 50 Flonase 50 No 2{spray QD Flonase 50 MCG/ACT MCG/ACT _in_eac MCG/ACT h_nostr il} Omeprazole Omeprazole No 1{capsu QD Omeprazole 40 MG 40 MG le} 40 MG Augmentin Augmentin No 1{table BID Augmentin 500-125 MG 500-125 MG t} 500-125 MG traZODone traZODone No QD traZODone HCl 100 MG HCl 100 MG HCl 100 MG Levothyroxi Levothyroxi No Levothyrox ne Sodium ne Sodium ine Sodium 50 MCG 50 MCG 50 MCG Augmentin Augmentin No 1{table BID Augmentin 500-125 MG 500-125 MG t} 500-125 MG Montelukast Montelukast No 1{table QD Montelukas Sodium 10 Sodium 10 t} t Sodium MG MG 10 MG HYDROcodone HYDROcodone No 1{table QID HYDROcodon -Acetaminop -Acetaminop t_as_ne e-Acetamin hen 10-325 hen 10-325 eded} ophen MG MG 10-325 MG Lisinopril Lisinopril No Lisinopril 20 MG 20 MG 20 MG predniSONE predniSONE No QD predniSONE 10 MG 10 MG 10 MG Cheratussin Cheratussin No 5{ml} Cheratussi AC 100-10 AC 100-10 n AC MG/5ML MG/5ML 100-10 MG/5ML Atorvastati Atorvastati No 1{table QD Atorvastat n Calcium n Calcium t_at_be in Calcium 40 MG 40 MG dtime} 40 MG Omeprazole Omeprazole No 1{capsu QD Omeprazole 40 MG 40 MG le} 40 MG Gabapentin Gabapentin No 2{capsu TID Gabapentin 300 MG 300 MG le} 300 MG Lidocaine 5 Lidocaine 5 No 1{appli TID Lidocaine % % cation_ 5 % to_affe cted_ar ea_as_n eeded} Azithromyci Azithromyci No QD Azithromyc n 250 MG n 250 MG in 250 MG Potassium Potassium No Potassium Chloride ER Chloride ER Chloride 10 MEQ 10 MEQ ER 10 MEQ HYDROcodone HYDROcodone No 1{table QID HYDROcodon -Acetaminop -Acetaminop t_as_ne e-Acetamin hen 10-325 hen 10-325 eded} ophen MG MG 10-325 MG Triamcinolo Triamcinolo No BID Triamcinol ne ne one Acetonide Acetonide Acetonide 0.1 % 0.1 % 0.1 % predniSONE predniSONE No QD predniSONE 10 MG 10 MG 10 MG Famotidine Famotidine No 1{table BID Famotidine 20 MG 20 MG t} 20 MG Albuterol Albuterol No 3{ml_as Albuterol Sulfate Sulfate _needed Sulfate (2.5 (2.5 } (2.5 MG/3ML) MG/3ML) MG/3ML) 0.083% 0.083% 0.083% Cetirizine Cetirizine No 1{table Cetirizine HCl 10 MG HCl 10 MG t} HCl 10 MG Albuterol Albuterol No 3{ml_as Albuterol Sulfate Sulfate _needed Sulfate (2.5 (2.5 } (2.5 MG/3ML) MG/3ML) MG/3ML) 0.083% 0.083% 0.083% guaiFENesin guaiFENesin No 5{ml} QID guaiFENesi -Codeine -Codeine n-Codeine 100-10 100-10 100-10 MG/5ML MG/5ML MG/5ML Ipratropium Ipratropium No 3{ml_as QID Ipratropiu -Albuterol -Albuterol _needed m-Albutero 0.5-2.5 (3) 0.5-2.5 (3) } l 0.5-2.5 MG/3ML MG/3ML (3) MG/3ML Ipratropium Ipratropium No Ipratropiu Morgan Morgan m Morgan 0.02 % 0.02 % 0.02 % valACYclovi valACYclovi No 1{table BID valACYclov r HCl 1 GM r HCl 1 GM t} ir HCl 1 GM Flonase 50 Flonase 50 No 2{spray QD Flonase 50 MCG/ACT MCG/ACT _in_eac MCG/ACT h_nostr il} Levothyroxi Levothyroxi No Levothyrox ne Sodium ne Sodium ine Sodium 50 MCG 50 MCG 50 MCG Augmentin Augmentin No 1{table BID Augmentin 500-125 MG 500-125 MG t} 500-125 MG traZODone traZODone No QD traZODone HCl 100 MG HCl 100 MG HCl 100 MG Levothyroxi Levothyroxi No Levothyrox ne Sodium ne Sodium ine Sodium 50 MCG 50 MCG 50 MCG Augmentin Augmentin No 1{table BID Augmentin 500-125 MG 500-125 MG t} 500-125 MG Montelukast Montelukast No 1{table QD Montelukas Sodium 10 Sodium 10 t} t Sodium MG MG 10 MG HYDROcodone HYDROcodone No 1{table QID HYDROcodon -Acetaminop -Acetaminop t_as_ne e-Acetamin hen 10-325 hen 10-325 eded} ophen MG MG 10-325 MG Lisinopril Lisinopril No Lisinopril 20 MG 20 MG 20 MG predniSONE predniSONE No QD predniSONE 10 MG 10 MG 10 MG Cheratussin Cheratussin No 5{ml} Cheratussi AC 100-10 AC 100-10 n AC MG/5ML MG/5ML 100-10 MG/5ML Lisinopril Lisinopril No Lisinopril 20 MG 20 MG 20 MG Atorvastati Atorvastati No 1{table QD Atorvastat n Calcium n Calcium t_at_be in Calcium 40 MG 40 MG dtime} 40 MG Omeprazole Omeprazole No 1{capsu QD Omeprazole 40 MG 40 MG le} 40 MG Gabapentin Gabapentin No 2{capsu TID Gabapentin 300 MG 300 MG le} 300 MG Lidocaine 5 Lidocaine 5 No 1{appli TID Lidocaine % % cation_ 5 % to_affe cted_ar ea_as_n eeded} Azithromyci Azithromyci No QD Azithromyc n 250 MG n 250 MG in 250 MG Potassium Potassium No Potassium Chloride ER Chloride ER Chloride 10 MEQ 10 MEQ ER 10 MEQ Triamcinolo Triamcinolo No BID Triamcinol ne ne one Acetonide Acetonide Acetonide 0.1 % 0.1 % 0.1 % predniSONE predniSONE No QD predniSONE 10 MG 10 MG 10 MG Famotidine Famotidine No 1{table BID Famotidine 20 MG 20 MG t} 20 MG Cetirizine Cetirizine No 1{table Cetirizine HCl 10 MG HCl 10 MG t} HCl 10 MG Gabapentin Gabapentin No 2{capsu TID Gabapentin [...] } l 0.5-2.5 MG/3ML MG/3ML (3) MG/3ML Ipratropium Ipratropium No Ipratropiu Morgan Morgan m Morgan 0.02 % 0.02 % 0.02 % valACYclovi valACYclovi No 1{table BID valACYclov r HCl 1 GM r HCl 1 GM t} ir HCl 1 GM Flonase 50 Flonase 50 No 2{spray QD Flonase 50 MCG/ACT MCG/ACT _in_eac MCG/ACT h_nostr il} Augmentin Augmentin No 1{table BID Augmentin 500-125 MG 500-125 MG t} 500-125 MG traZODone traZODone No QD traZODone HCl 100 MG HCl 100 MG HCl 100 MG Levothyroxi Levothyroxi No Levothyrox ne Sodium ne Sodium ine Sodium 50 MCG 50 MCG 50 MCG Augmentin Augmentin No 1{table BID Augmentin 500-125 MG 500-125 MG t} 500-125 MG Montelukast Montelukast No 1{table QD Montelukas Sodium 10 Sodium 10 t} t Sodium MG MG 10 MG HYDROcodone HYDROcodone No 1{table QID HYDROcodon -Acetaminop -Acetaminop t_as_ne e-Acetamin hen 10-325 hen 10-325 eded} ophen MG MG 10-325 MG Lisinopril Lisinopril No Lisinopril 20 MG 20 MG 20 MG predniSONE predniSONE No QD predniSONE 10 MG 10 MG 10 MG Cheratussin Cheratussin No 5{ml} Cheratussi AC 100-10 AC 100-10 n AC MG/5ML MG/5ML 100-10 MG/5ML Atorvastati Atorvastati No 1{table QD Atorvastat n Calcium n Calcium t_at_be in Calcium 40 MG 40 MG dtime} 40 MG Omeprazole Omeprazole No 1{capsu QD Omeprazole 40 MG 40 MG le} 40 MG Augmentin Augmentin No 1{table BID Augmentin 500-125 MG 500-125 MG t} 500-125 MG Gabapentin Gabapentin No 2{capsu TID Gabapentin 300 MG 300 MG le} 300 MG Lidocaine 5 Lidocaine 5 No 1{appli TID Lidocaine % % cation_ 5 % to_affe cted_ar ea_as_n eeded} Azithromyci Azithromyci No QD Azithromyc n 250 MG n 250 MG in 250 MG Potassium Potassium No Potassium Chloride ER Chloride ER Chloride 10 MEQ 10 MEQ ER 10 MEQ Triamcinolo Triamcinolo No BID Triamcinol ne ne one Acetonide Acetonide Acetonide 0.1 % 0.1 % 0.1 % predniSONE predniSONE No QD predniSONE 10 MG 10 MG 10 MG Potassium Potassium No Potassium Chloride ER Chloride ER Chloride 10 MEQ 10 MEQ ER 10 MEQ Famotidine Famotidine No 1{table BID Famotidine 20 MG 20 MG t} 20 MG Cetirizine Cetirizine No 1{table Cetirizine HCl 10 MG HCl 10 MG t} HCl 10 MG guaiFENesin guaiFENesin No 5{ml} QID guaiFENesi -Codeine -Codeine n-Codeine 100-10 100-10 100-10 MG/5ML MG/5ML MG/5ML Ipratropium Ipratropium No 3{ml_as QID Ipratropiu -Albuterol -Albuterol _needed m-Albutero 0.5-2.5 (3) 0.5-2.5 (3) } l 0.5-2.5 MG/3ML MG/3ML (3) MG/3ML predniSONE predniSONE No QD predniSONE 10 MG 10 MG 10 MG Albuterol Albuterol No 3{ml_as Albuterol Sulfate Sulfate _needed Sulfate (2.5 (2.5 } (2.5 MG/3ML) MG/3ML) MG/3ML) 0.083% 0.083% 0.083% valACYclovi valACYclovi No 1{table BID valACYclov r HCl 1 GM r HCl 1 GM t} ir HCl 1 GM Flonase 50 Flonase 50 No 2{spray QD Flonase 50 MCG/ACT MCG/ACT _in_eac MCG/ACT h_nostr il} Augmentin Augmentin No 1{table BID Augmentin 500-125 MG 500-125 MG t} 500-125 MG Augmentin Augmentin No 1{table BID Augmentin 500-125 MG 500-125 MG t} 500-125 MG Montelukast Montelukast No 1{table QD Montelukas Sodium 10 Sodium 10 t} t Sodium MG MG 10 MG Levothyroxi Levothyroxi No Levothyrox ne Sodium ne Sodium ine Sodium 50 MCG 50 MCG 50 MCG traZODone traZODone No QD traZODone HCl 100 MG HCl 100 MG HCl 100 MG Atorvastati Atorvastati No Atorvastat n Calcium n Calcium in Calcium 40 MG 40 MG 40 MG HYDROcodone HYDROcodone No 1{table QID HYDROcodon -Acetaminop -Acetaminop t_as_ne e-Acetamin hen 10-325 hen 10-325 eded} ophen MG MG 10-325 MG Lisinopril Lisinopril No Lisinopril 20 MG 20 MG 20 MG predniSONE predniSONE No QD predniSONE 10 MG 10 MG 10 MG Cheratussin Cheratussin No 5{ml} Cheratussi AC 100-10 AC 100-10 n AC MG/5ML MG/5ML 100-10 MG/5ML Gabapentin Gabapentin No 2{capsu TID Gabapentin 300 MG 300 MG le} 300 MG Omeprazole Omeprazole No 1{capsu QD Omeprazole 40 MG 40 MG le} 40 MG Ipratropium Ipratropium No Ipratropiu Morgan Morgan m Morgan 0.02 % 0.02 % 0.02 % Cetirizine Cetirizine No 1{table Cetirizine HCl 10 MG HCl 10 MG t} HCl 10 MG Lidocaine 5 Lidocaine 5 No 1{appli TID Lidocaine % % cation_ 5 % to_affe cted_ar ea_as_n eeded} Azithromyci Azithromyci No QD Azithromyc n 250 MG n 250 MG in 250 MG Potassium Potassium No Potassium Chloride ER Chloride ER Chloride 10 MEQ 10 MEQ ER 10 MEQ Triamcinolo Triamcinolo No BID Triamcinol ne ne one Acetonide Acetonide Acetonide 0.1 % 0.1 % 0.1 % predniSONE predniSONE No QD predniSONE 10 MG 10 MG 10 MG Famotidine Famotidine No 1{table BID Famotidine 20 MG 20 MG t} 20 MG Cetirizine Cetirizine No 1{table Cetirizine HCl 10 MG HCl 10 MG t} HCl 10 MG guaiFENesin guaiFENesin No 5{ml} QID guaiFENesi -Codeine -Codeine n-Codeine 100-10 100-10 100-10 MG/5ML MG/5ML MG/5ML Ipratropium Ipratropium No 3{ml_as QID Ipratropiu -Albuterol -Albuterol _needed m-Albutero 0.5-2.5 (3) 0.5-2.5 (3) } l 0.5-2.5 MG/3ML MG/3ML (3) MG/3ML valACYclovi valACYclovi No 1{table BID valACYclov r HCl 1 GM r HCl 1 GM t} ir HCl 1 GM Albuterol Albuterol No 3{ml_as Albuterol Sulfate Sulfate _needed Sulfate (2.5 (2.5 } (2.5 MG/3ML) MG/3ML) MG/3ML) 0.083% 0.083% 0.083% valACYclovi valACYclovi No 1{table BID valACYclov r HCl 1 GM r HCl 1 GM t} ir HCl 1 GM Flonase 50 Flonase 50 No 2{spray QD Flonase 50 MCG/ACT MCG/ACT _in_eac MCG/ACT h_nostr il} Augmentin Augmentin No 1{table BID Augmentin 500-125 MG 500-125 MG t} 500-125 MG Augmentin Augmentin No 1{table BID Augmentin 500-125 MG 500-125 MG t} 500-125 MG Montelukast Montelukast No 1{table QD Montelukas Sodium 10 Sodium 10 t} t Sodium MG MG 10 MG Levothyroxi Levothyroxi No Levothyrox ne Sodium ne Sodium ine Sodium 50 MCG 50 MCG 50 MCG traZODone traZODone No QD traZODone HCl 100 MG HCl 100 MG HCl 100 MG traZODone traZODone No QD traZODone HCl 100 MG HCl 100 MG HCl 100 MG Atorvastati Atorvastati No 1{table QD Atorvastat n Calcium n Calcium t_at_be in Calcium 40 MG 40 MG dtime} 40 MG HYDROcodone HYDROcodone No 1{table QID HYDROcodon -Acetaminop -Acetaminop t_as_ne e-Acetamin hen 10-325 hen 10-325 eded} ophen MG MG 10-325 MG Lisinopril Lisinopril No Lisinopril 20 MG 20 MG 20 MG predniSONE predniSONE No QD predniSONE 10 MG 10 MG 10 MG Cheratussin Cheratussin No 5{ml} Cheratussi AC 100-10 AC 100-10 n AC MG/5ML MG/5ML 100-10 MG/5ML Gabapentin Gabapentin No 2{capsu TID Gabapentin 300 MG 300 MG le} 300 MG Omeprazole Omeprazole No 1{capsu QD Omeprazole 40 MG 40 MG le} 40 MG Ipratropium Ipratropium No Ipratropiu Morgan Morgan m Morgan 0.02 % 0.02 % 0.02 % Famotidine Famotidine No 1{table BID Famotidine 20 MG 20 MG t} 20 MG Lidocaine 5 Lidocaine 5 No 1{appli TID Lidocaine % % cation_ 5 % to_affe cted_ar ea_as_n eeded} Azithromyci Azithromyci No QD Azithromyc n 250 MG n 250 MG in 250 MG Potassium Potassium No Potassium Chloride ER Chloride ER Chloride 10 MEQ 10 MEQ ER 10 MEQ Triamcinolo Triamcinolo No BID Triamcinol ne ne one Acetonide Acetonide Acetonide 0.1 % 0.1 % 0.1 % predniSONE predniSONE No QD predniSONE 10 MG 10 MG 10 MG Famotidine Famotidine No 1{table BID Famotidine 20 MG 20 MG t} 20 MG Ipratropium Ipratropium No Ipratropiu Morgan Morgan m Morgan 0.02 % 0.02 % 0.02 % Cetirizine Cetirizine No 1{table Cetirizine HCl 10 MG HCl 10 MG t} HCl 10 MG guaiFENesin guaiFENesin No 5{ml} QID guaiFENesi -Codeine -Codeine n-Codeine 100-10 100-10 100-10 MG/5ML MG/5ML MG/5ML Ipratropium Ipratropium No 3{ml_as QID Ipratropiu -Albuterol -Albuterol _needed m-Albutero 0.5-2.5 (3) 0.5-2.5 (3) } l 0.5-2.5 MG/3ML MG/3ML (3) MG/3ML Albuterol Albuterol No 3{ml_as Albuterol Sulfate Sulfate _needed Sulfate (2.5 (2.5 } (2.5 MG/3ML) MG/3ML) MG/3ML) 0.083% 0.083% 0.083% valACYclovi valACYclovi No 1{table BID valACYclov r HCl 1 GM r HCl 1 GM t} ir HCl 1 GM Flonase 50 Flonase 50 No 2{spray QD Flonase 50 MCG/ACT MCG/ACT _in_eac MCG/ACT h_nostr il} Augmentin Augmentin No 1{table BID Augmentin 500-125 MG 500-125 MG t} 500-125 MG Augmentin Augmentin No 1{table BID Augmentin 500-125 MG 500-125 MG t} 500-125 MG Montelukast Montelukast No 1{table QD Montelukas Sodium 10 Sodium 10 t} t Sodium MG MG 10 MG Levothyroxi Levothyroxi No Levothyrox ne Sodium ne Sodium ine Sodium 50 MCG 50 MCG 50 MCG traZODone traZODone No QD traZODone HCl 100 MG HCl 100 MG HCl 100 MG Atorvastati Atorvastati No 1{table QD Atorvastat n Calcium n Calcium t_at_be in Calcium 40 MG 40 MG dtime} 40 MG HYDROcodone HYDROcodone No 1{table QID HYDROcodon -Acetaminop -Acetaminop t_as_ne e-Acetamin hen 10-325 hen 10-325 eded} ophen MG MG 10-325 MG Lisinopril Lisinopril No Lisinopril 20 MG 20 MG 20 MG predniSONE predniSONE No QD predniSONE 10 MG 10 MG 10 MG Cheratussin Cheratussin No 5{ml} Cheratussi AC 100-10 AC 100-10 n AC MG/5ML MG/5ML 100-10 MG/5ML Gabapentin Gabapentin No 2{capsu TID Gabapentin 300 MG 300 MG le} 300 MG Omeprazole Omeprazole No 1{capsu QD Omeprazole 40 MG 40 MG le} 40 MG Ipratropium Ipratropium No Ipratropiu Morgan Morgan m Morgan 0.02 % 0.02 % 0.02 % Lidocaine 5 Lidocaine 5 No 1{appli TID Lidocaine % % cation_ 5 % to_affe cted_ar ea_as_n eeded} Azithromyci Azithromyci No QD Azithromyc n 250 MG n 250 MG in 250 MG Potassium Potassium No Potassium Chloride ER Chloride ER Chloride 10 MEQ 10 MEQ ER 10 MEQ guaiFENesin guaiFENesin No 5{ml} QID guaiFENesi -Codeine -Codeine n-Codeine 100-10 100-10 100-10 MG/5ML MG/5ML MG/5ML Triamcinolo Triamcinolo No BID Triamcinol ne ne one Acetonide Acetonide Acetonide 0.1 % 0.1 % 0.1 % predniSONE predniSONE No QD predniSONE 10 MG 10 MG 10 MG Famotidine Famotidine No 1{table BID Famotidine 20 MG 20 MG t} 20 MG Ipratropium Ipratropium No 3{ml_as QID Ipratropiu [...] t} 20 MG Ipratropium Ipratropium No Ipratropiu Morgan Morgan m Morgan 0.02 % 0.02 % 0.02 % guaiFENesin [...] t} 500-125 MG Ipratropium Ipratropium No Ipratropiu Morgan Morgan m Morgan 0.02 % 0.02 % 0.02 % valACYclovi [...] MCG/ACT MCG/ACT MCG/ACT Ipratropium Ipratropium No Ipratropiu Morgan Morgan m Morgan 0.02 % 0.02 % 0.02 % Lisinopril [...] ER 10 MEQ Ipratropium Ipratropium No Ipratropiu Morgan Morgan m Morgan 0.02 % 0.02 % 0.02 % Levothyroxi [...] ER 10 MEQ Ipratropium Ipratropium No Ipratropiu Morgan Morgan m Morgan 0.02 % 0.02 % 0.02 % Levothyroxi [...] ER 10 MEQ Ipratropium Ipratropium No Ipratropiu Morgan Morgan m Morgan 0.02 % 0.02 % 0.02 % Levothyroxi [...] MG 10-325 MG Ipratropium Ipratropium No Ipratropiu Morgan Morgan m Morgan 0.02 % 0.02 % 0.02 % Levothyroxi [...] 10-325 eded} MG MG Ipratropium Ipratropium No Morgan Morgan 0.02 % 0.02 % Levothyroxi Levothyroxi No [...] MG 10-325 MG Ipratropium Ipratropium No Ipratropiu Morgan Morgan m Morgan 0.02 % 0.02 % 0.02 % Levothyroxi [...] 10-325 eded} MG MG Ipratropium Ipratropium No Morgan Morgan 0.02 % 0.02 % Levothyroxi Levothyroxi No [...] MG 10-325 MG Ipratropium Ipratropium No Ipratropiu Morgan Morgan m Morgan 0.02 % 0.02 % 0.02 % Levothyroxi [...] MG 10-325 MG Ipratropium Ipratropium No Ipratropiu Morgan Morgan m Morgan 0.02 % 0.02 % 0.02 % Levothyroxi [...] MG 10-325 MG Ipratropium Ipratropium No Ipratropiu Morgan Morgan m Morgan 0.02 % 0.02 % 0.02 % Levothyroxi [...] MG 10-325 MG Ipratropium Ipratropium No Ipratropiu Morgan Morgan m Morgan 0.02 % 0.02 % 0.02 % Levothyroxi [...] MG 10-325 MG Ipratropium Ipratropium No Ipratropiu Morgan Morgan m Morgan 0.02 % 0.02 % 0.02 % Levothyroxi [...] MG 10-325 MG Ipratropium Ipratropium No Ipratropiu Morgan Morgan m Morgan 0.02 % 0.02 % 0.02 % Levothyroxi [...] MG 40 MG Ipratropium Ipratropium No Ipratropiu Morgan Morgan m Morgan 0.02 % 0.02 % 0.02 % HYDROcodone [...] MG 40 MG Ipratropium Ipratropium No Ipratropiu Morgan Morgan m Morgan 0.02 % 0.02 % 0.02 % HYDROcodone [...] MG 40 MG Ipratropium Ipratropium No Ipratropiu Morgan Morgan m Morgan 0.02 % 0.02 % 0.02 % HYDROcodone [...] MG 40 MG Ipratropium Ipratropium No Ipratropiu Morgan Morgan m Morgan 0.02 % 0.02 % 0.02 % Gabapentin [...] ER 10 MEQ Ipratropium Ipratropium No Ipratropiu Morgan Morgan m Morgan 0.02 % 0.02 % 0.02 % HYDROcodone [...] ER 10 MEQ Ipratropium Ipratropium No Ipratropiu Morgan Morgan m Morgan 0.02 % 0.02 % 0.02 % HYDROcodone [...] MCG 50 MCG Ipratropium Ipratropium No Ipratropiu Morgan Morgan m Morgan 0.02 % 0.02 % 0.02 % traZODone [...] MCG/ACT MCG/ACT MCG/ACT Ipratropium Ipratropium No Ipratropiu Morgan Morgan m Morgan 0.02 % 0.02 % 0.02 % Atorvastati [...] MCG/ACT MCG/ACT MCG/ACT Ipratropium Ipratropium No Ipratropiu Morgan Morgan m Morgan 0.02 % 0.02 % 0.02 % Atorvastati [...] MCG/ACT MCG/ACT MCG/ACT Ipratropium Ipratropium No Ipratropiu Morgan Morgan m Morgan 0.02 % 0.02 % 0.02 % Atorvastati [...] MCG/ACT MCG/ACT MCG/ACT Ipratropium Ipratropium No Ipratropiu Morgan Morgan m Morgan 0.02 % 0.02 % 0.02 % Atorvastati [...] le} 40 MG Ipratropium Ipratropium No Ipratropiu Morgan Morgan m Morgan 0.02 % 0.02 % 0.02 % Atorvastati [...] le} 300 MG Ipratropium Ipratropium No Ipratropiu Morgan Morgan m Morgan 0.02 % 0.02 % 0.02 % traZODone [...] MG 40 MG Ipratropium Ipratropium No Ipratropiu Morgan Morgan m Morgan 0.02 % 0.02 % 0.02 % Ventolin [...] MG 40 MG Ipratropium Ipratropium No Ipratropiu Morgan Morgan m Morgan 0.02 % 0.02 % 0.02 % Ventolin [...] MCG 50 MCG Ipratropium Ipratropium No Ipratropiu Morgan Morgan m Morgan 0.02 % 0.02 % 0.02 % Ventolin [...] Acetonide 0.1 % 0.1 % 0.1 % Vital Signs Vital Name Observation Time Observation Value Comments Source height 2021-09-12 16:20:00 62.00 [in_i] [facility] weight 2021-09-12 16:20:00 252 [lb_av] [facility] bmi 2021-09-12 16:20:00 46.09 kg/m2 [facility] height 2021-06-20 09:40:00 62.00 [in_i] [facility] weight 2021-06-20 09:40:00 252 [lb_av] [facility] temperature 2021-06-20 09:40:00 97.2 [degF] [facility] bmi 2021-06-20 09:40:00 46.09 kg/m2 [facility] oximetry 2021-06-20 09:40:00 94 % [facility] respiratory rate 2021-06-20 09:40:00 18 /min [facility] blood pressure 2021-06-20 09:40:00 116 mm[Hg] [facility] - systolic [facility] blood pressure 2021-06-20 09:40:00 62 mm[Hg] [facility] - diastolic [facility] height 2021-06-01 11:40:00 62.00 [in_i] [facility] weight 2021-06-01 11:40:00 252 [lb_av] [facility] temperature 2021-06-01 11:40:00 99.2 [degF] [facility] bmi 2021-06-01 11:40:00 46.09 kg/m2 [facility] oximetry 2021-06-01 11:40:00 92 % [facility] Body height 2020-10-14 15:20:00 157.5 cm [facility] Body weight 2020-10-14 15:20:00 106.595 kg [facility] BMI 2020-10-14 15:20:00 42.98 kg/m2 [facility] Systolic (mm Hg) 2021-11-17 20:59:00 [facility]inder [facility] [place] Diastolic (mm Hg) 2021-11-17 20:59:00 [facility] [place] Heart Rate 2021-11-17 20:59:00 [facility] [place] Respitory Rate 2021-11-17 20:59:00 [facility] [place] Systolic (mm Hg) 2021-09-15 14:41:00 Mohinder [facility] Diastolic (mm Hg) 2021-09-15 14:41:00 [facility] Heart Rate 2021-09-15 14:41:00 [facility] [place] Respitory Rate 2021-09-15 14:41:00 [facility] Systolic (mm Hg) 2021-07-18 21:21:00 Mohinder [facility] Diastolic (mm Hg) 2021-07-18 21:21:00 [facility] [place] Heart Rate 2021-07-18 21:21:00 [facility] [place] Respitory Rate 2021-07-18 21:21:00 [facility] [place] Systolic (mm Hg) 2021-04-27 17:01:00 Mohindre [facility] Diastolic (mm Hg) 2021-04-27 17:01:00 [facility] Heart Rate 2021-04-27 17:01:00 [facility] Respitory Rate 2021-04-27 17:01:00 [facility] Procedures Procedure Date / Time Performed Performing Clinician Sour e XR KNEE 3 VW BILATERAL 2020-10-14 15:09:03 [facility] ASSIGNMENT OF BENEFITS 2020-10-14 14:47:40 Doctor Unassigned, No [facility] [place] procedure<sup>1</sup> Encounters Start End Encounter Admission Attending Care Care Encounter Source Date/Time Date/Time Type Type Clinicians Facility Department ID 2022-10-22 Outpatient Kathrynagachad, STLMLC STLMLC [id number] Common 16:25:00 Jennifer [id number] [facility] 2022-09-19 Outpatient Richter, STLMLC STLMLC [id number] Common 08:01:00 Avnee [id number] [facility] 2022-09-11 Outpatient Richter, STLMLC STLMLC [id number] Common 13:51:00 Avnee [id number] [facility] 2022-06-13 Outpatient Richter, STLMLC STLMLC [id number] Common 07:44:00 Avnee [id number] [facility] 2022-06-07 Outpatient Richter, STLMLC STLMLC [id number] Common 14:35:00 Avnee [id number] [facility] 2022-04-17 Outpatient Christa, STLMLC STLMLC [id number] Common 08:41:00 Gaviota [id number] [facility] 2021-11-27 Outpatient Barrera, Na STLMLC STLMLC [id number] 2 Common 15:22:00 [facility] 2021-10-10 Outpatient Barrera, Na STLMLC STLMLC [id number] 2 Common 10:59:00 [facility] 2021-08-15 Outpatient Barrera, Na STLMLC STLMLC [id number] 2 Common 10:25:00 [facility] 2021-07-05 Outpatient Barrera, Na STLMLC STLMLC [id number] 2 Common 14:12:01 [facility] 2021-06-27 Outpatient Barrera, Na STLMLC STLMLC [id number] 2 Common 09:59:00 [facility] 2021-06-07 Outpatient Barrera, Na STLMLC STLMLC [id number] 2 Common 15:30:01 [facility] 2021-05-04 Outpatient Barrera, Na STLMLC STLMLC [id number] 2 Common 09:33:01 [facility] 2021-03-31 Outpatient Barrera, Na STLMLC STLMLC [id number] 2 Common 12:05:00 [facility] 2021-03-29 Outpatient Barrera, Na STLMLC STLMLC [id number] 2 Common 14:32:33 [facility] 2021-03-29 Outpatient Barrera, Na STLMLC STLMLC [id number] 2 Common 13:38:02 [id number] [facility] 2021-03-29 Outpatient Barrera, Na STLMLC STLMLC [id number] 2 Common 13:32:46 [facility] 2021-03-29 Outpatient Barrera, Na STLMLC STLMLC [id number] 2 Common 13:30:24 [facility] 2021-03-29 Outpatient Barrera, Na STLMLC STLMLC [id number] 2 Common 13:28:10 [id number] [facility] 2021-03-29 Outpatient Barrera, Na STLMLC STLMLC [id number] 2 Common 13:18:02 [id number] [facility] 2021-03-29 Outpatient Barrera, Na STLMLC STLMLC [id number] 2 Common 12:24:39 [id number] [facility] 2021-03-29 Outpatient Barrera, Na STLMLC STLMLC [id number] 2 Common 12:21:13 [id number] [facility] 2021-03-29 Outpatient Barrera, Na STLMLC STLMLC [id number] 2 Common 12:08:19 [id number] [facility] 2021-03-29 Outpatient Barrera, Na STLMLC STLMLC [id number] 2 Common 12:03:10 [id number] [facility] 2021-03-29 Outpatient Barrera, Na STLMLC STLMLC [id number] 2 Common 11:56:37 [id number] [facility] 2021-03-29 Outpatient Barrera, Na STLMLC STLMLC [id number] 2 Common 11:56:07 [id number] [facility] 2021-03-29 Outpatient Barrera, Na STLMLC STLMLC [id number] 2 Common 11:55:44 [id number] [facility] 2021-03-29 Outpatient Barrera, Na STLMLC STLMLC [id number] 2 Common 11:17:10 [id number] [facility] 2021-03-29 Outpatient Barrera, Na STLMLC STLMLC [id number] 2 Common 11:06:23 [id number] [facility] 2021-03-29 Outpatient Barrera, Na STLMLC STLMLC [id number] 2 Common 10:58:22 [id number] [facility] 2022-04-10 2022-04-10 Outpatient R RADIOLOGY [facility] [id number] [facility] 13:30:00 13:30:00 [facility] 2022-02-20 2022-02-20 (TEL) STLMLC STLMLC [id number] Co mmon 00:00:00 00:00:00 [facility] 2022-02-16 2022-02-16 Ambulatory MHIE MNA [id number] [facility] 21:15:00 21:15:00 Pre-Reg Neurology 05 andres Gore 2022-02-16 2022-02-16 Ambulatory MHIE MNA [id number] [facility] 21:15:00 21:15:00 Pre-Reg Neurology 05 andres Gore 2022-02-16 2022-02-16 Outpatient MHIE MHIE [id number] [facility] 15:15:00 15:15:00 Kalyani Gore 2022-02-16 2022-02-16 [id number] 15:15:00 15:15:00 Saul Kalyani Read 2022-02-02 2022-02-02 (TEL) STLMLC STLMLC [id number] Co mmon 00:00:00 00:00:00 [facility] 2022-01-31 2022-01-31 (TEL) STLMLC STLMLC [id number] Co mmon 00:00:00 00:00:00 [facility] 2022-01-11 2022-01-11 OL DIG E/M STLMLC STLMLC [id number] Common 00:00:00 00:00:00 [facility] [place]-20 Spir it [facility] 2022-01-09 2022-01-09 (TEL) STLMLC STLMLC [id number] Co mmon 00:00:00 00:00:00 [facility] 2021-12-11 2021-12-11 (TEL) STLMLC STLMLC [id number] Co mmon 00:00:00 00:00:00 [facility] 2021-12-07 2021-12-07 (TEL) STLMLC STLMLC [id number] Co mmon 00:00:00 00:00:00 [facility] 2021-11-29 2021-11-29 OL DIG E/M STLMLC STLMLC [id number] Common 00:00:00 00:00:00 [facility] -20 Spir it MIN [facility] 2021-11-22 2021-11-22 (TEL) STLMLC STLMLC [id number] Co mmon 00:00:00 00:00:00 [facility] 2021-11-17 2021-11-18 [facility] [id number] 04:59:59 r Neurology 04 andres Amrik Oconnellann 2021-11-17 2021-11-18 Outpatient nullFlavo MNA [id number] [facility] 21:00:00 04:59:59 r Neurology 04 l [facility] [place] 2021-11-17 2021-11-17 Outpatient JAIME CorderoMISCHER MHMISCHER [id number] 16:00:00 23:59:59 Saul Cameron Jacek 2021-11-17 2021-11-17 Outpatient MHIE JAIMEIE [id number] [facility] 16:00:00 16:00:00 04 andres [place] 2021-11-16 2021-11-16 (TEL) STLMLC STLMLC [id number] Co mmon 00:00:00 00:00:00 [facility] 2021-11-14 2021-11-14 (TEL) STLMLC STLMLC [id number] Co mmon 00:00:00 00:00:00 [facility] 2021-10-17 2021-10-17 (TEL) STLMLC STLMLC [id number] Co mmon 00:00:00 00:00:00 [facility] 2021-10-11 2021-10-11 (TEL) STLMLC STLMLC [id number] Co mmon 00:00:00 00:00:00 [facility] 2021-10-11 2021-10-11 OL DIG E/M STLMLC STLMLC [id number] Common 00:00:00 00:00:00 [facility] [place] Spir it MIN [facility] 2021-10-06 2021-10-06 (TEL) STLMLC STLMLC [id number] Co mmon 00:00:00 00:00:00 [facility] 2021-09-18 2021-09-18 (TEL) STLMLC STLMLC [id number] Co mmon 00:00:00 00:00:00 [facility] 2021-09-15 2021-09-16 Outpatient nullFlavo MNA [id number] Memoria 15:00:00 04:59:59 r Neurology 03 l Amrik Oconnellann 2021-09-15 2021-09-16 Outpatient nullFlavo MNA [id number] [facility] 15:00:00 04:59:59 r Neurology 03 l [facility] [place] 2021-09-15 2021-09-15 [facility] [id number] 10:00:00 23:59:59 Saul Flor Read 2021-09-15 2021-09-15 Outpatient MHIE MHIE [id number] [facility] 10:00:00 10:00:00 03 andres [place] 2021-09-12 2021-09-12 OL DIG E/M STLMLC STLMLC [id number] Common 00:00:00 00:00:00 [facility] [place] Spir it [facility] 2021-09-07 2021-09-07 (TEL) STLMLC STLMLC [id number] Co mmon 00:00:00 00:00:00 [facility] 2021-09-06 2021-09-06 (TEL) STLMLC STLMLC [id number] Co mmon 00:00:00 00:00:00 [facility] 2021-08-30 2021-08-30 (TEL) STLMLC STLMLC [id number] Co mmon 00:00:00 00:00:00 [facility] 2021-08-21 2021-08-21 (TEL) STLMLC STLMLC [id number] Co mmon 00:00:00 00:00:00 [facility] 2021-08-18 2021-08-18 (TEL) STLMLC STLMLC [id number] Co mmon 00:00:00 00:00:00 [facility] 2021-08-16 2021-08-16 (TEL) STLMLC STLMLC [id number] Co mmon 00:00:00 00:00:00 [facility] 2021-08-15 2021-08-15 (TEL) STLMLC STLMLC [id number] Co mmon 00:00:00 00:00:00 [facility] 2021-08-08 2021-08-08 (TEL) STLMLC STLMLC [id number] Co mmon 00:00:00 00:00:00 [facility] 2021-07-18 2021-07-19 Outpatient nullFlavo MNA [id number] Memoria 21:15:00 04:59:59 r Neurology 02 andres Amrik Oconnellann 2021-07-18 2021-07-19 Outpatient nullFlavo MNA [id number] Memoria 21:15:00 04:59:59 r Neurology 02 andres Rowley [place] 2021-07-18 2021-07-18 Outpatient JAIME CorderoMISCHER MHMISCHER [id number] 16:15:00 23:59:59 Saul Kristie Read 2021-07-18 2021-07-18 Outpatient MHIE JAIMEIE [id number] [facility] 16:15:00 16:15:00 02 andres Gore 2021-07-05 2021-07-05 OL DIG E/M STLMLC STLMLC [id number] Common 00:00:00 00:00:00 [facility] [place] [facility] 2021-07-03 2021-07-03 (TEL) STLMLC STLMLC [id number] Co mmon 00:00:00 00:00:00 [facility] 2021-06-28 2021-06-28 OFFICE STLMLC STLMLC [id number] Co mmon 00:00:00 00:00:00 VISIT [facility] 4 [facility] 2021-06-21 2021-06-21 (TEL) STLMLC STLMLC [id number] Co mmon 00:00:00 00:00:00 [facility] 2021-06-20 2021-06-20 OFFICE STLMLC STLMLC [id number] Co mmon 00:00:00 00:00:00 VISIT EST Spir it PT LEVEL 3 [facility] 2021-06-07 2021-06-07 (TEL) STLMLC STLMLC [id number] Co mmon 00:00:00 00:00:00 [facility] 2021-06-01 2021-06-01 (TEL) STLMLC STLMLC [id number] Co mmon 00:00:00 00:00:00 [facility] 2021-06-01 2021-06-01 OFFICE STLMLC STLMLC [id number] Co mmon 00:00:00 00:00:00 VISIT EST Spir it PT LEVEL 3 [facility] 2021-06-01 2021-06-01 (TEL) STLMLC STLMLC [id number] Co mmon 00:00:00 00:00:00 [facility] 2021-05-25 2021-05-25 Ambulatory nullFlavo MNA [id number] Memoria 18:00:00 18:00:00 Pre-Reg r Neurology 01 l Amrik [place] 2021-05-25 2021-05-25 Ambulatory nullFlavo MNA [id number] Memoria 18:00:00 18:00:00 Pre-Reg r Neurology 01 l Amrik Oconnellann 2021-05-25 2021-05-25 Outpatient LUCIA MYERS [id number] [facility] 13:00:00 13:00:00 01 andres Gore 2021-05-25 2021-05-25 Outpatient JAIME CorderoMISCHER MISCHER [id number] 13:00:00 13:00:00 Saul Rosy Jacek 2021-05-22 2021-05-22 (TEL) STLMLC STLMLC [id number] Co mmon 00:00:00 00:00:00 [facility] 2021-05-05 2021-05-05 (TEL) STLMLC STLMLC [id number] Co mmon 00:00:00 00:00:00 [facility] 2021-04-27 2021-04-28 Outpatient nullFlavo MNA [id number] Memoria 17:00:00 05:59:59 r Neurology 00 l Amrik Gore 2021-04-27 2021-04-28 Outpatient nullFlavo MNA [id number] Memoria 17:00:00 05:59:59 r Neurology 00 l Amrik Gore 2021-04-27 2021-04-27 Outpatient [facility] [id number] 11:00:00 23:59:59 Saul 00 Jacek 2021-04-27 2021-04-27 Outpatient MHIE MHIE [id number] Memoria 11:00:00 11:00:00 00 l [place] 2021-04-24 2021-04-24 (TEL) STLMLC STLMLC [id number] Co mmon 00:00:00 00:00:00 [facility] 2021-04-24 2021-04-24 (TEL) STLMLC STLMLC [id number] Co mmon 00:00:00 00:00:00 [facility] 2021-04-18 2021-04-18 (TEL) STLMLC STLMLC [id number] Co mmon 00:00:00 00:00:00 [facility] 2021-04-07 2021-04-07 (TEL) STLMLC STLMLC [id number] Co mmon 00:00:00 00:00:00 [facility] 2021-04-07 2021-04-07 (TEL) STLMLC STLMLC [id number] Co mmon 00:00:00 00:00:00 [facility] 2021-03-31 2021-03-31 (TEL) STLMLC STLMLC [id number] Co mmon 00:00:00 00:00:00 [facility] 2021-03-31 2021-03-31 (TEL) STLMLC STLMLC [id number] Co mmon 00:00:00 00:00:00 [facility] 2021-03-28 2021-03-28 (TEL) STLMLC STLMLC [id number] Co mmon 00:00:00 00:00:00 [facility] 2021-03-17 2021-03-17 (TEL) STLMLC STLMLC [id number] Co mmon 00:00:00 00:00:00 [facility] 2021-03-16 2021-03-16 (TEL) STLMLC STLMLC [id number] Co mmon 00:00:00 00:00:00 [facility] 2021-03-16 2021-03-16 (TEL) STLMLC STLMLC [id number] Co mmon 00:00:00 00:00:00 [facility] 2021-03-13 2021-03-13 OFFICE STLMLC STLMLC [id number] Co mmon 00:00:00 00:00:00 VISIT [facility] 4 [facility] 2021-03-10 2021-03-10 (TEL) STLMLC STLMLC [id number] Co mmon 00:00:00 00:00:00 [facility] 2020-10-14 2020-10-14 [facility] [id number] Univers 09:51:55 23:59:00 Encounter Shonda [facility] [id number] ity of [place] [id number] [facility] [phone] [facility] [address] 2020-10-14 2020-10-14 [facility] [id number] Univers 10:14:41 11:07:28 Visit [facility] [id number] it y of Surgical [id number] Yaya as [facility] [id number] Ca dical es [address] [place] 2020-10-14 2020-10-14 [facility] [id number] Univers 00:00:00 00:00:00 SHONDA ity [facility] 2020-10-14 2020-10-14 Orders Doctor [place] [id number] Univers 00:00:00 00:00:00 Only Unassigned, NIKOLE [id number] ity of [place] [facility] [id number] Yaya as [id number] [address] 2020-10-07 2020-10-07 Outpatient Sendy [facility] [id number] Univers 08:30:00 08:30:00 ELLE dalal [facility] 2020-10-03 2020-10-03 Outpatient STLMLC STLMLC [id number] Common 00:00:00 00:00:00 [facility] 2020-09-27 2020-09-27 Outpatient STLMLC STLMLC [id number] Common 00:00:00 00:00:00 [facility] 2020-09-27 2020-09-27 Outpatient STLMLC STLMLC [id number] Common 00:00:00 00:00:00 [facility] 2020-08-24 2020-08-24 Outpatient STLMLC STLMLC [id number] Common 00:00:00 00:00:00 [facility] 2020-08-24 2020-08-24 Outpatient STLMLC STLMLC [id number] Common 00:00:00 00:00:00 [facility] 2020-03-30 2020-03-30 Outpatient STLMLC STLMLC [id number] Common 00:00:00 00:00:00 [facility] 2020-02-08 2020-02-08 Outpatient STLMLC STLMLC [id number] Common 00:00:00 00:00:00 [facility] 2019-12-28 2019-12-28 Outpatient STLMLC STLMLC [id number] Common 00:00:00 00:00:00 [facility] 2019-12-21 2019-12-21 Outpatient STLMLC STLMLC [id number] Common 00:00:00 00:00:00 [facility] 2019-12-21 2019-12-21 Outpatient STLMLC STLMLC [id number] Common 00:00:00 00:00:00 [facility] 2019-12-14 2019-12-14 Outpatient STLMLC STLMLC [id number] Common 00:00:00 00:00:00 [facility] 2019-08-27 2019-08-27 [facility] [id number] Common 08:35:00 08:35:[address] [place] [address] [facility] 2019-08-10 2019-08-10 [facility] [id number] Common 14:58:00 14:58:00 [address] [place] [address] [facility] 2019-08-07 2019-08-07 [facility] [id number] Common 15:31:00 15:31:00 [place] [address] [facility] 2019-08-06 2019-08-06 [facility] [id number] Common 08:00:00 08:00:00 [place] [address] [facility] 2019-07-06 2019-07-06 [facility] [id number] Common 16:34:00 16:34:00 [place] [address] [facility] 2019-06-11 2019-06-11 Out[facility] [id number] Common 11:14:00 11:14:00 [place] [address] [facility] 2019-05-28 2019-05-28 [facility] [id number] Common 16:13:00 16:13:00 [place] [address] [facility] 2019-03-19 2019-03-19 Out[facility] [id number] Common 16:53:00 16:53:00 [place] [address] [facility] 2019-03-17 2019-03-17 Out[facility] [id number] Common 08:02:00 08:02:00 [address] [place] [address] [facility] 2019-03-11 2019-03-11 Out[facility] [id number] Common 15:56:00 15:56:00 [address] [place] [address] [facility] 2019-03-11 2019-03-11 Out[facility] [id number] Common 08:53:00 08:53:00 [address] [place] [address] [facility] 2019-03-10 2019-03-10 Out[facility] [id number] Common 13:40:00 13:40:00 [place] [address] [facility] 2018-10-28 2018-10-28 Out[facility] [id number] Common 11:44:00 11:44:00 [place] [address] [facility] 2018-10-09 2018-10-09 Out[facility] [id number] Common 09:34:00 09:34:00 [address] [place] [address] [facility] 2018-09-01 2018-09-01 Out[facility] [id number] Common 08:40:00 08:40:00 [address] [place] [address] [facility] 2018-08-29 2018-08-29 Out[facility] [id number] Common 13:39:00 13:39:00 [place] [address] [facility] 2018-06-13 2018-06-13 Out[facility] 25 Common 14:41:00 14:41:00 [place] [address] [facility] 2018-06-11 2018-06-11 Out[facility] [id number] Common 09:59:00 09:59:00 [place] [address] [facility] 2018-06-03 2018-06-03 Out[facility] [id number] Common 11:00:00 11:00:00 [place] [address] [facility] 2018-05-12 2018-05-12 Out[facility] [id number] Common 09:43:00 09:43:00 [address] [place] [address] [facility] 2018-04-17 2018-04-17 [facility] [id number] Common 13:45:00 13:45:00 t Specialty/U Sp vesta Specialty rology - [facility] /Urology Clinic [facility] 2018-04-03 2018-04-03 [facility] [id number] Common 08:31:00 08:31:00 [address] [place] [address] [facility] 2018-03-28 2018-03-28 Out[facility] [id number] Common 13:10:00 13:10:00 [place] [address] [facility] 2018-03-28 2018-03-28 Out[facility] [id number] Common 10:52:00 10:52:00 t Specialty/U Sp vesta Specialty rology - [facility] /Urology Clinic [facility] 2018-03-26 2018-03-26 [facility] [id number] Common 16:01:00 16:01:00 [place] [address] [facility] 2018-03-25 2018-03-25 Out[facility] [id number] Common 08:15:00 08:15:00 [address] [place] [address] [facility] 2017-12-16 2017-12-16 Outpatient STLMLC STLMLC [id number] Common 00:00:00 00:00:00 [facility] Results Test Description Test Time Test Comments Results Result Sourc e Comments XR KNEE 3 VW 2020-10-02 1. University o f BILATERAL 3 ?Osteoarthritis. [facility] dicme 17:10:44 RL: [id number] HISTORY: ?bilateral knee [...]
[2022-11-03] MEDS ORDERED: METHYLPREDNISOLONE 125 MG INJ ONE (07:38)
[2022-11-03] MEDS ORDERED: LEVALBUTEROL 1.25 MG/3 ML NEB ONE (07:39)
[2022-11-03] MEDS ORDERED: FENTANYL CITR 100 MCG/2 ML ONE (07:39)
[2022-11-03 07:44] LABS: Absolute Lymphocytes (CBC) 0.7 K/uL (0.7-4.9); Hematocrit 42.4 % (36.0-45.0); Lymphocytes % 5.2 % (15.3-44.8); MCV 97.5 fL (80-100); MPV 8.4 fL (7.6-11.3); Platelets 322 thou/uL (152-406); RBC Red Blood Cell Count 4.35 M/uL (3.86-4.86)
[2022-11-03 08:00] LABS: Albumin 3.3 g/dL (3.4-5.0); Bilirubin Direct 0.5 mg/dL (0-0.2); Bilirubin Indirect, Calculated 0.4 mg/dL (0.2-0.8); Bilirubin Total 0.9 mg/dL (0.2-1.0); Magnesium 1.8 mg/dL (1.6-2.4); Potassium 4.1 mEq/L (3.5-5.1); Protein, Total 6.5 g/dL (6.4-8.2); Troponin High Sensitivity 24.1 pg/mL (<58.9)
[2022-11-03] MEDS ORDERED: D10W 250 ML IV ONE (08:23)
--- NOTE | 2022-11-03 08:28 | ER ---
Nurse's Notes [facility] [place]lon Name: Earnest Baker Age: 72 yrs Sex: Female : 1950 Arrival Date: 11/03/2022 Time: 06:57 Bed 7 Private MD: Diagnosis: COPD/ Chronic obstructive pulmonary disease with (acute) exacerbation;Hypo-osmolality and hyponatremia;Hypoglycemia, unspecified;Acidosis;Diabetes mellitus Presentation: 11/03 07:01 Chief complaint: EMS states: CHRONIC SOB, NECK AND BACK PAIN. Coronavirus screen: At bp this time, the client does not indicate any symptoms associated with coronavirus-19. Ebola Screen: No symptoms or risks identified at this time. Initial Sepsis Screen: Does the patient meet any 2 criteria? No. Patient's initial sepsis screen is negative. Does the patient have a suspected source of infection? No. Patient's initial sepsis screen is negative. Risk Assessment: Do you want to hurt yourself or someone else? Patient reports no desire to harm self or others. Onset of symptoms is unknown. Care prior to arrival: Med neb given. 07:01 Method Of Arrival: EMS: [facility] bp 07:01 Acuity: AMANDA 3 bp Triage Assessment: 07:02 General: Appears distressed, Behavior is cooperative, appropriate for age, anxious. bp Pain: Complains of pain in back of neck and posterior chest. Respiratory: Reports shortness of breath. Historical: - Allergies: 07:02 No Known Allergies; bp - PMHx: 07:02 COPD; diabetes mellitus; Gastroesophageal reflux disease; Home Oxygen; Hypertension; bp Hypothyroidism; - Immunization history:: Adult Immunizations up to date. - Social history:: Smoking status: Patient denies any tobacco usage or history of. Screenin:06 [facility] ED Fall Risk Assessment (Adult) History of falling in the last 3 months, bp including since admission No falls in past 3 months (0 pts). Abuse screen: Denies threats or abuse. Denies injuries from another. Nutritional screening: No deficits noted. Tuberculosis screening: No symptoms or risk factors identified. Assessment: 07:07 General: SEE TRIAGE NOTE. bp 07:19 General: Appears uncomfortable, Behavior is agitated, anxious. Pain: Complains of pain iw in posterior chest and back of neck. Neuro: Level of Consciousness is awake, alert, obeys commands, Oriented to person, place, time, situation, Moves all extremities. Full function. Cardiovascular: Reports chest pain, shortness of breath, Patient's skin is warm and dry. Respiratory: Reports shortness of breath Respiratory effort is even, unlabored, Respiratory pattern is regular, symmetrical. GI: Abdomen is non-distended, obese. Derm: Skin is intact. Musculoskeletal: Range of motion: intact in all extremities. 08:57 Reassessment: Patient appears in no apparent distress at this time. Patient is alert, iw oriented x 3, equal unlabored respirations, skin warm/dry/pink. at beside. Vital Signs: 07:01 BP 121 / 79; Pulse 117; Resp 24; Temp 98; Pulse Ox 96% on 2 lpm NC; bp 07:43 BP 99 / 50; Pulse 109; Resp 22 S; Pulse Ox 100% on Nebulizer Mask; iw 08:25 BP 107 / 74; Pulse 110; Resp 20 S; Pulse Ox 98% on 3 lpm NC; iw 08:57 BP 129 / 63; Pulse 97; Resp 18; Pulse Ox 98% on 3 lpm NC; iw 10:52 BP 149 / 94; Pulse 96; Resp 19; Pulse Ox 98% on 3 lpm NC; iw ED Course: 07:00 Patient arrived in ED. rv 07:02 Triage completed. bp 07:03 Lobo Sauceda MD is Attending Physician. kdr 07:06 Arm band placed on. bp 07:06 Patient has correct armband on for positive identification. Bed in low position. Call bp light in reach. Side rails up X2. 07:21 Yin Alex RN is Primary Nurse. iw 07:34 Inserted saline lock: 24 gauge in right forearm, using aseptic technique. Blood ds4 collected. 08:25 Raheel Thomas MD is Hospitalizing Provider. kdr 09:05 No provider procedures requiring assistance completed. iw 09:29 XRAY Chest (1 view) In Process Unspecified. EDMS Administered Medications: 07:33 Drug: MethylPrednisoLONE IVP 125 mg Route: IVP; Site: right forearm; iw 08:38 Follow up: Response: No adverse reaction iw 07:34 Drug: Levalbuterol Inhalation 1.25 mg Route: Inhalation; iw 07:34 Drug: fentaNYL (PF) IVP 25 mcg Route: IVP; Site: right forearm; iw 08:38 Follow up: Response: No adverse reaction iw 07:34 Drug: NS 0.9% IV 250 ml Route: IV; Rate: bolus; Site: right forearm; iw 08:37 Follow up: IV Status: Completed infusion iw 08:20 Drug: D10 in Water IVP 250 ml Route: IVP; Site: right forearm; iw 10:00 Follow up: Response: Blood sugar is elevated iw 08:24 Not Given (Other Intervention Used): D50W IVP 50 ml IVP once; (1 amp) iw 09:45 Drug: Ondansetron IVP 4 mg Route: IVP; Site: right forearm; iw 10:15 Follow up: Response: No adverse reaction iw 10:05 Drug: fentaNYL (PF) IVP 25 mcg Route: IVP; Site: right forearm; iw 10:30 Follow up: Response: No adverse reaction iw 10:20 Drug: NS 0.9% IV 1000 ml Route: IV; Rate: 125 ml/hr; Site: right forearm; iw 13:00 Follow up: IV Status: Order to discontinue infusion iw Medication: 07:20 VIS not applicable for this client. iw Point of Care Testing: Blood Glucose: 09:50 Blood Glucose: 119 mg/dL; rs5 Ranges: Outcome: 08:28 Decision to Hospitalize by Provider. kdr 13:06 Patient left the ED. iw Signatures: Dispatcher [employer] EDMS Lobo Sauceda MD MD kdr Yin Alex RN RN iw Abelino Coronado ds4 Dylan Chabmers RN RN bp Jameson Schwartz RN RN rv Lanre Hoffman RN RN rs5
--- NOTE | 2022-11-03 08:28 | EDPHYS ---
Physician Documentation [facility] Name: Earnest Baker Age: 72 yrs Sex: Female : 1950 Arrival Date: 11/03/2022 Time: 06:57 Bed 7 Private MD: ED Physician Lobo Sauceda HPI: 11/03 07:18 This 72 yrs old Female presents to ER via EMS with complaints of Shortness of breath kdr and pain all over. 07:18 Patient states that since yesterday she has had increasing shortness of breath and pain kdr all over. Patient seen here multiple times for similar episodes. Patient otherwise not in any acute distress. Patient is mildly tachycardic and tachypneic. Oxygen saturation is 96% on facemask. Patient denies fever.. Onset: The symptoms/episode began/occurred yesterday. Severity of symptoms: At their worst the symptoms were moderate in the emergency department the symptoms are unchanged. The patient has experienced similar episodes in the past, chronically. The patient has been recently seen by a physician:. 07:20 Patient was last seen in the ED here in early June of this year. Patient has been kdr admitted on the last 3 or 4 visits.. Historical: - Allergies: 07:02 No Known Allergies; bp - PMHx: 07:02 COPD; diabetes mellitus; Gastroesophageal reflux disease; Home Oxygen; Hypertension; bp Hypothyroidism; - Immunization history:: Adult Immunizations up to date. - Social history:: Smoking status: Patient denies any tobacco usage or history of. ROS: 07:20 Constitutional: Negative for fever, chills, and weight loss, Eyes: Negative for injury, kdr pain, redness, and discharge, ENT: Negative for injury, pain, and discharge, Neck: Negative for injury, pain, and swelling, Abdomen/GI: Negative for abdominal pain, nausea, vomiting, diarrhea, and constipation, Back: Negative for injury and pain, : Negative for injury, bleeding, discharge, and swelling, MS/Extremity: Negative for injury and deformity, Skin: Negative for injury, rash, and discoloration, Neuro: Negative for headache, weakness, numbness, tingling, and seizure activity. Psych: Negative for depression, anxiety, suicide ideation, homicidal ideation, and hallucinations, Allergy/Immunology: Negative for hives, rash, and allergies, Endocrine: Negative for neck swelling, polydipsia, polyuria, polyphagia, and marked weight changes, Hematologic/Lymphatic: Negative for swollen nodes, abnormal bleeding, and unusual bruising. 07:20 Cardiovascular: Positive for chest pain, with cough, with movement, Negative for edema, orthopnea, palpitations, paroxysmal nocturnal dyspnea. 07:20 Respiratory: Positive for cough, with no reported sputum, dyspnea on exertion, shortness of breath, at rest. wheezing, inspiratory. Exam: 07:20 Constitutional: This is a well developed, well nourished patient who is awake, alert, kdr and in mild distress. Head/Face: Normocephalic, atraumatic. Eyes: Pupils equal round and reactive to light, extra-ocular motions intact. Lids and lashes normal. Conjunctiva and sclera are non-icteric and not injected. Cornea within normal limits. Periorbital areas with no swelling, redness, or edema. Neck: Trachea midline, no thyromegaly or masses palpated, and no cervical lymphadenopathy. Supple, full range of motion without nuchal rigidity, or vertebral point tenderness. No Meningismus. Chest/axilla: Normal chest wall appearance and motion. Nontender with no deformity. No lesions are appreciated. Abdomen/GI: Soft, non-tender, with normal bowel sounds. No distension or tympany. No guarding or rebound. No evidence of tenderness throughout. Back: No spinal tenderness. No costovertebral tenderness. Full range of motion. Skin: Warm, dry with normal turgor. Normal color with no rashes, no lesions, and no evidence of cellulitis. MS/ Extremity: Pulses equal, no cyanosis. Neurovascular intact. Full, normal range of motion. Neuro: Awake and alert, GCS 15, oriented to person, place, time, and situation. Cranial nerves II-XII grossly intact. Motor strength 5/5 in all extremities. Sensory grossly intact. Cerebellar exam normal. Normal gait. Psych: Awake, alert, with orientation to person, place and time. Behavior, mood, and affect are within normal limits. 07:20 Cardiovascular: Rate: tachycardic, Rhythm: regular, Pulses: no pulse deficits are appreciated, Heart sounds: normal, Edema: is not appreciated. 07:20 ECG was reviewed by the Attending Physician. Vital Signs: 07:01 BP 121 / 79; Pulse 117; Resp 24; Temp 98; Pulse Ox 96% on 2 lpm NC; bp 07:43 BP 99 / 50; Pulse 109; Resp 22 S; Pulse Ox 100% on Nebulizer Mask; iw 08:25 BP 107 / 74; Pulse 110; Resp 20 S; Pulse Ox 98% on 3 lpm NC; iw 08:57 BP 129 / 63; Pulse 97; Resp 18; Pulse Ox 98% on 3 lpm NC; iw 10:52 BP 149 / 94; Pulse 96; Resp 19; Pulse Ox 98% on 3 lpm NC; iw MDM: 08:28 Patient medically screened. kdr 08:28 Data reviewed: vital signs, nurses notes, lab test result(s), radiologic studies. [facility] 11/03 07:18 Order name: Basic Metabolic Panel; Complete Time: 08:03 [facility] 11/03 07:18 Order name: CBC with Diff; Complete Time: 10:22 [facility] 11/03 07:18 Order name: LFT's; Complete Time: 08:03 [facility] 11/03 07:18 Order name: Magnesium; Complete Time: 08:03 [facility] 11/03 07:18 Order name: NT PRO-BNP; Complete Time: 08:03 [facility] 11/03 07:18 Order name: Troponin HS; Complete Time: 08:03 kdr 11/03 08:23 Order name: ABG; Complete Time: 10:22 [facility] 11/03 09:13 Order name: CBC Smear Scan; Complete Time: 10:22 EDND 11/03 09:50 Order name: ETOH Level 11/03 10:14 Order name: Glucose, Ancillary Testing; Complete Time: 10:22 EDND 11/03 10:47 Order name: Alcohol Serum/Plasma EDND 11/03 07:18 Order name: XRAY Chest (1 view); Complete Time: 10:22 [facility] 11/03 09:51 Order name: CT Abd/Pelvis - Without Contrast 11/03 09:57 Order name: ERT LEGAL BLOOD ALCHOL W/LWBS EDND 11/03 11:21 Order name: CT EDND 11/03 07:18 Order name: EKG; Complete Time: 07:18 [facility] 11/03 09:49 Order name: CONS Physician Consult EDND 11/03 07:18 Order name: Cardiac monitoring; Complete Time: 07:40 [facility] 11/03 07:18 Order name: EKG - Nurse/Tech; Complete Time: 07: kdr 11/03 07:18 Order name: IV Saline Lock; Complete Time: 07: kdr 11/03 07:18 Order name: Labs collected and sent; Complete Time: kdr 11/03 07:18 Order name: O2 Per Protocol; Complete Time: kdr 11/03 07:18 Order name: O2 Sat Monitoring; Complete Time: :34 kdr EC:20 Rate is 117 beats/min. Rhythm is regular, Sinus tachycardia with No ectopy. QRS [place] is kdr Normal. [place] interval is normal. QRS interval is normal. Clinical impression: Sinus tachycardia. Administered Medications: 07:33 Drug: MethylPrednisoLONE IVP 125 mg Route: IVP; Site: right forearm; iw 08:38 Follow up: Response: No adverse reaction iw 07:34 Drug: Levalbuterol Inhalation 1.25 mg Route: Inhalation; iw 07:34 Drug: fentaNYL (PF) IVP 25 mcg Route: IVP; Site: right forearm; iw 08:38 Follow up: Response: No adverse reaction iw 07:34 Drug: NS 0.9% IV 250 ml Route: IV; Rate: bolus; Site: right forearm; iw 08:37 Follow up: IV Status: Completed infusion iw 08:20 Drug: D10 in Water IVP 250 ml Route: IVP; Site: right forearm; iw 10:00 Follow up: Response: Blood sugar is elevated iw 08:24 Not Given (Other Intervention Used): D50W IVP 50 ml IVP once; (1 amp) iw 09:45 Drug: Ondansetron IVP 4 mg Route: IVP; Site: right forearm; iw 10:15 Follow up: Response: No adverse reaction iw 10:05 Drug: fentaNYL (PF) IVP 25 mcg Route: IVP; Site: right forearm; iw 10:30 Follow up: Response: No adverse reaction iw 10:20 Drug: NS 0.9% IV 1000 ml Route: IV; Rate: 125 ml/hr; Site: right forearm; iw 13:00 Follow up: IV Status: Order to discontinue infusion iw Point of Care Testing: Blood Glucose: 09:50 Blood Glucose: 119 mg/dL; rs5 Ranges: Critical Glucose Levels:Adult <50 mg/dl or >400 mg/dl <40 mg/dl or >180 mg/dl Disposition Summary: 11/03/22 08:28 Hospitalization Ordered Hospitalization Status: Inpatient Admission kdr Provider: Raheel Thomas Location: Telemetry/MedSurg (Inpatient) kdr Condition: Fair kdr Problem: new kdr Symptoms: have improved kdr Bed/Room Type: Standard kdr Room Assignment: kdr Diagnosis - COPD/ Chronic obstructive pulmonary disease with (acute) exacerbation kdr - Hypo-osmolality and hyponatremia kdr - Hypoglycemia, unspecified kdr - Acidosis kdr - Diabetes mellitus kdr Forms: - Medication Reconciliation Form kdr - SBAR form kdr - Leadership Thank You Letter kdr Signatures: Dispatcher [employer] EDMS Lobo Sauceda MD MD kdr Yin Alex RN RN iw Dylan Chambers RN RN bp
[2022-11-03 08:38] LABS: Arterial Blood Carboxyhemoglob 0.5 % (0-1.5); Blood Gas Oxyhemoglobin 89.8 % (94-97); Blood O2 Saturation 92.1 % (92-98.5)
[2022-11-03 09:13] LABS: Blood Morphology Comment NOT SEEN (NOT SEEN); Platelet Estimate ADEQ; White Blood Cell Scan OK (OK)
--- NOTE | 2022-11-03 09:38 | P.HP ---
Certification for Inpatient Patient admitted to: Observation With expected LOS: <2 Midnights Patient will require the following post-hospital care: None Practitioner: I am a practitioner with admitting privileges, knowledge of patient current condition, hospital course, and medical plan of care. Services: Services provided to patient in accordance with Admission requirements found in Title 42 Section 412.3 of the Code of Federal Regulations Patient History Date of Service: 11/03/22 Reason for admission: Hyonatremia History of Present Illness: Patient is a 72-year-old female presents to the ED via EMS complaints of shortness of breath and pain all over. Past medical history of diabetes, gastroesophageal reflux disease, home oxygen on 3.5 L, hypertension, hypothyroidism, and chronic pain. is at the bedside and is a good historian stating patient has a history of hyponatremia which she has tried to treat with [id number]-uxzygyz sodium pills. Patient has not seen any specialist for this condition and has come to the ER multiple times with hyponatremia. Patient's reports confusion that started yesterday which prompted his attention to send her to the ED today. Patient's also states she has been binge drinking for the last 4 days when she ran out of hydrocodone for her chronic pain, last drink was last night. Upon arrival to the ED patient sodium was noted to be 119, creatinine 1.16, glucose 36, BNP 1804, white blood cells 14.10, EKG shows tachycardia 109, on 3 L nasal cannula satting 96%. Patient is being admitted for hyponatremia. Allergies No Known Allergies Allergy (Verified 12/07/19 09:23) Home Medications: Cetirizine HCl [Zyrtec] 10 mg PO DAILY 05/05/21 Levothyroxine [Synthroid*] 50 mcg PO DAILY 05/05/21 Gabapentin 300 mg PO BEDTIME #30 05/12/21 Mometasone/Formoterol [Dulera 200 Mcg/5 Mcg Inhaler] 2 puff IH BID #1 inhaler 05/12/21 predniSONE [Deltasone*] 10 mg PO DAILY #70 tab 05/12/21 Hydrocodone 5/APAP 325 [[place] 5/325*] 5 - 325 mg PO Q4H PRN 06/09/22 Nitrofuran Macro [Macrobid*] 100 mg PO BID 7 Days #14 cap 06/18/22 Sodium Chloride Tab [Sodium Chloride*] 1 gm PO BID 30 Days #60 tab 06/18/22 Spironolactone [Aldactone*] 25 mg PO DAILY 30 Days #30 tab 06/18/22 - Past Medical/Surgical History Diabetic: No -: COPDon home oxygen -: Hypertension -: Chronic pain -: Major depressive disorder -: Tobacco Abuse -: hyst/bladder suspension, bilateral lens replacement Psychosocial/ Personal History: Unemployed, lives at home with her - Social History Alcohol use: Yes CD- Drugs: No Caffeine use: No Review of Systems General: Weakness, Malaise Gastrointestinal: Nausea, Vomiting Neurological: Weakness, Confusion Physical Examination - Physical Exam General: Oriented x3 HEENT: Atraumatic, Normocephalic, PERRLA Neck: Supple Respiratory: Clear to auscultation bilaterally Cardiovascular: No edema, Regular rate/rhythm, Normal S1 S2 Capillary refill: <2 Seconds Gastrointestinal: Normal bowel sounds Neurological: Normal speech, Normal tone - Studies Laboratory Data (last 24 hrs) 11/03/22 11/03/22 07:03 07:03 WBC 14.10 H Hgb 14.5 Hct 42.4 Plt Count 322 Sodium 119 L* Potassium 4.1 BUN 32 H Creatinine 1.61 H Glucose 36 L* Magnesium 1.8 Total Bilirubin 0.9 AST 48 H ALT 28 Alkaline Phosphatase 92 Assessment and Plan - Plan Assessment and Plan - Problems (Diagnosis) (1) Hyponatremia -fluid restriction -sodium tablet -consult nephrology -monitor in AM labs (2) COPD (chronic obstructive pulmonary disease) -home oxygen 3.5 liters -IS -continue home medications (3) Essential hypertension -continue home medications (4) Hypothyroid -continue home medications (5) T2DM (type 2 diabetes mellitus) -Accucheck with SSI DVT PPX SCD Full code NPO while N/V Discharge Plan: Home Plan to discharge in: 72 Hours - Advance Directives Does patient have a Living Will: Yes Does patient have a Durable POA for Healthcare: No
--- NOTE | 2022-11-03 09:43 | RAD REPORT ---
EXAM DESCRIPTION: RADChest Single View11/03/2022 9:28 am CLINICAL HISTORY: COPD COMPARISON: Chest Single View dated 06/16/2022; Chest Single View dated 06/13/2022; Chest Single View dated 06/08/2022; Chest Single View dated 06/04/2022 TECHNIQUE: Portable AP view of the chest. FINDINGS: The lungs are clear. No pneumothorax or effusion. The cardiomediastinal contours are unre markable. IMPRESSION: No acute cardiopulmonary process.
[2022-11-03] MEDS ORDERED: ONDANSETRON 4 MG/2 ML VIAL ONE (09:53)
[2022-11-03] MEDS ORDERED: LORazepam 2 MG/ML VIAL IV PRN (10:00)
--- NOTE | 2022-11-03 11:21 | RAD REPORT ---
EXAM DESCRIPTION: CT - Chest Abd Pelvis Wo Con - 11/03/2022 10:40 am CLINICAL HISTORY: sob, back oain COMPARISON: Chest Abd Pelvis Wo Con dated 06/08/2022; Chest For Pe Angio dated 01/27/2022; Chest Angio dated 05/05/2021 TECHNIQUE: Thin axial CT images of the chest, abdomen, and pelvis, performed without IV contrast. Mu ltiplanar reformats were generated and reviewed. All CT scans are performed using dose optimization technique as appropriate and may include automated exposure control or mA/KV adjustment according to patient size. FINDINGS: Motion artifact limits evaluation. The lungs are clear.No pleural or pericardial effusion.No intrathoracic adenopathy. Diffuse wall thickening of the mid to lower thoracic esophagus with fluid filling. Some wall prominen ce is seen also in the region of the pylorus and proximal duodenum. The liver shows diffuse parenchymal hypoattenuation suggesting steatosis. Spleen, pancreas, adrenal g lands, and kidneys are within normal limits. Pronounced fluid distention of the stomach. No bowel obstruction, free air, free fluid or abscess. Co lonic diverticulosis. Appendix is not well visualized although without appreciable inflammatory mendez es in its location. No pathologic lymphadenopathy in the abdomen or pelvis. No worrisome osseous finding. Mild superior endplate compression deformity at L3 is stable IMPRESSION: Diffuse wall thickening of the mid to lower thoracic esophagus with fluid filling. Marke d fluid distention of the stomach. Some wall prominence is also seen in the region of the pylorus and proximal duodenum. Findings suggest an inflammatory process such as gastroenteritis and duodenitis. No other acute findings in the chest or abdomen. Diffuse hepatic parenchymal hypoattenuation suggesting steatosis. Colonic diverticulosis.
[2022-11-03] MEDS ORDERED: ONDANSETRON 4 MG/2 ML VIAL IV ONE (12:11)
[2022-11-03] MEDS ORDERED: ONDANSETRON 4 MG/2 ML VIAL IV PRN (12:15)
[2022-11-03] MEDS ORDERED: SODIUM CHLORIDE 0.9% 10ML INJ IV PRN (12:37)
[2022-11-03] MEDS ORDERED: PANTOPRAZOLE 40 MG INJ IVP SCH (13:00)
[2022-11-03 13:22] VITALS: TEMP 98
[2022-11-03 13:25] VITALS: O2SAT 98
[2022-11-03 13:27] VITALS: BP 149/94
[2022-11-03] MEDS ORDERED: FOLIC ACID 1 MG in NA CHLORIDE 0.9% 50 ML IV SCH (13:30)
--- NOTE | 2022-11-03 14:35 | EKG ---
Test Date: 2022-11-03 Test Time: 07:12:27 [employer] Supervisor: MICHELLE MEASUREMENT RESULTS: Intervals: Rate: 120 MS: 162 QRSD: 84 QT: 326 QTc: 460 [place]: P: 32 MS: 162 QRS: 53 T: 71 INTERPRETIVE STATEMENTS: Sinus tachycardia Anteroseptal infarct, age undetermined Abnormal ECG Compared to ECG 06/04/2022 04:50:52 Sinus rhythm no longer present Myocardial infarct finding still present Electronically Signed On 11-03-22 14:35:25 CDT by Roger Fajardo
[2022-11-03] MEDS ORDERED: HEPARIN 5000 UNIT/ML 1 ML VIAL SQ SCH (17:00)
--- NOTE | 2022-11-03 17:39 | CON ---
Date of Consultation: 11/03/2022 Reason For Consultation: Elevated NT-proBNP. History Of Present Illness: 72-year-old female presented to the emergency room, generalized pain all over, some shortness of breath on exertion. She does have past medical history of COPD, hypertensio n, major depression. She denies having any active chest pain and in the emergency room, sodium level was low, so she was placed for observation and blood work routinely showed elevated NT-proBNP, so I was asked to see her. She does not seem to be overloaded with fluids. No significant shortness of b reath, orthopnea, or lower extremity edema. Past Medical History: As outlined above in the HPI. Medications: Refer to reconciliation sheet for detailed list. Allergies: NO KNOWN DRUG ALLERGIES. Family History: No premature coronary artery disease or cancer. Social History: She does not smoke or drink. Does not use any drugs. Review of Systems: All systems reviewed and they were negative except what mentioned in HPI. Physical Examination: Vital Signs: Reviewed. Head and Neck: Pupils are equal, reactive to light. Intact eye movements. No JVD. No cervical lym phadenopathy. Neck is supple. Thyroid is not enlarged. Lungs: Decreased breathing sounds. No accessory muscle use or muscle retraction. Heart: Irregular. No extra sounds. Abdomen: Soft, nontender. Bowel sounds positive. No organomegaly. No masses or hernia. No rigidi ty or rebound. Extremities: No edema, clubbing, or cyanosis. Intact pulses. Skin: No rashes. No nodule. Neurologic: Alert, awake, oriented x3. No acute focal deficits appreciated Lymph Nodes: No cervical or axillary lymphadenopathy. Investigations: BUN 32, creatinine 1.60, sodium is 119. NT-proBNP is 1804. Hemoglobin 14.5. Assessment And Recommendations: 1.Elevated NT-proBNP. This is likely chronic heart failure. She is not in acute heart failure now, so no change in her home medications is recommended. Obtain an echo to further assess the heart fun ction. 2.Severe hyponatremia, probably due to the heart failure and this is a poor prognostic sign. Recomm end to keep the patient euvolemic and recheck the sodium. SR/MODL Voice ID: [id number] Report ID: [id number]
--- NOTE | 2022-11-03 20:48 | P.DS ---
Admission Date: 11/03/22 Discharge Date: 11/03/22 Disposition: AMA-LEFT AGAINST MEDICAL ADVIC Reason for Admission: Hyonatremia Brief History of Present Illness: Patient is a 72-year-old female presents to the ED via EMS complaints of shortness of breath and pain all over. Past medical history of diabetes, gastroesophageal reflux disease, home oxygen on 3.5 L, hypertension, hypothyroidism, and chronic pain. is at the bedside and is a good historian stating patient has a history of hyponatremia which she has tried to treat with [id number] sodium pills. Patient has not seen any specialist for this condition and has come to the ER multiple times with hyponatremia. Patient's reports confusion that started yesterday which prompted his attention to send her to the ED today. Patient's also states she has been binge drinking for the last 4 days when she ran out of hydrocodone for her chronic pain, last drink was last night. Upon arrival to the ED patient sodium was noted to be 119, creatinine 1.16, glucose 36, BNP 1804, white blood cells 14.10, EKG shows tachycardia 109, on 3 L nasal cannula satting 96%. Patient is being admitted for hyponatremia. Hospital Course: Patient arrived to the ED d/t confusion last night and was worried. Patient has a significant history of hyponatremia and has been to the ED several times but does not stay in the facility leaving AMA. Patient was admitted for hyponatremia with Na 119, and given zofran for N/V. Patient's alcohol level was 96 and reported her last drink was last night. Patient also has chronic pain and had run out of hydrocodone causing this binge drinking episode. Patient remained in the ED waiting for a floor bed and became anxious requesting to leave. This ASSOCIATE VETERINARIAN spoke with the patient explaining the ramifications of leaving without treatment could be detrimental. at bedside called again requesting to leave AMA and take his home. Her explained that this is usually how she acts coming to the ED. Another conversation explaining to the patient that leaving is a risk for and significant harm. The patient verbalized understanding and , at the bedside, agreed that she can make her own decision to leave. This ASSOCIATE VETERINARIAN asked the patient what she was going to do when she got home and patient stated she will go to bed and go to sleep. Patient's then left the room to drive the car to the entrance. Patient proved to be of sound mind, conversing appropriately and answering open ended question. Patient still wanted to leave. AMA paper was signed and patient left untreated. Vital Signs/Physical Exam: Temp Pulse Resp BP Pulse Ox 98 F 96 H 19 149/94 H 11/03/22 07:01 11/03/22 10:52 11/03/22 10:52 11/03/22 10:52 Laboratory Data at Discharge: WBC 14.10 thou/uL (4.3-10.9) H 11/03/22 07:03 Hgb 14.5 g/dL (12.0-15.0) 11/03/22 07:03 Hct 42.4 % (36.0-45.0) 11/03/22 07:03 Plt Count 322 thou/uL (152-406) 11/03/22 07:03 Sodium 119 mEq/L (136-145) L* 11/03/22 07:03 Potassium 4.1 mEq/L (3.5-5.1) 11/03/22 07:03 BUN 32 mg/dL (7-18) H 11/03/22 07:03 Creatinine 1.61 mg/dL (0.55-1.02) H 11/03/22 07:03 Glucose 36 mg/dL (74-106) L* 11/03/22 07:03 Magnesium 1.8 mg/dL (1.6-2.4) 11/03/22 07:03 Total Bilirubin 0.9 mg/dL (0.2-1.0) 11/03/22 07:03 AST 48 U/L (15-37) H 11/03/22 07:03 ALT 28 U/L (13-56) 11/03/22 07:03 Alkaline Phosphatase 92 U/L (45-117) 11/03/22 07:03 Home Medications: Cetirizine HCl [Zyrtec] 10 mg PO DAILY 05/05/21 Levothyroxine [Synthroid*] 50 mcg PO DAILY 05/05/21 Gabapentin 300 mg PO BEDTIME #30 05/12/21 Mometasone/Formoterol [Dulera 200 Mcg/5 Mcg Inhaler] 2 puff IH BID #1 inhaler 05/12/21 predniSONE [Deltasone*] 10 mg PO DAILY #70 tab 05/12/21 Hydrocodone 5/APAP 325 [[place] 5/325*] 5 - 325 mg PO Q4H PRN 06/09/22 Nitrofuran Macro [Macrobid*] 100 mg PO BID 7 Days #14 cap 06/18/22 Sodium Chloride Tab [Sodium Chloride*] 1 gm PO BID 30 Days #60 tab 06/18/22 Spironolactone [Aldactone*] 25 mg PO DAILY 30 Days #30 tab 06/18/22 Followup: Unknown,U [Primary Care Provider] -
== END 2022-11-03 13:06 | disposition left against medical advice (07) ==
LOC: ER 06:57 → ERHOLD 09:39
PROVIDERS: ADMIT Internal Medicine; ATTEND Internal Medicine
DX: E87.1 Hypo-osmolality and hyponatremia (principal); R79.89 Other specified abnormal findings of blood chemistry; R06.02 Shortness of breath; E11.9 Type 2 diabetes mellitus without complications; K21.9 Gastro-esophageal reflux disease without esophagitis; J44.1 Chronic obstructive pulmonary disease with (acute) exacerbation; E03.9 Hypothyroidism, unspecified; G89.29 Other chronic pain; I10 Essential (primary) hypertension; F32.A Depression, unspecified; Z99.81 Dependence on supplemental oxygen; Z53.29 Procedure and treatment not carried out because of patient's decision for other reasons
CPT/HCPCS: 96365; 96361; 93005; 85025; 80048; 36415; 83735; 82947; 80076; 84484; 83880; 71250; 74176; 71045; 82805; 96375; 99285; 82077; J7614; J3010; J2930; J2405 ×2; G0378

== ENCOUNTER 2022-11-05 22:51 | Observation (INO) | payer OTHER ==
--- OUTSIDE RECORDS SUMMARY | 2022-11-05 23:04 | XMS REPORT | Continuity of Care Document ---
:1950 Author Organization [facility] t Address [address] [place] [address]. [address] [place] [address] Care Team Providers Name Role Phone PCP, PATIENT DOES NOT HAVE A Primary Care Physician UnavailJennifer Barnard Attending Clinician Unavailable Adrián Richter Attending Clinician Unavailable Gaviota Goodwin Attending Clinician Unavailable Sophia Barrera Attending Clinician Unavailable RADIOLOGY Attending Clinician Unavailable Saul Cordero Attending Clinician Shonda Stout Attending Clinician SHONDA BUTTERFIELD Attending Clinician Unavailable Doctor Unassigned, [place] Attending Clinician Unavailable ELLE DUMONT Attending Clinician Unavailable Payers Payer Name Policy Type Policy Number Effective Date Expiration Date Syed vela [facility] [id number] 2020 DUAL COMP HMO D 00:00:00 SNP [facility] 53 [id number] 2020 [facility] ADVANTAGE 00:00:00 - [facility] Problems Condition Condition Condition Status Onset Resolution Last Treating Co mments Source Name Details Category Date Date Treatment Clinician Date Cerebrovas Cerebrova Problem Resolve 2021-11-20 Memoria cular scular d 03:08:35 l accident accident Enrique n (disorder) (disorder) Resolved Problem 11/20/2021 [facility] Hepatic Hepatic Problem Resolve 2021-11-20 M emoria failure failure d 03:08:35 l (disorder) (disorder) He rmann Resolved Problem 11/20/2021 [facility] Renal Renal Problem Resolve 2021-11-20 [facility] failure failure d 03:08:35 l syndrome syndrome Enrique n (disorder) (disorder) Resolved Problem 11/20/2021 [facility] Neuro Foot-drop Foot-drop Problem Active 2022-02-19 Memoria (finding) (finding) 02:19:49 l Active Bao Problem 02/19/2022 [facility] Hypothyroi Hypothyro Problem Active 2022-02-19 Memoria dism idism 02:19:49 l (disorder) (disorder) He rmann Active Problem 02/19/2022 [facility] Lumbar Lumbar Problem Active 2022-02-19 [facility] radiculopa radiculopa 02:19:49 l thy thy Bao (disorder) (disorder) Active Problem 02/19/2022 [facility] Lumbosacra Lumbosacr Problem Active 2022-02-19 Memoria l plexus al plexus 02:19:49 l neuropathy neuropathy He rmann (disorder) (disorder) Active Problem 02/19/2022 [facility] Paresthesi Paresthes Problem Active 2022-02-19 Memoria a ia 02:19:49 l (finding) (finding) Herm latricia Active Problem 02/19/2022 [facility] Transient Transient Problem Active 2022-02-19 Memoria ischemic ischemic 02:19:49 l attack attack Bao (disorder) (disorder) Active Problem 02/19/2022 [facility] Neuro,MNA Neurology [place] Acute COPD Problem Common exacerbati exacerbati Sp vesta on of COPD on - [facility] [id number] Encounter Problem Com mon for Spirit tobacco - [facility] use [facility] Medica [facility] [id number] Allergic Problem Commo n rhinitis, Spirit unspecifie - [facility]I d St seasonalit [facility] y, Medical unspecifie Center d trigger Arrhythmia Arrhythmia Problem C ommon Spirit - [facility] [id number] Cigarette Problem Comm on nicotine Spirit dependence - [facility] without St complicati [facility] Seasonal Seasonal Problem Commo n allergy allergies Spirit - [facility] Thyroid Thyroid Problem Common disease disease [facility] Irritable IBS Problem Common bowel (irritable Spirit syndrome bowel - CHI syndrome) [facility] Acquired Acquired Problem Commo n hypothyroi hypothyroi Sp vesta dism dism [facility] [id number] Neuropathy Problem Co mmon [facility] [id number] Supplement Problem C ommon 07 al oxygen Spirit dependent [facility] [id number] Coronary Problem Comm on artery Spirit disease - [facility] involving [facility] coronary Medical artery Center without angina pectoris, unspecifie d whether [place] or transplant ed heart Depression Depression Problem C ommon [facility] Hypertensi HTN Problem Commo n on (hypertens Spirit ion) [facility] Chronic CKD Problem Common kidney (chronic Spirit disease kidney - [facility] stage 4 disease), stage IV [facility] Psoriasis Psoriasis Problem Com mon [facility] [id number] Prediabete Problem Co mmon s [facility] Chronic Chronic Problem Common fatigue fatigue [facility] syndrome [facility] [id number] Peripheral Problem Co mmon arterial Spirit disease [facility] [id number] History of Problem Co mmon ASCVD [facility] Hyponatrem Hyponatrem Problem C ommon ia ia [facility] [id number] SIADH Problem Common (syndrome Spirit of - CHI inappropri [facility] production Medica l ) Center [id number] Peripheral Problem Co mmon vascular Spirit disease, - [facility] unspecifie [facility] COPD - COPD Problem Common Chronic (chronic Spirit obstructiv obstructiv - CHI e e St pulmonary pulmonary [place] s disease disease) Medical Center Anxiety Anxiety Problem Common [facility] Osteoporos Osteoporos Problem C ommon is is Spirit [facility] [id number] Unsteady Problem Commo n gait when Spirit walking [facility] [id number] Obesity, Problem Comm on morbid, Spirit BMI - [facility] 40.0-49.9 [facility] [id number] Fatty Problem Common liver [facility] [id number] 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 [facility] [id number] Primary Problem Common insomnia Spirit - [facility] No known No known Disease Unive rs active active ity of problems problems [facility] Allergies, Adverse Reactions, Alerts Allergy Allergy Status Severity Reaction(s) Onset Inactive Treating Comm ents Source Name Type Date Date Clinician NO KNOWN Drug Active Univers ALLERGIE Class ity of S [facility] Pollen Pollen Active Micky Gore Social History Social Habit Start Date Stop Date Quantity Comments Source History of Current Smoker [facility] rit - Tobacco Use [facility] Sex Assigned At Common Sp vesta - [facility] History SDOH University o f Alcohol Std [place] [facility] History SDOH University o f Alcohol Binge [place] [facility] Exposure to Not sure [facility] SARS-CoV-2 [facility] (event) Branch Tobacco use and 2020-10-14 2020-10-14 Never used Universit y of exposure 00:00:00 00:00:00 [facility] Alcohol intake 2020-10-14 2020-10-14 Lifetime University of 00:00:00 00:00:00 non-drinker [facility] (finding) Branch History SDOH 2020-10-14 2020-10-14 1 University o f Alcohol Frequency 00:00:00 00:00:00 [facility] edical Branch Smoking Status Start Date Stop Date Source Unknown if ever smoked Universit y of [facility] Tobacco smoking status 2021-11-17 21:01:03 Michelle Gore Never smoker [facility] Medications Ordered Filled Start Stop [...] cap, PO, l oral 19:16: Bedtime, # [place] capsule 00 30 cap, 3 Refill(s), Pharmacy: [...] Pharmacy: [id number] Albuterol Albuterol 0 No 2{puffs Albuterol Sulfate [...] Base) MCG/ACT MCG/ACT MCG/ACT Cefdinir Cefdinir 2021-0 2- No 1{capsu BID Cefdinir 300 MG 300 MG 820 le} 300 MG 00:00: 00:00 00 :00 Cefdinir Cefdinir 2021-0 2- No 1{capsu BID Cefdinir 300 MG 300 MG 820 le} 300 MG 00:00: 00:00 00 :00 Cefdinir Cefdinir 2-0 2- No 1{capsu BID Cefdinir 300 MG 300 MG 810-21 le} 300 MG 00:00: 00:00 00 :00 DULoxetine 2-0 Yes 60 mg = 1 Me moria 60 mg oral 7-15 cap, PO, l delayed 15:11: Daily, # Enrique n release 00 30 cap, 3 capsule Refill(s), Pharmacy: [facility][id number] gabapentin 2-0 Yes 600 mg = 2 M emoria 300 mg oral 7-15 cap, PO, l capsule 15:11: TID, # 180 Herm latricia 00 cap, 2 Refill(s), Pharmacy: [facility][id number] gabapentin 2-0 Yes 600 mg = 2 M emoria 300 mg oral 7-15 cap, PO, l capsule 15:11: TID, # 180 Herm latricia 00 cap, 2 Refill(s), Pharmacy: [facility][id number] DULoxetine 2-0 Yes 60 mg = 1 Me moria 60 mg oral 7-15 cap, PO, l delayed 15:11: Daily, # Enrique n release 00 30 cap, 3 capsule Refill(s), Pharmacy: [facility][id number] DULoxetine 2-0 Yes 60 mg = 1 Me moria 60 mg oral 7-15 cap, PO, l delayed 15:11: Daily, # Enrique n release 00 30 cap, 3 capsule Refill(s), Pharmacy: [facility][id number] gabapentin 2-0 Yes 600 mg = 2 M emoria 300 mg oral 7-15 cap, PO, l capsule 15:11: TID, # 180 Herm latricia 00 cap, 2 Refill(s), Pharmacy: [id number] gabapentin 2-0 Yes 600 mg = 2 M emoria 300 mg oral 7-15 cap, PO, l capsule 15:11: TID, # 180 Herm latricia 00 cap, 2 Refill(s), Pharmacy: [id number] DULoxetine 2-0 Yes 60 mg = 1 Me moria 60 mg oral 7-15 cap, PO, l delayed 15:11: Daily, # Enrique n release 00 30 cap, 3 capsule Refill(s), Pharmacy: [facility][id number] DULoxetine 2-0 Yes 60 mg = 1 Me moria 60 mg oral 7-15 cap, PO, l delayed 15:11: Daily, # Enrique n release 00 30 cap, 3 capsule Refill(s), Pharmacy: [facility][id number] gabapentin 2-0 Yes 600 mg = 2 [...] 2022-0 No 3{ml_as QID Ipratropiu -Albuterol -Albuterol 7 _needed m-Albutero 0.5-2.5 (3) 0.5-2.5 (3) 00:00: } l 0.5-2.5 MG/3ML MG/3ML 00 (3) MG/3ML Doxycycline Doxycycline 2021- No 1{capsu BID Doxycyclin Hyclate 100 Hyclate 100 09-12 le} e Hyclate MG MG 00:00: 00:00 100 MG 00 :00 Doxycycline Doxycycline 0 2021- No 1{capsu BID Doxycyclin Hyclate 100 Hyclate 100 09-12 le} e Hyclate MG MG 00:00: 00:00 100 MG 00 :00 Doxycycline Doxycycline 2021- No 1{capsu BID Doxycyclin Hyclate 100 Hyclate 100 09-12 le} e Hyclate MG MG 00:00: 00:00 100 MG 00 :00 Azithromyci Azithromyci 0 2- No QD Azithromyc n 250 MG n 250 MG 09-12 in 250 MG 00:00: 00:00 00 :00 predniSONE predniSONE 2021-2021- No QD predniSONE 20 MG 20 MG 09-12 20 MG 00:00: 00:00 00 :00 Azithromyci Azithromyci 2021-0 2- No QD Azithromyc n 250 MG n 250 MG 09-12 in 250 MG 00:00: 00:00 00 :00 predniSONE predniSONE 2021-0 2022- No QD predniSONE 20 MG 20 MG 09-12 20 MG 00:00: 00:00 00 :00 Benzonatate Benzonatate 2021-0 2- No 1{capsu TID Benzonatat 200 MG 200 MG 08-23 le_as_n e 200 MG 00:00: 00:00 eeded} 00 :00 Benzonatate Benzonatate 2021-0 2- No 1{capsu TID Benzonatat 200 MG 200 MG 08-23 le_as_n e 200 MG 00:00: 00:00 eeded} 00 :00 Cefdinir Cefdinir 2-0 2- No 1{capsu BID Cefdinir 300 MG 300 MG 08-22 le} 300 MG 00:00: 00:00 00 :00 Cefdinir Cefdinir 2022-0 2- No 1{capsu BID Cefdinir 300 MG 300 MG 08-22 le} 300 MG 00:00: 00:00 00 :00 gabapentin 2-0 No 600 mg = 2 M emoria 300 mg oral 5-21 cap, PO, l capsule 00:37: BID, # 120 Herm latricia 00 cap, 0 Refill(s), Pharmacy: [facility][id number] gabapentin 2022-0 No 600 mg = 2 M emoria 300 mg oral 5-21 cap, PO, l capsule 00:37: BID, # 120 Herm latricia 00 cap, 0 Refill(s), Pharmacy: [facility][id number] gabapentin 2-0 No 600 mg = 2 M emoria 300 mg oral 5-21 cap, PO, l capsule 00:37: BID, # 120 Herm latricia 00 cap, 0 Refill(s), Pharmacy: [facility][id number] gabapentin 2022-0 No 600 mg = 2 M emoria 300 mg oral 5-21 cap, PO, l capsule 00:37: BID, # 120 Herm latricia 00 cap, 0 Refill(s), Pharmacy: [facility][id number] gabapentin 2022-0 No 600 mg = 2 M emoria [...] MCG/ACT MCG/ACT 00:00: MCG/ACT 00 Gabapentin Gabapentin 2-0 No 1{table TID Gabapentin 800 MG 800 MG 4-27 t} 800 MG 00:00: 00 Symbicort Symbicort 2021-0 No 2{puffs BID Symbicort 160-4.5 160-4.5 4-27 } 160-4.5 MCG/ACT MCG/ACT 00:00: MCG/ACT 00 Gabapentin Gabapentin 2-0 No 1{table TID Gabapentin 800 MG 800 MG 4-27 t} 800 MG 00:00: 00 Symbicort Symbicort 2021-0 No 2{puffs BID Symbicort 160-4.5 160-4.5 4-27 } 160-4.5 MCG/ACT MCG/ACT 00:00: MCG/ACT 00 Gabapentin Gabapentin 2-0 No 1{table TID Gabapentin 800 MG 800 MG 4-27 t} 800 MG 00:00: 00 Gabapentin Gabapentin 2022-0 No 1{table TID Gabapentin 800 MG 800 MG 4-27 t} 800 MG 00:00: 00 Symbicort Symbicort 2021-0 No 2{puffs BID Symbicort 160-4.5 160-4.5 4-27 } 160-4.5 MCG/ACT MCG/ACT 00:00: MCG/ACT 00 Gabapentin Gabapentin 2022-0 No 1{table TID Gabapentin 800 MG 800 MG 4-27 t} 800 MG 00:00: 00 Symbicort Symbicort 2-0 No 2{puffs BID Symbicort 160-4.5 160-4.5 4-27 } 160-4.5 MCG/ACT MCG/ACT 00:00: MCG/ACT 00 Gabapentin Gabapentin 2-0 No 1{table TID Gabapentin 800 MG 800 MG 4-27 t} 800 MG 00:00: 00 Symbicort Symbicort 2022-0 No 2{puffs BID Symbicort 160-4.5 160-4.5 -27 } 160-4.5 MCG/ACT MCG/ACT 00:00: MCG/ACT 00 Gabapentin Gabapentin 2022-0 No 1{table TID Gabapentin 800 MG 800 MG 4-27 t} 800 MG 00:00: 00 Symbicort Symbicort 2022-0 No 2{puffs BID Symbicort 160-4.5 160-4.5 4-27 } 160-4.5 MCG/ACT MCG/ACT 00:00: MCG/ACT 00 Gabapentin Gabapentin 2022-0 No 1{table TID Gabapentin 800 MG 800 MG -27 t} 800 MG 00:00: 00 Gabapentin Gabapentin 2022-0 No 1{table TID Gabapentin 800 MG 800 MG -27 t} 800 MG 00:00: 00 Gabapentin Gabapentin 2022-0 No 1{table TID Gabapentin 800 MG 800 MG - t} 800 MG 00:00: 00 Gabapentin Gabapentin 2022-0 No 1{table TID Gabapentin 800 MG 800 MG -27 t} 800 MG 00:00: 00 Gabapentin Gabapentin [...] 800 MG 00:00: 00 Symbicort Symbicort 2022-0 2023- No 2{puffs BID [...] No 2{puffs BID Symbicort 160-4.5 160-4.5 06-28 -12 } 160-4.5 MCG/ACT MCG/ACT 00:00: 00:00 MCG/ACT 00 :00 Symbicort Symbicort 2022- No 2{puffs BID Symbicort 160-4.5 160-4.5 4-27 - } 160-4.5 MCG/ACT MCG/ACT 00:00: 00:00 MCG/ACT 00 :00 Symbicort Symbicort 2022- No 2{puffs BID Symbicort 160-4.5 160-4.5 4-27 - } 160-4.5 MCG/ACT MCG/ACT 00:00: 00:00 MCG/ACT 00 :00 Symbicort Symbicort 2022- No 2{puffs BID Symbicort 160-4.5 160-4.5 4-27 04-09 } 160-4.5 MCG/ACT MCG/ACT 00:00: 00:00 MCG/ACT 00 :00 Symbicort Symbicort 2021- No 2{puffs BID Symbicort 160-4.5 160-4.5 4-27 24 } 160-4.5 MCG/ACT MCG/ACT 00:00: 00:00 MCG/ACT 00 :00 Symbicort Symbicort 2021- No 2{puffs BID Symbicort 160-4.5 160-4.5 -27 24 } 160-4.5 MCG/ACT MCG/ACT 00:00: 00:00 MCG/ACT 00 :00 Symbicort Symbicort 2021- No 2{puffs BID Symbicort 160-4.5 160-4.5 4-27 24 } 160-4.5 MCG/ACT MCG/ACT 00:00: 00:00 MCG/ACT 00 :00 Symbicort Symbicort 2021- No 2{puffs BID Symbicort 160-4.5 160-4.5 4-27 24 } 160-4.5 MCG/ACT MCG/ACT 00:00: 00:00 MCG/ACT [...] 2- No 2{puffs BID Symbicort 160-4.5 160-4.5 -27 10-24 } 160-4.5 MCG/ACT MCG/ACT 00:00: 00:00 [...] 00:00: 00:00 MCG/ACT 00 :00 Symbicort Symbicort 2021-0 2- No 2{puffs BID Symbicort 160-4.5 160-4.5 4-27 10-24 } 160-4.5 MCG/ACT MCG/ACT 00:00: 00:00 MCG/ACT 00 :00 Symbicort Symbicort 2- No 2{puffs BID Symbicort 160-4.5 160-4.5 06-2824 } 160-4.5 MCG/ACT MCG/ACT 00:00: 00:00 MCG/ACT 00 :00 Symbicort Symbicort 2021-0 2- No 2{puffs BID Symbicort 160-4.5 160-4.5 06-2824 } 160-4.5 MCG/ACT MCG/ACT 00:00: 00:00 MCG/ACT 00 :00 Benzonatate Benzonatate 2021-0 2- No 1{capsu Benzonatat 200 MG 200 MG 06-0114 le_as_n e 200 MG 00:00: 00:00 eeded} 00 :00 Benzonatate Benzonatate 2021-0 2- No 1{capsu Benzonatat 200 MG 200 MG 06-0114 le_as_n e 200 MG 00:00: 00:00 eeded} 00 :00 Benzonatate Benzonatate 2021-0 2- No 1{capsu Benzonatat 200 MG 200 MG 06-01 le_as_n e 200 MG 00:00: 00:00 eeded} 00 :00 Benzonatate Benzonatate 2021-0 2- No 1{capsu Benzonatat 200 MG 200 MG 06-01-14 le_as_n e 200 MG 00:00: 00:00 eeded} 00 :00 Cefdinir Cefdinir 2021-0 2- No Cefdinir 300 MG 300 MG - 04-10 300 MG 00:00: 00:00 00 :00 Cefdinir Cefdinir 2021-0 2- No Cefdinir 300 MG 300 MG 3- 04-10 300 MG 00:00: 00:00 00 :00 Cefdinir Cefdinir 2-0 2- No Cefdinir 300 MG 300 MG 3- 04-10 300 MG 00:00: 00:00 00 :00 Cefdinir Cefdinir 2-0 2- No Cefdinir 300 MG 300 MG 3- 04-10 300 MG 00:00: 00:00 00 :00 albuterol 2-0 Yes 0 Memoria 0.083% 2-24 Refill(s) l inhalation 17:47: [place] solution 00 trazodone 0 Yes 50 mg = 1 Mem oria 50 mg oral 2-24 tab, PO, l tablet 17:47: Bedtime, # [place] nn 00 30 tab, 1 Refill(s) Trelegy Yes = 1 Memoria Ellipta 100 2-24 inhalation l mcg-62.5 17:47: , [place] mcg-25 00 INHALATION mcg/inh , Daily, # [...] mg oral 2-24 Refill(s) l delayed 17:47: [place] release 00 capsule Trazodone 0 Yes 50 mg = 1 Mem oria Hydrochlori 2-24 tab, PO, l de 50 MG 17:47: Bedtime, # Her ver[place] Oral Tablet 00 30 tab, 1 Refill(s) Metoprolol Yes 0 Memoria Tartrate 25 2-24 Refill(s) l mg oral 17:47: [place] tablet 00 Albuterol 0 Yes 0 Memoria 0.83 MG/ML 2-24 Refill(s) l Inhalant 17:47: [place] Solution 00 DULoxetine 0 Yes 0 Memoria 60 mg oral 2-24 Refill(s) l delayed 17:47: [place] release 00 capsule Trazodone 0 Yes 50 mg = 1 Mem oria Hydrochlori 2-24 tab, PO, l de 50 MG 17:47: Bedtime, # [place] Oral Tablet 00 30 tab, 1 Refill(s) Trelegy 0 Yes = 1 Memoria Ellipta 100 2-24 inhalation l mcg-62.5 17:47: , [place] mcg-25 00 INHALATION mcg/inh , Daily, # inhalation 1 ea, 0 powder Refill(s) Metoprolol Yes 0 Memoria Tartrate 25 2-24 Refill(s) l mg oral 17:47: [place] tablet 00 levothyroxi Yes 0 Memori a ne 50 mcg 2-24 Refill(s) l (0.05 mg) 17:47: [place] oral tablet 00 Albuterol Yes 0 Memoria 0.83 MG/ML 2-24 Refill(s) l Inhalant 17:47: [place] Solution 00 DULoxetine Yes 0 Memoria 60 mg oral 2-24 Refill(s) l delayed 17:47: [place] release 00 capsule Trazodone Yes 50 mg = 1 Mem oria Hydrochlori 2-24 tab, PO, l de 50 MG 17:47: Bedtime, # [place] Oral Tablet 00 30 tab, 1 Refill(s) Metoprolol Yes 0 Memoria Tartrate 25 2-24 Refill(s) l mg oral 17:47: [place] tablet albuterol Yes 0 Memoria 0.083% 2-24 Refill(s) l inhalation 17:47: [place] solution trazodone Yes 50 mg = 1 Mem [...] 25 2-24 Refill(s) l mg oral 17:47: [place] tablet 00 levothyroxi Yes 0 Memori a ne 50 mcg 2-24 Refill(s) l (0.05 mg) 17:47: [place] oral tablet 00 Albuterol Yes 0 Memoria 0.83 MG/ML 2-24 Refill(s) l Inhalant 17:47: [place] Solution 00 DULoxetine Yes 0 Memoria 60 mg oral 2-24 Refill(s) l delayed 17:47: [place] release 00 capsule Trazodone Yes 50 mg = 1 Mem oria Hydrochlori 2-24 tab, PO, l de 50 MG 17:47: Bedtime, # [place] Oral Tablet 00 30 tab, 1 Refill(s) Metoprolol 0 Yes 0 Memoria Tartrate 25 2-24 Refill(s) l mg oral 17:47: [place] tablet 00 albuterol Yes 0 Memoria 0.083% 2-24 Refill(s) l inhalation 17:47: [place] solution 00 trazodone Yes 50 mg = 1 Mem oria 50 mg oral 2-24 tab, PO, l tablet 17:47: Bedtime, # [place] nn 00 30 tab, 1 Refill(s) Trelegy 0 Yes = 1 Memoria Ellipta 100 2-24 inhalation l mcg-62.5 17:47: , [place] mcg-25 00 INHALATION mcg/inh , Daily, # inhalation 1 ea, 0 powder Refill(s) Metoprolol 0 Yes 0 Memoria Tartrate 25 2-24 Refill(s) l mg oral 17:47: [place] tablet 00 levothyroxi 0 Yes 0 Memori a ne 50 mcg 2-24 Refill(s) l (0.05 mg) 17:47: [place] oral tablet 00 albuterol Yes 0 Memoria 0.083% 2-24 Refill(s) l inhalation 17:47: [place] solution 00 trazodone Yes 50 mg = 1 Mem oria 50 mg oral 2-24 tab, PO, l tablet 17:47: Bedtime, # [place] nn 00 30 tab, 1 Refill(s) Trelegy 0 Yes = 1 Memoria Ellipta 100 2-24 inhalation l mcg-62.5 17:47: , [place] mcg-25 00 INHALATION mcg/inh , Daily, # inhalation 1 ea, 0 powder Refill(s) Metoprolol 0 Yes 0 Memoria Tartrate 25 2-24 Refill(s) l mg oral 17:47: [place] tablet 00 levothyroxi 0 Yes 0 Memori a ne 50 mcg 2-24 Refill(s) l (0.05 mg) 17:47: [place] oral tablet 00 Albuterol Yes 0 Memoria [...] l mg oral 17:47: [place] tablet 00 ipratropium Yes 0 Memori a 0.02% 2-24 Refill(s) l inhalation 17:46: [place] solution 00 gabapentin 0 Yes 600 mg = 2 M emoria 300 MG Oral 2-24 cap, 0 l Capsule 17:46: Refill(s) Yanira nn Ipratropium 0 Yes 0 Memori a [place] 0.2 2-24 Refill(s) l MG/ML 17:46: [place] Inhalant 00 Solution ipratropium 2021-0 Yes 0 Memori a 0.02% 2-24 Refill(s) l inhalation 17:46: [place] solution 00 gabapentin 2021-0 Yes 600 mg = 2 M emoria 300 MG Oral 2-24 cap, 0 l Capsule 17:46: Refill(s) Yanira nn Ipratropium 2021-0 Yes 0 Memori a [place] 0.2 2-24 Refill(s) l MG/ML 17:46: [place] Inhalant 00 Solution gabapentin 2021-0 Yes 600 mg = 2 M emoria 300 MG Oral 2-24 cap, 0 l Capsule 17:46: Refill(s) [place] nn 00 Ipratropium 2021-0 Yes 0 Memori a [place] 0.2 2-24 Refill(s) l MG/ML 17:46: [place] Inhalant 00 Solution gabapentin 2021-0 Yes 600 mg = 2 M emoria 300 MG Oral 2-24 cap, 0 l Capsule 17:46: Refill(s) [place] nn 00 Ipratropium 2-0 Yes 0 Memori a [place] 0.2 2-24 Refill(s) l MG/ML 17:46: [place] Inhalant 00 Solution ipratropium 2-0 Yes 0 Memori a 0.02% 2-24 Refill(s) l inhalation 17:46: [place] solution 00 gabapentin 2021-0 Yes 600 mg = 2 M emoria 300 MG Oral 2-24 cap, 0 l Capsule 17:46: Refill(s) [place] nn 00 Ipratropium 2022-0 Yes 0 Memori a [place] 0.2 2-24 Refill(s) l MG/ML 17:46: [place] Inhalant 00 Solution ipratropium 2-0 Yes 0 Memori a 0.02% 2-24 Refill(s) l inhalation 17:46: [place] solution 00 traZODone traZODone 2021-0 No QD traZODone [...] 00:00: 00 traZODone traZODone 2-0 No QD HCl 50 MG HCl 50 MG 1-14 00:00: 00 traZODone traZODone 2-0 No QD traZODone HCl 50 MG HCl 50 MG 1-14 HCl 50 MG 00:00: 00 traZODone traZODone 2-0 No QD HCl 50 MG HCl 50 MG 1-14 00:00: 00 traZODone traZODone 2-0 No QD [...] 00:00 _food} 00 :00 triamcinolo 2020- No [id number] 40mg Univers ne 10-14 ity of acetonide 17:00: 15:50 [place] (KE[place]LOG) 00 :00 Medical injection Branch 40 mg triamcinolo 2020- No [id number] 40mg Univers ne 10-14 ity of acetonide 17:00: 15:49 [place] (KENALOG) 00 :00 Medical injection Branch 40 mg triamcinolo 2020- No [id number] 40mg 40 mg, Univers ne 10-14 Intramuscu ity of acetonide 17:00: 15:49 [place], [place] 00 :00 1 dose, Medical injection Fri Branch 40 mg 10/14/20 at 1200, Routine triamcinolo 2020- No [id number] 40mg 40 mg, Univers ne 10-14 Intramuscu ity of acetonide 17:00: 15:50 [place]CE, [place] 00 :00 1 dose, Medical injection Fri Branch 40 mg 10/14/20 at 1200, Routine triamcinolo 2020- No [id number] 40mg Univers ne 10-14 ity of acetonide 17:00: 15:50 [place] (KENALOG) 00 :00 Medical injection Branch 40 mg triamcinolo 2020- No [id number] 40mg Univers ne 10-14 ity of acetonide 17:00: 15:49 [place] (KE[place]LOG) 00 :00 Medical injection Branch 40 mg triamcinolo 2020- No [id number] 40mg 40 mg, Univers ne 10-14 Intramuscu ity of acetonide 17:00: 15:49 [place], ONCE, [place] 00 :00 1 dose, Medical injection Fri Branch 40 mg 10/14/20 at 1200, Routine triamcinolo 0 2020- No [id number] 40mg 40 mg, Univers ne 10-14 Intramuscu [...] 00:00: [place] mcg DsDv Medical Branch gabapentin 0 Yes Univers 300 [...] Cetirizine HCl 10 MG HCl 10 MG 6- t} HCl 10 MG 00:00: 00 DULoxetine 2020-0 Yes Univers 60 mg 6-07 ity of capsule 00:00: [place] [facility] atorvastati 2020-0 Yes Univer s n 40 mg 6-07 ity of tablet 00:00: [place] [facility] levothyroxi 2020-0 Yes Univer s ne 50 mcg 6-07 ity of tablet 00:00: [place] [id number] Medical Branch DULoxetine 2020-0 Yes Univers 60 mg 6-07 ity of capsule 00:00: [place] [address] Medical Branch atorvastati 2020-0 Yes Univer s n 40 mg 6-07 ity of tablet 00:00: [place] [address] Medical Branch levothyroxi 2020-0 Yes Univer s ne 50 mcg 6-07 ity of tablet 00:00: [place] [address] Medical Branch DULoxetine 2020-0 Yes Univers 60 mg 6-07 ity of capsule 00:00: [place] [address] Medical Branch atorvastati 2020-0 Yes Univer s n 40 mg 6-07 ity of tablet 00:00: [place] [id number] [facility] levothyroxi 2020-0 Yes [facility] ne 50 mcg 6-07 ity of tablet 00:00: [place] [id number] [facility] DULoxetine 2020-0 Yes [facility] 60 mg 6-07 ity of capsule 00:00: [place] [id number] [facility] atorvastati 2020-0 Yes [facility] n 40 mg 6-07 ity of tablet 00:00: [place] [id number] [facility] levothyroxi 2020-0 Yes [facility] ne 50 mcg 6-07 ity of tablet 00:00: [place] [id number] [facility] DULoxetine 2020-0 Yes [facility] 60 mg 6-07 ity of capsule 00:00: [place] [id number] [facility] atorvastati 2020-0 Yes [facility] n 40 mg 6-07 ity of tablet 00:00: [place] [id number] [facility] levothyroxi 2020-0 Yes [facility] ne 50 mcg 6-07 ity of tablet 00:00: [place] [id number] [facility] lisinopriL 2020-0 Yes [facility] 20 mg 6-05 ity of tablet 00:00: [place] [id number] [facility] potassium 2020-0 Yes [facility] chloride 10 6-05 ity of mEq CR 00:00: [place] tablet 00 [facility] lisinopriL 0 Yes [facility] 20 mg 6-05 ity of tablet 00:00: [place] 00 [facility] potassium 2020-0 Yes [facility] chloride 10 6-05 ity of mEq CR 00:00: [place] tablet 00 [facility] lisinopriL 2020-0 Yes [facility] 20 mg 6-05 ity of tablet 00:00: [place] [facility] potassium 2020-0 Yes [facility] chloride 10 6-05 ity of mEq CR 00:00: [place] tablet [facility] lisinopriL 2020-0 Yes [facility] 20 mg 6-05 ity of tablet 00:00: [place] 00 [facility] potassium 2020-0 Yes [facility] chloride 10 6-05 ity of mEq CR 00:00: [place] tablet [facility] lisinopriL 0 Yes [facility] 20 mg 6-05 ity of tablet 00:00: [place] [facility] potassium 2020-0 Yes [facility] chloride 10 6-05 ity of mEq CR 00:00: [place] tablet [facility] Macrobid Macrobid 2020-0 2020- No Na Barrera 1 capsule Common 08-05 with food Spirit 00:00: 00:00 - [facility] :00 [facility] Oxygen- Oxygen- 2020-0 No Oxygen- Portable [...] pirit one) one) 00:00: - [facility] 00 [facility] Montelukast Montelukast 2019-0 No 1{table QD Montelukas Sodium 10 Sodium 10 7-01 t} t Sodium MG MG 00:00: 10 MG 00 Kenalog Kenalog 2019-0 No 40mg Common (Triamcinol (Triamcinol 7-01 S pirit one) one) 00:00: - [facility] 00 [facility] Montelukast Montelukast 2019-0 No 1{table QD Montelukas Sodium 10 Sodium 10 7-01 t} t Sodium MG MG 00:00: 10 MG 00 Kenalog Kenalog 2019-0 No 40mg Common (Triamcinol (Triamcinol 7-01 S pirit one) one) 00:00: - [facility] 00 [facility] Montelukast Montelukast 2019-0 No 1{table QD Montelukas Sodium 10 Sodium 10 7-01 t} t Sodium MG MG 00:00: 10 MG 00 Kenalog Kenalog 2019-0 No 40mg Common (Triamcinol (Triamcinol 7-01 S pirit one) one) 00:00: - [facility] 00 [facility] Montekast Montekast 2019-0 No 1{table QD Montelukas Sodium 10 Sodium 10 7-01 t} t Sodium MG MG 00:00: 10 MG 00 Kenalog Kenalog 2019-0 No 40mg Common (Triamcinol (Triamcinol 7-01 S pirit one) one) 00:00: - [facility] 00 [facility] Montekast Montekast 2019-0 No 1{table QD Montelukas Sodium 10 Sodium 10 7-01 t} t Sodium MG MG 00:00: 10 MG 00 Kenalog Kenalog 2019-0 No 40mg Common (Triamcinol (Triamcinol 7-01 S pirit one) one) 00:00: - [facility] 00 [facility] Monte[facility]ast [facility]-0 No 1{table QD Montelukas Sodium 10 Sodium 10 7-01 t} t Sodium MG MG 00:00: 10 MG 00 Kenalog Kenalog 2019-0 No 40mg Common (Triamcinol (Triamcinol 7-01 S pirit one) one) 00:00: - [facility] 00 [facility] No 1{table QD Montelukas Sodium 10 Sodium 10 7-01 t} t Sodium MG MG 00:00: 10 MG 00 Kenalog Kenalog 2019-0 No 40mg Common (Triamcinol (Triamcinol 7-01 S pirit one) one) 00:00: - [facility] 00 [facility] Montekast Montekast 2019-0 No 1{table QD Montelukas Sodium 10 Sodium 10 7-01 t} t Sodium MG MG 00:00: 10 MG 00 Kenalog Kenalog 2019-0 No 40mg Common (Triamcinol (Triamcinol 7-01 S pirit one) one) 00:00: - [facility] 00 [facility] Montekast Montekast 2019-0 No 1{table QD Montelukas Sodium 10 Sodium 10 7-01 t} t Sodium MG MG 00:00: 10 MG 00 Kenalog Kenalog 2019-0 No 40mg Common (Triamcinol (Triamcinol 7-01 S pirit one) one) 00:00: - [facility] 00 [facility] Montelukast Montelukast 2019-0 No 1{table QD Montelukas Sodium 10 Sodium 10 7- t} t Sodium MG MG 00:00: 10 MG 00 Kenalog Kenalog 2019-0 No 40mg Common (Triamcinol (Triamcinol 7-01 S pirit one) one) 00:00: - [facility] 00 [facility] Kenalog Kenalog 2019-0 No 40mg Common (Triamcinol (Triamcinol 7-01 S pirit one) one) 00:00: - [facility] 00 [facility] Kenalog Kenalog 2019-0 No 40mg Common (Triamcinol (Triamcinol 7-01 S pirit one) one) 00:00: - [facility] 00 [facility] Kenalog Kenalog 2019-0 No 40mg Common (Triamcinol (Triamcinol 7-01 S pirit one) one) 00:00: - [facility] 00 [facility] Montelukast Montelukast 2019-0 No 1{table QD Montelukas Sodium 10 Sodium 10 7- t} t Sodium MG MG 00:00: 10 MG 00 Kenalog Kenalog 2019-0 No 40mg Common (Triamcinol (Triamcinol 7-01 S pirit one) one) 00:00: - [facility] 00 [facility] Kenalog Kenalog 2019-0 No 40mg Common (Triamcinol (Triamcinol 7-01 S pirit one) one) 00:00: - [facility] 00 [facility] Kenalog Kenalog 2019-0 No 40mg Common (Triamcinol (Triamcinol 7-01 S pirit one) one) 00:00: - [facility] 00 [facility] Kenalog Kenalog 2019-0 No 40mg Common (Triamcinol (Triamcinol 7-01 S pirit one) one) 00:00: - [facility] 00 [facility] Kenalog Kenalog 2019-0 No 40mg Common (Triamcinol (Triamcinol 7-01 S pirit one) one) 00:00: - [facility] 00 [facility] Everalog Kenalog 2019-0 No 40mg Common (Triamcinol (Triamcinol 7-01 S pirit one) one) 00:00: - [facility] 00 [facility] Kenalog Kenalog 2019-0 No 40mg Common (Triamcinol (Triamcinol 7-01 S pirit one) one) 00:00: - [facility] 00 [facility] Kenalog Kenalog 2019-0 No 40mg Common (Triamcinol (Triamcinol 7-01 S pirit one) one) 00:00: - [facility] 00 [facility] Montelukast Montelukast 2019-0 No 1{table QD Montelukas Sodium 10 Sodium 10 7-01 t} t Sodium MG MG 00:00: 10 MG 00 Kenalog Kenalog 2019-0 No 40mg Common (Triamcinol (Triamcinol 7-01 S pirit one) one) 00:00: - [facility] 00 [facility] Kenalog Kenalog 2019-0 No 40mg Common (Triamcinol (Triamcinol 7-01 S pirit one) one) 00:00: - [facility] 00 [facility] Montelukast Montelukast 2019-0 No 1{table QD [...] pirit one) one) 00:00: - [facility] 00 [facility] Montelukast Montelukast 2019-0 No 1{table QD Montelukas Sodium 10 Sodium 10 7-01 t} t Sodium MG MG 00:00: 10 MG 00 Kenalog Kenalog 2019-0 No 40mg Common (Triamcinol (Triamcinol 7-01 S pirit one) one) 00:00: - [facility] 00 [facility] Montelukast Montelukast 2019-0 No 1{table QD Montelukas Sodium 10 Sodium 10 7-01 t} t Sodium MG MG 00:00: 10 MG 00 Kenalog Kenalog 2019-0 No 40mg Common (Triamcinol (Triamcinol 7-01 S pirit one) one) 00:00: - [facility] 00 [facility] Montelukast Montelukast 2019-0 No 1{table QD Montelukas Sodium 10 Sodium 10 7-01 t} t Sodium MG MG 00:00: 10 MG 00 Kenalog Kenalog 2019-0 No 40mg Common (Triamcinol (Triamcinol 7-01 S pirit one) one) 00:00: - [facility] 00 [facility] Montekast Montelukast 2019-0 No 1{table QD Montelukas Sodium 10 Sodium 10 7-01 t} t Sodium MG MG 00:00: 10 MG 00 Kenalog Kenalog 2019-0 No 40mg Common (Triamcinol (Triamcinol 7-01 S pirit one) one) 00:00: - [facility] 00 [facility] Monte[place]ast Montelukast 2019-0 No 1{table QD Montelukas Sodium 10 Sodium 10 7-01 t} t Sodium MG MG 00:00: 10 MG 00 Kenalog Kenalog 2019-0 No 40mg Common (Triamcinol (Triamcinol 7-01 S pirit one) one) 00:00: - [facility] 00 [facility] Monte[place]ast Montelukast 2019-0 No 1{table QD Montelukas Sodium 10 Sodium 10 7-01 t} t Sodium MG MG 00:00: 10 MG 00 Kenalog Kenalog 2019-0 No 40mg Common (Triamcinol (Triamcinol 7-01 S pirit one) one) 00:00: - [facility] 00 [facility] Monte[place] Montelukast 2019-0 No 1{table QD Montelukas Sodium 10 Sodium 10 7-01 t} t Sodium MG MG 00:00: 10 MG 00 Kenalog Kenalog 2019-0 No 40mg Common (Triamcinol (Triamcinol 7-01 S pirit one) one) 00:00: - [facility] 00 [facility] Monte[place]ast Montelukast 2019-0 No 1{table QD Montelukas Sodium 10 Sodium 10 7-01 t} t Sodium MG MG 00:00: 10 MG 00 Kenalog Kenalog 2019-0 No 40mg Common (Triamcinol (Triamcinol 7-01 S pirit one) one) 00:00: - [facility] 00 [facility] Montelukast Montelukast 2019-0 No 1{table QD Montelukas Sodium 10 Sodium 10 7-01 t} t Sodium MG MG 00:00: 10 MG 00 Kenalog Kenalog 2019-0 No 40mg Common (Triamcinol (Triamcinol 7-01 S pirit one) one) 00:00: - [facility] 00 [facility] [place] Montelukast 2019-0 No 1{table QD Montelukas Sodium 10 Sodium 10 7-01 t} t Sodium MG MG 00:00: 10 MG 00 Kenalog Kenalog 2019-0 No 40mg Common (Triamcinol (Triamcinol 7-01 S pirit one) one) 00:00: - [facility] 00 [facility] [place] Montelukast 2019-0 No 1{table QD Montelukas Sodium 10 Sodium 10 7-01 t} t Sodium MG MG 00:00: 10 MG 00 Kenalog Kenalog 2019-0 No 40mg Common (Triamcinol (Triamcinol 7-01 S pirit one) one) 00:00: - [facility] 00 [facility] Montekast Montekast 2019-0 No 1{table QD Montelukas Sodium 10 Sodium 10 7-01 t} t Sodium MG MG 00:00: 10 MG 00 Kenalog Kenalog 2019-0 No 40mg Common (Triamcinol (Triamcinol 7-01 S pirit one) one) 00:00: - [facility] 00 [facility] [place] Montelukast 2019-0 No 1{table QD Montelukas Sodium 10 Sodium 10 7-01 t} t Sodium MG MG 00:00: 10 MG 00 Kenalog Kenalog 2019-0 No 40mg Common (Triamcinol (Triamcinol 7-01 S pirit one) one) 00:00: - [facility] 00 [facility] [place] Montelukast 2019-0 No 1{table QD Montelukas Sodium 10 Sodium 10 7-01 t} t Sodium MG MG 00:00: 10 MG 00 Kenalog Kenalog 2019-0 No 40mg Common (Triamcinol (Triamcinol 7-01 S pirit one) one) 00:00: - [facility] 00 [facility] [place] Montelukast 2019-0 No 1{table QD Montelukas Sodium 10 Sodium 10 7-01 t} t Sodium MG MG 00:00: 10 MG 00 Kenalog Kenalog 2019-0 No 40mg Common (Triamcinol (Triamcinol 7-01 S pirit one) one) 00:00: - [facility] 00 [facility] Montelukast Montelukast 2019-0 No 1{table QD Montelukas Sodium 10 Sodium 10 7- t} t Sodium MG MG 00:00: 10 MG 00 Kenalog Kenalog 2019-0 No 40mg Common (Triamcinol (Triamcinol 7-01 S pirit one) one) 00:00: - [facility] 00 [facility] Montelukast Montelukast 2019-0 No 1{table QD Montelukas Sodium 10 Sodium 10 7- t} t Sodium MG MG 00:00: 10 MG 00 Kenalog Kenalog 2019-0 No 40mg Common (Triamcinol (Triamcinol 7-01 S pirit one) one) 00:00: - [facility] 00 [facility] Kenalog Kenalog 2019-0 No 40mg Common (Triamcinol (Triamcinol 4-02 S pirit one) one) 00:00: - [facility] 00 [facility] Kenalog Kenalog 2019-0 No 40mg Common (Triamcinol (Triamcinol 4-02 S pirit one) one) 00:00: - [facility] 00 [facility] Kenalog Kenalog 2019-0 No 40mg Common (Triamcinol (Triamcinol 4-02 S pirit one) one) 00:00: - [facility] 00 [facility] Kenalog Kenalog 2019-0 No 40mg Common (Triamcinol (Triamcinol 4-02 S pirit one) one) 00:00: - [facility] 00 [facility] Kenalog Kenalog 2019-0 No 40mg Common (Triamcinol (Triamcinol 4-02 S pirit one) one) 00:00: - [facility] 00 [facility] Kenalog Kenalog 2019-0 No 40mg Common (Triamcinol (Triamcinol 4-02 S pirit one) one) 00:00: - [facility] 00 [facility] Kenalog Kenalog 2019-0 No 40mg Common (Triamcinol (Triamcinol 4-02 S pirit one) one) 00:00: - [facility] 00 [facility] Kenalog Kenalog 2019-0 No 40mg Common (Triamcinol (Triamcinol 4-02 S pirit one) one) 00:00: - [facility] 00 [facility] Kenalog Kenalog 2019-0 No 40mg Common (Triamcinol (Triamcinol 4-02 S pirit one) one) 00:00: - [facility] 00 [facility] Kenalog Kenalog 2019-0 No 40mg Common (Triamcinol (Triamcinol 4-02 S pirit one) one) 00:00: - [facility] 00 [facility] Kenalog Kenalog 2019-0 No 40mg Common (Triamcinol (Triamcinol 4-02 S pirit one) one) 00:00: - [facility] 00 [facility] Kenalog Kenalog 2019-0 No 40mg Common (Triamcinol (Triamcinol 4-02 S pirit one) one) 00:00: - [facility] 00 [facility] Kenalog Kenalog 2019-0 No 40mg Common (Triamcinol (Triamcinol 4-02 S pirit one) one) 00:00: - [facility] 00 [facility] Kenalog Kenalog 2019-0 No 40mg Common (Triamcinol (Triamcinol 4-02 S pirit one) one) 00:00: - [facility] 00 [facility] Kenalog Kenalog 2019-0 No 40mg Common (Triamcinol (Triamcinol 4-02 S pirit one) one) 00:00: - [facility] 00 [facility] Kenalog Kenalog 2019-0 No 40mg Common (Triamcinol (Triamcinol 4-02 S pirit one) one) 00:00: - [facility] 00 [facility] Kenalog Kenalog 2019-0 No 40mg Common (Triamcinol (Triamcinol 4-02 S pirit one) one) 00:00: - [facility] 00 [facility] Kenalog Kenalog 2019-0 No 40mg Common (Triamcinol (Triamcinol 4-02 S pirit one) one) 00:00: - [facility] 00 [facility] Kenalog Kenalog 2019-0 No 40mg Common (Triamcinol (Triamcinol 4-02 S pirit one) one) 00:00: - [facility] 00 [facility] Kenalog Kenalog 2019-0 No 40mg Common (Triamcinol (Triamcinol 4-02 S pirit one) one) 00:00: - [facility] 00 [facility] Kenalog Kenalog 2019-0 No 40mg Common (Triamcinol (Triamcinol 4-02 S pirit one) one) 00:00: - [facility] 00 [facility] Kenalog Kenalog 2019-0 No 40mg Common (Triamcinol (Triamcinol 4-02 S pirit one) one) 00:00: - [facility] 00 [facility] Kenalog Kenalog 2019-0 No 40mg Common (Triamcinol (Triamcinol 4-02 S pirit one) one) 00:00: - [facility] 00 [facility] Kenalog Kenalog 2019-0 No 40mg Common (Triamcinol (Triamcinol 4-02 S pirit one) one) 00:00: - [facility] 00 [facility] Kenalog Kenalog 2019-0 No 40mg Common (Triamcinol (Triamcinol 4-02 S pirit one) one) 00:00: - [facility] 00 [facility] Kenalog Kenalog 2019-0 No 40mg Common (Triamcinol (Triamcinol 4-02 S pirit one) one) 00:00: - [facility] 00 [facility] Kenalog Kenalog 2019-0 No 40mg Common (Triamcinol (Triamcinol 4-02 S pirit one) one) 00:00: - [facility] 00 [facility] Kenalog Kenalog 2019-0 No 40mg Common (Triamcinol (Triamcinol 4-02 S pirit one) one) 00:00: - [facility] 00 [facility] Kenalog Kenalog 2019-0 No 40mg Common (Triamcinol (Triamcinol 4-02 S pirit one) one) 00:00: - [facility] 00 [facility] Kenalog Kenalog 2019-0 No 40mg Common (Triamcinol (Triamcinol 4-02 S pirit one) one) 00:00: - [facility] 00 [facility] Kenalog Kenalog 2019-0 No 40mg Common (Triamcinol (Triamcinol 4-02 S pirit one) one) 00:00: - [facility] 00 [facility] Kenalog Kenalog 2019-0 No 40mg Common (Triamcinol (Triamcinol 4-02 S pirit one) one) 00:00: - [facility] 00 [facility] Kenalog Kenalog 2019-0 No 40mg Common (Triamcinol (Triamcinol 4-02 S pirit one) one) 00:00: - [facility] 00 [facility] Kenalog Kenalog 2019-0 No 40mg Common (Triamcinol (Triamcinol 4-02 S pirit one) one) 00:00: - [facility] 00 [facility] Kenalog Kenalog 2019-0 No 40mg Common (Triamcinol (Triamcinol 4-02 S pirit one) one) 00:00: - [facility] 00 [facility] Kenevan Kenalog 2019-0 No 40mg Common (Triamcinol (Triamcinol 4-02 S pirit one) one) 00:00: - [facility] 00 [facility] Kenalog Kenalog 2019-0 No 40mg Common (Triamcinol (Triamcinol 4-02 S pirit one) one) 00:00: - [facility] 00 [facility] Kenalog Kenalog 2019-0 No 40mg Common (Triamcinol (Triamcinol 4-02 S pirit one) one) 00:00: - [facility] 00 [facility] Kenalog Kenalog 2019-0 No 40mg Common (Triamcinol (Triamcinol 4-02 S pirit one) one) 00:00: - [facility] 00 [facility] Kenalog Kenalog 2019-0 No 40mg Common (Triamcinol (Triamcinol 4-02 S pirit one) one) 00:00: - [facility] 00 [facility] Kenalog Kenalog 2019-0 No 40mg Common (Triamcinol (Triamcinol 4-02 S pirit one) one) 00:00: - [facility] 00 [facility] Kenalog Kenalog 2019-0 No 40mg Common (Triamcinol (Triamcinol 4-02 S pirit one) one) 00:00: - [facility] 00 [facility] Omeprazole Omeprazole No 1{capsu QD Omeprazole 40 [...] % 0.1 % Ipratropium Ipratropium No Ipratropiu [place] 0.02 % 0.02 % 0.02 % Levothyroxi [...] % 0.1 % Ipratropium Ipratropium No Ipratropiu [place] 0.02 % 0.02 % 0.02 % HYDROcodone [...] % 0.1 % Ipratropium Ipratropium No Ipratropiu [place] 0.02 % 0.02 % 0.02 % Flonase [...] % 0.1 % Ipratropium Ipratropium No Ipratropiu [place] 0.02 % 0.02 % 0.02 % guaiFENesin [...] t} 500-125 MG Ipratropium Ipratropium No Ipratropiu [place] 0.02 % 0.02 % 0.02 % Albuterol [...] Acetonide 0.1 % 0.1 % 0.1 % Juatusfletcher Doddatussin No 5{ml} Cheratussi AC 100-10 AC 100-10 [...] 1 GM t} ir HCl 1 GM Juatussin Juatussin No 5{ml} Cheratussi AC 100-10 AC 100-10 [...] t} 20 MG Ipratropium Ipratropium No Ipratropiu [place] 0.02 % 0.02 % 0.02 % guaiFENesin [...] t} 20 MG Ipratropium Ipratropium No Ipratropiu [place] 0.02 % 0.02 % 0.02 % guaiFENesin [...] t} 20 MG Ipratropium Ipratropium No Ipratropiu [place] 0.02 % 0.02 % 0.02 % guaiFENesin [...] t} 20 MG Ipratropium Ipratropium No Ipratropiu [place] 0.02 % 0.02 % 0.02 % guaiFENesin [...] t} 20 MG Ipratropium Ipratropium No Ipratropiu [place] 0.02 % 0.02 % 0.02 % guaiFENesin [...] t} 500-125 MG Ipratropium Ipratropium No Ipratropiu [place] 0.02 % 0.02 % 0.02 % valACYclovi [...] t} 500-125 MG Ipratropium Ipratropium No Ipratropiu [place] 0.02 % 0.02 % 0.02 % valACYclovi [...] t} 500-125 MG Ipratropium Ipratropium No Ipratropiu [place] 0.02 % 0.02 % 0.02 % valACYclovi valACYclovi No 1{table BID valACYclov r HCl 1 GM r HCl 1 GM t} ir HCl 1 GM Juatusfletcher Doddatussin No 5{ml} Juatussi AC 100-10 AC 100-10 n AC MG/5ML [...] MG 10 MG Ipratropium Ipratropium No Ipratropiu [place] 0.02 % 0.02 % 0.02 % Lisinopril [...] MG/3ML (3) MG/3ML Ipratropium Ipratropium No Ipratropiu [place] 0.02 % 0.02 % 0.02 % valACYclovi [...] MG/3ML (3) MG/3ML Ipratropium Ipratropium No [place]pratropiu [place] 0.02 % 0.02 % 0.02 % valACYclovi [...] MG/3ML (3) MG/3ML Ipratropium Ipratropium No Ipratropiu [place] 0.02 % 0.02 % 0.02 % valACYclovi [...] le} 40 MG Ipratropium Ipratropium No Ipratropiu [place] 0.02 % 0.02 % 0.02 % Cetirizine [...] le} 40 MG Ipratropium Ipratropium No Ipratropiu [place] 0.02 % 0.02 % 0.02 % Famotidine [...] t} 20 MG Ipratropium Ipratropium No Ipratropiu [place] 0.02 % 0.02 % 0.02 % Cetirizine [...] le} 40 MG Ipratropium Ipratropium No Ipratropiu [place] 0.02 % 0.02 % 0.02 % Lidocaine [...] t} 20 MG Ipratropium Ipratropium No Ipratropiu [place] 0.02 % 0.02 % 0.02 % guaiFENesin [...] t} 500-125 MG Ipratropium Ipratropium No Ipratropiu [place] 0.02 % 0.02 % 0.02 % valACYclovi [...] MCG/ACT MCG/ACT MCG/ACT Ipratropium Ipratropium No Ipratropiu [place] 0.02 % 0.02 % 0.02 % Lisinopril [...] ER 10 MEQ Ipratropium Ipratropium No Ipratropiu [place] 0.02 % 0.02 % 0.02 % Levothyroxi [...] ER 10 MEQ Ipratropium Ipratropium No Ipratropiu [place] 0.02 % 0.02 % 0.02 % Levothyroxi [...] ER 10 MEQ Ipratropium Ipratropium No Ipratropiu [place] 0.02 % 0.02 % 0.02 % Levothyroxi [...] MG 10-325 MG Ipratropium Ipratropium No Ipratropiu [place] 0.02 % 0.02 % 0.02 % Levothyroxi [...] 10-325 eded} MG MG Ipratropium Ipratropium No [place] 0.02 % 0.02 % Levothyroxi Levothyroxi No [...] MG 10-325 MG Ipratropium Ipratropium No Ipratropiu [place] 0.02 % 0.02 % 0.02 % Levothyroxi [...] 10-325 eded} MG MG Ipratropium Ipratropium No [place] 0.02 % 0.02 % Levothyroxi Levothyroxi No [...] MG 10-325 MG Ipratropium Ipratropium No Ipratropiu [place] 0.02 % 0.02 % 0.02 % Levothyroxi [...] MG 10-325 MG Ipratropium Ipratropium No Ipratropiu [place] 0.02 % 0.02 % 0.02 % Levothyroxi [...] MG 10-325 MG Ipratropium Ipratropium No Ipratropiu [place] 0.02 % 0.02 % 0.02 % Levothyroxi [...] MG 10-325 MG Ipratropium Ipratropium No [place]pratropiu [place] 0.02 % 0.02 % 0.02 % Levothyroxi [...] MG 10-325 MG Ipratropium Ipratropium No [place]pratropiu [place] 0.02 % 0.02 % 0.02 % Levothyroxi [...] MG 10-325 MG Ipratropium Ipratropium No [place]pratropiu [place] 0.02 % 0.02 % 0.02 % Levothyroxi [...] MG 40 MG Ipratropium Ipratropium No Ipratropiu [place] 0.02 % 0.02 % 0.02 % HYDROcodone [...] MG 40 MG Ipratropium Ipratropium No Ipratropiu [place] 0.02 % 0.02 % 0.02 % HYDROcodone [...] MG 40 MG Ipratropium Ipratropium No Ipratropiu [place] 0.02 % 0.02 % 0.02 % HYDROcodone [...] MG 40 MG Ipratropium Ipratropium No [place]pr[place]ropiu [place] 0.02 % 0.02 % 0.02 % Gabapentin [...] ER 10 MEQ Ipratropium Ipratropium No Ipratropiu [place] 0.02 % 0.02 % 0.02 % HYDROcodone [...] ER 10 MEQ Ipratropium Ipratropium No Ipratropiu [place] 0.02 % 0.02 % 0.02 % HYDROcodone [...] MCG 50 MCG Ipratropium Ipratropium No [place]pr[place]iu [place] 0.02 % 0.02 % 0.02 % traZODone [...] MCG/ACT MCG/ACT MCG/ACT Ipratropium Ipratropium No Ipratropiu [place] 0.02 % 0.02 % 0.02 % Atorvastati [...] MCG/ACT MCG/ACT MCG/ACT Ipratropium Ipratropium No Ipratropiu [place] 0.02 % 0.02 % 0.02 % Atorvastati [...] MCG/ACT MCG/ACT MCG/ACT Ipratropium Ipratropium No Ipratropiu [place] 0.02 % 0.02 % 0.02 % Atorvastati [...] MCG/ACT MCG/ACT MCG/ACT Ipratropium Ipratropium No Ipratropiu [place] 0.02 % 0.02 % 0.02 % Atorvastati [...] le} 40 MG Ipratropium Ipratropium No Ipratropiu [place] 0.02 % 0.02 % 0.02 % Atorvastati [...] le} 300 MG Ipratropium Ipratropium No Ipratropiu [place] 0.02 % 0.02 % 0.02 % traZODone [...] MG 40 MG Ipratropium Ipratropium No Ipratropiu [place] 0.02 % 0.02 % 0.02 % Ventolin [...] MG 40 MG Ipratropium Ipratropium No Ipratropiu [place] 0.02 % 0.02 % 0.02 % Ventolin [...] MCG 50 MCG Ipratropium Ipratropium No Ipratropiu [place] 0.02 % 0.02 % 0.02 % Ventolin [...] 500-125 MG 500-125 MG t} 500-125 MG Vital Signs Vital Name Observation Time Observation Value Comments Source height 2021-09-12 16:20:00 62.00 [in_i] [facility] weight 2021-09-12 16:20:00 252 [lb_av] [facility] bmi 2021-09-12 16:20:00 46.09 kg/m2 [facility] height 2021-06-20 09:40:00 62.00 [in_i] [facility] weight 2021-06-20 09:40:00 252 [lb_av] [facility] temperature 2021-06-20 09:40:00 97.2 [degF] [facility] bmi 2021-06-20 09:40:00 46.09 kg/m2 [facility] oximetry 2021-06-20 09:40:00 94 % [facility] respiratory rate 2021-06-20 09:40:00 18 /min [facility] on [facility] blood pressure 2021-06-20 09:40:00 116 mm[Hg] [facility] - systolic [facility] blood pressure 2021-06-20 09:40:00 62 mm[Hg] [facility] - diastolic [facility] height 2021-06-01 11:40:00 62.00 [in_i] [facility] weight 2021-06-01 11:40:00 252 [lb_av] [facility] temperature 2021-06-01 11:40:00 99.2 [degF] [facility] bmi 2021-06-01 11:40:00 46.09 kg/m2 [facility] oximetry 2021-06-01 11:40:00 92 % [facility] Body height 2020-10-14 15:20:00 157.5 cm [facility] Body weight 2020-10-14 15:20:00 106.595 kg [facility] BMI 2020-10-14 15:20:00 42.98 kg/m2 [facility] Systolic (mm Hg) 2021-11-17 20:59:00 [facility] [place] Diastolic (mm Hg) 2021-11-17 20:59:00 [facility] [place] [facility] Rate 2021-11-17 20:59:00 [facility] [place] Respitory Rate 2021-11-17 20:59:00 [facility] [place] Systolic (mm Hg) 2021-09-15 14:41:00 Mohinder [facility] [place] Diastolic (mm Hg) 2021-09-15 14:41:00 [facility] [place] Heart Rate 2021-09-15 14:41:00 [facility] [place] Respitory Rate 2021-09-15 14:41:00 [facility] [place] Respitory Rate 2021-07-18 21:21:00 [facility] [place] Systolic (mm Hg) 2021-07-18 21:21:00 [facility] [place] Diastolic (mm Hg) 2021-07-18 21:21:00 [facility] [place] Heart Rate 2021-07-18 21:21:00 [facility] [place] Systolic (mm Hg) 2021-04-27 17:01:00 [facility]inder [facility] [place] Diastolic (mm Hg) 2021-04-27 17:01:00 [facility] [place] Heart Rate 2021-04-27 17:01:00 [facility] [place] Respitory Rate 2021-04-27 17:01:00 [facility] [place] Procedures Procedure Date / Time Performed Performing Clinician Sour e XR KNEE 3 VW BILATERAL 2020-10-14 15:09:03 Shonda [facility] ASSIGNMENT OF BENEFITS 2020-10-14 14:47:40 Doctor Unassigned, No [facility] procedure<sup>1</sup> Encounters Start End Encounter Admission Attending Care Care Encounter Source Date/Time Date/Time Type Type Clinicians Facility Department ID 2022-10-22 Outpatient Saragadam, STLMLC STLMLC [id number] Common 16:25:00 Jennifer [id number] [facility] 2022-09-19 Outpatient Richter, STLMLC STLMLC [id number] Common 08:01:00 Avnee [id number] [facility] 2022-09-11 Outpatient Richter, STLMLC STLMLC [id number] Common 13:51:00 Avnee [id number] [facility] 2022-06-13 Outpatient Richter, STLMLC STLMLC [id number] Common 07:44:00 Avnee [id number] [facility] 2022-06-07 Outpatient Richter, STLMLC STLMLC [id number] Common 14:35:00 Avnee [id number] [facility] 2022-04-17 Outpatient Christa, STLMLC STLMLC [id number] Common 08:41:00 Gaviota [id number] [facility] 2021-11-27 Outpatient Barrera, Na STLMLC STLMLC [id number] 2 Common 15:22:00 [facility] 2021-10-10 Outpatient Barrera, Na STLMLC STLMLC [id number] 2 Common 10:59:00 [facility] 2021-08-15 Outpatient Barrera, Na STLMLC STLMLC [id number] Common 10:25:00 [facility] 2021-07-05 Outpatient Barrera, Na STLMLC STLMLC [id number] 2 Common 14:12:01 [facility] 2021-06-27 Outpatient Barrera, Na STLMLC STLMLC [id number] 2 Common 09:59:00 [facility] 2021-06-07 Outpatient Barrera, Na STLMLC STLMLC [id number] 2 Common 15:30:01 [facility] 2021-05-04 Outpatient Barrera, Na STLMLC STLMLC [id number] 2 Common 09:33:01 [facility] 2021-03-31 Outpatient Barrera, Na STLMLC STLMLC [id number] 2 Common 12:05:00 [facility] 2021-03-29 Outpatient Barrera, Na STLMLC STLMLC [id number] 2 Common 14:32:33 [facility] 2021-03-29 Outpatient Barrera, Na STLMLC STLMLC [id number] 2 Common 13:38:02 [id number] [facility] 2021-03-29 Outpatient Barrera, Na STLMLC STLMLC [id number] 2 Common 13:32:46 [id number] [facility] 2021-03-29 Outpatient Barrera, Na STLMLC STLMLC [id number] 2 Common 13:30:24 [id number] [facility] 2021-03-29 Outpatient Barrera, Na STLMLC STLMLC [id number] 2 Common 13:28:10 [id number] [facility] 2021-03-29 Outpatient Barrera, Na STLMLC STLMLC [id number] 2 Common 13:18:02 [id number] [facility] 2021-03-29 Outpatient Barrera, Na STLMLC STLMLC [id number] 2 Common 12:24:39 [id number] [facility] 2021-03-29 Outpatient Barrera, Na STLMLC STLMLC [id number] 2 Common 12:21:13 [id number] [facility] 2021-03-29 Outpatient Barrera, Na STLMLC STLMLC [id number] Common 12:08:19 [id number] [facility] 2021-03-29 Outpatient Barrera, Na STLMLC STLMLC [id number] 2 Common 12:03:10 [id number] [facility] 2021-03-29 Outpatient Barrera, Na STLMLC STLMLC [id number] 2 Common 11:56:37 [id number] [facility] 2021-03-29 Outpatient Barrera, Na STLMLC STLMLC [id number] 2 Common 11:56:07 [id number] [facility] 2021-03-29 Outpatient Barrera, Na STLMLC STLMLC [id number] 2 Common 11:55:44 [id number] [facility] 2021-03-29 Outpatient Barrera, Na STLMLC STLMLC [id number] 2 Common 11:17:10 [id number] [facility] 2021-03-29 Outpatient Barrera, Na STLMLC STLMLC [id number] 2 Common 11:06:23 [id number] [facility] 2021-03-29 Outpatient Barrera, Na STLMLC STLMLC [id number] 2 Common 10:58:22 [id number] [facility] 2022-04-10 2022-04-10 Outpatient R [facility]OLOG[facility] [id number] Univers 13:30:00 13:30:00 ity [facility] 2022-02-20 2022-02-20 (TEL) STLMLC STLMLC [id number] Co mmon 00:00:00 00:00:00 [facility] 2022-02-16 2022-02-16 Ambulatory MHIE MNA [id number] Memoria 21:15:00 21:15:00 Pre-Reg Neurology 05 l Amrik Oconnellann 2022-02-16 2022-02-16 Ambulatory MHIE MNA [id number] Memoria 21:15:00 21:15:00 Pre-Reg Neurology 05 l Amrik Oconnellann 2022-02-16 2022-02-16 Outpatient MHIE MHIE [id number] Memoria 15:15:00 15:15:00 05 andres Gore 2022-02-16 2022-02-16 Outpatient JAIME CorderoMISCHER MHMISCHER [id number] 15:15:00 15:15:00 Saul Read 2022-02-02 2022-02-02 (TEL) STLMLC STLMLC [id number] Co mmon 00:00:00 00:00:00 [facility] 2022-01-31 2022-01-31 (TEL) STLMLC STLMLC [id number] Co mmon 00:00:00 00:00:00 [facility] 2022-01-11 2022-01-11 OL DIG E/M STLMLC STLMLC [id number] Common 00:00:00 00:00:00 [facility] [place] Spir [place] MIN [facility] 2022-01-09 2022-01-09 (TEL) STLMLC STLMLC [id number] Co mmon 00:00:00 00:00:00 [facility] 2021-12-11 2021-12-11 (TEL) STLMLC STLMLC [id number] Co mmon 00:00:00 00:00:00 [facility] 2021-12-07 2021-12-07 (TEL) STLMLC STLMLC [id number] Co mmon 00:00:00 00:00:00 [facility] 2021-11-29 2021-11-29 OL DIG E/M STLMLC STLMLC [id number] Common 00:00:00 00:00:00 [facility] [place] Spir it MIN [facility] 2021-11-22 2021-11-22 (TEL) STLMLC STLMLC [id number] Co mmon 00:00:00 00:00:00 [facility] 2021-11-17 2021-11-18 Outpatient nullFlavo MNA [id number] Memoria 21:00:00 04:59:59 r Neurology 04 l Amrik Gore 2021-11-17 2021-11-18 Outpatient nullFlavo MNA [id number] Memoria 21:00:00 04:59:59 r Neurology 04 l Amrik Gore 2021-11-17 2021-11-17 Outpatient DORON Cordero [id number] 16:00:00 23:59:59 Saul Read 2021-11-17 2021-11-17 Outpatient LUCIA MYERS [id number] Memoria 16:00:00 16:00:00 04 l Bao 2021-11-16 2021-11-16 (TEL) STLMLC STLMLC [id number] Co mmon 00:00:00 00:00:00 [facility] 2021-11-14 2021-11-14 (TEL) STLMLC STLMLC [id number] Co mmon 00:00:00 00:00:00 [facility] 2021-10-17 2021-10-17 (TEL) STLMLC STLMLC [id number] Co mmon 00:00:00 00:00:00 [facility] 2021-10-11 2021-10-11 (TEL) STLMLC STLMLC [id number] Co mmon 00:00:00 00:00:00 [facility] 2021-10-11 2021-10-11 OL DIG E/M STLMLC STLMLC [id number] Common 00:00:00 00:00:00 [facility] [place]-20 Spir it [facility] 2021-10-06 2021-10-06 (TEL) STLMLC STLMLC [id number] Co mmon 00:00:00 00:00:00 [facility] 2021-09-18 2021-09-18 (TEL) STLMLC STLMLC [id number] Co mmon 00:00:00 00:00:00 [facility] 2021-09-15 2021-09-16 Outpatient nullFlavo MNA [id number] Memoria 15:00:00 04:59:59 r Neurology 03 l Winnet[place]ia Oconnellann 2021-09-15 2021-09-16 Outpatient nullFlavo MNA [id number] Memoria 15:00:00 04:59:59 r Neurology 03 l Amrik Gore 2021-09-15 2021-09-15 Outpatient DORON Cordero [id number] 10:00:00 23:59:59 Saul Read 2021-09-15 2021-09-15 Outpatient MHIE JAIMEIE [id number] Memoria 10:00:00 10:00:00 03 andres Gore 2021-09-12 2021-09-12 OL DIG E/M STLMLC STLMLC [id number] Common 00:00:00 00:00:00 [facility] [place]-20 Spir it [facility] 2021-09-07 2021-09-07 (TEL) STLMLC STLMLC [id number] Co mmon 00:00:00 00:00:00 [facility] 2021-09-06 2021-09-06 (TEL) STLMLC STLMLC [id number] Co mmon 00:00:00 00:00:00 [facility] 2021-08-30 2021-08-30 (TEL) STLMLC STLMLC [id number] Co mmon 00:00:00 00:00:00 [facility] 2021-08-21 2021-08-21 (TEL) STLMLC STLMLC [id number] Co mmon 00:00:00 00:00:00 [facility] 2021-08-18 2021-08-18 (TEL) STLMLC STLMLC [id number] Co mmon 00:00:00 00:00:00 [facility] 2021-08-16 2021-08-16 (TEL) STLMLC STLMLC [id number] Co mmon 00:00:00 00:00:00 [facility] 2021-08-15 2021-08-15 (TEL) STLMLC STLMLC [id number] Co mmon 00:00:00 00:00:00 [facility] 2021-08-08 2021-08-08 (TEL) STLMLC STLMLC [id number] Co mmon 00:00:00 00:00:00 [facility] 2021-07-18 2021-07-19 Outpatient nullFlavo MNA [id number] Memoria 21:15:00 04:59:59 r Neurology 02 l Amrik Gore 2021-07-18 2021-07-19 Outpatient nullFlavo MNA [id number] Memoria 21:15:00 04:59:59 r Neurology 02 l Amrik Oconnellann 2021-07-18 2021-07-18 Outpatient Krell[facility] [id number] 16:15:00 23:59:59 Saul Read 2021-07-18 2021-07-18 Outpatient JAIMEIE LUCIA [id number] Memoria 16:15:00 16:15:00 02 andres Gore 2021-07-05 2021-07-05 OL DIG E/M STLMLC STLMLC [id number] Common 00:00:00 00:00:00 [facility] 11-20 Spir it MIN [facility] 2021-07-03 2021-07-03 (TEL) STLMLC STLMLC [id number] Co mmon 00:00:00 00:00:00 [facility] 2021-06-28 2021-06-28 OFFICE STLMLC STLMLC [id number] Co mmon 00:00:00 00:00:00 VISIT [facility] PT - [facility] LEVEL 4 [facility] 2021-06-21 2021-06-21 (TEL) STLMLC STLMLC [id number] Co mmon 00:00:00 00:00:00 [facility] 2021-06-20 2021-06-20 OFFICE STLMLC STLMLC [id number] Co mmon 00:00:00 00:00:00 VISIT EST Spir it PT LEVEL 3 [facility] 2021-06-07 2021-06-07 (TEL) STLMLC STLMLC [id number] Co mmon 00:00:00 00:00:00 [facility] 2021-06-01 2021-06-01 (TEL) STLMLC STLMLC [id number] Co mmon 00:00:00 00:00:00 [facility] 2021-06-01 2021-06-01 OFFICE STLMLC STLMLC [id number] Co mmon 00:00:00 00:00:00 VISIT EST Spir it PT LEVEL 3 [facility] 2021-06-01 2021-06-01 (TEL) STLMLC STLMLC [id number] Co mmon 00:00:00 00:00:00 [facility] 2021-05-25 2021-05-25 Ambulatory nullFlavo MNA [id number] Memoria 18:00:00 18:00:00 Pre-Reg r Neurology 01 l Amrik Gore 2021-05-25 2021-05-25 Ambulatory nullFlavo MNA [id number] Memoria 18:00:00 18:00:00 Pre-Reg r Neurology 01 l Amrik Gore 2021-05-25 2021-05-25 Outpatient MHIE MHIE [id number] Memoria 13:00:00 13:00:00 01 andres Gore 2021-05-25 2021-05-25 Outpatient ORLY [facility]CHRACHEL [id number] 13:00:00 13:00:00 Saul Jacek 2021-05-22 2021-05-22 (TEL) STLMLC STLMLC [id number] Co mmon 00:00:00 00:00:00 [facility] 2021-05-05 2021-05-05 (TEL) STLMLC STLMLC [id number] Co mmon 00:00:00 00:00:00 [facility] 2021-04-27 2021-04-28 Outpatient nullFlavo MNA [id number] Memoria 17:00:00 05:59:59 r Neurology 00 l Amrik Gore 2021-04-27 2021-04-28 Outpatient nullFlavo MNA [id number] Memoria 17:00:00 05:59:59 r Neurology 00 l Amrik Gore 2021-04-27 2021-04-27 Outpatient DORON [facility]order[id number] 11:00:00 23:59:59 Saul Jacek 2021-04-27 2021-04-27 Outpatient MHIE MHIE [id number] Memoria 11:00:00 11:00:00 00 andres Gore 2021-04-24 2021-04-24 (TEL) STLMLC STLMLC [id number] Co mmon 00:00:00 00:00:00 [facility] 2021-04-24 2021-04-24 (TEL) STLMLC STLMLC [id number] Co mmon 00:00:00 00:00:00 [facility] 2021-04-18 2021-04-18 (TEL) STLMLC STLMLC [id number] Co mmon 00:00:00 00:00:00 [facility] 2021-04-07 2021-04-07 (TEL) STLMLC STLMLC [id number] Co mmon 00:00:00 00:00:00 [facility] 2021-04-07 2021-04-07 (TEL) STLMLC STLMLC [id number] Co mmon 00:00:00 00:00:00 [facility] 2021-03-31 2021-03-31 (TEL) STLMLC STLMLC [id number] Co mmon 00:00:00 00:00:00 [facility] 2021-03-31 2021-03-31 (TEL) STLMLC STLMLC [id number] Co mmon 00:00:00 00:00:00 [facility] 2021-03-28 2021-03-28 (TEL) STLMLC STLMLC [id number] Co mmon 00:00:00 00:00:00 [facility] 2021-03-17 2021-03-17 (TEL) STLMLC STLMLC [id number] Co mmon 00:00:00 00:00:00 [facility] 2021-03-16 2021-03-16 (TEL) STLMLC STLMLC [id number] Co mmon 00:00:00 00:00:00 [facility] 2021-03-16 2021-03-16 (TEL) STLMLC STLMLC [id number] Co mmon 00:00:00 00:00:00 [facility] 2021-03-13 2021-03-13 OFFICE STLMLC STLMLC [id number] Co mmon 00:00:00 00:00:00 VISIT [facility] 4 [facility] 2021-03-10 2021-03-10 (TEL) STLMLC STLMLC [id number] Co mmon 00:00:00 00:00:00 [facility] 2020-10-14 2020-10-14 [facility] [id number] Univers 09:51:55 23:59:00 Encounter Shonda Pacheco [id number] [facility] [place] [id number] [phone] [facility] [address]07 Branch 2020-10-14 2020-10-14 Office [facility] [id number] Univers 10:14:41 11:07:28 Visit Shonda Lynch [facility] [id number] it y of Surgical [id number] Yaya as Specialti [id number] Mn dical es 198 [facility] 2020-10-14 2020-10-14 [facility] [id number] Univers 00:00:00 00:00:00 SHONDA ity [facility] 2020-10-14 2020-10-14 Orders Doctor VASYL [id number] Univers 00:00:00 00:00:00 Only Unassigned, NIKOLE [id number] [facility] [id number] Yaya as [phone] [facility] 009 Branch 2020-10-07 2020-10-07 Outpatient Sendy [facility] [id number] Univers 08:30:00 08:30:00 ELLE ity [facility] 2020-10-03 2020-10-03 Outpatient STLMLC STLMLC [id number] Common 00:00:00 00:00:00 [facility] 2020-09-27 2020-09-27 Outpatient STLMLC STLMLC [id number] Common 00:00:00 00:00:00 [facility] 2020-09-27 2020-09-27 Outpatient STLMLC STLMLC [id number] Common 00:00:00 00:00:00 [facility] 2020-08-24 2020-08-24 Outpatient STLMLC STLMLC [id number] Common 00:00:00 00:00:00 [facility] 2020-08-24 2020-08-24 Outpatient STLMLC STLMLC [id number] Common 00:00:00 00:00:00 [facility] 2020-03-30 2020-03-30 Outpatient STLMLC STLMLC [id number] Common 00:00:00 00:00:00 [facility] 2020-02-08 2020-02-08 Outpatient STLMLC STLMLC [id number] Common 00:00:00 00:00:00 [facility] 2019-12-28 2019-12-28 Outpatient STLMLC STLMLC [id number] Common 00:00:00 00:00:00 [facility] 2019-12-21 2019-12-21 Outpatient STLMLC STLMLC [id number] Common 00:00:00 00:00:00 [facility] 2019-12-21 2019-12-21 Outpatient STLMLC STLMLC [id number] Common 00:00:00 00:00:00 [facility] 2019-12-14 2019-12-14 Outpatient STLMLC STLMLC [id number] Common 00:00:00 00:00:00 [facility] 2019-08-27 2019-08-27 [facility] [id number] Common 08:35:00 08:35:[address] [facility] 2019-08-10 2019-08-10 [facility] [id number] Common 14:58:00 14:58:[address] [facility] 2019-08-07 2019-08-07 [facility] [id number] Common 15:31:00 15:31:[address] [facility] 2019-08-06 2019-08-06 [facility] [id number] Common 08:00:00 08:00:[address] [facility] 2019-07-06 2019-07-06 [facility] [id number] Common 16:34:00 16:34:[address] [facility] 2019-06-11 2019-06-11 [facility] [id number] Common 11:14:00 11:14:[address] [facility] 2019-05-28 2019-05-28 [facility] [id number] Common 16:13:00 16:13:[address] [facility] 2019-03-19 2019-03-19 [facility] [id number] Common 16:53:00 16:53:[address] [facility] 2019-03-17 2019-03-17 [facility] [id number] Common 08:02:00 08:02:[address] [facility] 2019-03-11 2019-03-11 [facility] [id number] Common 15:56:00 15:56:[address] [facility] 2019-03-11 2019-03-11 [facility] [id number] Common 08:53:00 08:53:[address] [facility] 2019-03-10 2019-03-10 [facility] [id number] Common 13:40:00 13:40:[address] [facility] 2018-10-28 2018-10-28 [facility] [id number] Common 11:44:00 11:44:[address] [facility] 2018-10-09 2018-10-09 [facility] [id number] Common 09:34:00 09:34:[address] [facility] 2018-09-01 2018-09-01 [facility] [id number] Common 08:40:00 08:40:[address] [facility] 2018-08-29 2018-08-29 [facility] [id number] Common 13:39:00 13:39:[address] [facility] 2018-06-13 2018-06-13 [facility] 25 Common 14:41:00 14:41:[address] [facility] 2018-06-11 2018-06-11 [facility] [id number] Common 09:59:00 09:59:[address] [facility] 2018-06-03 2018-06-03 [facility] [id number] Common 11:00:00 11:00:[address] [facility] 2018-05-12 2018-05-12 [facility] [id number] Common 09:43:00 09:43:[address] [facility] 2018-04-17 2018-04-17 [facility] [id number] Common 13:45:00 13:45:00 t Specialty/U Sp vesta Specialty rology - [facility] /Urology Clinic [facility] 2018-04-03 2018-04-03 [facility] [id number] Common 08:31:00 08:31:[address] [facility] 2018-03-28 2018-03-28 [facility] [id number] Common 13:10:00 13:10:[address] [facility] 2018-03-28 2018-03-28 [facility] [id number] Common 10:52:00 10:52:00 t Specialty/U Sp vesta Specialty rology - [facility] /Urology Clinic [facility] 2018-03-26 2018-03-26 [facility] [id number] Common 16:01:00 16:01:[address] [facility] 2018-03-25 2018-03-25 [facility] [id number] Common 08:15:00 08:15:00 [address] Spir it Drive [facility] 2017-12-16 2017-12-[address] [facility] [id number] Common 00:00:00 00:00:00 [facility] Results Test Description Test Time Test Comments Results Result Sourc e Comments XR KNEE 3 VW 2020-10-02 1. University o f BILATERAL 3 ?Osteoarthritis. [facility] dical 17:10:44 RL: [address] HISTORY: ?bilateral knee [...]
[2022-11-05] MEDS ORDERED: MORPHINE 4 MG/ML SYR ONE (23:24)
[2022-11-05] MEDS ORDERED: ONDANSETRON 4 MG/2 ML VIAL ONE (23:25)
[2022-11-05] MEDS ORDERED: NA CHLORIDE 0.9% 1,000 ML ONE (23:25)
[2022-11-05] MEDS ORDERED: FAMOTIDINE 20 MG/2 ML VIAL IV ONE (23:25)
[2022-11-06 00:20] LABS: Absolute Lymphocytes (CBC) 1.2 K/uL (0.7-4.9); Hematocrit 37.7 % (36.0-45.0); Lymphocytes % 16.2 % (15.3-44.8); MPV 8.8 fL (7.6-11.3); Platelets 256 thou/uL (152-406); RBC Red Blood Cell Count 3.88 M/uL (3.86-4.86)
[2022-11-06] MEDS ORDERED: NA CHLORIDE 0.9% 250 ML ONE (00:21)
[2022-11-06] MEDS ORDERED: PANTOPRAZOLE 40 MG INJ ONE (00:21)
[2022-11-06] MEDS ORDERED: PIPERACIL/TAZO 3.375 GM VIAL IV ONE (00:21)
[2022-11-06] MEDS ORDERED: ACETAMINOPHEN 325 MG TABLET ONE (00:21)
[2022-11-06] MEDS ORDERED: NA CHLORIDE 0.9% 100 ML ONE (00:21)
[2022-11-06 00:23] LABS: Protime INR 0.87
[2022-11-06 00:39] LABS: Bilirubin Direct 0.2 mg/dL (0-0.2); Bilirubin Indirect, Calculated 0.4 mg/dL (0.2-0.8); Bilirubin Total 0.6 mg/dL (0.2-1.0); Magnesium 2.1 mg/dL (1.6-2.4); Potassium 3.7 mEq/L (3.5-5.1); Protein, Total 6.4 g/dL (6.4-8.2); Troponin High Sensitivity 10.8 pg/mL (<58.9)
--- NOTE | 2022-11-06 01:22 | EDPHYS ---
Physician Documentation [facility] Name: Earnest Baker Age: 72 yrs Sex: Female : 1950 Arrival Date: 11/05/2022 Time: 22:51 Bed 8 Private MD: ED Physician Jaxon Vázquez HPI: 11/05 23:22 This 72 yrs old Female presents to ER via EMS with complaints of Cough. malachi 23:22 The patient or guardian reports airway noise, cough, difficulty breathing, flu malachi symptoms, arthralgias, low-grade fever. Historical: - Allergies: 22:53 No Known Allergies; bp - Home Meds: 22:53 atorvastatin 40 mg Oral tablet every evening [Active]; gabapentin 300 mg Oral capsule 2 bp caps four times a day [Active]; hydrocodone-acetaminophen 5-325 mg Oral tablet 3 times per day [Active]; Symbicort 160-4.5 mcg/actuation inhalation HFA Aerosol Inhaler 2 puffs 2 times per day [Active]; - PMHx: 22:53 COPD; diabetes mellitus; Gastroesophageal reflux disease; Home Oxygen; Hypertension; bp Hypothyroidism; Chronic pain; - Immunization history:: Adult Immunizations up to date, Client reports receiving the 2nd dose of the Covid vaccine. - Social history:: Smoking status: Patient reports the use of cigarette tobacco products, smokes one pack cigarettes per day. ROS: 23:24 Constitutional: Negative for fever, chills, and weight loss, Eyes: Negative for injury, malachi pain, redness, and discharge, ENT: Negative for injury, pain, and discharge, Neck: Negative for injury, pain, and swelling, Cardiovascular: Negative for chest pain, palpitations, and edema, Back: Negative for injury and pain, : Negative for injury, bleeding, discharge, and swelling, MS/Extremity: Negative for injury and deformity, Skin: Negative for injury, rash, and discoloration, Neuro: Negative for headache, weakness, numbness, tingling, and seizure, Psych: Negative for depression, anxiety, suicide ideation, homicidal ideation, and hallucinations, Allergy/Immunology: Negative for hives, rash, and allergies, Endocrine: Negative for neck swelling, polydipsia, polyuria, polyphagia, and marked weight changes, Hematologic/Lymphatic: Negative for swollen nodes, abnormal bleeding, and unusual bruising. 23:24 Respiratory: Positive for cough, shortness of breath. 23:24 Abdomen/GI: Positive for abdominal pain, nausea and vomiting, black/tarry stool. Exam: 23:24 Constitutional: This is a well developed, well nourished patient who is awake, alert, malachi and in no acute distress. Head/Face: Normocephalic, atraumatic. Eyes: Pupils equal round and reactive to light, extra-ocular motions intact. Lids and lashes normal. Conjunctiva and sclera are non-icteric and not injected. Cornea within normal limits. Periorbital areas with no swelling, redness, or edema. ENT: Nares patent. No nasal discharge, no septal abnormalities noted. Tympanic membranes are normal and external auditory canals are clear. Oropharynx with no redness, swelling, or masses, exudates, or evidence of obstruction, uvula midline. Mucous membranes moist. Neck: Trachea midline, no thyromegaly or masses palpated, and no cervical lymphadenopathy. Supple, full range of motion without nuchal rigidity, or vertebral point tenderness. No Meningismus. Chest/axilla: Normal chest wall appearance and motion. Nontender with no deformity. No lesions are appreciated. Cardiovascular: Regular rate and rhythm with a normal S1 and S2. No gallops, murmurs, or rubs. Normal PMI, no JVD. No pulse deficits. Back: No spinal tenderness. No costovertebral tenderness. Full range of motion. Female : Normal external genitalia. Skin: Warm, dry with normal turgor. Normal color with no rashes, no lesions, and no evidence of cellulitis. MS/ Extremity: Pulses equal, no cyanosis. Neurovascular intact. Full, normal range of motion. Neuro: Awake and alert, GCS 15, oriented to person, place, time, and situation. Cranial nerves II-XII grossly intact. Motor strength 5/5 in all extremities. Sensory grossly intact. Cerebellar exam normal. Normal gait. Psych: Awake, alert, with orientation to person, place and time. Behavior, mood, and affect are within normal limits. 23:24 Respiratory: the patient does not display signs of respiratory distress, mild respiratory distress is noted, Respirations: no acute changes, Breath sounds: bronchial sounds, that are mild, are scattered, decreased breath sounds, that are mild, are located in both bases, rhonchi, that are mild, are scattered, stridor, is not appreciated, + upper airway congestion. 23:26 Abdomen/GI: Rectal exam: rectal tone mass, is not appreciated, swelling, is not malachi appreciated, Liver: no appreciated palpable abnormalities, Hernia: not appreciated. Vital Signs: 22:52 BP 189 / 94; Pulse 100; Resp 20; Temp 98; Pulse Ox 97% on R/A; bp 23:01 Weight 86.18 kg; Height 5 ft. 2 in. ; vc1 23:02 BP 140 / 77; Pulse 93; Resp 23; Temp 99.5(O); Pulse Ox 98% ; vc1 11/06 00:38 BP 144 / 87; Pulse 83; Resp 16; Pulse Ox 97% on R/A; bp 01:00 BP 137 / 61; Pulse 93; Resp 17; Pulse Ox 96% on R/A; vc1 02:00 BP 125 / 64; Pulse 84; Resp 19; Pulse Ox 100% ; vc1 03:00 BP 143 / 79; Pulse 88; Resp 17; Pulse Ox 95% ; vc1 11/05 23:01 Body Mass Index 34.75 (86.18 kg, 157.48 cm) vc1 MDM: 11/05 22:53 Patient medically screened. malachi 23:24 Differential Diagnosis: Obstructed Airway Bronchitis Influenza Upper Respiratory malachi Infection Sinusitis Pharyngitis Asthma Exacerbation Viral Syndrome Pneumonia. Data reviewed: vital signs, nurses notes, lab test result(s), EKG, radiologic studies, plain films. Consideration of Admission/Observation Patient was admitted/placed on observation. Escalation of care including admission/observation considered. I considered the following discharge prescriptions or medication management in the emergency department Medications were administered in the Emergency Department. See MAR. Test considered but Not performed: Ultrasound NO ABD USG. Care significantly affected by the following chronic conditions: Diabetes, Hypertension, Chronic Obstructive Pulmonary Disease, Obesity, Chronic Kidney Disease. Counseling: I had a detailed discussion with the patient and/or guardian regarding the historical points, exam findings, and any diagnostic results supporting the discharge/admit diagnosis, the presence of at least one elevated blood pressure reading (>120/80) during this emergency department visit, radiology results. 11/05 22:56 Order name: Basic Metabolic Panel; Complete Time: 01:09 malachi 11/05 22:56 Order name: CBC with Diff; Complete Time: 00:39 [facility] 11/05 22:56 Order name: LFT's; Complete Time: 01:09 [facility] 11/05 22:56 Order name: Magnesium; Complete Time: 01:09 [facility] 11/05 22:56 Order name: NT PRO-BNP; Complete Time: 01:09 [facility] 11/05 22:56 Order name: PT-INR; Complete Time: 00:39 [facility] 11/05 22:56 Order name: Troponin HS; Complete Time: 01:09 [facility] 11/05 22:56 Order name: Blood Culture Adult (2) [facility] 11/05 22:56 Order name: Lactate w/ 2H reflex if indic.; Complete Time: 00:39 [facility] 11/05 22:56 Order name: Lipase; Complete Time: 01:09 [facility] 11/05 22:56 Order name: Urinalysis w/ reflexes [facility] 11/05 22:56 Order name: Osmolality, Serum [facility] 11/05 22:56 Order name: Urine Sodium Random [facility] 11/05 22:56 Order name: Urine Osmolality [facility] 11/05 23:23 Order name: Flu [facility] 11/06 00:36 Order name: SARS-COV-2 RT PCR [facility] 11/05 22:56 Order name: XRAY Chest (1 view) [facility] 11/05 23:01 Order name: CT Chest Abdomen Pelvis W/O Contrast 11/05 22:56 Order name: EKG; Complete Time: 22:56 [facility] 11/06 02:07 Order name: CONS Physician Consult [facility] 11/05 22:56 Order name: Cardiac monitoring; Complete Time: 23:02 [facility] 11/05 22:56 Order name: EKG - Nurse/Tech; Complete Time: 02:43 [facility] 11/05 22:56 Order name: IV Saline Lock; Complete Time: 23:49 [facility] 11/05 22:56 Order name: Labs collected and sent; Complete Time: 23:49 [facility] 11/05 22:56 Order name: O2 Per Protocol; Complete Time: 23:03 [facility] 11/05 22:56 Order name: O2 Sat Monitoring; Complete Time: 23:02 [facility] 11/05 23:22 Order name: IV Saline Lock - Large Bore; Complete Time: 23:48 [facility] 11/05 23:22 Order name: Lo; Complete Time: 03:15 [facility] Administered Medications: 23:48 Drug: Famotidine IVP 20 mg Route: IVP; Site: right forearm; bp 23:48 Drug: morphine IVP or IV 4 mg Route: IVP; Infused Over: 4 mins; Site: right forearm; bp 23:49 Drug: NS 0.9% IV 1000 ml Route: IV; Rate: 125 ml/hr; Site: right forearm; bp 23:49 Drug: Ondansetron IVP 4 mg Route: IVP; Site: right forearm; bp 11/06 00:15 Drug: Acetaminophen NC Suppository 650 mg Route: NC; bp 00:30 Drug: MethylPrednisoLONE IVP 125 mg Route: IVP; Site: right forearm; bp 00:32 Drug: Piperacillin-Tazobactam IVPB 3.375 grams Route: IVPB; Infused Over: 60 mins; bp Site: right forearm; 00:33 Drug: Pantoprazole IVP 80 mg Route: IVP; Site: right forearm; bp 03:15 Drug: Levalbuterol Inhalation 2.5 mg Route: Inhalation; bp 03:15 Drug: Ipratropium Inhalation Aerosol 0.5 mg Route: Inhalation; bp 03:19 Drug: Pantoprazole IV 8 mg/hr Route: IV; Rate: 25 ml/hr; Site: right forearm; bp Disposition Summary: 11/06/22 01:21 Hospitalization Ordered Hospitalization Status: Inpatient Admission malachi Provider: Dasha Vizcaino cha Location: Telemetry/MedSurg (Inpatient) malachi Condition: Fair malachi Problem: new malachi Symptoms: have improved malachi Bed/Room Type: Standard malachi Room Assignment: 224(11/06/22 02:48) Diagnosis - Duodenitis malachi - Peptic ulcer, site unspecified, unspecified as acute or chronic, without hemorrhage malachi or perforation - Abdominal tenderness malachi - COPD/ Chronic obstructive pulmonary disease with (acute) exacerbation malachi - Alcohol abuse, uncomplicated malachi - Tobacco abuse counseling malachi - Tobacco use malachi - Obesity, unspecified malachi - Hypo-osmolality and hyponatremia malachi Forms: - Medication Reconciliation Form malachi - SBAR form malachi - Leadership Thank You Letter malachi Signatures: Dispatcher [employer] Jaxon Ann MD MD cha Garcia, Cindy RN RN Dylan Pavon RN RN bp Calcote, Vanessa, RN RN vc1 Corrections: (The following items were deleted from the chart) 00:35 11/05 23:24 SARS-COV-2 Antigen Rapid+I.LAB.MICHAELZ ordered. EDMS EDMS 11/06 02:48 01:21 malachi
--- NOTE | 2022-11-06 01:22 | ER ---
Nurse's Notes [facility] Name: Earnest Baker Age: 72 yrs Sex: Female : 1950 Arrival Date: 11/05/2022 Time: 22:51 Bed 8 Private MD: Diagnosis: Duodenitis;Peptic ulcer, site unspecified, unspecified as acute or chronic, without hemorrhage or perforation;Abdominal tenderness;COPD/ Chronic obstructive pulmonary disease with (acute) exacerbation;Alcohol abuse, uncomplicated;Tobacco abuse counseling;Tobacco use;Obesity, unspecified;Hypo-osmolality and hyponatremia Presentation: 11/05 22:52 Chief complaint: EMS states: COUGH AND HTN, NON-COMPLIANT WITH MEDS. AMA FROM HOSPITAL bp FOR SAME S/S FRI. Coronavirus screen: At this time, the client does not indicate any symptoms associated with coronavirus-19. Ebola Screen: No symptoms or risks identified at this time. Initial Sepsis Screen: Does the patient meet any 2 criteria? HR > 90 bpm. No. Patient's initial sepsis screen is negative. Does the patient have a suspected source of infection? Yes: Productive cough/pneumonia. Risk Assessment: Do you want to hurt yourself or someone else? Patient reports no desire to harm self or others. Note PT REFUSED INTERVENTIONS EN ROUTE. Onset of symptoms is unknown. 22:52 Method Of Arrival: EMS: [facility] bp 22:52 Acuity: AMANDA 3 bp 23:00 Chief complaint: Patient states: shortness of breath, abdominal pain. vc1 Triage Assessment: 22:53 General: Appears in no apparent distress. Behavior is appropriate for age. Pain: Denies bp pain. EENT: No deficits noted. Neuro: Level of Consciousness is awake, alert, obeys commands, Oriented to Appropriate for age. Cardiovascular: Rhythm is sinus rhythm. Respiratory: Reports cough that is. GI: No signs and/or symptoms were reported involving the gastrointestinal system. : No signs and/or symptoms were reported regarding the genitourinary system. Derm: No deficits noted. Musculoskeletal: No deficits noted. Historical: - Allergies: 22:53 No Known Allergies; bp - Home Meds: 22:53 atorvastatin 40 mg Oral tablet every evening [Active]; gabapentin 300 mg Oral capsule 2 bp caps four times a day [Active]; hydrocodone-acetaminophen 5-325 mg Oral tablet 3 times per day [Active]; Symbicort 160-4.5 mcg/actuation inhalation HFA Aerosol Inhaler 2 puffs 2 times per day [Active]; - PMHx: 22:53 COPD; diabetes mellitus; Gastroesophageal reflux disease; Home Oxygen; Hypertension; bp Hypothyroidism; Chronic pain; - Immunization history:: Adult Immunizations up to date, Client reports receiving the 2nd dose of the Covid vaccine. - Social history:: Smoking status: Patient reports the use of cigarette tobacco products, smokes one pack cigarettes per day. Screenin:55 [facility] ED Fall Risk Assessment (Adult) History of falling in the last 3 months, bp including since admission No falls in past 3 months (0 pts). Abuse screen: Denies threats or abuse. Denies injuries from another. Nutritional screening: No deficits noted. Tuberculosis screening: No symptoms or risk factors identified. Assessment: 22:55 General: SEE TRIAGE NOTE. bp 11/06 00:32 Reassessment: Patient and/or family updated on plan of care and expected duration. Pain vc1 level reassessed. Patient is alert, oriented x 3, equal unlabored respirations, skin warm/dry/pink. Patient states symptoms have improved. 01:49 Reassessment: No changes from previously documented assessment. Patient and/or family vc1 updated on plan of care and expected duration. Pain level reassessed. 03:26 Reassessment: Patient and/or family updated on plan of care and expected duration. Pain vc1 level reassessed. Patient is alert, oriented x 3, equal unlabored respirations, skin warm/dry/pink. Patient states feeling better. Patient states symptoms have improved. Vital Signs: 11/05 22:52 BP 189 / 94; Pulse 100; Resp 20; Temp 98; Pulse Ox 97% on R/A; bp 23:01 Weight 86.18 kg; Height 5 ft. 2 in. ; vc1 23:02 BP 140 / 77; Pulse 93; Resp 23; Temp 99.5(O); Pulse Ox 98% ; vc1 11/06 00:38 BP 144 / 87; Pulse 83; Resp 16; Pulse Ox 97% on R/A; bp 01:00 BP 137 / 61; Pulse 93; Resp 17; Pulse Ox 96% on R/A; vc1 02:00 BP 125 / 64; Pulse 84; Resp 19; Pulse Ox 100% ; vc1 03:00 BP 143 / 79; Pulse 88; Resp 17; Pulse Ox 95% ; vc1 11/05 23:01 Body Mass Index 34.75 (86.18 kg, 157.48 cm) vc1 ED Course: 11/05 22:52 Patient arrived in ED. bp 22:53 Triage completed. bp 22:53 Jaxon Vázquez MD is Attending Physician. malachi 22:53 Arm band placed on. bp 22:55 Patient has correct armband on for positive identification. Bed in low position. Call bp light in reach. Side rails up X2. 09 00:00 CT Chest Abdomen Pelvis W/O Contrast In Process Unspecified. EDMS 00:04 XRAY Chest (1 view) In Process Unspecified. EDMS 00:24 Dylan Chambers, MANAV is Primary Nurse. bp 01:19 Dasha Vizcaino MD is Hospitalizing Provider. malachi 03:15 Lo cath inserted, using sterile technique, 16 Fr., by ar, balloon inflated, to bp gravity drainage, urine specimen collected. 04:07 No provider procedures requiring assistance completed. Patient admitted, IV remains in vc1 place. Administered Medications: 11/05 23:48 Drug: Famotidine IVP 20 mg Route: IVP; Site: right forearm; bp 23:48 Drug: morphine IVP or IV 4 mg Route: IVP; Infused Over: 4 mins; Site: right forearm; bp 23:49 Drug: NS 0.9% IV 1000 ml Route: IV; Rate: 125 ml/hr; Site: right forearm; bp 23:49 Drug: Ondansetron IVP 4 mg Route: IVP; Site: right forearm; bp 11/06 00:15 Drug: Acetaminophen DE Suppository 650 mg Route: DE; bp 00:30 Drug: MethylPrednisoLONE IVP 125 mg Route: IVP; Site: right forearm; bp 00:32 Drug: Piperacillin-Tazobactam IVPB 3.375 grams Route: IVPB; Infused Over: 60 mins; bp Site: right forearm; 00:33 Drug: Pantoprazole IVP 80 mg Route: IVP; Site: right forearm; bp 03:15 Drug: Levalbuterol Inhalation 2.5 mg Route: Inhalation; bp 03:15 Drug: Ipratropium Inhalation Aerosol 0.5 mg Route: Inhalation; bp 03:19 Drug: Pantoprazole IV 8 mg/hr Route: IV; Rate: 25 ml/hr; Site: right forearm; bp Medication: 11/05 22:55 VIS not applicable for this client. bp Outcome: 11/06 01:21 Decision to Hospitalize by Provider. malachi 04:07 Admitted to Med/surg accompanied by nurse, via stretcher, room 224, Report called to vc1 Roseanne 04:07 Condition: good 04:07 Instructed on the need for admit. 04:08 Patient left the ED. vc1 Signatures: Dispatcher [employer] EDJaxon Dumont MD MD cha Peltier, Brian, RN RN bp Zenaida Wilson RN RN vc1 Corrections: (The following items were deleted from the chart) 00:36 00:32 Reassessment: No changes from previously documented assessment. Patient and/or vc1 family updated on plan of care and expected duration. Pain level reassessed. vc1
[2022-11-06] MEDS ORDERED: IPRATROPIUM BROM 0.5MG/2.5ML ONE (01:27)
[2022-11-06] MEDS ORDERED: LEVALBUTEROL 1.25 MG/3 ML NEB ONE (01:27)
[2022-11-06] MEDS ORDERED: METHYLPREDNISOLONE 125 MG INJ ONE (01:27)
--- NOTE | 2022-11-06 01:47 | P.HP ---
Certification for Inpatient Patient admitted to: Inpatient With expected LOS: <2 Midnights Patient will require the following post-hospital care: None Practitioner: I am a practitioner with admitting privileges, knowledge of patient current condition, hospital course, and medical plan of care. Services: Services provided to patient in accordance with Admission requirements found in Title 42 Section 412.3 of the Code of Federal Regulations Patient History Date of Service: 11/06/22 Reason for admission: Abdominal pain, black tarry stool History of Present Illness: 71-year-old female with past medical history of chronic alcohol use, hyponatremia, GERD, hypertension, hyperlipidemia hypothyroidism, chronic respiratory failure on home O2, PAD, DM2, chronic pain, and nicotine dependence who presented to the ED with complaints of abdominal pain, black tarry stools x1 day, vomiting x1 today. Reports chronic cough shortness of breath secondary to COPD with continued tobacco use, 1 pack/day on home O2 (she does not know how much 02 she uses at home) reports last alcohol abuse 3-4 days ago, She denies tremors, chest pain, edema, dizziness, hematemesis. Laboratory evaluation hyponatremia 125 improved from last admission 119, potassium is normal at 3.7, WBC is normal at 7.50, platelet count 256, BNP 3223, troponin normal at 10.8, lipase normal at 2.0, UA pending, COVID negative. Plan to admit for Duodenitis, Peptic ulcer, site unspecified, unspecified as acute or chronic, without hemorrhage or perforation, COPD/ Chronic obstructive pulmonary disease with (acute) exacerbation, Alcohol abuse, uncomplicated, Tobacco abuse, Obesity, unspecified. Allergies No Known Allergies Allergy (Verified 12/07/19 09:23) Home Medications: Cetirizine HCl [Zyrtec] 10 mg PO DAILY 05/05/21 Levothyroxine [Synthroid*] 50 mcg PO DAILY 05/05/21 Gabapentin 300 mg PO BEDTIME #30 05/12/21 Mometasone/Formoterol [Dulera 200 Mcg/5 Mcg Inhaler] 2 puff IH BID #1 inhaler 05/12/21 predniSONE [Deltasone*] 10 mg PO DAILY #70 tab 05/12/21 Hydrocodone 5/APAP 325 [[place] 5/325*] 5 - 325 mg PO Q4H PRN 06/09/22 Nitrofuran Macro [Macrobid*] 100 mg PO BID 7 Days #14 cap 06/18/22 Sodium Chloride Tab [Sodium Chloride*] 1 gm PO BID 30 Days #60 tab 06/18/22 Spironolactone [Aldactone*] 25 mg PO DAILY 30 Days #30 tab 06/18/22 - Past Medical/Surgical History Diabetic: No -: COPDon home oxygen -: Hypertension -: Chronic pain -: Major depressive disorder -: Tobacco Abuse -: hyst/bladder suspension, bilateral lens replacement Psychosocial/ Personal History: Unemployed, lives at home with her - Social History Smoking Status: Current every day smoker Alcohol use: Yes CD- Drugs: No Caffeine use: No Place of Residence: Home Review of Systems 10-point ROS is otherwise unremarkable Physical Examination - Physical Exam General: Alert, In no apparent distress, Oriented x3 HEENT: Atraumatic, Normocephalic, PERRLA Neck: Supple, 2+ carotid pulse no bruit, JVD not distended Respiratory: Diminished, Other (Rhonchi,) Cardiovascular: No edema, Normal pulses, Regular rate/rhythm, Normal S1 S2 Capillary refill: <2 Seconds Gastrointestinal: Normal bowel sounds, Other (epigastric tenderness), Tenderness Musculoskeletal: No clubbing, No swelling Integumentary: No rashes, No breakdown Neurological: Normal speech, Normal strength at 5/5 x4 extr, Sensation intact - Studies Laboratory Data (last 24 hrs) 11/05/22 11/05/22 11/05/22 23:45 23:45 23:45 WBC 7.50 Hgb 13.2 Hct 37.7 Plt Count 256 PT 9.6 INR 0.87 Sodium 125 L Potassium 3.7 BUN 20 H Creatinine 0.87 Glucose 99 Magnesium 2.1 Total Bilirubin 0.6 AST 39 H ALT 47 Alkaline Phosphatase 73 Lipase 20 Microbiology Data (last 24 hrs): 11/06/22 00:24 Nasopharnyx Influenza Type A Antigen Screen - Final 11/06/22 00:24 Nasopharnyx Influenza Type B Antigen Screen - Final Assessment and Plan - Plan Assessment and plan Duodenitis-acute Peptic ulcer, site unspecified, acute Alcohol abuse, uncomplicated CIWA precautions, DT precautions GI consult will notify in a.m. Stool occult platelet count 256, lipase normal at 2.0, COPD/ Chronic obstructive pulmonary disease with (acute) exacerbation Duo nebs, O2 2 L keep sats greater than 90% Resume appropriate home meds COVID negative. acute on chronic hyponatremia 125 improved from last admission 119, potassium is normal at 3.7, UA sodium, urine osmo, serum osmo ordered Nephrology consult Elevated BNP Daily weight, Lasix given p.o. x1 BNP 3223, troponin normal at 10.8, EKG normal sinus rhythm with marked arrhythmia, no STEMI rate 90 Tobacco abuse Educated on tobacco cessation Obesity, unspecified Diet n.p.o. Full code DVT SCDs Discharge Plan: Home Plan to discharge in: 48 Hours - Advance Directives Does patient have a Living Will: Yes Does patient have a Durable POA for Healthcare: No - Code Status/Comfort Care Code Status: Full Code Physician Review: Patient Assessed, Agree with Above Assessment and Plan Critical Care: No Time Spent Managing Pts Care (In Minutes): 50
[2022-11-06] MEDS ORDERED: ONDANSETRON 4 MG/2 ML VIAL IV PRN (02:13)
[2022-11-06] MEDS ORDERED: LORazepam 2 MG/ML VIAL IV PRN (02:13)
[2022-11-06] MEDS ORDERED: FLUMAZENIL 0.1 MG/ML (5 mL VIAL) IV PRN (02:13)
[2022-11-06] MEDS ORDERED: ALBUTEROL 2.5 MG/3 ML NEB SOL NEB PRN ×2 (02:13→15:00)
[2022-11-06] MEDS ORDERED: FUROSEMIDE 40 MG TABLET PO ONE (02:16)
[2022-11-06] MEDS ORDERED: PANTOPRAZOLE INJ 80 MG in NA CHLORIDE 0.9% 250 ML IV SCH ×2 (03:00→13:00)
[2022-11-06 04:36] VITALS: BMI 32.3
[2022-11-06 04:47] LABS: Specific Gravity 1.011 (1.005-1.030); Urine Bacteria <20 /HPF (<20); Urine Bilirubin NEGATIVE (Negative); Urine Blood Negative (Negative); Urine Clarity Clear (Clear); Urine Color Light-Yellow (Yellow); Urine Glucose NEGATIVE (Negative); Urine Protein TRACE (Negative); Urine RBC None Seen /HPF (None Seen); Urine Urobilinogen Normal (Normal); Urine pH 6.5 (5.0-7.0)
[2022-11-06 04:51] VITALS: O2SAT 95
[2022-11-06 05:56] LABS: Absolute Lymphocytes (CBC) 0.4 K/uL (0.7-4.9); Hematocrit 36.5 % (36.0-45.0); Lymphocytes % 6.3 % (15.3-44.8); MCV 97.4 fL (80-100); MPV 8.6 fL (7.6-11.3); Platelets 230 thou/uL (152-406); RBC Red Blood Cell Count 3.75 M/uL (3.86-4.86)
[2022-11-06] MEDS: chlordiazePOXIDE HCl 25 MG CAP PO SCH ×3 (06:00→11:54)
[2022-11-06 06:15] LABS: Albumin 2.8 g/dL (3.4-5.0); Bilirubin Total 0.6 mg/dL (0.2-1.0); Potassium 3.8 mEq/L (3.5-5.1); Protein, Total 5.9 g/dL (6.4-8.2)
[2022-11-06 07:19] LABS: Blood Morphology Comment NOT SEEN (NOT SEEN); Platelet Estimate ADEQ; White Blood Cell Scan OK (OK)
[2022-11-06] MEDS: IPRATROPIUM BROM 0.5MG/2.5ML NEB SCH ×2 (08:00→14:00)
[2022-11-06] MEDS ORDERED: PNEUMOCOCCAL VACCINE 0.5 ML IMVAC ONE (08:00)
[2022-11-06 08:40] VITALS: TEMP 97.3
[2022-11-06] MEDS ORDERED: THIAMINE HCL 100 MG TABLET PO SCH (09:00)
[2022-11-06] MEDS ORDERED: PIPER TAZO 3.375 GM in NA CHLORIDE 0.9% 100 ML IV SCH (09:00)
[2022-11-06] MEDS ORDERED: FOLIC ACID 1 MG TABLET PO SCH (09:00)
[2022-11-06] MEDS ORDERED: MULTIVITAMIN TAB PO SCH (09:00)
[2022-11-06 11:52] VITALS: BP 153/67
[2022-11-06] MEDS ORDERED: KCL 20 MEQ/100 mL IVPB 20 MEQ/100 ML BAG IV SCH (13:00)
--- NOTE | 2022-11-06 13:12 | CON ---
Date of Consultation: 11/06/2022 Reason For Consultation: Hyponatremia, hypokalemia. History Of Present Illness: This is a pleasant 72-year-old female with significant past medical hist ory of hypertension, COPD, depression, alcohol abuse, the patient was in her regular state of health, the patient came to the hospital complaining from nausea and vomiting for the last 48 hours. The pa christos continued active alcohol. Primary workup showed hyponatremia, sodium down to 125. For that re ason, we have been consulted. The patient denied taking any nonsteroidal. The patient not on diures is at home except for spironolactone. The patient supposed to be on salt tablet. The patient was ad mitted to the hospital, started on hydration. Past Medical History: Includes; 1.Hypertension. 2.COPD. 3.Low back pain. 4.Depression. 5.Hyponatremia. 6.PAD. Social History: Active alcohol, active smoker. Denied drugs abuse. Family History: Positive for hypertension. Allergies: NO KNOWN DRUGS ALLERGY. Home Medications: Include; 1.Cetirizine. 2.Levothyroxine. 3.Gabapentin. 4.Namenda. 5.Prednisone. 6.Hydrocodone. 7.Nitrofurantoin. 8.Salt tablet 20 g b.i.d. 9.Spironolactone. Review of Systems: Head and Neck: No red eye. No ear pain. GI: Has nausea, vomiting. Has diarrhea. : No polyuria. No dysuria. No hematuria. O And M Supervisor: No vaginal discharge. Respiratory: No shortness of breath. Cardiovascular: No chest pain. Endocrine: No polydipsia. Skin: No rash. Neuro: No weakness. Has tremor. Physical Examination: Vital Signs: When I saw the patient; blood pressure of 153/67, pulse of 77, afebrile. Chest: Clear to auscultation. Heart: S1, S2. Regular. Abdomen: Soft, nontender. Extremity: No edema. Neurologic: Alert. No focality. Laboratory Data: WBC 5.7, hemoglobin 12.4. Sodium 127, potassium of 3.8, bicarb 32, BUN 19, creatin ine 0.7. Calcium 8.2, magnesium of 2. Urinalysis; specific gravity of 1.011, urine sodium of 15. Current Medications: The patient on include; 1.Zosyn. 2.Chlordiazepoxide. 3. . 4.Ipratropium. 5.Pantoprazole. 6.Thiamin. Assessment And Plan: 1.Hyponatremia secondary to beer potomania. I am going to start the patient back on her salt tablet and we will follow up. 2.Hypertension, controlled, not optimal. Given the history of alcohol, I am going to start the patie nt on beta-felipe. 3.Hypokalemia. We will supplement. 4.Hypothyroidism, stable. 5.Shortness of breath secondary to chronic obstructive pulmonary disease as by primary. ELI/TASH Voice ID: [id number] Report ID: [id number]
--- NOTE | 2022-11-06 16:45 | EKG ---
Test Date: 2022-11-05 Test Time: 23:08:28 Employee Counselor: EVGENY MEASUREMENT RESULTS: Intervals: Rate: 94 RI: 158 QRSD: 74 QT: 358 QTc: 447 Dell: P: RI: 158 QRS: 41 T: 49 INTERPRETIVE STATEMENTS: Sinus rhythm with marked sinus arrhythmia Anteroseptal infarct, age undetermined Abnormal ECG Compared to ECG 11/03/2022 07:12:27 Sinus tachycardia no longer present Myocardial infarct finding still present Electronically Signed On 11-06-22 16:42:26 CDT by Roger Fajardo
[2022-11-06] MEDS ORDERED: SODIUM CHLORIDE 1 GM TAB PO SCH (17:00)
== END 2022-11-06 16:50 | disposition home or self-care (01) ==
LOC: ER 22:51 → INTOOBSV 11-06 02:03 → ERHOLD 11-06 02:03 → 2ND 11-06 03:26
PROVIDERS: ADMIT Hospitalist; ATTEND Hospitalist
DX: K29.80 Duodenitis without bleeding (principal); K27.9 Peptic ulcer, site unspecified, unspecified as acute or chronic, without hemorrhage or perforation; J44.1 Chronic obstructive pulmonary disease with (acute) exacerbation; J96.10 Chronic respiratory failure, unspecified whether with hypoxia or hypercapnia; F10.10 Alcohol abuse, uncomplicated; E87.1 Hypo-osmolality and hyponatremia; K21.9 Gastro-esophageal reflux disease without esophagitis; I10 Essential (primary) hypertension; E78.5 Hyperlipidemia, unspecified; E03.9 Hypothyroidism, unspecified; I73.9 Peripheral vascular disease, unspecified; E11.9 Type 2 diabetes mellitus without complications; G89.29 Other chronic pain; F17.210 Nicotine dependence, cigarettes, uncomplicated; R11.10 Vomiting, unspecified; R79.89 Other specified abnormal findings of blood chemistry; E66.9 Obesity, unspecified; Z99.81 Dependence on supplemental oxygen; Z68.32 Body mass index [BMI] 32.0-32.9, adult; Z20.822 Contact with and (suspected) exposure to COVID-19
CPT/HCPCS: 93005; 87040 ×2; 85025 ×2; 81001; 80048; 36415; 83735 ×2; 84132; 85610; 84300 ×2; 80076; 83605; 85730; 84484; 83690; 80053; 83880; 87635; 83930; 83935 ×2; 87804 ×2; 71250; 74176; 71045; J7614; J2543 ×2; J7644; C9113; J2930; J2405; J7050; J7030; G0378